=== PATIENT | male | born 1945 | race Caucasian/White ===

== ENCOUNTER → 2016-08-09 | Outpatient (CLI) | payer MEDICARE ==
--- NOTE | 2016-08-09 15:19 | CT ---
EXAMINATION TYPE: CT cervical spine wo con DATE OF EXAM: 08/09/2016 3:07 PM COMPARISON: NONE HISTORY: Headaches and neck pain. CT DLP: 358.80 mGycm. Automated Exposure Control for Dose Reduction was Utilized. TECHNIQUE: CT scan of the cervical spine is obtained without contrast, axial images are obtained, sa gittal and coronal reformatted images are also reviewed. FINDINGS: Cervical spine is visualized in its entirety from C1 through upper thoracic levels, demonst rates satisfactory alignment without evidence of acute fracture or dislocation. Prevertebral soft ti ssue appears within normal limits. The C1-C2 articulation is within normal limits on the coronal ela ges. Vertebral body heights are maintained. There is moderate disc space narrowing and spurring at C5 -C6 and C6-C7 levels. Posterior spur disc complex is seen at C6-C7 level on sagittal image 37 effacin g anterior thecal sac. Review of axial images shows the C2-C3 level to appear within normal limits. Axial images at C3-C4 level show uncovertebral facet degenerative changes bilaterally with marginal s purring causing asymmetric moderate to severe right-sided neural foraminal narrowing and mild left-si ded neural foraminal narrowing seen best on axial image 60. Spinal canal is preserved. Axial images at C4-C5 level show right-sided uncovertebral facet degenerative changes and marginal sp urring causing advanced right-sided neural foraminal narrowing near axial image 67. Left-sided neural foramen is patent. Spinal canal is preserved. Axial images at C5-C6 level show some left-sided marginal spurring with posterior spur disc complex m ildly effacing the anterior thecal sac, there is mild right and mild to moderate left-sided neural fo raminal narrowing at this level identified. Axial images at C6-C7 level show posterior spur disc complex effacing anterior thecal near axial ela ge 81 through 83 with advanced right and moderate to advanced left-sided neural foraminal narrowing s een as there is marginal spurring present. Axial images at C7-T1 level show uncovertebral facet degenerative changes bilaterally causing moderat e to advanced left-sided neural foraminal narrowing near axial image 89, right-sided neural foramen i s patent. There is heterogeneity of thyroid which is felt normal in size. There is apical pleural thickening bilaterally extending posteriorly on the right. There is mild calc ified plaques at bilateral carotid bulbs. IMPRESSION: Multilevel degenerative changes in the cervical spine as detailed above most prominent at C6-C7 level.
== END | disposition home or self-care (01) ==
LOC: RADCTMAIN 14:51
PROVIDERS: ATTEND Psychiatry & Neurology Neurology
DX: M47.812 Spondylosis without myelopathy or radiculopathy, cervical region (principal)
CPT/HCPCS: 72125

== ENCOUNTER → 2017-08-13 | Outpatient (CLI) | payer MEDICARE ==
--- NOTE | 2017-08-13 16:25 | CT ---
EXAMINATION TYPE: CT cervical spine wo con DATE OF EXAM: 08/13/2017 COMPARISON: NONE HISTORY: Neck pain and stiffness CT DLP: [address] of the cervical spine was performed with bone and soft tissue window settings submitted . Coronal and sagittal reconstruction is obtained. C2-3: Within normal limits. C3-4: Moderate degenerative disc space narrowing. Mild posterior disc bulge. No herniation or central stenosis. Degenerative change of the uncovertebral joints resulting in mild bilateral foraminal encr oachment. C4-5: Mild degenerative disc space narrowing. Mild posterior disc bulge. No herniation or central theresa nosis. Mild right foraminal encroachment. C5-6: Moderate degenerative disc space narrowing. Posterior disc bulge with partial encapsulating spu r resulting in disc endplate complex. No evidence for central stenosis. Mild bilateral foraminal encr oachment. C6-7:Moderate degenerative disc space narrowing. Posterior disc bulge with partial encapsulating spur resulting in disc endplate complex. No evidence for central stenosis. Mild bilateral foraminal encro achment. C7-T1: Within normal limits. There is normal alignment and prevertebral soft tissues. I do not see evidence for fracture or sublu xation. The lung apices are clear IMPRESSION: 1. Degenerative disc space narrowing and degenerative disc disease with disc bulging and disc endplat e complex as noted. 2. Foraminal encroachment as detailed above.
== END | disposition home or self-care (01) ==
LOC: RADCTMAIN 15:10
PROVIDERS: ATTEND Psychiatry & Neurology Neurology
DX: M48.02 Spinal stenosis, cervical region (principal); M50.30 Other cervical disc degeneration, unspecified cervical region; M50.21 Other cervical disc displacement, high cervical region; Z91.041 Radiographic dye allergy status; Z88.8 Allergy status to other drugs, medicaments and biological substances
CPT/HCPCS: 72125

== ENCOUNTER → 2017-08-15 | Outpatient (CLI) | payer MEDICARE ==
--- NOTE | 2017-08-15 11:00 | FL ---
EXAMINATION TYPE: FL barium swallow DATE OF EXAM: 08/15/2017 CLINICAL HISTORY: Reflux per order. History of Jermain fundoplication surgery 2-3 years ago with progr essive dysphasia or food feeling getting stuck. History of prior dilatation after surgery. TECHNIQUE: A single contrast esophagram is performed utilizing barium. A total of 29 seconds of flu oroscopic time was utilized during procedure. 34 spot images are saved for surgeon. COMPARISON: Upper GI study February 08, 2016 FINDINGS: The esophagus shows some abnormal secondary and tertiary contractions but fairly satisfacto ry emptying into stomach, some gastric folds are seen above diaphragm with good passage at level of d iaphragmatic hiatus into gastric fundus. No evidence of recurrent hiatal hernia or significant focal stricture noted. No contrast extravasation to suggest leak. IMPRESSION: No significant stricture or narrowing is seen to account for patient's symptoms. Some u nderlying esophageal dysmotility redemonstrated.
== END | disposition home or self-care (01) ==
LOC: RADFLMAIN 09:57
PROVIDERS: ATTEND Surgery
DX: K22.4 Dyskinesia of esophagus (principal)
CPT/HCPCS: 74220

== ENCOUNTER → 2018-02-25 | Outpatient (CLI) | payer MEDICARE ==
[2018-02-26 12:27] LABS: Albumin 3.1 g/dL (3.5-5.0); Calcium 9.1 mg/dL (8.4-10.2); Potassium 4.5 mmol/L (3.5-5.1); Total Bilirubin 0.6 mg/dL (0.2-1.3); Total Protein 5.6 g/dL (6.3-8.2)
== END | disposition home or self-care (01) ==
LOC: LABPAT 10:55
PROVIDERS: ATTEND Internal Medicine Clinical Cardiac Electrophysiology
DX: Z01.812 Encounter for preprocedural laboratory examination (principal); I48.2 Chronic atrial fibrillation
CPT/HCPCS: 80053; 84443

== ENCOUNTER → 2018-03-02 | Day surgery (SDC) | payer MEDICARE ==
[2018-02-24 08:50] VITALS: BMI 20.2
[~2018-03-02] MED LIST: IV FLUID CONTINUATION 450 ML IV ONE; LACTATED RINGERS 1,000 ML IV SCH; MIDAZOLAM 2 MG/2 ML VIAL ONE; PROPOFOL 10 MG/ML 50 ML VIAL IV ONE; SODIUM CHLORIDE 0.9% 1,000 ML IV SCH
[2018-03-02 11:40] VITALS: TEMP 96.8
--- NOTE | 2018-03-02 11:57 | PCN ---
PROCEDURE NOTE Mr. Godoy is a 72-year-old male patient who has history of polymorphic VT and I adjusted his medications, but his R-waves were very diminutive in the bipolar mode. Therefore he was brought in for DFT testing under anesthesia. The ICD was interrogated. The bipolar R-waves were 2.1 mV. The integrated bipolar signals are greater than 4 mV. Therefore, we reprogrammed this into the integrated bipolar mode for DFT testing. SVC coil was left turned on. Tip to coil R-waves at the end of the procedure were 4.9 mV. Thresholds were within normal limits. Pacing impedance 304 ohms, RV coil impedance was 33 ohms, SVC coil impedance 42 ohms, pacing threshold 1.4 V at 0.4 milliseconds. DFT TESTING: DFT level testing was performed under anesthesia. Shock and T-wave protocol was used to induce ventricular fibrillation this was adequately and appropriately detected at sensitivity and successfully internally defibrillated with a 10-joule shock. The charge time was 1.8 seconds. Shock impedance 35 ohms. No post shock noise. Type 2 conversion noted. The defibrillator was then reprogrammed in the bipolar mode with the SVC coil turned on. First cardioversion at 10 joules. First defibrillation at 20 joules, appropriate antitachycardia pacing cardioversion defibrillations were programmed. RESULT: Successful sensing of ventricular fibrillation in the bipolar mode. The device was programmed accordingly and long detection intervals were programmed. The patient tolerated the procedure well without any acute complications. PLAN: Continue current medications. No antiarrhythmic drug therapy for now. MMODL / IJN: [id number] /
[2018-03-02 13:18] VITALS: BP 102/74; PULSE 107; RESP 16
== END ==
LOC: CATHEP 09:29
PROVIDERS: ATTEND Internal Medicine Clinical Cardiac Electrophysiology
DX: I47.2 Ventricular tachycardia (principal); Z45.02 Encounter for adjustment and management of automatic implantable cardiac defibrillator; I48.91 Unspecified atrial fibrillation; I11.0 Hypertensive heart disease with heart failure; I50.9 Heart failure, unspecified; E78.5 Hyperlipidemia, unspecified; I25.2 Old myocardial infarction; D86.9 Sarcoidosis, unspecified; N28.9 Disorder of kidney and ureter, unspecified; N42.9 Disorder of prostate, unspecified; Z86.73 Personal history of transient ischemic attack (TIA), and cerebral infarction without residual deficits; M19.90 Unspecified osteoarthritis, unspecified site; K21.9 Gastro-esophageal reflux disease without esophagitis; Z79.01 Long term (current) use of anticoagulants; Z79.891 Long term (current) use of opiate analgesic; Z79.52 Long term (current) use of systemic steroids; Z79.899 Other long term (current) drug therapy; Z88.8 Allergy status to other drugs, medicaments and biological substances; Z91.048 Other nonmedicinal substance allergy status; Z91.09 Other allergy status, other than to drugs and biological substances
CPT/HCPCS: 93642; J2250; J2704

== ENCOUNTER 2018-04-03 04:43 | Inpatient (IN) | payer MEDICARE ==
[~2018-04-03 04:43] MED LIST changes: +HALOPERIDOL LACTATE 5 MG/ML 1 ML VIAL IVP ONE; -IV FLUID CONTINUATION 450 ML IV ONE; -LACTATED RINGERS 1,000 ML IV SCH; -MIDAZOLAM 2 MG/2 ML VIAL ONE; -PROPOFOL 10 MG/ML 50 ML VIAL IV ONE; -SODIUM CHLORIDE 0.9% 1,000 ML IV SCH
[2018-04-03] MEDS ORDERED: SODIUM CHLORIDE 0.9% 1,000 ML IV STA (04:46)
--- NOTE | 2018-04-03 04:51 | ED ---
Altered Mental Status HPI - General Stated Complaint: Altered Mental Status Time Seen by Provider: 04/03/18 04:46 Source: RN notes reviewed, old records reviewed - History of Present Illness Initial Comments: This is a 72-year-old male the ER for evaluation. She is presenting today for evaluation regards to altered mental state. Patient unable of history history edema EMS and patient's chart, patient has been altered all night per the , she states that he actually this last time he had a urinary tract infection MD Complaint: altered mental status, confusion, decreased responsiveness -: hour(s) Severity: severe Consistency of Symptoms: waxing and waning, getting worse Context: recent fever Associated Symptoms: denies other symptoms - Related Data Home Medications Medication Instructions Recorded Confirmed Albuterol Sulfate [Proair Hfa] 2 puff INHALATION RT-BID PRN 10/27/13 02/24/18 Carvedilol [Coreg*] 25 mg PO BID 10/27/13 02/24/18 Citalopram Hydrobromide 20 mg PO QAM 10/27/13 02/24/18 [Citalopram HBr] Dicyclomine [Bentyl] 20 mg PO AC-BID PRN 10/27/13 02/24/18 Lovastatin [Mevacor] 40 mg PO QAM 10/27/13 02/24/18 Ergocalciferol [Vitamin D2 50,000 unit PO [id number] 12/23/14 02/24/18 (DRISDOL)] Furosemide [Lasix] 40 mg PO DAILY 12/23/14 02/24/18 Fludrocortisone [Florinef] 0.1 mg PO QAM 02/27/15 02/24/18 oxyCODONE-APAP 7.5-325MG [Percocet 1 tab PO TID PRN 03/03/15 02/24/18 7.5-325 mg] Citalopram Hydrobromide 20 mg PO HS 03/27/16 02/24/18 [Citalopram HBr] Finasteride [Proscar] 5 mg PO QAM 03/27/16 02/24/18 Fludrocortisone [Florinef] 0.05 mg PO HS 03/27/16 02/24/18 Levothyroxine Sodium [Synthroid] 25 mcg PO DAILY 03/27/16 02/24/18 Magnesium Chloride [Slow-Mag] 64 mg PO BID 03/27/16 02/24/18 clonazePAM [KlonoPIN] 0.5 mg PO HS 03/27/16 02/24/18 Eylea-Injection 1 dose RIGHT EYE Q42D 02/24/18 Furosemide [Lasix] 60 mg PO PC-LUNCH 02/24/18 02/24/18 Hydrocortisone [Cortef] 10 mg PO BID 02/24/18 02/24/18 Methylcellulose (with Sugar) 1 dose PO DAILY 02/24/18 02/24/18 [Citrucel Powder] Midodrine HCl [ProAmatine] 10 mg PO BID 02/24/18 02/24/18 Potassium Chloride [K-Tab ER] 20 meq PO DAILY 02/24/18 02/24/18 Warfarin [Coumadin] 2.5 mg PO DAILY 02/24/18 02/24/18 Previous Rx's Medication Instructions Recorded Lisinopril [Zestril] 2.5 mg PO DAILY #30 tab 04/01/16 Spironolactone [Aldactone] 25 mg PO DAILY #30 tab 04/01/16 Tamsulosin [Flomax] 0.4 mg PO PC-SUPPER #30 cap.er.24h 04/01/16 Allergies Allergy/AdvReac Type Severity Reaction Status Date / Time Iodinated Contrast- Oral and Allergy Rash/Hives Verified 04/03/18 04:53 IV Dye [Iodinated Contrast Media - IV Dye] nitroglycerin Allergy passed out Verified 04/03/18 04:53 piperacillin sodium Allergy Confusion Verified 04/03/18 04:53 [From Zosyn] tazobactam sodium Allergy Confusion Verified 04/03/18 04:53 [From Zosyn] adhesive AdvReac SKIN TURNS Verified 04/03/18 04:53 RED Review of Systems ROS Statement: Those systems with pertinent positive or pertinent negative responses have been documented in the HPI. ROS Other: All systems not noted in ROS Statement are negative. Past Medical History Past Medical History: Atrial Fibrillation, Heart Failure, CVA/TIA, GERD/Reflux, Hearing Disorder / Deafness, Hyperlipidemia, Hypertension, Memory Impairment, Myocardial Infarction ([place]), Osteoarthritis (OA), Prostate Disorder, Respiratory Disorder Additional Past Medical History / Comment(s): CVA BEHIND RT EYE-POOR VISION, migraine & cluster headaches,, [place]'s x 2 ( age unknown), cardiomyopathy, hole in stomach from excedrin -it caused aspiration after which he was in an induced coma and on a ventilator for 9 days, sarcoidosis of lungs, abdominal and stomach pain, frequent diarrhea, several head injuries as a child, arthiritis bilateral knees and hips, multiple lipomas, kidney stones, enlarged prostate, edema lower legs. Having difficulty swallowing now. Last Myocardial Infarction Date:: unknown History of Any Multi-Drug Resistant Organisms: MRSA Date of last positivie culture/infection: 08/15/09 MDRO Source:: LUNGS Past Surgical History: AICD, Bowel Resection, Heart Catheterization With Stent, Hernia Repair, Orthopedic Surgery, Pacemaker, Prostate Surgery, Tonsillectomy Additional Past Surgical History / Comment(s): 12/28/14 Lap jose fundoplasty with mesh and lap lysis of adhesions. Other SX: AICD 2008 with replacement 2013 (medtronic), 1995 bowel resection d/t perforation with colostomy with eventual reversal of colostomy, 2009-surgery for "hole in stomach", 2007 blephoplasty bilaterally, 2001 deviated septum, 2003 TURP, 1975 vasectomy, 2012 R rotator cuff, surgery on "head" due to injuries, numerous lipoma removals -4 from L leg, 05/2014, 08/2013 EGD for removal of dentist spray nozzle, 1955 Aguilar surgery at [facility], 1975 vasectomy, lithrotripsy, bilateral inquinal hernia repairs with R side done x3, cardiac caths with stents Past Anesthesia/Blood Transfusion Reactions: Postoperative Nausea & Vomiting ( PONV) Additional Past Anesthesia/Blood Transfusion Reaction / Comment(s): Pt has never recieved blood Date of Last Stent Placement:: 2007 Type of Cardiac Device: AICD Device Placement Date:: 08/2013 Medtronic Smoking Status: Former smoker - Past Family History Brother(s) Family Medical History: Cancer Father Family Medical History: Renal Disease, Respiratory Disorder Additional Family Medical History / Comment(s): Father had some kind of problem with his lungs. Mother Family Medical History: Coronary Artery Disease (CAD), Dementia Sister(s) Family Medical History: No Reported History General Exam Limitations: altered mental status General appearance: alert, in no apparent distress Head exam: Present: atraumatic, normocephalic, normal inspection Eye exam: Present: normal appearance, PERRL, EOMI. Absent: scleral icterus, conjunctival injection, periorbital swelling ENT exam: Present: normal exam, mucous membranes moist Neck exam: Present: normal inspection. Absent: tenderness, meningismus, lymphadenopathy Respiratory exam: Present: normal lung sounds bilaterally. Absent: respiratory distress, wheezes, rales, rhonchi, stridor Cardiovascular Exam: Present: regular rate, normal rhythm, normal heart sounds. Absent: systolic murmur, diastolic murmur, rubs, gallop, clicks GI/Abdominal exam: Present: soft, normal bowel sounds. Absent: distended, tenderness, guarding, rebound, rigid Extremities exam: Present: normal inspection, full ROM, normal capillary refill. Absent: tenderness, pedal edema, joint swelling, calf tenderness Back exam: Present: normal inspection Neurological exam: Present: alert, oriented X3, CN II-XII intact Psychiatric exam: Present: normal affect, normal mood Skin exam: Present: warm, dry, intact, normal color. Absent: rash Course Vital Signs 04/03/18 04/03/18 04/03/18 04:47 05:17 05:30 Temperature 101.8 F H Pulse Rate 92 90 87 Respiratory 20 20 18 Rate Blood Pressure 147/94 136/84 141/87 O2 Sat by Pulse 95 95 95 Oximetry 04/03/18 04/03/18 05:45 06:00 Temperature Pulse Rate 74 77 Respiratory 16 15 Rate Blood Pressure 154/77 152/90 O2 Sat by Pulse 96 100 Oximetry - Reevaluation(s) Reevaluation #1: 04/03/18 06:28 Medical record is reviewed noncontributory Reevaluation #2: 04/03/18 06:28 Patient with no change in mental state Medical Decision Making - Medical Decision Making 72 male the ER for evaluation with altered mental status. Patient will be admitted for continued monitoring of altered mental status fever rel Petrini a place on antibiotics. - Lab Data Result diagrams: 04/03/18 04:55 04/03/18 04:55 Lab Results 04/03/18 04/03/18 04/03/18 Range/Units 04:55 04:55 04:55 WBC 8.8 (3.8-10.6) k/uL RBC 4.74 (4.30-5.90) m/uL Hgb 13.9 (13.0-17.5) gm/dL Hct 44.2 (39.0-53.0) % MCV 93.3 (80.0-100.0) fL MCH 29.4 (25.0-35.0) pg MCHC 31.5 (31.0-37.0) g/dL RDW 15.3 (11.5-15.5) % Plt Count 217 (150-450) k/uL Neutrophils % 68 % Lymphocytes % 15 % Monocytes % 9 % Eosinophils % 4 % Basophils % 1 % Neutrophils # 6.0 (1.3-7.7) k/uL Lymphocytes # 1.3 (1.0-4.8) k/uL Monocytes # 0.8 (0-1.0) k/uL Eosinophils # 0.3 (0-0.7) k/uL Basophils # 0.1 (0-0.2) k/uL PT (9.0-12.0) sec INR (<1.2) APTT (22.0-30.0) sec Sodium 138 (137-145) mmol/L Potassium 3.9 (3.5-5.1) mmol/L Chloride 100 (98-107) mmol/L Carbon Dioxide 32 H (22-30) mmol/L Anion Gap 6 mmol/L BUN 22 H (9-20) mg/dL Creatinine 1.20 (0.66-1.25) mg/dL Est GFR (CKD-EPI)AfAm 69 (>60 ml/min/1.73 sqM) Est GFR (CKD-EPI)NonAf 59 (>60 ml/min/1.73 sqM) Glucose 103 H (74-99) mg/dL Plasma Lactic Acid Jun (0.7-2.0) mmol/L Calcium 9.0 (8.4-10.2) mg/dL Phosphorus 1.4 L (2.5-4.5) mg/dL Magnesium 1.7 (1.6-2.3) mg/dL Total Bilirubin 1.2 (0.2-1.3) mg/dL AST 25 (17-59) U/L ALT 30 (21-72) U/L Alkaline Phosphatase 64 (38-126) U/L Total Creatine Kinase 30 L (55-170) U/L CK-MB (CK-2) 1.8 (0.0-2.4) ng/mL CK-MB (CK-2) Rel Index 6.0 Troponin I 0.175 H* (0.000-0.034) ng/mL Total Protein 6.3 (6.3-8.2) g/dL Albumin 3.4 L (3.5-5.0) g/dL Urine Color Urine Appearance (Clear) Urine pH (5.0-8.0) Ur Specific [place] (1.001-1.035) Urine Protein (Negative) Urine Glucose (UA) (Negative) Urine Ketones (Negative) Urine Blood (Negative) Urine Nitrite (Negative) Urine Bilirubin (Negative) Urine Urobilinogen (<2.0) mg/dL Ur Leukocyte Esterase (Negative) Influenza Type A RNA (Not Detectd) Influenza Type B (PCR) (Not Detectd) 04/03/18 04/03/18 04/03/18 Range/Units 04:55 04:55 04:55 WBC (3.8-10.6) k/uL RBC (4.30-5.90) m/uL Hgb (13.0-17.5) gm/dL Hct (39.0-53.0) % MCV (80.0-100.0) fL MCH (25.0-35.0) pg MCHC (31.0-37.0) g/dL RDW (11.5-15.5) % Plt Count (150-450) k/uL Neutrophils % % Lymphocytes % % Monocytes % % Eosinophils % % Basophils % % Neutrophils # (1.3-7.7) k/uL Lymphocytes # (1.0-4.8) k/uL Monocytes # (0-1.0) k/uL Eosinophils # (0-0.7) k/uL Basophils # (0-0.2) k/uL PT 13.8 H (9.0-12.0) sec INR 1.5 H (<1.2) APTT 22.4 (22.0-30.0) sec Sodium (137-145) mmol/L Potassium (3.5-5.1) mmol/L Chloride (98-107) mmol/L Carbon Dioxide (22-30) mmol/L Anion Gap mmol/L BUN (9-20) mg/dL Creatinine (0.66-1.25) mg/dL Est GFR (CKD-EPI)AfAm (>60 ml/min/1.73 sqM) Est GFR (CKD-EPI)NonAf (>60 ml/min/1.73 sqM) Glucose (74-99) mg/dL Plasma Lactic Acid Jun 2.4 H* (0.7-2.0) mmol/L Calcium (8.4-10.2) mg/dL Phosphorus (2.5-4.5) mg/dL Magnesium (1.6-2.3) mg/dL Total Bilirubin (0.2-1.3) mg/dL AST (17-59) U/L ALT (21-72) U/L Alkaline Phosphatase (38-126) U/L Total Creatine Kinase (55-170) U/L CK-MB (CK-2) (0.0-2.4) ng/mL CK-MB (CK-2) Rel Index Troponin I (0.000-0.034) ng/mL Total Protein (6.3-8.2) g/dL Albumin (3.5-5.0) g/dL Urine Color Urine Appearance (Clear) Urine pH (5.0-8.0) Ur Specific [place] (1.001-1.035) Urine Protein (Negative) Urine Glucose (UA) (Negative) Urine Ketones (Negative) Urine Blood (Negative) Urine Nitrite (Negative) Urine Bilirubin (Negative) Urine Urobilinogen (<2.0) mg/dL Ur Leukocyte Esterase (Negative) Influenza Type A RNA Not Detected (Not Detectd) Influenza Type B (PCR) Not Detected (Not Detectd) 04/03/18 Range/Units 05:00 WBC (3.8-10.6) k/uL RBC (4.30-5.90) m/uL Hgb (13.0-17.5) gm/dL Hct (39.0-53.0) % MCV (80.0-100.0) fL MCH (25.0-35.0) pg MCHC (31.0-37.0) g/dL RDW (11.5-15.5) % Plt Count (150-450) k/uL Neutrophils % % Lymphocytes % % Monocytes % % Eosinophils % % Basophils % % Neutrophils # (1.3-7.7) k/uL Lymphocytes # (1.0-4.8) k/uL Monocytes # (0-1.0) k/uL Eosinophils # (0-0.7) k/uL Basophils # (0-0.2) k/uL PT (9.0-12.0) sec INR (<1.2) APTT (22.0-30.0) sec Sodium (137-145) mmol/L Potassium (3.5-5.1) mmol/L Chloride (98-107) mmol/L Carbon Dioxide (22-30) mmol/L Anion Gap mmol/L BUN (9-20) mg/dL Creatinine (0.66-1.25) mg/dL Est GFR (CKD-EPI)AfAm (>60 ml/min/1.73 sqM) Est GFR (CKD-EPI)NonAf (>60 ml/min/1.73 sqM) Glucose (74-99) mg/dL Plasma Lactic Acid Jun (0.7-2.0) mmol/L Calcium (8.4-10.2) mg/dL Phosphorus (2.5-4.5) mg/dL Magnesium (1.6-2.3) mg/dL Total Bilirubin (0.2-1.3) mg/dL AST (17-59) U/L ALT (21-72) U/L Alkaline Phosphatase (38-126) U/L Total Creatine Kinase (55-170) U/L CK-MB (CK-2) (0.0-2.4) ng/mL CK-MB (CK-2) Rel Index Troponin I (0.000-0.034) ng/mL Total Protein (6.3-8.2) g/dL Albumin (3.5-5.0) g/dL Urine Color Yellow Urine Appearance Clear (Clear) Urine pH 5.5 (5.0-8.0) Ur Specific [place] 1.011 (1.001-1.035) Urine Protein Negative (Negative) Urine Glucose (UA) Negative (Negative) Urine Ketones Negative (Negative) Urine Blood Negative (Negative) Urine Nitrite Negative (Negative) Urine Bilirubin Negative (Negative) Urine Urobilinogen <2.0 (<2.0) mg/dL Ur Leukocyte Esterase Negative (Negative) Influenza Type A RNA (Not Detectd) Influenza Type B (PCR) (Not Detectd) - EKG Data -: EKG Interpreted by Me (EKG shows rhythm of 87, QRS 90, QTc 418) - Radiology Data Radiology results: report reviewed (CT brain chest x-rays negative for acute disease), image reviewed Disposition Clinical Impression: Delirium due to general medical condition, Hypomagnesemia, Altered mental status, Fever Disposition: ADMITTED IP TO THIS [facility] Condition: Fair Is patient prescribed a controlled substance at d/c from ED?: No Referrals: Merritt Patel MD [Primary Care Provider] - 1-2 days
[2018-04-03 05:27] LABS: Basophils # (A) 0.1 k/uL (0-0.2); Basophils % (A) 1 %; Eosinophils # (A) 0.3 k/uL (0-0.7); Eosinophils % (A) 4 %; HCT 44.2 % (39.0-53.0); HGB 13.9 gm/dL (13.0-17.5); Lymphocytes # (A) 1.3 k/uL (1.0-4.8); Lymphocytes % (A) 15 %; MCH 29.4 pg (25.0-35.0); MCHC 31.5 g/dL (31.0-37.0); MCV 93.3 fL (80.0-100.0); Mean Platelet Volume 7.8; Monocytes # (A) 0.8 k/uL (0-1.0); Monocytes % (A) 9 %; Neutrophils % (A) 68 %; Platelet Count 217 k/uL (150-450); RBC 4.74 m/uL (4.30-5.90); RDW 15.3 % (11.5-15.5); WBC 8.8 k/uL (3.8-10.6)
[2018-04-03 05:27] LABS: Appearance,Urine Clear (Clear); Bilirubin,Urine Negative (Negative); Blood,Urine Negative (Negative); Color,Urine Yellow; Glucose,Urine (UA) Negative (Negative); Ketones,Urine Negative (Negative); Leukocyte Esterase,Urine Negative (Negative); Nitrite,Urine Negative (Negative); PH, Urine 5.5 (5.0-8.0); Protein,Urine Negative (Negative); Specific Gravity,Urine 1.011 (1.001-1.035); Urobilinogen,Urine <2.0 mg/dL (<2.0)
[2018-04-03 05:37] LABS: Albumin 3.4 g/dL (3.5-5.0); Magnesium 1.7 mg/dL (1.6-2.3); Phosphorus 1.4 mg/dL (2.5-4.5); Potassium 3.9 mmol/L (3.5-5.1); Total Bilirubin 1.2 mg/dL (0.2-1.3); Total Protein 6.3 g/dL (6.3-8.2)
[2018-04-03 05:43] LABS: INR 1.5 (<1.2); Partial Thromboplastin Time 22.4 sec (22.0-30.0); Prothrombin Time 13.8 sec (9.0-12.0)
--- NOTE | 2018-04-03 06:05 | XR ---
EXAMINATION TYPE: XR chest 2V DATE OF EXAM: 04/03/2018 COMPARISON: 03/28/2016 HISTORY: Altered mental status TECHNIQUE: Frontal and lateral views of the chest are obtained. FINDINGS: Heart is moderately enlarged. There is no pulmonary consolidation. There is slight pulmona ry vascular congestion. There is left axillary pacemaker with the lead tip in the right ventricle. Th ere are chest leads. IMPRESSION: Cardiomegaly. There is new mild pulmonary vascular congestion compared to last exam
[2018-04-03 06:08] LABS: Creatine Kinase MB 1.8 ng/mL (0.0-2.4)
--- NOTE | 2018-04-03 06:15 | CT ---
EXAMINATION TYPE: CT brain wo con DATE OF EXAM: 04/03/2018 COMPARISON: November 18, 2015 HISTORY: ams CT DLP: 1470.3 mGycm Automated exposure control for dose reduction was used. FINDINGS: There is cerebral cortical atrophy. There is no mass effect nor midline shift. There is no sign of in tracranial hemorrhage. The calvarium is intact. IMPRESSION: CEREBRAL ATROPHY. NO ACUTE INTRACRANIAL ABNORMALITY. NO CHANGE. STABLE MILD CHRONIC LEFT-SIDED ETHMOI D SINUSITIS.
[2018-04-03 06:27] LABS: Troponin I 0.175 ng/mL (0.000-0.034)
[2018-04-03] MEDS ORDERED: FAMOTIDINE 20 MG/2 ML VIAL IV STA ×2 (06:54→07:12)
[2018-04-03] MEDS ORDERED: diphenhydrAMINE 50 MG/ML 1 ML VIAL IVP STA ×2 (06:54→07:12)
[2018-04-03] MEDS ORDERED: LORazepam 2 MG/ML INJ IV STA ×2 (06:54→08:54)
[2018-04-03] MEDS ORDERED: MORPHINE SULFATE 4 MG/ML SYRINGE IVP STA (06:54)
[2018-04-03] MEDS ORDERED: methylPREDNISolone SOD SUCCI 125 MG/2 ML VIAL IV STA ×2 (06:54→07:12)
[2018-04-03] MEDS ORDERED: metroNIDAZOLE-NS PMX 500 MG in SALINE 1 100ML.BAG IVPB STA (07:05)
[2018-04-03] MEDS ORDERED: LEVOFLOXACIN 750MG-D5W PMX 750 MG in DEXTROSE/WATER 1 150ML.BAG IVPB STA (07:06)
[2018-04-03] MEDS: SODIUM CHLORIDE 0.9% 500 ML 500 ML IV SCH ×2 (07:21→07:42)
[2018-04-03] MEDS: SODIUM CHLORIDE 0.9% 1,000 ML IV SCH ×3 (07:41→21:56)
[2018-04-03] MEDS ORDERED: ZIPRASIDONE 20 MG VIAL IM STA (08:54)
--- NOTE | 2018-04-03 10:42 | CT ---
EXAMINATION TYPE: CT abdomen pelvis w con DATE OF EXAM: 04/03/2018 COMPARISON: HISTORY: ALTERED MENTAL STATUS/AB PAIN CT DLP: 363.9 mGycm CONTRAST: CT scan of the abdomen and pelvis is performed without Oral Contrast and with IV Contrast, patient in jected with 100 mL of Isovue 300. Contrast-enhanced CT of the abdomen and pelvis was performed. Portions of the study are limited by st reak artifact from the patient's hand positioning and metallic ring artifact. Portions of the abdomen are also cut off the [id number]. FINDINGS: LUNG BASES-: Massive cardiomegaly. Bilateral pleural effusions noted. LIVER/GB: No calcified gallstones. No space occupying hepatic lesion. Biliary tree is of normal ca liber. PANCREAS: No inflammation. No distinct mass. SPLEEN: No splenic enlargement. No lesion seen. ADRENALS: No nodule. No thickening. KIDNEYS/BLADDER: No hydronephrosis. No nephrolithiasis. No distinct renal mass. Urinary bladder g rossly unremarkable. BOWEL: Mild distention small bowel which may reflect mild ileus. Mild fecal stasis. The appendix is p oorly visualized. No inflammation. GENITAL ORGANS: No gross abnormality. LYMPH NODES: No greater than 1cm abdominal or pelvic lymph nodes are appreciated. AORTA: No significant abnormality. OSSEOUS STRUCTURES: No significant abnormality is seen. OTHER: No significant additional abnormality is seen. IMPRESSION: 1. Limited study. 2. Massive cardiomegaly with bilateral pleural effusion small in size. 3. Small bowel ileus. Correlate for enteritis. 4. Mild constipation.
[2018-04-03] MEDS ORDERED: BUTALB/APAP/CAFF 50-325-40MG TAB PO PRN (11:22)
[2018-04-03] MEDS ORDERED: CARVEDILOL 12.5 MG TAB PO SCH (11:30)
[2018-04-03] MEDS ORDERED: CITALOPRAM HYDROBROMIDE 20 MG TAB PO SCH (11:30)
[2018-04-03] MEDS ORDERED: HYDROCORTISONE 20 MG TAB PO SCH (11:30)
[2018-04-03] MEDS ORDERED: DICYCLOMINE 20 MG TAB PO SCH (12:30)
--- NOTE | 2018-04-03 13:05 | P.HPIM ---
History of Present Illness H&P Date: 04/03/18 Chief Complaint: encephalopathy/ acute febrile illness. This is a 72-year-old male one of Dr. Patel with a previous medical history significant for hypertension and hypertensive cardiovascular disease, hyperlipidemia, memory impairment, osteoarthritis, history of chronic systolic heart failure, atrial fibrillation, cardiomyopathy with prior AICD implantation , history of hiatal hernia status post Jose fundoplication, patient went and had pizza with his yesterday and he went to bed he woke up at 3:00 in the morning complain of severe headache associated with severe encephalopathy he could not follow much commands, his called EMS and the patient was brought into the ER at [facility] where he had a computed tomography scan of the brain that did not show any evidence of acute of normalities, patient also was was found to have a temperature of 101.5 rectally and the patient had negative urinalysis at the same time chest x-ray did not show any evidence of acute pneumonia according to the the patient was complaining of a dry cough over the last few days he was feeling congested a bit better than that there was no other abnormalities he was sitting with his nephew who traveled from [place] to see him and his nephew was not sick at all Kulwant there is no recent travel, there is no recent sick contacts according to the , we planned to do a lumbar puncture with the patient however his INR was 1.5 this will be placed on hold until 24 hours after his INR is down to 1.1 so the patient does not have any complications with spinal bleed. Patient will be seen in consultation by neurology as well as infectious disease, history of troponin was slightly elevated but I believe is due to the sepsis , I'm highly suspicious of viral encephalitis versus meningitis, and the patient need to have a lumbar puncture for evaluation of protein and cell count and culture along with encephalitis panel including West Nile virus. Review of Systems ROS unobtainable: due to mental status (patient has severe mental status changes and a full review of system could not be obtained.) Constitutional: Reports chronic headaches, Reports chronic pain, Reports fatigue , Reports fever, Reports lethargy, Reports malaise, Reports sweats, Reports weakness, Reports weight loss, Denies anorexia Eyes: denies blurred vision, denies bulging eye, denies decreased vision Past Medical History Past Medical History: Atrial Fibrillation, Heart Failure, CVA/TIA, GERD/Reflux, Hearing Disorder / Deafness, Hyperlipidemia, Hypertension, Memory Impairment, Myocardial Infarction ([place]), Osteoarthritis (OA), Prostate Disorder, Respiratory Disorder Additional Past Medical History / Comment(s): CVA BEHIND RT EYE-POOR VISION, migraine & cluster headaches,, NJ's x 2 ( age unknown), cardiomyopathy, hole in stomach from excedrin -it caused aspiration after which he was in an induced coma and on a ventilator for 9 days, sarcoidosis of lungs, abdominal and stomach pain, frequent diarrhea, several head injuries as a child, arthiritis bilateral knees and hips, multiple lipomas, kidney stones, enlarged prostate, edema lower legs. Having difficulty swallowing now. Last Myocardial Infarction Date:: unknown History of Any Multi-Drug Resistant Organisms: MRSA Date of last positivie culture/infection: 08/15/09 MDRO Source:: LUNGS Past Surgical History: AICD, Bowel Resection, Heart Catheterization With Stent, Hernia Repair, Orthopedic Surgery, Pacemaker, Prostate Surgery, Tonsillectomy Additional Past Surgical History / Comment(s): 12/28/14 Lap jose fundoplasty with mesh and lap lysis of adhesions. Other SX: AICD 2008 with replacement 2013 (medtronic), 1995 bowel resection d/t perforation with colostomy with eventual reversal of colostomy, 2009-surgery for "hole in stomach", 2007 blephoplasty bilaterally, 2001 deviated septum, 2003 TURP, 1975 vasectomy, 2012 R rotator cuff, surgery on "head" due to injuries, numerous lipoma removals -4 from L leg, 05/2014, 08/2013 EGD for removal of dentist spray nozzle, 1955 Agu[facility] surgery at [facility], 1975 vasectomy, lithrotripsy, bilateral inquinal hernia repairs with R side done x3, cardiac caths with stents Past Anesthesia/Blood Transfusion Reactions: Postoperative Nausea & Vomiting ( PONV) Additional Past Anesthesia/Blood Transfusion Reaction / Comment(s): Pt has never recieved blood Date of Last Stent Placement:: 2007 Type of Cardiac Device: AICD Device Placement Date:: 08/2013 [employer] Smoking Status: Former smoker - Past Family History Brother(s) Family Medical History: Cancer Additional Family Medical History / Comment(s): Patient has 2 brothers that are both alive. One has history of prostate cancer. Father Family Medical History: Renal Disease, Respiratory Disorder Additional Family Medical History / Comment(s): Father at age 75 from renal failure. Mother Family Medical History: Coronary Artery Disease (CAD), Dementia Additional Family Medical History / Comment(s): Mother dies at age 94 from Alzheimer dementia. Sister(s) Family Medical History: No Reported History Additional Family Medical History / Comment(s): Patient has one sister with osteoarthritis. Medications and Allergies Home Medications Medication Instructions Recorded Confirmed Type Albuterol Sulfate [Proair Hfa] 2 puff INHALATION RT-TID PRN 10/27/13 04/03/18 History Carvedilol [Coreg*] 12.5 mg PO BID 10/27/13 04/03/18 History Dicyclomine [Bentyl] 20 mg PO AC-TID 10/27/13 04/03/18 History Lovastatin [Mevacor] 40 mg PO HS 10/27/13 04/03/18 History Ergocalciferol [Vitamin D2 50,000 unit PO Q14D 12/23/14 04/03/18 History (DRISDOL)] Fludrocortisone [Florinef] 0.1 mg PO BID 02/27/15 04/03/18 History oxyCODONE-APAP 7.5-325MG [Percocet 1 tab PO TID PRN 03/03/15 04/03/18 History 7.5-325 mg] Citalopram Hydrobromide 20 mg PO BID 03/27/16 04/03/18 History [Citalopram HBr] Finasteride [Proscar] 5 mg PO QAM 03/27/16 04/03/18 History Levothyroxine Sodium [Synthroid] 25 mcg PO DAILY 03/27/16 04/03/18 History Lisinopril [Zestril] 2.5 mg PO DAILY #30 tab 04/01/16 04/03/18 Rx Spironolactone [Aldactone] 25 mg PO DAILY #30 tab 04/01/16 04/03/18 Rx Furosemide [Lasix] 60 mg PO BID@0800,1200 02/24/18 04/03/18 History Hydrocortisone [Cortef] 20 mg PO BID 02/24/18 04/03/18 History Midodrine HCl [ProAmatine] 20 mg PO BID 02/24/18 04/03/18 History Potassium Chloride [K-Tab ER] 20 meq PO DAILY 02/24/18 04/03/18 History Warfarin [Coumadin] 2.5 mg PO HS 02/24/18 04/03/18 History Butalb/APAP/Caff 50-325-40Mg 1 tab PO Q8H PRN 04/03/18 04/03/18 History [Fioricet 50-325-40] Digoxin 250 mcg PO HS 04/03/18 04/03/18 History Slow Mag 143 mg PO BID 04/03/18 04/03/18 History Tamsulosin [Flomax] 0.4 mg PO HS 04/03/18 04/03/18 History clonazePAM 0.5 mg PO HS 04/03/18 04/03/18 History Allergies Allergy/AdvReac Type Severity Reaction Status Date / Time Iodinated Contrast- Oral and Allergy Rash/Hives Verified 04/03/18 09:14 IV Dye [Iodinated Contrast Media - IV Dye] nitroglycerin Allergy passed out Verified 04/03/18 09:14 adhesive AdvReac SKIN TURNS Verified 04/03/18 09:14 RED piperacillin sodium AdvReac Confusion Verified 04/03/18 09:14 [From Zosyn] tazobactam sodium AdvReac Confusion Verified 04/03/18 09:14 [From Zosyn] Physical Exam Vitals: Vital Signs Temp Pulse Pulse Resp BP BP Pulse Ox 04/03/18 10:55 99 F 89 20 132/71 90 L 04/03/18 07:00 92 24 148/93 95 04/03/18 06:45 84 17 154/88 100 04/03/18 06:30 80 20 135/85 99 04/03/18 06:15 84 19 152/90 97 04/03/18 06:00 77 15 152/90 100 04/03/18 05:45 74 16 154/77 96 04/03/18 05:30 87 18 141/87 95 04/03/18 05:17 101.8 F H 90 20 136/84 95 04/03/18 04:47 92 20 147/94 95 Intake and Output 04/02/18 04/03/18 04/03/18 22:59 06:59 14:59 Other: Weight 77.111 kg - Constitutional General appearance: disheveled, thin - EENT Eyes: no PERRLA, no ptosis ENT: normal oropharynx Ears: bilateral: normal - Neck Carotids: bilateral: upstroke delayed - Respiratory Respiratory: bilateral: diminished, rhonchi, negative: dullness, rales, wheezing , prolonged expiration - Cardiovascular Rhythm: regular Heart sounds: normal: S1, S2 Abnormal Heart Sounds: systolic murmur, S3 Gallop (ICD in the left upper precordium.) - Gastrointestinal General gastrointestinal: normal bowel sounds, soft, tenderness, no umbilical hernia, no ventral hernia - Integumentary Integumentary: normal, normal turgor - Psychiatric Psychiatric: no A&O x's 3, no appropriate affect, no intact judgment & insight ( patient is stuporous and moves all his extremities however he does not follow any commands.) Results CBC & Chem 7: 04/07/18 05:52 04/06/18 03:13 Labs: Abnormal Lab Results - Last 24 Hours (Table) 04/03/18 04/03/18 04/03/18 Range/Units 04:55 04:55 04:55 PT (9.0-12.0) sec INR (<1.2) Carbon Dioxide 32 H (22-30) mmol/L BUN 22 H (9-20) mg/dL Glucose 103 H (74-99) mg/dL Plasma Lactic Acid Jun 2.4 H* (0.7-2.0) mmol/L Phosphorus 1.4 L (2.5-4.5) mg/dL Total Creatine Kinase 30 L (55-170) U/L Troponin I 0.175 H* (0.000-0.034) ng/mL Albumin 3.4 L (3.5-5.0) g/dL 04/03/18 04/03/18 Range/Units 04:55 08:16 PT 13.8 H (9.0-12.0) sec INR 1.5 H (<1.2) Carbon Dioxide (22-30) mmol/L BUN (9-20) mg/dL Glucose (74-99) mg/dL Plasma Lactic Acid Jun 2.3 H* (0.7-2.0) mmol/L Phosphorus (2.5-4.5) mg/dL Total Creatine Kinase (55-170) U/L Troponin I (0.000-0.034) ng/mL Albumin (3.5-5.0) g/dL Thrombosis Risk Factor Assmnt - DVT/VTE Prophylaxis DVT/VTE Prophylaxis: Mechanical Prophylaxis ordered Assessment and Plan Assessment: Assessment and plan: 1. Severe metabolic encephalopathy with acute febrile illness with possible viral meningitis doubt bacterial meningitis at this time as the patient does not look quite ill, patient will need to have a lumbar puncture for evaluation and he would need to have his fluid sent for protein glucose 70 count and differential along with encephalitis panel and was not a virus, IV fluid resuscitation, empiric broad spectrum antibiotic, ID consultation, as well as neurology consultation. Hold Coumadin for now recheck PT and INR tomorrow morning ask for anesthesia for lumbar puncture under sedation. Patient will need to be admitted to intensive care unit. Consult Dr. Christopher. 2. Elevated troponin without evidence of acute ischemia. We will hold oral medication this point in time as the patient is not following commands commands right now. Cardiology consultation. 3. Severe nonischemic cardiomyopathy . Patient with severe encephalopathy is not safe to use any oral medication at this point in time subsequently will be discontinued. 4. Hypertension and hypertensive cardiovascular disease. Hold oral medications. 5. Hyperlipidemia. Hold Lipitor. 6. Chronic persistent atrial fibrillation. Hold Coumadin repeat INR tomorrow morning. 7. Hypophosphatemia. We will replace. 8. Gastroesophageal reflux disease and hiatal hernia status post Jose fundoplication. We will continue with Protonix 40 mg IV push every 24 hours. 9. Start the patient on stress dose of steroid in the form of hydrocortisone 100 mg IV push every 8 hours and hold Florinef for now as the patient is not awake. 10. enlarge prostate. Patient will be taken off Flomax and Proscar as the patient is not awake. 11. History of pulmonary sarcoidosis stable at this point in time. 12. DVT prophylaxis. Continue Lovenox 40 mg subcutaneously every 24 hours. 13. GI prophylaxis. Continue with PPI. 14. Patient is full code. 15. Admit to inpatient. Estimate length of stay 2 midnights.
[2018-04-03] MEDS ORDERED: VANCOMYCIN IV PER PHARMACY 1 EACH MISC MISCELLANE PRN (13:23)
[2018-04-03] MEDS ORDERED: ACYCLOVIR SODIUM 800 MG in SODIUM CHLORIDE 0.9% 250 ML IV ONE (13:25)
[2018-04-03 14:18] LABS: Glucose,Whole Blood 139 mg/dL (75-99)
[2018-04-03] MEDS ORDERED: metroNIDAZOLE-NS PMX 500 MG in SALINE 1 100ML.BAG IVPB SCH (16:00)
[2018-04-03] MEDS: ENOXAPARIN 40 MG/0.4 ML SYRINGE SQ SCH (16:08)
[2018-04-03] MEDS: PANTOPRAZOLE 40 MG/10 ML VIAL IVP SCH (16:08)
[2018-04-03] MEDS ORDERED: HALOPERIDOL LACTATE 5 MG/ML 1 ML VIAL IVP ONE (16:47)
--- NOTE | 2018-04-03 17:06 | P.CNPUL ---
History of Present Illness Consult date: 04/03/18 Chief complaint: Altered mental status History of present illness: A 72-year-old male patient comes in to the hospital because of an altered mental status. The patient has garbled speech, restless, thrashing in bed, not following any commands, cannot volunteer any history nor he can hold a conversation. Apparently, he does have some episodes of confusion according to the and some difficulties with long-term memory, and he woke up this morning complaining of some headache and subsequently asked for his migraine medication and after being given his medication he became more confused and EMS was called to the scene and the patient was brought into the emergency department. No fever. No neck stiffness. CAT scan of the brain is negative. The patient had a single episode of temperature of 101.8. UA was negative. Chest x-ray was negative for pneumonia. No nausea. No vomiting. No emesis. No flank pain. No skin rashes. No reported aspiration. He is moving all 4 extremities without any limitation. Currently he is in 4. restraints as the patient cannot and would not stay still in bed and he is confused and unable to be oriented. His white cell count is at 8.8. Hemoglobin is 13.9. He has multiple medical problems and comorbidities including history of chronic atrial fibrillation, severe cardiomyopathy and the patient has an AICD in place, coronary artery disease, hypertension, hyperlipidemia and the patient also has excessive anxiety and episodes of panic attacks as reported by the spouse. The patient has no travel history. No previous history of seizure activity. No head trauma. He has history of migraine. He has been seen by neurology, Dr. Conway and he has received occipital shots for chronic headache. No changes medication. He has a DNR/DNI CODE STATUS. The patient was seen by Dr. Loza in the ED and recommendations were made to have a lumbar puncture although this is not possible as the patient was taking Coumadin and has an INR of 1.5 and his same time is not cooperative to undergo this type of procedure. He was given vancomycin and Rocephin as an empiric antibiotic coverage. Acyclovir was also ordered.. Review of Systems ROS unobtainable: due to mental status Past Medical History Past Medical History: Atrial Fibrillation, Heart Failure, CVA/TIA, GERD/Reflux, Hearing Disorder / Deafness, Hyperlipidemia, Hypertension, Memory Impairment, Myocardial Infarction ([place]), Osteoarthritis (OA), Prostate Disorder, Respiratory Disorder Additional Past Medical History / Comment(s): Coronary artery disease, congestion heart failure, previous AICD placement, chronic atrial fibrillation, chronic antibiotic ventilation with warfarin, hypertension, hyperlipidemia, long -term memory impairment, osteoarthritis, BPH, history of migraines and cluster headaches, previous history of myocardial infarction 2, questionable history of sarcoidosis, multiple lipomas, nephrolithiasis, difficulty in swallowing, previous history of Swapnil fundoplication 2014 with a complicated postoperative course, previous history of perforated bowel requiring colectomy in 1995 with a complicated postoperative course, previous history of CVA, impaired vision, impaired hearing Last Myocardial Infarction Date:: unknown History of Any Multi-Drug Resistant Organisms: MRSA Date of last positivie culture/infection: 08/15/09 MDRO Source:: LUNGS Past Surgical History: AICD, Bowel Resection, Heart Catheterization With Stent, Hernia Repair, Orthopedic Surgery, Pacemaker, Prostate Surgery, Tonsillectomy Additional Past Surgical History / Comment(s): Laparoscopic Swapnil fundoplication in 2014, laparoscopic lysis of adhesions, AICD placed in 2008 and subsequent replacement 2013, previous history of bowel resection with diverting colostomy and subsequent reversal for about perforation 1995, history of stomach surgery for a perforated peptic ulcer, history of blepharoplasty bilaterally 2007, surgical repair of a deviated septum 2001, TURP in 2003, vasectomy 1975, right shoulder rotator cuff surgery in 2012, resection of numerous lipomas involving the left leg and 2014, EGD, hiatal hernia surgery in [facility] back in the [facility]s, bilateral inguinal hernia repair 3, cardiac catheterization and insertion of coronary stent in 2000 at 2007, lithotripsy 1987 and 2001, prostate surgery Past Anesthesia/Blood Transfusion Reactions: Postoperative Nausea & Vomiting ( PONV) Additional Past Anesthesia/Blood Transfusion Reaction / Comment(s): Pt has never recieved blood Date of Last Stent Placement:: 2007 Type of Cardiac Device: AICD Device Placement Date:: 08/2013 [employer] Smoking Status: Former smoker - Past Family History Brother(s) Family Medical History: Cancer Father Family Medical History: Renal Disease, Respiratory Disorder Additional Family Medical History / Comment(s): Father had some kind of problem with his lungs. Mother Family Medical History: Coronary Artery Disease (CAD), Dementia Sister(s) Family Medical History: No Reported History Medications and Allergies Home Medications Medication Instructions Recorded Confirmed Type Albuterol Sulfate [Proair Hfa] 2 puff INHALATION RT-TID PRN 10/27/13 04/03/18 History Carvedilol [Coreg*] 12.5 mg PO BID 10/27/13 04/03/18 History Dicyclomine [Bentyl] 20 mg PO AC-TID 10/27/13 04/03/18 History Lovastatin [Mevacor] 40 mg PO HS 10/27/13 04/03/18 History Ergocalciferol [Vitamin D2 50,000 unit PO Q14D 12/23/14 04/03/18 History (DRISDOL)] Fludrocortisone [Florinef] 0.1 mg PO BID 02/27/15 04/03/18 History oxyCODONE-APAP 7.5-325MG [Percocet 1 tab PO TID PRN 03/03/15 04/03/18 History 7.5-325 mg] Citalopram Hydrobromide 20 mg PO BID 03/27/16 04/03/18 History [Citalopram HBr] Finasteride [Proscar] 5 mg PO QAM 03/27/16 04/03/18 History Levothyroxine Sodium [Synthroid] 25 mcg PO DAILY 03/27/16 04/03/18 History Lisinopril [Zestril] 2.5 mg PO DAILY #30 tab 04/01/16 04/03/18 Rx Spironolactone [Aldactone] 25 mg PO DAILY #30 tab 04/01/16 04/03/18 Rx Furosemide [Lasix] 60 mg PO BID@0800,1200 02/24/18 04/03/18 History Hydrocortisone [Cortef] 20 mg PO BID 02/24/18 04/03/18 History Midodrine HCl [ProAmatine] 20 mg PO BID 02/24/18 04/03/18 History Potassium Chloride [K-Tab ER] 20 meq PO DAILY 02/24/18 04/03/18 History Warfarin [Coumadin] 2.5 mg PO HS 02/24/18 04/03/18 History Butalb/APAP/Caff 50-325-40Mg 1 tab PO Q8H PRN 04/03/18 04/03/18 History [Fioricet 50-325-40] Digoxin 250 mcg PO HS 04/03/18 04/03/18 History Slow Mag 143 mg PO BID 04/03/18 04/03/18 History Tamsulosin [Flomax] 0.4 mg PO HS 04/03/18 04/03/18 History clonazePAM 0.5 mg PO HS 04/03/18 04/03/18 History Allergies Allergy/AdvReac Type Severity Reaction Status Date / Time Iodinated Contrast- Oral and Allergy Rash/Hives Verified 04/03/18 09:14 IV Dye [Iodinated Contrast Media - IV Dye] nitroglycerin Allergy passed out Verified 04/03/18 09:14 adhesive AdvReac SKIN TURNS Verified 04/03/18 09:14 RED piperacillin sodium AdvReac Confusion Verified 04/03/18 09:14 [From Zosyn] tazobactam sodium AdvReac Confusion Verified 04/03/18 09:14 [From Zosyn] Physical Exam Vitals: Vital Signs Temp Pulse Pulse Resp BP BP Pulse Ox 04/03/18 13:21 85 20 139/83 04/03/18 10:55 99 F 89 20 132/71 90 L 04/03/18 07:00 92 24 148/93 95 04/03/18 06:45 84 17 154/88 100 04/03/18 06:30 80 20 135/85 99 04/03/18 06:15 84 19 152/90 97 04/03/18 06:00 77 15 152/90 100 04/03/18 05:45 74 16 154/77 96 04/03/18 05:30 87 18 141/87 95 04/03/18 05:17 101.8 F H 90 20 136/84 95 04/03/18 04:47 92 20 147/94 95 Intake and Output 04/03/18 04/03/18 04/03/18 06:59 14:59 22:59 Other: Weight 77.111 kg 77.111 kg - Constitutional General appearance: Thin and frail, restless in bed, disheveled in bed - EENT Eyes: no PERRLA, no ptosis ENT: normal oropharynx Ears: bilateral: normal - Neck Carotids: bilateral: upstroke delayed - Respiratory Respiratory: bilateral: diminished, rhonchi, negative: dullness, rales, wheezing , prolonged expiration - Cardiovascular Rhythm: regular Heart sounds: Irregular S1-S2 consistent with atrial fibrillation Abnormal Heart Sounds: systolic murmur, S3 Gallop (ICD in the left upper precordium.) - Gastrointestinal General gastrointestinal: normal bowel sounds, soft, tenderness, no umbilical hernia, no ventral hernia - Integumentary Integumentary: normal, normal turgor - Psychiatric Psychiatric: Unable to obtain as the patient is unable to give appropriate information regarding mental health Neurologically, he is moving all 4 extremities, no focal neurological deficits, pupils are reactive and reactive to light, no Babinski, no clonus, he is confused, speech is garbled, cannot hold a conversation, occasionally out there is help, seems quite apprehensive and anxious. Results - Laboratory Findings CBC and BMP: 04/03/18 04:55 04/03/18 04:55 PT/INR, D-dimer PT 13.8 sec (9.0-12.0) H 04/03/18 04:55 INR 1.5 (<1.2) H 04/03/18 04:55 Abnormal lab findings: Abnormal Labs 04/03/18 04/03/18 04/03/18 04:55 04:55 04:55 PT INR Carbon Dioxide 32 H BUN 22 H Glucose 103 H POC Glucose (mg/dL) Plasma Lactic Acid Jun 2.4 H* Phosphorus 1.4 L Total Creatine Kinase 30 L Troponin I 0.175 H* Albumin 3.4 L 04/03/18 04/03/18 04/03/18 04:55 08:16 14:06 PT 13.8 H INR 1.5 H Carbon Dioxide BUN Glucose POC Glucose (mg/dL) 139 H Plasma Lactic Acid Jun 2.3 H* Phosphorus Total Creatine Kinase Troponin I Albumin - Diagnostic Findings Chest x-ray: image reviewed Assessment and Plan Plan: Assessment 1 acute encephalopathy, exact etiology is not clear. Rule out metabolic flex drug-induced encephalopathy. Encephalitis is not completely excluded and possibilities to be given for a viral encephalitis. He did have a single bout of fever at time of admission and his been afebrile since. He is hemodynamically stable. CAT scan of the brain is negative. No septic focus in this patient. 2 single bout of fever, currently afebrile and hemodynamically stable 3 coronary artery disease with previous GA with limited troponin leak 4 CHF with ischemic cardiomyopathy and ejection fraction being 4 with systolic heart failure and the patient is an AICD in place 5 history of migraines 6 chronic atrial fibrillation maintained on long-term ventilation with warfarin the patient's PT/INR subtherapeutic 7. Cardiac catheterization and stenting for coronary artery disease 8 long-term memory impairment, possibly underlying dementia 9 questionable history of pulmonary sarcoidosis that has been stable and no further information is available in that regard 10 hypertension 11 hyperlipidemia 12 on it hypotension maintain a combination of Cortef and an midodrin 14 and Florinef 13 BPH on Proscar Plan Check blood cultures, check urine culture, cover the patient with empiric antibiotics with a combination of Rocephin and vancomycin and acyclovir. Monitor fever pattern. Haldol for agitation. We'll give him 2 mg IV push right now and monitor his clinical response and decide on the dosing and frequency accordingly. Meanwhile, avoid benzodiazepines, hold warfarin and consider lumbar puncture with the next 34 hours if his condition remains unchanged. Repeat a follow-up CAT scan of the next 24 hours. Stress dose hydrocortisone as the patient has been chronically on Cortef. The consultation. We'll continue to follow.
[2018-04-03] MEDS: HYDROCORTISONE SUCCINATE 100 MG/2 ML VIAL IV SCH (17:28)
[2018-04-03] MEDS: VANCOMYCIN 1,500 MG in SODIUM CHLORIDE 0.9% 250 ML IVPB SCH (17:29)
[2018-04-03] MEDS ORDERED: MIDODRINE 5 MG TAB PO SCH (17:30)
--- NOTE | 2018-04-03 17:40 | CONS ---
CONSULTATION DATE OF SERVICE: 04/03/2018 REASON FOR CONSULTATION: Fever. HISTORY OF PRESENT ILLNESS: The patient is a 72 -year-old male with multiple comorbidities who was brought into the ER at [facility] early this morning with the chief complaints of severe headache. Apparently the patient woke up around 3 in the morning complaining of severe headache with confusion and encephalopathy. There is no clear history of any nausea, vomiting or any abdominal pain or diarrhea being reported. EMS was called, who brought the patient to the ER around 4:43 this morning, where the patient was evaluated by the ER physician. On arrival in the ER, the patient did have a fever of 101.8 degrees Fahrenheit. The patient was slightly tachycardic with a heart rate into 90s. His blood pressure was stable. The patient did have a normal white count of 8.8. His urine was negative. Influenza serology was negative. The patient did have elevated lactic acid of 2.3; repeat is 1.9 and 1.8. The patient also had a chest x-ray completed which was negative for any acute infiltrate. CT of the brain did show cerebral atrophy. No acute intracranial abnormality was seen. He also had a CT of abdomen and pelvis done without any contrast, which is showing massive cardiomegaly, bilateral pleural effusion, small in size, small bowel ileus, correlate for enteritis, and mild constipation. However, in talking to his , the patient was not complaining of any abdominal pain. He did not have any nausea, vomiting or any diarrhea. No history of any urinary symptoms. Patient did not have any recent travel or sick contact. Patient was started on Rocephin and Infectious Disease was consulted for further recommendations regarding antibiotic therapy. Most of this information has been obtained from thorough review of the chart and talking to his , who was present at the bedside, as the patient is currently not in a position to answer any questions, though he was noted to be much calmer and not agitated. REVIEW OF SYSTEMS: Review of systems could not be reliably obtained. Positive points have been mentioned in the HPI. PAST MEDICAL HISTORY: Significant for: 1. Atrial fibrillation. 2. Heart failure. 3. Gastroesophageal reflux disease. 4. Hyperlipidemia. 5. Hypertension. 6. Memory impairment. 7. Myocardial infarction. 8. Osteoarthritis. 9. History of enlarged prostate. 10.History of kidney stone. 11.Previous history of MRSA infection, source being lungs. PAST SURGICAL HISTORY: 1. AICD placement. 2. Bowel resection. 3. PTCA with stent. 4. Hernia repair. 5. Pacemaker placement. 6. Prostate surgery. 7. Tonsillectomy. 8. Swapnil fundoplication. SOCIAL HISTORY: The patient did have a previous history of smoking. No drinking or drug use. FAMILY HISTORY: Mother with history of cancer. Mother with history of coronary disease and dementia. ALLERGIES: 1. IODINATED CONTRAST DYE, ORAL AND IV. 2. ZOSYN. 3. NITROGLYCERIN. MEDICATIONS: The patient is currently on: 1. Rocephin 2 grams daily. 2. Lovenox. 3. Solu-Cortef. 4. Protonix. PHYSICAL EXAMINATION: Blood pressure 139/83, pulse of 85, temperature 99. T-max is 101.8. He is 90% on room air. General description is an elderly male lying in bed in no distress. No tachypnea or accessory muscle of respiration use. HEENT examination shows no pallor or scleral icterus. Oral mucous membrane is dry. NECK: Trachea is central. No thyromegaly. LUNGS: Unlabored breathing with decreased intensity of breath sounds but no wheeze or crackle. HEART: S1, S2. Regular rate and rhythm. ABDOMEN: Soft. No tenderness. No guarding or rigidity. EXTREMITIES: No edema of the feet. SKIN EXAMINATION: No rash or mass palpable. Neurologically the patient is currently unresponsive, lethargic. Orientation could not be determined. No significant neck rigidity. LABS: Hemoglobin is 13.9, white count 8.8. BUN of 22, creatinine 1.20. Electrolytes have been normal. Lactic acid elevated. Liver enzymes are normal. Troponin is slightly elevated at 0.175. Ammonia was 18. Influenza serology is negative. Urine is negative. Chest x-ray was negative for any pneumonia. CT of abdomen and pelvis with a question of possible ileus but no evidence of any inflammation. DIAGNOSTIC IMPRESSION AND PLAN: 1. Patient admitted to hospital with a fever of 101.8 degrees Fahrenheit. The patient did have severe headache and encephalopathy, highly suspicious for viral encephalitis or viral meningitis less likely but not entirely excluded, as the patient currently with no other clinical focus of infection for this fever of 101.8 degrees Fahrenheit. Patient's chest x-ray reported to be negative and no clinical findings on auscultation of the lungs. The patient also has a soft belly examination and CT of abdomen and pelvis did not show any evidence of any inflammation. His urine has been negative. No evidence of any cellulitis or joint swelling has been noticed. 2. The patient will need lumbar puncture with mildly elevated INR. PLAN: 1. We will recommend obtaining a lumbar puncture to check CSF for protein, glucose, cell count differential, HSV, DNA by PCR and culture. 2. We will empirically start the patient on acyclovir 10 mg/kg q.8 in addition to the vancomycin, Pharmacy to dose, and Rocephin 2 grams q.12. 3. We will follow up on his clinical condition and culture to further adjust medication if needed. His was present at the bedside. All questions and concerns were answered. Overall prognosis remains guarded. ROXANNEL / DANUTAN: [id number] /
--- NOTE | 2018-04-03 18:36 | P.CNNES ---
History of Present Illness Consult date: 04/03/18 Requesting physician: Merritt Patel Reason for Consult: Metabolic encephalopathy History of Present Illness: Patient is a 72-year-old male who is being evaluated by the neurology service on 04/03/2018 per the request of Dr. Patel for metabolic encephalopathy. Patient is known to our service and is seen in the outpatient setting in our office. Patient woke up in the middle the night and noted that patient seemed to be confused. called EMS and patient was brought to [facility] for further evaluation. Patient has a history of cervicalgia and migraine headaches for which we see him in the office. He also has history of CAD with AICD. He has a history of atrial fibrillation, hypertension, hyperlipidemia, and osteoarthritis. Vital signs on admission showed temp of 101.8, respiratory rate of 20, pulse 92, blood pressure 147/94, and oxygen saturation of 95% on room air. Labs on admission included INR of 1.5 , BUN 22, glucose 103, plasma lactic acid 2.4, and elevated troponin. UA was negative for infection. Patient had a normal WBC count. Influenza serology was negative. CT of the brain showed cerebral atrophy but no acute intracranial abnormality. Chest x-ray showed cardiomegaly and new pulmonary vascular congestion as compared to last exam. Infectious disease was consulted due to elevated temperature on admission. He was started on Rocephin, vancomycin, and acyclovir. A lumbar puncture is recommended once his INR comes down. At the time of my evaluation, patient is extremely restless and is in restraints. Patient has a sitter at the bedside. Review of Systems REVIEW OF SYSTEMS: Otherwise unremarkable and noncontributory. Past Medical History Past Medical History: Atrial Fibrillation, Heart Failure, CVA/TIA, GERD/Reflux, Hearing Disorder / Deafness, Hyperlipidemia, Hypertension, Memory Impairment, Myocardial Infarction ([place]), Osteoarthritis (OA), Prostate Disorder, Respiratory Disorder Additional Past Medical History / Comment(s): Coronary artery disease, congestion heart failure, previous AICD placement, chronic atrial fibrillation, chronic antibiotic ventilation with warfarin, hypertension, hyperlipidemia, long -term memory impairment, osteoarthritis, BPH, history of migraines and cluster headaches, previous history of myocardial infarction 2, questionable history of sarcoidosis, multiple lipomas, nephrolithiasis, difficulty in swallowing, previous history of Swapnil fundoplication 2014 with a complicated postoperative course, previous history of perforated bowel requiring colectomy in 1995 with a complicated postoperative course, previous history of CVA, impaired vision, impaired hearing Last Myocardial Infarction Date:: unknown History of Any Multi-Drug Resistant Organisms: MRSA Date of last positivie culture/infection: 08/15/09 MDRO Source:: LUNGS Past Surgical History: AICD, Bowel Resection, Heart Catheterization With Stent, Hernia Repair, Orthopedic Surgery, Pacemaker, Prostate Surgery, Tonsillectomy Additional Past Surgical History / Comment(s): Laparoscopic Swapnil fundoplication in 2014, laparoscopic lysis of adhesions, AICD placed in 2008 and subsequent replacement 2013, previous history of bowel resection with diverting colostomy and subsequent reversal for about perforation 1995, history of stomach surgery for a perforated peptic ulcer, history of blepharoplasty bilaterally 2007, surgical repair of a deviated septum 2001, TURP in 2003, vasectomy 1975, right shoulder rotator cuff surgery in 2012, resection of numerous lipomas involving the left leg and 2014, EGD, hiatal hernia surgery in [facility] back in the 50s, bilateral inguinal hernia repair , cardiac catheterization and insertion of coronary stent in 2000 at 2007, lithotripsy 1987 and 2001, prostate surgery Past Anesthesia/Blood Transfusion Reactions: Postoperative Nausea & Vomiting ( PONV) Additional Past Anesthesia/Blood Transfusion Reaction / Comment(s): Pt has never recieved blood Date of Last Stent Placement:: 2007 Type of Cardiac Device: AICD Device Placement Date:: 08/2013 Sociercisetronic Smoking Status: Former smoker - Past Family History Brother(s) Family Medical History: Cancer Father Family Medical History: Renal Disease, Respiratory Disorder Additional Family Medical History / Comment(s): Father had some kind of problem with his lungs. Mother Family Medical History: Coronary Artery Disease (CAD), Dementia Sister(s) Family Medical History: No Reported History Medications and Allergies Home Medications Medication Instructions Recorded Confirmed Type Albuterol Sulfate [Proair Hfa] 2 puff INHALATION RT-TID PRN 10/27/13 04/03/18 History Carvedilol [Coreg*] 12.5 mg PO BID 10/27/13 04/03/18 History Dicyclomine [Bentyl] 20 mg PO AC-TID 10/27/13 04/03/18 History Lovastatin [Mevacor] 40 mg PO HS 10/27/13 04/03/18 History Ergocalciferol [Vitamin D2 50,000 unit PO Q14D 12/23/14 04/03/18 History (DRISDOL)] Fludrocortisone [Florinef] 0.1 mg PO BID 02/27/15 04/03/18 History oxyCODONE-APAP 7.5-325MG [Percocet 1 tab PO TID PRN 03/03/15 04/03/18 History 7.5-325 mg] Citalopram Hydrobromide 20 mg PO BID 03/27/16 04/03/18 History [Citalopram HBr] Finasteride [Proscar] 5 mg PO QAM 03/27/16 04/03/18 History Levothyroxine Sodium [Synthroid] 25 mcg PO DAILY 03/27/16 04/03/18 History Lisinopril [Zestril] 2.5 mg PO DAILY #30 tab 04/01/16 04/03/18 Rx Spironolactone [Aldactone] 25 mg PO DAILY #30 tab 04/01/16 04/03/18 Rx Furosemide [Lasix] 60 mg PO BID@0800,1200 02/24/18 04/03/18 History Hydrocortisone [Cortef] 20 mg PO BID 02/24/18 04/03/18 History Midodrine HCl [ProAmatine] 20 mg PO BID 02/24/18 04/03/18 History Potassium Chloride [K-Tab ER] 20 meq PO DAILY 02/24/18 04/03/18 History Warfarin [Coumadin] 2.5 mg PO HS 02/24/18 04/03/18 History Butalb/APAP/Caff 50-325-40Mg 1 tab PO Q8H PRN 04/03/18 04/03/18 History [Fioricet 50-325-40] Digoxin 250 mcg PO HS 04/03/18 04/03/18 History Slow Mag 143 mg PO BID 04/03/18 04/03/18 History Tamsulosin [Flomax] 0.4 mg PO HS 04/03/18 04/03/18 History clonazePAM 0.5 mg PO HS 04/03/18 04/03/18 History Allergies Allergy/AdvReac Type Severity Reaction Status Date / Time Iodinated Contrast- Oral and Allergy Rash/Hives Verified 11/16/18 09:14 IV Dye [Iodinated Contrast Media - IV Dye] nitroglycerin Allergy passed out Verified 04/03/18 09:14 adhesive AdvReac SKIN TURNS Verified 04/03/18 09:14 RED piperacillin sodium AdvReac Confusion Verified 04/03/18 09:14 [From Zosyn] tazobactam sodium AdvReac Confusion Verified 04/03/18 09:14 [From Zosyn] Physical Examination - Vital Signs Vital Signs: Vital Signs Temp Pulse Pulse Resp BP BP Pulse Ox 04/03/18 18:00 102 H 18 164/98 95 04/03/18 17:36 99 F 93 16 160/98 04/03/18 17:00 104 H 22 100/58 96 04/03/18 16:00 99.7 F H 90 18 134/92 95 04/03/18 15:00 88 23 135/77 96 04/03/18 14:00 82 19 126/75 95 04/03/18 13:21 85 20 139/83 04/03/18 11:18 79 04/03/18 10:55 99 F 89 20 132/71 90 L 04/03/18 08:00 124/110 04/03/18 07:00 107 H 27 H 154/88 95 04/03/18 06:45 84 17 154/88 100 04/03/18 06:30 80 20 135/85 99 04/03/18 06:15 84 19 152/90 97 04/03/18 06:00 128 H 13 144/95 100 04/03/18 05:45 74 16 154/77 96 04/03/18 05:30 87 18 141/87 95 04/03/18 05:17 101.8 F H 90 20 136/84 95 04/03/18 05:00 89 8 L 153/99 89 L 04/03/18 04:47 92 20 147/94 95 Intake and Output 04/03/18 04/03/18 04/03/18 06:59 14:59 22:59 Intake Total 325 Output Total 500 Balance -175 Intake: IV 325 Sodium Chloride 0.9% 1, 200 000 ml @ 150 mls/hr IV . Q6H40M RADHA Rx#:[id number] Vancomycin 1,500 mg In 125 Sodium Chloride 0.9% 250 ml @ 125 mls/hr IVPB Q16H RADHA Rx#:[id number] Output: Urine 500 Other: Weight 77.111 kg 77.111 kg PHYSICAL EXAM: GENERAL APPEARANCE: Patient is a well-developed, male who appears to be in no acute distress. HEENT: Normocephalic, atraumatic, no facial asymmetry is seen. Neck is supple with no masses felt. CARDIOVASCULAR: Regular rate and rhythm. ABDOMEN: Nontender, nondistended. EXTREMITIES: Show no edema or clubbing. NEUROLOGICAL EXAM: A meaningful neurological exam could not be performed due to patient's inability to cooperate. No obvious lateralizing weakness is seen. No obvious facial asymmetry is noted. Patient appears to be delirious. No tremors or seizure-like activity is noted. Results - Laboratory Findings CBC and BMP: 04/03/18 04:55 04/03/18 04:55 Abnormal Lab Findings: Abnormal Labs 04/03/18 04/03/18 04/03/18 04:55 04:55 04:55 PT INR Carbon Dioxide 32 H BUN 22 H Glucose 103 H POC Glucose (mg/dL) Plasma Lactic Acid Jun 2.4 H* Phosphorus 1.4 L Total Creatine Kinase 30 L Troponin I 0.175 H* Albumin 3.4 L 04/03/18 04/03/18 04/03/18 04:55 08:16 14:06 PT 13.8 H INR 1.5 H Carbon Dioxide BUN Glucose POC Glucose (mg/dL) 139 H Plasma Lactic Acid Jun 2.3 H* Phosphorus Total Creatine Kinase Troponin I Albumin Assessment and Plan (1) Altered mental status Current Visit: Yes Status: Acute Code(s): R41.82 - ALTERED MENTAL STATUS, UNSPECIFIED SNOMED Code(s): 137579155 (2) Delirium due to general medical condition Current Visit: Yes Status: Acute Code(s): F05 - DELIRIUM DUE TO KNOWN PHYSIOLOGICAL CONDITION SNOMED Code(s): 5926196 (3) Fever Current Visit: Yes Status: Acute Code(s): R50.9 - FEVER, UNSPECIFIED SNOMED Code(s): 559651678 (4) Acute headache Current Visit: No Status: Acute Code(s): R51 - HEADACHE SNOMED Code(s): 838231378 (5) Elevated troponin Current Visit: No Status: Acute Code(s): R79.89 - OTHER SPECIFIED ABNORMAL FINDINGS OF BLOOD CHEMISTRY SNOMED Code(s): 939200165 Plan: Recommendation: Patient has ongoing altered mental status which seems to be acute. Patient was appropriate, pleasant, and conversant in the office about a week ago. Patient will likely need a lumbar puncture once the INR comes down. Infectious disease is following. There is no clinical focus of infection found. I will order an MRI of the brain to evaluate for possible contributing etiology. I will order an EEG. Continue current medical workup per pulmonology and infectious disease. Continue neurological checks. I will continue to follow with you. Further recommendations following testing. Thank you for allowing me to participate in the care of your patient. Feel free to call with any questions or concerns. I performed an examination of the patient and discussed the management with the TAX ACCOUNTING ASSISTANT. I have reviewed the TAX ACCOUNTING ASSISTANT notes and agree with the findings and plan of care.
[2018-04-03] MEDS ORDERED: clonazePAM 0.5 MG TAB PO SCH (21:00)
[2018-04-03] MEDS ORDERED: WARFARIN 2.5 MG TAB PO SCH (21:00)
[2018-04-03] MEDS ORDERED: TAMSULOSIN 0.4 MG CAP.ER.24H PO SCH (21:00)
[2018-04-03] MEDS ORDERED: ATORVASTATIN 10 MG TAB PO SCH (21:00)
[2018-04-03] MEDS ORDERED: DIGOXIN 250 MCG TAB PO SCH (21:00)
[2018-04-03] MEDS ORDERED: FLUDROCORTISONE 0.1 MG TAB PO SCH (21:00)
[2018-04-03] MEDS ORDERED: MAGNESIUM OXIDE 400 MG TAB PO SCH (21:00)
[2018-04-03] MEDS: cefTRIAXone 2,000 MG in SODIUM CHLORIDE 0.9% 100 ML IVPB SCH (21:08)
[2018-04-04] MEDS ORDERED: HALOPERIDOL LACTATE 5 MG/ML 1 ML VIAL IVP STA (00:11)
[2018-04-04] MEDS: HYDROCORTISONE SUCCINATE 100 MG/2 ML VIAL IV SCH ×3 (00:17→15:57)
[2018-04-04] MEDS: ACYCLOVIR SODIUM 800 MG in SODIUM CHLORIDE 0.9% 250 ML IV SCH ×3 (00:52→15:56)
[2018-04-04] MEDS: SODIUM CHLORIDE 0.9% 1,000 ML IV SCH (02:26)
[2018-04-04] MEDS: VANCOMYCIN 1,500 MG in SODIUM CHLORIDE 0.9% 250 ML IVPB SCH ×2 (06:12→22:29)
[2018-04-04] MEDS ORDERED: LEVOTHYROXINE 25 MCG TAB PO SCH (06:30)
[2018-04-04 06:34] LABS: Basophils # (A) 0.1 k/uL (0-0.2); Basophils % (A) 0 %; Eosinophils % (A) 0 %; HCT 38.8 % (39.0-53.0); HGB 12.5 gm/dL (13.0-17.5); Hypochromasia Slight; Lymphocytes # (A) 0.3 k/uL (1.0-4.8); Lymphocytes % (A) 3 %; MCH 30.6 pg (25.0-35.0); MCHC 32.1 g/dL (31.0-37.0); MCV 95.2 fL (80.0-100.0); Mean Platelet Volume 7.9; Monocytes # (A) 0.8 k/uL (0-1.0); Monocytes % (A) 8 %; Neutrophils # (A) 9.8 k/uL (1.3-7.7); Neutrophils % (A) 89 %; Platelet Count 185 k/uL (150-450); RBC 4.08 m/uL (4.30-5.90); RDW 15.5 % (11.5-15.5); WBC 11.1 k/uL (3.8-10.6)
[2018-04-04 06:38] LABS: Albumin 3.2 g/dL (3.5-5.0); Calcium 8.4 mg/dL (8.4-10.2); Magnesium 1.7 mg/dL (1.6-2.3); Potassium 3.8 mmol/L (3.5-5.1); Total Bilirubin 0.8 mg/dL (0.2-1.3); Total Protein 5.9 g/dL (6.3-8.2)
[2018-04-04 06:39] LABS: INR 1.5 (<1.2)
[2018-04-04] MEDS ORDERED: FUROSEMIDE 10 MG/ML 10 ML VIAL IV STA (08:48)
[2018-04-04] MEDS ORDERED: FINASTERIDE 5 MG TAB PO SCH (09:00)
[2018-04-04] MEDS ORDERED: LISINOPRIL 2.5 MG TAB PO SCH (09:00)
[2018-04-04] MEDS ORDERED: cefTRIAXone 2,000 MG in SODIUM CHLORIDE 0.9% 100 ML IVPB SCH (09:00)
[2018-04-04] MEDS ORDERED: SPIRONOLACTONE 25 MG TAB PO SCH (09:00)
[2018-04-04] MEDS ORDERED: LEVOFLOXACIN 750MG-D5W PMX 750 MG in DEXTROSE/WATER 1 150ML.BAG IVPB SCH (09:00)
--- NOTE | 2018-04-04 09:08 | XR ---
EXAMINATION TYPE: XR chest 1V portable DATE OF EXAM: 04/04/2018 HISTORY: sob. REFERENCE: Previous study dated 04/03/2018. FINDINGS: There is a unipolar pacemaker place on the left. There is overinflation of the lungs. There is multichamber cardiac enlargement. There is vascular con gestion and pulmonary edema. I could not exclude a small left-sided effusion. IMPRESSION: 1. COPD. 2. CHANGES CONSISTENT WITH CONGESTIVE HEART FAILURE.
[2018-04-04] MEDS: PANTOPRAZOLE 40 MG/10 ML VIAL IVP SCH (09:42)
[2018-04-04] MEDS: cefTRIAXone 2,000 MG in SODIUM CHLORIDE 0.9% 100 ML IVPB SCH ×2 (09:42→21:05)
[2018-04-04] MEDS: ENOXAPARIN 40 MG/0.4 ML SYRINGE SQ SCH (11:56)
[2018-04-04] MEDS ORDERED: FUROSEMIDE 40 MG TAB PO SCH (12:00)
--- NOTE | 2018-04-04 12:28 | P.PN ---
Subjective Progress Note Date: 04/04/18 Patient is a pleasant 72-year-old male who is being followed by the neurology service for acute encephalopathy. Patient was without any symptoms when he went to bed evening. Patient woke up in the middle the night into Friday morning with sudden onset severe migraine and confusion. called EMS and patient was brought to [facility] for evaluation. Patient had a fever of 101.8 on admission. No clear-cut source of infection was found. Patient was to have a lumbar puncture but that was put on hold due to high INR. CT of the brain showed cerebral atrophy but no acute intracranial abnormality. Chest x-ray did show cardiomegaly and pulmonary vascular congestion. Infectious disease was consulted and are awaiting INR to come down so the lumbar puncture could be performed. Patient was started on Rocephin, vancomycin, and acyclovir precautionary. On admission, patient had such severe delirium that he needed to be restrained. Today, patient is much more clear and is out restraints and is conversant. At the time of my evaluation, patient is sitting up at the bedside visiting with family. Patient is not quite back to baseline at this time. Objective - Vital Signs Vital signs: Vital Signs Temp 97.4 F L 04/04/18 08:00 Pulse 93 04/04/18 08:00 Resp 18 04/04/18 08:00 BP 184/84 04/04/18 08:00 Pulse Ox 92 L 04/04/18 08:00 Intake & Output 04/03/18 04/04/18 04/04/18 18:59 06:59 18:59 Intake Total 325 900 Output Total 500 640 Balance -175 260 Weight 77.111 kg 64 kg Intake: IV 325 900 Sodium Chloride 0.9% 1, 200 900 000 ml @ 150 mls/hr IV . Q6H40M RADHA Rx#:[id number] Vancomycin 1,500 mg In 125 Sodium Chloride 0.9% 250 ml @ 125 mls/hr IVPB Q16H RADHA Rx#:[id number] Output: Urine 500 640 Other: Voiding Method Indwelling Catheter Indwelling Catheter Indwelling Catheter - Exam PHYSICAL EXAM: GENERAL APPEARANCE: Patient is a well-developed, male who appears to be in no acute distress. HEENT: Normocephalic, atraumatic, no facial asymmetry is seen. Neck is supple with no masses felt. CARDIOVASCULAR: Regular rate and rhythm. ABDOMEN: Nontender, nondistended. EXTREMITIES: Show no edema or clubbing. NEUROLOGICAL EXAM: Patient is awake, alert, and oriented to self only. Patient is not sure where he is or what year it is. Patient is easily reoriented. Strength is full in all 4 extremities. Sensory exam to light touch is normal in all 4 extremities. No facial asymmetry is seen on cranial nerve testing. No tremors or seizure-like activity noted. - Labs CBC & Chem 7: 04/04/18 05:56 04/04/18 05:56 Labs: Abnormal Lab Results - Last 24 Hours (Table) 04/03/18 04/04/18 04/04/18 Range/Units 14:06 05:56 05:56 WBC 11.1 H (3.8-10.6) k/uL RBC 4.08 L (4.30-5.90) m/uL Hgb 12.5 L (13.0-17.5) gm/dL Hct 38.8 L (39.0-53.0) % Neutrophils # 9.8 H (1.3-7.7) k/uL Lymphocytes # 0.3 L (1.0-4.8) k/uL PT (9.0-12.0) sec INR (<1.2) Chloride 108 H (98-107) mmol/L BUN 25 H (9-20) mg/dL Glucose 135 H (74-99) mg/dL POC Glucose (mg/dL) 139 H (75-99) mg/dL AST 62 H (17-59) U/L Total Protein 5.9 L (6.3-8.2) g/dL Albumin 3.2 L (3.5-5.0) g/dL 04/04/18 Range/Units 05:56 WBC (3.8-10.6) k/uL RBC (4.30-5.90) m/uL Hgb (13.0-17.5) gm/dL Hct (39.0-53.0) % Neutrophils # (1.3-7.7) k/uL Lymphocytes # (1.0-4.8) k/uL PT 14.0 H (9.0-12.0) sec INR 1.5 H (<1.2) Chloride (98-107) mmol/L BUN (9-20) mg/dL Glucose (74-99) mg/dL POC Glucose (mg/dL) (75-99) mg/dL AST (17-59) U/L Total Protein (6.3-8.2) g/dL Albumin (3.5-5.0) g/dL Microbiology - Last 24 Hours (Table) 04/03/18 05:00 Urine Culture - Preliminary Urine,Catheterized 04/03/18 04:55 Blood Culture - Preliminary Blood No Growth after 24 hours Assessment and Plan (1) Altered mental status Current Visit: Yes Status: Acute Code(s): R41.82 - ALTERED MENTAL STATUS, UNSPECIFIED SNOMED Code(s): 388805781 (2) Delirium due to general medical condition Current Visit: Yes Status: Acute Code(s): F05 - DELIRIUM DUE TO KNOWN PHYSIOLOGICAL CONDITION SNOMED Code(s): 1886419 (3) Fever Current Visit: Yes Status: Acute Code(s): R50.9 - FEVER, UNSPECIFIED SNOMED Code(s): 235459920 (4) Acute headache Current Visit: No Status: Acute Code(s): R51 - HEADACHE SNOMED Code(s): 252808490 (5) Elevated troponin Current Visit: No Status: Acute Code(s): R79.89 - OTHER SPECIFIED ABNORMAL FINDINGS OF BLOOD CHEMISTRY SNOMED Code(s): 928861749 Plan: Recommendation: Patient has ongoing altered mental status which seems to be acute. Patient was appropriate, pleasant, and conversant in the office about a week ago. Patient will likely need a lumbar puncture once the INR comes down. INR is 1.5 today. Infectious disease is following. There is no clinical focus of infection found. I will order a repeat CT of the brain to evaluate for possible contributing etiology. I will order an EEG. Patient does not present with symptoms consistent seizure. I recommend adjustment of blood pressure medication as his blood pressure is elevated. Chest x-ray today shows changes consistent with congestive heart failure. Patient is on Lasix. Continue neurological checks. I will continue to follow with you. Further recommendations following testing. I performed an examination of the patient and discussed the management with the SENIOR CARE ASSISTANT. I have reviewed the SENIOR CARE ASSISTANT notes and agree with the findings and plan of care.
--- NOTE | 2018-04-04 13:03 | CT ---
EXAMINATION TYPE: CT brain wo con DATE OF EXAM: 04/04/2018 COMPARISON: Previous study dated 04/03/2018 HISTORY: Altered mental status CT DLP: 828.5 mGycm Automated exposure control for dose reduction was used. FINDINGS: There are mild, generalized changes of sulcal prominence and ventriculomegaly compatible with mild at rophic change. There is diffuse periventricular white matter lucency, compatible with chronic white m atter ischemic change. There is no acute focal lesion, mass effect or midline shift identified. I do not see evidence of intracranial blood. There is some chronic mucoperiosteal disease involving the left ethmoid sinus. The bony calvarium is intact. IMPRESSION: 1. NO ACUTE INTRACRANIAL ABNORMALITY. 2. MILD DEGENERATIVE CHANGE. 3. MILD, CHRONIC ETHMOIDAL SINUS DISEASE.
--- NOTE | 2018-04-04 13:15 | P.PN ---
Subjective Progress Note Date: 04/04/18 Principal diagnosis: Acute encephalopathy Patient was agitated this morning easy to reorient currently sitting at the bedside without assistance family including and other family member at the bedside saying that his mentation has improved significantly where he is easy to oriented and following commands patient was kept nothing by mouth due to his confusion but currently seems to be more reliable and following commands accurately. A sitter was at bedside reassured me that the patient. Seems to be much better than yesterday Objective - Vital Signs Vital signs: Vital Signs Temp 97.4 F L 04/04/18 08:00 Pulse 93 04/04/18 08:00 Resp 18 04/04/18 08:00 BP 184/84 04/04/18 08:00 Pulse Ox 92 L 04/04/18 08:00 Intake & Output 04/03/18 04/04/18 04/04/18 18:59 06:59 18:59 Intake Total 325 900 Output Total 500 640 Balance -175 260 Weight 77.111 kg 64 kg Intake: IV 325 900 Sodium Chloride 0.9% 1, 200 900 000 ml @ 150 mls/hr IV . Q6H40M [facility] Rx#:[id number] Vancomycin 1,500 mg In 125 Sodium Chloride 0.9% 250 ml @ 125 mls/hr IVPB Q16H [facility] Rx#:[id number] Output: Urine 500 640 Other: Voiding Method Indwelling Catheter Indwelling Catheter Indwelling Catheter - Exam Gen.: in stated age, no acute distress Heart: Normal S1-S2 Lungs: Clear to auscultation bilaterally Abdomen: Soft, no tenderness, positive bowel sounds in all 4 quadrant no guarding or rebound Skin: No new rash Psych: Alert and oriented 3 Neuro: No focal deficit - Labs CBC & Chem 7: 04/04/18 05:56 04/04/18 05:56 Labs: Abnormal Lab Results - Last 24 Hours (Table) 04/03/18 04/04/18 04/04/18 Range/Units 14:06 05:56 05:56 WBC 11.1 H (3.8-10.6) k/uL RBC 4.08 L (4.30-5.90) m/uL Hgb 12.5 L (13.0-17.5) gm/dL Hct 38.8 L (39.0-53.0) % Neutrophils # 9.8 H (1.3-7.7) k/uL Lymphocytes # 0.3 L (1.0-4.8) k/uL PT (9.0-12.0) sec INR (<1.2) Chloride 108 H (98-107) mmol/L BUN 25 H (9-20) mg/dL Glucose 135 H (74-99) mg/dL POC Glucose (mg/dL) 139 H (75-99) mg/dL AST 62 H (17-59) U/L Total Protein 5.9 L (6.3-8.2) g/dL Albumin 3.2 L (3.5-5.0) g/dL 04/04/18 Range/Units 05:56 WBC (3.8-10.6) k/uL RBC (4.30-5.90) m/uL Hgb (13.0-17.5) gm/dL Hct (39.0-53.0) % Neutrophils # (1.3-7.7) k/uL Lymphocytes # (1.0-4.8) k/uL PT 14.0 H (9.0-12.0) sec INR 1.5 H (<1.2) Chloride (98-107) mmol/L BUN (9-20) mg/dL Glucose (74-99) mg/dL POC Glucose (mg/dL) (75-99) mg/dL AST (17-59) U/L Total Protein (6.3-8.2) g/dL Albumin (3.5-5.0) g/dL Microbiology - Last 24 Hours (Table) 04/03/18 05:00 Urine Culture - Preliminary Urine,Catheterized 04/03/18 04:55 Blood Culture - Preliminary Blood No Growth after 24 hours Assessment and Plan Assessment: 1. Acute encephalopathy metabolic in nature. 2. Meningitis likely viral in etiology. 3. Fever, resolved. 4. Coronary artery disease. 5. Ischemic cardiomyopathy with congestive heart failure seems to be compensated. 6. Chronic atrial fibrillation Coumadin dependent. 7. Hypertension. 8. Hyperlipidemia. 9. History of orthostatic hypotension. Patient overall is improving at least by 50% according to the family he is alert and awake following commands but not oriented to place time or family. I would like to continue with while therapy for antiviral and antibacterial lumbar puncture to be done once INR is appropriate will follow-up with infectious disease recommendation would like to do bedside swallow evaluation and introduce low salt diet, I would like to resume his home medication especially his blood pressure medication as his blood pressure is elevated this morning decrease IV fluid the patient's tolerating diet and may be Hep-Lock the patient. Plan discussed with patient and and nursing staff at the bedside
--- NOTE | 2018-04-04 15:06 | P.CRDCN ---
History of Present Illness History of present illness: This is a pleasant 72-year-old male past medical history significant for chronic persistent atrial fibrillation on long-term anticoagulation, nonischemic cardiomyopathy, chronic systolic heart failure, dyslipidemia, hypertension, valvular heart disease, status post single chamber ICD, chronic kidney disease and history of ventricular fibrillation. He follows with Dr. Cárdenas in the office. We have been asked to see him in consultation for elevated troponin. He was brought to the hospital on 1116 for symptoms of altered mental status, fever and has been diagnosed with severe metabolic encephalopathy. CT of the brain has been performed and is negative for an acute intracranial abnormality. He is seen and examined sitting up in bed with sitter at the bedside. He has apparently been quite combative since admission. His rather to kick neck and complains of shortness of breath time of my exam. He denies chest discomfort, dizziness or palpitations. Stat chest x-ray was ordered and reveals changes consistent with congestive heart failure as well as COPD. The patient is somewhat of a poor historian and much of the information is obtained from the medical record. Neurology has also seen the patient and they're recommending a lumbar puncture once the INR comes down. There has been no source of infection found thus far. EKG reveals atrial fibrillation with controlled ventricular response with ST depression and T-wave inversion noted in the lateral leads. Consistent with old EKGs. Laboratory data reviewed, WBC 11.1, hemoglobin 12.5, INR 1.5, sodium 142, potassium 3.8, creatinine 1.22, magnesium 1.7, NT proBNP 52,000 troponin 0.175. Current cardiac medications include digoxin 250 g daily, Coumadin 2.5 mg daily , lovastatin 40 mg daily, Lasix 60 mg twice a day, potassium supplementation, carvedilol 12.5 mg twice a day, Florinef 0.1 mg twice a day, lisinopril 2.5 mg daily, Aldactone 25 mg daily and Minitran 20 mg twice a day. Most recent echocardiogram obtained in 2014 reveals severely impaired left ventricular systolic function with ejection fraction 25-30%, severely dilated left atrium, mild pulmonary hypertension with an RVSP of 44.2 mmHg, mild to moderate TR and mild to severe MR. Unable to obtain an accurate review of systems secondary to altered up since. Blood pressure 141/88 heart rate 89 afebrile maintaining oxygen saturation on nasal cannula GENERAL: This is a 72-year-old male in mild respiratory distress at the time of my examination. HEENT: Head is atraumatic, normocephalic. Pupils are equal, round. Sclerae anicteric. Conjunctivae are clear. Mucous membranes of the mouth are moist. Neck is supple. There is mild jugular venous distention. No carotid bruit is heard. LUNGS: Coarse rales and rhonchi noted throughout bilateral lung peters. No wheezes noted. No chest wall tenderness is noted on palpation or with deep breathing. HEART: Irregular rate and rhythm with systolic ejection murmur at the left sternal border, no rubs or gallops. S1 and S2 heard. ABDOMEN: Soft, nontender. Bowel sounds are heard. No organomegaly noted. EXTREMITIES: No evidence of peripheral edema and no calf tenderness noted. VASCULAR: Radial and dorsalis pedis pulses palpated, no evidence of clubbing. NEUROLOGIC: Patient is awake and alert but no conversating appropriately. ASSESSMENT Acute on chronic systolic heart failure, last known ejection fraction 25% Acute metabolic encephalopathy awaiting lumbar puncture Meningitis, likely viral Chronic persistent atrial fibrillation on long-term anticoagulation with Coumadin. Currently being held lumbar puncture INR today 1.5 Nonischemic cardiomyopathy Dyslipidemia PLAN Obtain 2D echocardiogram and Doppler study to assess cardiac structure and function. One dose of IV Lasix 60 mg was given earlier this morning at the time of my exam. Initiate him on Lasix IV 60 mg twice a day. Coumadin has been held for lumbar puncture. We will continue to follow closely and make recommendations accordingly. Thank you kindly for this consultation. Nurse Practitioner note has been reviewed, I agree with a documented findings and plan of care. Patient was seen and examined. Past Medical History Past Medical History: Atrial Fibrillation, Heart Failure, CVA/TIA, GERD/Reflux, Hearing Disorder / Deafness, Hyperlipidemia, Hypertension, Memory Impairment, Myocardial Infarction ([place]), Osteoarthritis (OA), Prostate Disorder, Respiratory Disorder Additional Past Medical History / Comment(s): Coronary artery disease, congestion heart failure, previous AICD placement, chronic atrial fibrillation, chronic antibiotic ventilation with warfarin, hypertension, hyperlipidemia, long -term memory impairment, osteoarthritis, BPH, history of migraines and cluster headaches, previous history of myocardial infarction 2, questionable history of sarcoidosis, multiple lipomas, nephrolithiasis, difficulty in swallowing, previous history of Swapnil fundoplication 2014 with a complicated postoperative course, previous history of perforated bowel requiring colectomy in 1995 with a complicated postoperative course, previous history of CVA, impaired vision, impaired hearing Last Myocardial Infarction Date:: unknown History of Any Multi-Drug Resistant Organisms: MRSA Date of last positivie culture/infection: 08/15/09 MDRO Source:: LUNGS Past Surgical History: AICD, Bowel Resection, Heart Catheterization With Stent, Hernia Repair, Orthopedic Surgery, Pacemaker, Prostate Surgery, Tonsillectomy Additional Past Surgical History / Comment(s): Laparoscopic Swapnil fundoplication in 2014, laparoscopic lysis of adhesions, AICD placed in 2008 and subsequent replacement 2013, previous history of bowel resection with diverting colostomy and subsequent reversal for about perforation 1995, history of stomach surgery for a perforated peptic ulcer, history of blepharoplasty bilaterally 2007, surgical repair of a deviated septum 2001, TURP in 2003, vasectomy 1975, right shoulder rotator cuff surgery in 2012, resection of numerous lipomas involving the left leg and 2014, EGD, hiatal hernia surgery in [facility] back in the 50s, bilateral inguinal hernia repair , cardiac catheterization and insertion of coronary stent in 2000 at 2007, lithotripsy 1987 and 2001, prostate surgery Past Anesthesia/Blood Transfusion Reactions: Postoperative Nausea & Vomiting ( PONV) Additional Past Anesthesia/Blood Transfusion Reaction / Comment(s): Pt has never recieved blood Date of Last Stent Placement:: 2007 Type of Cardiac Device: AICD Device Placement Date:: 08/2013 [employer] Smoking Status: Former smoker - Past Family History Brother(s) Family Medical History: Cancer Father Family Medical History: Renal Disease, Respiratory Disorder Additional Family Medical History / Comment(s): Father had some kind of problem with his lungs. Mother Family Medical History: Coronary Artery Disease (CAD), Dementia Sister(s) Family Medical History: No Reported History Medications and Allergies Home Medications Medication Instructions Recorded Confirmed Type Albuterol Sulfate [Proair Hfa] 2 puff INHALATION RT-TID PRN 10/27/13 04/03/18 History Carvedilol [Coreg*] 12.5 mg PO BID 10/27/13 04/03/18 History Dicyclomine [Bentyl] 20 mg PO AC-TID 10/27/13 04/03/18 History Lovastatin [Mevacor] 40 mg PO HS 10/27/13 04/03/18 History Ergocalciferol [Vitamin D2 50,000 unit PO Q14D 12/23/14 04/03/18 History (DRISDOL)] Fludrocortisone [Florinef] 0.1 mg PO BID 02/27/15 04/03/18 History oxyCODONE-APAP 7.5-325MG [Percocet 1 tab PO TID PRN 03/03/15 04/03/18 History 7.5-325 mg] Citalopram Hydrobromide 20 mg PO BID 03/27/16 04/03/18 History [Citalopram HBr] Finasteride [Proscar] 5 mg PO QAM 03/27/16 04/03/18 History Levothyroxine Sodium [Synthroid] 25 mcg PO DAILY 03/27/16 04/03/18 History Lisinopril [Zestril] 2.5 mg PO DAILY #30 tab 04/01/16 04/03/18 Rx Spironolactone [Aldactone] 25 mg PO DAILY #30 tab 04/01/16 04/03/18 Rx Furosemide [Lasix] 60 mg PO BID@0800,1200 02/24/18 04/03/18 History Hydrocortisone [Cortef] 20 mg PO BID 02/24/18 04/03/18 History Midodrine HCl [ProAmatine] 20 mg PO BID 02/24/18 04/03/18 History Potassium Chloride [K-Tab ER] 20 meq PO DAILY 02/24/18 04/03/18 History Warfarin [Coumadin] 2.5 mg PO HS 02/24/18 04/03/18 History Butalb/APAP/Caff 50-325-40Mg 1 tab PO Q8H PRN 04/03/18 04/03/18 History [Fioricet 50-325-40] Digoxin 250 mcg PO HS 04/03/18 04/03/18 History Slow Mag 143 mg PO BID 04/03/18 04/03/18 History Tamsulosin [Flomax] 0.4 mg PO HS 04/03/18 04/03/18 History clonazePAM 0.5 mg PO HS 04/03/18 04/03/18 History Allergies Allergy/AdvReac Type Severity Reaction Status Date / Time Iodinated Contrast- Oral and Allergy Rash/Hives Verified 11/16/18 09:14 IV Dye [Iodinated Contrast Media - IV Dye] nitroglycerin Allergy passed out Verified 04/03/18 09:14 adhesive AdvReac SKIN TURNS Verified 04/03/18 09:14 RED piperacillin sodium AdvReac Confusion Verified 04/03/18 09:14 [From Zosyn] tazobactam sodium AdvReac Confusion Verified 04/03/18 09:14 [From Zosyn] Physical Exam Vitals: Vital Signs Temp Pulse Pulse Resp BP BP Pulse Ox 04/04/18 12:00 98.1 F 89 18 141/88 97 04/04/18 08:00 97.4 F L 93 18 184/84 92 L 04/04/18 04:00 97.4 F L 59 L 18 142/76 97 04/04/18 00:00 98.0 F 85 18 154/69 97 04/03/18 21:00 90 18 132/89 04/03/18 20:00 98.3 F 103 H 93 20 149/107 04/03/18 19:00 100 20 142/107 04/03/18 18:00 102 H 18 164/98 95 04/03/18 17:36 99 F 93 16 160/98 04/03/18 17:00 104 H 22 100/58 96 04/03/18 16:00 99.7 F H 90 93 18 134/92 95 04/03/18 15:00 88 23 135/77 96 Intake and Output 04/03/18 04/04/18 04/04/18 22:59 06:59 14:59 Intake Total 925 300 Output Total 640 500 Balance 285 -200 Intake: IV 925 300 Sodium Chloride 0.9% 1, 800 300 000 ml @ 150 mls/hr IV . Q6H40M [facility] Rx#:[id number] Vancomycin 1,500 mg In 125 Sodium Chloride 0.9% 250 ml @ 125 mls/hr IVPB Q16H [facility] Rx#:[id number] Output: Urine 640 500 Other: Voiding Method Indwelling Catheter Indwelling Catheter Indwelling Catheter Weight 64 kg Results 04/04/18 05:56 04/04/18 05:56 Cardiac Enzymes 04/04/18 Range/Units 05:56 AST 62 H (17-59) U/L Coagulation 04/04/18 Range/Units 05:56 PT 14.0 H (9.0-12.0) sec CBC 04/04/18 Range/Units 05:56 WBC 11.1 H (3.8-10.6) k/uL RBC 4.08 L (4.30-5.90) m/uL Hgb 12.5 L (13.0-17.5) gm/dL Hct 38.8 L (39.0-53.0) % Plt Count 185 (150-450) k/uL Comprehensive Metabolic Panel 04/04/18 Range/Units 05:56 Sodium 142 (137-145) mmol/L Potassium 3.8 (3.5-5.1) mmol/L Chloride 108 H (98-107) mmol/L Carbon Dioxide 28 (22-30) mmol/L BUN 25 H (9-20) mg/dL Creatinine 1.22 (0.66-1.25) mg/dL Glucose 135 H (74-99) mg/dL Calcium 8.4 (8.4-10.2) mg/dL AST 62 H (17-59) U/L ALT 37 (21-72) U/L Alkaline Phosphatase 44 (38-126) U/L Total Protein 5.9 L (6.3-8.2) g/dL Albumin 3.2 L (3.5-5.0) g/dL Current Medications Generic Name Dose Route Start Last Admin Trade Name Freq PRN Reason Stop Dose Admin Enoxaparin Sodium 40 mg 04/03/18 09:00 04/04/18 11:56 Lovenox SQ Not Given DAILY [facility] Furosemide 60 mg 04/04/18 12:00 04/04/18 14:08 Lasix PO 60 mg BID@0800,1200 [facility] Administration Hydrocortisone Sodium Succinate 100 mg 04/03/18 16:00 04/04/18 09:43 Solu-Cortef IV 100 mg Q8HR [facility] Administration Ceftriaxone Sodium 2,000 mg/ 100 mls @ 100 mls/hr 04/03/18 21:00 04/04/18 09: 42 Sodium Chloride IVPB 100 mls/hr Q12HR [facility] Administration Vancomycin HCl 1,500 mg/ 250 mls @ 125 mls/hr 04/03/18 14:00 04/04/18 06:12 Sodium Chloride IVPB 125 mls/hr Q16H [facility] Administration Acyclovir Sodium 800 mg/ 266 mls @ 266 mls/hr 04/04/18 00:00 04/04/18 11:56 Sodium Chloride IV 266 mls/hr Q8HR [facility] Administration Pantoprazole Sodium 40 mg 04/03/18 13:15 04/04/18 09:42 Protonix IVP 40 mg DAILY [facility] Administration Intake and Output 04/03/18 04/04/18 04/04/18 22:59 06:59 14:59 Intake Total 925 300 Output Total 640 500 Balance 285 -200 Intake: IV 925 300 Sodium Chloride 0.9% 1, 800 300 000 ml @ 150 mls/hr IV . Q6H40M [facility] Rx#:[id number] Vancomycin 1,500 mg In 125 Sodium Chloride 0.9% 250 ml @ 125 mls/hr IVPB Q16H [facility] Rx#:[id number] Output: Urine 640 500 Other: Voiding Method Indwelling Catheter Indwelling Catheter Indwelling Catheter Weight 64 kg 04/04/18 05:56 04/04/18 05:56
[2018-04-04] MEDS ORDERED: BUTALB/APAP/CAFF 50-325-40MG TAB PO PRN (16:46)
[2018-04-04] MEDS: LISINOPRIL 2.5 MG TAB PO SCH (17:38)
[2018-04-04] MEDS: CARVEDILOL 12.5 MG TAB PO SCH (17:39)
[2018-04-04] MEDS: DICYCLOMINE 20 MG TAB PO SCH (17:39)
[2018-04-04] MEDS ORDERED: FUROSEMIDE 10 MG/ML 4 ML VIAL IV SCH (21:00)
[2018-04-04] MEDS: FUROSEMIDE 10 MG/ML 10 ML VIAL IV SCH (21:04)
[2018-04-04] MEDS: DIGOXIN 250 MCG TAB PO SCH (21:04)
[2018-04-04] MEDS: ATORVASTATIN 10 MG TAB PO SCH (21:04)
[2018-04-04] MEDS: CITALOPRAM HYDROBROMIDE 20 MG TAB PO SCH (21:04)
[2018-04-04] MEDS: MAGNESIUM OXIDE 400 MG TAB PO SCH (21:04)
[2018-04-04] MEDS: clonazePAM 0.5 MG TAB PO SCH (21:04)
[2018-04-04] MEDS: FLUDROCORTISONE 0.1 MG TAB PO SCH (21:04)
[2018-04-04] MEDS: TAMSULOSIN 0.4 MG CAP.ER.24H PO SCH (21:05)
[2018-04-05] MEDS: ACYCLOVIR SODIUM 800 MG in SODIUM CHLORIDE 0.9% 250 ML IV SCH ×4 (00:50→23:41)
[2018-04-05] MEDS: HYDROCORTISONE SUCCINATE 100 MG/2 ML VIAL IV SCH ×4 (00:50→23:41)
[2018-04-05] MEDS: DICYCLOMINE 20 MG TAB PO SCH ×3 (06:52→16:59)
[2018-04-05] MEDS: LEVOTHYROXINE 25 MCG TAB PO SCH (06:53)
[2018-04-05] MEDS: CARVEDILOL 12.5 MG TAB PO SCH ×2 (06:53→16:59)
[2018-04-05] MEDS: FINASTERIDE 5 MG TAB PO SCH (08:46)
[2018-04-05] MEDS: LISINOPRIL 2.5 MG TAB PO SCH (08:46)
[2018-04-05] MEDS: SPIRONOLACTONE 25 MG TAB PO SCH (08:46)
[2018-04-05] MEDS: MAGNESIUM OXIDE 400 MG TAB PO SCH ×2 (08:46→20:13)
[2018-04-05] MEDS: FUROSEMIDE 10 MG/ML 10 ML VIAL IV SCH ×2 (08:46→23:42)
[2018-04-05] MEDS: ENOXAPARIN 40 MG/0.4 ML SYRINGE SQ SCH (08:47)
[2018-04-05] MEDS: CITALOPRAM HYDROBROMIDE 20 MG TAB PO SCH ×2 (08:47→20:13)
[2018-04-05] MEDS: PANTOPRAZOLE 40 MG/10 ML VIAL IVP SCH (08:48)
[2018-04-05] MEDS: FLUDROCORTISONE 0.1 MG TAB PO SCH ×2 (08:50→20:13)
[2018-04-05] MEDS: cefTRIAXone 2,000 MG in SODIUM CHLORIDE 0.9% 100 ML IVPB SCH ×2 (11:04→20:12)
[2018-04-05 12:26] LABS: Calcium 7.9 mg/dL (8.4-10.2)
[2018-04-05 12:28] LABS: Potassium 2.7 mmol/L (3.5-5.1)
[2018-04-05 12:37] LABS: INR 1.5 (<1.2); Prothrombin Time 14.2 sec (9.0-12.0)
[2018-04-05 12:38] LABS: Basophils % (A) 0 %; Eosinophils % (A) 0 %; HCT 38.5 % (39.0-53.0); HGB 12.5 gm/dL (13.0-17.5); Lymphocytes # (A) 0.3 k/uL (1.0-4.8); Lymphocytes % (A) 2 %; MCH 30.3 pg (25.0-35.0); MCHC 32.5 g/dL (31.0-37.0); MCV 93.4 fL (80.0-100.0); Monocytes # (A) 0.8 k/uL (0-1.0); Monocytes % (A) 6 %; Neutrophils % (A) 91 %; Platelet Count 202 k/uL (150-450); RBC 4.12 m/uL (4.30-5.90); RDW 15.5 % (11.5-15.5); WBC 12.2 k/uL (3.8-10.6)
[2018-04-05] MEDS ORDERED: Potassium Replacement Protocol 1 EACH MISC MISCELLANE PRN (13:14)
[2018-04-05] MEDS: VANCOMYCIN 1,500 MG in SODIUM CHLORIDE 0.9% 250 ML IVPB SCH (13:51)
[2018-04-05] MEDS: POTASSIUM CHLORIDE ER 20 MEQ TAB.ER PO SCH ×4 (13:52→23:42)
--- NOTE | 2018-04-05 14:36 | P.PN ---
Subjective Progress Note Date: 04/05/18 This is a 72-year-old gentleman with history of chronic persistent atrial fibrillation. Nonischemic heart myopathy and chronic congestive heart failure who was admitted to the hospital with the altered mental status and combative behavior. Patient was diagnosed to have severe metabolic encephalopathy. He was also in congestive heart failure. His proBNP is 52,000. Patient was treated with IV Lasix with good diuresis. He seemed to be feeling better and much more oriented. Doesn't appear to be in acute distress.. Patient is diuresing well. Patient developed hypokalemia, which needs to be corrected. Overall, patient's mental status and physical status improved Objective - Vital Signs Vital signs: Vital Signs Temp 97.5 F L 04/05/18 12:00 Pulse 105 H 04/05/18 12:00 Resp 18 04/05/18 12:00 BP 136/80 04/05/18 12:00 Pulse Ox 95 04/05/18 12:00 Intake & Output 04/04/18 04/05/18 04/05/18 18:59 06:59 18:59 Intake Total 222 580 222 Output Total 800 2350 1200 Balance -578 -1770 -978 Weight 64 kg Intake: IV 330 Sodium Chloride 0.9% 1, 80 000 ml @ 150 mls/hr IV . Q6H40M [facility] Rx#:[id number] Vancomycin 1,500 mg In 250 Sodium Chloride 0.9% 250 ml @ 125 mls/hr IVPB Q16H [facility] Rx#:[id number] Intake, IV Titration 250 Amount Acyclovir Sodium 800 mg 250 In Sodium Chloride 0.9% 250 ml @ 266 mls/hr IV Q8HR [facility] Rx#:[id number] Oral 222 222 Output: Urine 800 2350 1200 Other: Voiding Method Indwelling Catheter Indwelling Catheter # Bowel Movements 4 3 - Exam GENERAL EXAM: Patient is alert and oriented and doesn't appear to be in any acute distress HEENT: Normocephalic. Normal reaction of pupils, equal size, normal range of extraocular motion. No erythema or exudates in the throat. NECK: No masses, no nuchal rigidity. CHEST: No chest wall deformity. LUNGS: Equal air entry with no crackles or wheeze. HEART: S1 and S2 normal with no audible mumurs or gallops. Regular rhythm, femorals equal on both sides.. ABDOMEN: No hepatosplenomegaly, normal bowel sounds, no guarding or rigidity. SKIN: No rashes CENTRAL NERVOUS SYSTEM: No focal deficits. EXTREMITIES: Edema present - Labs CBC & Chem 7: 04/05/18 11:43 04/05/18 11:43 Labs: Abnormal Lab Results - Last 24 Hours (Table) 04/05/18 04/05/18 04/05/18 Range/Units 11:43 11:43 11:43 WBC 12.2 H (3.8-10.6) k/uL RBC 4.12 L (4.30-5.90) m/uL Hgb 12.5 L (13.0-17.5) gm/dL Hct 38.5 L (39.0-53.0) % Neutrophils # 11.0 H (1.3-7.7) k/uL Lymphocytes # 0.3 L (1.0-4.8) k/uL PT 14.2 H (9.0-12.0) sec INR 1.5 H (<1.2) Potassium 2.7 L* (3.5-5.1) mmol/L Carbon Dioxide 34 H (22-30) mmol/L BUN 27 H (9-20) mg/dL Glucose 142 H (74-99) mg/dL Calcium 7.9 L (8.4-10.2) mg/dL Microbiology - Last 24 Hours (Table) 04/03/18 05:00 Urine Culture - Final Urine,Catheterized 04/03/18 04:55 Blood Culture - Preliminary Blood No Growth after 48 hours 04/03/18 13:45 Blood Culture - Preliminary Blood No Growth after 24 hours Assessment and Plan (1) Cardiomyopathy Current Visit: Yes Status: Acute Code(s): I42.9 - CARDIOMYOPATHY, UNSPECIFIED SNOMED Code(s): 11226180 (2) Altered mental status Current Visit: Yes Status: Acute Code(s): R41.82 - ALTERED MENTAL STATUS, UNSPECIFIED SNOMED Code(s): 779506222 (3) Encephalopathy Current Visit: No Status: Acute Code(s): G93.40 - ENCEPHALOPATHY, UNSPECIFIED SNOMED Code(s): 37287942 (4) Hypokalemia Current Visit: No Status: Acute Code(s): E87.6 - HYPOKALEMIA SNOMED Code(s ): 87276195 (5) Acute on chronic systolic (congestive) heart failure Current Visit: Yes Status: Acute Code(s): I50.23 - ACUTE ON CHRONIC SYSTOLIC (CONGESTIVE) HEART FAILURE SNOMED Code(s): 742752030 Plan: Continue current medical therapy. Correct potassium. We'll follow
--- NOTE | 2018-04-05 15:45 | P.PN ---
Subjective Progress Note Date: 04/05/18 Principal diagnosis: Acute encephalopathy Patient seems to be improving more awake today following commands still not oriented to time or place. Patient is tolerating diet without difficulty but still have low appetite. No fever reported in the last 24 hours Objective - Vital Signs Vital signs: Vital Signs Temp 97.5 F L 04/05/18 12:00 Pulse 105 H 04/05/18 12:00 Resp 18 04/05/18 12:00 BP 136/80 04/05/18 12:00 Pulse Ox 95 04/05/18 12:00 Intake & Output 04/04/18 04/05/18 04/05/18 18:59 06:59 18:59 Intake Total 222 580 222 Output Total 800 2350 1200 Balance -578 -1770 -978 Weight 64 kg Intake: IV 330 Sodium Chloride 0.9% 1, 80 000 ml @ 150 mls/hr IV . Q6H40M [facility] Rx#:[id number] Vancomycin 1,500 mg In 250 Sodium Chloride 0.9% 250 ml @ 125 mls/hr IVPB Q16H [facility] Rx#:[id number] Intake, IV Titration 250 Amount Acyclovir Sodium 800 mg 250 In Sodium Chloride 0.9% 250 ml @ 266 mls/hr IV Q8HR [facility] Rx#:[id number] Oral 222 222 Output: Urine 800 2350 1200 Other: Voiding Method Indwelling Catheter Indwelling Catheter # Bowel Movements 4 3 - Exam Gen.: in stated age, no acute distress Heart: Normal S1-S2 Lungs: Clear to auscultation bilaterally Abdomen: Soft, no tenderness, positive bowel sounds in all 4 quadrant no guarding or rebound Skin: No new rash Psych: Alert and oriented 3 Neuro: No focal deficit - Labs CBC & Chem 7: 04/05/18 11:43 04/05/18 11:43 Labs: Abnormal Lab Results - Last 24 Hours (Table) 04/05/18 04/05/18 04/05/18 Range/Units 11:43 11:43 11:43 WBC 12.2 H (3.8-10.6) k/uL RBC 4.12 L (4.30-5.90) m/uL Hgb 12.5 L (13.0-17.5) gm/dL Hct 38.5 L (39.0-53.0) % Neutrophils # 11.0 H (1.3-7.7) k/uL Lymphocytes # 0.3 L (1.0-4.8) k/uL PT 14.2 H (9.0-12.0) sec INR 1.5 H (<1.2) Potassium 2.7 L* (3.5-5.1) mmol/L Carbon Dioxide 34 H (22-30) mmol/L BUN 27 H (9-20) mg/dL Glucose 142 H (74-99) mg/dL Calcium 7.9 L (8.4-10.2) mg/dL Microbiology - Last 24 Hours (Table) 04/03/18 05:00 Urine Culture - Final Urine,Catheterized 04/03/18 04:55 Blood Culture - Preliminary Blood No Growth after 48 hours 04/03/18 13:45 Blood Culture - Preliminary Blood No Growth after 24 hours Assessment and Plan Assessment: 1. Acute encephalopathy metabolic in nature. 2. Meningitis likely viral in etiology. 3. Fever, resolved. 4. Coronary artery disease. 5. Ischemic cardiomyopathy with congestive heart failure seems to be compensated. 6. Chronic atrial fibrillation Coumadin dependent. 7. Hypertension. 8. Hyperlipidemia. 9. History of orthostatic hypotension. I would like to continue with while therapy for antiviral and antibacterial lumbar puncture to be done once INR is appropriate will follow-up with infectious disease recommendation patient is improving and I would like to increase his activity set up in chair at physical clinic patient of therapy evaluated the patient's lumbar puncture to be considered based on neurology recommendation. I would like to stop patient's and ensure 3 times daily and encourage oral intake
--- NOTE | 2018-04-05 17:17 | P.PN ---
Subjective Progress Note Date: 04/05/18 Patient is a pleasant 72-year-old male who is being followed by the neurology service for acute encephalopathy. Patient was without any symptoms when he went to bed evening. Patient woke up in the middle the night into Friday morning with sudden onset severe migraine and confusion. called EMS and patient was brought to [facility] for evaluation. Patient had a fever of 101.8 on admission. No clear-cut source of infection was found. Patient was to have a lumbar puncture but that was put on hold due to high INR. CT of the brain showed cerebral atrophy but no acute intracranial abnormality. Chest x-ray did show cardiomegaly and pulmonary vascular congestion. Infectious disease was consulted and are awaiting INR to come down so the lumbar puncture could be performed. Patient was started on Rocephin, vancomycin, and acyclovir precautionary. On admission, patient had such severe delirium that he needed to be restrained. Today, patient is much more clear and is out restraints and is conversant. At the time of my evaluation, patient is sitting up at the bedside visiting with family. Patient is not quite back to baseline at this time. 04/05/2018 Patient is a pleasant 72-year-old male who is being followed by the neurology service for acute encephalopathy. Patient is doing much better today. He is still not oriented to month or year. He converses appropriately. He reports improvement in headache and neck pain. He seems to be responding well to antibiotics. His INR continues to be 1.5 even without Coumadin dosing. At the time of my evaluation, patient is resting comfortably in bed and appears to be in no acute distress. is at the bedside. Objective - Vital Signs Vital signs: Vital Signs Temp 97.5 F L 04/05/18 12:00 Pulse 105 H 04/05/18 12:00 Resp 18 04/05/18 12:00 BP 136/80 04/05/18 12:00 Pulse Ox 95 04/05/18 12:00 Intake & Output 04/04/18 04/05/18 04/05/18 18:59 06:59 18:59 Intake Total 222 580 222 Output Total 800 2350 1200 Balance -578 -1770 -978 Weight 64 kg Intake: IV 330 Sodium Chloride 0.9% 1, 80 000 ml @ 150 mls/hr IV . Q6H40M [facility] Rx#:[id number] Vancomycin 1,500 mg In 250 Sodium Chloride 0.9% 250 ml @ 125 mls/hr IVPB Q16H [facility] Rx#:[id number] Intake, IV Titration 250 Amount Acyclovir Sodium 800 mg 250 In Sodium Chloride 0.9% 250 ml @ 266 mls/hr IV Q8HR [facility] Rx#:[id number] Oral 222 222 Output: Urine 800 2350 1200 Other: Voiding Method Indwelling Catheter Indwelling Catheter # Bowel Movements 4 3 - Exam PHYSICAL EXAM: GENERAL APPEARANCE: Patient is a well-developed, male who appears to be in no acute distress. HEENT: Normocephalic, atraumatic, no facial asymmetry is seen. Neck is supple with no masses felt. CARDIOVASCULAR: Regular rate and rhythm. ABDOMEN: Nontender, nondistended. EXTREMITIES: Show no edema or clubbing. NEUROLOGICAL EXAM: Patient is awake, alert, and oriented to self only. Patient is not sure where he is or what year it is. Patient is easily reoriented. Strength is full in all 4 extremities. Sensory exam to light touch is normal in all 4 extremities. No facial asymmetry is seen on cranial nerve testing. No tremors or seizure-like activity noted. - Labs CBC & Chem 7: 04/05/18 11:43 04/05/18 11:43 Labs: Abnormal Lab Results - Last 24 Hours (Table) 04/05/18 04/05/1818 Range/Units 11:43 11:43 11:43 WBC 12.2 H (3.8-10.6) k/uL RBC 4.12 L (4.30-5.90) m/uL Hgb 12.5 L (13.0-17.5) gm/dL Hct 38.5 L (39.0-53.0) % Neutrophils # 11.0 H (1.3-7.7) k/uL Lymphocytes # 0.3 L (1.0-4.8) k/uL PT 14.2 H (9.0-12.0) sec INR 1.5 H (<1.2) Potassium 2.7 L* (3.5-5.1) mmol/L Carbon Dioxide 34 H (22-30) mmol/L BUN 27 H (9-20) mg/dL Glucose 142 H (74-99) mg/dL Calcium 7.9 L (8.4-10.2) mg/dL Microbiology - Last 24 Hours (Table) 04/03/18 13:45 Blood Culture - Preliminary Blood No Growth after 48 hours 04/03/18 05:00 Urine Culture - Final Urine,Catheterized 04/03/18 04:55 Blood Culture - Preliminary Blood No Growth after 48 hours Assessment and Plan (1) Altered mental status Current Visit: Yes Status: Acute Code(s): R41.82 - ALTERED MENTAL STATUS, UNSPECIFIED SNOMED Code(s): 153727922 (2) Delirium due to general medical condition Current Visit: Yes Status: Acute Code(s): F05 - DELIRIUM DUE TO KNOWN PHYSIOLOGICAL CONDITION SNOMED Code(s): 8408315 (3) Fever Current Visit: Yes Status: Acute Code(s): R50.9 - FEVER, UNSPECIFIED SNOMED Code(s): 691283000 (4) Acute headache Current Visit: No Status: Acute Code(s): R51 - HEADACHE SNOMED Code(s): 503733044 (5) Elevated troponin Current Visit: No Status: Acute Code(s): R79.89 - OTHER SPECIFIED ABNORMAL FINDINGS OF BLOOD CHEMISTRY SNOMED Code(s): 573164121 Plan: Recommendation: Patient's mental status has significantly improved. He continues to respond to antibiotics. Treatment plan was to do a lumbar puncture once his INR came down, however, patient has been on antibiotics for days and is responding well. No need for a lumbar puncture from neurological standpoint. We'll check with infectious disease on their opinion whether lumbar puncture is still needed or not. INR is 1.5 today. Infectious disease is following. Patient's repeat CT of the brain was negative for any acute process. EEG is pending. Blood pressure is with better control. Continue neurological checks. I will continue to follow with you. Further recommendations following testing. I performed an examination of the patient and discussed the management with the BLACKJACK DEALER. I have reviewed the BLACKJACK DEALER notes and agree with the findings and plan of care.
[2018-04-05] MEDS: ATORVASTATIN 10 MG TAB PO SCH (20:13)
[2018-04-05] MEDS: DIGOXIN 250 MCG TAB PO SCH (20:13)
[2018-04-05] MEDS: clonazePAM 0.5 MG TAB PO SCH (20:13)
[2018-04-05] MEDS: TAMSULOSIN 0.4 MG CAP.ER.24H PO SCH (20:13)
[2018-04-06] MEDS: POTASSIUM CHLORIDE ER 20 MEQ TAB.ER PO SCH ×2 (00:54→08:43)
[2018-04-06 03:36] VITALS: RESP 18
[2018-04-06 04:16] LABS: INR 1.5 (<1.2); Prothrombin Time 14.2 sec (9.0-12.0)
[2018-04-06 04:25] LABS: Calcium 8.2 mg/dL (8.4-10.2); Magnesium 1.6 mg/dL (1.6-2.3); Potassium 3.1 mmol/L (3.5-5.1)
[2018-04-06 04:35] LABS: Basophils % (A) 0 %; Eosinophils % (A) 0 %; HCT 39.7 % (39.0-53.0); HGB 12.2 gm/dL (13.0-17.5); Lymphocytes # (A) 0.2 k/uL (1.0-4.8); Lymphocytes % (A) 2 %; MCH 29.2 pg (25.0-35.0); MCHC 30.7 g/dL (31.0-37.0); MCV 95.2 fL (80.0-100.0); Mean Platelet Volume 8.2; Monocytes # (A) 0.8 k/uL (0-1.0); Monocytes % (A) 7 %; Neutrophils # (A) 11.1 k/uL (1.3-7.7); Neutrophils % (A) 90 %; Platelet Count 221 k/uL (150-450); RBC 4.17 m/uL (4.30-5.90); RDW 15.4 % (11.5-15.5); WBC 12.3 k/uL (3.8-10.6)
[2018-04-06] MEDS ORDERED: VANCOMYCIN TROUGH DUE 1 EACH MISC MISCELLANE ONE (05:00)
[2018-04-06] MEDS: CARVEDILOL 12.5 MG TAB PO SCH ×2 (06:40→17:15)
[2018-04-06] MEDS: LEVOTHYROXINE 25 MCG TAB PO SCH (06:40)
[2018-04-06] MEDS: DICYCLOMINE 20 MG TAB PO SCH ×3 (06:40→17:15)
[2018-04-06] MEDS ORDERED: Magnesium Replacement Protocol 1 EACH MISC MISCELLANE PRN (06:47)
[2018-04-06] MEDS: PANTOPRAZOLE 40 MG/10 ML VIAL IVP SCH (08:41)
[2018-04-06] MEDS: FUROSEMIDE 10 MG/ML 10 ML VIAL IV SCH ×2 (08:41→21:14)
[2018-04-06] MEDS: ACYCLOVIR SODIUM 800 MG in SODIUM CHLORIDE 0.9% 250 ML IV SCH ×2 (08:41→21:14)
[2018-04-06] MEDS: cefTRIAXone 2,000 MG in SODIUM CHLORIDE 0.9% 100 ML IVPB SCH ×2 (08:42→22:40)
[2018-04-06] MEDS: HYDROCORTISONE SUCCINATE 100 MG/2 ML VIAL IV SCH ×3 (08:42→23:25)
[2018-04-06] MEDS: FINASTERIDE 5 MG TAB PO SCH (08:43)
[2018-04-06] MEDS: LISINOPRIL 2.5 MG TAB PO SCH (08:43)
[2018-04-06] MEDS: CITALOPRAM HYDROBROMIDE 20 MG TAB PO SCH ×2 (08:43→22:40)
[2018-04-06] MEDS: SPIRONOLACTONE 25 MG TAB PO SCH (08:43)
[2018-04-06] MEDS: MAGNESIUM OXIDE 400 MG TAB PO SCH ×2 (08:43→22:40)
[2018-04-06] MEDS: ENOXAPARIN 40 MG/0.4 ML SYRINGE SQ SCH (08:48)
[2018-04-06] MEDS: FLUDROCORTISONE 0.1 MG TAB PO SCH ×2 (08:51→23:25)
[2018-04-06] MEDS: MAGNESIUM SULFATE-D5W PMX 1 GM in DEXTROSE/WATER 1 100ML.BAG IVPB SCH ×2 (12:13→14:48)
[2018-04-06] MEDS ORDERED: clonazePAM 0.5 MG TAB PO PRN (12:53)
--- NOTE | 2018-04-06 15:01 | P.PN ---
Subjective Progress Note Date: 04/06/18 This is a pleasant 72-year-old male past medical history significant for chronic persistent atrial fibrillation on long-term anticoagulation, nonischemic cardiomyopathy, chronic systolic heart failure, dyslipidemia, hypertension, valvular heart disease, status post single chamber ICD, chronic kidney disease and history of ventricular fibrillation. He follows with Dr. Cárdenas in the office. We have been asked to see him in consultation for elevated troponin. He was brought to the hospital on 1115 for symptoms of altered mental status, fever and has been diagnosed with severe metabolic encephalopathy. CT of the brain has been performed and is negative for an acute intracranial abnormality. Patient has been receiving IV diuretics for congestive heart failure. Last documented ejection fraction 25%. On review of the rhythm strips, it appears that the patient had runs of nonsustained ventricular tachycardia and with anti-tachycardia pacing, was paced out of it. Patient was on Lanoxin which we'll discontinue today. He on IV Lasix. We will discontinue the ALFRED inhibitor and start the patient on an intestinal from . Potassium today is 3.1, which is being replaced. Magnesium 1.6, we will also give replacement for that. We'll start the patient on oral amiodarone as well. The chest x-ray tomorrow. Objective - Vital Signs Vital signs: Vital Signs Temp 98.2 F 04/06/18 12:00 Pulse 69 04/06/18 12:00 Resp 18 04/06/18 12:00 BP 98/76 04/06/18 12:00 Pulse Ox 96 04/06/18 12:00 Intake & Output 04/05/18 04/06/18 04/06/18 18:59 06:59 18:59 Intake Total 522 600 462 Output Total 1200 1000 Balance -678 -400 462 Intake: Oral 522 600 462 Output: Urine 1200 1000 Other: Voiding Method Indwelling Catheter Indwelling Catheter # Bowel Movements 3 - Exam Blood pressure 112/68 heart rate 69 afebrile maintaining oxygen saturation on nasal cannula GENERAL: This is a 72-year-old male in mild respiratory distress at the time of my examination. HEENT: Head is atraumatic, normocephalic. Pupils are equal, round. Sclerae anicteric. Conjunctivae are clear. Mucous membranes of the mouth are moist. Neck is supple. There is mild jugular venous distention. No carotid bruit is heard. LUNGS: Coarse rales and rhonchi noted throughout bilateral lung peters. No wheezes noted. No chest wall tenderness is noted on palpation or with deep breathing. HEART: Irregular rate and rhythm with systolic ejection murmur at the left sternal border, no rubs or gallops. S1 and S2 heard. ABDOMEN: Soft, nontender. Bowel sounds are heard. No organomegaly noted. EXTREMITIES: No evidence of peripheral edema and no calf tenderness noted. VASCULAR: Radial and dorsalis pedis pulses palpated, no evidence of clubbing. NEUROLOGIC: Patient is awake and alert but no conversating appropriately. - Labs CBC & Chem 7: 04/06/18 03:13 04/06/18 03:13 Labs: Abnormal Lab Results - Last 24 Hours (Table) 04/05/18 04/05/18 04/06/18 Range/Units 05:36 20:56 03:13 WBC 12.3 H (3.8-10.6) k/uL RBC 4.17 L (4.30-5.90) m/uL Hgb 12.2 L (13.0-17.5) gm/dL MCHC 30.7 L (31.0-37.0) g/dL Neutrophils # 11.1 H (1.3-7.7) k/uL Lymphocytes # 0.2 L (1.0-4.8) k/uL PT (9.0-12.0) sec INR (<1.2) Potassium 3.3 L (3.5-5.1) mmol/L Carbon Dioxide (22-30) mmol/L BUN (9-20) mg/dL Creatinine (0.66-1.25) mg/dL Glucose (74-99) mg/dL Calcium (8.4-10.2) mg/dL HSV I IgG Interpret POSITIVE H (NEGATIVE) 04/06/18 04/06/18 Range/Units 03:13 03:13 WBC (3.8-10.6) k/uL RBC (4.30-5.90) m/uL Hgb (13.0-17.5) gm/dL MCHC (31.0-37.0) g/dL Neutrophils # (1.3-7.7) k/uL Lymphocytes # (1.0-4.8) k/uL PT 14.2 H (9.0-12.0) sec INR 1.5 H (<1.2) Potassium 3.1 L (3.5-5.1) mmol/L Carbon Dioxide 33 H (22-30) mmol/L BUN 28 H (9-20) mg/dL Creatinine 1.26 H (0.66-1.25) mg/dL Glucose 149 H (74-99) mg/dL Calcium 8.2 L (8.4-10.2) mg/dL HSV I IgG Interpret (NEGATIVE) Microbiology - Last 24 Hours (Table) 04/03/18 04:55 Blood Culture - Preliminary Blood No Growth after 72 hours 04/03/18 13:45 Blood Culture - Preliminary Blood No Growth after 48 hours 04/03/18 05:00 Urine Culture - Final Urine,Catheterized Assessment and Plan Plan: ASSESSMENT and plan #1 Acute on chronic systolic heart failure, last known ejection fraction 25% status post AICD #2 Acute metabolic encephalopathy awaiting lumbar puncture #3 Meningitis, likely viral #4 Chronic persistent atrial fibrillation on long-term anticoagulation with Coumadin. Currently being held lumbar puncture INR today 1.5 #5 Nonischemic cardiomyopathy #6 Dyslipidemia #7 nonsustained ventricular tachycardia, halted by ATP Plan We will continue current dose of IV Lasix. We will also add amiodarone to the patient's medication regime, replace potassium and magnesium. Interrogate AICD. Repeat chest x-ray in the morning and discontinue Lanoxin. We will also hold the ALFRED inhibitor and initiate Entresto from . DNP note has been reviewed, I agree with a documented findings and plan of care. Patient was seen and examined.
--- NOTE | 2018-04-06 16:14 | P.PN ---
Subjective Progress Note Date: 04/06/18 Patient is a pleasant 72-year-old male who is being followed by the neurology service for acute encephalopathy. Patient was without any symptoms when he went to bed evening. Patient woke up in the middle the night into Friday morning with sudden onset severe migraine and confusion. called EMS and patient was brought to [facility] for evaluation. Patient had a fever of 101.8 on admission. No clear-cut source of infection was found. Patient was to have a lumbar puncture but that was put on hold due to high INR. CT of the brain showed cerebral atrophy but no acute intracranial abnormality. Chest x-ray did show cardiomegaly and pulmonary vascular congestion. Infectious disease was consulted and are awaiting INR to come down so the lumbar puncture could be performed. Patient was started on Rocephin, vancomycin, and acyclovir precautionary. On admission, patient had such severe delirium that he needed to be restrained. Today, patient is much more clear and is out restraints and is conversant. At the time of my evaluation, patient is sitting up at the bedside visiting with family. Patient is not quite back to baseline at this time. 04/05/2018 Patient is a pleasant 72-year-old male who is being followed by the neurology service for acute encephalopathy. Patient is doing much better today. He is still not oriented to month or year. He converses appropriately. He reports improvement in headache and neck pain. He seems to be responding well to antibiotics. His INR continues to be 1.5 even without Coumadin dosing. At the time of my evaluation, patient is resting comfortably in bed and appears to be in no acute distress. is at the bedside. 04/06/2018 Patient is a pleasant 72-year-old male is being followed by the neurology service for acute encephalopathy. Patient is much improved today. His cognition is almost back to baseline. He is oriented 3 today. He remembers the past 2 days. He has no new neurological complaints. Antibiotics are continuing. Patient is awaiting a lumbar puncture once INR is lower. Cardiology is following for chronic systolic heart failure and cardiac arrhythmias. At the time of my evaluation, patient is resting comfortably in bed and appears to be in no acute distress. Family is at the bedside. Objective - Vital Signs Vital signs: Vital Signs Temp 98.2 F 04/06/18 12:00 Pulse 69 04/06/18 12:00 Resp 18 04/06/18 12:00 BP 98/76 04/06/18 12:00 Pulse Ox 96 04/06/18 12:00 Intake & Output 04/05/18 04/06/18 04/06/18 18:59 06:59 18:59 Intake Total 522 600 462 Output Total 1200 1000 Balance -678 -400 462 Intake: Oral 522 600 462 Output: Urine 1200 1000 Other: Voiding Method Indwelling Catheter Indwelling Catheter # Bowel Movements 3 - Exam PHYSICAL EXAM: GENERAL APPEARANCE: Patient is a well-developed, male who appears to be in no acute distress. HEENT: Normocephalic, atraumatic, no facial asymmetry is seen. Neck is supple with no masses felt. CARDIOVASCULAR: Regular rate and rhythm. ABDOMEN: Nontender, nondistended. EXTREMITIES: Show no edema or clubbing. NEUROLOGICAL EXAM: Patient is awake, alert, and oriented 3. Strength is full in all 4 extremities. Sensory exam to light touch is normal in all 4 extremities. No facial asymmetry is seen on cranial nerve testing. No tremors or seizure-like activity noted. - Labs CBC & Chem 7: 04/06/18 03:13 04/06/18 03:13 Labs: Abnormal Lab Results - Last 24 Hours (Table) 04/05/18 04/05/18 04/06/18 Range/Units 05:36 20:56 03:13 WBC 12.3 H (3.8-10.6) k/uL RBC 4.17 L (4.30-5.90) m/uL Hgb 12.2 L (13.0-17.5) gm/dL MCHC 30.7 L (31.0-37.0) g/dL Neutrophils # 11.1 H (1.3-7.7) k/uL Lymphocytes # 0.2 L (1.0-4.8) k/uL PT (9.0-12.0) sec INR (<1.2) Potassium 3.3 L (3.5-5.1) mmol/L Carbon Dioxide (22-30) mmol/L BUN (9-20) mg/dL Creatinine (0.66-1.25) mg/dL Glucose (74-99) mg/dL Calcium (8.4-10.2) mg/dL HSV I IgG Interpret POSITIVE H (NEGATIVE) 04/06/18 04/06/18 Range/Units 03:13 03:13 WBC (3.8-10.6) k/uL RBC (4.30-5.90) m/uL Hgb (13.0-17.5) gm/dL MCHC (31.0-37.0) g/dL Neutrophils # (1.3-7.7) k/uL Lymphocytes # (1.0-4.8) k/uL PT 14.2 H (9.0-12.0) sec INR 1.5 H (<1.2) Potassium 3.1 L (3.5-5.1) mmol/L Carbon Dioxide 33 H (22-30) mmol/L BUN 28 H (9-20) mg/dL Creatinine 1.26 H (0.66-1.25) mg/dL Glucose 149 H (74-99) mg/dL Calcium 8.2 L (8.4-10.2) mg/dL HSV I IgG Interpret (NEGATIVE) Microbiology - Last 24 Hours (Table) 04/03/18 13:45 Blood Culture - Preliminary Blood No Growth after 72 hours 04/03/18 04:55 Blood Culture - Preliminary Blood No Growth after 72 hours 04/03/18 05:00 Urine Culture - Final Urine,Catheterized Assessment and Plan (1) Altered mental status Current Visit: Yes Status: Acute Code(s): R41.82 - ALTERED MENTAL STATUS, UNSPECIFIED SNOMED Code(s): 009135600 (2) Delirium due to general medical condition Current Visit: Yes Status: Acute Code(s): F05 - DELIRIUM DUE TO KNOWN PHYSIOLOGICAL CONDITION SNOMED Code(s): 3700375 (3) Fever Current Visit: Yes Status: Acute Code(s): R50.9 - FEVER, UNSPECIFIED SNOMED Code(s): 936722679 (4) Acute headache Current Visit: No Status: Acute Code(s): R51 - HEADACHE SNOMED Code(s): 148822548 (5) Elevated troponin Current Visit: No Status: Acute Code(s): R79.89 - OTHER SPECIFIED ABNORMAL FINDINGS OF BLOOD CHEMISTRY SNOMED Code(s): 192067683 Plan: Recommendation: Patient's mental status has significantly improved. He continues to respond to antibiotics. Treatment plan was to do a lumbar puncture once his INR came down, however, patient has been on antibiotics for days and is responding well. No need for a lumbar puncture from neurological standpoint. We'll check with infectious disease on their opinion whether lumbar puncture is still needed or not. INR is 1.5 today. Infectious disease is following. Patient's repeat CT of the brain was negative for any acute process. EEG is pending. Blood pressure is with better control. Cardiology is following for congestive heart failure as well as cardiac arrhythmia. Adjustments in medications are being made. Continue neurological checks. I will continue to follow with you. Further recommendations following testing. I performed an examination of the patient and discussed the management with the CAST IRON DIPPER. I have reviewed the CAST IRON DIPPER notes and agree with the findings and plan of care.
--- NOTE | 2018-04-06 17:42 | EEG ---
ELECTROENCEPHALOGRAM REPORT DATE OF SERVICE: 04/06/2018 REASON FOR TESTING: Altered mental status. DESCRIPTION OF THE PROCEDURE: This EEG was performed using a 21-channel digital electroencephalograph, following international 10-20 system. DESCRIPTION OF THE RECORDING: From the beginning of the tracing, and with the patient's eyes closed, the background rhythm was mostly consisting of 8 Hz alpha frequency in the posterior occipital leads. No obvious asymmetry is seen. Occasional lead artifacts and movement artifacts are seen. Photic stimulation was performed with a minimal driving response seen. No pathological waves were elicited. Hyperventilation was not performed. The patient remains awake throughout the tracing. No epileptiform discharges were seen. His EKG lead showed an irregularly irregular rhythm with a normal rate. INTERPRETATION: This awake EEG can be considered within normal limits, except his EKG lead showed an irregularly irregular rhythm with a normal rate. No epileptiform discharges were seen. The absence of epileptiform discharges does not rule out the diagnosis of epilepsy; therefore clinical correlation is recommended. MMALE / DANUTAN: [id number] /
--- NOTE | 2018-04-06 19:48 | PN ---
PROGRESS NOTE DATE OF SERVICE: 04/06/2018 REASON FOR FOLLOWUP: Fever and mental status changes with a question of encephalitis. INTERVAL HISTORY: The patient is afebrile. He is more awake and alert, almost back to his baseline. The patient denies having any headache. No chest pain. No shortness of breath. Occasional cough. No abdominal pain and no diarrhea. PHYSICAL EXAMINATION: Blood pressure 122/90 with a pulse of 95, temperature 98.6. He is 95% on room air. General description is an elderly male up in the bed in no distress. RESPIRATORY SYSTEM: Unlabored breathing with decreased breath sounds at the base. No wheeze. HEART: S1, S2. Regular rate and rhythm. ABDOMEN: Soft. No tenderness. EXTREMITIES: No edema of the feet. LABS: Hemoglobin is 12.2, white count 12.3, BUN of 28, creatinine 1.26. DIAGNOSTIC IMPRESSION AND PLAN: Patient presented to hospital with significant headache and mental status changes, concern for encephalitis, possible herpes encephalitis. Unfortunately LP could not be completed because of his INR at 1.5, which has remained at the same level for the last 3 to 4 days. I clinically doubt bacterial meningitis. Vancomycin was discontinued yesterday. Will also discontinue the Rocephin. May give a short course of either acyclovir or Valtrex with close outpatient followup. Family was present at the bedside. Their questions were answered. MMODL / IJN: [id number] /
[2018-04-06] MEDS: clonazePAM 0.5 MG TAB PO SCH (22:40)
[2018-04-06] MEDS: ATORVASTATIN 10 MG TAB PO SCH (22:40)
[2018-04-06] MEDS: TAMSULOSIN 0.4 MG CAP.ER.24H PO SCH (22:40)
[2018-04-07 06:35] LABS: Basophils % (A) 0 %; Eosinophils % (A) 0 %; HCT 40.2 % (39.0-53.0); HGB 13.4 gm/dL (13.0-17.5); Lymphocytes # (A) 0.3 k/uL (1.0-4.8); Lymphocytes % (A) 3 %; MCH 30.8 pg (25.0-35.0); MCHC 33.2 g/dL (31.0-37.0); MCV 92.6 fL (80.0-100.0); Mean Platelet Volume 8.3; Monocytes # (A) 0.8 k/uL (0-1.0); Monocytes % (A) 8 %; Neutrophils # (A) 9.5 k/uL (1.3-7.7); Neutrophils % (A) 88 %; Platelet Count 224 k/uL (150-450); RBC 4.35 m/uL (4.30-5.90); RDW 15.5 % (11.5-15.5); WBC 10.8 k/uL (3.8-10.6)
--- NOTE | 2018-04-07 08:48 | P.PN ---
Subjective Progress Note Date: 04/06/18 This is a 72-year-old male one of Dr. Patel with a previous medical history significant for hypertension and hypertensive cardiovascular disease, hyperlipidemia, memory impairment, osteoarthritis, history of chronic systolic heart failure, atrial fibrillation, cardiomyopathy with prior AICD implantation , history of hiatal hernia status post Swapnil fundoplication, patient went and had pizza with his yesterday and he went to bed he woke up at 3:00 in the morning complain of severe headache associated with severe encephalopathy he could not follow much commands, his called EMS and the patient was brought into the ER at [facility] where he had a computed tomography scan of the brain that did not show any evidence of acute of normalities, patient also was was found to have a temperature of 101.5 rectally and the patient had negative urinalysis at the same time chest x-ray did not show any evidence of acute pneumonia according to the the patient was complaining of a dry cough over the last few days he was feeling congested a bit better than that there was no other abnormalities he was sitting with his nephew who traveled from [place] to see him and his nephew was not sick at all Kulwant there is no recent travel, there is no recent sick contacts according to the , we planned to do a lumbar puncture with the patient however his INR was 1.5 this will be placed on hold until 24 hours after his INR is down to 1.1 so the patient does not have any complications with spinal bleed. Patient will be seen in consultation by neurology as well as infectious disease, history of troponin was slightly elevated but I believe is due to the sepsis , I'm highly suspicious of viral encephalitis versus meningitis, and the patient need to have a lumbar puncture for evaluation of protein and cell count and culture along with encephalitis panel including West Nile virus. 04/06: Patient is found ambulating and standing in his room. His gait is steady. Balance appears normal. He states he only concern that he has not been able to sleep. He normally takes clonazepam at bedtime, 0.25 mg. We will change this to scheduled so that he will receive it. Plan is to discontinue Blackburn catheter. Patient has had marked improvement of his mental status over the weekend. Patient has been followed by multiple consultants including cardiology for acute on chronic systolic heart failure. He is currently on IV Lasix at 60 mg every 12 hours. Magnesium and potassium were replaced today by cardiology. They did add in amiodarone and AICD is to be interrogated. Lanoxin was discontinued and ALFRED inhibitor on hold to initiate Entresto. Dr. Conway has been following patient. Plan continues to be lumbar puncture once INR is down. Neurology states her is no need for lumbar puncture at this point and ID to make final determination. A repeat CAT scan of the brain was negative for any acute process. EEG is pending. Review Of Systems: Constitutional: No fever, no chills, no night sweats. No weight change. No weakness, fatigue or lethargy. No daytime sleepiness. EENT: No headache. No blurred vision or double vision, no loss of vision. No loss of Hearing, no ringing in the ears, no dizziness. No nasal drainage or congestion. No epistaxis. No sore throat. Lungs: No shortness of breath, cough, no sputum production. No wheezing. Cardiovascular: No chest pain, no lower extremity edema. No palpitations. No paroxysmal nocturnal dyspnea. No orthopnea. No lightheadedness or dizziness. No syncopal episodes. Abdominal: No abdominal pain. No nausea, vomiting. No diarrhea. No constipation. No bloody or tarry stools.. No loss of appetite. Genitourinary: No dysuria, increased frequency, urgency. No urinary retention. Musculoskeletal: No myalgias. No muscle weakness, no gait dysfunction, no frequent falls. No back pain. No neck pain. Integumentary: No wounds, no lesions. No rash or pruritus. No unusual bruising. No change in hair or nails. Neurologic: No aphasia. No facial droop. No change in mentation. No head injury. No headache. No paralysis. No paresthesia. Psychiatric: No depression. No anxiety. No mood swings. Complains of insomnia Endocrine: No abnormal blood sugars. No weight change. No excessive sweating or thirst. No cold intolerance. No weight change. Objective - Vital Signs Vital signs: Vital Signs Temp 98.2 F 04/06/18 12:00 Pulse 69 04/06/18 12:00 Resp 18 04/06/18 12:00 BP 98/76 04/06/18 12:00 Pulse Ox 96 04/06/18 12:00 Intake & Output 04/05/18 04/06/18 04/06/18 18:59 06:59 18:59 Intake Total 522 600 462 Output Total 1200 1000 Balance -678 -400 462 Intake: Oral 522 600 462 Output: Urine 1200 1000 Other: Voiding Method Indwelling Catheter Indwelling Catheter # Bowel Movements 3 - Exam Gen: This is a 72-year-old male. He is found walking in his room and appears to be comfortable and in no acute distress. Gait is steady. HEENT: Head is atraumatic, normocephalic. Pupils equal, round. Sclerae is anicteric. NECK: Supple. No JVD. No lymphadenopathy. No thyromegaly. LUNGS: Clear to auscultation. No wheezes or rhonchi. No intercostal retractions. HEART: Regular rate and rhythm. Systolic murmur. ICD in the left upper precordium. ABDOMEN: Soft. Bowel sounds are present. No masses. No tenderness. EXTREMITIES: No pedal edema. No calf tenderness. NEUROLOGICAL: Patient is awake, alert and oriented x3. Cranial nerves 2 through 12 are grossly intact. - Labs CBC & Chem 7: 04/07/18 05:52 04/06/18 03:13 Labs: Abnormal Lab Results - Last 24 Hours (Table) 04/05/18 04/05/18 04/06/18 Range/Units 05:36 20:56 03:13 WBC 12.3 H (3.8-10.6) k/uL RBC 4.17 L (4.30-5.90) m/uL Hgb 12.2 L (13.0-17.5) gm/dL MCHC 30.7 L (31.0-37.0) g/dL Neutrophils # 11.1 H (1.3-7.7) k/uL Lymphocytes # 0.2 L (1.0-4.8) k/uL PT (9.0-12.0) sec INR (<1.2) Potassium 3.3 L (3.5-5.1) mmol/L Carbon Dioxide (22-30) mmol/L BUN (9-20) mg/dL Creatinine (0.66-1.25) mg/dL Glucose (74-99) mg/dL Calcium (8.4-10.2) mg/dL HSV I IgG Interpret POSITIVE H (NEGATIVE) 04/06/18 04/06/18 Range/Units 03:13 03:13 WBC (3.8-10.6) k/uL RBC (4.30-5.90) m/uL Hgb (13.0-17.5) gm/dL MCHC (31.0-37.0) g/dL Neutrophils # (1.3-7.7) k/uL Lymphocytes # (1.0-4.8) k/uL PT 14.2 H (9.0-12.0) sec INR 1.5 H (<1.2) Potassium 3.1 L (3.5-5.1) mmol/L Carbon Dioxide 33 H (22-30) mmol/L BUN 28 H (9-20) mg/dL Creatinine 1.26 H (0.66-1.25) mg/dL Glucose 149 H (74-99) mg/dL Calcium 8.2 L (8.4-10.2) mg/dL HSV I IgG Interpret (NEGATIVE) Microbiology - Last 24 Hours (Table) 04/03/18 04:55 Blood Culture - Preliminary Blood No Growth after 72 hours 04/03/18 13:45 Blood Culture - Preliminary Blood No Growth after 48 hours 04/03/18 05:00 Urine Culture - Final Urine,Catheterized Assessment and Plan Plan: 1. Severe metabolic encephalopathy with acute febrile illness with possible viral meningitis doubt bacterial meningitis. Continue IV Rocephin and IV acyclovir, ID consultation and neurology consultation appreciated. Coumadin is on hold but neurology has stated that is not necessary at this point. Will await ID decision. INR today is at 1.5. Continue stress dose of steroid. Patient has been resumed on Florinef. 2. Elevated troponin without evidence of acute ischemia. Cardiology consultation. 3. Acute on chronic systolic heart failure with severe nonischemic cardiomyopathy . Continue IV Lasix 60 mg daily and Aldactone 25 mg daily, Coreg 12.5 mg twice daily. ALFRED inhibitor is on hold to start Entresto. Cardiology consult appreciated. Potassium and magnesium replaced. 4. Hypertension and hypertensive cardiovascular disease. Patient will be started on Entresto on April 09. ALFRED inhibitor discontinued. 5. Hyperlipidemia. Lipitor 10 mg at bedtime. 6. Chronic persistent atrial fibrillation. Coumadin on hold for possible lumbar puncture. Continue Coreg 12.5 mg twice daily. 7. Hypophosphatemia. Status post replacement. 8. Gastroesophageal reflux disease and hiatal hernia status post Swapnil fundoplication. We will continue with Protonix 40 mg daily. 9. Benign prostatic hypertrophy. Continue Flomax. 10. History of pulmonary sarcoidosis stable at this point in time. 12. DVT prophylaxis. Continue Lovenox 40 mg subcutaneously every 24 hours. 13. GI prophylaxis. Continue with PPI. CODE STATUS: No code. Discharge plan: To be determined Impression and plan of care have been directed as dictated by the signing physician. Luma Mancera nurse practitioner acting as scribe for signing physician.
[2018-04-07] MEDS: SPIRONOLACTONE 25 MG TAB PO SCH ×2 (09:17→20:10)
[2018-04-07] MEDS: MAGNESIUM OXIDE 400 MG TAB PO SCH ×2 (09:17→20:10)
[2018-04-07] MEDS: POTASSIUM CHLORIDE ER 20 MEQ TAB.ER PO SCH ×3 (09:17→22:41)
[2018-04-07] MEDS: LEVOTHYROXINE 25 MCG TAB PO SCH (09:17)
[2018-04-07] MEDS: CARVEDILOL 12.5 MG TAB PO SCH (09:17)
[2018-04-07] MEDS: CITALOPRAM HYDROBROMIDE 20 MG TAB PO SCH ×2 (09:17→20:09)
[2018-04-07] MEDS: DICYCLOMINE 20 MG TAB PO SCH ×3 (09:17→17:50)
[2018-04-07] MEDS: PANTOPRAZOLE 40 MG TABLET PO SCH (09:17)
[2018-04-07] MEDS: FUROSEMIDE 10 MG/ML 10 ML VIAL IV SCH ×2 (09:18→20:10)
[2018-04-07] MEDS: ENOXAPARIN 40 MG/0.4 ML SYRINGE SQ SCH (09:18)
[2018-04-07] MEDS: FINASTERIDE 5 MG TAB PO SCH (09:18)
[2018-04-07] MEDS: cefTRIAXone 2,000 MG in SODIUM CHLORIDE 0.9% 100 ML IVPB SCH (09:19)
[2018-04-07] MEDS: FLUDROCORTISONE 0.1 MG TAB PO SCH ×2 (09:26→20:09)
[2018-04-07] MEDS: HYDROCORTISONE SUCCINATE 100 MG/2 ML VIAL IV SCH (09:30)
[2018-04-07] MEDS: ACYCLOVIR SODIUM 800 MG in SODIUM CHLORIDE 0.9% 250 ML IV SCH ×2 (09:30→20:01)
[2018-04-07 10:04] LABS: INR 1.2 (<1.2); Prothrombin Time 11.6 sec (9.0-12.0)
--- NOTE | 2018-04-07 13:08 | XR ---
EXAMINATION TYPE: XR chest 2V DATE OF EXAM: 04/07/2018 COMPARISON: 04/04/2018 HISTORY: Congestive heart failure TECHNIQUE: Frontal and lateral views of the chest are obtained. FINDINGS: There is been marked interval improvement in the previously seen interstitial and alveolar pulmonary edema. Again there is pulmonary hyperinflation indicative of underlying COPD. Right latera l possible pleural thickening is seen along the right upper lung. There is marked four-chamber cardio megaly and single left-sided cardiac device is seen on the prior. Mild osseous demineralization is se en throughout. IMPRESSION: 1. Marked interval improvement in pulmonary aeration with resolution of the previously seen alveolar and interstitial edema. Four-chamber cardiomegaly remains. 2. Right upper lung pleural thickening. CT thorax could further assess this finding. 3. Underlying pulmonary emphysema.
[2018-04-07] MEDS ORDERED: DEXTROSE 5% IN WATER 100 ML with AMIODARONE 150 MG IV ONE (13:27)
[2018-04-07 14:30] LABS: Albumin 3.2 g/dL (3.5-5.0); Calcium 8.5 mg/dL (8.4-10.2); Potassium 2.9 mmol/L (3.5-5.1); Total Bilirubin 0.6 mg/dL (0.2-1.3); Total Protein 6.1 g/dL (6.3-8.2)
[2018-04-07 15:01] VITALS: BMI 19.1
--- NOTE | 2018-04-07 15:17 | P.PN ---
Subjective Progress Note Date: 04/07/18 This is a 72-year-old male one of Dr. Patel with a previous medical history significant for hypertension and hypertensive cardiovascular disease, hyperlipidemia, memory impairment, osteoarthritis, history of chronic systolic heart failure, atrial fibrillation, cardiomyopathy with prior AICD implantation , history of hiatal hernia status post Swapnil fundoplication, patient went and had pizza with his yesterday and he went to bed he woke up at 3:00 in the morning complain of severe headache associated with severe encephalopathy he could not follow much commands, his called EMS and the patient was brought into the ER at [facility] where he had a computed tomography scan of the brain that did not show any evidence of acute of normalities, patient also was was found to have a temperature of 101.5 rectally and the patient had negative urinalysis at the same time chest x-ray did not show any evidence of acute pneumonia according to the the patient was complaining of a dry cough over the last few days he was feeling congested a bit better than that there was no other abnormalities he was sitting with his nephew who traveled from [place] to see him and his nephew was not sick at all Kulwant there is no recent travel, there is no recent sick contacts according to the , we planned to do a lumbar puncture with the patient however his INR was 1.5 this will be placed on hold until 24 hours after his INR is down to 1.1 so the patient does not have any complications with spinal bleed. Patient will be seen in consultation by neurology as well as infectious disease, history of troponin was slightly elevated but I believe is due to the sepsis , I'm highly suspicious of viral encephalitis versus meningitis, and the patient need to have a lumbar puncture for evaluation of protein and cell count and culture along with encephalitis panel including West Nile virus. 04/06: Patient is found ambulating and standing in his room. His gait is steady. Balance appears normal. He states he only concern that he has not been able to sleep. He normally takes clonazepam at bedtime, 0.25 mg. We will change this to scheduled so that he will receive it. Plan is to discontinue Blackburn catheter. Patient has had marked improvement of his mental status over the weekend. Patient has been followed by multiple consultants including cardiology for acute on chronic systolic heart failure. He is currently on IV Lasix at 60 mg every 12 hours. Magnesium and potassium were replaced today by cardiology. They did add in amiodarone and AICD is to be interrogated. Lanoxin was discontinued and ALFRED inhibitor on hold to initiate Entresto. Dr. Conway has been following patient. Plan continues to be lumbar puncture once INR is down. Neurology states her is no need for lumbar puncture at this point and ID to make final determination. A repeat CAT scan of the brain was negative for any acute process. EEG is pending. 04/07: EEG was found to be in normal limits although it showed irregularly irregular rhythm with a normal rate. No epileptiform discharges were seen. Dr. Staley has discontinue vancomycin and Rocephin and plan for short course of acyclovir or Valtrex with follow-up in the outpatient setting. Dr. Staley is in agreement to cancel LP. He is planning for midline placement and IV acyclovir for 2 week course as an outpatient. We will resume the patient back on Coumadin. Anticipate discharge in the next 24 hours. The patient denies any new complaints. He states he is eating and drinking well. He denies having any chest pain. He is complaining of lack of sleep. He did receive clonazepam last evening at his home dose. Review Of Systems: Constitutional: No fever, no chills, no night sweats. No weight change. No weakness, fatigue or lethargy. No daytime sleepiness. EENT: No headache. No blurred vision or double vision, no loss of vision. No loss of Hearing, no ringing in the ears, no dizziness. No nasal drainage or congestion. No epistaxis. No sore throat. Lungs: No shortness of breath, cough, no sputum production. No wheezing. Cardiovascular: No chest pain, no lower extremity edema. No palpitations. No paroxysmal nocturnal dyspnea. No orthopnea. No lightheadedness or dizziness. No syncopal episodes. Abdominal: No abdominal pain. No nausea, vomiting. No diarrhea. No constipation. No bloody or tarry stools.. No loss of appetite. Genitourinary: No dysuria, increased frequency, urgency. No urinary retention. Musculoskeletal: No myalgias. No muscle weakness, no gait dysfunction, no frequent falls. No back pain. No neck pain. Integumentary: No wounds, no lesions. No rash or pruritus. No unusual bruising. No change in hair or nails. Neurologic: No aphasia. No facial droop. No change in mentation. No head injury. No headache. No paralysis. No paresthesia. Psychiatric: No depression. No anxiety. No mood swings. Complains of insomnia Endocrine: No abnormal blood sugars. No weight change. No excessive sweating or thirst. No cold intolerance. No weight change. Objective - Vital Signs Vital signs: Vital Signs Temp 96.2 F L 04/07/18 00:00 Pulse 63 04/07/18 04:00 Resp 18 04/07/18 04:00 BP 132/77 04/07/18 04:00 Pulse Ox 98 04/07/18 04:00 Intake & Output 04/06/18 04/07/18 04/07/18 18:59 06:59 18:59 Intake Total 924 Output Total 450 900 Balance 474 -900 Weight 64.1 kg Intake: Oral 924 Output: Urine 450 900 Uretheral (Blackburn) 450 Other: Voiding Method Indwelling Catheter Toilet Urinal - Exam Gen: This is a 72-year-old male. He is found in wheelchair and appears to be comfortable and in no acute distress. HEENT: Head is atraumatic, normocephalic. Pupils equal, round. Sclerae is anicteric. NECK: Supple. No JVD. No lymphadenopathy. No thyromegaly. LUNGS: Clear to auscultation. No wheezes or rhonchi. No intercostal retractions. HEART: Regular rate and rhythm. Systolic murmur. ICD in the left upper precordium. ABDOMEN: Soft. Bowel sounds are present. No masses. No tenderness. EXTREMITIES: No pedal edema. No calf tenderness. NEUROLOGICAL: Patient is awake, alert and oriented x3. Cranial nerves 2 through 12 are grossly intact. - Labs CBC & Chem 7: 04/07/18 05:52 04/07/18 05:52 Labs: Abnormal Lab Results - Last 24 Hours (Table) 04/05/18 04/07/18 Range/Units 05:36 05:52 WBC 10.8 H (3.8-10.6) k/uL Neutrophils # 9.5 H (1.3-7.7) k/uL Lymphocytes # 0.3 L (1.0-4.8) k/uL HSV I IgG Interpret POSITIVE H (NEGATIVE) Microbiology - Last 24 Hours (Table) 04/03/18 13:45 Blood Culture - Preliminary Blood No Growth after 72 hours 04/03/18 04:55 Blood Culture - Preliminary Blood No Growth after 72 hours Assessment and Plan Plan: 1. Severe metabolic encephalopathy with acute febrile illness with possible viral meningitis doubt bacterial meningitis. Continue IV Rocephin and IV acyclovir, ID consultation and neurology consultation appreciated. Coumadin will be resumed. No LP. Continue stress dose of steroid. Patient has been resumed on Florinef. 2. Elevated troponin without evidence of acute ischemia. Cardiology consultation. 3. Acute on chronic systolic heart failure with severe nonischemic cardiomyopathy . Continue IV Lasix 60 mg daily and Aldactone 25 mg daily, Coreg 12.5 mg twice daily. ALFRED inhibitor is on hold to start Entresto. Cardiology consult appreciated. Potassium and magnesium replaced. 4. Hypertension and hypertensive cardiovascular disease. Patient will be started on Entresto on April 09. ALFRED inhibitor discontinued. 5. Hyperlipidemia. Lipitor 10 mg at bedtime. 6. Chronic persistent atrial fibrillation. Coumadin on hold for possible lumbar puncture. Continue Coreg 12.5 mg twice daily. 7. Hypophosphatemia. Status post replacement. 8. Gastroesophageal reflux disease and hiatal hernia status post Swapnil fundoplication. We will continue with Protonix 40 mg daily. 9. Benign prostatic hypertrophy. Continue Flomax. 10. History of pulmonary sarcoidosis stable at this point in time. 12. DVT prophylaxis. Continue Lovenox 40 mg subcutaneously every 24 hours. 13. GI prophylaxis. Continue with PPI. CODE STATUS: No code. Discharge plan: Home with home care in the next 24 hours Impression and plan of care have been directed as dictated by the signing physician. Luma Mancera nurse practitioner acting as scribe for signing physician.
[2018-04-07] MEDS ORDERED: POTASSIUM CHLORIDE ER 20 MEQ TAB.ER PO STA (15:24)
[2018-04-07] MEDS: AMIODARONE 450 MG in DEXTROSE 5% IN WATER 250 ML IV SCH ×4 (16:01→22:41)
[2018-04-07] MEDS: MAGNESIUM SULFATE-D5W PMX 1 GM in DEXTROSE/WATER 1 100ML.BAG IVPB SCH ×2 (16:08→17:08)
[2018-04-07] MEDS: POTASSIUM CHLORIDE 20 MEQ in WATER FOR INJECTION 1 100ML.BAG IVPB SCH ×3 (16:08→21:58)
--- NOTE | 2018-04-07 16:11 | P.PN ---
Subjective Progress Note Date: 04/07/18 This is a pleasant 72-year-old male past medical history significant for chronic persistent atrial fibrillation on long-term anticoagulation, nonischemic cardiomyopathy, chronic systolic heart failure, dyslipidemia, hypertension, valvular heart disease, status post single chamber ICD, chronic kidney disease and history of ventricular fibrillation. He follows with Dr. Cárdenas in the office. We have been asked to see him in consultation for elevated troponin. He was brought to the hospital on 1116 for symptoms of altered mental status, fever and has been diagnosed with severe metabolic encephalopathy. CT of the brain has been performed and is negative for an acute intracranial abnormality. Patient has been receiving IV diuretics for congestive heart failure. Last documented ejection fraction 25%. On review of the rhythm strips, it appears that the patient had runs of nonsustained ventricular tachycardia and with anti-tachycardia pacing, was paced out of it. Patient was on Lanoxin which we'll discontinue today. He on IV Lasix. We will discontinue the ALFRED inhibitor and start the patient on an intestinal from . Potassium today is 3.1, which is being replaced. Magnesium 1.6, we will also give replacement for that. We'll start the patient on oral amiodarone as well. The chest x-ray tomorrow. 04/07/2018 Patient seen and examined today, sitting up in the chair at bedside. His device was interrogated and did reveal episodes of ventricular tachycardia and ventricular fibrillation which was non-halted by ATP, he did subsequently receive AICD shock. We did start him on amiodarone today IV, it was also noted that his potassium and magnesium remains low today so he's getting replacement for that as well. Chest x-ray showed marked improvement in pulmonary irritation with resolution of previously seen interstitial edema. Let pressure 122/70 with a heart rate in the 60s, 93% on room air. Blood cell count 10.8, hemoglobin 13.4, platelet count 224. Sodium 140, potassium 2.9, BUN 33, creatinine 1.2. Patient's main complaint today is that he has not been sleeping for the past few nights. Objective - Vital Signs Vital signs: Vital Signs Temp 97.1 F L 04/07/18 08:00 Pulse 60 04/07/18 08:00 Resp 18 04/07/18 04:00 BP 123/71 04/07/18 08:00 Pulse Ox 93 L 04/07/18 08:00 Intake & Output 04/06/18 04/07/18 04/07/18 18:59 06:59 18:59 Intake Total 924 502 Output Total 450 900 Balance 474 -900 502 Weight 64.1 kg 64.1 kg Intake: Intake, IV Titration 100 Amount cefTRIAXone 2,000 mg In 100 Sodium Chloride 0.9% 100 ml @ 100 mls/hr IVPB Q12HR [facility] Rx#:[id number] Oral 924 402 Output: Urine 450 900 Uretheral (Blackburn) 450 Other: Voiding Method Indwelling Catheter Toilet Urinal - Exam Blood pressure 112/68 heart rate 69 afebrile maintaining oxygen saturation on nasal cannula GENERAL: This is a 72-year-old male in mild respiratory distress at the time of my examination. HEENT: Head is atraumatic, normocephalic. Pupils are equal, round. Sclerae anicteric. Conjunctivae are clear. Mucous membranes of the mouth are moist. Neck is supple. There is mild jugular venous distention. No carotid bruit is heard. LUNGS: Coarse rales and rhonchi noted throughout bilateral lung peters. No wheezes noted. No chest wall tenderness is noted on palpation or with deep breathing. HEART: Irregular rate and rhythm with systolic ejection murmur at the left sternal border, no rubs or gallops. S1 and S2 heard. ABDOMEN: Soft, nontender. Bowel sounds are heard. No organomegaly noted. EXTREMITIES: No evidence of peripheral edema and no calf tenderness noted. VASCULAR: Radial and dorsalis pedis pulses palpated, no evidence of clubbing. NEUROLOGIC: Patient is awake and alert but no conversating appropriately. - Labs CBC & Chem 7: 04/07/18 05:52 04/07/18 05:52 Labs: Abnormal Lab Results - Last 24 Hours (Table) 04/07/18 04/07/18 04/07/18 Range/Units 05:52 05:52 09:01 WBC 10.8 H (3.8-10.6) k/uL Neutrophils # 9.5 H (1.3-7.7) k/uL Lymphocytes # 0.3 L (1.0-4.8) k/uL INR 1.2 H (<1.2) Potassium 2.9 L (3.5-5.1) mmol/L Carbon Dioxide 32 H (22-30) mmol/L BUN 33 H (9-20) mg/dL Creatinine 1.26 H (0.66-1.25) mg/dL Glucose 169 H (74-99) mg/dL Total Protein 6.1 L (6.3-8.2) g/dL Albumin 3.2 L (3.5-5.0) g/dL Microbiology - Last 24 Hours (Table) 04/03/18 13:45 Blood Culture - Preliminary Blood No Growth after 96 hours 04/03/18 04:55 Blood Culture - Preliminary Blood No Growth after 96 hours Assessment and Plan Plan: ASSESSMENT and plan #1 Acute on chronic systolic heart failure, last known ejection fraction 25% status post AICD #2 Acute metabolic encephalopathy awaiting lumbar puncture #3 Meningitis, likely viral #4 Chronic persistent atrial fibrillation on long-term anticoagulation with Coumadin. #5 Nonischemic cardiomyopathy #6 Dyslipidemia #7 nonsustained ventricular tachycardia, halted by AICD discharge Plan We will continue current dose of IV Lasix. We will also add amiodarone to the patient's medication regime, replace potassium and magnesium. Patient will also be initiated on Entresto from the . We will also prescribe something for the patient to get to sleep tonight. DNP note has been reviewed, I agree with a documented findings and plan of care. Patient was seen and examined.
[2018-04-07] MEDS ORDERED: WARFARIN 5 MG TAB PO ONE (18:00)
[2018-04-07] MEDS: clonazePAM 0.5 MG TAB PO SCH (20:09)
[2018-04-07] MEDS: ATORVASTATIN 10 MG TAB PO SCH (20:09)
[2018-04-07] MEDS: HYDROCORTISONE 10 MG TAB PO SCH (20:10)
[2018-04-07] MEDS: TAMSULOSIN 0.4 MG CAP.ER.24H PO SCH (20:10)
[2018-04-07] MEDS ORDERED: ZOLPIDEM 5 MG TAB PO SCH (21:00)
[2018-04-07] MEDS ORDERED: HYDROCORTISONE 20 MG TAB PO SCH (21:00)
[2018-04-07] MEDS ORDERED: Potassium Replacement Protocol 1 EACH MISC MISCELLANE PRN (21:51)
--- NOTE | 2018-04-07 23:18 | PN ---
PROGRESS NOTE DATE OF SERVICE: 04/07/2018. 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 INTERVAL HISTORY: The patient is afebrile. He has been breathing comfortably. Denies having any chest pain or shortness of breath. Very minimal cough. No nausea, vomiting. No abdominal pain and no diarrhea. EXAMINATION: Blood pressure 117/83 with a pulse of 76, temperature 97.8. He is 94% on room air. General description is an elderly male up in the bed in no distress. Respiratory system: Unlabored breathing, clear to auscultation anteriorly. Heart S1, S2. Regular rate and rhythm. Abdomen soft. No tenderness. Extremities: No edema of the feet. LABS: Hemoglobin 13.4, white count 10.8. BUN of 33, creatinine is 1.26. Blood culture has been negative. The patient came back positive. 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 Unfortunately, [employer] could not be completed as the patient INR was elevated. However, clinically responded to the acyclovir. Dose has been adjusted to 800 mg q.12 because of his kidney function. Per the pharmacy, we will obtain a midline and to continue the patient on IV Acyclovir for at least 2 more weeks to finish a course of therapy with careful monitoring of his kidney function in the outpatient setting. Once the antibiotics are arranged, she should be able to go home from Infectious Disease standpoint. Plan of care was discussed with the admitting team. MARGARET / MERARY: [id number] /
[2018-04-08] MEDS: LEVOTHYROXINE 25 MCG TAB PO SCH (06:20)
[2018-04-08] MEDS: PANTOPRAZOLE 40 MG TABLET PO SCH (06:20)
[2018-04-08] MEDS: CARVEDILOL 6.25 MG TAB PO SCH ×2 (06:20→15:13)
[2018-04-08] MEDS: DICYCLOMINE 20 MG TAB PO SCH ×2 (06:20→15:13)
[2018-04-08 06:56] LABS: Basophils % (A) 0 %; Eosinophils # (A) 0.1 k/uL (0-0.7); Eosinophils % (A) 1 %; HCT 38.1 % (39.0-53.0); Lymphocytes # (A) 0.8 k/uL (1.0-4.8); Lymphocytes % (A) 8 %; MCH 29.3 pg (25.0-35.0); MCHC 31.4 g/dL (31.0-37.0); MCV 93.5 fL (80.0-100.0); Mean Platelet Volume 8.1; Monocytes # (A) 0.9 k/uL (0-1.0); Monocytes % (A) 9 %; Neutrophils % (A) 81 %; Platelet Count 221 k/uL (150-450); RBC 4.08 m/uL (4.30-5.90); RDW 15.7 % (11.5-15.5); WBC 9.8 k/uL (3.8-10.6)
[2018-04-08 07:02] LABS: INR 1.2 (<1.2); Prothrombin Time 11.8 sec (9.0-12.0)
[2018-04-08 07:14] LABS: Albumin 2.6 g/dL (3.5-5.0); Potassium 3.1 mmol/L (3.5-5.1); Total Bilirubin 0.6 mg/dL (0.2-1.3); Total Protein 5.1 g/dL (6.3-8.2)
[2018-04-08] MEDS: AMIODARONE 450 MG in DEXTROSE 5% IN WATER 250 ML IV SCH ×4 (08:57→14:42)
[2018-04-08] MEDS: FLUDROCORTISONE 0.1 MG TAB PO SCH (09:04)
[2018-04-08] MEDS: SPIRONOLACTONE 25 MG TAB PO SCH (09:04)
[2018-04-08] MEDS: POTASSIUM CHLORIDE ER 20 MEQ TAB.ER PO SCH ×2 (09:04)
[2018-04-08] MEDS: MAGNESIUM OXIDE 400 MG TAB PO SCH (09:04)
[2018-04-08] MEDS: ENOXAPARIN 40 MG/0.4 ML SYRINGE SQ SCH (09:04)
[2018-04-08] MEDS: FINASTERIDE 5 MG TAB PO SCH (09:04)
[2018-04-08] MEDS: HYDROCORTISONE 10 MG TAB PO SCH (09:04)
[2018-04-08] MEDS: FUROSEMIDE 10 MG/ML 10 ML VIAL IV SCH (09:04)
[2018-04-08] MEDS: CITALOPRAM HYDROBROMIDE 20 MG TAB PO SCH (09:04)
[2018-04-08] MEDS: ACYCLOVIR SODIUM 800 MG in SODIUM CHLORIDE 0.9% 250 ML IV SCH (09:05)
[2018-04-08 09:12] VITALS: BP 109/59; PULSE 68; TEMP 97.3
[2018-04-08] MEDS ORDERED: POTASSIUM CHLORIDE ER 20 MEQ TAB.ER PO STA (10:26)
[2018-04-08] MEDS ORDERED: POTASSIUM CHLORIDE ER 20 MEQ TAB.ER PO SCH (12:00)
--- NOTE | 2018-04-08 12:34 | P.PN ---
Subjective Progress Note Date: 04/08/18 This is a pleasant 72-year-old male past medical history significant for chronic persistent atrial fibrillation on long-term anticoagulation, nonischemic cardiomyopathy, chronic systolic heart failure, dyslipidemia, hypertension, valvular heart disease, status post single chamber ICD, chronic kidney disease and history of ventricular fibrillation. He follows with Dr. Cárdenas in the office. We have been asked to see him in consultation for elevated troponin. He was brought to the hospital on 111 for symptoms of altered mental status, fever and has been diagnosed with severe metabolic encephalopathy. CT of the brain has been performed and is negative for an acute intracranial abnormality. Patient has been receiving IV diuretics for congestive heart failure. Last documented ejection fraction 25%. On review of the rhythm strips, it appears that the patient had runs of nonsustained ventricular tachycardia and with anti-tachycardia pacing, was paced out of it. Patient was on Lanoxin which we'll discontinue today. He on IV Lasix. We will discontinue the ALFRED inhibitor and start the patient on an intestinal from . Potassium today is 3.1, which is being replaced. Magnesium 1.6, we will also give replacement for that. We'll start the patient on oral amiodarone as well. The chest x-ray tomorrow. 04/07/2018 Patient seen and examined today, sitting up in the chair at bedside. His device was interrogated and did reveal episodes of ventricular tachycardia and ventricular fibrillation which was non-halted by ATP, he did subsequently receive AICD shock. We did start him on amiodarone today IV, it was also noted that his potassium and magnesium remains low today so he's getting replacement for that as well. Chest x-ray showed marked improvement in pulmonary irritation with resolution of previously seen interstitial edema. Blood pressure 122/70 with a heart rate in the 60s, 93% on room air. Blood cell count 10.8, hemoglobin 13.4, platelet count 224. Sodium 140, potassium 2.9, BUN 33, creatinine 1.2. Patient's main complaint today is that he has not been sleeping for the past few nights. 04/08/2018 Patient seen and examined this morning, sitting up in the chair at bedside. Family also present. He apparently became quite confused on night last night, removed his midline IV. He does state however that he slept much better last night, at least 5-6 hours. His blood pressure this morning 110/60 with a heart rate in the 60s 94% on room air. Hemoglobin 12.0, white blood cell count 9.8, platelet count 221. Sodium 141, potassium 3.1, BUN 32, creatinine 1.2. Repeat chest x-ray showed marked interval improvement in pulmonary irritation with resolution of previously seen LB alveolar and interstitial edema. We will discontinue the IV Lasix today we will start the patient on oral diuretics, 80 mg by mouth twice a day. Replace potassium. No arrhythmias have been noted on the monitor in the past 24 hours. Objective - Vital Signs Vital signs: Vital Signs Temp 97.3 F L 04/08/18 08:00 Pulse 68 04/08/18 08:00 Resp 18 04/08/18 08:00 BP 109/59 04/08/18 08:00 Pulse Ox 94 L 04/08/18 08:00 Intake & Output 04/07/18 04/08/18 04/08/18 18:59 06:59 18:59 Intake Total 702 215.233 Output Total 400 3 Balance 302 212.233 Weight 64.1 kg 66 kg Intake: Intake, IV Titration 100 215.233 Amount Amiodarone 450 mg In 215.233 Dextrose 5% in Water 250 ml @ 1 MG/MIN 34.53 mls/ hr IV .[id number] RADHA Rx#: [id number] cefTRIAXone 2,000 mg In 100 Sodium Chloride 0.9% 100 ml @ 100 mls/hr IVPB Q12HR RADHA Rx#:[id number] Oral 602 Output: Urine 400 3 Other: Voiding Method Toilet Toilet Urinal Urinal # Voids 3 - Exam Blood pressure 112/68 heart rate 69 afebrile maintaining oxygen saturation on nasal cannula GENERAL: This is a 72-year-old male in mild respiratory distress at the time of my examination. HEENT: Head is atraumatic, normocephalic. Pupils are equal, round. Sclerae anicteric. Conjunctivae are clear. Mucous membranes of the mouth are moist. Neck is supple. There is mild jugular venous distention. No carotid bruit is heard. LUNGS: Coarse rales and rhonchi noted throughout bilateral lung peters. No wheezes noted. No chest wall tenderness is noted on palpation or with deep breathing. HEART: Irregular rate and rhythm with systolic ejection murmur at the left sternal border, no rubs or gallops. S1 and S2 heard. ABDOMEN: Soft, nontender. Bowel sounds are heard. No organomegaly noted. EXTREMITIES: No evidence of peripheral edema and no calf tenderness noted. VASCULAR: Radial and dorsalis pedis pulses palpated, no evidence of clubbing. NEUROLOGIC: Patient is awake and alert but no conversating appropriately. - Labs CBC & Chem 7: 04/08/18 06:28 04/08/18 06:28 Labs: Abnormal Lab Results - Last 24 Hours (Table) 04/07/18 04/08/18 04/08/18 Range/Units 05:52 06:28 06:28 RBC 4.08 L (4.30-5.90) m/uL Hgb 12.0 L (13.0-17.5) gm/dL Hct 38.1 L (39.0-53.0) % RDW 15.7 H (11.5-15.5) % Neutrophils # 8.0 H (1.3-7.7) k/uL Lymphocytes # 0.8 L (1.0-4.8) k/uL INR (<1.2) Potassium 2.9 L 3.1 L (3.5-5.1) mmol/L Carbon Dioxide 32 H 37 H (22-30) mmol/L BUN 33 H 32 H (9-20) mg/dL Creatinine 1.26 H 1.27 H (0.66-1.25) mg/dL Glucose 169 H (74-99) mg/dL Calcium 8.0 L (8.4-10.2) mg/dL Alkaline Phosphatase 36 L (38-126) U/L Total Protein 6.1 L 5.1 L (6.3-8.2) g/dL Albumin 3.2 L 2.6 L (3.5-5.0) g/dL 04/08/18 Range/Units 06:28 RBC (4.30-5.90) m/uL Hgb (13.0-17.5) gm/dL Hct (39.0-53.0) % RDW (11.5-15.5) % Neutrophils # (1.3-7.7) k/uL Lymphocytes # (1.0-4.8) k/uL INR 1.2 H (<1.2) Potassium (3.5-5.1) mmol/L Carbon Dioxide (22-30) mmol/L BUN (9-20) mg/dL Creatinine (0.66-1.25) mg/dL Glucose (74-99) mg/dL Calcium (8.4-10.2) mg/dL Alkaline Phosphatase (38-126) U/L Total Protein (6.3-8.2) g/dL Albumin (3.5-5.0) g/dL Microbiology - Last 24 Hours (Table) 04/03/18 04:55 Blood Culture - Preliminary Blood No Growth after 120 hours 04/03/18 13:45 Blood Culture - Preliminary Blood No Growth after 96 hours Assessment and Plan Plan: ASSESSMENT and plan #1 Acute on chronic systolic heart failure, last known ejection fraction 25% status post AICD #2 Acute metabolic encephalopathy awaiting lumbar puncture #3 Meningitis, likely viral #4 Chronic persistent atrial fibrillation on long-term anticoagulation with Coumadin. #5 Nonischemic cardiomyopathy #6 Dyslipidemia #7 nonsustained ventricular tachycardia, halted by AICD discharge Plan We will discontinue the IV Lasix and start the patient on oral diuretics. Replace potassium. Check lytes BUN and creatinine in the morning. DNP note has been reviewed, I agree with a documented findings and plan of care. Patient was seen and examined.
--- NOTE | 2018-04-08 14:42 | P.DS ---
Providers Date of admission: 04/03/18 06:25 Expected date of discharge: 04/08/18 Attending physician: Merritt Patel Consults: 04/03/18 06:47 Consult Physician Routine Consulting Provider: Lis Cárdenas Consult Reason/Comments: elevTrop Do you want consulting provider notified?: Yes Consult Physician Urgent Consulting Provider: Mireille Staley Consult Reason/Comments: fever Do you want consulting provider notified?: Yes 04/03/18 11:41 Consult Physician Routine Consulting Provider: Daysi Christopher Consult Reason/Comments: icu management Do you want consulting provider notified?: Yes Consult Physician Routine Consulting Provider: Jayant Conway Consult Reason/Comments: metabolic encephalopathy Do you want consulting provider notified?: Yes 04/03/18 13:21 Consult to Anesthesia Stat Consulting Provider: Anesthesia,Services Consult Reason/Comments: Stat diagnostic LP Primary care physician: [facility] Course: This is a 72-year-old male one of Dr. Patel with a previous medical history significant for hypertension and hypertensive cardiovascular disease, hyperlipidemia, memory impairment, osteoarthritis, history of chronic systolic heart failure, atrial fibrillation, cardiomyopathy with prior AICD implantation , history of hiatal hernia status post Swapnil fundoplication, patient went and had pizza with his yesterday and he went to bed he woke up at 3:00 in the morning complain of severe headache associated with severe encephalopathy he could not follow much commands, his called EMS and the patient was brought into the ER at [facility] where he had a computed tomography scan of the brain that did not show any evidence of acute of normalities, patient also was was found to have a temperature of 101.5 rectally and the patient had negative urinalysis at the same time chest x-ray did not show any evidence of acute pneumonia according to the the patient was complaining of a dry cough over the last few days he was feeling congested a bit better than that there was no other abnormalities he was sitting with his nephew who traveled from [place] to see him and his nephew was not sick at all Kulwant there is no recent travel, there is no recent sick contacts according to the , we planned to do a lumbar puncture with the patient however his INR was 1.5 this will be placed on hold until 24 hours after his INR is down to 1.1 so the patient does not have any complications with spinal bleed. Patient will be seen in consultation by neurology as well as infectious disease, history of troponin was slightly elevated but I believe is due to the sepsis , I'm highly suspicious of viral encephalitis versus meningitis, and the patient need to have a lumbar puncture for evaluation of protein and cell count and culture along with encephalitis panel including West Nile virus. 04/06: Patient is found ambulating and standing in his room. His gait is steady. Balance appears normal. He states he only concern that he has not been able to sleep. He normally takes clonazepam at bedtime, 0.25 mg. We will change this to scheduled so that he will receive it. Plan is to discontinue Blackburn catheter. Patient has had marked improvement of his mental status over the weekend. Patient has been followed by multiple consultants including cardiology for acute on chronic systolic heart failure. He is currently on IV Lasix at 60 mg every 12 hours. Magnesium and potassium were replaced today by cardiology. They did add in amiodarone and AICD is to be interrogated. Lanoxin was discontinued and ALFRED inhibitor on hold to initiate Entresto. Dr. Conway has been following patient. Plan continues to be lumbar puncture once INR is down. Neurology states her is no need for lumbar puncture at this point and ID to make final determination. A repeat CAT scan of the brain was negative for any acute process. EEG is pending. 04/07: EEG was found to be in normal limits although it showed irregularly irregular rhythm with a normal rate. No epileptiform discharges were seen. Dr. Staley has discontinue vancomycin and Rocephin and plan for short course of acyclovir or Valtrex with follow-up in the outpatient setting. Dr. Staley is in agreement to cancel LP. He is planning for midline placement and IV acyclovir for 2 week course as an outpatient. We will resume the patient back on Coumadin. Anticipate discharge in the next 24 hours. The patient denies any new complaints. He states he is eating and drinking well. He denies having any chest pain. He is complaining of lack of sleep. He did receive clonazepam last evening at his home dose. 04/08: Last evening, patient had a run of V. tach 5 beats with multiple other episodes as found when his AICD was interrogated. There is also episodes of ventricular fibrillation which was not halted by ATP and received AICD shock. He was started on amiodarone drip yesterday by cardiology which will be completed today and patient will be transitioned to amiodarone oral. Cardiology has cleared him for discharge today. Chest x-ray from yesterday revealed marked interval improvement in pulmonary aeration with resolution of previously seen alveolar and interstitial edema. 4 chamber cardiomegaly remains. Right upper lung pleural thickening. Midline was placed yesterday but patient pulled out last night while putting on jacket. He is scheduled today to have this replaced. Dr. Flower has provided a prescription for acyclovir for 2 weeks. Patient was resumed on Coumadin 5 mg last night. INR 1.2, potassium 3.1 , BUN 1232 and creatinine 1.27. Potassium will be replaced. Coumadin 5 mg ordered for tonight. Patient is scheduled to start Entresto tomorrow. He states that he had 3 bowel movements open soft or formed. No diarrhea. The patient is anxious to be discharged home. Discharge diagnoses: 1. 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 2. Elevated troponin without evidence of acute ischemia. 3. Acute on chronic systolic heart failure with severe nonischemic cardiomyopathy. 4. Hypertension and hypertensive cardiovascular disease. 5. Hyperlipidemia. 6. Chronic persistent atrial fibrillation. 7. Hypophosphatemia. 8. Gastroesophageal reflux disease and hiatal hernia status post Swapnil fundoplication. 9. Benign prostatic hypertrophy. 10. History of pulmonary sarcoidosis stable at this point in time. 11. Episodes of V. tach and one episode of V. fib status post AICD firing. Discharge plan: Home with home care Impression and plan of care have been directed as dictated by the signing physician. Luma Mancera nurse practitioner acting as scribe for signing physician. Patient Condition at Discharge: Good Plan - Discharge Summary Discharge Rx Participant: No New Discharge Prescriptions: New Amiodarone [Cordarone] 200 mg PO TID #90 tab Carvedilol [Coreg] 6.25 mg PO BID-W/MEALS #60 tab Furosemide [Lasix] 80 mg PO BID@0900,1600 #60 tab Magnesium Oxide [Mag-Ox] 400 mg PO BID tab Potassium Chloride [Klor-Con 20] 40 meq PO BID #120 tab Sacubitril/Valsartan [Entresto 24 mg-26 mg Tablet] 1 each PO BID tablet Spironolactone [Aldactone] 25 mg PO BID #60 tab Continue Lovastatin [Mevacor] 40 mg PO HS Dicyclomine [Bentyl] 20 mg PO AC-TID Albuterol Sulfate [Proair Hfa] 2 puff INHALATION RT-TID PRN PRN Reason: Dyspnea Ergocalciferol [Vitamin D2 (DRISDOL)] 50,000 unit PO Q14D Fludrocortisone [Florinef] 0.1 mg PO BID oxyCODONE-APAP 7.5-325MG [Percocet 7.5-325 mg] 1 tab PO TID PRN PRN Reason: Pain Levothyroxine Sodium [Synthroid] 25 mcg PO DAILY Finasteride [Proscar] 5 mg PO QAM Citalopram Hydrobromide [Citalopram HBr] 20 mg PO BID Midodrine HCl [ProAmatine] 20 mg PO BID Warfarin [Coumadin] 2.5 mg PO HS Butalb/APAP/Caff 50-325-40Mg [Fioricet 50-325-40] 1 tab PO Q8H PRN PRN Reason: Headache Tamsulosin [Flomax] 0.4 mg PO HS Changed clonazePAM 0.25 mg PO HS #0 Hydrocortisone [Cortef] 10 mg PO BID #0 Discontinued Carvedilol [Coreg*] 12.5 mg PO BID Lisinopril [Zestril] 2.5 mg PO DAILY #30 tab Spironolactone [Aldactone] 25 mg PO DAILY #30 tab Furosemide [Lasix] 60 mg PO BID@0800,1200 Potassium Chloride [K-Tab ER] 20 meq PO DAILY Digoxin 250 mcg PO HS Slow Mag 143 mg PO BID Discharge Medication List Albuterol Sulfate [Proair Hfa] 2 puff INHALATION RT-TID PRN 10/27/13 [History] Dicyclomine [Bentyl] 20 mg PO AC-TID 10/27/13 [History] Lovastatin [Mevacor] 40 mg PO HS 10/27/13 [History] Ergocalciferol [Vitamin D2 (DRISDOL)] 50,000 unit PO Q14D 12/23/14 [History] Fludrocortisone [Florinef] 0.1 mg PO BID 02/27/15 [History] oxyCODONE-APAP 7.5-325MG [Percocet 7.5-325 mg] 1 tab PO TID PRN 03/03/15 [ History] Citalopram Hydrobromide [Citalopram HBr] 20 mg PO BID 03/27/16 [History] Finasteride [Proscar] 5 mg PO QAM 03/27/16 [History] Levothyroxine Sodium [Synthroid] 25 mcg PO DAILY 03/27/16 [History] Midodrine HCl [ProAmatine] 20 mg PO BID 02/24/18 [History] Warfarin [Coumadin] 2.5 mg PO HS 02/24/18 [History] Butalb/APAP/Caff 50-325-40Mg [Fioricet 50-325-40] 1 tab PO Q8H PRN 04/03/18 [ History] Tamsulosin [Flomax] 0.4 mg PO HS 04/03/18 [History] Amiodarone [Cordarone] 200 mg PO TID #90 tab 04/08/18 [Rx] Carvedilol [Coreg] 6.25 mg PO BID-W/MEALS #60 tab 04/08/18 [Rx] Furosemide [Lasix] 80 mg PO BID@0900,1600 #60 tab 04/08/18 [Rx] Hydrocortisone [Cortef] 10 mg PO BID #0 04/08/18 [Rx] Magnesium Oxide [Mag-Ox] 400 mg PO BID tab 04/08/18 [Rx] Potassium Chloride [Klor-Con 20] 40 meq PO BID #120 tab 04/08/18 [Rx] Sacubitril/Valsartan [Entresto 24 mg-26 mg Tablet] 1 each PO BID tablet [Rx] Spironolactone [Aldactone] 25 mg PO BID #60 tab 04/08/18 [Rx] clonazePAM 0.25 mg PO HS #0 04/08/18 [Rx] Follow up Appointment(s)/Referral(s): Lis Cárdenas MD [STAFF PHYSICIAN] - 04/23/18 4:30 pm () Merritt Patel MD [Primary Care Provider] - 04/16/18 11:00 am ( with Amanda FRIAS) Mireille Staley MD [STAFF PHYSICIAN] - 04/21/18 1:45 pm (Friday) Ambulatory/Diagnostic Orders: Comprehensive Metabolic Panel [LAB.AMB] Location: None Selected Prothrombin Time INR [LAB.AMB] Location: None Selected Patient Instructions/Handouts: Heart Failure (DC), Heart Healthy Diet (DC), Acute Delirium (DC), Encephalopathy (DC) Activity/Diet/Wound Care/Special Instructions: Start Entresto on 04/09 Pts monthly copay for Entresto is $43 IV Acyclovir-[facility] [phone] Discharge Disposition: HOME WITH HOME HEALTH SERVICES
--- NOTE | 2018-04-08 15:05 | PN ---
PROGRESS NOTE This patient was admitted with congestive cardiac failure. Patient had intermittent episodes of sustained ventricular tachycardia, 1 episode of ventricular flutter and patient received a shock. Patient has been loaded with IV amiodarone. There is no more reoccurrence of the ventricular tachycardia. Clinically, patient is doing much better. Denies any orthopnea or PND. He is ambulating in the room. Blood pressure is 110/59 mmHg, oxygen saturation is 94%. First and second heart sounds are normal. Lungs are clear to auscultation and percussion. Patient is going to get 2 doses of 40 mEq oral potassium today and he will get 40 mEq potassium chloride every day from tomorrow. Patient will have repeat electrolytes done in 3 weeks and once a week. Continue the rest of the medications. MMODL / IJN: [id number] /
[2018-04-08] MEDS ORDERED: FUROSEMIDE 80 MG TAB PO SCH (16:00)
[2018-04-08] MEDS ORDERED: WARFARIN 5 MG TAB PO ONE (18:00)
--- NOTE | 2018-04-08 18:56 | PN ---
PROGRESS NOTE DATE OF SERVICE: 04/08/2018 REASON FOR FOLLOWUP: Encephalitis, likely herpes. INTERVAL HISTORY: The patient was seen on rounds this morning. The patient has been afebrile. Unfortunately the patient did pull out his midline last night. Another one was placed this morning. The patient denies having any headache. No chest pain, shortness of breath or cough. No abdominal pain and no diarrhea. PHYSICAL EXAMINATION: Blood pressure 109/59 with a pulse of 68, temperature 97.3. He is 94% on room air. General description is an elderly male up in the bed in no distress. RESPIRATORY SYSTEM: Unlabored breathing. Clear to auscultation anteriorly. HEART: S1, S2. Regular rate and rhythm. ABDOMEN: Soft. No tenderness. LABS: Hemoglobin is 12, white count 9.8. BUN of 32, creatinine 1.27. DIAGNOSTIC IMPRESSION AND PLAN: Patient admitted to hospital with encephalitis. Source is likely herpes. Unfortunately, LP could not be completed, as the patient's INR was elevated. However, he clinically responded to the IV acyclovir. That should be continued for another 10 days to finish at least a 2- to 3-week course of therapy with close outpatient followup. His kidney function will be monitored closely in the outpatient setting. All questions and concerns have been answered. MMODL / IJN: [id number] /
[2018-04-09] MEDS ORDERED: SACUBITRIL/VALSARTAN 24 MG-26 MG TABLET PO SCH (08:00)
== END 2018-04-08 15:26 | disposition home health service (06) | DRG 97 ==
LOC: EC 04:43 → 3SCARD 06:25 → 2SICU 12:43 → 3SCARD 21:50
PROVIDERS: ADMIT Internal Medicine Geriatric Medicine; ATTEND Internal Medicine Geriatric Medicine
PROC: B54NZZA Ultrasonography of Left Upper Extremity Veins, Guidance (ICD-10-PCS; principal; 2018-04-07 13:30)
PROC: 05HC33Z Insertion of Infusion Device into Left Basilic Vein, Percutaneous Approach (ICD-10-PCS; principal; 2018-04-07 13:30)
PROC: 05HB33Z Insertion of Infusion Device into Right Basilic Vein, Percutaneous Approach (ICD-10-PCS; 2018-04-08 13:20)
PROC: B54MZZA Ultrasonography of Right Upper Extremity Veins, Guidance (ICD-10-PCS; 2018-04-08 13:20)
DX: B00.4 Herpesviral encephalitis (principal); G93.41 Metabolic encephalopathy; I49.01 Ventricular fibrillation; I49.02 Ventricular flutter; I50.23 Acute on chronic systolic (congestive) heart failure; F05 Delirium due to known physiological condition; I13.0 Hypertensive heart and chronic kidney disease with heart failure and stage 1 through stage 4 chronic kidney disease, or unspecified chronic kidney disease; I47.2 Ventricular tachycardia; I48.1 Persistent atrial fibrillation; D86.0 Sarcoidosis of lung; E78.5 Hyperlipidemia, unspecified; E83.39 Other disorders of phosphorus metabolism; E83.42 Hypomagnesemia; E87.6 Hypokalemia; F41.0 Panic disorder [episodic paroxysmal anxiety]; G43.909 Migraine, unspecified, not intractable, without status migrainosus; H91.90 Unspecified hearing loss, unspecified ear; I25.10 Atherosclerotic heart disease of native coronary artery without angina pectoris; I25.2 Old myocardial infarction; I25.5 Ischemic cardiomyopathy; I27.20 Pulmonary hypertension, unspecified; I48.2 Chronic atrial fibrillation; J44.9 Chronic obstructive pulmonary disease, unspecified; K21.9 Gastro-esophageal reflux disease without esophagitis; K44.9 Diaphragmatic hernia without obstruction or gangrene; N18.9 Chronic kidney disease, unspecified; N40.0 Benign prostatic hyperplasia without lower urinary tract symptoms; Z66 Do not resuscitate; Z78.1 Physical restraint status; Z79.01 Long term (current) use of anticoagulants; Z79.2 Long term (current) use of antibiotics; Z79.899 Other long term (current) drug therapy; Z80.9 Family history of malignant neoplasm, unspecified; Z82.0 Family history of epilepsy and other diseases of the nervous system; Z82.49 Family history of ischemic heart disease and other diseases of the circulatory system; Z86.14 Personal history of Methicillin resistant Staphylococcus aureus infection; Z86.61 Personal history of infections of the central nervous system; Z86.73 Personal history of transient ischemic attack (TIA), and cerebral infarction without residual deficits; Z86.79 Personal history of other diseases of the circulatory system; Z87.11 Personal history of peptic ulcer disease; Z87.442 Personal history of urinary calculi; Z87.891 Personal history of nicotine dependence; Z90.49 Acquired absence of other specified parts of digestive tract; Z95.5 Presence of coronary angioplasty implant and graft; Z95.810 Presence of automatic (implantable) cardiac defibrillator; I69.398 Other sequelae of cerebral infarction; H53.8 Other visual disturbances; Z88.8 Allergy status to other drugs, medicaments and biological substances; Z88.1 Allergy status to other antibiotic agents; Z91.041 Radiographic dye allergy status
CPT/HCPCS: 36415; 36569; 70450; 71045; 71046; 74177; 76937; 80048; 80053; 81003; 82140; 82550; 82553; 83605; 83735; 83880; 84100; 84132; 84484; 85025; 85610; 85730; 86694; 86695; 86696; 87040; 87086; 87502; 93005; 95816; 96361; 96365; 96366; 96368; 96372; 96375; 96376; 99285

== ENCOUNTER 2018-04-18 07:50 | Emergency (ER) | payer MEDICARE ==
[2018-04-18 07:56] VITALS: RESP 18
--- NOTE | 2018-04-18 08:44 | ED ---
Recheck HPI - General Chief Complaint: Recheck/Abnormal Lab/Rx Stated Complaint: MIDLINE CAME OUT Time Seen by Provider: 04/18/18 08:06 Source: patient, RN notes reviewed Mode of arrival: ambulatory Limitations: no limitations - History of Present Illness Initial Comments: 72-year-old male presents to the emergency Department chief complaint of midline falling out. Patient states he had a midline placed in his right arm for outpatient IV acyclovir. Patient had hospital stay for encephalitis. Patient states he still has almost 1 week left of medication. Patient states that he gets it twice a day. Patient states that he call his PCP who advised him to come to the emergency department to have another midline place. Patient states that there was a large amount of bleeding initially but the bleeding has stopped. Patient has no other complaints. - Related Data Home Medications Medication Instructions Recorded Confirmed Albuterol Sulfate [Proair Hfa] 2 puff INHALATION RT-TID PRN 10/27/13 04/03/18 Dicyclomine [Bentyl] 20 mg PO AC-TID 10/27/13 04/03/18 Lovastatin [Mevacor] 40 mg PO HS 10/27/13 04/03/18 Ergocalciferol [Vitamin D2 50,000 unit PO Q14D 12/23/14 04/03/18 (DRISDOL)] Fludrocortisone [Florinef] 0.1 mg PO BID 02/27/15 04/03/18 oxyCODONE-APAP 7.5-325MG [Percocet 1 tab PO TID PRN 03/03/15 04/03/18 7.5-325 mg] Citalopram Hydrobromide 20 mg PO BID 03/27/16 04/03/18 [Citalopram HBr] Finasteride [Proscar] 5 mg PO QAM 03/27/16 04/03/18 Levothyroxine Sodium [Synthroid] 25 mcg PO DAILY 03/27/16 04/03/18 Midodrine HCl [ProAmatine] 20 mg PO BID 02/24/18 04/03/18 Warfarin [Coumadin] 2.5 mg PO HS 02/24/18 04/03/18 Butalb/APAP/Caff 50-325-40Mg 1 tab PO Q8H PRN 04/03/18 04/03/18 [Fioricet 50-325-40] Tamsulosin [Flomax] 0.4 mg PO HS 04/03/18 04/03/18 Previous Rx's Medication Instructions Recorded Amiodarone [Cordarone] 200 mg PO TID #90 tab 04/08/18 Carvedilol [Coreg] 6.25 mg PO BID-W/MEALS #60 tab 04/08/18 Furosemide [Lasix] 80 mg PO BID@0900,1600 #60 tab 04/08/18 Hydrocortisone [Cortef] 10 mg PO BID #0 04/08/18 Magnesium Oxide [Mag-Ox] 400 mg PO BID tab 04/08/18 Potassium Chloride [Klor-Con 20] 40 meq PO BID #120 tab 04/08/18 Sacubitril/Valsartan [Entresto 24 1 each PO BID tablet 04/08/18 mg-26 mg Tablet] Spironolactone [Aldactone] 25 mg PO BID #60 tab 04/08/18 clonazePAM 0.25 mg PO HS #0 04/08/18 Allergies Allergy/AdvReac Type Severity Reaction Status Date / Time Iodinated Contrast- Oral and Allergy Rash/Hives Verified 04/03/18 09:14 IV Dye [Iodinated Contrast Media - IV Dye] nitroglycerin Allergy passed out Verified 04/03/18 09:14 adhesive AdvReac SKIN TURNS Verified 04/03/18 09:14 RED piperacillin sodium AdvReac Confusion Verified 04/03/18 09:14 [From Zosyn] tazobactam sodium AdvReac Confusion Verified 04/03/18 09:14 [From Zosyn] Review of Systems ROS Statement: Those systems with pertinent positive or pertinent negative responses have been documented in the HPI. ROS Other: All systems not noted in ROS Statement are negative. Past Medical History Past Medical History: Atrial Fibrillation, Heart Failure, CVA/TIA, GERD/Reflux, Hearing Disorder / Deafness, Hyperlipidemia, Hypertension, Memory Impairment, Myocardial Infarction (NM), Osteoarthritis (OA), Prostate Disorder, Respiratory Disorder Additional Past Medical History / Comment(s): CVA BEHIND RT EYE-POOR VISION, migraine & cluster headaches,, NM's x 2 ( age unknown), cardiomyopathy, hole in stomach from excedrin -it caused aspiration after which he was in an induced coma and on a ventilator for 9 days, sarcoidosis of lungs, abdominal and stomach pain, frequent diarrhea, several head injuries as a child, arthiritis bilateral knees and hips, multiple lipomas, kidney stones, enlarged prostate, edema lower legs. Having difficulty swallowing now. Last Myocardial Infarction Date:: unknown History of Any Multi-Drug Resistant Organisms: MRSA Date of last positivie culture/infection: 08/15/09 MDRO Source:: LUNGS Past Surgical History: AICD, Bowel Resection, Heart Catheterization With Stent, Hernia Repair, Orthopedic Surgery, Pacemaker, Prostate Surgery, Tonsillectomy Additional Past Surgical History / Comment(s): 12/28/14 Lap jose fundoplasty with mesh and lap lysis of adhesions. Other SX: AICD 2008 with replacement 2013 (medtronic), 1995 bowel resection d/t perforation with colostomy with eventual reversal of colostomy, 2009-surgery for "hole in stomach", 2007 blephoplasty bilaterally, 2001 deviated septum, 2003 TURP, 1975 vasectomy, 2012 R rotator cuff, surgery on "head" due to injuries, numerous lipoma removals -4 from L leg, 05/2014, 08/2013 EGD for removal of dentist spray nozzle, 1955 Agu[facility] surgery at [facility] , 1975 vasectomy, lithrotripsy, bilateral inquinal hernia repairs with R side done x3, cardiac caths with stents Past Anesthesia/Blood Transfusion Reactions: Postoperative Nausea & Vomiting ( PONV) Additional Past Anesthesia/Blood Transfusion Reaction / Comment(s): Pt has never recieved blood Date of Last Stent Placement:: 2007 [facility] of Cardiac Device: [facility] Device Placement Date:: 08/2013 Medtronic Past Psychological History: Anxiety, Depression Smoking Status: Former smoker Past Alcohol Use History: None Reported Past Drug Use History: None Reported - Past Family History Brother(s) Family Medical History: Cancer Additional Family Medical History / Comment(s): Patient has 2 brothers that are both alive. One has history of prostate cancer. Father Family Medical History: Renal Disease, Respiratory Disorder Additional Family Medical History / Comment(s): Father at age 75 from renal failure. Mother Family Medical History: Coronary Artery Disease (CAD), Dementia Additional Family Medical History / Comment(s): Mother dies at age 94 from Alzheimer dementia. Sister(s) Family Medical History: No Reported History Additional Family Medical History / Comment(s): Patient has one sister with osteoarthritis. General Exam Limitations: no limitations General appearance: alert, in no apparent distress Head exam: Present: atraumatic, normocephalic, normal inspection Neck exam: Present: normal inspection, full ROM. Absent: tenderness, meningismus, lymphadenopathy Respiratory exam: Present: normal lung sounds bilaterally. Absent: respiratory distress, wheezes, rales, rhonchi, stridor Cardiovascular Exam: Present: regular rate, normal rhythm, normal heart sounds. Absent: systolic murmur, diastolic murmur, rubs, gallop, clicks Extremities exam: Present: other (Right bicipital region there is an old wound with no active bleeding) Skin exam: Present: warm, dry, intact, normal color. Absent: rash Course Vital Signs 04/18/18 07:53 Temperature 97.6 F Pulse Rate 86 Respiratory 18 Rate Blood Pressure 106/67 O2 Sat by Pulse 96 Oximetry Medical Decision Making - Medical Decision Making 72-year-old male presented secondary to his midline falling out. Unable to place midline in the emergency department after 4 and half hours. Patient was given peripheral IV and will follow-up on Friday for midline. Patient understands care of IV Disposition Clinical Impression: Encounter for intravenous line placement Disposition: HOME SELF-CARE Condition: Stable Instructions: Peripherally Inserted Central Catheters and Midline Catheters in... (DC) Additional Instructions: Follow-up on Friday for midline.Please return to the Emergency Department if symptoms worsen or any other concerns. Is patient prescribed a controlled substance at d/c from ED?: No Referrals: Merritt Patel MD [Primary Care Provider] - 1-2 days Time of Disposition: 11:43
[2018-04-18 12:02] VITALS: BP 103/70; PULSE 76; TEMP 98.7
== END 2018-04-18 12:00 | disposition home or self-care (01) ==
LOC: EC 07:50
DX: Z45.2 Encounter for adjustment and management of vascular access device (principal); G04.90 Encephalitis and encephalomyelitis, unspecified; E78.5 Hyperlipidemia, unspecified; I48.91 Unspecified atrial fibrillation; I11.0 Hypertensive heart disease with heart failure; I50.9 Heart failure, unspecified; H91.90 Unspecified hearing loss, unspecified ear; N40.0 Benign prostatic hyperplasia without lower urinary tract symptoms; F32.9 Major depressive disorder, single episode, unspecified; D86.89 Sarcoidosis of other sites; I25.2 Old myocardial infarction; Z87.891 Personal history of nicotine dependence; Z88.0 Allergy status to penicillin; Z88.8 Allergy status to other drugs, medicaments and biological substances; Z91.041 Radiographic dye allergy status; Z91.048 Other nonmedicinal substance allergy status; Z79.01 Long term (current) use of anticoagulants; Z79.52 Long term (current) use of systemic steroids; Z79.899 Other long term (current) drug therapy; Z86.14 Personal history of Methicillin resistant Staphylococcus aureus infection; Z95.0 Presence of cardiac pacemaker; Z95.818 Presence of other cardiac implants and grafts
CPT/HCPCS: 99282

== ENCOUNTER 2018-04-24 12:08 | Emergency (ER) | payer MEDICARE ==
[2018-04-24 12:13] VITALS: TEMP 97.4
[2018-04-24] MEDS ORDERED: SODIUM CHLORIDE 0.9% 500 ML 500 ML IV STA (12:18)
[2018-04-24] MEDS ORDERED: SODIUM CHLORIDE 0.9% 1,000 ML IV STA (12:18)
--- NOTE | 2018-04-24 12:20 | ED ---
Weakness HPI - General Chief complaint: Weakness Stated complaint: hypotension Time Seen by Provider: 04/24/18 12:18 Source: patient, family, RN notes reviewed, old records reviewed Mode of arrival: ambulatory - History of Present Illness Initial comments: This is a 72-year-old male to the ER for evaluation coming to the for evaluation of weakness and low blood pressure. Patient states he does feel lightheaded and dizzy. Denies recent fever no chest pain or shortness of breath abdominal pain no recent nausea vomiting or diarrhea MD Complaint: generalized weakness -: week(s) Location: generalized Severity: mild Severity scale (1-10): 2 Quality: constant Consistency: constant Improves with: none Worsens with: none Context: trauma/injury Associated Symptoms: denies other symptoms - Related Data Home Medications Medication Instructions Recorded Confirmed Albuterol Sulfate [Proair Hfa] 2 puff INHALATION RT-TID PRN 10/27/13 04/24/18 Dicyclomine [Bentyl] 20 mg PO AC-TID 10/27/13 04/24/18 Lovastatin [Mevacor] 40 mg PO HS 10/27/13 04/24/18 Ergocalciferol [Vitamin D2 50,000 unit PO Q14D 12/23/14 04/24/18 (DRISDOL)] Fludrocortisone [Florinef] 0.1 mg PO BID 02/27/15 04/24/18 Citalopram Hydrobromide 20 mg PO BID 03/27/16 04/24/18 [Citalopram HBr] Finasteride [Proscar] 5 mg PO QAM 03/27/16 04/24/18 Levothyroxine Sodium [Synthroid] 25 mcg PO DAILY 03/27/16 04/24/18 Midodrine HCl [ProAmatine] 10 mg PO BID 02/24/18 04/24/18 Warfarin [Coumadin] 2.5 mg PO HS 02/24/18 04/24/18 Tamsulosin [Flomax] 0.4 mg PO HS 04/03/18 04/24/18 Amiodarone [Cordarone] 200 mg PO BID@0800,1600 04/24/18 04/24/18 Metolazone [Zaroxolyn] 2.5 mg PO DAILY 04/24/18 04/24/18 Sacubitril/Valsartan [Entresto 24 1 tab PO BID 04/24/18 04/24/18 mg-26 mg Tablet] Spironolactone [Aldactone] 25 mg PO DAILY 04/24/18 04/24/18 Previous Rx's Medication Instructions Recorded Carvedilol [Coreg] 6.25 mg PO BID-W/MEALS #60 tab 04/08/18 Furosemide [Lasix] 80 mg PO BID@0900,1600 #60 tab 04/08/18 Hydrocortisone [Cortef] 10 mg PO BID #0 04/08/18 Potassium Chloride [Klor-Con 20] 40 meq PO BID #120 tab 04/08/18 clonazePAM 0.25 mg PO HS #0 04/08/18 Allergies Allergy/AdvReac Type Severity Reaction Status Date / Time Iodinated Contrast- Oral and Allergy Rash/Hives Verified 04/24/18 12:55 IV Dye [Iodinated Contrast Media - IV Dye] nitroglycerin Allergy passed out Verified 04/24/18 12:55 adhesive AdvReac SKIN TURNS Verified 04/24/18 12:55 RED piperacillin sodium AdvReac Confusion Verified 04/24/18 12:55 [From Zosyn] tazobactam sodium AdvReac Confusion Verified 04/24/18 12:55 [From Zosyn] Review of Systems ROS Statement: Those systems with pertinent positive or pertinent negative responses have been documented in the HPI. ROS Other: All systems not noted in ROS Statement are negative. Past Medical History Past Medical History: Atrial Fibrillation, Heart Failure, CVA/TIA, GERD/Reflux, Hearing Disorder / Deafness, Hyperlipidemia, Hypertension, Memory Impairment, Myocardial Infarction ([place]), Osteoarthritis (OA), Prostate Disorder, Respiratory Disorder Additional Past Medical History / Comment(s): CVA BEHIND RT EYE-POOR VISION, migraine & cluster headaches,, IN's x 2 ( age unknown), cardiomyopathy, hole in stomach from excedrin -it caused aspiration after which he was in an induced coma and on a ventilator for 9 days, sarcoidosis of lungs, abdominal and stomach pain, frequent diarrhea, several head injuries as a child, arthiritis bilateral knees and hips, multiple lipomas, kidney stones, enlarged prostate, edema lower legs. Having difficulty swallowing now. Last Myocardial Infarction Date:: unknown History of Any Multi-Drug Resistant Organisms: MRSA Date of last positivie culture/infection: 08/15/09 MDRO Source:: LUNGS Past Surgical History: AICD, Bowel Resection, Heart Catheterization With Stent, Hernia Repair, Orthopedic Surgery, Pacemaker, Prostate Surgery, Tonsillectomy Additional Past Surgical History / Comment(s): 12/28/14 Lap jose fundoplasty with mesh and lap lysis of adhesions. Other SX: AICD 2009 with replacement 2013 (medtronic), 1995 bowel resection d/t perforation with colostomy with eventual reversal of colostomy, 2009-surgery for "hole in stomach", 2007 blephoplasty bilaterally, 2001 deviated septum, 2003 TURP, 1975 vasectomy, 2012 R rotator cuff, surgery on "head" due to injuries, numerous lipoma removals -4 from L leg, 05/2014, 08/2013 EGD for removal of dentist spray nozzle, 1955 [facility] , 1975 vasectomy, lithrotripsy, bilateral inquinal hernia repairs with R side done x3, cardiac caths with stents Past Anesthesia/Blood Transfusion Reactions: Postoperative Nausea & Vomiting ( PONV) Additional Past Anesthesia/Blood Transfusion Reaction / Comment(s): Pt has never recieved blood Date of Last Stent Placement:: 2007 Type of Cardiac Device: AICD Device Placement Date:: 08/2013 Medtronic Past Psychological History: Anxiety, Depression Smoking Status: Former smoker Past Alcohol Use History: None Reported Past Drug Use History: None Reported - Past Family History Brother(s) Family Medical History: Cancer Additional Family Medical History / Comment(s): Patient has 2 brothers that are both alive. One has history of prostate cancer. Father Family Medical History: Renal Disease, Respiratory Disorder Additional Family Medical History / Comment(s): Father at age 75 from renal failure. Mother Family Medical History: Coronary Artery Disease (CAD), Dementia Additional Family Medical History / Comment(s): Mother dies at age 94 from Alzheimer dementia. Sister(s) Family Medical History: No Reported History Additional Family Medical History / Comment(s): Patient has one sister with osteoarthritis. General Exam General appearance: alert, in no apparent distress Head exam: Present: atraumatic, normocephalic, normal inspection Eye exam: Present: normal appearance, PERRL, EOMI. Absent: scleral icterus, conjunctival injection, periorbital swelling ENT exam: Present: normal exam, mucous membranes moist Neck exam: Present: normal inspection. Absent: tenderness, meningismus, lymphadenopathy Respiratory exam: Present: normal lung sounds bilaterally. Absent: respiratory distress, wheezes, rales, rhonchi, stridor Cardiovascular Exam: Present: regular rate, normal rhythm, normal heart sounds. Absent: systolic murmur, diastolic murmur, rubs, gallop, clicks GI/Abdominal exam: Present: soft, normal bowel sounds. Absent: distended, tenderness, guarding, rebound, rigid Extremities exam: Present: normal inspection, full ROM, normal capillary refill. Absent: tenderness, pedal edema, joint swelling, calf tenderness Back exam: Present: normal inspection Neurological exam: Present: alert, oriented X3, CN II-XII intact Psychiatric exam: Present: normal affect, normal mood Skin exam: Present: warm, dry, intact, normal color. Absent: rash Course Vital Signs 04/24/18 04/24/18 12:10 13:22 Temperature 97.4 F L Pulse Rate 89 70 Respiratory 20 16 Rate Blood Pressure 100/67 108/59 O2 Sat by Pulse 98 98 Oximetry Medical Decision Making - Medical Decision Making 72 male to the ED co dehydration, weakness, low BP, symptoms improved w hydration here in the ED - Lab Data Result diagrams: 04/24/18 12:29 04/24/18 12:29 Lab Results 04/24/18 04/24/18 04/24/18 Range/Units 12:29 12:29 12:29 WBC 7.8 (3.8-10.6) k/uL RBC 4.70 (4.30-5.90) m/uL Hgb 14.2 (13.0-17.5) gm/dL Hct 45.8 (39.0-53.0) % MCV 97.5 (80.0-100.0) fL MCH 30.2 (25.0-35.0) pg MCHC 31.0 (31.0-37.0) g/dL RDW 19.0 H (11.5-15.5) % Plt Count 231 (150-450) k/uL Neutrophils % 72 % Lymphocytes % 10 % Monocytes % 11 % Eosinophils % 2 % Basophils % 1 % Neutrophils # 5.6 (1.3-7.7) k/uL Lymphocytes # 0.8 L (1.0-4.8) k/uL Monocytes # 0.9 (0-1.0) k/uL Eosinophils # 0.2 (0-0.7) k/uL Basophils # 0.1 (0-0.2) k/uL Anisocytosis Slight Macrocytosis Slight Sodium 137 (137-145) mmol/L Potassium 5.3 H (3.5-5.1) mmol/L Chloride 96 L (98-107) mmol/L Carbon Dioxide 34 H (22-30) mmol/L Anion Gap 7 mmol/L BUN 52 H (9-20) mg/dL Creatinine 2.06 H (0.66-1.25) mg/dL Est GFR (CKD-EPI)AfAm 36 (>60 ml/min/1.73 sqM) Est GFR (CKD-EPI)NonAf 31 (>60 ml/min/1.73 sqM) Glucose 80 (74-99) mg/dL Plasma Lactic Acid Jun (0.7-2.0) mmol/L Calcium 9.1 (8.4-10.2) mg/dL Phosphorus 3.8 (2.5-4.5) mg/dL Magnesium 2.0 (1.6-2.3) mg/dL Total Bilirubin 0.7 (0.2-1.3) mg/dL AST 38 (17-59) U/L ALT 40 (21-72) U/L Alkaline Phosphatase 47 (38-126) U/L Total Creatine Kinase 21 L (55-170) U/L CK-MB (CK-2) 0.7 (0.0-2.4) ng/mL CK-MB (CK-2) Rel Index 3.3 Troponin I 0.018 (0.000-0.034) ng/mL Total Protein 7.0 (6.3-8.2) g/dL Albumin 3.7 (3.5-5.0) g/dL 04/24/18 Range/Units 12:29 WBC (3.8-10.6) k/uL RBC (4.30-5.90) m/uL Hgb (13.0-17.5) gm/dL Hct (39.0-53.0) % MCV (80.0-100.0) fL MCH (25.0-35.0) pg MCHC (31.0-37.0) g/dL RDW (11.5-15.5) % Plt Count (150-450) k/uL Neutrophils % % Lymphocytes % % Monocytes % % Eosinophils % % Basophils % % Neutrophils # (1.3-7.7) k/uL Lymphocytes # (1.0-4.8) k/uL Monocytes # (0-1.0) k/uL Eosinophils # (0-0.7) k/uL Basophils # (0-0.2) k/uL Anisocytosis Macrocytosis Sodium (137-145) mmol/L Potassium (3.5-5.1) mmol/L Chloride (98-107) mmol/L Carbon Dioxide (22-30) mmol/L Anion Gap mmol/L BUN (9-20) mg/dL Creatinine (0.66-1.25) mg/dL Est GFR (CKD-EPI)AfAm (>60 ml/min/1.73 sqM) Est GFR (CKD-EPI)NonAf (>60 ml/min/1.73 sqM) Glucose (74-99) mg/dL Plasma Lactic Acid Jun 1.2 (0.7-2.0) mmol/L Calcium (8.4-10.2) mg/dL Phosphorus (2.5-4.5) mg/dL Magnesium (1.6-2.3) mg/dL Total Bilirubin (0.2-1.3) mg/dL AST (17-59) U/L ALT (21-72) U/L Alkaline Phosphatase (38-126) U/L Total Creatine Kinase (55-170) U/L CK-MB (CK-2) (0.0-2.4) ng/mL CK-MB (CK-2) Rel Index Troponin I (0.000-0.034) ng/mL Total Protein (6.3-8.2) g/dL Albumin (3.5-5.0) g/dL - Radiology Data Radiology results: report reviewed (CXR is negavite for acute DISEASE), image reviewed Disposition Clinical Impression: Dehydration Disposition: HOME SELF-CARE Condition: Good Instructions: Dehydration (ED) Is patient prescribed a controlled substance at d/c from ED?: No Referrals: Merritt Patel MD [Primary Care Provider] - 1-2 days
[2018-04-24 12:47] LABS: Anisocytosis Slight; Basophils # (A) 0.1 k/uL (0-0.2); Basophils % (A) 1 %; Eosinophils # (A) 0.2 k/uL (0-0.7); Eosinophils % (A) 2 %; HCT 45.8 % (39.0-53.0); HGB 14.2 gm/dL (13.0-17.5); Lymphocytes # (A) 0.8 k/uL (1.0-4.8); Lymphocytes % (A) 10 %; MCH 30.2 pg (25.0-35.0); MCV 97.5 fL (80.0-100.0); Macrocytosis Slight; Mean Platelet Volume 7.6; Monocytes # (A) 0.9 k/uL (0-1.0); Monocytes % (A) 11 %; Neutrophils # (A) 5.6 k/uL (1.3-7.7); Neutrophils % (A) 72 %; Platelet Count 231 k/uL (150-450); WBC 7.8 k/uL (3.8-10.6)
[2018-04-24 12:57] LABS: Albumin 3.7 g/dL (3.5-5.0); Calcium 9.1 mg/dL (8.4-10.2); Total Bilirubin 0.7 mg/dL (0.2-1.3)
[2018-04-24 13:06] LABS: Phosphorus 3.8 mg/dL (2.5-4.5); Potassium 5.3 mmol/L (3.5-5.1)
--- NOTE | 2018-04-24 13:13 | XR ---
EXAMINATION TYPE: XR chest 2V DATE OF EXAM: 04/24/2018 COMPARISON: 04/07/2018 HISTORY: Hypotension and weakness TECHNIQUE: Frontal and lateral views of the chest are obtained. FINDINGS: There is no residual alveolar and interstitial edema. There is marked cardiomegaly and saurabh ear atelectasis near the right cardiophrenic angle. Left-sided cardiac device is unchanged in positio n. Right apical peripheral opacity likely represents pleural thickening or a pleural plaque. No sizab le pneumothorax or pleural effusion. Biapical pleural plaquing is also noted. Pulmonary hyperinflatio n and flattening of the diaphragm suggests underlying COPD. There is generalized osseous demineraliza tion and minimal degenerative changes of the thoracic spine. IMPRESSION: Redemonstration of right upper lung pleural thickening or pleural plaquing that again co uld be further assessed with CT thorax. No acute cardiopulmonary process. Radiographic sequela of STRING TOP SEALER D and marked cardiomegaly are stable.
[2018-04-24 13:24] LABS: Creatine Kinase MB 0.7 ng/mL (0.0-2.4); Troponin I 0.018 ng/mL (0.000-0.034)
[2018-04-24 14:41] VITALS: BP 116/73; PULSE 67; RESP 14
== END 2018-04-24 14:30 | disposition home or self-care (01) ==
LOC: EC 12:08
DX: E86.0 Dehydration (principal); I95.9 Hypotension, unspecified; I48.91 Unspecified atrial fibrillation; I11.0 Hypertensive heart disease with heart failure; I50.9 Heart failure, unspecified; E78.5 Hyperlipidemia, unspecified; I25.2 Old myocardial infarction; F41.9 Anxiety disorder, unspecified; F32.9 Major depressive disorder, single episode, unspecified; Z86.73 Personal history of transient ischemic attack (TIA), and cerebral infarction without residual deficits; Z87.438 Personal history of other diseases of male genital organs; Z86.14 Personal history of Methicillin resistant Staphylococcus aureus infection; Z95.810 Presence of automatic (implantable) cardiac defibrillator; Z95.5 Presence of coronary angioplasty implant and graft; Z87.891 Personal history of nicotine dependence; Z82.49 Family history of ischemic heart disease and other diseases of the circulatory system; Z79.52 Long term (current) use of systemic steroids; Z79.01 Long term (current) use of anticoagulants; Z79.899 Other long term (current) drug therapy; Z91.041 Radiographic dye allergy status; Z88.8 Allergy status to other drugs, medicaments and biological substances; Z91.048 Other nonmedicinal substance allergy status; Z88.1 Allergy status to other antibiotic agents
CPT/HCPCS: 36415; 71046; 80053; 82550; 82553; 83605; 83735; 84100; 84484; 85025; 93005; 96360; 99285

== ENCOUNTER 2018-05-06 15:05 | Inpatient (IN) | payer MEDICARE ==
[2018-05-06] MEDS ORDERED: SODIUM CHLORIDE 0.9% 1,000 ML IV STA (16:00)
--- NOTE | 2018-05-06 16:07 | ED ---
General Adult HPI - General Chief complaint: Dizziness Stated complaint: Low blood pressure Time Seen by Provider: 05/06/18 15:05 Source: patient, RN notes reviewed Mode of arrival: ambulatory Limitations: no limitations - History of Present Illness Initial comments: This a 72-year-old male presents emergency Department with a high blood pressure history as well as a low blood pressure history. Patient has been having issues with having near syncopal episodes and it's been ongoing for at least a month. Patient states 3 times this month he almost passed out but when he slipped himself down the floor the symptoms seemed to resolve in the goes away. Patient denies any chest pain or palpitations. Patient denies any increased shortness of breath per patient denies any recent fever chills or cough per patient denies any actual syncopal episode. Patient states he talked to the primary medical care doctor's office and they wanted him to come to the hospital and be admitted. Patient currently denies any headache patient denies any numbness weakness. Patient states lying in bed he has no symptoms whatsoever. - Related Data Home Medications Medication Instructions Recorded Confirmed Albuterol Sulfate [Proair Hfa] 2 puff INHALATION RT-TID PRN 10/27/13 05/06/18 Dicyclomine [Bentyl] 20 mg PO AC-TID 10/27/13 05/06/18 Lovastatin [Mevacor] 40 mg PO HS 10/27/13 05/06/18 Fludrocortisone [Florinef] 0.1 mg PO BID 02/27/15 05/06/18 Citalopram Hydrobromide 20 mg PO BID 03/27/16 05/06/18 [Citalopram HBr] Finasteride [Proscar] 5 mg PO HS 03/27/16 05/06/18 Levothyroxine Sodium [Synthroid] 25 mcg PO DAILY 03/27/16 05/06/18 Midodrine HCl [ProAmatine] 10 mg PO BID 02/24/18 05/06/18 Warfarin [Coumadin] 2.5 mg PO HS 02/24/18 05/06/18 Tamsulosin [Flomax] 0.4 mg PO HS 04/03/18 05/06/18 Amiodarone [Cordarone] 200 mg PO BID 04/24/18 05/06/18 Metolazone [Zaroxolyn] 2.5 mg PO DAILY 04/24/18 05/06/18 Sacubitril/Valsartan [Entresto 24 1 tab PO HS 04/24/18 05/06/18 mg-26 mg Tablet] Spironolactone [Aldactone] 12.5 mg PO DAILY 04/24/18 05/06/18 Carvedilol [Coreg] 3.125 mg PO BID 05/06/18 05/06/18 Furosemide [Lasix] 40 mg PO DAILY@1600 05/06/18 05/06/18 Furosemide [Lasix] 80 mg PO QAM 05/06/18 05/06/18 clonazePAM 0.25 mg PO HS 05/06/18 05/06/18 Previous Rx's Medication Instructions Recorded Hydrocortisone [Cortef] 10 mg PO BID #0 04/08/18 Potassium Chloride [Klor-Con 20] 40 meq PO BID #120 tab 04/08/18 Allergies Allergy/AdvReac Type Severity Reaction Status Date / Time Iodinated Contrast- Oral and Allergy Rash/Hives Verified 05/06/18 15:09 IV Dye [Iodinated Contrast Media - IV Dye] nitroglycerin Allergy passed out Verified 05/06/18 15:09 adhesive AdvReac SKIN TURNS Verified 05/06/18 15:09 RED piperacillin sodium AdvReac Confusion Verified 05/06/18 15:09 [From Zosyn] tazobactam sodium AdvReac Confusion Verified 05/06/18 15:09 [From Zosyn] Review of Systems ROS Statement: Those systems with pertinent positive or pertinent negative responses have been documented in the HPI. ROS Other: All systems not noted in ROS Statement are negative. Past Medical History Past Medical History: Atrial Fibrillation, Heart Failure, CVA/TIA, GERD/Reflux, Hearing Disorder / Deafness, Hyperlipidemia, Hypertension, Memory Impairment, Myocardial Infarction (MO), Osteoarthritis (OA), Prostate Disorder, Respiratory Disorder Additional Past Medical History / Comment(s): CVA BEHIND RT EYE-POOR VISION, migraine & cluster headaches,, MO's x 2 ( age unknown), cardiomyopathy, hole in stomach from excedrin -it caused aspiration after which he was in an induced coma and on a ventilator for 9 days, sarcoidosis of lungs, abdominal and stomach pain, frequent diarrhea, several head injuries as a child, arthiritis bilateral knees and hips, multiple lipomas, kidney stones, enlarged prostate, edema lower legs. Having difficulty swallowing now. Last Myocardial Infarction Date:: unknown History of Any Multi-Drug Resistant Organisms: MRSA Date of last positivie culture/infection: 08/15/09 MDRO Source:: LUNGS Past Surgical History: AICD, Bowel Resection, Heart Catheterization With Stent, Hernia Repair, Orthopedic Surgery, Pacemaker, Prostate Surgery, Tonsillectomy Additional Past Surgical History / Comment(s): 12/28/14 Lap jose fundoplasty with mesh and lap lysis of adhesions. Other SX: AICD 2008 with replacement 2013 (medtronic), 1995 bowel resection d/t perforation with colostomy with eventual reversal of colostomy, 2009-surgery for "hole in stomach", 2007 blephoplasty bilaterally, 2001 deviated septum, 2003 TURP, 1975 vasectomy, 2012 R rotator cuff, surgery on "head" due to injuries, numerous lipoma removals -4 from L leg, 05/2014, 08/2013 EGD for removal of dentist spray nozzle, 1955 Aguilar surgery at [facility], 1975 vasectomy, lithrotripsy, bilateral inquinal hernia repairs with R side done x3, cardiac caths with stents Past Anesthesia/Blood Transfusion Reactions: Postoperative Nausea & Vomiting ( PONV) Additional Past Anesthesia/Blood Transfusion Reaction / Comment(s): Pt has never recieved blood Date of Last Stent Placement:: 2007 Type of Cardiac Device: AICD Device Placement Date:: 08/2013 Medtronic Past Psychological History: Anxiety, Depression Smoking Status: Former smoker Past Alcohol Use History: None Reported Past Drug Use History: None Reported - Past Family History Brother(s) Family Medical History: Cancer Additional Family Medical History / Comment(s): Patient has 2 brothers that are both alive. One has history of prostate cancer. Father Family Medical History: Renal Disease, Respiratory Disorder Additional Family Medical History / Comment(s): Father at age 75 from renal failure. Mother Family Medical History: Coronary Artery Disease (CAD), Dementia Additional Family Medical History / Comment(s): Mother dies at age 94 from Alzheimer dementia. Sister(s) Family Medical History: No Reported History Additional Family Medical History / Comment(s): Patient has one sister with osteoarthritis. General Exam - General Exam Comments Initial Comments: GENERAL: Patient is well-developed and well-nourished. Patient is nontoxic and well- hydrated and is in mild distress. ENT: Neck is soft and supple. No significant lymphadenopathy is noted. Oropharynx is clear. Moist mucous membranes. Neck has full range of motion without eliciting any pain. EYES: The sclera were anicteric and conjunctiva were pink and moist. Extraocular movements were intact and pupils were equal round and reactive to light. Eyelids were unremarkable. PULMONARY: Unlabored respirations. Good breath sounds bilaterally. No audible rales rhonchi or wheezing was noted. CARDIOVASCULAR: There is a regular rate and rhythm without any murmurs gallops or rubs. ABDOMEN: Soft and nontender with normal bowel sounds. No palpable organomegaly was noted. There is no palpable pulsatile mass. SKIN: Skin is clear with no lesions or rashes and otherwise unremarkable. NEUROLOGIC: Patient is alert and oriented x3. Cranial nerves II through XII are grossly intact. Motor and sensory are also intact. Normal speech, volume and content. Symmetrical smile. MUSCULOSKELETAL: Normal extremities with adequate strength and full range of motion. No lower extremity swelling or edema. No calf tenderness. LYMPHATICS: No significant lymphadenopathy is noted PSYCHIATRIC: Normal psychiatric evaluation. Limitations: no limitations Course Vital Signs 05/06/18 05/06/18 15:08 16:12 Temperature 97.5 F L Pulse Rate 80 Respiratory 16 Rate Blood Pressure 101/68 Blood Pressure 82/56 [Right Arm Sitting] Blood Pressure 106/85 [Right Arm Standing] Blood Pressure 86/56 [Right Arm Supine] O2 Sat by Pulse 96 Oximetry Medical Decision Making - Medical Decision Making EKG shows atrial fibrillation 76 bpm QRS is 98 QT interval 410 QTC is 461. Patient's EKG shows some inverted T waves in precordial leads which are similar to the one she had on a previous EKG. Chest x-ray shows a possible right lower lobe infiltrate that was there previously. I spoke with Dr. Farooq she agreed to admit the patient admitted the patient and consult cardiology. I wrote admitting orders. - Lab Data Result diagrams: 05/06/18 16:23 05/06/18 16:23 Lab Results 05/06/18 05/06/18 05/06/18 Range/Units 16:23 16:23 16:23 WBC 9.3 (3.8-10.6) k/uL RBC 4.00 L (4.30-5.90) m/uL Hgb 11.9 L (13.0-17.5) gm/dL Hct 37.9 L (39.0-53.0) % MCV 94.9 (80.0-100.0) fL MCH 29.8 (25.0-35.0) pg MCHC 31.4 (31.0-37.0) g/dL RDW 19.2 H (11.5-15.5) % Plt Count 252 (150-450) k/uL Neutrophils % 73 % Lymphocytes % 9 % Monocytes % 10 % Eosinophils % 3 % Basophils % 1 % Neutrophils # 6.8 (1.3-7.7) k/uL Lymphocytes # 0.8 L (1.0-4.8) k/uL Monocytes # 1.0 (0-1.0) k/uL Eosinophils # 0.3 (0-0.7) k/uL Basophils # 0.1 (0-0.2) k/uL Anisocytosis Slight Macrocytosis Slight PT (9.0-12.0) sec INR (<1.2) APTT (22.0-30.0) sec Sodium 136 L (137-145) mmol/L Potassium 5.1 (3.5-5.1) mmol/L Chloride 95 L (98-107) mmol/L Carbon Dioxide 34 H (22-30) mmol/L Anion Gap 7 mmol/L BUN 60 H (9-20) mg/dL Creatinine 2.59 H (0.66-1.25) mg/dL Est GFR (CKD-EPI)AfAm 27 (>60 ml/min/1.73 sqM) Est GFR (CKD-EPI)NonAf 23 (>60 ml/min/1.73 sqM) Glucose 111 H (74-99) mg/dL Calcium 8.9 (8.4-10.2) mg/dL Magnesium 1.9 (1.6-2.3) mg/dL Total Bilirubin 0.8 (0.2-1.3) mg/dL AST 23 (17-59) U/L ALT 27 (21-72) U/L Alkaline Phosphatase 47 (38-126) U/L Total Creatine Kinase 21 L (55-170) U/L CK-MB (CK-2) 0.6 (0.0-2.4) ng/mL CK-MB (CK-2) Rel Index 2.9 Troponin I <0.012 (0.000-0.034) ng/mL NT-Pro-B Natriuret Pep pg/mL Total Protein 6.4 (6.3-8.2) g/dL Albumin 3.4 L (3.5-5.0) g/dL 05/06/18 05/06/18 Range/Units 16:23 16:23 WBC (3.8-10.6) k/uL RBC (4.30-5.90) m/uL Hgb (13.0-17.5) gm/dL Hct (39.0-53.0) % MCV (80.0-100.0) fL MCH (25.0-35.0) pg MCHC (31.0-37.0) g/dL RDW (11.5-15.5) % Plt Count (150-450) k/uL Neutrophils % % Lymphocytes % % Monocytes % % Eosinophils % % Basophils % % Neutrophils # (1.3-7.7) k/uL Lymphocytes # (1.0-4.8) k/uL Monocytes # (0-1.0) k/uL Eosinophils # (0-0.7) k/uL Basophils # (0-0.2) k/uL Anisocytosis Macrocytosis PT 12.1 H (9.0-12.0) sec INR 1.2 H (<1.2) APTT 22.7 (22.0-30.0) sec Sodium (137-145) mmol/L Potassium (3.5-5.1) mmol/L Chloride (98-107) mmol/L Carbon Dioxide (22-30) mmol/L Anion Gap mmol/L BUN (9-20) mg/dL Creatinine (0.66-1.25) mg/dL Est GFR (CKD-EPI)AfAm (>60 ml/min/1.73 sqM) Est GFR (CKD-EPI)NonAf (>60 ml/min/1.73 sqM) Glucose (74-99) mg/dL Calcium (8.4-10.2) mg/dL Magnesium (1.6-2.3) mg/dL Total Bilirubin (0.2-1.3) mg/dL AST (17-59) U/L ALT (21-72) U/L Alkaline Phosphatase (38-126) U/L Total Creatine Kinase (55-170) U/L CK-MB (CK-2) (0.0-2.4) ng/mL CK-MB (CK-2) Rel Index Troponin I (0.000-0.034) ng/mL NT-Pro-B Natriuret Pep 3000 pg/mL Total Protein (6.3-8.2) g/dL Albumin (3.5-5.0) g/dL Disposition Clinical Impression: Near syncope, Renal insufficiency Disposition: ADMITTED IP TO THIS HOSP Referrals: Merritt Patel MD [Primary Care Provider] - 1-2 days Time of Disposition: 17:37
--- NOTE | 2018-05-06 16:39 | XR ---
EXAMINATION TYPE: XR chest 2V DATE OF EXAM: 05/06/2018 COMPARISON: 04/24/2018 HISTORY: Chest pain TECHNIQUE: Frontal and lateral views of the chest are obtained. FINDINGS: Heart is enlarged. There is no heart failure. There is left axillary pacemaker with the le ad tip in the right ventricle. There are chest leads. There is probably some infiltrate in the right lower lobe posteriorly. Bony thorax is intact. IMPRESSION: Increasing right lower lobe infiltrate compared to last exam. No heart failure.
[2018-05-06 16:48] LABS: Anisocytosis Slight; Basophils # (A) 0.1 k/uL (0-0.2); Basophils % (A) 1 %; Eosinophils # (A) 0.3 k/uL (0-0.7); Eosinophils % (A) 3 %; HCT 37.9 % (39.0-53.0); HGB 11.9 gm/dL (13.0-17.5); Lymphocytes # (A) 0.8 k/uL (1.0-4.8); Lymphocytes % (A) 9 %; MCH 29.8 pg (25.0-35.0); MCHC 31.4 g/dL (31.0-37.0); MCV 94.9 fL (80.0-100.0); Macrocytosis Slight; Mean Platelet Volume 7.4; Monocytes % (A) 10 %; Neutrophils # (A) 6.8 k/uL (1.3-7.7); Neutrophils % (A) 73 %; Platelet Count 252 k/uL (150-450); RDW 19.2 % (11.5-15.5); WBC 9.3 k/uL (3.8-10.6)
[2018-05-06 16:54] LABS: INR 1.2 (<1.2); Partial Thromboplastin Time 22.7 sec (22.0-30.0); Prothrombin Time 12.1 sec (9.0-12.0)
[2018-05-06 16:56] LABS: Albumin 3.4 g/dL (3.5-5.0); Calcium 8.9 mg/dL (8.4-10.2); Magnesium 1.9 mg/dL (1.6-2.3); Potassium 5.1 mmol/L (3.5-5.1); Total Bilirubin 0.8 mg/dL (0.2-1.3); Total Protein 6.4 g/dL (6.3-8.2)
[2018-05-06 16:58] LABS: Creatine Kinase 21 U/L (55-170)
[2018-05-06 17:11] LABS: Creatine Kinase MB 0.6 ng/mL (0.0-2.4); Troponin I <0.012 ng/mL (0.000-0.034)
[2018-05-06] MEDS ORDERED: SODIUM CHLORIDE 0.9% 1,000 ML IV ONE (17:38)
[2018-05-07 07:03] LABS: Anisocytosis Slight; Basophils # (A) 0.2 k/uL (0-0.2); Basophils % (A) 2 %; Eosinophils # (A) 0.4 k/uL (0-0.7); Eosinophils % (A) 5 %; HCT 36.7 % (39.0-53.0); HGB 11.5 gm/dL (13.0-17.5); Lymphocytes # (A) 1.3 k/uL (1.0-4.8); Lymphocytes % (A) 15 %; MCH 30.4 pg (25.0-35.0); MCHC 31.4 g/dL (31.0-37.0); MCV 96.7 fL (80.0-100.0); Macrocytosis Slight; Mean Platelet Volume 7.5; Monocytes # (A) 0.9 k/uL (0-1.0); Monocytes % (A) 11 %; Neutrophils # (A) 5.8 k/uL (1.3-7.7); Neutrophils % (A) 66 %; Platelet Count 200 k/uL (150-450); RBC 3.79 m/uL (4.30-5.90); RDW 19.2 % (11.5-15.5); WBC 8.9 k/uL (3.8-10.6)
[2018-05-07 07:23] LABS: Calcium 8.5 mg/dL (8.4-10.2)
[2018-05-07] MEDS ORDERED: HEPARIN SODIUM,PORCINE 5,000 UNIT/ML 1 ML VIAL IV ONE (08:30)
--- NOTE | 2018-05-07 08:31 | P.CRDCN ---
History of Present Illness Consult date: 05/07/18 Requesting physician: Morena Farooq Consult reason: sycope Chief complaint: Dizziness and near syncope History of present illness: This is a pleasant 72-year-old gentleman with past medical history significant for chronic persistent atrial fibrillation on long-term anticoagulation, nonischemic cardio myopathy, chronic systolic congestive heart failure, hyperlipidemia, hypertension, valvular heart disease, status post single chamber ICD, chronic kidney disease, history of ventricular fibrillation. He follows regularly with Dr. Cárdenas in the office. Patient was brought to the hospital on this occasion with symptoms of persistent dizziness and near syncope. Patient has had symptoms similar to this in the past and medication adjustments were made, in spite of that he states that whenever he stands up he gets extremely dizzy and nearly passes out. Blood pressure 101/60 with a heart rate in the 80s, 96% on room air. Orthostatics were obtained, blood pressure lying 106/80, sitting 86/50, standing 82/50. Let pressure this morning 92/50. White blood cell count 8.9, hemoglobin 11.5, platelet count 200. Sodium 139, potassium 4.0, BUN 51 and creatinine 2.4. Patient does have a history of known mild renal insufficiency, on the seventh of this month his creatinine was 2.0, on the third of this month it was 1.8. Troponin 0.012, BNP 3000. Chest x-ray shows increasing right lower lobe infiltrate as compared with prior exam. No congestive heart failure. Patient's home medications included Zaroxolyn 2.5 mg daily, Flomax, Entresto, midodrine, Cortef, pro-scar, Cordarone 200 mg by mouth twice a day, Aldactone 12-1/2 mg daily, Synthroid, Florinef, Coreg 3.125 twice a day, potassium 40 mEq twice a day, Mevacor, Lasix 80 mg in the morning and 40 mg in the evening Bentyl, Coumadin 2 mg daily. At the time of my examination this morning, patient is sitting up in his bedside, denies any dizziness at present. Past Medical History Past Medical History: Atrial Fibrillation, Heart Failure, CVA/TIA, GERD/Reflux, Hearing Disorder / Deafness, Hyperlipidemia, Hypertension, Memory Impairment, Myocardial Infarction (SD), Osteoarthritis (OA), Prostate Disorder, Respiratory Disorder, Thyroid Disorder Additional Past Medical History / Comment(s): stroke behind rt eye-poor vision, macular degeneration harris eyes, migraine & cluster headaches,, SD's x 2 ( age unknown), cardiomyopathy, hole in stomach from excedrin -it caused aspiration after which he was in an induced coma and on a ventilator for 9 days, sarcoidosis of lungs, abdominal and stomach pain, frequent diarrhea, several head injuries as a child, arthiritis bilateral knees and hips, multiple lipomas , kidney stones, enlarged prostate. Last Myocardial Infarction Date:: unknown History of Any Multi-Drug Resistant Organisms: MRSA Date of last positivie culture/infection: 08/15/09 MDRO Source:: LUNGS Past Surgical History: AICD, Bowel Resection, Heart Catheterization With Stent, Hernia Repair, Orthopedic Surgery, Pacemaker, Prostate Surgery, Tonsillectomy Additional Past Surgical History / Comment(s): 12/28/14 Lap jose fundoplasty with mesh and lap lysis of adhesions. Other SX: AICD 2008 with replacement 2013 (medtronic), 1995 bowel resection d/t perforation with colostomy with eventual reversal of colostomy, 2009-surgery for "hole in stomach", 2007 blephoplasty bilaterally, 2001 deviated septum, 2003 TURP, 1975 vasectomy, 2012 R rotator cuff, surgery on "head" due to injuries, numerous lipoma removals -4 from L leg, 05/2014, 08/2013 EGD for removal of dentist spray nozzle, [facility] vasectomy, lithrotripsy, bilateral inquinal hernia repairs with R side done x3, cardiac caths with stents Past Anesthesia/Blood Transfusion Reactions: Postoperative Nausea & Vomiting ( PONV) Additional Past Anesthesia/Blood Transfusion Reaction / Comment(s): Pt has never recieved blood Date of Last Stent Placement:: 2007 Type of Cardiac Device: AICD Device Placement Date:: 08/2013 Medtronic Smoking Status: Former smoker - Past Family History Brother(s) Family Medical History: Cancer Additional Family Medical History / Comment(s): Patient has 2 brothers that are both alive. One has history of prostate cancer. Father Family Medical History: Renal Disease, Respiratory Disorder Additional Family Medical History / Comment(s): Father at age 75 from renal failure. Mother Family Medical History: Coronary Artery Disease (CAD), Dementia Additional Family Medical History / Comment(s): Mother dies at age 94 from Alzheimer dementia. Sister(s) Family Medical History: Osteoarthritis (OA) Additional Family Medical History / Comment(s): Patient has one sister with osteoarthritis. Medications and Allergies Home Medications Medication Instructions Recorded Confirmed Type Albuterol Sulfate [Proair Hfa] 2 puff INHALATION RT-TID PRN 10/27/13 05/06/18 History Dicyclomine [Bentyl] 20 mg PO AC-TID 10/27/13 05/06/18 History Lovastatin [Mevacor] 40 mg PO HS 10/27/13 05/06/18 History Fludrocortisone [Florinef] 0.1 mg PO BID 02/27/15 05/06/18 History Citalopram Hydrobromide 20 mg PO BID 03/27/16 05/06/18 History [Citalopram HBr] Finasteride [Proscar] 5 mg PO HS 03/27/16 05/06/18 History Levothyroxine Sodium [Synthroid] 25 mcg PO DAILY 03/27/16 05/06/18 History Midodrine HCl [ProAmatine] 10 mg PO BID 02/24/18 05/06/18 History Warfarin [Coumadin] 2.5 mg PO HS 02/24/18 05/06/18 History Tamsulosin [Flomax] 0.4 mg PO HS 04/03/18 05/06/18 History Hydrocortisone [Cortef] 10 mg PO BID #0 04/08/18 05/06/18 Rx Potassium Chloride [Klor-Con 20] 40 meq PO BID #120 tab 04/08/18 05/06/18 Rx Amiodarone [Cordarone] 200 mg PO BID 04/24/18 05/06/18 History Metolazone [Zaroxolyn] 2.5 mg PO DAILY 04/24/18 05/06/18 History Sacubitril/Valsartan [Entresto 24 1 tab PO HS 04/24/18 05/06/18 History mg-26 mg Tablet] Spironolactone [Aldactone] 12.5 mg PO DAILY 04/24/18 05/06/18 History Carvedilol [Coreg] 3.125 mg PO BID 05/06/18 05/06/18 History Furosemide [Lasix] 40 mg PO DAILY@1600 05/06/18 05/06/18 History Furosemide [Lasix] 80 mg PO QAM 05/06/18 05/06/18 History clonazePAM 0.25 mg PO HS 05/06/18 05/06/18 History Allergies Allergy/AdvReac Type Severity Reaction Status Date / Time Iodinated Contrast- Oral and Allergy Rash/Hives Verified 05/06/18 15:09 IV Dye [Iodinated Contrast Media - IV Dye] nitroglycerin Allergy passed out Verified 05/06/18 15:09 adhesive AdvReac SKIN TURNS Verified 05/06/18 15:09 RED piperacillin sodium AdvReac Confusion Verified 05/06/18 15:09 [From Zosyn] tazobactam sodium AdvReac Confusion Verified 05/06/18 15:09 [From Zosyn] Physical Exam Vitals: Vital Signs Temp Pulse Pulse Resp BP BP BP 05/07/18 05:01 83 15 05/07/18 01:33 16 05/07/18 01:15 98.3 F 73 16 110/71 05/07/18 00:43 80 16 102/68 05/06/18 21:31 97.9 F 77 16 94/67 05/06/18 19:00 75 18 97/69 05/06/18 18:00 67 18 95/65 05/06/18 17:50 72 18 95/65 05/06/18 17:00 68 18 106/85 05/06/18 16:12 82/56 106/85 05/06/18 16:00 71 18 86/56 05/06/18 15:08 97.5 F L 80 16 101/68 BP Pulse Ox 05/07/18 05:01 92/53 92 L 05/07/18 01:33 05/07/18 01:15 94 L 05/07/18 00:43 98 05/06/18 21:31 97 05/06/18 19:00 94 L 05/06/18 18:00 92 L 05/06/18 17:50 94 L 05/06/18 17:00 94 L 05/06/18 16:12 86/56 05/06/18 16:00 96 05/06/18 15:08 96 Intake and Output 05/06/18 05/07/18 05/07/18 22:59 06:59 14:59 Intake Total 800 240 Balance 800 240 Intake: Intake, IV Titration 800 Amount Sodium Chloride 0.9% 1, 800 000 ml @ 100 mls/hr IV . Q10H ONE Rx#:[id number] Oral 240 Other: Voiding Method Toilet Urinal # Voids 1 Weight 65.317 kg 61.7 kg PHYSICAL EXAMINATION: GENERAL: 72-year-old gentleman in no acute distress at the time of my examination. HEENT: Head is atraumatic, normocephalic. Pupils equal, round. Sclera anicteric. Conjunctiva are clear. Mucous membranes of the mouth are moist. Neck is supple. There is no elevated jugular venous pressure.] bruit is heard. HEART EXAMINATION: Heart S1 and S2 irregularly irregular a systolic ejection murmur is heard. CHEST EXAMINATION: Lungs are clear to auscultation and precussion. No chest wall tenderness is noted on palpation or with deep breathing. ABDOMEN: Soft, nontender. Bowel sounds are heard. No organomegaly noted. EXTREMITIES: 2+ peripheral pulses with no evidence of peripheral edema and no calf tenderness noted. NEUROLOGIC patient is awake, alert and oriented 3 . Results 05/07/18 06:02 05/07/18 06:02 Cardiac Enzymes 05/06/18 05/06/18 Range/Units 16:23 16:23 AST 23 (17-59) U/L CK-MB (CK-2) 0.6 (0.0-2.4) ng/mL Troponin I <0.012 (0.000-0.034) ng/mL Coagulation 05/06/18 Range/Units 16:23 PT 12.1 H (9.0-12.0) sec APTT 22.7 (22.0-30.0) sec CBC 05/06/18 05/07/18 Range/Units 16:23 06:02 WBC 9.3 8.9 (3.8-10.6) k/uL RBC 4.00 L 3.79 L (4.30-5.90) m/uL Hgb 11.9 L 11.5 L (13.0-17.5) gm/dL Hct 37.9 L 36.7 L (39.0-53.0) % Plt Count 252 200 (150-450) k/uL Comprehensive Metabolic Panel 05/06/18 05/07/18 Range/Units 16:23 06:02 Sodium 136 L 139 (137-145) mmol/L Potassium 5.1 4.0 (3.5-5.1) mmol/L Chloride 95 L 98 (98-107) mmol/L Carbon Dioxide 34 H 37 H (22-30) mmol/L BUN 60 H 51 H (9-20) mg/dL Creatinine 2.59 H 2.46 H (0.66-1.25) mg/dL Glucose 111 H 79 (74-99) mg/dL Calcium 8.9 8.5 (8.4-10.2) mg/dL AST 23 (17-59) U/L ALT 27 (21-72) U/L Alkaline Phosphatase 47 (38-126) U/L Total Protein 6.4 (6.3-8.2) g/dL Albumin 3.4 L (3.5-5.0) g/dL Intake and Output 05/06/18 05/07/18 05/07/18 22:59 06:59 14:59 Intake Total 800 240 Balance 800 240 Intake: Intake, IV Titration 800 Amount Sodium Chloride 0.9% 1, 800 000 ml @ 100 mls/hr IV . Q10H ONE Rx#:[id number] Oral 240 Other: Voiding Method Toilet Urinal # Voids 1 Weight 65.317 kg 61.7 kg 05/07/18 06:02 05/07/18 06:02 EKG Interpretations (text) EKG shows atrial fibrillation with nonspecific ST-T wave changes, controlled ventricular response. Assessment and Plan Plan: Assessment and plan #1 symptoms of dizziness and near syncope, evidence of orthostatic hypotension. #2 known history of chronic persistent atrial fibrillation, on Coumadin for anticoagulation, INR subtherapeutic at 1.2. #3 nonischemic cardiomyopathy status post single-chamber AICD #4 chronic systolic congestive heart failure #5 hyperlipidemia #6 history of hypertension #7 chronic kidney disease #8 history of ventricular fibrillation Plan We will continue to monitor the patient's orthostatic heart rate and blood pressure every shift. We will hold the patient's Zaroxolyn and Lasix for today , resume his interest oh with parameters for blood pressure, resume amiodarone, Coreg with parameters for blood pressure, and initiate IV heparin until the patient's INR is therapeutic. Resume Florinef and midodrine. We will also recommend the patient wear bilateral LAW hose. Further recommendations to follow. DNP note has been reviewed, I agree with a documented findings and plan of care. Patient was seen and examined.
[2018-05-07] MEDS ORDERED: ALBUTEROL NEBULIZED 2.5 MG/3 ML INHALATION PRN (08:35)
[2018-05-07] MEDS: HEPARIN SOD,PORK IN 0.45% NACL 25,000 UNIT in 0.45% NACL 1 250ML.BAG IV SCH (09:26)
[2018-05-07] MEDS: POTASSIUM CHLORIDE ER 20 MEQ TAB.ER PO SCH ×2 (09:27→20:07)
[2018-05-07] MEDS: SPIRONOLACTONE 25 MG TAB PO SCH (09:27)
[2018-05-07] MEDS: FUROSEMIDE 80 MG TAB PO SCH (09:27)
[2018-05-07] MEDS: AMIODARONE 200 MG TAB PO SCH ×2 (09:28→20:07)
[2018-05-07] MEDS: CITALOPRAM HYDROBROMIDE 20 MG TAB PO SCH ×2 (09:28→20:07)
[2018-05-07] MEDS: HYDROCORTISONE 10 MG TAB PO SCH ×2 (09:36→20:16)
[2018-05-07] MEDS: METOLAZONE 2.5 MG TAB PO SCH (09:36)
[2018-05-07] MEDS: FLUDROCORTISONE 0.1 MG TAB PO SCH ×2 (09:36→20:16)
[2018-05-07] MEDS: CARVEDILOL 3.125 MG TAB PO SCH ×2 (09:38→16:57)
[2018-05-07 09:42] LABS: Anisocytosis Slight; Basophils # (A) 0.1 k/uL (0-0.2); Basophils % (A) 1 %; Eosinophils # (A) 0.4 k/uL (0-0.7); Eosinophils % (A) 5 %; HCT 37.2 % (39.0-53.0); HGB 11.8 gm/dL (13.0-17.5); Lymphocytes # (A) 1.3 k/uL (1.0-4.8); Lymphocytes % (A) 17 %; MCH 30.6 pg (25.0-35.0); MCHC 31.7 g/dL (31.0-37.0); MCV 96.5 fL (80.0-100.0); Macrocytosis Slight; Mean Platelet Volume 7.6; Monocytes % (A) 13 %; Neutrophils # (A) 4.9 k/uL (1.3-7.7); Neutrophils % (A) 62 %; Platelet Count 211 k/uL (150-450); RBC 3.85 m/uL (4.30-5.90); RDW 19.3 % (11.5-15.5)
[2018-05-07 09:49] LABS: INR 1.2 (<1.2); Partial Thromboplastin Time 22.3 sec (22.0-30.0); Prothrombin Time 12.6 sec (9.0-12.0)
[2018-05-07] MEDS: MIDODRINE 5 MG TAB PO SCH ×2 (12:30→16:57)
[2018-05-07] MEDS: DICYCLOMINE 20 MG TAB PO SCH ×2 (12:30→16:57)
[2018-05-07] MEDS: LEVOTHYROXINE 25 MCG TAB PO SCH (12:31)
--- NOTE | 2018-05-07 12:55 | ECHOF ---
Referral Reason:dizziness MEASUREMENTS -------- HEIGHT: 180.3 cm WEIGHT: 61.7 kg BP: 96/53 RVIDd: 3.5 cm (< 3.3) IVSd: 1.2 cm (0.6 - 1.1) LVIDd: 6.1 cm (3.9 - 5.3) LVPWd: 1.0 cm (0.6 - 1.1) IVSs: 1.3 cm LVIDs: 5.5 cm LVPWs: 1.2 cm LAESV Index (A-L): 102.67 ml/m Ao Diam: 3.2 cm (2.0 - 3.7) AV Cusp: 1.7 cm (1.5 - 2.6) LA Diam: 5.1 cm (2.7 - 3.8) EPSS: 1.6 cm MV E Siva: 0.92 m/s MV DecT: 219 ms MV A Siva: 0.33 m/s MV E/A Ratio: 2.78 RAP: 5.00 mmHg RVSP: 29.99 mmHg MV EF SLOPE: 106.09 mm/s (70 - 150) MV EXCURSION: 1.90 cm (> 18.000) FINDINGS -------- Undetermined rhythm. This was a technically good study. The left ventricle is mildly dilated. There is borderline concentric left ventricular hypertrophy. There is severe global hypokinesis of LV . Overall left ventricular systolic function is severely impaired with, an EF between 20 - 25 %. The right ventricle is mildly enlarged. LA is severely dilated >40 ml/m2 The right atrium is markedly enlarged. Electronic pacemaker lead seen in the right ventricular cavi ty. Aortic valve is trileaflet and is mildly thickened. There is no evidence of aortic regurgitation. There is no evidence of aortic stenosis. The mitral valve leaflets are mildly thickened. Mild mitral annular calcification present. Severe mitral regurgitation is present. Non-mobile posterior mitral valve leaflet. Moderate tricuspid regurgitation present. There is no evidence of pulmonary hypertension. The rig ht ventricular systolic pressure, as measured by Doppler, is 29.99mmHg. Trace/mild (physiologic) pulmonic regurgitation. The aortic root size is normal. Normal inferior vena cava with normal inspiratory collapse consistent with estimated right atrial pre ssure of 5 mmHg. CONCLUSIONS -------- 1. Undetermined rhythm. 2. This was a technically good study. 3. The left ventricle is mildly dilated. 4. There is borderline concentric left ventricular hypertrophy. 5. There is severe global hypokinesis of LV . 6. Overall left ventricular systolic function is severely impaired with, an EF between 20 - 25 %. 7. The right ventricle is mildly enlarged. 8. LA is severely dilated >40 ml/m2 9. The right atrium is markedly enlarged. 10. Electronic pacemaker lead seen in the right ventricular cavity. 11. Aortic valve is trileaflet and is mildly thickened. 12. The mitral valve leaflets are mildly thickened. 13. Mild mitral annular calcification present. 14. Severe mitral regurgitation is present. 15. Non-mobile posterior mitral valve leaflet. 16. Moderate tricuspid regurgitation present. 17. There is no evidence of pulmonary hypertension. 18. The right ventricular systolic pressure, as measured by Doppler, is 29.99mmHg. 19. Trace/mild (physiologic) pulmonic regurgitation. 20. The aortic root size is normal. CREATIVE DIRECTOR: Alex Bonds RDCS
[2018-05-07] MEDS ORDERED: FUROSEMIDE 40 MG TAB PO SCH (16:00)
[2018-05-07] MEDS: HEPARIN SODIUM,PORCINE 5,000 UNIT/ML 1 ML VIAL IV PRN (17:16)
--- NOTE | 2018-05-07 17:30 | P.HPIM ---
History of Present Illness H&P Date: 05/07/18 Chief Complaint: near syncope This is a 72-year-old male one of Dr. Patel with a previous medical history significant for hypertension and hypertensive cardiovascular disease, hyperlipidemia, memory impairment, osteoarthritis, history of chronic systolic heart failure, atrial fibrillation, cardiomyopathy with prior AICD implantation , history of hiatal hernia status post Jose fundoplication, admitted to the emergency Secondary to orthostatic hypotension. And acute dehydration with ATN and hypovolemia acute kidney injury. He has symptoms of orthostasis for the past few days, he was seen in the office secondary to orthostatic hypotension, patient was subsequently sent into the emergency room secondary to hypotension and hypovolemia. He has had lightheadedness, especially when he stands up, patient has acclimatize with the blood pressure changes by sitting down after he gets out of bed to allow the blood pressure to equilibrate, he had fallen down 2 days ago without any trauma. Patient might have thought that he had did not pass out. No seizure episodes, no isolated motor weaknesses,patient was subsequently seen in emergency room and had a blood pressure of 79/51. Laboratories in the emergency room [place] 2.59hemoglobin of11.9, pro-BNP 3000troponin of 0.012 glucose of 111. 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, elevated troponin without evidence of acute ischemia, severe nonischemic cardiomyopathy, and was discharged to home with the medications including spironolactone 25 twice a day and Crestor one tablet twice a day , furosemide 80 twice a day, Coreg 6.25 mg twice a day, amiodarone 200 mg 3 times a day, and potassium 40 mg twice a day.he is also to maintain Cortef, Florinef, Midodrine Review of Systems Constitutional: Reports as per HPI, Denies anorexia, Denies chills, Denies chronic headaches, Denies chronic pain, Denies daytime sleepiness, Denies fatigue, Denies fever, Denies lethargy, Denies malaise, Denies night sweats, Denies poor appetite, Denies sweats, Denies weakness, Denies weight gain, Denies weight loss Ears, nose, mouth and throat: Reports as per HPI, Denies ant. neck pain, Denies bleeding gums, Denies dental pain, Denies dysphagia, Denies epistaxis, Denies headache, Denies hoarseness, Denies mouth pain, Denies nasal congestion, Denies nasal discharge, Denies neck fullness/pressure, Denies neck lump, Denies nose pain, Denies odynophagia, Denies post-nasal drip, Denies sinus pain, Denies sinus pressure, Denies swelling in mouth, Denies swelling in throat, Denies sore throat, Denies vertigo, Denies voice changes Cardiovascular: Reports as per HPI, Denies chest pain, Denies claudication, Denies decreased exercise tolerance, Denies dyspnea on exertion, Denies edema, Denies high blood pressure, Denies irregular heart beat, Denies leg edema, Denies lightheadedness, Denies orthopnea, Denies palpitations, Denies paroxysmal nocturnal dyspnea, Denies phlebitis, Denies rapid heart beat, Denies shortness of breath, Denies syncope Respiratory: Reports as per HPI, Denies congestion, Denies cough, Denies cough with sputum, Denies dyspnea, Denies excessive sputum, Denies hemoptysis, Denies home oxygen, Denies pain, Denies pain on inspiration, Denies pleurisy, Denies respiratory infections, Denies sleep apnea, Denies snoring, Denies wheezing Gastrointestinal: Reports as per HPI, Denies abdominal pain, Denies belching, Denies bloating, Denies BRBPR, Denies change in bowel habits, Denies coffee ground emesis, Denies constipation, Denies diarrhea, Denies dyspepsia, Denies early satiety, Denies excessive gas, Denies heartburn, Denies hematemesis, Denies hematochezia, Denies indigestion, Denies jaundice, Denies lactose intolerance, Denies loss of appetite, Denies melena, Denies nausea, Denies vomiting Genitourinary: Reports as per HPI, Reports erectile dysfunction, Denies decreased libido, Denies discharge, Denies dysuria, Denies flank pain, Denies genital pain, Denies genital sores, Denies hematuria, Denies impotence, Denies incontinence, Denies kidney stones, Denies nocturia, Denies polyuria, Denies testicular lump, Denies testicular pain, Denies urinary frequency, Denies urinary hesitancy, Denies urinary retention Musculoskeletal: Reports as per HPI, Reports frequent falls, Denies arm numbness /tingling, Denies atrophy, Denies fractures, Denies gait dysfunction, Denies hot joints, Denies leg numbness/tingling, Denies limitation of motion, Denies loss of height, Denies low back pain, Denies morning stiffness, Denies muscle cramps, Denies muscle weakness, Denies myalgias, Denies neck pain, Denies neck stiffness, Denies prior amputations, Denies redness of joints, Denies shooting arm pain, Denies shooting leg pain Integumentary: Reports as per HPI Neurological: Reports as per HPI Psychiatric: Reports as per HPI, Denies anhedonia, Denies anxiety, Denies anxiety attacks, Denies change in appetite, Denies change in libido, Denies change in sleep habits, Denies confusion, Denies depression, Denies difficulty concentrating, Denies disorientation, Denies hallucinations, Denies hopelessness , Denies hypersomnia, Denies insomnia, Denies irritability, Denies memory loss, Denies mood swings, Denies paranoia, Denies sadness/tearfulness, Denies sleep disturbances, Denies suicidal ideation Endocrine: Reports as per HPI Hematologic/Lymphatic: Reports as per HPI Allergic/Immunologic: Reports as per HPI Past Medical History Past Medical History: Atrial Fibrillation, Heart Failure, CVA/TIA, GERD/Reflux, Hearing Disorder / Deafness, Hyperlipidemia, Hypertension, Memory Impairment, Myocardial Infarction (NM), Osteoarthritis (OA), Prostate Disorder, Respiratory Disorder, Thyroid Disorder Additional Past Medical History / Comment(s): stroke behind rt eye-poor vision, macular degeneration harris eyes, migraine & cluster headaches,, NM's x 2 ( age unknown), cardiomyopathy, hole in stomach from excedrin -it caused aspiration after which he was in an induced coma and on a ventilator for 9 days, sarcoidosis of lungs, abdominal and stomach pain, frequent diarrhea, several head injuries as a child, arthiritis bilateral knees and hips, multiple lipomas , kidney stones, enlarged prostate. Last Myocardial Infarction Date:: unknown History of Any Multi-Drug Resistant Organisms: MRSA Date of last positivie culture/infection: 08/15/09 MDRO Source:: LUNGS Past Surgical History: AICD, Bowel Resection, Heart Catheterization With Stent, Hernia Repair, Orthopedic Surgery, Pacemaker, Prostate Surgery, Tonsillectomy Additional Past Surgical History / Comment(s): 12/28/14 Lap jose fundoplasty with mesh and lap lysis of adhesions. Other SX: AICD 2008 with replacement 2013 (medtronic), 1995 bowel resection d/t perforation with colostomy with eventual reversal of colostomy, 2009-surgery for "hole in stomach", 2007 blephoplasty bilaterally, 2001 deviated septum, 2003 TURP, 1975 vasectomy, 2012 R rotator cuff, surgery on "head" due to injuries, numerous lipoma removals -4 from L leg, 05/2014, 08/2013 EGD for removal of dentist spray nozzle, 1955 [facility] surgery at [facility], 1975 vasectomy, lithrotripsy, bilateral inquinal hernia repairs with R side done x3, cardiac caths with stents Past Anesthesia/Blood Transfusion Reactions: Postoperative Nausea & Vomiting ( PONV) Additional Past Anesthesia/Blood Transfusion Reaction / Comment(s): Pt has never recieved blood Date of Last Stent Placement:: 2007 [facility] Device Placement Date:: 08/2013 Medtronic Smoking Status: Former smoker - Past Family History Brother(s) Family Medical History: Cancer Additional Family Medical History / Comment(s): Patient has 2 brothers that are both alive. One has history of prostate cancer. Father Family Medical History: Renal Disease, Respiratory Disorder Additional Family Medical History / Comment(s): Father at age 75 from renal failure. Mother Family Medical History: Coronary Artery Disease (CAD), Dementia Additional Family Medical History / Comment(s): Mother dies at age 94 from Alzheimer dementia. Sister(s) Family Medical History: Osteoarthritis (OA) Additional Family Medical History / Comment(s): Patient has one sister with osteoarthritis. Medications and Allergies Home Medications Medication Instructions Recorded Confirmed Type Albuterol Sulfate [Proair Hfa] 2 puff INHALATION RT-TID PRN 10/27/13 05/06/18 History Dicyclomine [Bentyl] 20 mg PO AC-TID 10/27/13 05/06/18 History Lovastatin [Mevacor] 40 mg PO HS 10/27/13 05/06/18 History Fludrocortisone [Florinef] 0.1 mg PO BID 02/27/15 05/06/18 History Citalopram Hydrobromide 20 mg PO BID 03/27/16 05/06/18 History [Citalopram HBr] Finasteride [Proscar] 5 mg PO HS 03/27/16 05/06/18 History Levothyroxine Sodium [Synthroid] 25 mcg PO DAILY 03/27/16 05/06/18 History Midodrine HCl [ProAmatine] 10 mg PO BID 02/24/18 05/06/18 History Warfarin [Coumadin] 2.5 mg PO HS 02/24/18 05/06/18 History Tamsulosin [Flomax] 0.4 mg PO HS 04/03/18 05/06/18 History Hydrocortisone [Cortef] 10 mg PO BID #0 04/08/18 05/06/18 Rx Potassium Chloride [Klor-Con 20] 40 meq PO BID #120 tab 04/08/18 05/06/18 Rx Amiodarone [Cordarone] 200 mg PO BID 04/24/18 05/06/18 History Metolazone [Zaroxolyn] 2.5 mg PO DAILY 04/24/18 05/06/18 History Sacubitril/Valsartan [Entresto 24 1 tab PO HS 04/24/18 05/06/18 History mg-26 mg Tablet] Spironolactone [Aldactone] 12.5 mg PO DAILY 04/24/18 05/06/18 History Carvedilol [Coreg] 3.125 mg PO BID 05/06/18 05/06/18 History Furosemide [Lasix] 40 mg PO DAILY@1600 05/06/18 05/06/18 History Furosemide [Lasix] 80 mg PO QAM 05/06/18 05/06/18 History clonazePAM 0.25 mg PO HS 05/06/18 05/06/18 History Allergies Allergy/AdvReac Type Severity Reaction Status Date / Time Iodinated Contrast- Oral and Allergy Rash/Hives Verified 05/06/18 15:09 IV Dye [Iodinated Contrast Media - IV Dye] nitroglycerin Allergy passed out Verified 05/06/18 15:09 adhesive AdvReac SKIN TURNS Verified 05/06/18 15:09 RED piperacillin sodium AdvReac Confusion Verified 05/06/18 15:09 [From Zosyn] tazobactam sodium AdvReac Confusion Verified 05/06/18 15:09 [From Zosyn] Physical Exam Vitals: Vital Signs Temp Pulse Pulse Resp BP BP BP 05/07/18 11:45 98.1 F 88 16 97/57 05/07/18 09:30 107/57 05/07/18 08:30 97.7 F 81 16 79/51 05/07/18 05:01 83 15 05/07/18 01:33 16 05/07/18 01:15 98.3 F 73 16 110/71 05/07/18 00:43 80 16 102/68 05/06/18 21:31 97.9 F 77 16 94/67 05/06/18 19:00 75 18 97/69 05/06/18 18:00 67 18 95/65 05/06/18 17:50 72 18 95/65 05/06/18 17:00 68 18 106/85 BP Pulse Ox 05/07/18 11:45 92 L 05/07/18 09:30 05/07/18 08:30 94 L 05/07/18 05:01 92/53 92 L 05/07/18 01:33 05/07/18 01:15 94 L 05/07/18 00:43 98 05/06/18 21:31 97 05/06/18 19:00 94 L 05/06/18 18:00 92 L 05/06/18 17:50 94 L 05/06/18 17:00 94 L Intake and Output 05/07/18 05/07/18 05/07/18 06:59 14:59 22:59 Intake Total 800 906 Output Total 1200 Balance 800 -294 Intake: Intake, IV Titration 800 Amount Sodium Chloride 0.9% 1, 800 000 ml @ 100 mls/hr IV . Q10H ONE Rx#:[id number] Oral 906 Output: Urine 1200 Other: Voiding Method Toilet Toilet Urinal Urinal # Voids 1 Weight 61.7 kg - Constitutional General appearance: cooperative, no acute distress - EENT Eyes: anicteric sclerae, PERRLA, dentition normal ENT: NA/AT, normal oropharynx - Neck Neck: normal ROM - Respiratory Respiratory: bilateral: CTA, negative: diminished, dullness - Cardiovascular Rhythm: regular Heart sounds: normal: S1, S2 Abnormal Heart Sounds: systolic murmur - Gastrointestinal General gastrointestinal: normal bowel sounds, soft - Neurologic Neurologic: CNII-XII intact - Musculoskeletal Musculoskeletal: gait normal, strength equal bilaterally - Psychiatric Psychiatric: A&O x's 3, appropriate affect, intact judgment & insight Results CBC & Chem 7: 05/07/18 09:10 05/07/18 06:02 Labs: Abnormal Lab Results - Last 24 Hours (Table) 05/06/18 05/06/18 05/06/18 Range/Units 16:23 16:23 16:23 RBC 4.00 L (4.30-5.90) m/uL Hgb 11.9 L (13.0-17.5) gm/dL Hct 37.9 L (39.0-53.0) % RDW 19.2 H (11.5-15.5) % Lymphocytes # 0.8 L (1.0-4.8) k/uL PT (9.0-12.0) sec INR (<1.2) Sodium 136 L (137-145) mmol/L Chloride 95 L (98-107) mmol/L Carbon Dioxide 34 H (22-30) mmol/L BUN 60 H (9-20) mg/dL Creatinine 2.59 H (0.66-1.25) mg/dL Glucose 111 H (74-99) mg/dL Total Creatine Kinase 21 L (55-170) U/L Albumin 3.4 L (3.5-5.0) g/dL 05/06/18 05/07/18 05/07/18 Range/Units 16:23 06:02 06:02 RBC 3.79 L (4.30-5.90) m/uL Hgb 11.5 L (13.0-17.5) gm/dL Hct 36.7 L (39.0-53.0) % RDW 19.2 H (11.5-15.5) % Lymphocytes # (1.0-4.8) k/uL PT 12.1 H (9.0-12.0) sec INR 1.2 H (<1.2) Sodium (137-145) mmol/L Chloride (98-107) mmol/L Carbon Dioxide 37 H (22-30) mmol/L BUN 51 H (9-20) mg/dL Creatinine 2.46 H (0.66-1.25) mg/dL Glucose (74-99) mg/dL Total Creatine Kinase (55-170) U/L Albumin (3.5-5.0) g/dL 05/07/18 05/07/18 Range/Units 09:10 09:10 RBC 3.85 L (4.30-5.90) m/uL Hgb 11.8 L (13.0-17.5) gm/dL Hct 37.2 L (39.0-53.0) % RDW 19.3 H (11.5-15.5) % Lymphocytes # (1.0-4.8) k/uL PT 12.6 H (9.0-12.0) sec INR 1.2 H (<1.2) Sodium (137-145) mmol/L Chloride (98-107) mmol/L Carbon Dioxide (22-30) mmol/L BUN (9-20) mg/dL Creatinine (0.66-1.25) mg/dL Glucose (74-99) mg/dL Total Creatine Kinase (55-170) U/L Albumin (3.5-5.0) g/dL Thrombosis Risk Factor Assmnt - DVT/VTE Prophylaxis DVT/VTE Prophylaxis: Low risk, early ambulation encouraged - Choose All That Apply Any of the Below Risk Factors Present?: No Each Risk Factor Represents 2 Points: Age 61-74 years Thrombosis Risk Factor Assessment Total Risk Factor Score: 2 Thrombosis Risk Factor Assessment Level: Low Risk Assessment and Plan Plan: 1. Hypovolemia with orthostatic hypotension acute dehydration acute kidney failure with ATN, secondary to diuretic use. Edema has resolved, diuretics has been discontinuedAldactone metolazone and Lasix, IV fluids to be given, currently running between 50 mL an hour, and we'll going to decrease it to 20 mL an hour secondary to severe systolic nonischemic cardiomyopathy.cardiology is on consult ,orthostaticsvital signs to be done might need to adjust midodrine 2.HSV encephalitis, treatment is completed last admission March 2018current encephalopathy 3. Autonomic dysfunction, on Primatene 10 mg twi urine neck 0.1 mg twice a day , Cortef 10 mg twice a day 4. Severe nonischemic cardiomyopathy . diuretics on hold secondary to dehyd cord 2.5 mg twice a day, and an test though 1 at bedtime Coumadin 2.5 mg daily amiodarone 200 mg twice a day. Titration to be made by cardiologyfor amiodarone as well as diuretic 5. Hypertension and hypertensive cardiovascular disease. Hold oral medications. 6. Hyperlipidemia. continue Lipitor. 7. Chronic persistent atrial fibrillation. continueCoumadin repeat INR tomorrow morning. 8. Gastroesophageal reflux disease and hiatal hernia status post Jose fundoplication. We will continue with Protonix 40 mg IV push every 24 hours. 9. Start the patient on stress dose of steroid in the form of hydrocortisone 100 mg IV push every 8 hours and hold Florinef for now as the patient is not awake. 10. enlarge prostate. Patient will be taken off Flomax and Proscar as the patient is not awake. 11. History of pulmonary sarcoidosis stable at this point in time. 12. Edema lower extremities resolved 12. DVT prophylaxis. Continue Lovenox 40 mg subcutaneously every 24 hours. 13. GI prophylaxis. Continue with PPI. 14. Patient is full code.
[2018-05-07] MEDS: TAMSULOSIN 0.4 MG CAP.ER.24H PO SCH (20:07)
[2018-05-07] MEDS: FINASTERIDE 5 MG TAB PO SCH (20:07)
[2018-05-07] MEDS: ATORVASTATIN 10 MG TAB PO SCH (20:07)
[2018-05-07] MEDS: SACUBITRIL/VALSARTAN 24 MG-26 MG TABLET PO SCH (20:16)
[2018-05-07] MEDS ORDERED: WARFARIN 2.5 MG TAB PO SCH (21:00)
[2018-05-07] MEDS: clonazePAM 0.5 MG TAB PO SCH (22:22)
[2018-05-08] MEDS: MIDODRINE 5 MG TAB PO SCH ×2 (06:32→17:15)
[2018-05-08] MEDS: LEVOTHYROXINE 25 MCG TAB PO SCH (06:32)
[2018-05-08] MEDS: DICYCLOMINE 20 MG TAB PO SCH ×3 (06:33→17:14)
[2018-05-08] MEDS: CARVEDILOL 3.125 MG TAB PO SCH ×2 (06:33→17:14)
[2018-05-08] MEDS: CITALOPRAM HYDROBROMIDE 20 MG TAB PO SCH ×2 (08:54→20:40)
[2018-05-08] MEDS: FLUDROCORTISONE 0.1 MG TAB PO SCH ×2 (08:54→20:40)
[2018-05-08] MEDS: AMIODARONE 200 MG TAB PO SCH ×2 (08:54→20:40)
[2018-05-08] MEDS: SPIRONOLACTONE 25 MG TAB PO SCH (08:54)
[2018-05-08] MEDS: HYDROCORTISONE 10 MG TAB PO SCH ×2 (08:54→20:41)
[2018-05-08] MEDS: POTASSIUM CHLORIDE ER 20 MEQ TAB.ER PO SCH ×2 (08:54→20:45)
[2018-05-08 09:16] LABS: Anisocytosis Slight; Basophils # (A) 0.1 k/uL (0-0.2); Basophils % (A) 1 %; Eosinophils # (A) 0.3 k/uL (0-0.7); Eosinophils % (A) 3 %; HCT 36.9 % (39.0-53.0); HGB 12.2 gm/dL (13.0-17.5); Lymphocytes # (A) 1.2 k/uL (1.0-4.8); Lymphocytes % (A) 16 %; MCH 31.2 pg (25.0-35.0); MCHC 32.9 g/dL (31.0-37.0); MCV 94.9 fL (80.0-100.0); Macrocytosis Slight; Mean Platelet Volume 7.9; Monocytes # (A) 0.9 k/uL (0-1.0); Monocytes % (A) 12 %; Neutrophils # (A) 4.9 k/uL (1.3-7.7); Neutrophils % (A) 65 %; Platelet Count 197 k/uL (150-450); RBC 3.89 m/uL (4.30-5.90); RDW 18.2 % (11.5-15.5); WBC 7.6 k/uL (3.8-10.6)
[2018-05-08 09:34] LABS: Calcium 8.7 mg/dL (8.4-10.2)
[2018-05-08 12:24] LABS: INR 1.2 (<1.2); Prothrombin Time 12.8 sec (9.0-12.0)
[2018-05-08] MEDS: FUROSEMIDE 80 MG TAB PO SCH (12:58)
[2018-05-08] MEDS: METOLAZONE 2.5 MG TAB PO SCH (12:59)
--- NOTE | 2018-05-08 14:55 | P.PN ---
Subjective Progress Note Date: 05/08/18 This is a 72-year-old male one of Dr. Patel with a previous medical history significant for hypertension and hypertensive cardiovascular disease, hyperlipidemia, memory impairment, osteoarthritis, history of chronic systolic heart failure, atrial fibrillation, cardiomyopathy with prior AICD implantation , history of hiatal hernia status post Swapnil fundoplication, admitted to the emergency Secondary to orthostatic hypotension. And acute dehydration with ATN and hypovolemia acute kidney injury. He has symptoms of orthostasis for the past few days, he was seen in the office secondary to orthostatic hypotension, patient was subsequently sent into the emergency room secondary to hypotension and hypovolemia. He has had lightheadedness, especially when he stands up, patient has acclimatize with the blood pressure changes by sitting down after he gets out of bed to allow the blood pressure to equilibrate, he had fallen down 2 days ago without any trauma. Patient might have thought that he had did not pass out. No seizure episodes, no isolated motor weaknesses,patient was subsequently seen in emergency room and had a blood pressure of 79/51. Laboratories in the emergency room [place] 2.59hemoglobin of11.9, pro-BNP 3000troponin of 0.012 glucose of 111. 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 ivf at 20cc/hr. Patient can ambulate in the hallway with assistance, and supervision. Lasix currently is on hold, patient is on IV heparin,on Coumadin 2.5, INr 1.2 blood pressure systolic 89, we'll going to increase midodrin 10 mg 3 times a day add aDDITIONAL COUMADIN 0.5 mg tonite total dose 0f 3 mg. patient wants to go home tomorrow however this would be an unwise premature discharge antipate discharge or friday. Review of Systems Constitutional: Reports as per HPI, Denies anorexia, Denies chills, Denies chronic headaches, Denies chronic pain, Denies daytime sleepiness, Denies fatigue, Denies fever, Denies lethargy, Denies malaise, Denies night sweats, Denies poor appetite, Denies sweats, Denies weakness, Denies weight gain, Denies weight loss Ears, nose, mouth and throat: Reports as per HPI, Denies ant. neck pain, Denies bleeding gums, Denies dental pain, Denies dysphagia, Denies epistaxis, Denies headache, Denies hoarseness, Denies mouth pain, Denies nasal congestion, Denies nasal discharge, Denies neck fullness/pressure, Denies neck lump, Denies nose pain, Denies odynophagia, Denies post-nasal drip, Denies sinus pain, Denies sinus pressure, Denies swelling in mouth, Denies swelling in throat, Denies sore throat, Denies vertigo, Denies voice changes Cardiovascular: Reports as per HPI, Denies chest pain, Denies claudication, Denies decreased exercise tolerance, Denies dyspnea on exertion, Denies edema, Denies high blood pressure, Denies irregular heart beat, Denies leg edema, Denies lightheadedness, Denies orthopnea, Denies palpitations, Denies paroxysmal nocturnal dyspnea, Denies phlebitis, Denies rapid heart beat, Denies shortness of breath, Denies syncope Respiratory: Reports as per HPI, Denies congestion, Denies cough, Denies cough with sputum, Denies dyspnea, Denies excessive sputum, Denies hemoptysis, Denies home oxygen, Denies pain, Denies pain on inspiration, Denies pleurisy, Denies respiratory infections, Denies sleep apnea, Denies snoring, Denies wheezing Gastrointestinal: Reports as per HPI, Denies abdominal pain, Denies belching, Denies bloating, Denies BRBPR, Denies change in bowel habits, Denies coffee ground emesis, Denies constipation, Denies diarrhea, Denies dyspepsia, Denies early satiety, Denies excessive gas, Denies heartburn, Denies hematemesis, Denies hematochezia, Denies indigestion, Denies jaundice, Denies lactose intolerance, Denies loss of appetite, Denies melena, Denies nausea, Denies vomiting Genitourinary: Reports as per HPI, Reports erectile dysfunction, Denies decreased libido, Denies discharge, Denies dysuria, Denies flank pain, Denies genital pain, Denies genital sores, Denies hematuria, Denies impotence, Denies incontinence, Denies kidney stones, Denies nocturia, Denies polyuria, Denies testicular lump, Denies testicular pain, Denies urinary frequency, Denies urinary hesitancy, Denies urinary retention Musculoskeletal: Reports as per HPI, Reports frequent falls, Denies arm numbness /tingling, Denies atrophy, Denies fractures, Denies gait dysfunction, Denies hot joints, Denies leg numbness/tingling, Denies limitation of motion, Denies loss of height, Denies low back pain, Denies morning stiffness, Denies muscle cramps, Denies muscle weakness, Denies myalgias, Denies neck pain, Denies neck stiffness, Denies prior amputations, Denies redness of joints, Denies shooting arm pain, Denies shooting leg pain Integumentary: Reports as per HPI Neurological: Reports as per HPI Psychiatric: Reports as per HPI, Denies anhedonia, Denies anxiety, Denies anxiety attacks, Denies change in appetite, Denies change in libido, Denies change in sleep habits, Denies confusion, Denies depression, Denies difficulty concentrating, Denies disorientation, Denies hallucinations, Denies hopelessness , Denies hypersomnia, Denies insomnia, Denies irritability, Denies memory loss, Denies mood swings, Denies paranoia, Denies sadness/tearfulness, Denies sleep disturbances, Denies suicidal ideation Endocrine: Reports as per HPI Hematologic/Lymphatic: Reports as per HPI Allergic/Immunologic: Reports as per HPI Objective - Vital Signs Vital signs: Vital Signs Temp 97.8 F 05/08/18 08:00 Pulse 74 05/08/18 11:59 Resp 16 05/08/18 11:59 BP 95/51 05/08/18 11:59 Pulse Ox 94 L 05/08/18 11:59 Intake & Output 05/07/18 05/08/18 05/08/18 18:59 06:59 18:59 Intake Total 964.213 79.858 538.591 Output Total 1200 1800 1200 Balance -235.787 -1720.142 -661.409 Weight 61.7 kg Intake: Intake, IV Titration 58.213 79.858 76.591 Amount Heparin Sod,Pork in 0.45% 58.213 79.858 76.591 NaCl 25,000 unit In 0.45 % NaCl 1 250ml.bag @ 12 UNITS/KG/HR 7.4 mls/hr IV .Q24H [facility] Rx#:[id number] Oral 906 462 Output: Urine 1200 1800 1200 Other: Voiding Method Toilet Toilet Toilet Urinal Urinal Urinal # Voids 2 - Constitutional General appearance: Present: cooperative, no acute distress, thin - EENT Eyes: Present: anicteric sclerae, EOMI, PERRLA, dentition normal, normal appearance ENT: Present: NA/AT, normal oropharynx - Neck Neck: Present: normal ROM - Respiratory Respiratory: bilateral: CTA, diminished, negative: rales, rhonchi - Cardiovascular Rhythm: irregularly irregular Abnormal Heart Sounds: Present: systolic murmur - Gastrointestinal General gastrointestinal: Present: normal bowel sounds, soft - Integumentary Integumentary: Present: normal, normal turgor - Neurologic Neurologic: Present: CNII-XII intact - Musculoskeletal Musculoskeletal: Present: gait normal, strength equal bilaterally - Psychiatric Psychiatric: Present: A&O x's 3, appropriate affect - Labs CBC & Chem 7: 05/08/18 08:07 05/08/18 08:07 Labs: Abnormal Lab Results - Last 24 Hours (Table) 05/07/18 05/08/18 05/08/18 Range/Units 16:28 00:01 08:07 RBC 3.89 L (4.30-5.90) m/uL Hgb 12.2 L (13.0-17.5) gm/dL Hct 36.9 L (39.0-53.0) % RDW 18.2 H (11.5-15.5) % PT (9.0-12.0) sec INR (<1.2) APTT 35.4 H 66.5 H (22.0-30.0) sec Chloride (98-107) mmol/L Carbon Dioxide (22-30) mmol/L BUN (9-20) mg/dL Creatinine (0.66-1.25) mg/dL 05/08/18 05/08/18 05/08/18 Range/Units 08:07 08:07 08:07 RBC (4.30-5.90) m/uL Hgb (13.0-17.5) gm/dL Hct (39.0-53.0) % RDW (11.5-15.5) % PT 12.8 H (9.0-12.0) sec INR 1.2 H (<1.2) APTT 45.2 H (22.0-30.0) sec Chloride 95 L (98-107) mmol/L Carbon Dioxide 38 H (22-30) mmol/L BUN 50 H (9-20) mg/dL Creatinine 2.33 H (0.66-1.25) mg/dL Assessment and Plan Plan: 1. Hypovolemia with orthostatic hypotension acute dehydration acute kidney failure with ATN, secondary to diuretic use. Edema has resolved, diuretics has been discontinuedAldactone metolazone and Lasix, IV fluids to be given, currently running between 20 mL an hour, gentle hydration secondary to severe systolic nonischemic cardiomyopathy.ef 25%. cardiology is on consult , orthostaticsvital signs to be done. adjust midodrine to 10 mg 3 times a day Lasix currently on hold May 08 2.HSV encephalitis, treatment is completed last admission March 2018current encephalopathy 3. Autonomic dysfunction, on Promatene 10 mg 3 times a day florinef 0.1 mg twice a day, Cortef 10 mg twice a day 4. Severe nonischemic cardiomyopathy EF 20-25% . diuretics on hold secondary to dehyd cord 2.5 mg twice a day, and an test though 1 at bedtime Coumadin 2.5 mg daily amiodarone 200 mg twice a day. Titration to be made by cardiologyfor amiodarone as well as diuretic 5. Hypertension and hypertensive cardiovascular disease. Hold oral medications. 6. Hyperlipidemia. continue Lipitor. 7. Chronic persistent atrial fibrillation. continueCoumadin repeat INR tomorrow morning. 8. Gastroesophageal reflux disease and hiatal hernia status post Swapnil fundoplication. We will continue with Protonix 40 mg IV push every 24 hours. 9. Start the patient on stress dose of steroid in the form of hydrocortisone 100 mg IV push every 8 hours and hold Florinef for now as the patient is not awake. 10. enlarge prostate. Patient will be taken off Flomax and Proscar as the patient is not awake. 11. History of pulmonary sarcoidosis stable at this point in time. 12. Edema lower extremities resolved 12. DVT prophylaxis. Continue Lovenox 40 mg subcutaneously every 24 hours. 13. GI prophylaxis. Continue with PPI. 14. Patient is full code.
[2018-05-08 15:18] VITALS: BMI 18.9
[2018-05-08] MEDS: HEPARIN SOD,PORK IN 0.45% NACL 25,000 UNIT in 0.45% NACL 1 250ML.BAG IV SCH (17:19)
--- NOTE | 2018-05-08 17:23 | CONS ---
CONSULTATION Mr. Godoy is a gentleman with history of nonischemic cardiomyopathy. He came into the hospital with hypovolemia. I stopped his Lasix and metolazone yesterday. He had significant orthostatic changes. He still has them but there is improvement. We will hold both of these agents. Continue his other medications. He also has autonomic dysfunction. He is on a combination of Florinef and midodrine. We will continue both of these. He has no chest pain or shortness of breath. He appears to be quite dry. Vitals are stable. Orthostatic changes persist but improved. There is no JVD. S1-S2 heard normally. Short systolic murmur noted. Lungs reveal improved air entry. Abdomen is soft. Lower extremities reveal no edema. Central system is normal. RECOMMENDATIONS: For now we will hold the metolazone and Lasix but tomorrow we will re-evaluate this and probably introduce an oral agent at a low dose and see how he does provided he does not have any orthostatic changes. Discussed this with the patient and . MARGARET / DANUTAN: [id number] /
[2018-05-08] MEDS ORDERED: WARFARIN 3 MG TAB PO ONE (19:00)
[2018-05-08] MEDS: FINASTERIDE 5 MG TAB PO SCH (20:40)
[2018-05-08] MEDS: ATORVASTATIN 10 MG TAB PO SCH (20:40)
[2018-05-08] MEDS: clonazePAM 0.5 MG TAB PO SCH (20:40)
[2018-05-08] MEDS: SACUBITRIL/VALSARTAN 24 MG-26 MG TABLET PO SCH (20:41)
[2018-05-08] MEDS: TAMSULOSIN 0.4 MG CAP.ER.24H PO SCH (20:44)
[2018-05-08 21:17] VITALS: RESP 18
[2018-05-08] MEDS: HEPARIN SODIUM,PORCINE 5,000 UNIT/ML 1 ML VIAL IV PRN (23:58)
[2018-05-09] MEDS: DICYCLOMINE 20 MG TAB PO SCH ×3 (06:04→17:02)
[2018-05-09] MEDS: MIDODRINE 5 MG TAB PO SCH ×3 (06:04→17:03)
[2018-05-09] MEDS: CARVEDILOL 3.125 MG TAB PO SCH ×2 (06:04→17:02)
[2018-05-09] MEDS: LEVOTHYROXINE 25 MCG TAB PO SCH (06:04)
[2018-05-09 06:53] LABS: Anisocytosis Slight; Basophils # (A) 0.1 k/uL (0-0.2); Basophils % (A) 2 %; Eosinophils # (A) 0.3 k/uL (0-0.7); Eosinophils % (A) 4 %; HCT 36.6 % (39.0-53.0); HGB 11.4 gm/dL (13.0-17.5); Lymphocytes % (A) 14 %; MCH 30.3 pg (25.0-35.0); MCHC 31.2 g/dL (31.0-37.0); Macrocytosis Slight; Mean Platelet Volume 7.6; Monocytes # (A) 0.7 k/uL (0-1.0); Monocytes % (A) 9 %; Neutrophils # (A) 5.1 k/uL (1.3-7.7); Neutrophils % (A) 68 %; Platelet Count 210 k/uL (150-450); RBC 3.78 m/uL (4.30-5.90); RDW 19.1 % (11.5-15.5); WBC 7.5 k/uL (3.8-10.6)
[2018-05-09 06:56] LABS: INR 1.2 (<1.2); Partial Thromboplastin Time 62.6 sec (22.0-30.0); Prothrombin Time 12.7 sec (9.0-12.0)
[2018-05-09 07:05] LABS: Calcium 8.9 mg/dL (8.4-10.2); Potassium 4.5 mmol/L (3.5-5.1)
[2018-05-09] MEDS: FLUDROCORTISONE 0.1 MG TAB PO SCH ×2 (07:58→20:56)
[2018-05-09] MEDS: SPIRONOLACTONE 25 MG TAB PO SCH (07:58)
[2018-05-09] MEDS: CITALOPRAM HYDROBROMIDE 20 MG TAB PO SCH ×2 (07:58→20:55)
[2018-05-09] MEDS: POTASSIUM CHLORIDE ER 20 MEQ TAB.ER PO SCH ×2 (07:58→20:55)
[2018-05-09] MEDS: HYDROCORTISONE 10 MG TAB PO SCH ×2 (07:58→20:56)
[2018-05-09] MEDS: AMIODARONE 200 MG TAB PO SCH ×2 (07:58→20:55)
[2018-05-09] MEDS: METOLAZONE 2.5 MG TAB PO SCH (07:59)
--- NOTE | 2018-05-09 12:25 | P.PN ---
Subjective This is a 72-year-old male one of Dr. Patel with a previous medical history significant for hypertension and hypertensive cardiovascular disease, hyperlipidemia, memory impairment, osteoarthritis, history of chronic systolic heart failure, atrial fibrillation, cardiomyopathy with prior AICD implantation , history of hiatal hernia status post Swapnil fundoplication, admitted to the emergency Secondary to orthostatic hypotension. And acute dehydration with ATN and hypovolemia acute kidney injury. He has symptoms of orthostasis for the past few days, he was seen in the office secondary to orthostatic hypotension, patient was subsequently sent into the emergency room secondary to hypotension and hypovolemia. He has had lightheadedness, especially when he stands up, patient has acclimatize with the blood pressure changes by sitting down after he gets out of bed to allow the blood pressure to equilibrate, he had fallen down 2 days ago without any trauma. Patient might have thought that he had did not pass out. No seizure episodes, no isolated motor weaknesses,patient was subsequently seen in emergency room and had a blood pressure of 79/51. Laboratories in the emergency room [place] 2.59hemoglobin of11.9, pro-BNP 3000troponin of 0.012 glucose of 111. 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 ivf at 20cc/hr. Patient can ambulate in the hallway with assistance, and supervision. Lasix currently is on hold, patient is on IV heparin,on Coumadin 2.5, INr 1.2 blood pressure systolic 89, we'll going to increase midodrin 10 mg 3 times a day add aDDITIONAL COUMADIN 0.5 mg tonite total dose 0f 3 mg. patient wants to go home tomorrow however this would be an unwise premature discharge antipate discharge friday or friday. 05/09: Patient evaluated today, sitting up in bed, with at bedside. Patient and are very anxious for discharge. Patient's orthostatics are still positive and INR is still 1.2. He continues with ambulation in the hallways with assistance. He denies any dyspnea with exertion or chest pain. Cardiology is on consult. He continues with midodrine 10 mg 3 times a day. Objective - Vital Signs Vital signs: Vital Signs Temp 98.2 F 05/09/18 08:03 Pulse 76 05/09/18 08:03 Resp 18 05/09/18 08:03 BP 104/60 05/09/18 08:03 Pulse Ox 94 L 05/09/18 08:03 Intake & Output 05/08/18 05/09/18 05/09/18 18:59 06:59 18:59 Intake Total 573.929 64.596 240 Output Total 1200 650 Balance -626.071 -585.404 240 Weight 61.7 kg 62.1 kg Intake: Intake, IV Titration 111.929 64.596 Amount Heparin Sod,Pork in 0.45% 111.929 64.596 NaCl 25,000 unit In 0.45 % NaCl 1 250ml.bag @ 12 UNITS/KG/HR 7.4 mls/hr IV .Q24H [facility] Rx#:[id number] Oral 462 240 Output: Urine 1200 650 Other: Voiding Method Toilet Toilet Toilet Urinal Urinal Urinal # Voids 1 - Exam - Constitutional General appearance: Present: cooperative, no acute distress, thin - EENT Eyes: Present: anicteric sclerae, EOMI, PERRLA, dentition normal, normal appearance ENT: Present: NA/AT, normal oropharynx - Neck Neck: Present: normal ROM - Respiratory Respiratory: bilateral: CTA, diminished, negative: rales, rhonchi - Cardiovascular Rhythm: irregularly irregular Abnormal Heart Sounds: Present: systolic murmur - Gastrointestinal General gastrointestinal: Present: normal bowel sounds, soft - Integumentary Integumentary: Present: normal, normal turgor - Neurologic Neurologic: Present: CNII-XII intact - Musculoskeletal Musculoskeletal: Present: gait normal, strength equal bilaterally - Psychiatric Psychiatric: Present: A&O x's 3, appropriate affect - Labs CBC & Chem 7: 05/09/18 05:56 05/09/18 05:56 Labs: Abnormal Lab Results - Last 24 Hours (Table) 05/08/18 05/08/18 05/08/18 Range/Units 08:07 17:46 23:14 RBC (4.30-5.90) m/uL Hgb (13.0-17.5) gm/dL Hct (39.0-53.0) % RDW (11.5-15.5) % PT 12.8 H (9.0-12.0) sec INR 1.2 H (<1.2) APTT 39.8 H 40.8 H (22.0-30.0) sec Carbon Dioxide (22-30) mmol/L BUN (9-20) mg/dL Creatinine (0.66-1.25) mg/dL Glucose (74-99) mg/dL 05/09/18 05/09/18 05/09/18 Range/Units 05:56 05:56 05:56 RBC 3.78 L (4.30-5.90) m/uL Hgb 11.4 L (13.0-17.5) gm/dL Hct 36.6 L (39.0-53.0) % RDW 19.1 H (11.5-15.5) % PT 12.7 H (9.0-12.0) sec INR 1.2 H (<1.2) APTT 62.6 H (22.0-30.0) sec Carbon Dioxide 34 H (22-30) mmol/L BUN 47 H (9-20) mg/dL Creatinine 2.33 H (0.66-1.25) mg/dL Glucose 105 H (74-99) mg/dL Assessment and Plan Plan: 1. Hypovolemia with orthostatic hypotension acute dehydration acute kidney failure with ATN, secondary to diuretic use. Edema has resolved, diuretics has been discontinued. Aldactone metolazone and Lasix, IV fluids to be given, currently running between 20 mL an hour, gentle hydration secondary to severe systolic nonischemic cardiomyopathy.ef 25%. cardiology is on consult , orthostaticsvital signs to be done. adjust midodrine to 10 mg 3 times a day 2. 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 Autonomic dysfunction, on Promatene 10 mg 3 times a day florinef 0.1 mg twice a day, Cortef 10 mg twice a day 4. Severe nonischemic cardiomyopathy EF 20-25% . diuretics on hold secondary to dehyd cord 2.5 mg twice a day, and an test though 1 at bedtime Coumadin 2.5 mg daily amiodarone 200 mg twice a day. Titration to be made by cardiologyfor amiodarone as well as diuretic 5. Hypertension and hypertensive cardiovascular disease. Hold oral medications. 6. Hyperlipidemia. continue Lipitor. 7. Chronic persistent atrial fibrillation. continueCoumadin repeat INR tomorrow morning. 8. Gastroesophageal reflux disease and hiatal hernia status post Swapnil fundoplication. We will continue with Protonix 40 mg IV push every 24 hours. 9. Start the patient on stress dose of steroid in the form of hydrocortisone 100 mg IV push every 8 hours and hold Florinef for now as the patient is not awake. 10. enlarge prostate. Patient will be taken off Flomax and Proscar as the patient is not awake. 11. History of pulmonary sarcoidosis stable at this point in time. 12. Edema lower extremities resolved 12. DVT prophylaxis. Continue Lovenox 40 mg subcutaneously every 24 hours. 13. GI prophylaxis. Continue with PPI. 14. Patient is full code. The above impression and plan of care have been discussed and directed by signing physician. Amanda Lopez nurse practitioner acting as scribe for signing physician.
--- NOTE | 2018-05-09 14:13 | P.PN ---
Subjective Progress Note Date: 05/09/18 This is a pleasant 72-year-old gentleman with past medical history significant for chronic persistent atrial fibrillation on long-term anticoagulation, nonischemic cardio myopathy, chronic systolic congestive heart failure, hyperlipidemia, hypertension, valvular heart disease, status post single chamber ICD, chronic kidney disease, history of ventricular fibrillation. He follows regularly with Dr. Cárdenas in the office. Patient was brought to the hospital on this occasion with symptoms of persistent dizziness and near syncope. Patient has had symptoms similar to this in the past and medication adjustments were made, in spite of that he states that whenever he stands up he gets extremely dizzy and nearly passes out. Blood pressure 101/60 with a heart rate in the 80s, 96% on room air. Orthostatics were obtained, blood pressure lying 106/80, sitting 86/50, standing 82/50. Let pressure this morning 92/50. White blood cell count 8.9, hemoglobin 11.5, platelet count 200. Sodium 139, potassium 4.0, BUN 51 and creatinine 2.4. Patient does have a history of known mild renal insufficiency, on the seventh of this month his creatinine was 2.0, on the third of this month it was 1.8. Troponin 0.012, BNP 3000. Chest x-ray shows increasing right lower lobe infiltrate as compared with prior exam. No congestive heart failure. Patient's home medications included Zaroxolyn 2.5 mg daily, Flomax, Entresto, midodrine, Cortef, pro-scar, Cordarone 200 mg by mouth twice a day, Aldactone 12-1/2 mg daily, Synthroid, Florinef, Coreg 3.125 twice a day, potassium 40 mEq twice a day, Mevacor, Lasix 80 mg in the morning and 40 mg in the evening Bentyl, Coumadin 2 mg daily. At the time of my examination this morning, patient is sitting up in his bedside, denies any dizziness at present. 05/09 2018 A shunt seen and examined this morning, he's been up ambulating in the hallway today. Patient continues to have orthostatics which are positive however significantly improved, INR remains at 1.2 today. Overall feeling much better today. We will continue to monitor for at least another 24 hours. Objective - Vital Signs Vital signs: Vital Signs Temp 98.4 F 05/09/18 12:00 Pulse 81 05/09/18 12:00 Resp 18 05/09/18 12:00 BP 112/55 05/09/18 12:00 Pulse Ox 94 L 05/09/18 12:00 Intake & Output 05/08/18 05/09/18 05/09/18 18:59 06:59 18:59 Intake Total 573.929 64.596 240 Output Total 1200 650 Balance -626.071 -585.404 240 Weight 61.7 kg 62.1 kg Intake: Intake, IV Titration 111.929 64.596 Amount Heparin Sod,Pork in 0.45% 111.929 64.596 NaCl 25,000 unit In 0.45 % NaCl 1 250ml.bag @ 12 UNITS/KG/HR 7.4 mls/hr IV .Q24H [facility] Rx#:[id number] Oral 462 240 Output: Urine 1200 650 Other: Voiding Method Toilet Toilet Toilet Urinal Urinal Urinal # Voids 1 - Exam PHYSICAL EXAMINATION: GENERAL: 72-year-old gentleman in no acute distress at the time of my examination. HEENT: Head is atraumatic, normocephalic. Pupils equal, round. Sclera anicteric. Conjunctiva are clear. Mucous membranes of the mouth are moist. Neck is supple. There is no elevated jugular venous pressure.] bruit is heard. HEART EXAMINATION: Heart S1 and S2 irregularly irregular a systolic ejection murmur is heard. CHEST EXAMINATION: Lungs are clear to auscultation and precussion. No chest wall tenderness is noted on palpation or with deep breathing. ABDOMEN: Soft, nontender. Bowel sounds are heard. No organomegaly noted. EXTREMITIES: 2+ peripheral pulses with no evidence of peripheral edema and no calf tenderness noted. NEUROLOGIC patient is awake, alert and oriented 3 - Labs CBC & Chem 7: 05/09/18 05:56 05/09/18 05:56 Labs: Abnormal Lab Results - Last 24 Hours (Table) 05/08/18 05/08/18 05/09/18 Range/Units 17:46 23:14 05:56 RBC 3.78 L (4.30-5.90) m/uL Hgb 11.4 L (13.0-17.5) gm/dL Hct 36.6 L (39.0-53.0) % RDW 19.1 H (11.5-15.5) % PT (9.0-12.0) sec INR (<1.2) APTT 39.8 H 40.8 H (22.0-30.0) sec Carbon Dioxide (22-30) mmol/L BUN (9-20) mg/dL Creatinine (0.66-1.25) mg/dL Glucose (74-99) mg/dL 05/09/18 05/09/18 Range/Units 05:56 05:56 RBC (4.30-5.90) m/uL Hgb (13.0-17.5) gm/dL Hct (39.0-53.0) % RDW (11.5-15.5) % PT 12.7 H (9.0-12.0) sec INR 1.2 H (<1.2) APTT 62.6 H (22.0-30.0) sec Carbon Dioxide 34 H (22-30) mmol/L BUN 47 H (9-20) mg/dL Creatinine 2.33 H (0.66-1.25) mg/dL Glucose 105 H (74-99) mg/dL Assessment and Plan Plan: Assessment and plan #1 symptoms of dizziness and near syncope, evidence of orthostatic hypotension. #2 known history of chronic persistent atrial fibrillation, on Coumadin for anticoagulation, INR subtherapeutic at 1.2. #3 nonischemic cardiomyopathy status post single-chamber AICD #4 chronic systolic congestive heart failure #5 hyperlipidemia #6 history of hypertension #7 chronic kidney disease #8 history of ventricular fibrillation Plan We will give the patient 5 mg of Coumadin today, check PT/INR in the morning. Continue to monitor orthostatics. Plan for possible discharge home in 24-48 hours. DNP note has been reviewed, I agree with a documented findings and plan of care. Patient was seen and examined.
[2018-05-09] MEDS ORDERED: WARFARIN 5 MG TAB PO ONE (18:00)
[2018-05-09] MEDS ORDERED: WARFARIN 3 MG TAB PO SCH (18:00)
[2018-05-09] MEDS: FINASTERIDE 5 MG TAB PO SCH (20:55)
[2018-05-09] MEDS: clonazePAM 0.5 MG TAB PO SCH (20:55)
[2018-05-09] MEDS: ATORVASTATIN 10 MG TAB PO SCH (20:55)
[2018-05-09] MEDS: TAMSULOSIN 0.4 MG CAP.ER.24H PO SCH (20:55)
[2018-05-09] MEDS: SACUBITRIL/VALSARTAN 24 MG-26 MG TABLET PO SCH (20:56)
[2018-05-10 06:11] VITALS: PULSE 76
[2018-05-10 06:18] LABS: Anisocytosis Slight; Basophils # (A) 0.1 k/uL (0-0.2); Basophils % (A) 1 %; Eosinophils # (A) 0.3 k/uL (0-0.7); Eosinophils % (A) 4 %; HCT 33.4 % (39.0-53.0); HGB 10.3 gm/dL (13.0-17.5); Lymphocytes # (A) 0.9 k/uL (1.0-4.8); Lymphocytes % (A) 13 %; MCH 29.8 pg (25.0-35.0); MCHC 30.9 g/dL (31.0-37.0); MCV 96.4 fL (80.0-100.0); Macrocytosis Slight; Mean Platelet Volume 7.7; Monocytes # (A) 0.7 k/uL (0-1.0); Monocytes % (A) 10 %; Neutrophils % (A) 68 %; Platelet Count 205 k/uL (150-450); RBC 3.47 m/uL (4.30-5.90); RDW 19.2 % (11.5-15.5); WBC 7.4 k/uL (3.8-10.6)
[2018-05-10 06:25] LABS: Calcium 8.7 mg/dL (8.4-10.2); Potassium 4.8 mmol/L (3.5-5.1)
[2018-05-10] MEDS: CARVEDILOL 3.125 MG TAB PO SCH (07:09)
[2018-05-10] MEDS: MIDODRINE 5 MG TAB PO SCH ×2 (07:09→12:10)
[2018-05-10] MEDS: LEVOTHYROXINE 25 MCG TAB PO SCH (07:09)
[2018-05-10] MEDS: DICYCLOMINE 20 MG TAB PO SCH ×2 (07:09→12:10)
[2018-05-10 08:04] VITALS: TEMP 98.1
[2018-05-10] MEDS: HYDROCORTISONE 10 MG TAB PO SCH (08:43)
[2018-05-10] MEDS: FLUDROCORTISONE 0.1 MG TAB PO SCH (08:43)
[2018-05-10] MEDS: METOLAZONE 2.5 MG TAB PO SCH (08:43)
[2018-05-10] MEDS: SPIRONOLACTONE 25 MG TAB PO SCH (08:44)
[2018-05-10] MEDS: POTASSIUM CHLORIDE ER 20 MEQ TAB.ER PO SCH (08:44)
[2018-05-10] MEDS: AMIODARONE 200 MG TAB PO SCH (08:44)
[2018-05-10] MEDS: CITALOPRAM HYDROBROMIDE 20 MG TAB PO SCH (08:44)
[2018-05-10 09:08] LABS: INR 1.5 (<1.2); Prothrombin Time 15.1 sec (9.0-12.0)
[2018-05-10] MEDS: HEPARIN SOD,PORK IN 0.45% NACL 25,000 UNIT in 0.45% NACL 1 250ML.BAG IV SCH (09:16)
[2018-05-10 11:34] VITALS: BP 105/59
--- NOTE | 2018-05-10 13:38 | P.DS ---
Providers Date of admission: 05/06/18 17:39 Attending physician: Morena Farooq Consults: 05/06/18 17:38 Consult Physician Urgent Consulting Provider: [facility] Consult Reason/Comments: Near syncope Do you want consulting provider notified?: Yes Primary care physician: Merritt Patel [facility] Hospital Course: This is a 72-year-old male one of Dr. Patel with a previous medical history significant for hypertension and hypertensive cardiovascular disease, hyperlipidemia, memory impairment, osteoarthritis, history of chronic systolic heart failure, atrial fibrillation, cardiomyopathy with prior AICD implantation , history of hiatal hernia status post Swapnil fundoplication, admitted to the emergency Secondary to orthostatic hypotension. And acute dehydration with ATN and hypovolemia acute kidney injury. He has symptoms of orthostasis for the past few days, he was seen in the office secondary to orthostatic hypotension, patient was subsequently sent into the emergency room secondary to hypotension and hypovolemia. He has had lightheadedness, especially when he stands up, patient has acclimatize with the blood pressure changes by sitting down after he gets out of bed to allow the blood pressure to equilibrate, he had fallen down 2 days ago without any trauma. Patient might have thought that he had did not pass out. No seizure episodes, no isolated motor weaknesses,patient was subsequently seen in emergency room and had a blood pressure of 79/51. Laboratories in the emergency room [place] 2.59hemoglobin of11.9, pro-BNP 3000troponin of 0.012 glucose of 111. 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 ivf at 20cc/hr. Patient can ambulate in the hallway with assistance, and supervision. Lasix currently is on hold, patient is on IV heparin,on Coumadin 2.5, INr 1.2 blood pressure systolic 89, we'll going to increase midodrin 10 mg 3 times a day add aDDITIONAL COUMADIN 0.5 mg tonite total dose 0f 3 mg. patient wants to go home tomorrow however this would be an unwise premature discharge antipate discharge friday or friday. 05/09: Patient evaluated today, sitting up in bed, with at bedside. Patient and are very anxious for discharge. Patient's orthostatics are still positive and INR is still 1.2. He continues with ambulation in the hallways with assistance. He denies any dyspnea with exertion or chest pain. Cardiology is on consult. He continues with midodrine 10 mg 3 times a day. 05/10: Patient evaluated today noted to be sitting up, with at bedside. Patient is very anxious for discharge. Patient still slightly orthostatic although improved significantly. He denies any dizziness or near syncope, no chest pain or shortness of breath. INR 1.5, he'll be discharged home, will follow up in the office tomorrow morning for INR check. Discharge diagnoses 1. Hypovolemia with orthostatic hypotension acute dehydration acute kidney failure with ATN, secondary to diuretic use. 2. HSV encephalitis 3. Autonomic dysfunction 4. Severe nonischemic cardiomyopathy EF 20-25% . 5. Hypertension and hypertensive cardiovascular disease. 6. Hyperlipidemia. 7. Chronic persistent atrial fibrillation. 8. Gastroesophageal reflux disease and hiatal hernia status post Swapnil fundoplication. 9. enlarge prostate. 10. History of pulmonary sarcoidosis 11. Edema lower extremities resolved The above impression and plan of care have been discussed and directed by signing physician. Amanda Lopez nurse practitioner acting as scribe for signing physician. Patient Condition at Discharge: Stable Plan - Discharge Summary Discharge Rx Participant: No New Discharge Prescriptions: Continue Lovastatin [Mevacor] 40 mg PO HS Dicyclomine [Bentyl] 20 mg PO AC-TID Albuterol Sulfate [Proair Hfa] 2 puff INHALATION RT-TID PRN PRN Reason: Dyspnea Fludrocortisone [Florinef] 0.1 mg PO BID Levothyroxine Sodium [Synthroid] 25 mcg PO DAILY Finasteride [Proscar] 5 mg PO HS Citalopram Hydrobromide [Citalopram HBr] 20 mg PO BID Tamsulosin [Flomax] 0.4 mg PO HS Potassium Chloride [Klor-Con 20] 40 meq PO BID #120 tab Hydrocortisone [Cortef] 10 mg PO BID #0 Amiodarone [Cordarone] 200 mg PO BID Metolazone [Zaroxolyn] 2.5 mg PO DAILY Sacubitril/Valsartan [Entresto 24 mg-26 mg Tablet] 1 tab PO HS Spironolactone [Aldactone] 12.5 mg PO DAILY Carvedilol [Coreg] 3.125 mg PO BID clonazePAM 0.25 mg PO HS Changed Midodrine HCl [ProAmatine] 10 mg PO TID #0 Warfarin [Coumadin] 5 mg PO HS #0 Discontinued Furosemide [Lasix] 80 mg PO QAM Furosemide [Lasix] 40 mg PO DAILY@1600 Discharge Medication List Albuterol Sulfate [Proair Hfa] 2 puff INHALATION RT-TID PRN 10/27/13 [History] Dicyclomine [Bentyl] 20 mg PO AC-TID 10/27/13 [History] Lovastatin [Mevacor] 40 mg PO HS 10/27/13 [History] Fludrocortisone [Florinef] 0.1 mg PO BID 02/27/15 [History] Citalopram Hydrobromide [Citalopram HBr] 20 mg PO BID 03/27/16 [History] Finasteride [Proscar] 5 mg PO HS 03/27/16 [History] Levothyroxine Sodium [Synthroid] 25 mcg PO DAILY 03/27/16 [History] Tamsulosin [Flomax] 0.4 mg PO HS 04/03/18 [History] Hydrocortisone [Cortef] 10 mg PO BID #0 04/08/18 [Rx] Potassium Chloride [Klor-Con 20] 40 meq PO BID #120 tab 04/08/18 [Rx] Amiodarone [Cordarone] 200 mg PO BID 04/24/18 [History] Metolazone [Zaroxolyn] 2.5 mg PO DAILY 04/24/18 [History] Sacubitril/Valsartan [Entresto 24 mg-26 mg Tablet] 1 tab PO HS 04/24/18 [History ] Spironolactone [Aldactone] 12.5 mg PO DAILY 04/24/18 [History] Carvedilol [Coreg] 3.125 mg PO BID 05/06/18 [History] clonazePAM 0.25 mg PO HS 05/06/18 [History] Midodrine HCl [ProAmatine] 10 mg PO TID #0 05/10/18 [Rx] Warfarin [Coumadin] 5 mg PO HS #0 05/10/18 [Rx] Follow up Appointment(s)/Referral(s): Lis Cárdenas MD [STAFF PHYSICIAN] - 1 Week Merritt Patel MD [Primary Care Provider] - 1-2 days (Please call and make follow up appointment Friday) Patient Instructions/Handouts: Syncope (DC), Hypotension (DC) Discharge Disposition: HOME SELF-CARE
--- NOTE | 2018-05-10 14:30 | P.PN ---
Subjective Progress Note Date: 05/10/18 This is a pleasant 72-year-old gentleman with past medical history significant for chronic persistent atrial fibrillation on long-term anticoagulation, nonischemic cardio myopathy, chronic systolic congestive heart failure, hyperlipidemia, hypertension, valvular heart disease, status post single chamber ICD, chronic kidney disease, history of ventricular fibrillation. He follows regularly with Dr. Cárdenas in the office. Patient was brought to the hospital on this occasion with symptoms of persistent dizziness and near syncope. Patient has had symptoms similar to this in the past and medication adjustments were made, in spite of that he states that whenever he stands up he gets extremely dizzy and nearly passes out. Blood pressure 101/60 with a heart rate in the 80s, 96% on room air. Orthostatics were obtained, blood pressure lying 106/80, sitting 86/50, standing 82/50. Let pressure this morning 92/50. White blood cell count 8.9, hemoglobin 11.5, platelet count 200. Sodium 139, potassium 4.0, BUN 51 and creatinine 2.4. Patient does have a history of known mild renal insufficiency, on the seventh of this month his creatinine was 2.0, on the third of this month it was 1.8. Troponin 0.012, BNP 3000. Chest x-ray shows increasing right lower lobe infiltrate as compared with prior exam. No congestive heart failure. Patient's home medications included Zaroxolyn 2.5 mg daily, Flomax, Entresto, midodrine, Cortef, pro-scar, Cordarone 200 mg by mouth twice a day, Aldactone 12-1/2 mg daily, Synthroid, Florinef, Coreg 3.125 twice a day, potassium 40 mEq twice a day, Mevacor, Lasix 80 mg in the morning and 40 mg in the evening Bentyl, Coumadin 2 mg daily. At the time of my examination this morning, patient is sitting up in his bedside, denies any dizziness at present. 05/09 2018 Patient seen and examined this morning, he's been up ambulating in the hallway today. Patient continues to have orthostatics which are positive however significantly improved, INR remains at 1.2 today. Overall feeling much better today. We will continue to monitor for at least another 24 hours. 05/10: patient denies having any dizziness or lightheadedness, no loss consciousness. He has been ambulatory without difficulty. No chest pain or shortness of breath. repeat orthostatics today have been negative. He has been afebrile, pulse ox 95% on room air. hemoglobin 10.3, INR 1.5, BUN 40 creatinine 2.01. Patient is cleared for discharge from cardiology. Objective - Vital Signs Vital signs: Vital Signs Temp 98.1 F 05/10/18 08:00 Pulse 76 05/10/18 08:00 Resp 18 05/10/18 08:00 BP 105/59 05/10/18 11:34 Pulse Ox 95 05/10/18 08:00 Intake & Output 05/09/18 05/10/18 05/10/18 18:59 06:59 18:59 Intake Total 480 240 240 Output Total 650 300 Balance 480 -410 -60 Weight 62 kg Intake: Oral 480 240 240 Output: Urine 650 300 Other: Voiding Method Toilet Toilet Urinal Urinal # Voids 1 - Exam GENERAL: 72-year-old gentleman in no acute distress at the time of my examination. HEENT: Head is atraumatic, normocephalic. Pupils equal, round. Sclera anicteric. Conjunctiva are clear. Mucous membranes of the mouth are moist. Neck is supple. There is no elevated jugular venous pressure.] bruit is heard. HEART EXAMINATION: Heart S1 and S2 irregularly irregular a systolic ejection murmur is heard. CHEST EXAMINATION: Lungs are clear to auscultation and precussion. No chest wall tenderness is noted on palpation or with deep breathing. ABDOMEN: Soft, nontender. Bowel sounds are heard. No organomegaly noted. EXTREMITIES: 2+ peripheral pulses with no evidence of peripheral edema and no calf tenderness noted. NEUROLOGIC patient is awake, alert and oriented 3 - Labs CBC & Chem 7: 05/10/18 05:35 05/10/18 05:35 Labs: Abnormal Lab Results - Last 24 Hours (Table) 05/10/18 05/10/18 05/10/18 Range/Units 05:35 05:35 05:35 RBC 3.47 L (4.30-5.90) m/uL Hgb 10.3 L (13.0-17.5) gm/dL Hct 33.4 L (39.0-53.0) % MCHC 30.9 L (31.0-37.0) g/dL RDW 19.2 H (11.5-15.5) % Lymphocytes # 0.9 L (1.0-4.8) k/uL PT (9.0-12.0) sec INR (<1.2) APTT 49.3 H (22.0-30.0) sec Carbon Dioxide 32 H (22-30) mmol/L BUN 40 H (9-20) mg/dL Creatinine 2.01 H (0.66-1.25) mg/dL 05/10/18 Range/Units 05:35 RBC (4.30-5.90) m/uL Hgb (13.0-17.5) gm/dL Hct (39.0-53.0) % MCHC (31.0-37.0) g/dL RDW (11.5-15.5) % Lymphocytes # (1.0-4.8) k/uL PT 15.1 H (9.0-12.0) sec INR 1.5 H (<1.2) APTT (22.0-30.0) sec Carbon Dioxide (22-30) mmol/L BUN (9-20) mg/dL Creatinine (0.66-1.25) mg/dL Assessment and Plan Plan: #1 symptoms of dizziness and near syncope, evidence of orthostatic hypotension. #2 known history of chronic persistent atrial fibrillation, on Coumadin for anticoagulation. #3 nonischemic cardiomyopathy status post single-chamber AICD #4 chronic systolic heart failure #5 hyperlipidemia #6 history of hypertension #7 chronic kidney diseasestage III #8 history of ventricular fibrillation Plan patient will continue same medications for home as here. Patient is cleared for discharge from cardiology. Follow-up with Dr. Cárdenas in one week Nurse Practitioner note has been reviewed, I agree with a documented findings and plan of care. Patient was seen and examined.
== END 2018-05-10 13:10 | disposition home or self-care (01) | DRG 683 ==
LOC: EC 15:05 → 3SCARD 17:39
PROVIDERS: ADMIT Family Medicine; ATTEND Family Medicine
DX: N17.0 Acute kidney failure with tubular necrosis (principal); I13.0 Hypertensive heart and chronic kidney disease with heart failure and stage 1 through stage 4 chronic kidney disease, or unspecified chronic kidney disease; I42.9 Cardiomyopathy, unspecified; I48.1 Persistent atrial fibrillation; I50.22 Chronic systolic (congestive) heart failure; D86.9 Sarcoidosis, unspecified; E78.5 Hyperlipidemia, unspecified; E86.0 Dehydration; E86.1 Hypovolemia; G90.9 Disorder of the autonomic nervous system, unspecified; H91.90 Unspecified hearing loss, unspecified ear; I25.2 Old myocardial infarction; I48.2 Chronic atrial fibrillation; I95.1 Orthostatic hypotension; K21.9 Gastro-esophageal reflux disease without esophagitis; K44.9 Diaphragmatic hernia without obstruction or gangrene; N18.9 Chronic kidney disease, unspecified; T50.2X5A Adverse effect of carbonic-anhydrase inhibitors, benzothiadiazides and other diuretics, initial encounter; Z79.01 Long term (current) use of anticoagulants; Z79.890 Hormone replacement therapy; Z82.0 Family history of epilepsy and other diseases of the nervous system; Z82.49 Family history of ischemic heart disease and other diseases of the circulatory system; Z86.73 Personal history of transient ischemic attack (TIA), and cerebral infarction without residual deficits; Z86.79 Personal history of other diseases of the circulatory system; Z87.891 Personal history of nicotine dependence; Z95.810 Presence of automatic (implantable) cardiac defibrillator; Z88.8 Allergy status to other drugs, medicaments and biological substances; Z91.041 Radiographic dye allergy status
CPT/HCPCS: 36415; 71046; 80048; 80053; 82550; 82553; 83735; 83880; 84484; 85025; 85610; 85730; 93005; 93306; 96360; 96361; 99285

== ENCOUNTER 2018-07-06 13:57 | Emergency (ER) | payer MEDICARE ==
[2018-07-06 14:09] VITALS: BP 113/60; PULSE 84; RESP 18; TEMP 97.9
--- NOTE | 2018-07-06 14:23 | ED ---
Fall HPI - General Chief Complaint: Fall Stated Complaint: FALL, RIB PAIN Time Seen by Provider: 07/06/18 14:04 Source: patient Mode of arrival: EMS - History of Present Illness Initial Comments: 73-year-old male past medical history of atrial fibrillation on warfarin presenting today for chief complaint of fall. He states he was at the [facility] in [place] with his , he states he was not being attention for any swelling in his right foot hit a elevation of the walking surface. He states is causing the trip falling into a wall and then onto his right side. Patient denies falling forward onto the chest anteriorly, states he fell on left arm but dug his right elbow into the side of his ribs. Patient denies any abdominal pain/trauma denies hitting his head, LOC, neck injury/pain or back pain. He denies any pain of the extremities or pain of the right elbow. He states his pain is in the right lower ribs that increases with inspiration. Remaining ROS (-), fever, chills, shortness of breath, chest pain, nausea or vomiting, numbness or tingling, dysuria or hematuria, constipation or diarrhea, headaches or visual changes, or any other complaints. Upon arrival pt is ambulating without difficulty, appearing well- no signs of acute distress or respiratory difficulties. VS within normal limits. - Related Data Home Medications Medication Instructions Recorded Confirmed Albuterol Sulfate [Proair Hfa] 2 puff INHALATION RT-TID PRN 10/27/13 05/06/18 Dicyclomine [Bentyl] 20 mg PO AC-TID 10/27/13 05/06/18 Lovastatin [Mevacor] 40 mg PO HS 10/27/13 05/06/18 Fludrocortisone [Florinef] 0.1 mg PO BID 02/27/15 05/06/18 Citalopram Hydrobromide 20 mg PO BID 03/27/16 05/06/18 [Citalopram HBr] Finasteride [Proscar] 5 mg PO HS 03/27/16 05/06/18 Levothyroxine Sodium [Synthroid] 25 mcg PO DAILY 03/27/16 05/06/18 Tamsulosin [Flomax] 0.4 mg PO HS 04/03/18 05/06/18 Amiodarone [Cordarone] 200 mg PO BID 04/24/18 05/06/18 Metolazone [Zaroxolyn] 2.5 mg PO DAILY 04/24/18 05/06/18 Sacubitril/Valsartan [Entresto 24 1 tab PO HS 04/24/18 05/06/18 mg-26 mg Tablet] Spironolactone [Aldactone] 12.5 mg PO DAILY 04/24/18 05/06/18 Carvedilol [Coreg] 3.125 mg PO BID 05/06/18 05/06/18 clonazePAM 0.25 mg PO HS 05/06/18 05/06/18 Previous Rx's Medication Instructions Recorded Hydrocortisone [Cortef] 10 mg PO BID #0 04/08/18 Potassium Chloride [Klor-Con 20] 40 meq PO BID #120 tab 04/08/18 Midodrine HCl [ProAmatine] 10 mg PO TID #0 05/10/18 Warfarin [Coumadin] 5 mg PO HS #0 05/10/18 Allergies Allergy/AdvReac Type Severity Reaction Status Date / Time Iodinated Contrast- Oral and Allergy Rash/Hives Verified 05/06/18 15:09 IV Dye [Iodinated Contrast Media - IV Dye] nitroglycerin Allergy passed out Verified 05/06/18 15:09 adhesive AdvReac SKIN TURNS Verified 05/06/18 15:09 RED piperacillin sodium AdvReac Confusion Verified 05/06/18 15:09 [From Zosyn] tazobactam sodium AdvReac Confusion Verified 05/06/18 15:09 [From Zosyn] Review of Systems ROS Statement: Those systems with pertinent positive or pertinent negative responses have been documented in the HPI. ROS Other: All systems not noted in ROS Statement are negative. Past Medical History Past Medical History: Atrial Fibrillation, Heart Failure, CVA/TIA, GERD/Reflux, Hearing Disorder / Deafness, Hyperlipidemia, Hypertension, Memory Impairment, Myocardial Infarction ([place]), Osteoarthritis (OA), Prostate Disorder, Respiratory Disorder, Thyroid Disorder Additional Past Medical History / Comment(s): stroke behind rt eye-poor vision, macular degeneration harris eyes, migraine & cluster headaches,, WI's x 2 ( age unknown), cardiomyopathy, hole in stomach from excedrin -it caused aspiration after which he was in an induced coma and on a ventilator for 9 days, sarcoidosis of lungs, abdominal and stomach pain, frequent diarrhea, several head injuries as a child, arthiritis bilateral knees and hips, multiple lipomas , kidney stones, enlarged prostate. Last Myocardial Infarction Date:: unknown History of Any Multi-Drug Resistant Organisms: MRSA Date of last positivie culture/infection: 08/15/09 MDRO Source:: LUNGS Past Surgical History: AICD, Bowel Resection, Heart Catheterization With Stent, Hernia Repair, Orthopedic Surgery, Pacemaker, Prostate Surgery, Tonsillectomy Additional Past Surgical History / Comment(s): 12/28/14 Lap jose fundoplasty with mesh and lap lysis of adhesions. Other SX: AICD 2008 with replacement 2013 (medtronic), 1995 bowel resection d/t perforation with colostomy with eventual reversal of colostomy, 2009-surgery for "hole in stomach", 2007 blephoplasty bilaterally, 2001 deviated septum, 2003 TURP, 1975 vasectomy, 2012 R rotator cuff, surgery on "head" due to injuries, numerous lipoma removals -4 from L leg, 05/2014, 08/2013 EGD for removal of dentist spray nozzle, 1955 [facility] 1975 vasectomy, lithrotripsy, bilateral inquinal hernia repairs with R side done x3, cardiac caths with stents Past Anesthesia/Blood Transfusion Reactions: Postoperative Nausea & Vomiting ( PONV) Additional Past Anesthesia/Blood Transfusion Reaction / Comment(s): Pt has never recieved blood Date of Last Stent Placement:: 2007 Type of Cardiac Device: AICD Device Placement Date:: 08/2013 Medtronic Past Psychological History: Anxiety, Depression Smoking Status: Former smoker - Past Family History Brother(s) Family Medical History: Cancer Additional Family Medical History / Comment(s): Patient has 2 brothers that are both alive. One has history of prostate cancer. Father Family Medical History: Renal Disease, Respiratory Disorder Additional Family Medical History / Comment(s): Father at age 75 from renal failure. Mother Family Medical History: Coronary Artery Disease (CAD), Dementia Additional Family Medical History / Comment(s): Mother dies at age 94 from Alzheimer dementia. Sister(s) Family Medical History: Osteoarthritis (OA) Additional Family Medical History / Comment(s): Patient has one sister with osteoarthritis. General Exam - General Exam Comments Initial Comments: General: The patient is awake and alert, in no distress, and does not appear acutely ill. Eye: +3 mm pupils are equal, round and reactive to light, extra-ocular movements are intact. No nystagmus. There is normal conjunctiva bilaterally. No signs of icterus. Ears, nose, mouth and throat: There are moist mucous membranes and no oral lesions. Neck: The neck is supple, there is no tenderness or JVD. No tenderness to palpation midline or paravertebral the entire length of the spinal column. Cardiovascular: There is a regular rate and rhythm. No murmur, rub or gallop is appreciated. Respiratory: Lungs are clear to auscultation, respirations are non-labored, breath sounds are equal. No wheezes, stridor, rales, or rhonchi. Lung sounds present in all peters. Gastrointestinal: Soft, non-distended, non-tender abdomen without masses or organomegaly noted. There is no rebound or guarding present. No CVA tenderness. Bowel sounds are unremarkable. Musculoskeletal: No ecchymosis bruising of the right side. There is tenderness to palpation over the lower aspect of the right ribs. No tenderness to palpation of the anterior chest wall. Normal ROM, no tenderness of the upper and lower extremities including the right elbow. Strength 5/5 of the lower and upper extremities including right elbow. Sensation intact of the upper and lower extremities equal comparison bilaterally. Radial and DP pulses equal bilaterally 2+. Neurological: A&O x 3. CN II-XII intact, There are no obvious motor or sensory deficits. Coordination appears grossly intact. Speech is normal. Skin: Skin is warm and dry and no rashes or lesions are noted. Psychiatric: Cooperative, appropriate mood & affect, normal judgment. Limitations: no limitations Course Vital Signs 07/06/18 14:07 Temperature 97.9 F Pulse Rate 84 Respiratory 18 Rate Blood Pressure 113/60 Medical Decision Making - Medical Decision Making Well-appearing 73-year-old male presenting for fall with rib pain patient denies any other areas of injury, neck or head trauma or loss of consciousness. Pt appears well, there is fracture of ribs 8,9, 10. No significant displacement. No pneumothorax. Patient given spirometer. At this time I do feel patient is stable for discharge with outpatient follow-up in the next 1-2 days. Patient is to present immediately to the emergency department for any shortness of breath or chest pain. Patient denies any abdominal pain or other complaints. Patient appears well. Vital signs within normal limits. Patient refuses any pain medication. Patient aware of all return parameters, verbalized understanding. Patient discharged to appear well denying questions at this time. I did discuss the case with her provider Dr. Loja who reviewed imaging studies- agrees with impression and plan. Disposition Clinical Impression: Ribs, multiple fractures Disposition: HOME SELF-CARE Condition: Good Instructions (If sedation given, give patient instructions): Rib Fracture (ED) Additional Instructions: Please use medication as discussed. Please use incentive spirometer as discussed. Please follow-up with family doctor in the next 2 days.. Please return to emergency room if the symptoms increase or worsen or for any other concerns, as discussed. Is patient prescribed a controlled substance at d/c from ED?: No Referrals: Merritt Patel MD [Primary Care Provider] - 1-2 days Time of Disposition: 15:41
--- NOTE | 2018-07-06 14:32 | XR ---
EXAMINATION TYPE: XR chest 2V DATE OF EXAM: 07/06/2018 COMPARISON: 05/06/2018 HISTORY: 73-year-old male with pain TECHNIQUE: PA and lateral views FINDINGS: Left anterior chest wall ICD generator with right ventricular lead. Heart mildly enlarged. Mild hyper inflation. Patchy right basilar opacity obscuring the right heart margin. Some chronic pleural-parenc hymal scarring peripheral right upper lobe. Mild interstitial prominence. Trace pleural effusions. IMPRESSION: 1. Cardiomegaly with interstitial prominence. Correlate for possible mild CHF. 2. Trace pleural effusions with adjacent atelectasis and/or consolidation greatest at the right base.
--- NOTE | 2018-07-06 15:07 | XR ---
EXAMINATION TYPE: Right rib series DATE OF EXAM: 07/06/2018 COMPARISON: NONE HISTORY: 73-year-old male with pain TECHNIQUE: 4 views FINDINGS: Some probable pleural based calcifications peripherally right upper lobe or pleural-parenchymal scarr ing. Very subtle cortical irregularity along the lateral right ninth and 10th ribs within the lower h emithorax. Additional cortical irregularity anterolateral right eighth rib. IMPRESSION: Findings suggest subtle nondisplaced lateral, anterolateral right eighth, ninth, and 10th rib fractur es.
== END 2018-07-06 16:00 | disposition home or self-care (01) ==
LOC: EC 13:57
DX: S22.41XA Multiple fractures of ribs, right side, initial encounter for closed fracture (principal); I48.91 Unspecified atrial fibrillation; I11.0 Hypertensive heart disease with heart failure; I43 Cardiomyopathy in diseases classified elsewhere; I50.9 Heart failure, unspecified; E78.5 Hyperlipidemia, unspecified; I25.2 Old myocardial infarction; N40.0 Benign prostatic hyperplasia without lower urinary tract symptoms; E07.9 Disorder of thyroid, unspecified; F41.9 Anxiety disorder, unspecified; F32.9 Major depressive disorder, single episode, unspecified; Z86.73 Personal history of transient ischemic attack (TIA), and cerebral infarction without residual deficits; Z86.14 Personal history of Methicillin resistant Staphylococcus aureus infection; Z95.810 Presence of automatic (implantable) cardiac defibrillator; Z95.5 Presence of coronary angioplasty implant and graft; Z87.891 Personal history of nicotine dependence; Z79.52 Long term (current) use of systemic steroids; Z79.890 Hormone replacement therapy; Z79.899 Other long term (current) drug therapy; Z91.041 Radiographic dye allergy status; Z88.8 Allergy status to other drugs, medicaments and biological substances; Z91.048 Other nonmedicinal substance allergy status; Z88.1 Allergy status to other antibiotic agents; W01.0XXA Fall on same level from slipping, tripping and stumbling without subsequent striking against object, initial encounter; Y93.01 Activity, walking, marching and hiking; Y92.89 Other specified places as the place of occurrence of the external cause
CPT/HCPCS: 71046; 99283

== ENCOUNTER 2018-07-15 09:21 | Inpatient (IN) | payer MEDICARE ==
[2018-07-15] MEDS ORDERED: HYDROmorphone 1 MG/ML 1 ML SYRINGE IVP STA (09:40)
[2018-07-15] MEDS ORDERED: KETOROLAC 60 MG/2 ML VIAL IVP STA (09:40)
[2018-07-15] MEDS ORDERED: ONDANSETRON 4 MG/2 ML VIAL IVP STA (09:41)
--- NOTE | 2018-07-15 09:42 | ED ---
General Adult HPI - General Chief complaint: Chest Pain Stated complaint: JUAN M, Chest Pain Time Seen by Provider: 07/15/18 09:21 Source: patient, RN notes reviewed Mode of arrival: wheelchair Limitations: no limitations - History of Present Illness Initial comments: This a 73-year-old male who presents emergency Department stating that 2 weeks ago he fell and broke some ribs on the right side. Patient states he has had a little bit: The coughing but he feels as though the symptoms are getting better. Patient states the pain in the right-sided ribs is getting worse and he can't take a deep breath anytime he moved it hurts too much. Patient denies any anterior chest pain or pressure. Patient denies any fever chills. Patient denies any new injury. Patient denies any abdominal pain patient denies nausea vomiting. Patient denies any lightheadedness dizziness or near syncopal episode. - Related Data Home Medications Medication Instructions Recorded Confirmed Albuterol Sulfate [Proair Hfa] 2 puff INHALATION RT-TID PRN 10/27/13 07/15/18 Dicyclomine [Bentyl] 20 mg PO AC-TID 10/27/13 07/15/18 Lovastatin [Mevacor] 40 mg PO HS 10/27/13 07/15/18 Fludrocortisone [Florinef] 0.1 mg PO BID 02/27/15 07/15/18 Citalopram Hydrobromide 20 mg PO BID 03/27/16 07/15/18 [Citalopram HBr] Levothyroxine Sodium [Synthroid] 25 mcg PO DAILY 03/27/16 07/15/18 Metolazone [Zaroxolyn] 2.5 mg PO DAILY PRN 04/24/18 07/15/18 Sacubitril/Valsartan [Entresto 24 1 tab PO HS 04/24/18 07/15/18 mg-26 mg Tablet] Spironolactone [Aldactone] 12.5 mg PO DAILY 04/24/18 07/15/18 Carvedilol [Coreg] 3.125 mg PO BID 05/06/18 07/15/18 clonazePAM 0.25 mg PO HS 05/06/18 07/15/18 Albuterol Sulfate [Proair Hfa] 2 puff INHALATION RT-TID PRN 07/15/18 07/15/18 Allopurinol [Zyloprim] 100 mg PO DAILY 07/15/18 07/15/18 Amiodarone [Cordarone] 200 mg PO DAILY 07/15/18 07/15/18 Eylea 2mg/O.05ml 1 injection RIGHT EYE Q42D 07/15/18 07/15/18 Finasteride [Proscar] 5 mg PO Q48H 07/15/18 07/15/18 Furosemide [Lasix] 20 mg PO DAILY 07/15/18 07/15/18 Potassium Chloride ER [K-Dur 20] 20 meq PO DAILY 07/15/18 07/15/18 Tamsulosin HCl [Flomax] 0.4 mg PO Q48H 07/15/18 07/15/18 Warfarin [Coumadin] 1.5 mg PO WEFR 07/15/18 07/15/18 Warfarin [Coumadin] 3 mg PO SUMOTUTHSA 07/15/18 07/15/18 oxyCODONE-APAP 7.5-325MG [Percocet 0.5 - 1 tab PO TID 07/15/18 07/15/18 7.5-325 mg] Previous Rx's Medication Instructions Recorded Hydrocortisone [Cortef] 10 mg PO BID #0 04/08/18 Midodrine HCl [ProAmatine] 10 mg PO TID #0 05/10/18 Allergies Allergy/AdvReac Type Severity Reaction Status Date / Time Iodinated Contrast- Oral and Allergy Rash/Hives Verified 07/15/18 10:14 IV Dye [Iodinated Contrast Media - IV Dye] nitroglycerin Allergy passed out Verified 07/15/18 10:14 adhesive AdvReac SKIN TURNS Verified 07/15/18 10:14 RED piperacillin sodium AdvReac Confusion Verified 07/15/18 10:14 [From Zosyn] tazobactam sodium AdvReac Confusion Verified 07/15/18 10:14 [From Zosyn] Review of Systems ROS Statement: Those systems with pertinent positive or pertinent negative responses have been documented in the HPI. ROS Other: All systems not noted in ROS Statement are negative. Past Medical History Past Medical History: Atrial Fibrillation, Heart Failure, CVA/TIA, GERD/Reflux, Hearing Disorder / Deafness, Hyperlipidemia, Hypertension, Memory Impairment, Myocardial Infarction (OK), Osteoarthritis (OA), Prostate Disorder, Respiratory Disorder, Thyroid Disorder Additional Past Medical History / Comment(s): stroke behind rt eye-poor vision, macular degeneration harris eyes, migraine & cluster headaches,, OK's x 2 ( age unknown), cardiomyopathy, hole in stomach from excedrin -it caused aspiration after which he was in an induced coma and on a ventilator for 9 days, sarcoidosis of lungs, abdominal and stomach pain, frequent diarrhea, several head injuries as a child, arthiritis bilateral knees and hips, multiple lipomas , kidney stones, enlarged prostate. Last Myocardial Infarction Date:: unknown History of Any Multi-Drug Resistant Organisms: MRSA Date of last positivie culture/infection: 08/15/09 MDRO Source:: LUNGS Past Surgical History: AICD, Bowel Resection, Heart Catheterization With Stent, Hernia Repair, Orthopedic Surgery, Pacemaker, Prostate Surgery, Tonsillectomy Additional Past Surgical History / Comment(s): 12/28/14 Lap jose fundoplasty with mesh and lap lysis of adhesions. Other SX: AICD 2008 with replacement 2013 (medtronic), 1995 bowel resection d/t perforation with colostomy with eventual reversal of colostomy, 2009-surgery for "hole in stomach", 2007 blephoplasty bilaterally, 2001 deviated septum, 2003 TURP, 1975 vasectomy, 2012 R rotator cuff, surgery on "head" due to injuries, numerous lipoma removals -4 from L leg, 05/2014, 08/2013 EGD for removal of dentist spray nozzle, [address] [facility] , 1975 vasectomy, lithrotripsy, bilateral inquinal hernia repairs with R side done x3, cardiac caths with stents Past Anesthesia/Blood Transfusion Reactions: Postoperative Nausea & Vomiting ( PONV) Additional Past Anesthesia/Blood Transfusion Reaction / Comment(s): Pt has never recieved blood Date of Last Stent Placement:: 2007 Type of Cardiac Device: AICD Device Placement Date:: 08/2013 Medtronic Past Psychological History: Anxiety, Depression Smoking Status: Former smoker - Past Family History Brother(s) Family Medical History: Cancer Additional Family Medical History / Comment(s): Patient has 2 brothers that are both alive. One has history of prostate cancer. Father Family Medical History: Renal Disease, Respiratory Disorder Additional Family Medical History / Comment(s): Father at age 75 from renal failure. Mother Family Medical History: Coronary Artery Disease (CAD), Dementia Additional Family Medical History / Comment(s): Mother dies at age 94 from Alzheimer dementia. Sister(s) Family Medical History: Osteoarthritis (OA) Additional Family Medical History / Comment(s): Patient has one sister with osteoarthritis. General Exam - General Exam Comments Initial Comments: GENERAL: Patient is well-developed and well-nourished. Patient is nontoxic and well- hydrated and is in mild distress. ENT: Neck is soft and supple. No significant lymphadenopathy is noted. Oropharynx is clear. Moist mucous membranes. Neck has full range of motion without eliciting any pain. EYES: The sclera were anicteric and conjunctiva were pink and moist. Extraocular movements were intact and pupils were equal round and reactive to light. Eyelids were unremarkable. PULMONARY: Unlabored respirations. Good breath sounds bilaterally. No audible rales rhonchi or wheezing was noted. CARDIOVASCULAR: There is a regular rate and rhythm without any murmurs gallops or rubs. Patient 's got rib tenderness on the lateral right rib cage. ABDOMEN: Soft and nontender with normal bowel sounds. No palpable organomegaly was noted. There is no palpable pulsatile mass. SKIN: Skin is clear with no lesions or rashes and otherwise unremarkable. NEUROLOGIC: Patient is alert and oriented x3. Cranial nerves II through XII are grossly intact. Motor and sensory are also intact. Normal speech, volume and content. Symmetrical smile. MUSCULOSKELETAL: Normal extremities with adequate strength and full range of motion. No lower extremity swelling or edema. No calf tenderness. LYMPHATICS: No significant lymphadenopathy is noted PSYCHIATRIC: Normal psychiatric evaluation. Limitations: no limitations Course Vital Signs 07/15/18 07/15/18 07/15/18 09:28 09:57 11:48 Temperature 98.3 F 98.0 F Pulse Rate 62 87 Respiratory 20 20 16 Rate Blood Pressure 111/75 116/80 O2 Sat by Pulse 89 L 99 Oximetry Medical Decision Making - Medical Decision Making EKG shows undetermined rhythm at 100 bpm QRS is 60 QT interval is 420 QTC is 451. Patient's EKG shows right bundle cecily block. Chest x-ray shows bilateral infiltrates and pleural effusions consistent with acute pulmonary edema Patient's been given Lasix and nitroglycerin. I spoke with Dr. Patel he agreed to admit the patient admitted the patient wrote admitting orders to continue Lasix and nitroglycerin on the floor. Patient was also given pain medicines in the emergency department he was feeling considerably better. - Lab Data Result diagrams: 07/15/18 09:51 07/15/18 09:51 Lab Results 07/15/18 07/15/18 07/15/18 Range/Units 09:50 09:51 09:51 WBC 9.0 (3.8-10.6) k/uL RBC 3.79 L (4.30-5.90) m/uL Hgb 12.3 L (13.0-17.5) gm/dL Hct 37.7 L (39.0-53.0) % MCV 99.6 (80.0-100.0) fL MCH 32.4 (25.0-35.0) pg MCHC 32.5 (31.0-37.0) g/dL RDW 14.4 (11.5-15.5) % Plt Count 262 (150-450) k/uL Neutrophils % 77 % Lymphocytes % 10 % Monocytes % 10 % Eosinophils % 1 % Basophils % 1 % Neutrophils # 6.9 (1.3-7.7) k/uL Lymphocytes # 0.9 L (1.0-4.8) k/uL Monocytes # 0.9 (0-1.0) k/uL Eosinophils # 0.1 (0-0.7) k/uL Basophils # 0.1 (0-0.2) k/uL Hypochromasia Slight PT (9.0-12.0) sec INR (<1.2) APTT (22.0-30.0) sec Sodium 140 (137-145) mmol/L Potassium 3.1 L (3.5-5.1) mmol/L Chloride 97 L (98-107) mmol/L Carbon Dioxide 37 H (22-30) mmol/L Anion Gap 6 mmol/L BUN 31 H (9-20) mg/dL Creatinine 1.89 H (0.66-1.25) mg/dL Est GFR (CKD-EPI)AfAm 39 (>60 ml/min/1.73 sqM) Est GFR (CKD-EPI)NonAf 34 (>60 ml/min/1.73 sqM) Glucose 98 (74-99) mg/dL Calcium 8.6 (8.4-10.2) mg/dL Magnesium 1.6 (1.6-2.3) mg/dL Total Bilirubin 1.4 H (0.2-1.3) mg/dL AST 33 (17-59) U/L ALT 45 (21-72) U/L Alkaline Phosphatase 58 (38-126) U/L Troponin I (0.000-0.034) ng/mL NT-Pro-B Natriuret Pep 07177 pg/mL Total Protein 6.4 (6.3-8.2) g/dL Albumin 3.4 L (3.5-5.0) g/dL 07/15/18 07/15/18 Range/Units 09:51 09:51 WBC (3.8-10.6) k/uL RBC (4.30-5.90) m/uL Hgb (13.0-17.5) gm/dL Hct (39.0-53.0) % MCV (80.0-100.0) fL MCH (25.0-35.0) pg MCHC (31.0-37.0) g/dL RDW (11.5-15.5) % Plt Count (150-450) k/uL Neutrophils % % Lymphocytes % % Monocytes % % Eosinophils % % Basophils % % Neutrophils # (1.3-7.7) k/uL Lymphocytes # (1.0-4.8) k/uL Monocytes # (0-1.0) k/uL Eosinophils # (0-0.7) k/uL Basophils # (0-0.2) k/uL Hypochromasia PT 74.4 H (9.0-12.0) sec INR 7.6 H* (<1.2) APTT 37.7 H (22.0-30.0) sec Sodium (137-145) mmol/L Potassium (3.5-5.1) mmol/L Chloride (98-107) mmol/L Carbon Dioxide (22-30) mmol/L Anion Gap mmol/L BUN (9-20) mg/dL Creatinine (0.66-1.25) mg/dL Est GFR (CKD-EPI)AfAm (>60 ml/min/1.73 sqM) Est GFR (CKD-EPI)NonAf (>60 ml/min/1.73 sqM) Glucose (74-99) mg/dL Calcium (8.4-10.2) mg/dL Magnesium (1.6-2.3) mg/dL Total Bilirubin (0.2-1.3) mg/dL AST (17-59) U/L ALT (21-72) U/L Alkaline Phosphatase (38-126) U/L Troponin I 0.017 (0.000-0.034) ng/mL NT-Pro-B Natriuret Pep pg/mL Total Protein (6.3-8.2) g/dL Albumin (3.5-5.0) g/dL Critical Care Time Critical Care Time: Yes Total Critical Care Time: 35 Disposition Clinical Impression: Rib fractures, Coagulopathy, Acute pulmonary edema Disposition: ADMITTED IP TO THIS HOSP Referrals: Merritt Patel MD [Primary Care Provider] - 1-2 days Time of Disposition: 12:02
[2018-07-15 10:19] LABS: Basophils # (A) 0.1 k/uL (0-0.2); Basophils % (A) 1 %; Eosinophils # (A) 0.1 k/uL (0-0.7); Eosinophils % (A) 1 %; HCT 37.7 % (39.0-53.0); HGB 12.3 gm/dL (13.0-17.5); Hypochromasia Slight; Lymphocytes # (A) 0.9 k/uL (1.0-4.8); Lymphocytes % (A) 10 %; MCH 32.4 pg (25.0-35.0); MCHC 32.5 g/dL (31.0-37.0); MCV 99.6 fL (80.0-100.0); Monocytes # (A) 0.9 k/uL (0-1.0); Monocytes % (A) 10 %; Neutrophils # (A) 6.9 k/uL (1.3-7.7); Neutrophils % (A) 77 %; Platelet Count 262 k/uL (150-450); RBC 3.79 m/uL (4.30-5.90); RDW 14.4 % (11.5-15.5)
--- NOTE | 2018-07-15 10:21 | XR ---
EXAMINATION TYPE: XR chest 2V DATE OF EXAM: 07/15/2018 COMPARISON: 07/06/2018 TECHNIQUE: PA and lateral views submitted. HISTORY: Shortness of breath FINDINGS: There are bilateral consolidation and pleural effusion with diffuse interstitial pattern. Cardiomegal y cardiac device seen with biapical pleural thickening. Multiple right-sided rib fractures are seen. Recent. No sizable pneumothorax. Hypertrophic change of the spine. IMPRESSION: 1. Bilateral infiltrate and pleural effusion correlate for central venous congestion. Otherwise consi jesús interstitial pneumonitis or chronic interstitial lung disease. Findings are stable. 2. Multiple right-sided recent rib fractures with no definite pneumothorax.
[2018-07-15 10:31] LABS: Albumin 3.4 g/dL (3.5-5.0); Calcium 8.6 mg/dL (8.4-10.2); Magnesium 1.6 mg/dL (1.6-2.3); Partial Thromboplastin Time 37.7 sec (22.0-30.0); Potassium 3.1 mmol/L (3.5-5.1); Total Bilirubin 1.4 mg/dL (0.2-1.3); Total Protein 6.4 g/dL (6.3-8.2)
[2018-07-15 10:39] LABS: Prothrombin Time 74.4 sec (9.0-12.0)
[2018-07-15 10:49] LABS: INR 7.6 (<1.2)
[2018-07-15] MEDS ORDERED: FUROSEMIDE 10 MG/ML 4 ML VIAL IV STA (11:46)
[2018-07-15] MEDS ORDERED: NITROGLYCERIN OINT 1 INCH/GM PACKET TOPICAL STA (11:47)
[2018-07-15] MEDS ORDERED: HYDROmorphone 0.5 MG/0.5 ML SYRINGE IVP PRN (12:20)
[2018-07-15] MEDS ORDERED: FUROSEMIDE 10 MG/ML 4 ML VIAL IV SCH (12:30)
[2018-07-15] MEDS: NITROGLYCERIN OINT 1 INCH/GM PACKET TOPICAL SCH ×2 (19:46→23:21)
[2018-07-15] MEDS: FUROSEMIDE 10 MG/ML 4 ML VIAL IV SCH ×2 (19:47→23:23)
[2018-07-15] MEDS ORDERED: METOLAZONE 2.5 MG TAB PO PRN (20:56)
[2018-07-15] MEDS ORDERED: ALBUTEROL NEBULIZED 2.5 MG/3 ML INHALATION PRN (20:56)
[2018-07-15] MEDS ORDERED: WARFARIN 1.5 MG TAB PO SCH (21:00)
[2018-07-15] MEDS: ATORVASTATIN 10 MG TAB PO SCH (22:47)
[2018-07-15] MEDS: SACUBITRIL/VALSARTAN 24 MG-26 MG TABLET PO SCH (22:47)
[2018-07-15] MEDS: CITALOPRAM HYDROBROMIDE 20 MG TAB PO SCH (22:47)
[2018-07-15] MEDS: HYDROCORTISONE 10 MG TAB PO SCH (22:47)
[2018-07-15] MEDS: FLUDROCORTISONE 0.1 MG TAB PO SCH (22:47)
[2018-07-15] MEDS: KETOROLAC 30 MG/ML 1 ML VIAL IVP SCH (22:48)
[2018-07-15] MEDS: clonazePAM 0.5 MG TAB PO SCH (22:49)
[2018-07-15] MEDS: MELATONIN 5 MG TABLET PO SCH (23:21)
[2018-07-15] MEDS: oxyCODONE-APAP 7.5-325MG 1 EACH TAB PO SCH (23:22)
[2018-07-16] MEDS: KETOROLAC 30 MG/ML 1 ML VIAL IVP SCH ×5 (00:22→23:42)
[2018-07-16] MEDS: MIDODRINE 5 MG TAB PO SCH ×3 (05:59→16:52)
[2018-07-16] MEDS: LEVOTHYROXINE 25 MCG TAB PO SCH (05:59)
[2018-07-16] MEDS: DICYCLOMINE 20 MG TAB PO SCH ×3 (05:59→16:52)
[2018-07-16] MEDS: CARVEDILOL 3.125 MG TAB PO SCH ×2 (07:16→16:53)
[2018-07-16 07:47] LABS: Basophils # (A) 0.1 k/uL (0-0.2); Basophils % (A) 1 %; Eosinophils # (A) 0.1 k/uL (0-0.7); Eosinophils % (A) 1 %; HGB 10.9 gm/dL (13.0-17.5); Hypochromasia Slight; Lymphocytes # (A) 0.5 k/uL (1.0-4.8); Lymphocytes % (A) 7 %; MCH 31.4 pg (25.0-35.0); MCHC 31.2 g/dL (31.0-37.0); MCV 100.9 fL (80.0-100.0); Macrocytosis Slight; Mean Platelet Volume 8.4; Monocytes # (A) 0.5 k/uL (0-1.0); Monocytes % (A) 7 %; Neutrophils # (A) 5.8 k/uL (1.3-7.7); Neutrophils % (A) 83 %; Platelet Count 239 k/uL (150-450); RBC 3.46 m/uL (4.30-5.90); RDW 14.2 % (11.5-15.5)
[2018-07-16 07:52] LABS: INR 4.3 (<1.2); Prothrombin Time 41.7 sec (9.0-12.0)
[2018-07-16] MEDS: FUROSEMIDE 10 MG/ML 4 ML VIAL IV SCH ×3 (08:02→23:40)
[2018-07-16] MEDS: ALLOPURINOL 100 MG TAB PO SCH (08:02)
[2018-07-16] MEDS: POTASSIUM CHLORIDE ER 20 MEQ TAB.ER PO SCH (08:02)
[2018-07-16] MEDS: HYDROCORTISONE 10 MG TAB PO SCH ×2 (08:02→20:52)
[2018-07-16] MEDS: CITALOPRAM HYDROBROMIDE 20 MG TAB PO SCH ×2 (08:03→20:52)
[2018-07-16] MEDS: FINASTERIDE 5 MG TAB PO SCH (08:03)
[2018-07-16] MEDS: oxyCODONE-APAP 7.5-325MG 1 EACH TAB PO SCH ×3 (08:03→21:00)
[2018-07-16] MEDS: AMIODARONE 200 MG TAB PO SCH (08:03)
[2018-07-16] MEDS: TAMSULOSIN 0.4 MG CAP.ER.24H PO SCH (08:07)
[2018-07-16] MEDS: SPIRONOLACTONE 25 MG TAB PO SCH (08:08)
[2018-07-16] MEDS: NITROGLYCERIN OINT 1 INCH/GM PACKET TOPICAL SCH ×4 (08:09→23:42)
[2018-07-16 08:13] LABS: Potassium 3.5 mmol/L (3.5-5.1)
[2018-07-16] MEDS ORDERED: FUROSEMIDE 20 MG TAB PO SCH (09:00)
[2018-07-16] MEDS: FLUDROCORTISONE 0.1 MG TAB PO SCH ×2 (09:17→20:52)
--- NOTE | 2018-07-16 10:49 | P.CRDCN ---
History of Present Illness Consult date: 07/16/18 Requesting physician: Merritt Patel Consult reason: congestive heart failure Chief complaint: Shortness of breath History of present illness: This is a 73-year-old gentleman with past medical history significant for chronic persistent atrial fibrillation on long-term anticoagulation, nonischemic cardiomyopathy, chronic systolic congestive heart failure, hyperlipidemia, hypertension, valvular heart disease, status post single chamber ICD, chronic kidney disease, history of ventricular fibrillation. He follows regularly with Dr. Cárdenas in the office. He presents to the hospital on this admission with symptoms of shortness of breath which the patient states has been going on for only one day duration. Patient does state that on the he did experience a fall, he came to the emergency room to be evaluated at that time, and was found to have subtle nondisplaced lateral anterior lateral right eighth and ninth and 10th rib fractures. Chest x-ray performed this admission showed bilateral infiltrate and pleural effusion, correlate for central venous congestion. Otherwise consider interstitial pneumonitis or chronic interstitial lung disease. Multiple right sided recent rib fractures are noted, no evidence of any pneumothorax. EKG shows atrial fibrillation with a controlled ventricular response. White blood cell count is normal, hemoglobin 12.3 on admission, 10.9 this morning. Platelet count 239. Pro time on admission 74.4 with an INR 7.6, 41.7 and 4.3 this morning. Sodium 139, potassium 3.5, BUN 34 and creatinine 2.3. Magnesium level I.6. Troponin 0.017. BNP level 16,000. Patient had an echocardiogram with Doppler study performed in April which revealed an ejection fraction of 20-25%, severe mitral regurgitation, moderate tricuspid regurg. Blood pressure 98/60 with a heart rate in the 90s.93% on 4l. Past Medical History Past Medical History: Atrial Fibrillation, Heart Failure, CVA/TIA, Eye Disorder , GERD/Reflux, Hearing Disorder / Deafness, Hyperlipidemia, Hypertension, Memory Impairment, Myocardial Infarction ([place]), Osteoarthritis (OA), Prostate Disorder, Respiratory Disorder, Thyroid Disorder Additional Past Medical History / Comment(s): Stroke behind rt eye-poor vision, macular degeneration harris eyes, EKWOK bilaterally, migraine & cluster headaches,, [place]'s x 2 ( age unknown), cardiomyopathy, hole in stomach from excedrin -it caused aspiration after which he was in an induced coma and on a ventilator for 9 days, sarcoidosis of lungs, abdominal and stomach pain, frequent diarrhea, several head injuries as a child, arthiritis bilateral knees and hips, multiple lipomas, kidney stones, enlarged prostate. Last Myocardial Infarction Date:: unknown History of Any Multi-Drug Resistant Organisms: MRSA Date of last positivie culture/infection: 08/15/09 MDRO Source:: LUNGS Past Surgical History: AICD, Bowel Resection, Heart Catheterization With Stent, Hernia Repair, Orthopedic Surgery, Pacemaker, Prostate Surgery, Tonsillectomy Additional Past Surgical History / Comment(s): 12/28/14 Lap jose fundoplasty with mesh and lap lysis of adhesions. Other SX: AICD 2008 with replacement 2013 (medtronic), 1995 bowel resection d/t perforation with colostomy with eventual reversal of colostomy, 2009-surgery for "hole in stomach", 2007 blephoplasty bilaterally, 2001 deviated septum, 2003 TURP, 1975 vasectomy, 2012 R rotator cuff, numerous lipoma removals-4 from L leg, 05/2014, 08/2013 EGD for removal of dentist spray nozzle, 1955 Aguilar surgery at [facility] d/t head injuries , 1975 vasectomy, lithrotripsy, bilateral inquinal hernia repairs with R side done x3, cardiac caths with stents Past Anesthesia/Blood Transfusion Reactions: Postoperative Nausea & Vomiting ( PONV) Additional Past Anesthesia/Blood Transfusion Reaction / Comment(s): Pt has never recieved blood Date of Last Stent Placement:: 2007 Type of Cardiac Device: AICD Device Placement Date:: 08/2013 Medtronic Smoking Status: Former smoker - Past Family History Brother(s) Family Medical History: Cancer Additional Family Medical History / Comment(s): Patient has 2 brothers that are both alive. One has history of prostate cancer. Father Family Medical History: Renal Disease, Respiratory Disorder Additional Family Medical History / Comment(s): Father at age 75 from renal failure. Mother Family Medical History: Coronary Artery Disease (CAD), Dementia Additional Family Medical History / Comment(s): Mother dies at age 94 from Alzheimer dementia. Sister(s) Family Medical History: Osteoarthritis (OA) Additional Family Medical History / Comment(s): Patient has one sister with osteoarthritis. Medications and Allergies Home Medications Medication Instructions Recorded Confirmed Type Albuterol Sulfate [Proair Hfa] 2 puff INHALATION RT-TID PRN 10/27/13 07/15/18 History Dicyclomine [Bentyl] 20 mg PO AC-TID 10/27/13 07/15/18 History Lovastatin [Mevacor] 40 mg PO HS 10/27/13 07/15/18 History Fludrocortisone [Florinef] 0.1 mg PO BID 02/27/15 07/15/18 History Citalopram Hydrobromide 20 mg PO BID 03/27/16 07/15/18 History [Citalopram HBr] Levothyroxine Sodium [Synthroid] 25 mcg PO DAILY 03/27/16 07/15/18 History Hydrocortisone [Cortef] 10 mg PO BID #0 04/08/18 07/15/18 Rx Metolazone [Zaroxolyn] 2.5 mg PO DAILY PRN 04/24/18 07/15/18 History Sacubitril/Valsartan [Entresto 24 1 tab PO HS 04/24/18 07/15/18 History mg-26 mg Tablet] Spironolactone [Aldactone] 12.5 mg PO DAILY 04/24/18 07/15/18 History Carvedilol [Coreg] 3.125 mg PO BID 05/06/18 07/15/18 History clonazePAM 0.25 mg PO HS 05/06/18 07/15/18 History Midodrine HCl [ProAmatine] 10 mg PO TID #0 05/10/18 07/15/18 Rx Albuterol Sulfate [Proair Hfa] 2 puff INHALATION RT-TID PRN 07/15/18 07/15/18 History Allopurinol [Zyloprim] 100 mg PO DAILY 07/15/18 07/15/18 History Amiodarone [Cordarone] 200 mg PO DAILY 07/15/18 07/15/18 History Eylea 2mg/O.05ml 1 injection RIGHT EYE Q42D 07/15/18 07/15/18 History Finasteride [Proscar] 5 mg PO Q48H 07/15/18 07/15/18 History Furosemide [Lasix] 20 mg PO DAILY 07/15/18 07/15/18 History Potassium Chloride ER [K-Dur 20] 20 meq PO DAILY 07/15/18 07/15/18 History Tamsulosin HCl [Flomax] 0.4 mg PO Q48H 07/15/18 07/15/18 History Warfarin [Coumadin] 1.5 mg PO WEFR 07/15/18 07/15/18 History Warfarin [Coumadin] 3 mg PO SUMOTUTHSA 07/15/18 07/15/18 History oxyCODONE-APAP 7.5-325MG [Percocet 0.5 - 1 tab PO TID 07/15/18 07/15/18 History 7.5-325 mg] Allergies Allergy/AdvReac Type Severity Reaction Status Date / Time Iodinated Contrast- Oral and Allergy Rash/Hives Verified 07/15/18 10:14 IV Dye [Iodinated Contrast Media - IV Dye] nitroglycerin Allergy passed out Verified 07/15/18 10:14 adhesive AdvReac SKIN TURNS Verified 07/15/18 10:14 RED piperacillin sodium AdvReac Confusion Verified 07/15/18 10:14 [From Zosyn] tazobactam sodium AdvReac Confusion Verified 07/15/18 10:14 [From Zosyn] Physical Exam Vitals: Vital Signs Temp Pulse Pulse Resp BP BP Pulse Ox 07/16/18 04:00 98 F 93 17 98/62 93 L 07/16/18 00:00 98.2 F 92 17 114/78 96 07/15/18 22:00 85 20 112/86 95 07/15/18 20:23 56 L 20 100/74 97 07/15/18 15:07 98.0 F 78 16 95/66 95 07/15/18 11:48 98.0 F 87 16 116/80 99 Intake and Output 07/15/18 07/16/18 07/16/18 22:59 06:59 14:59 Intake Total 50 300 Output Total 400 Balance 50 -100 Intake: Amount of Fluid Infused ( 50 ml) Oral 300 Output: Urine 400 Other: Voiding Method Urinal Weight 67.7 kg PHYSICAL EXAMINATION: GENERAL: 73-year-old gentleman in no acute distress at the time of my examination HEENT: Head is atraumatic, normocephalic. Pupils equal, round. Sclera anicteric. Conjunctiva are clear. Mucous membranes of the mouth are moist. Neck is supple. There is no elevated jugular venous pressure. No carotid bruit is heard. HEART EXAMINATION: S1 and S2 irregularly irregular a systolic ejection murmur is heard CHEST EXAMINATION: Lungs are clear with mild diminished air entry to the bases bilaterally ABDOMEN: Soft, nontender. Bowel sounds are heard. No organomegaly noted. EXTREMITIES: 2+ peripheral pulses with no evidence of peripheral edema and no calf tenderness noted. NEUROLOGIC patient is awake, alert and oriented 3 . . Results 07/16/18 06:06 07/16/18 06:06 Cardiac Enzymes 07/15/18 07/15/18 Range/Units 09:51 09:51 AST 33 (17-59) U/L Troponin I 0.017 (0.000-0.034) ng/mL Coagulation 07/15/18 07/16/18 Range/Units 09:51 06:06 PT 74.4 H 41.7 H (9.0-12.0) sec APTT 37.7 H (22.0-30.0) sec CBC 07/16/18 Range/Units 06:06 WBC 7.0 (3.8-10.6) k/uL RBC 3.46 L (4.30-5.90) m/uL Hgb 10.9 L (13.0-17.5) gm/dL Hct 35.0 L (39.0-53.0) % Plt Count 239 (150-450) k/uL Comprehensive Metabolic Panel 07/15/18 07/16/18 Range/Units 09:51 06:06 Sodium 140 139 (137-145) mmol/L Potassium 3.1 L 3.5 (3.5-5.1) mmol/L Chloride 97 L 94 L (98-107) mmol/L Carbon Dioxide 37 H 38 H (22-30) mmol/L BUN 31 H 34 H (9-20) mg/dL Creatinine 1.89 H 2.30 H (0.66-1.25) mg/dL Glucose 98 87 (74-99) mg/dL Calcium 8.6 8.0 L (8.4-10.2) mg/dL AST 33 (17-59) U/L ALT 45 (21-72) U/L Alkaline Phosphatase 58 (38-126) U/L Total Protein 6.4 (6.3-8.2) g/dL Albumin 3.4 L (3.5-5.0) g/dL Current Medications Generic Name Dose Route Start Last Admin Trade Name Freq PRN Reason Stop Dose Admin Albuterol Sulfate 2.5 mg 07/15/18 20:56 Ventolin Nebulized INHALATION RT-TID PRN Dyspnea Allopurinol 100 mg 07/16/18 09:00 07/16/18 08:02 Zyloprim PO 100 mg DAILY RADHA Administration Amiodarone HCl 200 mg 07/16/18 09:00 07/16/18 08:03 Cordarone PO 200 mg DAILY RADHA Administration Atorvastatin Calcium 10 mg 07/15/18 21:00 07/15/18 22:47 Lipitor PO 10 mg HS RADHA Administration Carvedilol 3.125 mg 07/16/18 07:30 07/16/18 07:16 Coreg PO 3.125 mg BID-W/MEALS RADHA Administration Citalopram Hydrobromide 20 mg 07/15/18 21:00 07/16/18 08:03 Celexa PO 20 mg BID RADHA Administration Clonazepam 0.25 mg 07/15/18 21:00 07/15/18 22:49 Klonopin PO 0.25 mg HS RADHA Administration Dicyclomine HCl 20 mg 07/16/18 07:30 07/16/18 05:59 Bentyl PO 20 mg AC-TID RADHA Administration Finasteride 5 mg 07/16/18 09:00 07/16/18 08:03 Proscar PO 5 mg Q48H RADHA Administration Fludrocortisone Acetate 0.1 mg 07/15/18 21:00 07/16/18 09:17 Florinef PO 0.1 mg BID RADHA Administration Furosemide 40 mg 07/15/18 16:00 07/16/18 08:02 Lasix IV 40 mg Q8H RADHA Administration Hydrocortisone 10 mg 07/15/18 21:00 07/16/18 08:02 Cortef PO 10 mg BID RADHA Administration Hydromorphone HCl 0.5 mg 07/15/18 12:20 Dilaudid IVP Q4HR PRN Pain Ketorolac Tromethamine 15 mg 07/15/18 18:00 07/16/18 06:59 Toradol IVP 07/19/18 12:19 Not Given Q6HR [facility] Levothyroxine Sodium 25 mcg 07/16/18 06:30 07/16/18 05:59 Synthroid PO 25 mcg DAILY@0630 RADHA Administration Melatonin 5 mg 07/15/18 23:00 07/15/18 23:21 Melatonin PO 5 mg HS RADHA Administration Metolazone 2.5 mg 07/15/18 20:56 Zaroxolyn PO DAILY PRN HIGH BLOOD PRESSURE Midodrine 10 mg 07/16/18 07:30 07/16/18 05:59 Proamatine PO 10 mg AC-TID RADHA Administration Nitroglycerin 1 inch 07/15/18 18:00 07/16/18 08:09 Nitro-Bid Oint TOPICAL Not Given QID [facility] Oxycodone/Acetaminophen 0.5 each 07/15/18 22:00 07/16/18 08:03 Percocet 7.5-325 PO 0.5 each TID RADHA Administration Potassium Chloride 20 meq 07/16/18 09:00 07/16/18 08:02 K-Dur 20 PO 20 meq DAILY RADHA Administration Sacubitril/Valsartan 1 each 07/15/18 21:00 07/15/18 22:47 Entresto 24 Mg-26 Mg Tablet PO 1 each HS RADHA Administration Spironolactone 12.5 mg 07/16/18 09:00 07/16/18 08:08 Aldactone PO 12.5 mg DAILY RADHA Administration Tamsulosin HCl 0.4 mg 07/16/18 09:00 07/16/18 08:07 Flomax PO 0.4 mg Q48H RADHA Administration Warfarin Sodium 1.5 mg 07/15/18 21:00 Coumadin PO WEFR [facility] Warfarin Sodium 3 mg 07/16/18 20:56 Coumadin PO SUMOTUTHSA [facility] Intake and Output 07/15/18 07/16/18 07/16/18 22:59 06:59 14:59 Intake Total 50 300 Output Total 400 Balance 50 -100 Intake: Amount of Fluid Infused ( 50 ml) Oral 300 Output: Urine 400 Other: Voiding Method Urinal Weight 67.7 kg 07/16/18 06:06 07/16/18 06:06 EKG Interpretations (text) EKG shows atrial fibrillation with moderately rapid ventricular response Assessment and Plan Plan: Assessment and plan #1 systolic congestive heart failure acute on chronic #2 known history of chronic persistent atrial fibrillation on Coumadin for anticoagulation, INR on admission was 7.6 #3 nonischemic cardiomyopathy with prior AICD, single chamber #4 hyperlipidemia #5 hypertension #6 chronic kidney disease #7 history of ventricular fibrillation #8 recent fall with evidence of rib fractures #9 recent hospitalization in April of this year with orthostatic hypotension, associated dizziness and near syncope. Plan We will continue with current dose of IV Lasix. We will also check orthostatic heart rate and blood pressure every shift. We will not repeat an echo patient is in April of this year. Further recommendations to follow. DNP note has been reviewed, I agree with a documented findings and plan of care. Patient was seen and examined.
[2018-07-16 14:07] VITALS: BMI 20.8
--- NOTE | 2018-07-16 15:00 | P.HPIM ---
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 fib who fell recently and fractured few ribs in the right side developed to have worsening pain and discomfort in the right side especially deep inspiration. Patient presented to [facility] today because of worsening symptom was seen and evaluated his troponin was borderline, patient BNP was very high and patient was diagnosed clinically with congestive heart failure with worsening exacerbation most likely systolic. Patient will be admitted to the hospital continue to treat repeat fracture with no pneumothorax and continue to treat heart failure. Patient was started on the Entresto we'll titrate the dose higher. Review of Systems CONSTITUTIONAL: Well-developed no acute respiratory distress. EYES: No icterus sclerae, no conjunctivitis. EARS, NOSE, MOUTH, THROAT, and FACE: No sore throat, lymphadenopathy, carotid bruits or deformity. RESPIRATORY: No SOB cough or wheezes. CARDIOVASCULAR: No CP, Palpitation, PND, Orthopnea, or angina. GASTROINTESTINAL: No Abd pain, Nausea or vomiting, no Diarrhea or constipation, No GI Bleed, no distention or masses. GENITOURINARY: Negative for Hematuria or UTI, no kidney stones. INTEGUMENT/BREAST: Negative for any muscular injury with mild osteoarthritis.. HEMATOLOGIC/LYMPHATIC: Negative for bleed or purpura. MUSCULOSKELTAL: Negative for Myalgia or arthralgia. NEURLOGICAL: No LOC, Sz or syncope, blurred vision dizziness or abnormality.. BEHAVIORAL/PSYCH: Negative. ENDOCRINE: Negative. Past Medical History Past Medical History: Atrial Fibrillation, Heart Failure, CVA/TIA, GERD/Reflux, Hearing Disorder / Deafness, Hyperlipidemia, Hypertension, Memory Impairment, Myocardial Infarction ([place]), Osteoarthritis ([place]), Prostate Disorder, Respiratory Disorder, Thyroid Disorder Additional Past Medical History / Comment(s): stroke behind rt eye-poor vision, macular degeneration harris eyes, migraine & cluster headaches,, [place]'s x 2 ( age unknown), cardiomyopathy, hole in stomach from excedrin -it caused aspiration after which he was in an induced coma and on a ventilator for 9 days, sarcoidosis of lungs, abdominal and stomach pain, frequent diarrhea, several head injuries as a child, arthiritis bilateral knees and hips, multiple lipomas , kidney stones, enlarged prostate. Last Myocardial Infarction Date:: unknown History of Any Multi-Drug Resistant Organisms: MRSA Date of last positivie culture/infection: 08/15/09 MDRO Source:: LUNGS Past Surgical History: AICD, Bowel Resection, Heart Catheterization With Stent, Hernia Repair, Orthopedic Surgery, Pacemaker, Prostate Surgery, Tonsillectomy Additional Past Surgical History / Comment(s): 12/28/14 Lap jose fundoplasty with mesh and lap lysis of adhesions. Other SX: AICD 2008 with replacement 2013 (medtronic), 1995 bowel resection d/t perforation with colostomy with eventual reversal of colostomy, 2009-surgery for "hole in stomach", 2007 blephoplasty bilaterally, 2001 deviated septum, 2003 TURP, 1975 vasectomy, 2012 R rotator cuff, surgery on "head" due to injuries, numerous lipoma removals -4 from L leg, 05/2014, 08/2013 EGD for removal of dentist spray nozzle, 1955 Aguilar surgery at [facility], 1975 vasectomy, lithrotripsy, bilateral inquinal hernia repairs with R side done x3, cardiac caths with stents Past Anesthesia/Blood Transfusion Reactions: Postoperative Nausea & Vomiting ( PONV) Additional Past Anesthesia/Blood Transfusion Reaction / Comment(s): Pt has never recieved blood Date of Last Stent Placement:: 2007 Type of Cardiac Device: AICD Device Placement Date:: 08/2013 [employer]tronic Past Psychological History: Anxiety, Depression Smoking Status: Former smoker - Past Family History Brother(s) Family Medical History: Cancer Additional Family Medical History / Comment(s): Patient has 2 brothers that are both alive. One has history of prostate cancer. Father Family Medical History: Renal Disease, Respiratory Disorder Additional Family Medical History / Comment(s): Father at age 75 from renal failure. Mother Family Medical History: Coronary Artery Disease (CAD), Dementia Additional Family Medical History / Comment(s): Mother dies at age 94 from Alzheimer dementia. Sister(s) Family Medical History: Osteoarthritis (OA) Additional Family Medical History / Comment(s): Patient has one sister with osteoarthritis. Medications and Allergies Home Medications Medication Instructions Recorded Confirmed Type Albuterol Sulfate [Proair Hfa] 2 puff INHALATION RT-TID PRN 10/27/13 07/15/18 History Dicyclomine [Bentyl] 20 mg PO AC-TID 10/27/13 07/15/18 History Lovastatin [Mevacor] 40 mg PO HS 10/27/13 07/15/18 History Fludrocortisone [Florinef] 0.1 mg PO BID 02/27/15 07/15/18 History Citalopram Hydrobromide 20 mg PO BID 03/27/16 07/15/18 History [Citalopram HBr] Levothyroxine Sodium [Synthroid] 25 mcg PO DAILY 03/27/16 07/15/18 History Hydrocortisone [Cortef] 10 mg PO BID #0 04/08/18 07/15/18 Rx Metolazone [Zaroxolyn] 2.5 mg PO DAILY PRN 04/24/18 07/15/18 History Sacubitril/Valsartan [Entresto 24 1 tab PO HS 04/24/18 07/15/18 History mg-26 mg Tablet] Spironolactone [Aldactone] 12.5 mg PO DAILY 04/24/18 07/15/18 History Carvedilol [Coreg] 3.125 mg PO BID 05/06/18 07/15/18 History clonazePAM 0.25 mg PO HS 05/06/18 07/15/18 History Midodrine HCl [ProAmatine] 10 mg PO TID #0 05/10/18 07/15/18 Rx Albuterol Sulfate [Proair Hfa] 2 puff INHALATION RT-TID PRN 07/15/18 07/15/18 History Allopurinol [Zyloprim] 100 mg PO DAILY 07/15/18 07/15/18 History Amiodarone [Cordarone] 200 mg PO DAILY 07/15/18 07/15/18 History Eylea 2mg/O.05ml 1 injection RIGHT EYE Q42D 07/15/18 07/15/18 History Finasteride [Proscar] 5 mg PO Q48H 07/15/18 07/15/18 History Furosemide [Lasix] 20 mg PO DAILY 07/15/18 07/15/18 History Potassium Chloride ER [K-Dur 20] 20 meq PO DAILY 07/15/18 07/15/18 History Tamsulosin HCl [Flomax] 0.4 mg PO Q48H 07/15/18 07/15/18 History Warfarin [Coumadin] 1.5 mg PO WEFR 07/15/18 07/15/18 History Warfarin [Coumadin] 3 mg PO SUMOTUTHSA 07/15/18 07/15/18 History oxyCODONE-APAP 7.5-325MG [Percocet 0.5 - 1 tab PO TID 07/15/18 07/15/18 History 7.5-325 mg] Allergies Allergy/AdvReac Type Severity Reaction Status Date / Time Iodinated Contrast- Oral and Allergy Rash/Hives Verified 07/15/18 10:14 IV Dye [Iodinated Contrast Media - IV Dye] nitroglycerin Allergy passed out Verified 07/15/18 10:14 adhesive AdvReac SKIN TURNS Verified 07/15/18 10:14 RED piperacillin sodium AdvReac Confusion Verified 07/15/18 10:14 [From Zosyn] tazobactam sodium AdvReac Confusion Verified 07/15/18 10:14 [From Zosyn] Physical Exam Vitals: Vital Signs Temp Pulse Resp BP Pulse Ox 07/15/18 11:48 98.0 F 87 16 116/80 99 07/15/18 09:57 20 07/15/18 09:28 98.3 F 62 20 111/75 89 L Intake and Output 07/14/18 07/15/18 07/15/18 22:59 06:59 14:59 Other: Weight 67.132 kg General Appearance: Alert, cooperative, no distress, appears stated age. Neck HEENT: Supple, no lymphadenopathy, no thyroid enlargement, no carotid bruits. Lungs: Clear to auscultation without crackles or wheezes no rhonchi, no deformity. Chest Wall: Chest wall normal expansion with deep inspiration no tenderness and no deformity was found on exam, no costochondral pain or discomfort. Heart: Regular rate and rhythm, S1, S2 normal, no murmur, rub or gallop. Back: Symmetric, no curvature, ROM normal, no CVA tenderness. Abdomen: Soft, non-tender, bowel sounds active all four quadrants, no masses, no organomegaly. Extremities: Extremities normal, atraumatic, no cyanosis or edema. Pulses: 2+ and symmetric. Skin: Skin color, texture, tugor normal, no rashes or lesions. Neurologic: Alert oriented x3 cranial nerves II through XII intact, no motor deficit, no abnormal balance or gait. Results CBC & Chem 7: 07/15/18 09:51 07/15/18 09:51 Labs: Abnormal Lab Results - Last 24 Hours (Table) 07/15/18 07/15/18 07/15/18 Range/Units 09:51 09:51 09:51 RBC 3.79 L (4.30-5.90) m/uL Hgb 12.3 L (13.0-17.5) gm/dL Hct 37.7 L (39.0-53.0) % Lymphocytes # 0.9 L (1.0-4.8) k/uL PT 74.4 H (9.0-12.0) sec INR 7.6 H* (<1.2) APTT 37.7 H (22.0-30.0) sec Potassium 3.1 L (3.5-5.1) mmol/L Chloride 97 L (98-107) mmol/L Carbon Dioxide 37 H (22-30) mmol/L BUN 31 H (9-20) mg/dL Creatinine 1.89 H (0.66-1.25) mg/dL Total Bilirubin 1.4 H (0.2-1.3) mg/dL Albumin 3.4 L (3.5-5.0) g/dL Assessment and Plan Plan: 1 acute worsening congestive heart failure mostly systolic with acute component in a chronic condition. Patient will be hospitalized continue IV diuretics continued use Zaroxolyn 18 continue patient on Coreg Aldactone and Entresto. Watch daily weight intake and output. 2 severe right-sided chest pain with rib fracture: Continue conservative management with lidocaine topical along with pain management. 3 worsening dyspnea and shortness of breath: Combination of COPD, CHF and drip fracture O2 will be done continue updraft treatment and incentive spirometry. 4 A. fib with RVR: Pulse rates under control currently remain on amiodarone Coreg and still on anticoagulation with warfarin PT/INR been watch on weekly basis. 5 COPD: Continue O2 continue DuoNeb and Pulmicort. 6 chronic depression and worsening psychosis: Has been doing well on the clonazepam. 7 adrenal insufficiency: Patient has been on Florinef and if needed Cortef can be added as well. 8 BPH: Has been on Proscar and Flomax. 9 hypothyroidism: Continue patient on levothyroxine 25 g daily. 10 hyperlipidemia: Remain on Mevacor 40 mg daily. 11 chronic pain syndrome: Has been on hydrocodone 7.5 mg half tablet daily times a day as needed. 12 irritable bowel syndrome: Has been on Naye on as needed basis. 13 gout: Has been on allopurinol. 14 GI prophylaxis: Continue patient on Pepcid 20 mg daily. 15 DVT prophylaxis: Remain on anticoagulation. CODE STATUS: Full code. Admit patient to inpatient status for more than 2 nights.
--- NOTE | 2018-07-16 15:37 | P.PN ---
Subjective Progress Note Date: 07/16/18 73-year-old male with chronic history of cardiomyopathy, COPD, chronic history of depression and chronic history of A. fib who fell recently and fractured few ribs in the right side developed to have worsening pain and discomfort in the right side especially deep inspiration. Patient presented to [facility] today because of worsening symptom was seen and evaluated his troponin was borderline, patient BNP was very high and patient was diagnosed clinically with congestive heart failure with worsening exacerbation most likely systolic. Patient will be admitted to the hospital continue to treat repeat fracture with no pneumothorax and continue to treat heart failure. Patient was started on the Entresto we'll titrate the dose higher. 07/16: patient is sitting up in bed and family member at bedside. He denies any complaints today. INR is down to 4.3. BUN 34 and creatinine 2.30. Patient has met with cardiology and plan is to start eliquis once his INR is down. Patient was concerned because he has tried eliquis in the past but it was too much money. hydro generation manager has checked cause and they will provide one month free and from thereon $40 per month. Pulse ox is 97% on 5 L, he has been afebrile, blood pressure 91/52, orthostatic vital signs at been negative. Review of Systems CONSTITUTIONAL: No fever, no chills. EYES: No icterus sclerae, no conjunctivitis. EARS, NOSE, MOUTH, THROAT, and FACE: No sore throat, lymphadenopathy, carotid bruits or deformity. RESPIRATORY: No SOB cough or wheezes. CARDIOVASCULAR: No CP, Palpitation, PND, Orthopnea, or angina. GASTROINTESTINAL: No Abd pain, Nausea or vomiting, no Diarrhea or constipation, No GI Bleed, no distention or masses. GENITOURINARY: Negative for Hematuria or UTI, no kidney stones. INTEGUMENT/BREAST: Negative for any muscular injury with mild osteoarthritis.. HEMATOLOGIC/LYMPHATIC: Negative for bleed or purpura. MUSCULOSKELTAL: Negative for Myalgia or arthralgia. NEURLOGICAL: No LOC, Sz or syncope, blurred vision dizziness or abnormality.. BEHAVIORAL/PSYCH: Negative. ENDOCRINE: Negative. Objective - Vital Signs Vital signs: Vital Signs Temp 98.2 F 07/16/18 12:03 Pulse 99 07/16/18 12:03 Resp 18 07/16/18 12:03 BP 124/84 02/28/19 12:03 Pulse Ox 97 07/16/18 12:03 Intake & Output 07/15/18 07/16/18 07/16/18 18:59 06:59 18:59 Intake Total 350 300 Output Total 400 Balance -50 300 Weight 67.132 kg 67.7 kg Intake: Amount of Fluid Infused ( 50 ml) Oral 300 300 Output: Urine 400 Other: Voiding Method Urinal Urinal - Exam General Appearance: Alert, cooperative, no distress, appears stated age. Patient resting in bed and appears to be comfortable. Family member at bedside Neck HEENT: Supple, no lymphadenopathy, no thyroid enlargement, no carotid bruits. Lungs: Clear to auscultation without crackles or wheezes no rhonchi, no deformity. Chest Wall: Chest wall normal expansion with deep inspiration no tenderness and no deformity was found on exam, no costochondral pain or discomfort. Heart: Regular rate and rhythm, S1, S2 normal, no murmur, rub or gallop. Back: Symmetric, no curvature, ROM normal, no CVA tenderness. Abdomen: Soft, non-tender, bowel sounds active all four quadrants, no masses, no organomegaly. Extremities: Extremities normal, atraumatic, no cyanosis or edema. Pulses: 2+ and symmetric. Skin: Skin color, texture, tugor normal, no rashes or lesions. Neurologic: Alert oriented x3 cranial nerves II through XII intact, no motor deficit, no abnormal balance or gait. - Labs CBC & Chem 7: 07/16/18 06:06 07/16/18 06:06 Labs: Abnormal Lab Results - Last 24 Hours (Table) 07/16/18 07/16/18 07/16/18 Range/Units 06:06 06:06 06:06 RBC 3.46 L (4.30-5.90) m/uL Hgb 10.9 L (13.0-17.5) gm/dL Hct 35.0 L (39.0-53.0) % MCV 100.9 H (80.0-100.0) fL Lymphocytes # 0.5 L (1.0-4.8) k/uL PT 41.7 H (9.0-12.0) sec INR 4.3 H (<1.2) Chloride 94 L (98-107) mmol/L Carbon Dioxide 38 H (22-30) mmol/L BUN 34 H (9-20) mg/dL Creatinine 2.30 H (0.66-1.25) mg/dL Calcium 8.0 L (8.4-10.2) mg/dL Assessment and Plan Plan: 1 acute on chronic systolic heart failure and nonischemic cardiomyopathy. Continue Lasix 40 mg IV every 8 hours, Coreg, Aldactone and Entresto. Watch daily weight intake and output. 2 severe right-sided chest pain with rib fracture: Continue conservative management with lidocaine topical along with pain management. 3 worsening dyspnea and shortness of breath: Combination of COPD, CHF, continue updraft treatment and incentive spirometry. 4 chronic atrial fibrillation: Pulse rates under control currently remain on amiodarone Coreg. Patient will start eliquis once INR is down. 5 COPD: Continue O2 continue DuoNeb and Pulmicort. 6 recurrent depression and worsening psychosis: Has been doing well on the clonazepam. 7 adrenal insufficiency: Patient has been on Florinef and if needed Cortef can be added as well. 8 BPH: Has been on Proscar and Flomax. 9 hypothyroidism: Continue patient on levothyroxine 25 g daily. 10 hyperlipidemia: Remain on Mevacor 40 mg daily. 11 chronic pain syndrome: Has been on hydrocodone 7.5 mg half tablet daily times a day as needed. 12 irritable bowel syndrome: Has been on Naye on as needed basis. 13 gout: Has been on allopurinol. 14 GI prophylaxis: Continue patient on Pepcid 20 mg daily. 15 DVT prophylaxis: Remain on anticoagulation. 16 hyper coagulopathy secondary to Coumadin use CODE STATUS: Full code. Discharge plan: Home with [facility] on Friday Impression and plan of care have been directed as dictated by the signing physician. Luma Mancera nurse practitioner acting as scribe for signing physician.
[2018-07-16] MEDS: SACUBITRIL/VALSARTAN 24 MG-26 MG TABLET PO SCH (20:52)
[2018-07-16] MEDS: MELATONIN 5 MG TABLET PO SCH (20:52)
[2018-07-16] MEDS: ATORVASTATIN 10 MG TAB PO SCH (20:52)
[2018-07-16] MEDS: clonazePAM 0.5 MG TAB PO SCH (20:53)
[2018-07-16] MEDS ORDERED: WARFARIN 3 MG TAB PO SCH (20:56)
[2018-07-17] MEDS: MIDODRINE 5 MG TAB PO SCH ×3 (06:56→17:21)
[2018-07-17] MEDS: LEVOTHYROXINE 25 MCG TAB PO SCH (06:56)
[2018-07-17] MEDS: CARVEDILOL 3.125 MG TAB PO SCH ×2 (06:56→17:21)
[2018-07-17] MEDS: DICYCLOMINE 20 MG TAB PO SCH ×3 (06:56→17:21)
[2018-07-17] MEDS: KETOROLAC 30 MG/ML 1 ML VIAL IVP SCH ×2 (06:57→11:58)
[2018-07-17 07:35] LABS: Basophils % (A) 1 %; Eosinophils # (A) 0.1 k/uL (0-0.7); Eosinophils % (A) 2 %; HCT 34.4 % (39.0-53.0); HGB 11.4 gm/dL (13.0-17.5); Lymphocytes # (A) 0.5 k/uL (1.0-4.8); Lymphocytes % (A) 8 %; MCH 33.2 pg (25.0-35.0); MCHC 33.1 g/dL (31.0-37.0); MCV 100.3 fL (80.0-100.0); Macrocytosis Slight; Mean Platelet Volume 7.5; Monocytes # (A) 0.6 k/uL (0-1.0); Monocytes % (A) 9 %; Neutrophils # (A) 4.7 k/uL (1.3-7.7); Neutrophils % (A) 78 %; Platelet Count 248 k/uL (150-450); RBC 3.43 m/uL (4.30-5.90); RDW 14.6 % (11.5-15.5)
[2018-07-17 07:42] LABS: INR 3.6 (<1.2); Prothrombin Time 34.2 sec (9.0-12.0)
[2018-07-17 07:48] LABS: Calcium 7.8 mg/dL (8.4-10.2); Potassium 2.8 mmol/L (3.5-5.1)
[2018-07-17] MEDS: FUROSEMIDE 10 MG/ML 4 ML VIAL IV SCH (08:03)
[2018-07-17] MEDS: HYDROCORTISONE 10 MG TAB PO SCH ×2 (08:04→20:51)
[2018-07-17] MEDS: FLUDROCORTISONE 0.1 MG TAB PO SCH ×2 (08:04→20:51)
[2018-07-17] MEDS: CITALOPRAM HYDROBROMIDE 20 MG TAB PO SCH ×2 (08:04→20:52)
[2018-07-17] MEDS: POTASSIUM CHLORIDE ER 20 MEQ TAB.ER PO SCH ×3 (08:04→14:03)
[2018-07-17] MEDS: ALLOPURINOL 100 MG TAB PO SCH (08:04)
[2018-07-17] MEDS: NITROGLYCERIN OINT 1 INCH/GM PACKET TOPICAL SCH ×4 (08:05→20:38)
[2018-07-17] MEDS: oxyCODONE-APAP 7.5-325MG 1 EACH TAB PO SCH ×3 (08:05→22:47)
[2018-07-17] MEDS: AMIODARONE 200 MG TAB PO SCH (08:05)
[2018-07-17] MEDS: SPIRONOLACTONE 25 MG TAB PO SCH (08:05)
--- NOTE | 2018-07-17 14:09 | P.NPCON ---
History of Present Illness - Reason for Consult acute renal failure, chronic renal failure - History of Present Illness Reason for consultation: Acute kidney injury on chronic kidney disease History of present illness: Patient is a 73-year-old male seen in renal consultation for acute kidney injury on chronic kidney disease. Patient has chronic kidney disease stage III with baseline creatinine the range of 1.2-1.3 in March 2018. However in April 2018 his creatinine was in the range of 2-2.5. This admission his creatinine was 1.89 and is up to 2.47 today. Prior urinalysis has been benign. Etiology is nephrosclerosis and cardiorenal syndrome. Patient presented to the hospital after sustaining a fall and he was having pain in his ribs with dyspnea. He was noted to be in fluid overload and has been receiving IV diuresis since admission. This morning his Lasix was changed to 40 mg orally twice daily. He admits to good urine output. No hematuria or dysuria. No history of diabetes. He is also receiving Toradol every 6 hours for pain. He has systolic CHF with ejection fraction of 20-25% with moderate tricuspid regurgitation and severe mitral regurgitation. Potassium was low and is being replaced. His dyspnea has improved since admission. Edema is also improved. Vital signs are stable. General: The patient appeared well nourished and normally developed. HEENT: Head exam is unremarkable. Neck is without jugular venous distension. LUNGS: Breath sounds decreased. HEART: Rate and Rhythm are regular. First and second heart sounds normal. No murmurs, rubs or gallops. ABDOMEN: Abdominal exam reveals normal bowel sounds. Non-tender and non- distended. No evidence of peritonitis. EXTREMITITES: No clubbing, cyanosis, or edema. Past Medical History Past Medical History: Atrial Fibrillation, Heart Failure, CVA/TIA, GERD/Reflux, Hearing Disorder / Deafness, Hyperlipidemia, Hypertension, Memory Impairment, Myocardial Infarction (MN), Osteoarthritis (OA), Prostate Disorder, Respiratory Disorder, Thyroid Disorder Additional Past Medical History / Comment(s): stroke behind rt eye-poor vision, macular degeneration harris eyes, migraine & cluster headaches,, MN's x 2 ( age unknown), cardiomyopathy, hole in stomach from excedrin -it caused aspiration after which he was in an induced coma and on a ventilator for 9 days, sarcoidosis of lungs, abdominal and stomach pain, frequent diarrhea, several head injuries as a child, arthiritis bilateral knees and hips, multiple lipomas , kidney stones, enlarged prostate. Last Myocardial Infarction Date:: unknown History of Any Multi-Drug Resistant Organisms: MRSA Date of last positivie culture/infection: 08/15/09 MDRO Source:: LUNGS Past Surgical History: AICD, Bowel Resection, Heart Catheterization With Stent, Hernia Repair, Orthopedic Surgery, Pacemaker, Prostate Surgery, Tonsillectomy Additional Past Surgical History / Comment(s): 12/28/14 Lap jose fundoplasty with mesh and lap lysis of adhesions. Other SX: AICD 2008 with replacement 2013 (medtronic), 1995 bowel resection d/t perforation with colostomy with eventual reversal of colostomy, 2009-surgery for "hole in stomach", 2007 blephoplasty bilaterally, 2001 deviated septum, 2003 TURP, 1975 vasectomy, 2012 R rotator cuff, surgery on "head" due to injuries, numerous lipoma removals -4 from L leg, 05/2014, 08/2013 EGD for removal of dentist spray nozzle, 1955 [facility] surgery at [facility], 1975 vasectomy, lithrotripsy, bilateral inquinal hernia repairs with R side done x3, cardiac caths with stents Past Anesthesia/Blood Transfusion Reactions: Postoperative Nausea & Vomiting ( PONV) Additional Past Anesthesia/Blood Transfusion Reaction / Comment(s): Pt has never recieved blood Date of Last Stent Placement:: 2007 Type of Cardiac Device: AICD Device Placement Date:: 08/2013 Medtronic Past Psychological History: Anxiety, Depression Smoking Status: Former smoker - Past Family History Brother(s) Family Medical History: Cancer Additional Family Medical History / Comment(s): Patient has 2 brothers that are both alive. One has history of prostate cancer. Father Family Medical History: Renal Disease, Respiratory Disorder Additional Family Medical History / Comment(s): Father at age 75 from renal failure. Mother Family Medical History: Coronary Artery Disease (CAD), Dementia Additional Family Medical History / Comment(s): Mother dies at age 94 from Alzheimer dementia. Sister(s) Family Medical History: Osteoarthritis (OA) Additional Family Medical History / Comment(s): Patient has one sister with osteoarthritis. Medications and Allergies Home Medications Medication Instructions Recorded Confirmed Type Albuterol Sulfate [Proair Hfa] 2 puff INHALATION RT-TID PRN 10/27/13 07/15/18 History Dicyclomine [Bentyl] 20 mg PO AC-TID 10/27/13 07/15/18 History Lovastatin [Mevacor] 40 mg PO HS 10/27/13 07/15/18 History Fludrocortisone [Florinef] 0.1 mg PO BID 02/27/15 07/15/18 History Citalopram Hydrobromide 20 mg PO BID 03/27/16 07/15/18 History [Citalopram HBr] Levothyroxine Sodium [Synthroid] 25 mcg PO DAILY 03/27/16 07/15/18 History Hydrocortisone [Cortef] 10 mg PO BID #0 04/08/18 07/15/18 Rx Metolazone [Zaroxolyn] 2.5 mg PO DAILY PRN 04/24/18 07/15/18 History Sacubitril/Valsartan [Entresto 24 1 tab PO HS 04/24/18 07/15/18 History mg-26 mg Tablet] Spironolactone [Aldactone] 12.5 mg PO DAILY 04/24/18 07/15/18 History Carvedilol [Coreg] 3.125 mg PO BID 05/06/18 07/15/18 History clonazePAM 0.25 mg PO HS 05/06/18 07/15/18 History Midodrine HCl [ProAmatine] 10 mg PO TID #0 05/10/18 07/15/18 Rx Albuterol Sulfate [Proair Hfa] 2 puff INHALATION RT-TID PRN 07/15/18 07/15/18 History Allopurinol [Zyloprim] 100 mg PO DAILY 07/15/18 07/15/18 History Amiodarone [Cordarone] 200 mg PO DAILY 07/15/18 07/15/18 History Eylea 2mg/O.05ml 1 injection RIGHT EYE Q42D 07/15/18 07/15/18 History Finasteride [Proscar] 5 mg PO Q48H 07/15/18 07/15/18 History Furosemide [Lasix] 20 mg PO DAILY 07/15/18 07/15/18 History Potassium Chloride ER [K-Dur 20] 20 meq PO DAILY 07/15/18 07/15/18 History Tamsulosin HCl [Flomax] 0.4 mg PO Q48H 07/15/18 07/15/18 History Warfarin [Coumadin] 1.5 mg PO WEFR 07/15/18 07/15/18 History Warfarin [Coumadin] 3 mg PO SUMOTUTHSA 07/15/18 07/15/18 History oxyCODONE-APAP 7.5-325MG [Percocet 0.5 - 1 tab PO TID 07/15/18 07/15/18 History 7.5-325 mg] Allergies Allergy/AdvReac Type Severity Reaction Status Date / Time Iodinated Contrast- Oral and Allergy Rash/Hives Verified 07/15/18 10:14 IV Dye [Iodinated Contrast Media - IV Dye] nitroglycerin Allergy passed out Verified 07/15/18 10:14 adhesive AdvReac SKIN TURNS Verified 07/15/18 10:14 RED piperacillin sodium AdvReac Confusion Verified 07/15/18 10:14 [From Zosyn] tazobactam sodium AdvReac Confusion Verified 07/15/18 10:14 [From Zosyn] Physical Exam Vitals: Vital Signs Temp Pulse Resp BP BP BP Pulse Ox 07/17/18 08:12 97.7 F 86 18 92/43 90 L 07/17/18 04:00 97.9 F 83 17 94/64 94 L 07/17/18 00:00 97.8 F 74 17 100/62 92 L 07/16/18 20:00 97.3 F L 85 17 93/67 94/65 99 07/16/18 16:00 97.8 F 77 16 92/59 93 L Intake and Output 07/16/18 07/17/18 07/17/18 22:59 06:59 14:59 Intake Total 400 400 240 Output Total 1000 350 Balance 400 -600 -110 Intake: Oral 400 400 240 Output: Urine 1000 350 Other: Voiding Method Urinal Urinal Urinal # Voids 1 Weight 61 kg Results - Lab Results Most recent lab results Calcium 7.8 mg/dL (8.4-10.2) L 07/17/18 06:13 Magnesium 1.6 mg/dL (1.6-2.3) 07/15/18 09:51 07/17/18 06:13 07/17/18 06:13 Assessment and Plan Plan: Assessment: 1. Acute kidney injury mostly prerenal secondary to diuresis. Creatinine up to 2.47 today. Prior UA revealed no proteinuria. 2. Chronic kidney disease stage III secondary to nephrosclerosis and cardiorenal syndrome. Creatinine was 1.2-1.3 in March 2018 and 2-2.5 in April 2018. 3. Hypokalemia secondary to diuresis. 4. Volume overload. Improving. 5. Systolic CHF with ejection fraction of 20-25% with severe mitral regurgitation and moderate tricuspid regurgitation. Plan: Maintain Lasix 40 mg orally twice daily. Discontinue nonsteroidals. Check urinalysis. Repeat electrolytes in the morning. Check magnesium level as well. Potassium is being replaced. Thank you for the consultation. I will continue to follow the patient with you during his hospital stay.
--- NOTE | 2018-07-17 14:33 | P.PN ---
Subjective Progress Note Date: 07/17/18 This is a 73-year-old gentleman with past medical history significant for chronic persistent atrial fibrillation on long-term anticoagulation, nonischemic cardiomyopathy, chronic systolic congestive heart failure, hyperlipidemia, hypertension, valvular heart disease, status post single chamber ICD, chronic kidney disease, history of ventricular fibrillation. He follows regularly with Dr. Cárdenas in the office. He presents to the hospital on this admission with symptoms of shortness of breath which the patient states has been going on for only one day duration. Patient does state that on the he did experience a fall, he came to the emergency room to be evaluated at that time, and was found to have subtle nondisplaced lateral anterior lateral right eighth and ninth and 10th rib fractures. Chest x-ray performed this admission showed bilateral infiltrate and pleural effusion, correlate for central venous congestion. Otherwise consider interstitial pneumonitis or chronic interstitial lung disease. Multiple right sided recent rib fractures are noted, no evidence of any pneumothorax. EKG shows atrial fibrillation with a controlled ventricular response. White blood cell count is normal, hemoglobin 12.3 on admission, 10.9 this morning. Platelet count 239. Pro time on admission 74.4 with an INR 7.6, 41.7 and 4.3 this morning. Sodium 139, potassium 3.5, BUN 34 and creatinine 2.3. Magnesium level I.6. Troponin 0.017. BNP level 16,000. Patient had an echocardiogram with Doppler study performed in April which revealed an ejection fraction of 20-25%, severe mitral regurgitation, moderate tricuspid regurg. Blood pressure 98/60 with a heart rate in the 90s.93% on 4l. 07/17/2018 Patient was seen and examined this morning, feeling significantly better overall. Blood pressure 94/60 with a heart rate in the 80s, 94% on 4 L of oxygen. White blood cell count 6.0, hemoglobin 11.4, platelet count 248. INR 3.6. Sodium 139, potassium 2.8, BUN 41 and creatinine 2.4. Nephrology was consulted to see the patient, they have continued his Lasix at 40 mg by mouth twice a day. Objective - Vital Signs Vital signs: Vital Signs Temp 97.7 F 07/17/18 08:12 Pulse 86 07/17/18 08:12 Resp 18 07/17/18 08:12 BP 92/43 07/17/18 08:12 Pulse Ox 90 L 07/17/18 08:12 Intake & Output 07/16/18 07/17/18 07/17/18 18:59 06:59 18:59 Intake Total 300 800 240 Output Total 1000 350 Balance 300 -200 -110 Weight 67.7 kg 61 kg Intake: Oral 300 800 240 Output: Urine 1000 350 Other: Voiding Method Urinal Urinal Urinal # Voids 1 - Exam PHYSICAL EXAMINATION: GENERAL: 73-year-old gentleman in no acute distress at the time of my examination HEENT: Head is atraumatic, normocephalic. Pupils equal, round. Sclera anicteric. Conjunctiva are clear. Mucous membranes of the mouth are moist. Neck is supple. There is no elevated jugular venous pressure. No carotid bruit is heard. HEART EXAMINATION: S1 and S2 irregularly irregular a systolic ejection murmur is heard CHEST EXAMINATION: Lungs are clear with mild diminished air entry to the bases bilaterally ABDOMEN: Soft, nontender. Bowel sounds are heard. No organomegaly noted. EXTREMITIES: 2+ peripheral pulses with no evidence of peripheral edema and no calf tenderness noted. NEUROLOGIC patient is awake, alert and oriented 3 . - Labs CBC & Chem 7: 07/17/18 06:13 07/17/18 06:13 Labs: Abnormal Lab Results - Last 24 Hours (Table) 07/17/18 07/17/18 07/17/18 Range/Units 06:13 06:13 06:13 RBC 3.43 L (4.30-5.90) m/uL Hgb 11.4 L (13.0-17.5) gm/dL Hct 34.4 L (39.0-53.0) % MCV 100.3 H (80.0-100.0) fL Lymphocytes # 0.5 L (1.0-4.8) k/uL PT 34.2 H (9.0-12.0) sec INR 3.6 H (<1.2) Potassium 2.8 L (3.5-5.1) mmol/L Chloride 95 L (98-107) mmol/L Carbon Dioxide 38 H (22-30) mmol/L BUN 41 H (9-20) mg/dL Creatinine 2.47 H (0.66-1.25) mg/dL Glucose 111 H (74-99) mg/dL Calcium 7.8 L (8.4-10.2) mg/dL Assessment and Plan Plan: Assessment and plan #1 systolic congestive heart failure acute on chronic #2 known history of chronic persistent atrial fibrillation on Coumadin for anticoagulation, INR on admission was 7.6, 3.6 this morning. #3 nonischemic cardiomyopathy with prior AICD, single chamber #4 hyperlipidemia #5 hypertension #6 chronic kidney disease #7 history of ventricular fibrillation #8 recent fall with evidence of rib fractures #9 recent hospitalization in April of this year with orthostatic hypotension, associated dizziness and near syncope. Plan Patient's weight is down significantly today, urine output through the night was excellent. Changed over to oral diuretics today. Potassium is being replaced, it was 2.8 today. No significant orthostatic documented. Patient will be observed for another 24 hours. DNP note has been reviewed, I agree with a documented findings and plan of care. Patient was seen and examined.
--- NOTE | 2018-07-17 14:34 | P.PN ---
Subjective Progress Note Date: 07/17/18 73-year-old male with chronic history of cardiomyopathy, COPD, chronic history of depression and chronic history of A. fib who fell recently and fractured few ribs in the right side developed to have worsening pain and discomfort in the right side especially deep inspiration. Patient presented to [facility] today because of worsening symptom was seen and evaluated his troponin was borderline, patient BNP was very high and patient was diagnosed clinically with congestive heart failure with worsening exacerbation most likely systolic. Patient will be admitted to the hospital continue to treat repeat fracture with no pneumothorax and continue to treat heart failure. Patient was started on the Entresto we'll titrate the dose higher. 07/16: patient is sitting up in bed and family member at bedside. He denies any complaints today. INR is down to 4.3. BUN 34 and creatinine 2.30. Patient has met with cardiology and plan is to start eliquis once his INR is down. Patient was concerned because he has tried eliquis in the past but it was too much money. food service manager has checked cause and they will provide one month free and from thereon $40 per month. Pulse ox is 97% on 5 L, he has been afebrile, blood pressure 91/52, orthostatic vital signs at been negative. 07/17: Pulse ox is 90-94% on 4 L nasal cannula. He has been afebrile, heart rate in the 80s, blood pressure 92/43. INR is 3.6. Potassium 2.8 and will be replaced, chloride 95, CO2 38, BUN 41, creatinine 2.47. Consult with Dr. Shante ann and he has recommended continuing Lasix, discontinue nonsteroidals , check urinalysis, repeat electrolytes and check magnesium and potassium replaced. We will also discontinue Aldactone and Lasix changed to 40 mg oral twice daily. Anticipate probable discharge over the weekend. Review of Systems CONSTITUTIONAL: No fever, no chills. No lightheadedness or dizziness. EYES: No icterus sclerae, no conjunctivitis. EARS, NOSE, MOUTH, THROAT, and FACE: No sore throat, lymphadenopathy, carotid bruits or deformity. RESPIRATORY: No SOB cough or wheezes. CARDIOVASCULAR: No CP, Palpitation, PND, Orthopnea, or angina. GASTROINTESTINAL: No Abd pain, Nausea or vomiting, no Diarrhea or constipation, No GI Bleed, no distention or masses. GENITOURINARY: Negative for Hematuria or UTI, no kidney stones. INTEGUMENT/BREAST: Negative for any muscular injury with mild osteoarthritis.. HEMATOLOGIC/LYMPHATIC: Negative for bleed or purpura. MUSCULOSKELTAL: Negative for Myalgia or arthralgia. NEURLOGICAL: No LOC, Sz or syncope, blurred vision dizziness or abnormality.. BEHAVIORAL/PSYCH: Negative. ENDOCRINE: Negative. Objective - Vital Signs Vital signs: Vital Signs Temp 97.7 F 07/17/18 08:12 Pulse 86 07/17/18 08:12 Resp 18 07/17/18 08:12 BP 92/43 07/17/18 08:12 Pulse Ox 90 L 07/17/18 08:12 Intake & Output 07/16/18 07/17/18 07/17/18 18:59 06:59 18:59 Intake Total 300 800 240 Output Total 1000 350 Balance 300 -200 -110 Weight 67.7 kg 61 kg Intake: Oral 300 800 240 Output: Urine 1000 350 Other: Voiding Method Urinal Urinal Urinal # Voids 1 - Exam General Appearance: Alert, cooperative, no distress, appears stated age. Patient resting in bed and appears to be comfortable. Neck HEENT: Supple, no lymphadenopathy, no thyroid enlargement, no carotid bruits. Lungs: Clear to auscultation without crackles or wheezes no rhonchi, no deformity. Chest Wall: Chest wall normal expansion with deep inspiration no tenderness and no deformity was found on exam, no costochondral pain or discomfort. Heart: Regular rate and rhythm, S1, S2 normal, no murmur, rub or gallop. Back: Symmetric, no curvature, ROM normal, no CVA tenderness. Abdomen: Soft, non-tender, bowel sounds active all four quadrants, no masses, no organomegaly. Extremities: Extremities normal, atraumatic, no cyanosis or edema. Pulses: 2+ and symmetric. Skin: Skin color, texture, tugor normal, no rashes or lesions. Neurologic: Alert oriented x3 cranial nerves II through XII intact, no motor deficit, no abnormal balance or gait. - Labs CBC & Chem 7: 07/17/18 06:13 07/17/18 06:13 Labs: Abnormal Lab Results - Last 24 Hours (Table) 07/17/18 07/17/18 07/17/18 Range/Units 06:13 06:13 06:13 RBC 3.43 L (4.30-5.90) m/uL Hgb 11.4 L (13.0-17.5) gm/dL Hct 34.4 L (39.0-53.0) % MCV 100.3 H (80.0-100.0) fL Lymphocytes # 0.5 L (1.0-4.8) k/uL PT 34.2 H (9.0-12.0) sec INR 3.6 H (<1.2) Potassium 2.8 L (3.5-5.1) mmol/L Chloride 95 L (98-107) mmol/L Carbon Dioxide 38 H (22-30) mmol/L BUN 41 H (9-20) mg/dL Creatinine 2.47 H (0.66-1.25) mg/dL Glucose 111 H (74-99) mg/dL Calcium 7.8 L (8.4-10.2) mg/dL Assessment and Plan Plan: 1 acute on chronic systolic heart failure and nonischemic cardiomyopathy. Continue Lasix changed to oral at 40 mg twice daily, Aldactone discontinued. Continue Coreg and Entresto. Watch daily weight intake and output. 2 severe right-sided chest pain with rib fracture: Continue conservative management with lidocaine topical along with pain management. 3 worsening dyspnea and shortness of breath: Combination of COPD, CHF, continue updraft treatment and incentive spirometry. 4 chronic atrial fibrillation: Pulse rates under control currently remain on amiodarone Coreg. Patient will start eliquis once INR is down. 5 COPD: Continue O2 continue DuoNeb and Pulmicort. 6 recurrent depression and worsening psychosis: Has been doing well on the clonazepam. 7 adrenal insufficiency: Patient has been on Florinef and if needed Cortef can be added as well. 8 BPH: Has been on Proscar and Flomax. 9 hypothyroidism: Continue patient on levothyroxine 25 g daily. 10 hyperlipidemia: Remain on Mevacor 40 mg daily. 11 chronic pain syndrome: Has been on hydrocodone 7.5 mg half tablet daily times a day as needed. 12 irritable bowel syndrome: Has been on Naye on as needed basis. 13 gout: Has been on allopurinol. 14 GI prophylaxis: Continue patient on Pepcid 20 mg daily. 15 DVT prophylaxis: Remain on anticoagulation. 16 hyper coagulopathy secondary to Coumadin use CODE STATUS: Full code. Discharge plan: Home with [facility] on Friday or Friday Impression and plan of care have been directed as dictated by the signing physician. Luma Mancera nurse practitioner acting as scribe for signing physician.
[2018-07-17] MEDS: FUROSEMIDE 40 MG TAB PO SCH (17:21)
[2018-07-17] MEDS ORDERED: POTASSIUM CHLORIDE ER 20 MEQ TAB.ER PO STA (17:53)
[2018-07-17] MEDS: MELATONIN 5 MG TABLET PO SCH (20:51)
[2018-07-17] MEDS: clonazePAM 0.5 MG TAB PO SCH (20:52)
[2018-07-17] MEDS: ATORVASTATIN 10 MG TAB PO SCH (20:52)
[2018-07-17] MEDS: SACUBITRIL/VALSARTAN 24 MG-26 MG TABLET PO SCH (21:26)
[2018-07-17 22:56] LABS: Appearance,Urine Clear (Clear); Bilirubin,Urine Negative (Negative); Blood,Urine Negative (Negative); Color,Urine Yellow; Glucose,Urine (UA) Negative (Negative); Ketones,Urine Negative (Negative); Leukocyte Esterase,Urine Negative (Negative); Nitrite,Urine Negative (Negative); Protein,Urine Negative (Negative)
[2018-07-18] MEDS: LEVOTHYROXINE 25 MCG TAB PO SCH (06:11)
[2018-07-18] MEDS: MIDODRINE 5 MG TAB PO SCH ×3 (06:11→17:17)
[2018-07-18] MEDS: CARVEDILOL 3.125 MG TAB PO SCH ×2 (06:11→17:17)
[2018-07-18] MEDS: DICYCLOMINE 20 MG TAB PO SCH ×3 (06:11→17:17)
[2018-07-18 06:50] LABS: Calcium 8.4 mg/dL (8.4-10.2); Magnesium 1.6 mg/dL (1.6-2.3); Potassium 4.3 mmol/L (3.5-5.1)
[2018-07-18 08:11] LABS: INR 3.2 (<1.2); Prothrombin Time 30.5 sec (9.0-12.0)
[2018-07-18] MEDS: oxyCODONE-APAP 7.5-325MG 1 EACH TAB PO SCH ×3 (08:45→23:02)
[2018-07-18] MEDS: HYDROCORTISONE 10 MG TAB PO SCH ×2 (09:17→20:24)
[2018-07-18] MEDS: FINASTERIDE 5 MG TAB PO SCH (09:17)
[2018-07-18] MEDS: ALLOPURINOL 100 MG TAB PO SCH (09:17)
[2018-07-18] MEDS: CITALOPRAM HYDROBROMIDE 20 MG TAB PO SCH ×2 (09:17→20:24)
[2018-07-18] MEDS: AMIODARONE 200 MG TAB PO SCH (09:17)
[2018-07-18] MEDS: TAMSULOSIN 0.4 MG CAP.ER.24H PO SCH (09:17)
[2018-07-18] MEDS: FUROSEMIDE 40 MG TAB PO SCH ×2 (09:17→17:17)
[2018-07-18] MEDS: POTASSIUM CHLORIDE ER 20 MEQ TAB.ER PO SCH (09:17)
[2018-07-18] MEDS: FLUDROCORTISONE 0.1 MG TAB PO SCH (09:17)
[2018-07-18] MEDS: NITROGLYCERIN OINT 1 INCH/GM PACKET TOPICAL SCH ×4 (09:38→20:26)
--- NOTE | 2018-07-18 11:02 | P.PN ---
Subjective Progress Note Date: 07/18/18 73-year-old male with chronic history of cardiomyopathy, COPD, chronic history of depression and chronic history of A. fib who fell recently and fractured few ribs in the right side developed to have worsening pain and discomfort in the right side especially deep inspiration. Patient presented to [facility] today because of worsening symptom was seen and evaluated his troponin was borderline, patient BNP was very high and patient was diagnosed clinically with congestive heart failure with worsening exacerbation most likely systolic. Patient will be admitted to the hospital continue to treat repeat fracture with no pneumothorax and continue to treat heart failure. Patient was started on the Entresto we'll titrate the dose higher. 07/16: patient is sitting up in bed and family member at bedside. He denies any complaints today. INR is down to 4.3. BUN 34 and creatinine 2.30. Patient has met with cardiology and plan is to start eliquis once his INR is down. Patient was concerned because he has tried eliquis in the past but it was too much money. histology manager has checked cause and they will provide one month free and from thereon $40 per month. Pulse ox is 97% on 5 L, he has been afebrile, blood pressure 91/52, orthostatic vital signs at been negative. 07/17: Pulse ox is 90-94% on 4 L nasal cannula. He has been afebrile, heart rate in the 80s, blood pressure 92/43. INR is 3.6. Potassium 2.8 and will be replaced, chloride 95, CO2 38, BUN 41, creatinine 2.47. Consult with Dr. Shante ann and he has recommended continuing Lasix, discontinue nonsteroidals , check urinalysis, repeat electrolytes and check magnesium and potassium replaced. We will also discontinue Aldactone and Lasix changed to 40 mg oral twice daily. Anticipate probable discharge over the weekend. 07/18: Heart rate is running in the 80s and 90s, blood pressure 107/72. Afebrile , pulse ox 95% on 2 L. INR is 3.2, BUN 45 and creatinine 2.44. Sodium 1:30, potassium 4.3, chloride 97, CO2 37. Lungs are currently clear to auscultation. No pedal edema. Patient states he is eating and drinking adequately. He has had 2 bowel movements. We will plan to monitor overnight, recheck INR and kidney function in the morning and possible discharge on Friday. Review of Systems CONSTITUTIONAL: No fever, no chills. No lightheadedness or dizziness. EYES: No icterus sclerae, no conjunctivitis. EARS, NOSE, MOUTH, THROAT, and FACE: No sore throat, lymphadenopathy, carotid bruits or deformity. RESPIRATORY: No SOB cough or wheezes. CARDIOVASCULAR: Reports CP, Palpitation, PND, Orthopnea, or angina. GASTROINTESTINAL: No Abd pain, Nausea or vomiting, no Diarrhea or constipation, No GI Bleed, no distention or masses. GENITOURINARY: Negative for Hematuria or UTI, no kidney stones. INTEGUMENT/BREAST: Negative for any muscular injury with mild osteoarthritis.. HEMATOLOGIC/LYMPHATIC: Negative for bleed or purpura. MUSCULOSKELTAL: Negative for Myalgia or arthralgia. NEURLOGICAL: No LOC, Sz or syncope, blurred vision dizziness or abnormality.. BEHAVIORAL/PSYCH: Negative. ENDOCRINE: Negative. Objective - Vital Signs Vital signs: Vital Signs Temp 98.0 F 07/18/18 04:00 Pulse 90 07/18/18 06:31 Resp 16 07/18/18 04:00 BP 114/83 07/18/18 06:31 Pulse Ox 95 07/18/18 04:00 Intake & Output 07/17/18 07/18/18 07/18/18 18:59 06:59 18:59 Intake Total 720 Output Total 350 250 Balance 370 -250 Weight 68.6 kg Intake: Oral 720 Output: Urine 350 250 Other: Voiding Method Urinal Toilet Urinal - Exam General Appearance: Alert, cooperative, no distress, appears stated age. Patient resting in bed and appears to be comfortable. Neck HEENT: Supple, no lymphadenopathy, no thyroid enlargement, no carotid bruits. Lungs: Clear to auscultation without crackles or wheezes no rhonchi, no deformity. Chest Wall: Chest wall normal expansion with deep inspiration no tenderness and no deformity was found on exam, no costochondral pain or discomfort. Heart: Regular rate and rhythm, S1, S2 normal, no murmur, rub or gallop. Back: Symmetric, no curvature, ROM normal, no CVA tenderness. Abdomen: Soft, non-tender, bowel sounds active all four quadrants, no masses, no organomegaly. Extremities: Extremities normal, atraumatic, no cyanosis or edema. Pulses: 2+ and symmetric. Skin: color, texture, tugor normal, no rashes or lesions. Neurologic: Alert oriented x3 cranial nerves II through XII intact, no motor deficit, no abnormal balance or gait. - Labs CBC & Chem 7: 07/17/18 06:13 07/18/18 05:47 Labs: Abnormal Lab Results - Last 24 Hours (Table) 07/17/18 07/18/18 Range/Units 17:04 05:47 Potassium 3.2 L (3.5-5.1) mmol/L Chloride 97 L (98-107) mmol/L Carbon Dioxide 37 H (22-30) mmol/L BUN 45 H (9-20) mg/dL Creatinine 2.44 H (0.66-1.25) mg/dL Glucose 118 H (74-99) mg/dL Assessment and Plan Plan: 1 acute on chronic systolic heart failure and nonischemic cardiomyopathy. Continue Lasix changed to oral at 40 mg twice daily, Aldactone discontinued. Continue Coreg and Entresto. Watch daily weight intake and output. 2 severe right-sided chest pain with rib fracture: Continue conservative management with lidocaine topical along with pain management. Continue incentive spirometry. 3 worsening dyspnea and shortness of breath: Combination of COPD, CHF, continue updraft treatment and incentive spirometry. 4 chronic atrial fibrillation: Pulse rates under control currently remain on amiodarone Coreg. Patient will start eliquis once INR is down. 5 COPD: Continue O2 continue DuoNeb and Pulmicort. 6 recurrent depression and worsening psychosis: Has been doing well on the clonazepam. 7 adrenal insufficiency: Patient has been on Florinef and if needed Cortef can be added as well. 8 BPH: Has been on Proscar and Flomax. 9 hypothyroidism: Continue patient on levothyroxine 25 g daily. 10 hyperlipidemia: Remain on Mevacor 40 mg daily. 11 chronic pain syndrome: Has been on hydrocodone 7.5 mg half tablet daily times a day as needed. 12 irritable bowel syndrome: Has been on Naye on as needed basis. 13 gout: Has been on allopurinol. 14 GI prophylaxis: Continue patient on Pepcid 20 mg daily. 15 DVT prophylaxis: Remain on anticoagulation. 16 hyper coagulopathy secondary to Coumadin use CODE STATUS: Full code. Discharge plan: Home with [facility] on Friday Impression and plan of care have been directed as dictated by the signing physician. Luma Mancera nurse practitioner acting as scribe for signing physician.
--- NOTE | 2018-07-18 11:33 | P.PN ---
Subjective Progress Note Date: 07/18/18 This is a 73-year-old gentleman with past medical history significant for chronic persistent atrial fibrillation on long-term anticoagulation, nonischemic cardiomyopathy, chronic systolic congestive heart failure, hyperlipidemia, hypertension, valvular heart disease, status post single chamber ICD, chronic kidney disease, history of ventricular fibrillation. He follows regularly with Dr. Cárdenas in the office. He presents to the hospital on this admission with symptoms of shortness of breath which the patient states has been going on for only one day duration. Patient does state that on the he did experience a fall, he came to the emergency room to be evaluated at that time, and was found to have subtle nondisplaced lateral anterior lateral right eighth and ninth and 10th rib fractures. Chest x-ray performed this admission showed bilateral infiltrate and pleural effusion, correlate for central venous congestion. Otherwise consider interstitial pneumonitis or chronic interstitial lung disease. Multiple right sided recent rib fractures are noted, no evidence of any pneumothorax. EKG shows atrial fibrillation with a controlled ventricular response. White blood cell count is normal, hemoglobin 12.3 on admission, 10.9 this morning. Platelet count 239. Pro time on admission 74.4 with an INR 7.6, 41.7 and 4.3 this morning. Sodium 139, potassium 3.5, BUN 34 and creatinine 2.3. Magnesium level I.6. Troponin 0.017. BNP level 16,000. Patient had an echocardiogram with Doppler study performed in April which revealed an ejection fraction of 20-25%, severe mitral regurgitation, moderate tricuspid regurg. Blood pressure 98/60 with a heart rate in the 90s.93% on 4l. 07/17/2018 Patient was seen and examined this morning, feeling significantly better overall. Blood pressure 94/60 with a heart rate in the 80s, 94% on 4 L of oxygen. White blood cell count 6.0, hemoglobin 11.4, platelet count 248. INR 3.6. Sodium 139, potassium 2.8, BUN 41 and creatinine 2.4. Nephrology was consulted to see the patient, they have continued his Lasix at 40 mg by mouth twice a day. 07/18/2018 Patient was seen and examined this morning feels well, denies any chest pain, breathing is overall stable. Hemodynamically stable. Protime 30.5, INR 3.2. Sodium 138, potassium 4.3, BUN 45, creatinine 2.4. Magnesium 1.6. Objective - Vital Signs Vital signs: Vital Signs Temp 98.0 F 07/18/18 04:00 Pulse 90 07/18/18 06:31 Resp 16 07/18/18 04:00 BP 114/83 07/18/18 06:31 Pulse Ox 95 07/18/18 08:09 Intake & Output 07/17/18 07/18/18 07/18/18 18:59 06:59 18:59 Intake Total 720 230 Output Total 350 250 Balance 370 -250 230 Weight 68.6 kg Intake: Oral 720 230 Output: Urine 350 250 Other: Voiding Method Urinal Toilet Urinal # Voids 1 - Exam PHYSICAL EXAMINATION: GENERAL: 73-year-old gentleman in no acute distress at the time of my examination HEENT: Head is atraumatic, normocephalic. Pupils equal, round. Sclera anicteric. Conjunctiva are clear. Mucous membranes of the mouth are moist. Neck is supple. There is no elevated jugular venous pressure. No carotid bruit is heard. HEART EXAMINATION: S1 and S2 irregularly irregular a systolic ejection murmur is heard CHEST EXAMINATION: Lungs are clear with mild diminished air entry to the bases bilaterally ABDOMEN: Soft, nontender. Bowel sounds are heard. No organomegaly noted. EXTREMITIES: 2+ peripheral pulses with no evidence of peripheral edema and no calf tenderness noted. NEUROLOGIC patient is awake, alert and oriented 3 . - Labs CBC & Chem 7: 07/17/18 06:13 07/18/18 05:47 Labs: Abnormal Lab Results - Last 24 Hours (Table) 07/17/18 07/18/18 07/18/18 Range/Units 17:04 05:47 05:47 PT 30.5 H (9.0-12.0) sec INR 3.2 H (<1.2) Potassium 3.2 L (3.5-5.1) mmol/L Chloride 97 L (98-107) mmol/L Carbon Dioxide 37 H (22-30) mmol/L BUN 45 H (9-20) mg/dL Creatinine 2.44 H (0.66-1.25) mg/dL Glucose 118 H (74-99) mg/dL Assessment and Plan Plan: Assessment and plan #1 systolic congestive heart failure acute on chronic #2 known history of chronic persistent atrial fibrillation on Coumadin for anticoagulation, INR on admission was 7.6, 3.6 this morning. #3 nonischemic cardiomyopathy with prior AICD, single chamber #4 hyperlipidemia #5 hypertension #6 chronic kidney disease #7 history of ventricular fibrillation #8 recent fall with evidence of rib fractures #9 recent hospitalization in April of this year with orthostatic hypotension, associated dizziness and near syncope. Plan Cardiology's perspective, patient may be able to be discharged once cleared by primary. We will make him a follow-up appointment in the office post discharge. DNP note has been reviewed, I agree with a documented findings and plan of care. Patient was seen and examined.
[2018-07-18] MEDS: MAGNESIUM SULFATE-D5W PMX 1 GM in DEXTROSE/WATER 1 100ML.BAG IVPB SCH ×2 (11:43→12:27)
--- NOTE | 2018-07-18 12:25 | P.PN ---
Subjective Progress Note Date: 07/18/18 Seen and examined and examined for the follow-up of acute kidney injury. No nausea vomiting diarrhea. Feels better. Edema is better Objective - Vital Signs Vital signs: Vital Signs Temp 98.0 F 07/18/18 04:00 Pulse 90 07/18/18 06:31 Resp 16 07/18/18 04:00 BP 114/83 07/18/18 06:31 Pulse Ox 95 07/18/18 08:09 Intake & Output 07/17/18 07/18/18 07/18/18 18:59 06:59 18:59 Intake Total 720 230 Output Total 350 250 Balance 370 -250 230 Weight 68.6 kg Intake: Oral 720 230 Output: Urine 350 250 Other: Voiding Method Urinal Toilet Urinal # Voids 1 - Exam No acute distress S1-S2 heard Basal crepitations Trace edema - Labs CBC & Chem 7: 07/17/18 06:13 07/18/18 05:47 Labs: Abnormal Lab Results - Last 24 Hours (Table) 07/17/18 07/18/18 07/18/18 Range/Units 17:04 05:47 05:47 PT 30.5 H (9.0-12.0) sec INR 3.2 H (<1.2) Potassium 3.2 L (3.5-5.1) mmol/L Chloride 97 L (98-107) mmol/L Carbon Dioxide 37 H (22-30) mmol/L BUN 45 H (9-20) mg/dL Creatinine 2.44 H (0.66-1.25) mg/dL Glucose 118 H (74-99) mg/dL Assessment and Plan Assessment: #1 acute kidney injury secondary to type I cardiorenal syndrome/ATN. #2 chronic kidney disease secondary to nephrosclerosis and type to cardiorenal syndrome. Baseline creatinine recently 2.0-2.5 MG per DL. #3 hypokalemia secondary to diuretics and also from fludrocortisone #4 pulmonary edema improving #5 CHF with systolic dysfunction EF of 20-25%. Plan: #1 continue with current diuretic regimen. Creatinine stable. #2 stop fludrocortisone as it is causing worsening hypokalemia and fluid retention. #3 continue with midodrine for hemodynamic support #4 replace potassium #5 repeat labs in the morning if renal function stable condition discharge from nephrology point of view to be followed up in the office.
[2018-07-18] MEDS: ATORVASTATIN 10 MG TAB PO SCH (20:24)
[2018-07-18] MEDS: clonazePAM 0.5 MG TAB PO SCH (20:24)
[2018-07-18] MEDS: MELATONIN 5 MG TABLET PO SCH (20:24)
[2018-07-18] MEDS: SACUBITRIL/VALSARTAN 24 MG-26 MG TABLET PO SCH (20:24)
[2018-07-19] MEDS: LEVOTHYROXINE 25 MCG TAB PO SCH (06:12)
[2018-07-19] MEDS: CARVEDILOL 3.125 MG TAB PO SCH (06:12)
[2018-07-19] MEDS: DICYCLOMINE 20 MG TAB PO SCH (06:12)
[2018-07-19] MEDS: MIDODRINE 5 MG TAB PO SCH (06:13)
[2018-07-19 06:30] LABS: Calcium 8.1 mg/dL (8.4-10.2); Potassium 4.2 mmol/L (3.5-5.1)
[2018-07-19 06:32] LABS: INR 2.2 (<1.2); Prothrombin Time 21.5 sec (9.0-12.0)
[2018-07-19] MEDS: CITALOPRAM HYDROBROMIDE 20 MG TAB PO SCH (08:34)
[2018-07-19] MEDS: oxyCODONE-APAP 7.5-325MG 1 EACH TAB PO SCH (08:34)
[2018-07-19] MEDS: FUROSEMIDE 40 MG TAB PO SCH (08:35)
[2018-07-19] MEDS: AMIODARONE 200 MG TAB PO SCH (08:35)
[2018-07-19] MEDS: ALLOPURINOL 100 MG TAB PO SCH (08:35)
[2018-07-19] MEDS: POTASSIUM CHLORIDE ER 20 MEQ TAB.ER PO SCH (08:35)
[2018-07-19] MEDS: NITROGLYCERIN OINT 1 INCH/GM PACKET TOPICAL SCH (08:36)
[2018-07-19] MEDS: HYDROCORTISONE 10 MG TAB PO SCH (08:36)
[2018-07-19 09:15] VITALS: BP 99/71; PULSE 83; RESP 20; TEMP 98.2
--- NOTE | 2018-07-19 11:26 | P.DS ---
Providers Date of admission: 07/15/18 12:17 Expected date of discharge: 07/19/18 Attending physician: Merritt Patel Consults: 07/15/18 12:17 Consult Physician Routine Consulting Provider: [facility] Consult Reason/Comments: Acute pulmonary edema Do you want consulting provider notified?: Yes 07/17/18 10:37 Consult Physician Routine Consulting Provider: Prashant Frey Consult Reason/Comments: KEYANA Do you want consulting provider notified?: Yes Primary care physician: [facility] Course: 73-year-old male with chronic history of cardiomyopathy, COPD, chronic history of depression and chronic history of A. fib who fell recently and fractured few ribs in the right side developed to have worsening pain and discomfort in the right side especially deep inspiration. Patient presented to [facility] today because of worsening symptom was seen and evaluated his troponin was borderline, patient BNP was very high and patient was diagnosed clinically with congestive heart failure with worsening exacerbation most likely systolic. Patient will be admitted to the hospital continue to treat repeat fracture with no pneumothorax and continue to treat heart failure. Patient was started on the Entresto we'll titrate the dose higher. 07/16: patient is sitting up in bed and family member at bedside. He denies any complaints today. INR is down to 4.3. BUN 34 and creatinine 2.30. Patient has met with cardiology and plan is to start eliquis once his INR is down. Patient was concerned because he has tried eliquis in the past but it was too much money. manager corporate strategy has checked cause and they will provide one month free and from thereon $40 per month. Pulse ox is 97% on 5 L, he has been afebrile, blood pressure 91/52, orthostatic vital signs at been negative. 07/17: Pulse ox is 90-94% on 4 L nasal cannula. He has been afebrile, heart rate in the 80s, blood pressure 92/43. INR is 3.6. Potassium 2.8 and will be replaced, chloride 95, CO2 38, BUN 41, creatinine 2.47. Consult with Dr. Shante ann and he has recommended continuing Lasix, discontinue nonsteroidals , check urinalysis, repeat electrolytes and check magnesium and potassium replaced. We will also discontinue Aldactone and Lasix changed to 40 mg oral twice daily. Anticipate probable discharge over the weekend. 07/18: Heart rate is running in the 80s and 90s, blood pressure 107/72. Afebrile , pulse ox 95% on 2 L. INR is 3.2, BUN 45 and creatinine 2.44. Sodium 1:30, potassium 4.3, chloride 97, CO2 37. Lungs are currently clear to auscultation. No pedal edema. Patient states he is eating and drinking adequately. He has had 2 bowel movements. We will plan to monitor overnight, recheck INR and kidney function in the morning and possible discharge on Friday. 07/19: INR is 2.2, BUN 42 and creatinine 2.30, CO2 is 36. Magnesium 1.8. The patient states that he has been ambulating and doing well. No shortness of breath. He has some continued chest pain due to rib fractures. He is using incentive spirometry. Patient will be discharged home today in stable condition. Patient's picked up his prescription for eliquis yesterday and a few other medical patient changes have been made. Patient does have Lasix at home and does not need a new prescription for dose change. Discharge diagnoses: 1 acute on chronic systolic heart failure and nonischemic cardiomyopathy. 2 severe right-sided chest pain with rib fracture 3 worsening dyspnea and shortness of breath: Combination of COPD, CHF 4 chronic atrial fibrillation 5 COPD 6 recurrent depression and worsening psychosis 7 adrenal insufficiency 8 BPH 9 hypothyroidism 10 hyperlipidemia 11 chronic pain syndrome 12 irritable bowel syndrome 13 gout, chronic 14 hyper coagulopathy secondary to Coumadin use Discharge plan: Home with [facility] Impression and plan of care have been directed as dictated by the signing physician. Luma Mancera nurse practitioner acting as scribe for signing physician. Patient Condition at Discharge: Good Plan - Discharge Summary Discharge Rx Participant: No New Discharge Prescriptions: New Furosemide [Lasix] 40 mg PO BID@0900,1600 #60 tab Apixaban [Eliquis] 2.5 mg PO BID #60 tab Continue Lovastatin [Mevacor] 40 mg PO HS Dicyclomine [Bentyl] 20 mg PO AC-TID Albuterol Sulfate [Proair Hfa] 2 puff INHALATION RT-TID PRN PRN Reason: Dyspnea Levothyroxine Sodium [Synthroid] 25 mcg PO DAILY Citalopram Hydrobromide [Citalopram HBr] 20 mg PO BID Hydrocortisone [Cortef] 10 mg PO BID #0 Sacubitril/Valsartan [Entresto 24 mg-26 mg Tablet] 1 tab PO HS Carvedilol [Coreg] 3.125 mg PO BID clonazePAM 0.25 mg PO HS Midodrine HCl [ProAmatine] 10 mg PO TID #0 Potassium Chloride ER [K-Dur 20] 20 meq PO DAILY Albuterol Sulfate [Proair Hfa] 2 puff INHALATION RT-TID PRN PRN Reason: Shortness Of Breath oxyCODONE-APAP 7.5-325MG [Percocet 7.5-325 mg] 0.5 - 1 tab PO TID Allopurinol [Zyloprim] 100 mg PO DAILY Finasteride [Proscar] 5 mg PO Q48H Tamsulosin HCl [Flomax] 0.4 mg PO Q48H Amiodarone [Cordarone] 200 mg PO DAILY Eylea 2mg/O.05ml 1 injection RIGHT EYE Q42D Discontinued Fludrocortisone [Florinef] 0.1 mg PO BID Metolazone [Zaroxolyn] 2.5 mg PO DAILY PRN PRN Reason: HIGH BLOOD PRESSURE Spironolactone [Aldactone] 12.5 mg PO DAILY Warfarin [Coumadin] 1.5 mg PO WEFR Furosemide [Lasix] 20 mg PO DAILY Warfarin [Coumadin] 3 mg PO SUMOTUTHSA Discharge Medication List Albuterol Sulfate [Proair Hfa] 2 puff INHALATION RT-TID PRN 10/27/13 [History] Dicyclomine [Bentyl] 20 mg PO AC-TID 10/27/13 [History] Lovastatin [Mevacor] 40 mg PO HS 10/27/13 [History] Citalopram Hydrobromide [Citalopram HBr] 20 mg PO BID 03/27/16 [History] Levothyroxine Sodium [Synthroid] 25 mcg PO DAILY 03/27/16 [History] Hydrocortisone [Cortef] 10 mg PO BID #0 04/08/18 [Rx] Sacubitril/Valsartan [Entresto 24 mg-26 mg Tablet] 1 tab PO HS 04/24/18 [History ] Carvedilol [Coreg] 3.125 mg PO BID 05/06/18 [History] clonazePAM 0.25 mg PO HS 05/06/18 [History] Midodrine HCl [ProAmatine] 10 mg PO TID #0 05/10/18 [Rx] Albuterol Sulfate [Proair Hfa] 2 puff INHALATION RT-TID PRN 07/15/18 [History] Allopurinol [Zyloprim] 100 mg PO DAILY 07/15/18 [History] Amiodarone [Cordarone] 200 mg PO DAILY 07/15/18 [History] Eylea 2mg/O.05ml 1 injection RIGHT EYE Q42D 07/15/18 [History] Finasteride [Proscar] 5 mg PO Q48H 07/15/18 [History] Potassium Chloride ER [K-Dur 20] 20 meq PO DAILY 07/15/18 [History] Tamsulosin HCl [Flomax] 0.4 mg PO Q48H 07/15/18 [History] oxyCODONE-APAP 7.5-325MG [Percocet 7.5-325 mg] 0.5 - 1 tab PO TID 07/15/18 [ History] Apixaban [Eliquis] 2.5 mg PO BID #60 tab 07/19/18 [Rx] Furosemide [Lasix] 40 mg PO BID@0900,1600 #60 tab 07/19/18 [Rx] Follow up Appointment(s)/Referral(s): Lis Cárdenas MD [STAFF PHYSICIAN] - 07/27/18 8:45 am Merritt Patel MD [Primary Care Provider] - 07/23/18 10:00 am Patient Instructions/Handouts: Pulmonary Edema (DC), Rib Fracture (DC) Activity/Diet/Wound Care/Special Instructions: pts Eliquis script is filled in [facility] pharmacy for free, pts copay will be $43/mo for following refills Discharge Disposition: HOME SELF-CARE
== END 2018-07-19 11:31 | disposition home or self-care (01) | DRG 291 ==
LOC: EC 09:21 → 3SCARD 12:17
PROVIDERS: ADMIT Internal Medicine Geriatric Medicine; ATTEND Internal Medicine Geriatric Medicine
DX: I13.0 Hypertensive heart and chronic kidney disease with heart failure and stage 1 through stage 4 chronic kidney disease, or unspecified chronic kidney disease (principal); I50.23 Acute on chronic systolic (congestive) heart failure; N17.0 Acute kidney failure with tubular necrosis; S22.49XA Multiple fractures of ribs, unspecified side, initial encounter for closed fracture; E27.40 Unspecified adrenocortical insufficiency; I48.1 Persistent atrial fibrillation; F33.3 Major depressive disorder, recurrent, severe with psychotic symptoms; I08.1 Rheumatic disorders of both mitral and tricuspid valves; J44.9 Chronic obstructive pulmonary disease, unspecified; N18.3 Chronic kidney disease, stage 3 (moderate); I42.9 Cardiomyopathy, unspecified; I69.398 Other sequelae of cerebral infarction; E87.6 Hypokalemia; E78.5 Hyperlipidemia, unspecified; E03.9 Hypothyroidism, unspecified; N40.0 Benign prostatic hyperplasia without lower urinary tract symptoms; G89.4 Chronic pain syndrome; H53.8 Other visual disturbances; R40.2362 Coma scale, best motor response, obeys commands, at arrival to emergency department; R40.2252 Coma scale, best verbal response, oriented, at arrival to emergency department; R40.2142 Coma scale, eyes open, spontaneous, at arrival to emergency department; H35.30 Unspecified macular degeneration; G43.909 Migraine, unspecified, not intractable, without status migrainosus; D86.0 Sarcoidosis of lung; F41.9 Anxiety disorder, unspecified; K21.9 Gastro-esophageal reflux disease without esophagitis; M1A.9XX0 Chronic gout, unspecified, without tophus (tophi); K58.9 Irritable bowel syndrome, unspecified; M17.0 Bilateral primary osteoarthritis of knee; R79.1 Abnormal coagulation profile; T45.515A Adverse effect of anticoagulants, initial encounter; T50.2X5A Adverse effect of carbonic-anhydrase inhibitors, benzothiadiazides and other diuretics, initial encounter; M16.0 Bilateral primary osteoarthritis of hip; H91.90 Unspecified hearing loss, unspecified ear; I25.2 Old myocardial infarction; Z79.890 Hormone replacement therapy; Z79.01 Long term (current) use of anticoagulants; Z79.891 Long term (current) use of opiate analgesic; Z79.52 Long term (current) use of systemic steroids; Z79.899 Other long term (current) drug therapy; Z91.81 History of falling; Z87.891 Personal history of nicotine dependence; Z95.810 Presence of automatic (implantable) cardiac defibrillator; Z90.49 Acquired absence of other specified parts of digestive tract; Z98.52 Vasectomy status; Z86.14 Personal history of Methicillin resistant Staphylococcus aureus infection; Z95.5 Presence of coronary angioplasty implant and graft; Z87.442 Personal history of urinary calculi; Z87.820 Personal history of traumatic brain injury; Z88.1 Allergy status to other antibiotic agents; Z91.041 Radiographic dye allergy status; Z88.8 Allergy status to other drugs, medicaments and biological substances; Z91.048 Other nonmedicinal substance allergy status; W19.XXXA Unspecified fall, initial encounter; Z80.42 Family history of malignant neoplasm of prostate; Z82.61 Family history of arthritis; Z82.49 Family history of ischemic heart disease and other diseases of the circulatory system; Z84.1 Family history of disorders of kidney and ureter; Z82.0 Family history of epilepsy and other diseases of the nervous system
CPT/HCPCS: 36415; 71046; 80048; 80053; 81003; 83735; 83880; 84132; 84484; 85025; 85610; 85730; 93005; 94760; 96374; 96375; 96376; 99291

== ENCOUNTER 2018-07-21 20:51 | Inpatient (IN) | payer MEDICARE ==
[2018-07-21] MEDS ORDERED: METHOCARBAMOL 500 MG TAB PO STA (21:33)
[2018-07-21] MEDS ORDERED: LIDOCAINE 5% PATCH TOPICAL STA (21:33)
--- NOTE | 2018-07-21 21:40 | ED ---
SOB HPI - General Chief Complaint: Shortness of Breath Stated Complaint: JUAN M,heart problems Time Seen by Provider: 07/21/18 21:04 Source: patient Mode of arrival: wheelchair Limitations: no limitations - History of Present Illness Initial Comments: Is a 73-year-old male with history of systolic heart failure, CK and he, recent rib fractures who presents emergency department for decreased urine output, difficulty with breathing and persistent right-sided chest discomfort from the rib injuries. He states he is mostly concerned about his inability to urinate. He is also complaining of penile swelling that is relieved with 40 mg of Lasix. He states he hasn't urinated very little since being discharged from the hospital. He states that he did urinate slightly about 30 minutes ago however it was not much. He states that prior to that the last time he urinated was 3 hours before that however again it was a very little amount. He states he does not feel like he has a full bladder. He states he does have bilateral flank discomfort is worse with movement. He is concerned that his kidneys baby worsening. He denies any dark or bloody stools. No nausea or vomiting. No chest pain except for where the rib injuries are. He does admit to some shortness of breath however no increased edema in his lower extremities. No other acute complaints. - Related Data Home Medications Medication Instructions Recorded Confirmed Dicyclomine [Bentyl] 20 mg PO AC-TID PRN 10/27/13 07/21/18 Lovastatin [Mevacor] 40 mg PO HS 10/27/13 07/21/18 Citalopram Hydrobromide 20 mg PO BID 03/27/16 07/21/18 [Citalopram HBr] Levothyroxine Sodium [Synthroid] 25 mcg PO DAILY 03/27/16 07/21/18 Sacubitril/Valsartan [Entresto 24 1 tab PO HS 04/24/18 07/21/18 mg-26 mg Tablet] Carvedilol [Coreg] 3.125 mg PO BID 05/06/18 07/21/18 clonazePAM 0.25 mg PO HS 05/06/18 07/21/18 Albuterol Sulfate [Proair Hfa] 2 puff INHALATION RT-TID PRN 07/15/18 07/21/18 Allopurinol [Zyloprim] 100 mg PO DAILY 07/15/18 07/21/18 Amiodarone [Cordarone] 200 mg PO DAILY 07/15/18 07/21/18 Eylea 2mg/O.05ml 1 injection RIGHT EYE Q42D 07/15/18 07/21/18 Finasteride [Proscar] 5 mg PO Q48H 07/15/18 07/21/18 Potassium Chloride ER [K-Dur 20] 20 meq PO DAILY 07/15/18 07/21/18 Tamsulosin HCl [Flomax] 0.4 mg PO Q48H 07/15/18 07/21/18 Furosemide [Lasix] 40 mg PO DAILY 07/21/18 07/21/18 Previous Rx's Medication Instructions Recorded Hydrocortisone [Cortef] 10 mg PO BID #0 04/08/18 Midodrine HCl [ProAmatine] 10 mg PO TID #0 05/10/18 Apixaban [Eliquis] 2.5 mg PO BID #60 tab 07/19/18 Allergies Allergy/AdvReac Type Severity Reaction Status Date / Time Iodinated Contrast- Oral and Allergy Rash/Hives Verified 07/21/18 21:36 IV Dye [Iodinated Contrast Media - IV Dye] nitroglycerin Allergy passed out Verified 07/21/18 21:36 adhesive AdvReac SKIN TURNS Verified 07/21/18 21:36 RED piperacillin sodium AdvReac Confusion Verified 07/21/18 21:36 [From Zosyn] tazobactam sodium AdvReac Confusion Verified 07/21/18 21:36 [From Zosyn] Review of Systems ROS Statement: Those systems with pertinent positive or pertinent negative responses have been documented in the HPI. ROS Other: All systems not noted in ROS Statement are negative. Past Medical History Past Medical History: Atrial Fibrillation, Heart Failure, CVA/TIA, GERD/Reflux, Hearing Disorder / Deafness, Hyperlipidemia, Hypertension, Memory Impairment, Myocardial Infarction (IA), Osteoarthritis (OA), Prostate Disorder, Respiratory Disorder, Thyroid Disorder Additional Past Medical History / Comment(s): stroke behind rt eye-poor vision, macular degeneration harris eyes, migraine & cluster headaches,, IA's x 2 ( age unknown), cardiomyopathy, hole in stomach from excedrin -it caused aspiration after which he was in an induced coma and on a ventilator for 9 days, sarcoidosis of lungs, abdominal and stomach pain, frequent diarrhea, several head injuries as a child, arthiritis bilateral knees and hips, multiple lipomas , kidney stones, enlarged prostate. Last Myocardial Infarction Date:: unknown History of Any Multi-Drug Resistant Organisms: MRSA Date of last positivie culture/infection: 08/15/09 MDRO Source:: LUNGS Past Surgical History: AICD, Bowel Resection, Heart Catheterization With Stent, Hernia Repair, Orthopedic Surgery, Pacemaker, Prostate Surgery, Tonsillectomy Additional Past Surgical History / Comment(s): 12/28/14 Lap jose fundoplasty with mesh and lap lysis of adhesions. Other SX: AICD 2008 with replacement 2013 (medtronic), 1995 bowel resection d/t perforation with colostomy with eventual reversal of colostomy, 2009-surgery for "hole in stomach", 2007 blephoplasty bilaterally, 2001 deviated septum, 2003 TURP, 1975 vasectomy, 2012 R rotator cuff, surgery on "head" due to injuries, numerous lipoma removals -4 from L leg, 05/2014, 08/2013 EGD for removal of dentist spray nozzle, 1955 [facility] surgery at [facility] , 1975 vasectomy, lithrotripsy, bilateral inquinal hernia repairs with R side done x3, cardiac caths with stents Past Anesthesia/Blood Transfusion Reactions: Postoperative Nausea & Vomiting ( PONV) Additional Past Anesthesia/Blood Transfusion Reaction / Comment(s): Pt has never recieved blood Date of Last Stent Placement:: 2007 Type of Cardiac Device: AICD Device Placement Date:: 08/2013 Medtronic Past Psychological History: Anxiety, Depression Smoking Status: Former smoker - Past Family History Brother(s) Family Medical History: Cancer Additional Family Medical History / Comment(s): Patient has 2 brothers that are both alive. One has history of prostate cancer. Father Family Medical History: Renal Disease, Respiratory Disorder Additional Family Medical History / Comment(s): Father at age 75 from renal failure. Mother Family Medical History: Coronary Artery Disease (CAD), Dementia Additional Family Medical History / Comment(s): Mother dies at age 94 from Alzheimer dementia. Sister(s) Family Medical History: Osteoarthritis (OA) Additional Family Medical History / Comment(s): Patient has one sister with osteoarthritis. General Exam - General Exam Comments Initial Comments: Constitutional: Awake alert Appears comfortable Head: Normocephalic atraumatic Eyes: no conjunctival injection No scleral icterus EOMI Neck: No JVD Supple Heart: Regular rate rhythm normal S1-S2 no murmurs Lungs: Clear to auscultation bilaterally No wheezing No rales, decreased breath sounds at the bases, tenderness to palpation along the right lateral chest wall Abdomen: Soft nondistended nontender, no CVA tenderness Extremities: Pitting edema up to the knees bilaterally which is baseline per the patient DP pulses intact Radial pulses intact Neuro: A&Ox3 No focal neurologic deficits Psych: Appropriate mood and affect Limitations: no limitations Course Vital Signs 07/21/18 07/21/18 20:56 21:54 Temperature 97.8 F Pulse Rate 71 Respiratory 18 18 Rate Blood Pressure 113/78 O2 Sat by Pulse 93 L Oximetry - Reevaluation(s) Reevaluation #1: 07/21/18 21:40 EKG is showing intrafibrillation with a rate of 105. There is a right bundle- branch block. No abnormal ST segment changes or T wave QTC is 576. Other intervals appear normal for a right bundle-branch block. No ectopy. Medical Decision Making - Medical Decision Making This is a 73-year-old male who presents emergency department for shortness of breath, pedal edema, and decreased urine output. Patient was found to have an elevated BNP. He was intermittently hypoxic at bedside on his 2 L nasal cannula. Pulse ox would range from 86-92% depending on what the patient was doing. X-ray was reviewed and does appear to have some worsening airspace disease in the bilateral bases which is suspicious for pulmonary edema. Especially given his elevated BNP. I did give her Bactrim dose of Lasix 40 mg IV. I do not feel the patient is able to go home given his fluid overload status. I elected admit him for CHF exacerbation and fluid overload. Dr. Mercado accepts the admission. - Lab Data Result diagrams: 07/21/18 21:40 07/21/18 21:40 Lab Results 07/21/18 07/21/18 07/21/18 Range/Units 21:40 21:40 21:40 WBC 8.3 (3.8-10.6) k/uL RBC 4.11 L (4.30-5.90) m/uL Hgb 13.1 (13.0-17.5) gm/dL Hct 41.7 (39.0-53.0) % MCV 101.5 H (80.0-100.0) fL MCH 32.0 (25.0-35.0) pg MCHC 31.5 (31.0-37.0) g/dL RDW 14.2 (11.5-15.5) % Plt Count 281 (150-450) k/uL Neutrophils % 72 % Lymphocytes % 13 % Monocytes % 11 % Eosinophils % 1 % Basophils % 1 % Neutrophils # 5.9 (1.3-7.7) k/uL Lymphocytes # 1.1 (1.0-4.8) k/uL Monocytes # 0.9 (0-1.0) k/uL Eosinophils # 0.1 (0-0.7) k/uL Basophils # 0.1 (0-0.2) k/uL Hypochromasia Slight Macrocytosis Slight PT (9.0-12.0) sec INR (<1.2) APTT (22.0-30.0) sec Sodium 139 (137-145) mmol/L Potassium 5.9 H (3.5-5.1) mmol/L Chloride 98 (98-107) mmol/L Carbon Dioxide 32 H (22-30) mmol/L Anion Gap 9 mmol/L BUN 40 H (9-20) mg/dL Creatinine 2.30 H (0.66-1.25) mg/dL Est GFR (CKD-EPI)AfAm 31 (>60 ml/min/1.73 sqM) Est GFR (CKD-EPI)NonAf 27 (>60 ml/min/1.73 sqM) Glucose 111 H (74-99) mg/dL Calcium 9.1 (8.4-10.2) mg/dL Magnesium 1.8 (1.6-2.3) mg/dL Total Bilirubin 2.1 H (0.2-1.3) mg/dL AST 47 (17-59) U/L ALT 59 (21-72) U/L Alkaline Phosphatase 70 (38-126) U/L CK-MB (CK-2) (0.0-2.4) ng/mL Troponin I (0.000-0.034) ng/mL NT-Pro-B Natriuret Pep pg/mL Total Protein 7.3 (6.3-8.2) g/dL Albumin 3.8 (3.5-5.0) g/dL Blood Type A Positive Blood Type Confirm Blood Type Recheck CABO Indicated Antibody Screen NEGATIVE Spec Expiration Date 07/24/2018233907/21/18 07/21/18 07/21/18 Range/Units 21:40 21:40 21:40 WBC (3.8-10.6) k/uL RBC (4.30-5.90) m/uL Hgb (13.0-17.5) gm/dL Hct (39.0-53.0) % MCV (80.0-100.0) fL MCH (25.0-35.0) pg MCHC (31.0-37.0) g/dL RDW (11.5-15.5) % Plt Count (150-450) k/uL Neutrophils % % Lymphocytes % % Monocytes % % Eosinophils % % Basophils % % Neutrophils # (1.3-7.7) k/uL Lymphocytes # (1.0-4.8) k/uL Monocytes # (0-1.0) k/uL Eosinophils # (0-0.7) k/uL Basophils # (0-0.2) k/uL Hypochromasia Macrocytosis PT 18.0 H (9.0-12.0) sec INR 1.8 H (<1.2) APTT 22.5 (22.0-30.0) sec Sodium (137-145) mmol/L Potassium (3.5-5.1) mmol/L Chloride (98-107) mmol/L Carbon Dioxide (22-30) mmol/L Anion Gap mmol/L BUN (9-20) mg/dL Creatinine (0.66-1.25) mg/dL Est GFR (CKD-EPI)AfAm (>60 ml/min/1.73 sqM) Est GFR (CKD-EPI)NonAf (>60 ml/min/1.73 sqM) Glucose (74-99) mg/dL Calcium (8.4-10.2) mg/dL Magnesium (1.6-2.3) mg/dL Total Bilirubin (0.2-1.3) mg/dL AST (17-59) U/L ALT (21-72) U/L Alkaline Phosphatase (38-126) U/L CK-MB (CK-2) 0.8 (0.0-2.4) ng/mL Troponin I <0.012 (0.000-0.034) ng/mL NT-Pro-B Natriuret Pep 50862 pg/mL Total Protein (6.3-8.2) g/dL Albumin (3.5-5.0) g/dL Blood Type Blood Type Confirm Blood Type Recheck Antibody Screen Spec Expiration Date 07/21/18 Range/Units 22:10 WBC (3.8-10.6) k/uL RBC (4.30-5.90) m/uL Hgb (13.0-17.5) gm/dL Hct (39.0-53.0) % MCV (80.0-100.0) fL MCH (25.0-35.0) pg MCHC (31.0-37.0) g/dL RDW (11.5-15.5) % Plt Count (150-450) k/uL Neutrophils % % Lymphocytes % % Monocytes % % Eosinophils % % Basophils % % Neutrophils # (1.3-7.7) k/uL Lymphocytes # (1.0-4.8) k/uL Monocytes # (0-1.0) k/uL Eosinophils # (0-0.7) k/uL Basophils # (0-0.2) k/uL Hypochromasia Macrocytosis PT (9.0-12.0) sec INR (<1.2) APTT (22.0-30.0) sec Sodium (137-145) mmol/L Potassium (3.5-5.1) mmol/L Chloride (98-107) mmol/L Carbon Dioxide (22-30) mmol/L Anion Gap mmol/L BUN (9-20) mg/dL Creatinine (0.66-1.25) mg/dL Est GFR (CKD-EPI)AfAm (>60 ml/min/1.73 sqM) Est GFR (CKD-EPI)NonAf (>60 ml/min/1.73 sqM) Glucose (74-99) mg/dL Calcium (8.4-10.2) mg/dL Magnesium (1.6-2.3) mg/dL Total Bilirubin (0.2-1.3) mg/dL AST (17-59) U/L ALT (21-72) U/L Alkaline Phosphatase (38-126) U/L CK-MB (CK-2) (0.0-2.4) ng/mL Troponin I (0.000-0.034) ng/mL NT-Pro-B Natriuret Pep pg/mL Total Protein (6.3-8.2) g/dL Albumin (3.5-5.0) g/dL Blood Type Blood Type Confirm A Positive Blood Type Recheck Antibody Screen Spec Expiration Date Disposition Clinical Impression: Acute on chronic systolic (congestive) heart failure, Fluid overload Disposition: ADMITTED IP TO THIS [facility] Condition: Stable Referrals: Merritt Patel MD [Primary Care Provider] - 1-2 days
[2018-07-21 22:11] LABS: Basophils # (A) 0.1 k/uL (0-0.2); Basophils % (A) 1 %; Eosinophils # (A) 0.1 k/uL (0-0.7); Eosinophils % (A) 1 %; HCT 41.7 % (39.0-53.0); HGB 13.1 gm/dL (13.0-17.5); Hypochromasia Slight; Lymphocytes # (A) 1.1 k/uL (1.0-4.8); Lymphocytes % (A) 13 %; MCHC 31.5 g/dL (31.0-37.0); MCV 101.5 fL (80.0-100.0); Macrocytosis Slight; Mean Platelet Volume 7.9; Monocytes # (A) 0.9 k/uL (0-1.0); Monocytes % (A) 11 %; Neutrophils # (A) 5.9 k/uL (1.3-7.7); Neutrophils % (A) 72 %; Platelet Count 281 k/uL (150-450); RBC 4.11 m/uL (4.30-5.90); RDW 14.2 % (11.5-15.5); WBC 8.3 k/uL (3.8-10.6)
[2018-07-21 22:26] LABS: Albumin 3.8 g/dL (3.5-5.0); Calcium 9.1 mg/dL (8.4-10.2); INR 1.8 (<1.2); Magnesium 1.8 mg/dL (1.6-2.3); Partial Thromboplastin Time 22.5 sec (22.0-30.0); Total Bilirubin 2.1 mg/dL (0.2-1.3); Total Protein 7.3 g/dL (6.3-8.2)
[2018-07-21 22:38] LABS: Potassium 5.9 mmol/L (3.5-5.1)
[2018-07-21 22:43] LABS: Creatine Kinase MB 0.8 ng/mL (0.0-2.4); Troponin I <0.012 ng/mL (0.000-0.034)
--- NOTE | 2018-07-21 23:33 | XR ---
EXAM: XR Chest, 2 Views CLINICAL HISTORY: ITS.REASON XR Reason: SOB TECHNIQUE: Frontal and lateral views of the chest. COMPARISON: 07/15/18 chest radiography FINDINGS: See Impression. IMPRESSION: No pleural effusions. Adjacent airspace disease at the lower lungs. Persisting enlarged cardiac silhouette. No pneumothorax. No other interval changes.
--- NOTE | 2018-07-22 | US ---
EXAM: US Retroperitoneal Complete, Renal CLINICAL HISTORY: ITS.REASON US Reason: Decreased Urination, Flank Pain TECHNIQUE: Real-time ultrasound of the retroperitoneum (complete) with image documentation. COMPARISON: No relevant prior studies available. FINDINGS: Right kidney: Echogenic parenchyma. No stones. No solid mass. No hydronephrosis. Left kidney: Echogenic parenchyma. No stones. No solid mass. No hydronephrosis. Bladder: Unremarkable as visualized. Pleural space: Suggestive of bilateral pleural effusions. IMPRESSION: No urolithiasis or hydronephrosis. No other findings to explain the clinical presentation. Echogenic renal parenchyma bilaterally, which suggests medical renal disease; correlate clinically.
[2018-07-22] MEDS ORDERED: FUROSEMIDE 10 MG/ML 4 ML VIAL IV STA (00:18)
[2018-07-22] MEDS ORDERED: NALOXONE 0.4 MG/ML 1 ML VIAL IV PRN (00:19)
[2018-07-22] MEDS ORDERED: ALBUTEROL NEBULIZED 2.5 MG/3 ML INHALATION PRN (04:32)
[2018-07-22] MEDS ORDERED: AFLIBERCEPT RIGHT EYE SCH (04:45)
[2018-07-22] MEDS ORDERED: [UNRECOGNIZED DRUG - OTHER] RIGHT EYE SCH (04:45)
[2018-07-22] MEDS: DICYCLOMINE 20 MG TAB PO PRN ×3 (04:58→21:29)
[2018-07-22] MEDS: oxyCODONE-APAP 7.5-325MG 1 EACH TAB PO PRN ×2 (04:58→21:13)
[2018-07-22] MEDS: LEVOTHYROXINE 25 MCG TAB PO SCH (06:54)
[2018-07-22 08:36] LABS: Appearance,Urine Clear (Clear); Bilirubin,Urine Negative (Negative); Blood,Urine Negative (Negative); Color,Urine Yellow; Glucose,Urine (UA) Negative (Negative); Ketones,Urine Negative (Negative); Leukocyte Esterase,Urine Negative (Negative); Nitrite,Urine Negative (Negative); PH, Urine 6.5 (5.0-8.0); Protein,Urine Negative (Negative); Specific Gravity,Urine 1.009 (1.001-1.035); Urobilinogen,Urine <2.0 mg/dL (<2.0)
[2018-07-22] MEDS: AMIODARONE 200 MG TAB PO SCH (08:44)
[2018-07-22] MEDS: ALLOPURINOL 100 MG TAB PO SCH (08:44)
[2018-07-22] MEDS: MIDODRINE 5 MG TAB PO SCH ×3 (08:44→21:12)
[2018-07-22] MEDS: CITALOPRAM HYDROBROMIDE 20 MG TAB PO SCH ×2 (08:44→21:12)
[2018-07-22] MEDS: CARVEDILOL 3.125 MG TAB PO SCH ×2 (08:44→16:29)
[2018-07-22] MEDS: HYDROCORTISONE 10 MG TAB PO SCH ×2 (08:44→21:12)
[2018-07-22] MEDS: APIXABAN 2.5 MG TABLET PO SCH ×2 (08:44→21:12)
[2018-07-22] MEDS ORDERED: FUROSEMIDE 10 MG/ML 4 ML VIAL IV SCH (09:00)
[2018-07-22] MEDS ORDERED: POTASSIUM CHLORIDE ER 20 MEQ TAB.ER PO SCH (09:00)
[2018-07-22] MEDS ORDERED: FINASTERIDE 5 MG TAB PO SCH (09:00)
[2018-07-22] MEDS ORDERED: TAMSULOSIN 0.4 MG CAP.ER.24H PO SCH (09:00)
--- NOTE | 2018-07-22 12:57 | P.HPIM ---
History of Present Illness H&P Date: 07/22/18 Chief Complaint: Difficulty breathing This is a 73-year-old male one of Dr. Patel with a previous medical history significant for hypertension and hypertensive cardiovascular disease, hyperlipidemia, memory impairment, osteoarthritis, history of chronic systolic h eart failure, atrial fibrillation, cardiomyopathy with prior AICD implantation, history of hiatal hernia status post Jose fundoplication, recurrent depression. Patient was recently hospitalized and discharged on July 19 after he was treated for acute systolic heart failure, right chest pain from rib fractures. Patient presented with hypercoagulopathy and was transitioned from Coumadin to eliquis. Patient states that yesterday he started having severe shortness of breath and became very scared and panicky and as he could not catch his breath. He denies any increased salt intake. He has had no increased edema. He did relate to the ER staff that he was having difficulty with urination. Patient was afebrile, heart rate in the 70s. His EKG was atrial fibrillation at a rate of 105 with right bundle branch block. No acute changes. Pulse ox is 93% on room air. Potassium 5.9, BUN 14 creatinine 2.3. At the time of discharge creatinine was 2.3. Sugar 111, hemoglobin 13.1. ProBNP 27,100, troponin negative. Patient was given a dose of Lasix 40 mg IV and admitted to hospital to the [facility] floor. Patient also brought up that he has been quite depressed. He is on citalopram 20 mg twice daily which was apparently recently decreased in half. He does not want to make any changes to this. Patient is also on clonazepam at bedtime only. Review of Systems All systems: negative Constitutional: Denies chills, Denies fatigue, Denies fever, Denies poor appetite, Denies weakness Eyes: denies blurred vision, denies pain Ears, nose, mouth and throat: Denies dysphagia, Denies headache, Denies sore throat, Denies vertigo Cardiovascular: Reports decreased exercise tolerance, Reports dyspnea on exertion, Reports shortness of breath, Denies chest pain, Denies edema, Denies leg edema, Denies lightheadedness, Denies orthopnea, Denies palpitations, Denies syncope Respiratory: Reports dyspnea, Denies cough, Denies cough with sputum, Denies excessive sputum, Denies hemoptysis, Denies home oxygen, Denies wheezing Gastrointestinal: Denies abdominal pain, Denies diarrhea, Denies nausea, Denies vomiting Genitourinary: Reports urinary hesitancy Musculoskeletal: Denies frequent falls, Denies gait dysfunction, Denies muscle weakness, Denies myalgias Integumentary: Denies pruritus, Denies rash, Denies wounds Neurological: Denies aphasia, Denies change in mentation, Denies confusion, Denies numbness, Denies seizures, Denies weakness Psychiatric: Reports anxiety, Denies depression Endocrine: Denies fatigue, Denies weight change Past Medical History Past Medical History: Atrial Fibrillation, Heart Failure, CVA/TIA, GERD/Reflux, Hearing Disorder / Deafness, Hyperlipidemia, Hypertension, Memory Impairment, Myocardial Infarction ([place]), Osteoarthritis (OA), Prostate Disorder, Respiratory Disorder, Thyroid Disorder Additional Past Medical History / Comment(s): stroke behind rt eye-poor vision, macular degeneration harris eyes, migraine & cluster headaches,, WI's x 2 ( age unknown), cardiomyopathy, hole in stomach from excedrin -it caused aspiration after which he was in an induced coma and on a ventilator for 9 days, sarcoidosis of lungs, abdominal and stomach pain, frequent diarrhea, several head injuries as a child, arthiritis bilateral knees and hips, multiple lipomas, kidney stones, enlarged prostate. Last Myocardial Infarction Date:: unknown History of Any Multi-Drug Resistant Organisms: MRSA Date of last positivie culture/infection: 08/15/09 MDRO Source:: LUNGS Past Surgical History: AICD, Bowel Resection, Heart Catheterization With Stent, Hernia Repair, Orthopedic Surgery, Pacemaker, Prostate Surgery, Tonsillectomy Additional Past Surgical History / Comment(s): 12/28/14 Lap jose fundoplasty with mesh and lap lysis of adhesions. Other SX: AICD 2008 with replacement 08/2013 (medtronic), 1995 bowel resection d/t perforation with colostomy with eventual reversal of colostomy, 2009-surgery for "hole in stomach", 2007 blephoplasty bilaterally, 2001 deviated septum, 2003 TURP, 1975 vasectomy, 02/2013 R rotator cuff, surgery on "head" due to injuries, numerous lipoma removals-4 from L leg, 05/2014, 08/2013 EGD for removal of dentist spray nozzle, 1955 Aguilar surgery at [facility], 1975 vasectomy, lithrotripsy, bilateral inquinal hernia repairs with R side done x3, cardiac caths with stents Past Anesthesia/Blood Transfusion Reactions: Postoperative Nausea & Vomiting (PONV) Additional Past Anesthesia/Blood Transfusion Reaction / Comment(s): Pt has never recieved blood Date of Last Stent Placement:: 2007 Type of Cardiac Device: AICD Device Placement Date:: 08/2013 Medtronic Past Psychological History: Anxiety, Depression Additional Psychological History / Comment(s): Pt resides with his spouse of 48yrs. He is independent. He uses no assistive devices or home care. He knows how to drive but lately has'nt d/t medical problems- drives . He has depression due mostly to his multiple medical problems.- no thoughts of wanting to harm self Smoking Status: Former smoker Past Alcohol Use History: Heavy Additional Past Alcohol Use History / Comment(s): Pt started smoking about 1951 and quit in 1981. a pack would last 1.5 days. quit drinking 1969 Past Drug Use History: None Reported - Past Family History Brother(s) Family Medical History: Cancer Additional Family Medical History / Comment(s): Patient has 2 brothers that are both alive. One has history of prostate cancer. Father Family Medical History: Renal Disease, Respiratory Disorder Additional Family Medical History / Comment(s): Father at age 75 from renal failure. Mother Family Medical History: Coronary Artery Disease (CAD), Dementia Additional Family Medical History / Comment(s): Mother at age 94 from Alzheimer dementia. Sister(s) Family Medical History: Osteoarthritis (OA) Additional Family Medical History / Comment(s): Patient has one sister with osteoarthritis. Medications and Allergies Home Medications Medication Instructions Recorded Confirmed Type Dicyclomine [Bentyl] 20 mg PO AC-TID PRN 10/27/13 07/21/18 History Lovastatin [Mevacor] 40 mg PO HS 10/27/13 07/21/18 History Citalopram Hydrobromide 20 mg PO BID 03/27/16 07/21/18 History [Citalopram HBr] Levothyroxine Sodium [Synthroid] 25 mcg PO DAILY 03/27/16 07/21/18 History Hydrocortisone [Cortef] 10 mg PO BID #0 04/08/18 07/21/18 Rx Sacubitril/Valsartan [Entresto 24 1 tab PO HS 04/24/18 07/21/18 History mg-26 mg Tablet] Carvedilol [Coreg] 3.125 mg PO BID 05/06/18 07/21/18 History clonazePAM 0.25 mg PO HS 05/06/18 07/21/18 History Midodrine HCl [ProAmatine] 10 mg PO TID #0 05/10/18 07/21/18 Rx Albuterol Sulfate [Proair Hfa] 2 puff INHALATION RT-TID PRN 07/15/18 07/21/18 History Allopurinol [Zyloprim] 100 mg PO DAILY 07/15/18 07/21/18 History Amiodarone [Cordarone] 200 mg PO DAILY 07/15/18 07/21/18 History Eylea 2mg/O.05ml 1 injection RIGHT EYE Q42D 07/15/18 07/21/18 History Finasteride [Proscar] 5 mg PO Q48H 07/15/18 07/21/18 History Tamsulosin HCl [Flomax] 0.4 mg PO Q48H 07/15/18 07/21/18 History Apixaban [Eliquis] 2.5 mg PO BID #60 tab 07/19/18 07/21/18 Rx oxyCODONE-APAP 7.5-325MG [Percocet 1 tab PO Q6HR PRN 07/22/18 07/22/18 History 7.5-325 mg] Furosemide [Lasix] 80 mg PO BID@0900,1600 #60 tab 07/23/18 Rx Allergies Allergy/AdvReac Type Severity Reaction Status Date / Time Iodinated Contrast- Oral and Allergy Rash/Hives Verified 07/21/18 21:36 IV Dye [Iodinated Contrast Media - IV Dye] nitroglycerin Allergy passed out Verified 07/21/18 21:36 adhesive AdvReac SKIN TURNS Verified 07/21/18 21:36 RED piperacillin sodium AdvReac Confusion Verified 07/21/18 21:36 [From Zosyn] tazobactam sodium AdvReac Confusion Verified 07/21/18 21:36 [From Zosyn] Physical Exam Vitals: Vital Signs Temp Pulse Pulse Resp BP BP Pulse Ox 07/22/18 07:09 98.6 F 105 H 20 120/86 91 L 03/06/19 02:14 79 20 95 07/22/18 01:22 97.8 F 110 H 18 116/79 92 L 07/22/18 00:23 98.0 F 96 18 113/88 96 07/21/18 21:54 18 07/21/18 20:56 97.8 F 71 18 113/78 93 L Intake and Output 07/21/18 07/22/18 07/22/18 22:59 06:59 14:59 Output Total 400 175 Balance -400 -175 Output: Urine 400 175 Post Void Residual 0 Other: Voiding Method Urinal # Bowel Movements 0 Weight 68.039 kg 71.5 kg General appearance: No acute distress, thin, appears anxious - EENT Eyes: no PERRLA, no ptosis ENT: normal oropharynx Ears: bilateral: normal - Neck Carotids: bilateral: upstroke delayed - Respiratory Respiratory: bilateral: diminished, negative: dullness, rales, wheezing, pro longed expiration - Cardiovascular Rhythm: regular Heart sounds: normal: S1, S2 Abnormal Heart Sounds: systolic murmur, S3 Gallop (ICD in the left upper precordium.) - Gastrointestinal General gastrointestinal: normal bowel sounds, soft, tenderness, no umbilical hernia, no ventral hernia - Integumentary Integumentary: normal, normal turgor - Psychiatric Psychiatric: A&O x's 3, appropriate affect, intact judgment & insight Results CBC & Chem 7: 07/21/18 21:40 07/23/18 07:35 Labs: Abnormal Lab Results - Last 24 Hours (Table) 07/21/18 07/21/18 07/21/18 Range/Units 21:40 21:40 21:40 RBC 4.11 L (4.30-5.90) m/uL MCV 101.5 H (80.0-100.0) fL PT 18.0 H (9.0-12.0) sec INR 1.8 H (<1.2) Potassium 5.9 H (3.5-5.1) mmol/L Carbon Dioxide 32 H (22-30) mmol/L BUN 40 H (9-20) mg/dL Creatinine 2.30 H (0.66-1.25) mg/dL Glucose 111 H (74-99) mg/dL Total Bilirubin 2.1 H (0.2-1.3) mg/dL Thrombosis Risk Factor Assmnt - Choose All That Apply Any of the Below Risk Factors Present?: Yes Each Factor Represents 1 point: Abnormal pulmonary function (COPD), Heart failure (<1month), Swollen legs (current) Other Risk Factors: Yes Each Risk Factor Represents 3 Points: Age 75 years or older Other congenital or acquired thrombophilia - If yes, enter type in comment: No Thrombosis Risk Factor Assessment Total Risk Factor Score: 6 Thrombosis Risk Factor Assessment Level: High Risk Assessment and Plan Plan: 1. Acute on chronic systolic heart failure and nonischemic cardiomyopathy and probable A. fib with RVR. IV Lasix will be changed to oral Lasix 80 mg twice daily. Continue Entresto one at bedtime, Coreg. Cardiology consult requested. I&O and daily weights 2. Severe nonischemic cardiomyopathy . Patient with severe encephalopathy is not safe to use any oral medication at this point in time subsequently will be discontinued. 3. Chronic atrial fibrillation with possible RVR. Patient recently started on eliquis which will be continued, continue amiodarone 200 mg daily, Coreg 3.125 mg twice daily. 4. Acute kidney injury with chronic kidney disease stage III secondary to nep hrosclerosis and cardiorenal syndrome. 5. Hypertension and hypertensive cardiovascular disease. Continue Coreg, amiodarone and Entresto. 6. Hyperlipidemia. Continue Lipitor. 7. Recurrent depression and generalized anxiety disorder. Continue citalopram 20 g twice daily and clonazepam 0.25 mg at bedtime. 8. Adrenal insufficiency. Continue Cortef 10 mg twice daily. 9. Gastroesophageal reflux disease and hiatal hernia status post Jose fundoplication. 10. Benign prostatic hypertrophy. Monitor for urinary retention continue Flomax or 0.4 mg every 48 hours. 11. History of pulmonary sarcoidosis stable at this point in time. 12. DVT prophylaxis. Continue eliquis. 13. GI prophylaxis. Continue with PPI. CODE STATUS: DO NOT RESUSCITATE per patient wishes Discharge plan: Home Impression and plan of care have been directed as dictated by the signing physician. Luma Mancera nurse practitioner acting as scribe for signing physician.
[2018-07-22 13:11] VITALS: BMI 21.9
--- NOTE | 2018-07-22 14:19 | P.CRDCN ---
History of Present Illness History of present illness: This is a pleasant 73-year-old male past medical history significant for chronic persistent atrial fibrillation on long-term anticoagulation, nonischemic cardiomyopathy, chronic systolic congestive heart failure status post single-chamber ICD, hypertension, dyslipidemia, valvular heart disease, paroxysmal ventricular fibrillation on chronic kidney disease. He follows in the office with Dr. Cárdenas. He underwent cardiac catheterization 2007 revealing normal coronary arteries and EF 25%. We presented to the hospital with symptoms of shortness of breath. He was discharge home on Friday feeling good per the patient. He was admitted that time for an acute exacerbation of systolic heart failure and supratherapeutic INR. He was discharge home on eliquis rather then coumadin and lasix dose of 40 mg BID which was increased from 20 mg daily he was on prior. He states he felt good initially for about 24 hours. Starting Friday night he started feeling again short of breath. He states he would walk around the house doing his typical routine and he would feel shortness of breath with exertion. He also continues to feel pain in the left thoracic region with deep inspiration or movement of his torso. He denies PND, orhopnea or cough. He denies dizziness, nausea, vomiting or diaphoresis. He also complains of urinary retention since being discharged. US of the abdomen and bladder reveals no urolithiasis or hydronephrosis with echogenic renal parenchyma suggestive of EKG reveals right bundle branch block pattern with underlying atrial fibrillation. Chest x-ray is negative for an acute cardiopulmonary process with no evidence of heart failure, no pleural effusions and no pneumonia. Laboratory data reviewed, WBC 8.3, hemoglobin 13.1, platelets 281, INR 1.8, sodium 139, potassium 5.9, creatinine 2.3, magnesium 1.8, cardiac enzymes negative 2, NTproBNP 27,100. Current cardiac medications include Eliquis 2.5 mg twice a day, lovastatin 40 mg daily, Lasix 40 mg daily, potassium supplementation, amiodarone 200 mg daily , carvedilol 3.125 mg twice a day, midodrine 10 mg TID, entresto 24/26 mg at HS. Most recent echocardiogram obtained 04/2018 reveals severely impaired LV systolic function 20-25%, severely dilated LA, severe MR with non-mobile posterior leaflet and moderate TR. At the time of my exam: CONSTITUTIONAL: Denies fever. Denies chills. EYES: Denies blurred vision. Denies vision changes. Denies eye pain. EARS, NOSE, MOUTH & THROAT: Denies headache. Denies sore throat. Denies ear pain. CARDIOVASCULAR: Complains of pleuritic rib pain on the right. Denies shortness of breath. Denies orthopnea. Denies PND. Denies palpitations. RESPIRATORY: Denies cough. GASTROINTESTINAL: Denies abdominal pain. Denies diarrhea. Denies constipation. Denies nausea. Denies vomiting. MUSCULOSKELETAL: Denies myalgias. INTEGUMENTARY: Denies pruitis. Denies rash. NEUROLOGIC: Denies numbness. Denies tingling. Denies weakness. PSYCHIATRIC: Denies anxiety. Denies depression. ENDOCRINE: Denies fatigue. Denies weight change. Denies polydipsia. Denies polyurina. GENITOURINARY: Denies burning, hematuria or urgency with micturation. HEMATOLOGIC: Denies history of anemia. Denies bleeding. Blood pressure 120/86 heart rate 105 afebrile and maintaining oxygen saturation on nasal cannula GENERAL: This is a 73-year-old male in no apparent distress at the time of my examination. HEENT: Head is atraumatic, normocephalic. Pupils are equal, round. Sclerae anicteric. Conjunctivae are clear. Mucous membranes of the mouth are moist. Neck is supple. There is no jugular venous distention. No carotid bruit is heard. LUNGS: Bibasilar rales, no wheezes or rhonchi. Mild rib thoracic discomfort on palpitation, worse anteriorly. HEART: Irregular rate and rhythm with systolic ejection murmur at the left sternal border and apex, no rubs or gallops. S1 and S2 heard. ABDOMEN: Soft, nontender. Bowel sounds are heard. No organomegaly noted. EXTREMITIES: No evidence of peripheral edema and no calf tenderness noted. VASCULAR: Radial and dorsalis pedis pulses palpated, no evidence of clubbing. NEUROLOGIC: Patient is awake, alert and oriented x3. ASSESSMENT Acute on chronic systolic heart failure, mild exacerbation. NTproBNP is chronically elevated. Chronic persistent atrial fibrillation on longterm anti-coagulation Non-ischemic cardiomyopathy with AICD in place, single chamber Hypertension Dyslipidemia Chronic kidney disease, GFR 27 History of ventricular fibrillation on amiodarone Recent fall with rib fractures PLAN Continue current medical regimen. Follow kidney function and electrolytes tomorrow morning. Document intake and output along with daily weights. He appears to have improved significantly from IV lasix and expect he can be transitioned to PO tomorrow. Further recommendations to follow, thank you kindly for this consultation. Nurse Practitioner note has been reviewed, I agree with a documented findings and plan of care. Patient was seen and examined. Past Medical History Past Medical History: Atrial Fibrillation, Heart Failure, CVA/TIA, GERD/Reflux, Hearing Disorder / Deafness, Hyperlipidemia, Hypertension, Memory Impairment, Myocardial Infarction ([place]), Osteoarthritis (OA), Prostate Disorder, Respiratory Disorder, Thyroid Disorder Additional Past Medical History / Comment(s): stroke behind rt eye-poor vision, macular degeneration harris eyes, migraine & cluster headaches,, KS's x 2 ( age unknown), cardiomyopathy, hole in stomach from excedrin -it caused aspiration after which he was in an induced coma and on a ventilator for 9 days, sarcoidosis of lungs, abdominal and stomach pain, frequent diarrhea, several head injuries as a child, arthiritis bilateral knees and hips, multiple lipomas , kidney stones, enlarged prostate. Last Myocardial Infarction Date:: unknown History of Any Multi-Drug Resistant Organisms: MRSA Date of last positivie culture/infection: 08/15/09 MDRO Source:: LUNGS Past Surgical History: AICD, Bowel Resection, Heart Catheterization With Stent, Hernia Repair, Orthopedic Surgery, Pacemaker, Prostate Surgery, Tonsillectomy Additional Past Surgical History / Comment(s): 12/28/14 Lap jose fundoplasty with mesh and lap lysis of adhesions. Other SX: AICD 2008 with replacement 2013 (medtronic), 1995 bowel resection d/t perforation with colostomy with eventual reversal of colostomy, 2009-surgery for "hole in stomach", 2007 blephoplasty bilaterally, 2001 deviated septum, 2003 TURP, 1975 vasectomy, 2012 R rotator cuff, surgery on "head" due to injuries, numerous lipoma removals -4 from L leg, 05/2014, 08/2013 EGD for removal of dentist spray nozzle, 1955 Aguilar surgery at [facility], 1975 vasectomy, lithrotripsy, bilateral inquinal hernia repairs with R side done x3, cardiac caths with stents Past Anesthesia/Blood Transfusion Reactions: Postoperative Nausea & Vomiting ( PONV) Additional Past Anesthesia/Blood Transfusion Reaction / Comment(s): Pt has never recieved blood Date of Last Stent Placement:: 2007 Type of Cardiac Device: AICD Device Placement Date:: 08/2013 Medtronic Past Psychological History: Anxiety, Depression Additional Psychological History / Comment(s): Pt resides with his spouse of 48yrs. He is independent. He uses no assistive devices or home care. He knows how to drive but lately has'nt d/t medical problems- drives . He has depression due mostly to his multiple medical problems.- no thoughts of wanting to harm self Smoking Status: Former smoker Past Alcohol Use History: Heavy Additional Past Alcohol Use History / Comment(s): Pt started smoking about 1951 and quit in 1981. a pack would last 1.5 days. quit drinking 1969 Past Drug Use History: None Reported - Past Family History Brother(s) Family Medical History: Cancer Additional Family Medical History / Comment(s): Patient has 2 brothers that are both alive. One has history of prostate cancer. Father Family Medical History: Renal Disease, Respiratory Disorder Additional Family Medical History / Comment(s): Father at age 75 from renal failure. Mother Family Medical History: Coronary Artery Disease (CAD), Dementia Additional Family Medical History / Comment(s): Mother dies at age 94 from Alzheimer dementia. Sister(s) Family Medical History: Osteoarthritis (OA) Additional Family Medical History / Comment(s): Patient has one sister with osteoarthritis. Medications and Allergies Home Medications Medication Instructions Recorded Confirmed Type Dicyclomine [Bentyl] 20 mg PO AC-TID PRN 10/27/13 07/21/18 History Lovastatin [Mevacor] 40 mg PO HS 10/27/13 07/21/18 History Citalopram Hydrobromide 20 mg PO BID 03/27/16 07/21/18 History [Citalopram HBr] Levothyroxine Sodium [Synthroid] 25 mcg PO DAILY 03/27/16 07/21/18 History Hydrocortisone [Cortef] 10 mg PO BID #0 04/08/18 07/21/18 Rx Sacubitril/Valsartan [Entresto 24 1 tab PO HS 04/24/18 07/21/18 History mg-26 mg Tablet] Carvedilol [Coreg] 3.125 mg PO BID 05/06/18 07/21/18 History clonazePAM 0.25 mg PO HS 05/06/18 07/21/18 History Midodrine HCl [ProAmatine] 10 mg PO TID #0 05/10/18 07/21/18 Rx Albuterol Sulfate [Proair Hfa] 2 puff INHALATION RT-TID PRN 07/15/18 07/21/18 History Allopurinol [Zyloprim] 100 mg PO DAILY 07/15/18 07/21/18 History Amiodarone [Cordarone] 200 mg PO DAILY 07/15/18 07/21/18 History Eylea 2mg/O.05ml 1 injection RIGHT EYE Q42D 07/15/18 07/21/18 History Finasteride [Proscar] 5 mg PO Q48H 07/15/18 07/21/18 History Tamsulosin HCl [Flomax] 0.4 mg PO Q48H 07/15/18 07/21/18 History Apixaban [Eliquis] 2.5 mg PO BID #60 tab 07/19/18 07/21/18 Rx Furosemide [Lasix] 40 mg PO DAILY 07/21/18 07/21/18 History oxyCODONE-APAP 7.5-325MG [Percocet 1 tab PO Q6HR PRN 07/22/18 07/22/18 History 7.5-325 mg] Allergies Allergy/AdvReac Type Severity Reaction Status Date / Time Iodinated Contrast- Oral and Allergy Rash/Hives Verified 07/21/18 21:36 IV Dye [Iodinated Contrast Media - IV Dye] nitroglycerin Allergy passed out Verified 07/21/18 21:36 adhesive AdvReac SKIN TURNS Verified 07/21/18 21:36 RED piperacillin sodium AdvReac Confusion Verified 07/21/18 21:36 [From Zosyn] tazobactam sodium AdvReac Confusion Verified 07/21/18 21:36 [From Zosyn] Physical Exam Vitals: Vital Signs Temp Pulse Pulse Resp BP BP Pulse Ox 07/22/18 07:09 98.6 F 105 H 20 120/86 91 L 07/22/18 02:14 79 20 95 07/22/18 01:22 97.8 F 110 H 18 116/79 92 L 07/22/18 00:23 98.0 F 96 18 113/88 96 07/21/18 21:54 18 07/21/18 20:56 97.8 F 71 18 113/78 93 L Intake and Output 07/21/18 07/22/18 07/22/18 22:59 06:59 14:59 Output Total 400 175 Balance -400 -175 Output: Urine 400 175 Post Void Residual 0 Other: Voiding Method Urinal # Bowel Movements 0 Weight 68.039 kg 71.5 kg Results 07/21/18 21:40 07/21/18 21:40 Cardiac Enzymes 07/21/18 07/21/18 07/22/18 Range/Units 21:40 21:40 08:10 AST 47 (17-59) U/L CK-MB (CK-2) 0.8 (0.0-2.4) ng/mL Troponin I <0.012 0.016 (0.000-0.034) ng/mL Coagulation 07/21/18 Range/Units 21:40 PT 18.0 H (9.0-12.0) sec APTT 22.5 (22.0-30.0) sec CBC 07/21/18 Range/Units 21:40 WBC 8.3 (3.8-10.6) k/uL RBC 4.11 L (4.30-5.90) m/uL Hgb 13.1 (13.0-17.5) gm/dL Hct 41.7 (39.0-53.0) % Plt Count 281 (150-450) k/uL Comprehensive Metabolic Panel 07/21/18 Range/Units 21:40 Sodium 139 (137-145) mmol/L Potassium 5.9 H (3.5-5.1) mmol/L Chloride 98 (98-107) mmol/L Carbon Dioxide 32 H (22-30) mmol/L BUN 40 H (9-20) mg/dL Creatinine 2.30 H (0.66-1.25) mg/dL Glucose 111 H (74-99) mg/dL Calcium 9.1 (8.4-10.2) mg/dL AST 47 (17-59) U/L ALT 59 (21-72) U/L Alkaline Phosphatase 70 (38-126) U/L Total Protein 7.3 (6.3-8.2) g/dL Albumin 3.8 (3.5-5.0) g/dL Current Medications Generic Name Dose Route Start Last Admin Trade Name Freq PRN Reason Stop Dose Admin Albuterol Sulfate 2.5 mg 07/22/18 04:32 Ventolin Nebulized INHALATION RT-TID PRN Shortness Of Breath Allopurinol 100 mg 07/22/18 09:00 07/22/18 08:44 Zyloprim PO 100 mg DAILY RADHA Administration Amiodarone HCl 200 mg 07/22/18 09:00 07/22/18 08:44 Cordarone PO 200 mg DAILY RADHA Administration Apixaban 2.5 mg 07/22/18 09:00 07/22/18 08:44 Eliquis PO 2.5 mg BID RADHA Administration Atorvastatin Calcium 10 mg 07/22/18 21:00 Lipitor PO HS RADHA Carvedilol 3.125 mg 07/22/18 07:30 07/22/18 08:44 Coreg PO 3.125 mg BID-W/MEALS RADHA Administration Citalopram Hydrobromide 20 mg 07/22/18 09:00 07/22/18 08:44 Celexa PO 20 mg BID RADHA Administration Clonazepam 0.25 mg 07/22/18 21:00 Klonopin PO HS RADHA Dicyclomine HCl 20 mg 07/22/18 07:30 07/22/18 04:58 Bentyl PO 20 mg AC-TID PRN Administration STOMACH Finasteride 5 mg 07/22/18 09:00 07/22/18 08:44 Proscar PO 5 mg Q48H RADHA Administration Furosemide 40 mg 07/22/18 09:00 07/22/18 08:43 Lasix IV 40 mg Q12HR RADHA Administration Hydrocortisone 10 mg 07/22/18 09:00 07/22/18 08:44 Cortef PO 10 mg BID RADHA Administration Levothyroxine Sodium 25 mcg 07/22/18 06:30 07/22/18 06:54 Synthroid PO 25 mcg DAILY@0630 RADHA Administration Midodrine 10 mg 07/22/18 09:00 07/22/18 08:44 Proamatine PO 10 mg TID RADHA Administration Naloxone HCl 0.2 mg 07/22/18 00:19 Narcan IV Q2M PRN Opioid Reversal Oxycodone/Acetaminophen 1 each 07/22/18 04:32 07/22/18 04:58 Percocet 7.5-325 PO 1 each Q6HR PRN Administration pain Potassium Chloride 20 meq 07/22/18 09:00 07/22/18 08:45 K-Dur 20 PO Not Given DAILY RADHA Sacubitril/Valsartan 1 each 07/22/18 21:00 Entresto 24 Mg-26 Mg Tablet PO HS RADHA Tamsulosin HCl 0.4 mg 07/22/18 09:00 07/22/18 08:43 Flomax PO 0.4 mg Q48H RADHA Administration Intake and Output 07/21/18 07/22/18 07/22/18 22:59 06:59 14:59 Output Total 400 175 Balance -400 -175 Output: Urine 400 175 Post Void Residual 0 Other: Voiding Method Urinal # Bowel Movements 0 Weight 68.039 kg 71.5 kg 07/21/18 21:40 07/21/18 21:40
[2018-07-22] MEDS: FUROSEMIDE 80 MG TAB PO SCH (16:29)
[2018-07-22] MEDS ORDERED: SACUBITRIL/VALSARTAN 24 MG-26 MG TABLET PO SCH (21:00)
[2018-07-22] MEDS ORDERED: clonazePAM 0.5 MG TAB PO SCH (21:00)
[2018-07-22] MEDS ORDERED: ATORVASTATIN 10 MG TAB PO SCH (21:00)
[2018-07-22 22:51] VITALS: RESP 22
[2018-07-23 06:36] VITALS: BP 109/78; PULSE 68; TEMP 97.4
[2018-07-23] MEDS: LEVOTHYROXINE 25 MCG TAB PO SCH (06:37)
[2018-07-23] MEDS: CITALOPRAM HYDROBROMIDE 20 MG TAB PO SCH (07:58)
[2018-07-23] MEDS: APIXABAN 2.5 MG TABLET PO SCH (07:58)
[2018-07-23] MEDS: ALLOPURINOL 100 MG TAB PO SCH (07:58)
[2018-07-23] MEDS: FUROSEMIDE 80 MG TAB PO SCH (07:58)
[2018-07-23] MEDS: MIDODRINE 5 MG TAB PO SCH (07:58)
[2018-07-23] MEDS: CARVEDILOL 3.125 MG TAB PO SCH (07:58)
[2018-07-23] MEDS: AMIODARONE 200 MG TAB PO SCH (07:58)
[2018-07-23] MEDS: HYDROCORTISONE 10 MG TAB PO SCH (07:59)
[2018-07-23] MEDS: oxyCODONE-APAP 7.5-325MG 1 EACH TAB PO PRN (08:04)
[2018-07-23] MEDS: DICYCLOMINE 20 MG TAB PO PRN (08:04)
[2018-07-23 08:08] LABS: Calcium 8.7 mg/dL (8.4-10.2); Potassium 4.6 mmol/L (3.5-5.1)
--- NOTE | 2018-07-23 12:45 | P.DS ---
Providers Date of admission: 07/22/18 00:20 Expected date of discharge: 07/23/18 Attending physician: Brennon Mercado Consults: 07/22/18 00:19 Consult Physician Routine Consulting Provider: [facility] Consult Reason/Comments: CHF Do you want consulting provider notified?: Yes, Notify in am Primary care physician: Merritt Patel [facility] Course: This is a 73-year-old male one of Dr. Patel with a previous medical history significant for hypertension and hypertensive cardiovascular disease, hyperlipidemia, memory impairment, osteoarthritis, history of chronic systolic heart failure, atrial fibrillation, cardiomyopathy with prior AICD implantation, history of hiatal hernia status post Swapnil fundoplication, recurrent depression. Patient was recently hospitalized and discharged on July 19 after he was treated for acute systolic heart failure, right chest pain from rib fractures. Patient presented with hypercoagulopathy and was transitioned from Coumadin to eliquis. Patient states that yesterday he started having severe shortness of breath and became very scared and panicky and as he could not catch his breath. He denies any increased salt intake. He has had no increased edema. He did relate to the ER staff that he was having difficulty with urination. Patient was afebrile, heart rate in the 70s. His EKG was atrial fibrillation at a rate of 105 with right bundle branch block. No acute changes. Pulse ox is 93% on room air. Potassium 5.9, BUN 14 creatinine 2.3. At the time of discharge creatinine was 2.3. Sugar 111, hemoglobin 13.1. ProBNP 27,100, troponin negative. Patient was given a dose of Lasix 40 mg IV and admitted to hospital to the [facility] floor. Patient also brought up that he has been quite depressed. He is on citalopram 20 mg twice daily which was apparently recently decreased in half. He does not want to make any changes to this. Patient is also on clonazepam at bedtime only. 07/23: Patient's breathing status is stable today. He is anxious to be discharged home. He has been seen by cardiology and on no new medications at been added. He has been afebrile, pulse ox 92% on 3 L nasal cannula, heart rate running between 60 and 98, blood pressure 109/78. Repeat potassium 4.6, CO2 35, BUN 44 and creatinine 2.68. Patient will be discharged on Lasix at 80 mg in the morning and 40 mg in the afternoon. Patient will be discharged home today in stable condition. Discharge diagnoses: 1. Acute on chronic systolic heart failure and nonischemic cardiomyopathy and probable A. fib with RVR. 2. Severe nonischemic cardiomyopathy. 3. Chronic atrial fibrillation with possible RVR. 4. Acute kidney injury with chronic kidney disease stage III secondary to nephrosclerosis and cardiorenal syndrome. 5. Hypertension and hypertensive cardiovascular disease. 6. Hyperlipidemia. 7. Recurrent depression and generalized anxiety disorder. 8. Adrenal insufficiency. 9. Gastroesophageal reflux disease and hiatal hernia status post Swapnil fundoplication. 10. Benign prostatic hypertrophy. 11. History of pulmonary sarcoidosis stable at this point in time. Discharge plan: Home Impression and plan of care have been directed as dictated by the signing physician. Luma Mancera nurse practitioner acting as scribe for signing physician. Patient Condition at Discharge: Good Plan - Discharge Summary Discharge Rx Participant: No New Discharge Prescriptions: New Furosemide [Lasix] 80 mg PO BID@0900,1600 #60 tab Continue Lovastatin [Mevacor] 40 mg PO HS Dicyclomine [Bentyl] 20 mg PO AC-TID PRN PRN Reason: STOMACH Levothyroxine Sodium [Synthroid] 25 mcg PO DAILY Citalopram Hydrobromide [Citalopram HBr] 20 mg PO BID Hydrocortisone [Cortef] 10 mg PO BID #0 Sacubitril/Valsartan [Entresto 24 mg-26 mg Tablet] 1 tab PO HS Carvedilol [Coreg] 3.125 mg PO BID clonazePAM 0.25 mg PO HS Midodrine HCl [ProAmatine] 10 mg PO TID #0 Albuterol Sulfate [Proair Hfa] 2 puff INHALATION RT-TID PRN PRN Reason: Shortness Of Breath Allopurinol [Zyloprim] 100 mg PO DAILY Finasteride [Proscar] 5 mg PO Q48H Tamsulosin HCl [Flomax] 0.4 mg PO Q48H Amiodarone [Cordarone] 200 mg PO DAILY Eylea 2mg/O.05ml 1 injection RIGHT EYE Q42D Apixaban [Eliquis] 2.5 mg PO BID #60 tab oxyCODONE-APAP 7.5-325MG [Percocet 7.5-325 mg] 1 tab PO Q6HR PRN PRN Reason: pain Discontinued Potassium Chloride ER [K-Dur 20] 20 meq PO DAILY Furosemide [Lasix] 40 mg PO DAILY Discharge Medication List Dicyclomine [Bentyl] 20 mg PO AC-TID PRN 10/27/13 [History] Lovastatin [Mevacor] 40 mg PO HS 10/27/13 [History] Citalopram Hydrobromide [Citalopram HBr] 20 mg PO BID 03/27/16 [History] Levothyroxine Sodium [Synthroid] 25 mcg PO DAILY 03/27/16 [History] Hydrocortisone [Cortef] 10 mg PO BID #0 04/08/18 [Rx] Sacubitril/Valsartan [Entresto 24 mg-26 mg Tablet] 1 tab PO HS 04/24/18 [History] Carvedilol [Coreg] 3.125 mg PO BID 05/06/18 [History] clonazePAM 0.25 mg PO HS 05/06/18 [History] Midodrine HCl [ProAmatine] 10 mg PO TID #0 05/10/18 [Rx] Albuterol Sulfate [Proair Hfa] 2 puff INHALATION RT-TID PRN 07/15/18 [History] Allopurinol [Zyloprim] 100 mg PO DAILY 07/15/18 [History] Amiodarone [Cordarone] 200 mg PO DAILY 07/15/18 [History] Eylea 2mg/O.05ml 1 injection RIGHT EYE Q42D 07/15/18 [History] Finasteride [Proscar] 5 mg PO Q48H 07/15/18 [History] Tamsulosin HCl [Flomax] 0.4 mg PO Q48H 07/15/18 [History] Apixaban [Eliquis] 2.5 mg PO BID #60 tab 07/19/18 [Rx] oxyCODONE-APAP 7.5-325MG [Percocet 7.5-325 mg] 1 tab PO Q6HR PRN 07/22/18 [History] Furosemide [Lasix] 80 mg PO BID@0900,1600 #60 tab 07/23/18 [Rx] Follow up Appointment(s)/Referral(s): Merritt Patel MD [Primary Care Provider] - 07/27/18 1:30 pm (with [employer]ICATIONS MANAGER) Patient Instructions/Handouts: Heart Failure (DC) Discharge Disposition: HOME SELF-CARE
== END 2018-07-23 11:31 | disposition home or self-care (01) | DRG 291 ==
LOC: EC 20:51 → 4MS4W 07-22 00:20 → OBSVTOIN 07-23 10:24
PROVIDERS: ADMIT Internal Medicine; ATTEND Internal Medicine
DX: I13.0 Hypertensive heart and chronic kidney disease with heart failure and stage 1 through stage 4 chronic kidney disease, or unspecified chronic kidney disease (principal); I50.23 Acute on chronic systolic (congestive) heart failure; E27.40 Unspecified adrenocortical insufficiency; F33.9 Major depressive disorder, recurrent, unspecified; I48.1 Persistent atrial fibrillation; N17.9 Acute kidney failure, unspecified; N18.3 Chronic kidney disease, stage 3 (moderate); I42.9 Cardiomyopathy, unspecified; I45.10 Unspecified right bundle-branch block; I69.998 Other sequelae following unspecified cerebrovascular disease; E78.5 Hyperlipidemia, unspecified; F41.1 Generalized anxiety disorder; H91.90 Unspecified hearing loss, unspecified ear; I25.2 Old myocardial infarction; K21.9 Gastro-esophageal reflux disease without esophagitis; K44.9 Diaphragmatic hernia without obstruction or gangrene; N40.1 Benign prostatic hyperplasia with lower urinary tract symptoms; R09.02 Hypoxemia; R33.8 Other retention of urine; R79.1 Abnormal coagulation profile; D86.0 Sarcoidosis of lung; E07.9 Disorder of thyroid, unspecified; H35.30 Unspecified macular degeneration; G43.909 Migraine, unspecified, not intractable, without status migrainosus; M16.0 Bilateral primary osteoarthritis of hip; M17.0 Bilateral primary osteoarthritis of knee; H53.8 Other visual disturbances; Z66 Do not resuscitate; Z79.01 Long term (current) use of anticoagulants; Z79.890 Hormone replacement therapy; Z79.899 Other long term (current) drug therapy; Z95.810 Presence of automatic (implantable) cardiac defibrillator; Z87.891 Personal history of nicotine dependence; Z86.79 Personal history of other diseases of the circulatory system; Z88.8 Allergy status to other drugs, medicaments and biological substances; Z88.1 Allergy status to other antibiotic agents; Z91.041 Radiographic dye allergy status; Z87.442 Personal history of urinary calculi; Z86.14 Personal history of Methicillin resistant Staphylococcus aureus infection; Z82.0 Family history of epilepsy and other diseases of the nervous system; Z82.49 Family history of ischemic heart disease and other diseases of the circulatory system; Z82.61 Family history of arthritis
CPT/HCPCS: 36415; 71046; 76770; 80048; 80053; 81003; 82553; 83735; 83880; 84484; 85025; 85610; 85730; 86850; 86900; 86901; 93005; 94760; 96374; 99285

== ENCOUNTER 2018-08-10 13:12 | Inpatient (IN) | payer MEDICARE ==
[2018-08-10] MEDS ORDERED: IPRATROPIUM-ALBUTEROL 3 ML NEB INHALATION STA (13:58)
--- NOTE | 2018-08-10 13:59 | ED ---
SOB HPI <Param Williamson - Last Filed: 08/10/18 17:07> - General Source: patient, RN notes reviewed Mode of arrival: wheelchair Limitations: no limitations <Kavon Comer - Last Filed: 08/10/18 17:09> - General Chief Complaint: Shortness of Breath Stated Complaint: SOB Time Seen by Provider: 08/10/18 13:33 - History of Present Illness Initial Comments: 73-year-old male presents emergency Department with chief complaint of shortness of breath. Patient states that he had a recent hospitalization for CHF. Patient states he feels similar in nature. He denies any increased swelling of his legs was states she has swelling of his abdomen. He's also had some loose stools but denies and arm at she's. Denies any dysuria hematuria. Patient states her last few days she's noticed increasing shortness of breath and nonproductive cough. No fever but states she's had chills. Patient states he is on oxygen at home. Patient has not gonorrhea and treatment recently states that he is supposed to but has not completed 1. Patient does take Eliquis for chronic A. fib. (Kavon Comer) - Related Data Home Medications Medication Instructions Recorded Confirmed Dicyclomine [Bentyl] 20 mg PO AC-TID PRN 10/27/13 08/10/18 Lovastatin [Mevacor] 40 mg PO HS 10/27/13 08/10/18 Citalopram Hydrobromide 20 mg PO BID 03/27/16 08/10/18 [Citalopram HBr] Levothyroxine Sodium [Synthroid] 25 mcg PO DAILY 03/27/16 08/10/18 Sacubitril/Valsartan [Entresto 24 1 tab PO BID 04/24/18 08/10/18 mg-26 mg Tablet] Carvedilol [Coreg] 3.125 mg PO BID 05/06/18 08/10/18 clonazePAM 0.25 mg PO HS 05/06/18 08/10/18 Albuterol Sulfate [Proair Hfa] 2 puff INHALATION RT-TID PRN 07/15/18 08/10/18 Allopurinol [Zyloprim] 100 mg PO DAILY 07/15/18 08/10/18 Amiodarone [Cordarone] 200 mg PO DAILY 07/15/18 08/10/18 Eylea 2mg/O.05ml 1 injection RIGHT EYE Q42D 07/15/18 08/10/18 Finasteride [Proscar] 5 mg PO Q48H 07/15/18 08/10/18 Tamsulosin HCl [Flomax] 0.4 mg PO Q48H 07/15/18 08/10/18 Fludrocortisone [Florinef] 0.1 mg PO BID 08/10/18 08/10/18 Potassium Chloride ER [K-Dur 20] 20 meq PO TID 08/10/18 08/10/18 Previous Rx's Medication Instructions Recorded Hydrocortisone [Cortef] 10 mg PO BID #0 04/08/18 Midodrine HCl [ProAmatine] 10 mg PO TID #0 05/10/18 Apixaban [Eliquis] 2.5 mg PO BID #60 tab 07/19/18 Furosemide [Lasix] 80 mg PO BID@0900,1600 #60 tab 07/23/18 Allergies Allergy/AdvReac Type Severity Reaction Status Date / Time Iodinated Contrast- Oral and Allergy Rash/Hives Verified 08/10/18 14:14 IV Dye [Iodinated Contrast Media - IV Dye] nitroglycerin Allergy passed out Verified 08/10/18 14:14 adhesive AdvReac SKIN TURNS Verified 08/10/18 14:14 RED piperacillin sodium AdvReac Confusion Verified 08/10/18 14:14 [From Zosyn] tazobactam sodium AdvReac Confusion Verified 08/10/18 14:14 [From Zosyn] Review of Systems ROS Other: All systems not noted in ROS Statement are negative. <Param Williamson - Last Filed: 08/10/18 17:07> ROS Other: All systems not noted in ROS Statement are negative. <Kavon Comer - Last Filed: 08/10/18 17:09> ROS Statement: Those systems with pertinent positive or pertinent negative responses have been documented in the HPI. Past Medical History Past Medical History: Atrial Fibrillation, Heart Failure, CVA/TIA, GERD/Reflux, Hearing Disorder / Deafness, Hyperlipidemia, Hypertension, Memory Impairment, Myocardial Infarction ([place]), Osteoarthritis (OA), Prostate Disorder, Respiratory Disorder, Thyroid Disorder Additional Past Medical History / Comment(s): stroke behind rt eye-poor vision, macular degeneration harris eyes, migraine & cluster headaches,, [place]'s x 2 ( age unknown), cardiomyopathy, hole in stomach from excedrin -it caused aspiration after which he was in an induced coma and on a ventilator for 9 days, sarcoidosis of lungs, abdominal and stomach pain, frequent diarrhea, several head injuries as a child, arthiritis bilateral knees and hips, multiple lipomas, kidney stones, enlarged prostate. Last Myocardial Infarction Date:: unknown History of Any Multi-Drug Resistant Organisms: MRSA Date of last positivie culture/infection: 08/15/09 MDRO Source:: LUNGS Past Surgical History: AICD, Bowel Resection, Heart Catheterization With Stent, Hernia Repair, Orthopedic Surgery, Pacemaker, Prostate Surgery, Tonsillectomy Additional Past Surgical History / Comment(s): 12/28/14 Lap jose fundoplasty with mesh and lap lysis of adhesions. Other SX: AICD 2008 with replacement 08/2013 (medtronic), 1995 bowel resection d/t perforation with colostomy with eventual reversal of colostomy, 2009-surgery for "hole in stomach", 2007 bleph oplasty bilaterally, 2001 deviated septum, 2003 TURP, 1975 vasectomy, 02/2013 R rotator cuff, surgery on "head" due to injuries, numerous lipoma removals-4 from L leg, 05/2014, 08/2013 EGD for removal of dentist spray nozzle, 1955 Aguilar surgery at [facility], 1975 vasectomy, lithrotripsy, bilateral inquinal hernia repairs with R side done x3, cardiac caths with stents Past Anesthesia/Blood Transfusion Reactions: Postoperative Nausea & Vomiting (PONV) Additional Past Anesthesia/Blood Transfusion Reaction / Comment(s): Pt has never recieved blood Date of Last Stent Placement:: 2007 Type of Cardiac Device: AICD Device Placement Date:: 08/2013 Medtronic Past Psychological History: Anxiety, Depression Smoking Status: Former smoker Past Alcohol Use History: Heavy Past Drug Use History: None Reported - Past Family History Brother(s) Family Medical History: Cancer Additional Family Medical History / Comment(s): Patient has 2 brothers that are both alive. One has history of prostate cancer. Father Family Medical History: Renal Disease, Respiratory Disorder Additional Family Medical History / Comment(s): Father at age 75 from renal failure. Mother Family Medical History: Coronary Artery Disease (CAD), Dementia Additional Family Medical History / Comment(s): Mother at age 94 from Alzheimer dementia. Sister(s) Family Medical History: Osteoarthritis (OA) Additional Family Medical History / Comment(s): Patient has one sister with osteoarthritis. <Kavon Comer - Last Filed: 08/10/18 17:09> General Exam Limitations: no limitations General appearance: alert, in no apparent distress Head exam: Present: atraumatic, normocephalic, normal inspection Eye exam: Present: normal appearance, PERRL, EOMI. Absent: scleral icterus, conjunctival injection, periorbital swelling ENT exam: Present: normal exam, mucous membranes moist Neck exam: Present: normal inspection. Absent: tenderness, meningismus, lympha denopathy Respiratory exam: Present: wheezes. Absent: normal lung sounds bilaterally, respiratory distress, rales, rhonchi, stridor Cardiovascular Exam: Present: regular rate, normal rhythm, normal heart sounds. Absent: systolic murmur, diastolic murmur, rubs, gallop, clicks GI/Abdominal exam: Present: soft, normal bowel sounds. Absent: distended, tenderness, guarding, rebound, rigid Neurological exam: Present: alert Skin exam: Present: warm, dry, intact, normal color. Absent: rash <EseKavon petit - Last Filed: 08/10/18 17:09> Course <Param Williamson - Last Filed: 08/10/18 17:07> Vital Signs 08/10/18 08/10/18 08/10/18 13:14 14:26 14:36 Temperature 97.9 F Pulse Rate 93 92 87 Respiratory 18 16 18 Rate Blood Pressure 113/71 O2 Sat by Pulse 94 L Oximetry - Reevaluation(s) Reevaluation #1: 08/10/18 17:07 Patient reevaluated by myself, Dr. Williamson. Patient does still feels short of breath and does not feel comfortable with discharge home. Patient states he is getting a proximal he 7 pounds in the past 5 days. Patient has had mild improvement following nebulizer. Chest x-ray consistent with CHF. Patient and family updated on results and plan. Case was discussed with Dr. Patel who is familiar with this patient. He does request Lasix drip at 10 per hour and cardiology consult. He will admit. (Param Williamson) Medical Decision Making - Lab Data Result diagrams: 08/10/18 13:52 08/10/18 13:52 <Param Williamson - Last Filed: 08/10/18 17:07> - Lab Data Result diagrams: 08/10/18 13:52 08/10/18 13:52 <Kavon Comer - Last Filed: 08/10/18 17:09> - Lab Data Lab Results 08/10/18 08/10/18 08/10/18 Range/Units 13:52 13:52 13:52 WBC 6.3 (3.8-10.6) k/uL RBC 3.75 L (4.30-5.90) m/uL Hgb 11.4 L (13.0-17.5) gm/dL Hct 36.6 L (39.0-53.0) % MCV 97.4 (80.0-100.0) fL MCH 30.4 (25.0-35.0) pg MCHC 31.2 (31.0-37.0) g/dL RDW 14.7 (11.5-15.5) % Plt Count 169 (150-450) k/uL Neutrophils % 78 % Lymphocytes % 8 % Monocytes % 11 % Eosinophils % 1 % Basophils % 1 % Neutrophils # 4.9 (1.3-7.7) k/uL Lymphocytes # 0.5 L (1.0-4.8) k/uL Monocytes # 0.7 (0-1.0) k/uL Eosinophils # 0.0 (0-0.7) k/uL Basophils # 0.1 (0-0.2) k/uL Hypochromasia Slight PT (9.0-12.0) sec INR (<1.2) APTT (22.0-30.0) sec Sodium 137 (137-145) mmol/L Potassium 4.5 (3.5-5.1) mmol/L Chloride 94 L (98-107) mmol/L Carbon Dioxide 34 H (22-30) mmol/L Anion Gap 9 mmol/L BUN 38 H (9-20) mg/dL Creatinine 2.12 H (0.66-1.25) mg/dL Est GFR (CKD-EPI)AfAm 34 (>60 ml/min/1.73 sqM) Est GFR (CKD-EPI)NonAf 30 (>60 ml/min/1.73 sqM) Glucose 102 H (74-99) mg/dL Calcium 8.9 (8.4-10.2) mg/dL Magnesium 1.7 (1.6-2.3) mg/dL Total Bilirubin 2.6 H (0.2-1.3) mg/dL AST 61 H (17-59) U/L ALT 66 (21-72) U/L Alkaline Phosphatase 58 (38-126) U/L Troponin I (0.000-0.034) ng/mL NT-Pro-B Natriuret Pep 26148 pg/mL Total Protein 6.3 (6.3-8.2) g/dL Albumin 3.2 L (3.5-5.0) g/dL 08/10/18 08/10/18 Range/Units 13:52 13:52 WBC (3.8-10.6) k/uL RBC (4.30-5.90) m/uL Hgb (13.0-17.5) gm/dL Hct (39.0-53.0) % MCV (80.0-100.0) fL MCH (25.0-35.0) pg MCHC (31.0-37.0) g/dL RDW (11.5-15.5) % Plt Count (150-450) k/uL Neutrophils % % Lymphocytes % % Monocytes % % Eosinophils % % Basophils % % Neutrophils # (1.3-7.7) k/uL Lymphocytes # (1.0-4.8) k/uL Monocytes # (0-1.0) k/uL Eosinophils # (0-0.7) k/uL Basophils # (0-0.2) k/uL Hypochromasia PT 15.4 H (9.0-12.0) sec INR 1.5 H (<1.2) APTT 31.9 H (22.0-30.0) sec Sodium (137-145) mmol/L Potassium (3.5-5.1) mmol/L Chloride (98-107) mmol/L Carbon Dioxide (22-30) mmol/L Anion Gap mmol/L BUN (9-20) mg/dL Creatinine (0.66-1.25) mg/dL Est GFR (CKD-EPI)AfAm (>60 ml/min/1.73 sqM) Est GFR (CKD-EPI)NonAf (>60 ml/min/1.73 sqM) Glucose (74-99) mg/dL Calcium (8.4-10.2) mg/dL Magnesium (1.6-2.3) mg/dL Total Bilirubin (0.2-1.3) mg/dL AST (17-59) U/L ALT (21-72) U/L Alkaline Phosphatase (38-126) U/L Troponin I 0.016 (0.000-0.034) ng/mL NT-Pro-B Natriuret Pep pg/mL Total Protein (6.3-8.2) g/dL Albumin (3.5-5.0) g/dL Disposition <Param Williamson - Last Filed: 08/10/18 17:07> <Kavon Comer - Last Filed: 08/10/18 17:09> Clinical Impression: Acute on chronic systolic (congestive) heart failure, Renal insufficiency Disposition: ADMITTED IP TO THIS HOSP Condition: Fair Referrals: Merritt Patel MD [Primary Care Provider] - 1-2 days
--- NOTE | 2018-08-10 14:34 | XR ---
EXAMINATION TYPE: XR chest 2V DATE OF EXAM: 08/10/2018 COMPARISON: 07/21/2018 TECHNIQUE: PA and lateral views submitted. HISTORY: Difficulty breathing FINDINGS: Cardiac device stable. Biapical pleural thickening with diffuse interstitial pattern, bilateral lower lobe infiltrate and small effusion which is stable. Heart is mildly enlarged and there suggestion of hyperinflation and possible COPD. Degenerative change of the spine. IMPRESSION: 1. Diffuse bilateral infiltrate and pleural effusion correlate for bilateral pneumonia versus CHF.
[2018-08-10 15:17] LABS: Basophils # (A) 0.1 k/uL (0-0.2); Basophils % (A) 1 %; Eosinophils % (A) 1 %; HCT 36.6 % (39.0-53.0); HGB 11.4 gm/dL (13.0-17.5); Hypochromasia Slight; INR 1.5 (<1.2); Lymphocytes # (A) 0.5 k/uL (1.0-4.8); Lymphocytes % (A) 8 %; MCH 30.4 pg (25.0-35.0); MCHC 31.2 g/dL (31.0-37.0); MCV 97.4 fL (80.0-100.0); Mean Platelet Volume 9.6; Monocytes # (A) 0.7 k/uL (0-1.0); Monocytes % (A) 11 %; Neutrophils # (A) 4.9 k/uL (1.3-7.7); Neutrophils % (A) 78 %; Partial Thromboplastin Time 31.9 sec (22.0-30.0); Platelet Count 169 k/uL (150-450); Prothrombin Time 15.4 sec (9.0-12.0); RBC 3.75 m/uL (4.30-5.90); RDW 14.7 % (11.5-15.5); WBC 6.3 k/uL (3.8-10.6)
[2018-08-10 15:24] LABS: Albumin 3.2 g/dL (3.5-5.0); Calcium 8.9 mg/dL (8.4-10.2); Magnesium 1.7 mg/dL (1.6-2.3); Total Bilirubin 2.6 mg/dL (0.2-1.3); Total Protein 6.3 g/dL (6.3-8.2)
[2018-08-10 15:39] LABS: Potassium 4.5 mmol/L (3.5-5.1)
[2018-08-10] MEDS ORDERED: DICYCLOMINE 20 MG TAB PO PRN (18:29)
--- NOTE | 2018-08-10 18:40 | P.HPIM ---
History of Present Illness H&P Date: 08/10/18 Chief Complaint: Dyspnea and shortness of breath, CHF exacerbation, fluid ov erload, COPD, A. 73-year-old male one of my office patient with multiple medical problem was known to have history of ischemic cardiopathy, CAD, CHF, COPD and A. fib with RVR who has been seeing cardiology regular basis and was in the hospital recently for fluid overload and systolic with diastolic congestive heart failure was started on Entresto was in for follow up in the office was aide francisco. Patient presented to the emergency department at [facility] today 5 pounds weight gain in the last 24 hours not a clear etiology has been taking his medication regularly. Patient was diagnosed with adrenal insufficiency and had improved been on Cortef and fludrocortisone as well. Patient was treated with IV diuretics his BMPs quite bit high chest x-ray significant for fluid overload and early pulmonary edema. Patient be hospitalized was start him on IV Lasix at drip and try to adjust his medication add spironolactone and maybe Zaroxolyn 18 to control his symptoms better without affecting his blood pressure. Review of Systems CONSTITUTIONAL: Well-developed no acute respiratory distress. EYES: No icterus sclerae, no conjunctivitis. EARS, NOSE, MOUTH, THROAT, and FACE: No sore throat, lymphadenopathy, carotid bruits or deformity. RESPIRATORY: Positive shortness of breath cough wheezes CARDIOVASCULAR: Positive PND orthopnea palpitation and angina. GASTROINTESTINAL: No Abd pain, Nausea or vomiting, no Diarrhea or constipation, No GI Bleed, no distention or masses. GENITOURINARY: Negative for Hematuria or UTI, no kidney stones. INTEGUMENT/BREAST: Negative for any muscular injury with mild osteoarthritis.. HEMATOLOGIC/LYMPHATIC: Negative for bleed or purpura. MUSCULOSKELTAL: Negative for Myalgia or arthralgia. NEURLOGICAL: Mild dizziness with presyncope. BEHAVIORAL/PSYCH: Negative. ENDOCRINE: Negative. Past Medical History Past Medical History: Atrial Fibrillation, Heart Failure, CVA/TIA, GERD/Reflux, Hearing Disorder / Deafness, Hyperlipidemia, Hypertension, Memory Impairment, Myocardial Infarction ([place]), Osteoarthritis (OA), Prostate Disorder, Respiratory Disorder, Thyroid Disorder Additional Past Medical History / Comment(s): stroke behind rt eye-poor vision, macular degeneration harris eyes, migraine & cluster headaches,, [place]'s x 2 ( age unknown), cardiomyopathy, hole in stomach from excedrin -it caused aspiration after which he was in an induced coma and on a ventilator for 9 days, sarcoidosis of lungs, abdominal and stomach pain, frequent diarrhea, several head injuries as a child, arthiritis bilateral knees and hips, multiple lipomas, kidney stones, enlarged prostate. Last Myocardial Infarction Date:: unknown History of Any Multi-Drug Resistant Organisms: MRSA Date of last positivie culture/infection: 08/15/09 MDRO Source:: LUNGS Past Surgical History: AICD, Bowel Resection, Heart Catheterization With Stent, Hernia Repair, Orthopedic Surgery, Pacemaker, Prostate Surgery, Tonsillectomy Additional Past Surgical History / Comment(s): 12/28/14 Lap jose fundoplasty with mesh and lap lysis of adhesions. Other SX: AICD 2008 with replacement 08/2013 (medtronic), 1995 bowel resection d/t perforation with colostomy with eventual reversal of colostomy, 2009-surgery for "hole in stomach", 2007 bl ephoplasty bilaterally, 2001 deviated septum, 2003 TURP, 1975 vasectomy, 02/2013 R rotator cuff, surgery on "head" due to injuries, numerous lipoma removals-4 from L leg, 05/2014, 08/2013 EGD for removal of dentist spray nozzle, [facility] vasectomy, lithrotripsy, bilateral inquinal hernia repairs with R side done x3, cardiac caths with stents Past Anesthesia/Blood Transfusion Reactions: Postoperative Nausea & Vomiting (PONV) Additional Past Anesthesia/Blood Transfusion Reaction / Comment(s): Pt has never recieved blood Date of Last Stent Placement:: 2007 Type of Cardiac Device: AICD Device Placement Date:: 08/2013 Medtronic Past Psychological History: Anxiety, Depression Smoking Status: Former smoker Past Alcohol Use History: Heavy Past Drug Use History: None Reported - Past Family History Brother(s) Family Medical History: Cancer Additional Family Medical History / Comment(s): Patient has 2 brothers that are both alive. One has history of prostate cancer. Father Family Medical History: Renal Disease, Respiratory Disorder Additional Family Medical History / Comment(s): Father at age 75 from renal failure. Mother Family Medical History: Coronary Artery Disease (CAD), Dementia Additional Family Medical History / Comment(s): Mother at age 94 from Alzheimer dementia. Sister(s) Family Medical History: Osteoarthritis (OA) Additional Family Medical History / Comment(s): Patient has one sister with osteoarthritis. Medications and Allergies Home Medications Medication Instructions Recorded Confirmed Type Dicyclomine [Bentyl] 20 mg PO AC-TID PRN 10/27/13 08/10/18 History Lovastatin [Mevacor] 40 mg PO HS 10/27/13 08/10/18 History Citalopram Hydrobromide 20 mg PO BID 03/27/16 08/10/18 History [Citalopram HBr] Levothyroxine Sodium [Synthroid] 25 mcg PO DAILY 03/27/16 08/10/18 History Hydrocortisone [Cortef] 10 mg PO BID #0 04/08/18 08/10/18 Rx Sacubitril/Valsartan [Entresto 24 1 tab PO BID 04/24/18 08/10/18 History mg-26 mg Tablet] Carvedilol [Coreg] 3.125 mg PO BID 05/06/18 08/10/18 History clonazePAM 0.25 mg PO HS 05/06/18 08/10/18 History Midodrine HCl [ProAmatine] 10 mg PO TID #0 05/10/18 08/10/18 Rx Albuterol Sulfate [Proair Hfa] 2 puff INHALATION RT-TID PRN 07/15/18 08/10/18 History Allopurinol [Zyloprim] 100 mg PO DAILY 07/15/18 08/10/18 History Amiodarone [Cordarone] 200 mg PO DAILY 07/15/18 08/10/18 History Eylea 2mg/O.05ml 1 injection RIGHT EYE Q42D 07/15/18 08/10/18 History Finasteride [Proscar] 5 mg PO Q48H 07/15/18 08/10/18 History Tamsulosin HCl [Flomax] 0.4 mg PO Q48H 07/15/18 08/10/18 History Apixaban [Eliquis] 2.5 mg PO BID #60 tab 07/19/18 08/10/18 Rx Furosemide [Lasix] 80 mg PO BID@0900,1600 #60 tab 07/23/18 08/10/18 Rx Fludrocortisone [Florinef] 0.1 mg PO BID 08/10/18 08/10/18 History Potassium Chloride ER [K-Dur 20] 20 meq PO TID 08/10/18 08/10/18 History Allergies Allergy/AdvReac Type Severity Reaction Status Date / Time Iodinated Contrast- Oral and Allergy Rash/Hives Verified 08/10/18 14:14 IV Dye [Iodinated Contrast Media - IV Dye] nitroglycerin Allergy passed out Verified 08/10/18 14:14 adhesive AdvReac SKIN TURNS Verified 08/10/18 14:14 RED piperacillin sodium AdvReac Confusion Verified 08/10/18 14:14 [From Zosyn] tazobactam sodium AdvReac Confusion Verified 08/10/18 14:14 [From Zosyn] Physical Exam Vitals: Vital Signs Temp Pulse Resp BP Pulse Ox 08/10/18 17:59 85 L 08/10/18 17:00 89 14 114/87 96 08/10/18 16:00 90 17 118/100 93 L 08/10/18 15:00 84 18 114/85 94 L 08/10/18 14:36 87 18 08/10/18 14:26 92 16 08/10/18 14:00 83 22 110/81 95 08/10/18 13:14 97.9 F 93 18 113/71 94 L Intake and Output 08/10/18 08/10/18 08/10/18 06:59 14:59 22:59 Other: Weight 70.307 kg General Appearance: Alert, cooperative, no distress, appears stated age. Neck HEENT: Supple, no lymphadenopathy, no thyroid enlargement, no carotid bruits. Lungs: Clear to auscultation without crackles or wheezes no rhonchi, no deformity. Chest Wall: Decrease expansion with deep inspiration no tenderness and no deformity was found on exam, no costochondral pain or discomfort. Positive for rhonchi. Heart: irregular rate and rhythm, S1, S2 normal, positive S3 positive JVD with systolic murmur. Back: Symmetric, no curvature, ROM normal, no CVA tenderness. Abdomen: Soft, non-tender, bowel sounds active all four quadrants, no masses, no organomegaly. Extremities: Trace edema with slight discoloration from the knee down bilaterally. Pulses: 2+ and symmetric. Skin: Skin color, texture, tugor normal, no rashes or lesions. Neurologic: Alert oriented x3 cranial nerves II through XII intact, no motor deficit, no abnormal balance or gait. Results CBC & Chem 7: 08/10/18 13:52 08/10/18 13:52 Labs: Abnormal Lab Results - Last 24 Hours (Table) 08/10/18 08/10/18 08/10/18 Range/Units 13:52 13:52 13:52 RBC 3.75 L (4.30-5.90) m/uL Hgb 11.4 L (13.0-17.5) gm/dL Hct 36.6 L (39.0-53.0) % Lymphocytes # 0.5 L (1.0-4.8) k/uL PT 15.4 H (9.0-12.0) sec INR 1.5 H (<1.2) APTT 31.9 H (22.0-30.0) sec Chloride 94 L (98-107) mmol/L Carbon Dioxide 34 H (22-30) mmol/L BUN 38 H (9-20) mg/dL Creatinine 2.12 H (0.66-1.25) mg/dL Glucose 102 H (74-99) mg/dL Total Bilirubin 2.6 H (0.2-1.3) mg/dL AST 61 H (17-59) U/L Albumin 3.2 L (3.5-5.0) g/dL Thrombosis Risk Factor Assmnt - DVT/VTE Prophylaxis DVT/VTE Prophylaxis: Pharmacologic Prophylaxis ordered, Mechanical Prophylaxis ordered Assessment and Plan Plan: 1 severe dyspnea and shortness of breath: Combination of CHF, early pulmonary edema, COPD and fluid overload. 2 CHF exacerbation: Mostly systolic dysfunction acute on a chronic and exacerbated by possibility of angina or ischemic change. Despite no change in medication and patient has been doing well with the new meds he was started on is still have another exacerbation will add Aldactone and if needed will add Zaroxolyn as a next step. Patient will be hospitalized will consult cardiology continue Lasix 10 mg IV drip in the next 24-48 hours. 3 atherosclerotic heart disease: With worsening symptoms on and off patient seen cardiology testing and heart cath is up-to-date at this point whether there is more event or change in troponin no need for any intervention. 4 acute kidney injury with chronic kidney disease with slightly elevated creatinine and decline in GFR continue to watch his symptoms especially with the 2 much diuretics at this point. 5 COPD with mild exacerbation continue patient on DuoNeb and Pulmicort continue O2 try to keep his pulse ox above 90 percentile. 6 A. fib with RVR: Patient remain on amiodarone and Eliquis along with beta bloc ker. 7 BPH: Remain on tamsulosin and Proscar. 8 adrenal insufficiency: Remain on Cortef and Florinef. 9 chronic anemia: No need for blood transfusion. 10 hyperlipidemia: Remain on lovastatin 40 mg daily. 11 hypothyroidism: Continue patient on levothyroxine when he 5 g daily. 12 chronic depression and mild anxiety attacks with mild diffusion sometimes remain on site Teleprompter 20 mg twice a day along with clonazepam 0.5 mg half tablet before bedtime. CODE STATUS: Full code. Admit patient to inpatient status for more than 2 nights.
[2018-08-10] MEDS: FUROSEMIDE 100 MG in SODIUM CHLORIDE 0.9% 90 ML IV SCH (18:53)
[2018-08-10] MEDS: MIDODRINE 5 MG TAB PO SCH (21:53)
[2018-08-10] MEDS: POTASSIUM CHLORIDE ER 20 MEQ TAB.ER PO SCH (21:53)
[2018-08-10] MEDS: FINASTERIDE 5 MG TAB PO SCH (21:53)
[2018-08-10] MEDS: ATORVASTATIN 10 MG TAB PO SCH (21:53)
[2018-08-10] MEDS: clonazePAM 0.5 MG TAB PO SCH (21:53)
[2018-08-10] MEDS: APIXABAN 2.5 MG TABLET PO SCH (21:54)
[2018-08-10] MEDS: CITALOPRAM HYDROBROMIDE 20 MG TAB PO SCH (21:54)
[2018-08-10] MEDS: HYDROCORTISONE 10 MG TAB PO SCH (23:28)
[2018-08-10] MEDS: oxyCODONE-APAP 7.5-325MG 1 EACH TAB PO PRN (23:28)
[2018-08-10] MEDS: CARVEDILOL 3.125 MG TAB PO SCH (23:41)
[2018-08-10] MEDS: SACUBITRIL/VALSARTAN 24 MG-26 MG TABLET PO SCH (23:41)
[2018-08-11] MEDS: FUROSEMIDE 100 MG in SODIUM CHLORIDE 0.9% 90 ML IV SCH ×2 (04:19→17:37)
[2018-08-11] MEDS: LEVOTHYROXINE 25 MCG TAB PO SCH (06:30)
[2018-08-11] MEDS ORDERED: FUROSEMIDE 80 MG TAB PO SCH (09:00)
[2018-08-11] MEDS ORDERED: AMIODARONE 200 MG TAB PO SCH (09:00)
[2018-08-11] MEDS: ALBUTEROL NEBULIZED 2.5 MG/3 ML INHALATION PRN ×2 (09:22→13:25)
[2018-08-11] MEDS: ONDANSETRON 4 MG/2 ML VIAL IVP PRN ×2 (10:37→22:30)
[2018-08-11] MEDS: CITALOPRAM HYDROBROMIDE 20 MG TAB PO SCH ×2 (12:53→21:09)
[2018-08-11] MEDS: ALLOPURINOL 100 MG TAB PO SCH (12:53)
[2018-08-11] MEDS: CARVEDILOL 3.125 MG TAB PO SCH ×2 (12:53→17:42)
[2018-08-11] MEDS: APIXABAN 2.5 MG TABLET PO SCH ×2 (12:53→21:09)
[2018-08-11] MEDS: HYDROCORTISONE 10 MG TAB PO SCH ×2 (12:54→23:44)
[2018-08-11] MEDS: MIDODRINE 5 MG TAB PO SCH ×3 (12:54→21:10)
[2018-08-11] MEDS: SPIRONOLACTONE 25 MG TAB PO SCH (12:55)
[2018-08-11] MEDS: TAMSULOSIN 0.4 MG CAP.ER.24H PO SCH (12:55)
[2018-08-11] MEDS: POTASSIUM CHLORIDE ER 20 MEQ TAB.ER PO SCH ×3 (12:55→23:44)
[2018-08-11] MEDS: DULoxetine HCL 30 MG CAPSULE.DR PO SCH (13:00)
[2018-08-11] MEDS: SACUBITRIL/VALSARTAN 24 MG-26 MG TABLET PO SCH (13:01)
--- NOTE | 2018-08-11 14:10 | P.PN ---
Subjective Progress Note Date: 08/11/18 73-year-old male one of my office patient with multiple medical problem was known to have history of ischemic cardiopathy, CAD, CHF, COPD and A. jesús with RVR who has been seeing cardiology regular basis and was in the hospital recently for fluid overload and systolic with diastolic congestive he art failure was started on Entresto was in for follow up in the office was feeling well. Patient presented to the emergency department at [facility] today 5 pounds weight gain in the last 24 hours not a clear etiology has been taking his medication regularly. Patient was diagnosed with adrenal insufficiency and had improved been on Cortef and fludrocortisone as well. Patient was treated with IV diuretics his BMPs quite bit high chest x-ray significant for fluid overload and early pulmonary edema. Patient be hospitalized was start him on IV Lasix at drip and try to adjust his medication add spironolactone and maybe Zaroxolyn 18 to control his symptoms better without affecting his blood pressure. 08/11: Patient is continued on a Lasix drip as well as Aldactone 25 mg daily was added for this morning and Entresto dose was increased to 49/51 mg. He has had weight loss of 1-1/2 kg. Patient is complaining of nausea for which Zofran was added. Cardiology is on consult. Discussed discharge planning with option of palliative care which patient and at bedside are open to pursuing. Case management to follow-up. Patient has been afebrile, heart rate in the 90s, blood pressure 124/68 but ran low during the night. Pulse ox 90% on 3 L nasal cannula. Patient has ongoing concerns for depression and Cymbalta added to Celexa. Review of Systems CONSTITUTIONAL: Denies fever, denies chills EYES: No icterus sclerae, no conjunctivitis. EARS, NOSE, MOUTH, THROAT, and FACE: No sore throat, lymphadenopathy, carotid bruits or deformity. RESPIRATORY: Positive shortness of breath cough wheezes CARDIOVASCULAR: Positive PND orthopnea palpitation and angina. GASTROINTESTINAL: No Abd pain, reports nausea and vomiting, no Diarrhea or constipation, No GI Bleed, no distention or masses. GENITOURINARY: Negative for Hematuria or UTI, no kidney stones. INTEGUMENT/BREAST: Negative for any muscular injury with mild osteoarthritis.. HEMATOLOGIC/LYMPHATIC: Negative for bleed or purpura. MUSCULOSKELTAL: Negative for Myalgia or arthralgia. NEURLOGICAL: Mild dizziness with presyncope. BEHAVIORAL/PSYCH: Negative. Reports depression. ENDOCRINE: Negative. Objective - Vital Signs Vital signs: Vital Signs Temp 98.1 F 08/11/18 08:00 Pulse 94 08/11/18 09:33 Resp 16 08/11/18 08:00 BP 124/68 08/11/18 08:00 Pulse Ox 98 08/11/18 08:00 Intake & Output 08/10/18 08/11/18 08/11/18 18:59 06:59 18:59 Intake Total 194.333 240 Output Total 100 200 Balance 94.333 40 Weight 70.307 kg 68.7 kg 68.7 kg Intake: Intake, IV Titration 144.333 Amount Furosemide 100 mg In 144.333 Sodium Chloride 0.9% 90 ml @ 10 MG/HR 10 mls/hr IV .Q10H [facility] Rx#: [id number] Oral 50 240 Output: Urine 100 200 Other: Voiding Method Urinal - Exam General Appearance: Alert, cooperative, no distress, appears stated age. Patient's is at bedside. Neck HEENT: Supple, no lymphadenopathy, no thyroid enlargement, no carotid bruits. Lungs: Clear to auscultation without crackles or wheezes no rhonchi, no deformity. Chest Wall: Decrease expansion with deep inspiration no tenderness and no deformity was found on exam, no costochondral pain or discomfort. Positive for rhonchi. Heart: irregular rate and rhythm, S1, S2 normal, positive S3 positive JVD with systolic murmur. Back: Symmetric, no curvature, ROM normal, no CVA tenderness. Abdomen: Soft, non-tender, bowel sounds active all four quadrants, no masses, no organomegaly. Extremities: Trace edema with slight discoloration from the knee down bilaterally. Pulses: 2+ and symmetric. Skin: Skin color, texture, tugor normal, no rashes or lesions. Neurologic: Alert oriented x3 cranial nerves II through XII intact, no motor deficit, no abnormal balance or gait. - Labs CBC & Chem 7: 08/10/18 13:52 08/10/18 13:52 Labs: Abnormal Lab Results - Last 24 Hours (Table) 08/10/18 08/10/18 08/10/18 Range/Units 13:52 13:52 13:52 RBC 3.75 L (4.30-5.90) m/uL Hgb 11.4 L (13.0-17.5) gm/dL Hct 36.6 L (39.0-53.0) % Lymphocytes # 0.5 L (1.0-4.8) k/uL PT 15.4 H (9.0-12.0) sec INR 1.5 H (<1.2) APTT 31.9 H (22.0-30.0) sec Chloride 94 L (98-107) mmol/L Carbon Dioxide 34 H (22-30) mmol/L BUN 38 H (9-20) mg/dL Creatinine 2.12 H (0.66-1.25) mg/dL Glucose 102 H (74-99) mg/dL Total Bilirubin 2.6 H (0.2-1.3) mg/dL AST 61 H (17-59) U/L Albumin 3.2 L (3.5-5.0) g/dL Assessment and Plan Plan: 1 acute respiratory distress secondary to acute on chronic systolic heart fa ilure, early pulmonary edema, COPD and fluid overload. Continue Lasix drip, Entresto, Aldactone, Coreg 3.125 mg twice daily. Cardiology consult. Continue nebulizer treatments 3 times daily as needed. Entresto doses been increased. 2 acute on chronic systolic heart failure. Continue as in #1. 3 atherosclerotic heart disease: With worsening symptoms on and off patient seen cardiology testing and heart cath is up-to-date at this point whether there is more event or change in troponin no need for any intervention. 4 acute kidney injury with chronic kidney disease III with slightly elevated creatinine and decline in GFR continue to watch his symptoms especially with the 2 much diuretics at this point. 5 COPD with mild exacerbation continue patient on DuoNeb and Pulmicort continue O2 try to keep his pulse ox above 90 percentile. 6 chronic atrial fibrillation: Patient remain on amiodarone and Eliquis along with beta emile. 7 BPH: Remain on tamsulosin and Proscar. 8 adrenal insufficiency: Remain on Cortef and Florinef. 9 chronic anemia: No need for blood transfusion. 10 hyperlipidemia: Remain on lovastatin 40 mg daily. 11 hypothyroidism: Continue patient on levothyroxine when he 5 g daily. 12. Recurrent depression and mild anxiety attacks. Continue Celexa 20 mg twice daily, Klonopin 0.25 mg at bedtime and Cymbalta 30 mg daily added. 13. DVT prophylaxis. Continue eliquis. 14. GI prophylaxis. Pepcid. CODE STATUS: Full code. Discharge diagnoses: Home with palliative care Impression and plan of care have been directed as dictated by the signing physician. Luma Mancera nurse practitioner acting as scribe for signing physician.
--- NOTE | 2018-08-11 17:17 | CONS ---
CONSULTATION Kulwant Godoy is a 73-year-old patient who has been admitted to the hospital with a diagnosis of exacerbation of systolic heart failure. He has chronic atrial fibrillation. He came into the hospital mainly with complaints of feeling weak, short of breath, tired. He has had frequent hospitalizations. He has noticed swelling of his feet, worsening breathing, and after arrival he was thought to be in congestive heart failure, initiated on Lasix drip. He has no chest pain. Shortness of breath has improved modestly. He actually feels a bit better than he did yesterday when he came in. He does have history of what seems to be a nonischemic cardiomyopathy. Apparently, this gentleman sees Dr. Cárdenas. He has a nonischemic cardiomyopathy, chronic atrial fibrillation. ICD has been on amiodarone. He has history of a cardiac cath in the past, which did not reveal any significant obstructive CAD. Cardiac cath was performed more than 10 years ago, but he did not have any obstructive CAD. He has had some LV dysfunction with some ventricular ectopy as well and now has an AICD with no recent discharges at least for the last 2-3 years. His main issue was edema, shortness of breath, weakness, and he is being diuresed. PAST MEDICAL HISTORY: 1. Nonischemic cardiomyopathy. 2. Chronic atrial fibrillation. 3. History of ICD. 4. Hypertension. 5. Hyperlipidemia. 6. History of some CVA, details are unclear. MEDICATIONS: At home include Mevacor, Synthroid, Entresto, Coreg 3.125 mg b.i.d., Midodrine, amiodarone 200 mg daily, Flomax, Eliquis 2.5 mg b.i.d., Lasix 80 mg b.i.d. ALLERGIES: HE IS ALLERGIC TO IODINE DYE, NITROGLYCERIN SUBLINGUAL AND ZOSYN. PHYSICAL EXAMINATION: Blood pressure is 124/70, pulse rate is about 90, irregular, irregular. HEENT unremarkable. Fundus was not examined by me. NECK: Supple. There is JVD of 1 cm. No carotid bruit. Heart exam reveals S1, S2 with a holosystolic murmur at the apex and left lower sternal border. Lungs reveal diminished air entry with fine rales over both bases. ABDOMEN: Soft. Lower extremities reveal diminished pulses. No edema. Central nervous system is normal. IMPRESSION: 1. Exacerbation of systolic heart failure. 2. Chronic atrial fibrillation. 3. Status post ICD. RECOMMENDATION: I am recommending that we continue the Lasix drip, supplement magnesium and potassium. Check BMP, magnesium in the morning. Given the fact he is complaining of being nauseated, I will discontinue amiodarone for the time being. We will reassess the need as an outpatient. Discussed my thoughts in detail with the patient. Thank you very much for the consult. MARGARET / DANUTAN: [id number] /
[2018-08-11] MEDS ORDERED: MAGNESIUM HYDROXIDE 2,400 MG/10 ML CUP PO PRN (19:38)
[2018-08-11] MEDS ORDERED: LACTULOSE 20 GM/30 ML CUP PO ONE (19:39)
[2018-08-11] MEDS: ATORVASTATIN 10 MG TAB PO SCH (21:07)
[2018-08-11] MEDS: clonazePAM 0.5 MG TAB PO SCH (21:08)
[2018-08-11] MEDS: SACUBITRIL/VALSARTAN 49 MG-51 MG TABLET PO SCH (21:10)
[2018-08-11] MEDS: BUDESONIDE 0.5 MG/2 ML NEBU INHALATION SCH (21:41)
[2018-08-12] MEDS: FUROSEMIDE 100 MG in SODIUM CHLORIDE 0.9% 90 ML IV SCH ×2 (00:42→14:56)
[2018-08-12] MEDS ORDERED: Magnesium Replacement Protocol 1 EACH MISC MISCELLANE PRN (01:20)
[2018-08-12] MEDS ORDERED: MAGNESIUM SULFATE-D5W PMX 1 GM in DEXTROSE/WATER 1 100ML.BAG IVPB SCH (01:30)
[2018-08-12] MEDS: BUDESONIDE 0.5 MG/2 ML NEBU INHALATION SCH ×2 (05:31→20:48)
[2018-08-12] MEDS: ALBUTEROL NEBULIZED 2.5 MG/3 ML INHALATION PRN ×2 (05:31→20:48)
[2018-08-12] MEDS: CARVEDILOL 3.125 MG TAB PO SCH ×2 (06:50→17:04)
[2018-08-12] MEDS: LEVOTHYROXINE 25 MCG TAB PO SCH (06:50)
[2018-08-12] MEDS: ONDANSETRON 4 MG/2 ML VIAL IVP PRN (06:50)
[2018-08-12 06:56] LABS: Albumin 3.2 g/dL (3.5-5.0); Calcium 8.8 mg/dL (8.4-10.2); Magnesium 1.9 mg/dL (1.6-2.3); Potassium 4.7 mmol/L (3.5-5.1); Total Bilirubin 2.1 mg/dL (0.2-1.3); Total Protein 6.1 g/dL (6.3-8.2)
[2018-08-12 07:01] LABS: Basophils # (A) 0.1 k/uL (0-0.2); Basophils % (A) 1 %; Eosinophils # (A) 0.1 k/uL (0-0.7); Eosinophils % (A) 1 %; HCT 36.4 % (39.0-53.0); HGB 11.2 gm/dL (13.0-17.5); Hypochromasia Slight; Lymphocytes % (A) 16 %; MCH 29.9 pg (25.0-35.0); MCHC 30.6 g/dL (31.0-37.0); MCV 97.5 fL (80.0-100.0); Mean Platelet Volume 9.6; Monocytes # (A) 0.8 k/uL (0-1.0); Monocytes % (A) 14 %; Neutrophils % (A) 66 %; Platelet Count 147 k/uL (150-450); RBC 3.73 m/uL (4.30-5.90); RDW 14.3 % (11.5-15.5); WBC 6.1 k/uL (3.8-10.6)
[2018-08-12] MEDS: SPIRONOLACTONE 25 MG TAB PO SCH (08:05)
[2018-08-12] MEDS: HYDROCORTISONE 10 MG TAB PO SCH ×2 (08:05→20:45)
[2018-08-12] MEDS: SACUBITRIL/VALSARTAN 49 MG-51 MG TABLET PO SCH ×2 (08:05→20:45)
[2018-08-12] MEDS: FAMOTIDINE 20 MG TAB PO SCH (08:05)
[2018-08-12] MEDS: ALLOPURINOL 100 MG TAB PO SCH (08:05)
[2018-08-12] MEDS: MIDODRINE 5 MG TAB PO SCH ×3 (08:05→20:46)
[2018-08-12] MEDS: APIXABAN 2.5 MG TABLET PO SCH ×2 (08:05→20:45)
[2018-08-12] MEDS: POTASSIUM CHLORIDE ER 20 MEQ TAB.ER PO SCH ×3 (08:05→20:46)
[2018-08-12] MEDS: CITALOPRAM HYDROBROMIDE 20 MG TAB PO SCH ×2 (08:05→20:46)
[2018-08-12] MEDS: DULoxetine HCL 30 MG CAPSULE.DR PO SCH (08:05)
[2018-08-12] MEDS: oxyCODONE-APAP 7.5-325MG 1 EACH TAB PO PRN (08:17)
--- NOTE | 2018-08-12 11:42 | P.PN ---
Subjective Progress Note Date: 08/12/18 This is a pleasant 73-year-old gentleman admitted to the hospital with exacerbation of systolic congestive heart failure.he was initiated on IV Lasix drip yesterday, overall feels significantly better today. His blood pressure is 115/80 with a heart rate in the 70s, 96% on 3 L of oxygen.White blood cell count 6.1, hemoglobin 11.2, platelet count 147. Sodium 137, potassium 4.7, BUN 46 and creatinine 2.6.BNP level 19,300.IV Lasix drip was discontinued today and patient was changed over to 80 mg IV twice a day. Plan is for progression to oral diuretics in the morning and possible discharge home tomorrow if stable. Objective - Vital Signs Vital signs: Vital Signs Temp 97.6 F 08/12/18 08:08 Pulse 91 08/12/18 08:08 Resp 18 08/12/18 08:08 BP 115/81 08/12/18 08:08 Pulse Ox 96 08/12/18 08:08 Intake & Output 08/11/18 08/12/18 08/12/18 18:59 06:59 18:59 Intake Total 820 80.833 250 Output Total 500 228 Balance 320 -147.167 250 Weight 68.7 kg 69.6 kg Intake: IV 10 10 Invasive Line 1 10 10 Intake, IV Titration 100 70.833 Amount Furosemide 100 mg In 100 70.833 Sodium Chloride 0.9% 90 ml @ 10 MG/HR 10 mls/hr IV .Q10H [facility] Rx#: [id number] Oral 720 240 Output: Urine 500 228 Other: Voiding Method Urinal Urinal Urinal # Voids 0 - Exam General Appearance: Alert, cooperative, no distress, appears stated age. Patient's is at bedside. Neck HEENT: Supple, no lymphadenopathy, no thyroid enlargement, no carotid bruits. Lungs: Clear to auscultation without crackles or wheezes no rhonchi, no deformity. Chest Wall: Decrease expansion with deep inspiration no tenderness and no deformity was found on exam, no costochondral pain or discomfort. Positive for rhonchi. Heart: irregular rate and rhythm, S1, S2 normal, positive S3 positive JVD with systolic murmur. Back: Symmetric, no curvature, ROM normal, no CVA tenderness. Abdomen: Soft, non-tender, bowel sounds active all four quadrants, no masses, no organomegaly. Extremities: Trace edema with slight discoloration from the knee down bilaterally. Pulses: 2+ and symmetric. Skin: Skin color, texture, tugor normal, no rashes or lesions. Neurologic: Alert oriented x3 cranial nerves II through XII intact, no motor deficit, no abnormal balance or gait. - Labs CBC & Chem 7: 08/12/18 06:18 08/12/18 06:18 Labs: Abnormal Lab Results - Last 24 Hours (Table) 08/12/18 08/12/18 Range/Units 06:18 06:18 RBC 3.73 L (4.30-5.90) m/uL Hgb 11.2 L (13.0-17.5) gm/dL Hct 36.4 L (39.0-53.0) % MCHC 30.6 L (31.0-37.0) g/dL Plt Count 147 L (150-450) k/uL Chloride 97 L (98-107) mmol/L Carbon Dioxide 33 H (22-30) mmol/L BUN 46 H (9-20) mg/dL Creatinine 2.64 H (0.66-1.25) mg/dL Glucose 101 H (74-99) mg/dL Total Bilirubin 2.1 H (0.2-1.3) mg/dL AST 114 H (17-59) U/L ALT 154 H (21-72) U/L Total Protein 6.1 L (6.3-8.2) g/dL Albumin 3.2 L (3.5-5.0) g/dL Assessment and Plan Plan: assessment and plan 1 acute respiratory distress secondary to acute on chronic systolic heart failure, early pulmonary edema, COPD and fluid overload. 2 acute on chronic systolic heart failure. 3 atherosclerotic heart disease 4 acute kidney injury with chronic kidney disease III 5 COPD with mild exacerbation 6 chronic atrial fibrillation 7 BPH: 8 adrenal insufficiency 9 chronic anemia 10 hyperlipidemia 11 hypothyroidism 12. Recurrent depression and mild anxiety attacks plan Lasix drip discontinued today and patient has been initiated on 80 mg of IV Lasix twice a day. We will continue this until tomorrow, the plan is from tomorrow to change patient over to oral diuretics and plan for possible discharge home if stable. DNP note has been reviewed, I agree with a documented findings and plan of care. Patient was seen and examined.
[2018-08-12] MEDS: FUROSEMIDE 10 MG/ML 10 ML VIAL IV SCH ×2 (12:01→20:46)
--- NOTE | 2018-08-12 14:24 | P.PN ---
Subjective Progress Note Date: 08/12/18 73-year-old male one of my office patient with multiple medical problem was known to have history of ischemic cardiopathy, CAD, CHF, COPD and A. jesús with RVR who has been seeing cardiology regular basis and was in the hospital recently for fluid overload and systolic with diastolic congestive he art failure was started on Entresto was in for follow up in the office was feeling well. Patient presented to the emergency department at [facility] today 5 pounds weight gain in the last 24 hours not a clear etiology has been taking his medication regularly. Patient was diagnosed with adrenal insufficiency and had improved been on Cortef and fludrocortisone as well. Patient was treated with IV diuretics his BMPs quite bit high chest x-ray significant for fluid overload and early pulmonary edema. Patient be hospitalized was start him on IV Lasix at drip and try to adjust his medication add spironolactone and maybe Zaroxolyn 18 to control his symptoms better without affecting his blood pressure. 08/11: Patient is continued on a Lasix drip as well as Aldactone 25 mg daily was added for this morning and Entresto dose was increased to 49/51 mg. He has had weight loss of 1-1/2 kg. Patient is complaining of nausea for which Zofran was added. Cardiology is on consult. Discussed discharge planning with option of palliative care which patient and at bedside are open to pursuing. Case management to follow-up. Patient has been afebrile, heart rate in the 90s, blood pressure 124/68 but ran low during the night. Pulse ox 90% on 3 L nasal cannula. Patient has ongoing concerns for depression and Cymbalta added to Celexa. 08/12: Patient has been afebrile, heart rate in the 70s to 90s, blood pressure 109/75, pulse ox 95% on 3 L nasal cannula. White count 6.1, hemoglobin 11.2. Sodium 137, potassium 4.7, chloride 97, CO2 33, BUN 46 and creatinine 2.64. Magnesium 1.9, total bilirubin 2.1, AST is increased to 114, ALT increased to 154 and alkaline phosphatase increased to 95. Repeat pro and be as 19,300. We will order liver ultrasound. IV Lasix will be discontinued and patient started on IV push Lasix 80 mg twice daily and plan to resume home dose at 80 mg orally twice daily tomorrow morning. Patient is having difficulty sleeping and according to his , he often takes a full dose of clonazepam at home for sleep. We will increase dose to 0.5 mg at bedtime as needed. Review of Systems CONSTITUTIONAL: Denies fever, denies chills. EYES: No icterus sclerae, no conjunctivitis. EARS, NOSE, MOUTH, THROAT, and FACE: No sore throat, lymphadenopathy, carotid bruits or deformity. RESPIRATORY: Positive shortness of breath cough wheezes CARDIOVASCULAR: Positive PND orthopnea palpitation and angina. GASTROINTESTINAL: No Abd pain, reports nausea and vomiting, no Diarrhea or constipation, No GI Bleed, no distention or masses. GENITOURINARY: Negative for Hematuria or UTI, no kidney stones. INTEGUMENT/BREAST: Negative for any muscular injury with mild osteoarthritis.. HEMATOLOGIC/LYMPHATIC: Negative for bleed or purpura. MUSCULOSKELTAL: Negative for Myalgia or arthralgia. NEURLOGICAL: Mild dizziness with presyncope. BEHAVIORAL/PSYCH: Negative. Reports depression. Reports insomnia. ENDOCRINE: Negative. Objective - Vital Signs Vital signs: Vital Signs Temp 97.7 F 08/12/18 12:11 Pulse 91 08/12/18 12:11 Resp 18 08/12/18 12:11 BP 109/75 08/12/18 12:11 Pulse Ox 95 08/12/18 12:11 Intake & Output 08/11/18 08/12/18 08/12/18 18:59 06:59 18:59 Intake Total 820 80.833 740 Output Total 500 228 800 Balance 320 -147.167 -60 Weight 68.7 kg 69.6 kg Intake: IV 10 20 Invasive Line 1 10 20 Intake, IV Titration 100 70.833 Amount Furosemide 100 mg In 100 70.833 Sodium Chloride 0.9% 90 ml @ 10 MG/HR 10 mls/hr IV .Q10H [facility] Rx#: [id number] Oral 720 720 Output: Urine 500 228 800 Other: Voiding Method Urinal Urinal Urinal # Voids 0 - Exam General Appearance: Alert, cooperative, no distress, appears stated age. Neck HEENT: Supple, no lymphadenopathy, no thyroid enlargement, no carotid bruits. Lungs: Clear to auscultation without crackles or wheezes no rhonchi, no deform ity. Chest Wall: Decrease expansion with deep inspiration no tenderness and no deformity was found on exam, no costochondral pain or discomfort. Positive for rhonchi. Heart: irregular rate and rhythm, S1, S2 normal, positive S3 positive JVD with systolic murmur. Back: Symmetric, no curvature, ROM normal, no CVA tenderness. Abdomen: Soft, non-tender, bowel sounds active all four quadrants, no masses, no organomegaly. Extremities: Trace edema with slight discoloration from the knee down bilateral ly. Pulses: 2+ and symmetric. Skin: Skin color, texture, tugor normal, no rashes or lesions. Neurologic: Alert oriented x3 cranial nerves II through XII intact, no motor deficit, no abnormal balance or gait. - Labs CBC & Chem 7: 08/12/18 06:18 08/12/18 06:18 Labs: Abnormal Lab Results - Last 24 Hours (Table) 08/12/18 08/12/18 Range/Units 06:18 06:18 RBC 3.73 L (4.30-5.90) m/uL Hgb 11.2 L (13.0-17.5) gm/dL Hct 36.4 L (39.0-53.0) % MCHC 30.6 L (31.0-37.0) g/dL Plt Count 147 L (150-450) k/uL Chloride 97 L (98-107) mmol/L Carbon Dioxide 33 H (22-30) mmol/L BUN 46 H (9-20) mg/dL Creatinine 2.64 H (0.66-1.25) mg/dL Glucose 101 H (74-99) mg/dL Total Bilirubin 2.1 H (0.2-1.3) mg/dL AST 114 H (17-59) U/L ALT 154 H (21-72) U/L Total Protein 6.1 L (6.3-8.2) g/dL Albumin 3.2 L (3.5-5.0) g/dL Assessment and Plan Plan: 1 acute respiratory distress secondary to acute on chronic systolic heart failure, early pulmonary edema, COPD and fluid overload. Continue Lasix drip will be changed to IV push Lasix 80 mg twice daily for today and resume home dose of 80 oral twice daily tomorrow morning, Entresto, Aldactone, Coreg 3.125 mg twice daily. Cardiology consult. Continue nebulizer treatments 3 times daily as needed. Entresto doses been increased. 2 acute on chronic systolic heart failure. Continue as in #1. 3 atherosclerotic heart disease: With worsening symptoms on and off patient seen cardiology testing and heart cath is up-to-date at this point whether there is more event or change in troponin no need for any intervention. 4 acute kidney injury with chronic kidney disease III with slightly elevated creatinine and decline in GFR continue to watch his symptoms especially with the 2 much diuretics at this point. 5 COPD with mild exacerbation continue patient on DuoNeb and Pulmicort continue O2 try to keep his pulse ox above 90 percentile. 6 chronic atrial fibrillation: Patient remain on amiodarone and Eliquis along with beta emile. 7 BPH: Remain on tamsulosin and Proscar. 8 adrenal insufficiency: Remain on Cortef and Florinef. 9 chronic anemia: No need for blood transfusion. 10 hyperlipidemia: Remain on lovastatin 40 mg daily. 11 hypothyroidism: Continue patient on levothyroxine when he 5 g daily. 12. Recurrent depression and mild anxiety attacks. Continue Celexa 20 mg twice daily, Klonopin 0.25 mg at bedtime and Cymbalta 30 mg daily added. 13. DVT prophylaxis. Continue eliquis. 14. GI prophylaxis. Pepcid. CODE STATUS: Full code. Discharge diagnoses: Home with the [facility] with palliative care tomorrow Impression and plan of care have been directed as dictated by the signing physician. Luma Mancera nurse practitioner acting as scribe for signing physician.
--- NOTE | 2018-08-12 16:06 | US ---
EXAMINATION TYPE: US abdomen limited DATE OF EXAM: 08/12/2018 COMPARISON: Renal US 07/21/2018 CLINICAL HISTORY: 73-year-old male elevated liver enzymes. TECHNIQUE: Multiple sonographic images of the right upper quadrant are obtained. FINDINGS: EXAM MEASUREMENTS: Liver Length: 15.2 cm Gallbladder Wall: 3.8 mm CBD: 0.4 cm Right Kidney: 10.7 x 5.3 x 5.7 cm Pancreas: Tail and proximal body obscured by overlying bowel gas Liver: homogeneous Gallbladder: No abnormal gallbladder distention or surrounding fluid. No shadowing calculi. There is borderline to mild gallbladder wall thickening demonstrated. Evidence for sonographic Lr's sign: no CBD: wnl Right Kidney: No hydronephrosis. Cortical thinning with increased cortical echogenicity. Mild perihepatic ascites is noted as well as a right pleural effusion IMPRESSION: 1. Mild perihepatic ascites and right pleural effusion. Findings suggest fluid overload state. Clinic ally correlate. 2. Nonspecific mild gallbladder wall thickening can also be seen in the setting of fluid overload sta te. No cholelithiasis or ancillary findings of acute cholecystitis. 3. Chronic medical renal disease.
[2018-08-12] MEDS: FINASTERIDE 5 MG TAB PO SCH (17:04)
[2018-08-12] MEDS: clonazePAM 0.5 MG TAB PO SCH (20:45)
[2018-08-12] MEDS: ATORVASTATIN 10 MG TAB PO SCH (20:45)
[2018-08-13] MEDS: CARVEDILOL 3.125 MG TAB PO SCH ×2 (06:34→16:48)
[2018-08-13] MEDS: LEVOTHYROXINE 25 MCG TAB PO SCH (06:34)
[2018-08-13 07:43] LABS: Albumin 3.1 g/dL (3.5-5.0); Calcium 8.9 mg/dL (8.4-10.2); Potassium 5.5 mmol/L (3.5-5.1); Total Bilirubin 1.9 mg/dL (0.2-1.3)
[2018-08-13 07:48] LABS: Basophils # (A) 0.1 k/uL (0-0.2); Basophils % (A) 1 %; Eosinophils # (A) 0.1 k/uL (0-0.7); Eosinophils % (A) 1 %; HCT 37.2 % (39.0-53.0); HGB 11.3 gm/dL (13.0-17.5); Hypochromasia Slight; Lymphocytes # (A) 0.6 k/uL (1.0-4.8); Lymphocytes % (A) 11 %; MCH 30.2 pg (25.0-35.0); MCHC 30.5 g/dL (31.0-37.0); MCV 99.1 fL (80.0-100.0); Macrocytosis Slight; Mean Platelet Volume 9.5; Monocytes # (A) 0.6 k/uL (0-1.0); Monocytes % (A) 12 %; Neutrophils # (A) 3.6 k/uL (1.3-7.7); Neutrophils % (A) 72 %; Platelet Count 190 k/uL (150-450); RBC 3.75 m/uL (4.30-5.90); RDW 14.6 % (11.5-15.5); WBC 5.1 k/uL (3.8-10.6)
[2018-08-13] MEDS: CITALOPRAM HYDROBROMIDE 20 MG TAB PO SCH ×2 (08:31→20:28)
[2018-08-13] MEDS: FAMOTIDINE 20 MG TAB PO SCH (08:31)
[2018-08-13] MEDS: APIXABAN 2.5 MG TABLET PO SCH ×2 (08:31→20:28)
[2018-08-13] MEDS: DULoxetine HCL 30 MG CAPSULE.DR PO SCH (08:31)
[2018-08-13] MEDS: HYDROCORTISONE 10 MG TAB PO SCH ×2 (08:31→20:28)
[2018-08-13] MEDS: SACUBITRIL/VALSARTAN 49 MG-51 MG TABLET PO SCH ×2 (08:31→20:28)
[2018-08-13] MEDS: SPIRONOLACTONE 25 MG TAB PO SCH (08:31)
[2018-08-13] MEDS: TAMSULOSIN 0.4 MG CAP.ER.24H PO SCH (08:31)
[2018-08-13] MEDS: ALLOPURINOL 100 MG TAB PO SCH (08:31)
[2018-08-13] MEDS: MIDODRINE 5 MG TAB PO SCH ×3 (08:31→20:28)
[2018-08-13] MEDS: POTASSIUM CHLORIDE ER 20 MEQ TAB.ER PO SCH (08:32)
[2018-08-13] MEDS: ALBUTEROL NEBULIZED 2.5 MG/3 ML INHALATION PRN ×2 (08:40→21:29)
[2018-08-13] MEDS: BUDESONIDE 0.5 MG/2 ML NEBU INHALATION SCH ×2 (08:40→21:30)
[2018-08-13] MEDS ORDERED: FUROSEMIDE 80 MG TAB PO SCH (09:00)
[2018-08-13] MEDS ORDERED: SODIUM CHLORIDE 0.9% 1,000 ML IV SCH (10:15)
[2018-08-13] MEDS: oxyCODONE-APAP 7.5-325MG 1 EACH TAB PO PRN (11:23)
--- NOTE | 2018-08-13 11:31 | P.PN ---
Subjective Progress Note Date: 08/13/18 73-year-old male one of my office patient with multiple medical problem was known to have history of ischemic cardiopathy, CAD, CHF, COPD and A. jesús with RVR who has been seeing cardiology regular basis and was in the hospital recently for fluid overload and systolic with diastolic congestive he art failure was started on Entresto was in for follow up in the office was feeling well. Patient presented to the emergency department at [facility] today 5 pounds weight gain in the last 24 hours not a clear etiology has been taking his medication regularly. Patient was diagnosed with adrenal insufficiency and had improved been on Cortef and fludrocortisone as well. Patient was treated with IV diuretics his BMPs quite bit high chest x-ray significant for fluid overload and early pulmonary edema. Patient be hospitalized was start him on IV Lasix at drip and try to adjust his medication add spironolactone and maybe Zaroxolyn 18 to control his symptoms better without affecting his blood pressure. 08/11: Patient is continued on a Lasix drip as well as Aldactone 25 mg daily was added for this morning and Entresto dose was increased to 49/51 mg. He has had weight loss of 1-1/2 kg. Patient is complaining of nausea for which Zofran was added. Cardiology is on consult. Discussed discharge planning with option of palliative care which patient and at bedside are open to pursuing. Case management to follow-up. Patient has been afebrile, heart rate in the 90s, blood pressure 124/68 but ran low during the night. Pulse ox 90% on 3 L nasal cannula. Patient has ongoing concerns for depression and Cymbalta added to Celexa. 08/12: Patient has been afebrile, heart rate in the 70s to 90s, blood pressure 109/75, pulse ox 95% on 3 L nasal cannula. White count 6.1, hemoglobin 11.2. Sodium 137, potassium 4.7, chloride 97, CO2 33, BUN 46 and creatinine 2.64. Magnesium 1.9, total bilirubin 2.1, AST is increased to 114, ALT increased to 154 and alkaline phosphatase increased to 95. Repeat pro and be as 19,300. We will order liver ultrasound. IV Lasix will be discontinued and patient started on IV push Lasix 80 mg twice daily and plan to resume home dose at 80 mg orally twice daily tomorrow morning. Patient is having difficulty sleeping and according to his , he often takes a full dose of clonazepam at home for sleep. We will increase dose to 0.5 mg at bedtime as needed. 08/13: Patient has been afebrile, heart rate in the 90s to low 100, blood pressure 106/74, pulse ox 100% on room air. Hemoglobin 11.3, sodium 136, potassium 5.5, chloride 98, CO2 31, BUN 46 and creatinine 2.92. Patient states he is not feeling very well today mostly because his stomach is upset. He has lost 3 kg since admission. We will plan to hold oral Lasix today,stop potassium and Aldactone and start the patient on IV fluids at 75 mL per hour. We will plan to monitor the patient overnight and recheck electrolytes and renal function in the morning. Potassium recheck ordered for this afternoon. Review of Systems CONSTITUTIONAL: Denies fever, denies chills. Reports headache. EYES: No icterus sclerae, no conjunctivitis. EARS, NOSE, MOUTH, THROAT, and FACE: No sore throat, lymphadenopathy, carotid bruits or deformity. RESPIRATORY: Positive shortness of breath cough wheezes CARDIOVASCULAR: Positive PND orthopnea palpitation and angina. GASTROINTESTINAL: No Abd pain, reports nausea and vomiting, no Diarrhea or constipation, No GI Bleed, no distention or masses. GENITOURINARY: Negative for Hematuria or UTI, no kidney stones. INTEGUMENT/BREAST: Negative for any muscular injury with mild osteoarthritis.. HEMATOLOGIC/LYMPHATIC: Negative for bleed or purpura. MUSCULOSKELTAL: Negative for Myalgia or arthralgia. NEURLOGICAL: Mild dizziness with presyncope. BEHAVIORAL/PSYCH: Negative. Reports depression. Reports insomnia. ENDOCRINE: Negative. Objective - Vital Signs Vital signs: Vital Signs Temp 98.1 F 08/13/18 08:38 Pulse 102 H 08/13/18 08:55 Resp 18 08/13/18 08:38 BP 106/74 08/13/18 08:38 Pulse Ox 100 08/13/18 08:43 Intake & Output 08/12/18 08/13/18 08/13/18 18:59 06:59 18:59 Intake Total 750 120 222 Output Total 1400 600 Balance -650 -480 222 Weight 68.3 kg Intake: IV 30 Invasive Line 1 30 Oral 720 120 222 Output: Urine 1400 600 Other: Voiding Method Urinal Urinal Urinal - Exam General Appearance: Alert, cooperative, no distress, appears stated age. Patient appears to be still somewhat uncomfortable Neck HEENT: Supple, no lymphadenopathy, no thyroid enlargement, no carotid bruits. Lungs: Clear to auscultation without crackles or wheezes no rhonchi, no deformity. Chest Wall: Decrease expansion with deep inspiration no tenderness and no deformity was found on exam, no costochondral pain or discomfort. Positive for rhonchi. Heart: irregular rate and rhythm, S1, S2 normal, positive S3 positive JVD with systolic murmur. Back: Symmetric, no curvature, ROM normal, no CVA tenderness. Abdomen: Soft, non-tender, bowel sounds active all four quadrants, no masses, no organomegaly. Extremities: no edema with slight discoloration from the knee down bilaterally. Pulses: 2+ and symmetric. Skin: Skin color, texture, tugor normal, no rashes or lesions. Neurologic: Alert oriented x3 cranial nerves II through XII intact, no motor deficit, no abnormal balance or gait. - Labs CBC & Chem 7: 08/13/18 07:06 08/13/18 07:06 Labs: Abnormal Lab Results - Last 24 Hours (Table) 08/13/18 08/13/18 Range/Units 07:06 07:06 RBC 3.75 L (4.30-5.90) m/uL Hgb 11.3 L (13.0-17.5) gm/dL Hct 37.2 L (39.0-53.0) % MCHC 30.5 L (31.0-37.0) g/dL Lymphocytes # 0.6 L (1.0-4.8) k/uL Sodium 136 L (137-145) mmol/L Potassium 5.5 H (3.5-5.1) mmol/L Carbon Dioxide 31 H (22-30) mmol/L BUN 46 H (9-20) mg/dL Creatinine 2.92 H (0.66-1.25) mg/dL Glucose 110 H (74-99) mg/dL Total Bilirubin 1.9 H (0.2-1.3) mg/dL AST 119 H (17-59) U/L ALT 182 H (21-72) U/L Total Protein 6.0 L (6.3-8.2) g/dL Albumin 3.1 L (3.5-5.0) g/dL Assessment and Plan Plan: 1 acute respiratory distress secondary to acute on chronic systolic heart failure, early pulmonary edema, COPD and fluid overload. Hold Lasix, potassium, Aldactone. Continue, Entresto, Coreg 3.125 mg twice daily. Cardiology consult. Continue nebulizer treatments 3 times daily as needed. Entresto doses been increased. 2 acute on chronic systolic heart failure. Continue as in #1. 3 atherosclerotic heart disease: With worsening symptoms on and off patient seen cardiology testing and heart cath is up-to-date at this point whether there is more event or change in troponin no need for any intervention. 4 acute kidney injury with chronic kidney disease III with slightly elevated creatinine and decline in GFR continue to watch his symptoms especially with the 2 much diuretics at this point. 5 COPD with mild exacerbation continue patient on DuoNeb and Pulmicort continue O2 try to keep his pulse ox above 90 percentile. 6 chronic atrial fibrillation: Patient remain on amiodarone and Eliquis along with beta emile. 7 BPH: Remain on tamsulosin and Proscar. 8 adrenal insufficiency: Remain on Cortef and Florinef. 9 chronic anemia: No need for blood transfusion. 10 hyperlipidemia: Remain on lovastatin 40 mg daily. 11 hypothyroidism: Continue patient on levothyroxine when he 5 g daily. 12. Recurrent depression and mild anxiety attacks. Continue Celexa 20 mg twice daily, Klonopin 0.25 mg at bedtime and Cymbalta 30 mg daily added. 13. DVT prophylaxis. Continue eliquis. 14. GI prophylaxis. Pepcid. CODE STATUS: Full code. Discharge diagnoses: Home with [facility] with palliative care tomorrow Impression and plan of care have been directed as dictated by the signing physician. Luma Mancera nurse practitioner acting as scribe for signing physician.
--- NOTE | 2018-08-13 12:27 | P.PN ---
Subjective Progress Note Date: 08/13/18 This is a pleasant 73-year-old gentleman admitted to the hospital with exacerbation of systolic congestive heart failure.he was initiated on IV Lasix drip yesterday, overall feels significantly better today. His blood pressure is 115/80 with a heart rate in the 70s, 96% on 3 L of oxygen.White blood cell count 6.1, hemoglobin 11.2, platelet count 147. Sodium 137, potassium 4.7, BUN 46 and creatinine 2.6.BNP level 19,300.IV Lasix drip was discontinued today and patient was changed over to 80 mg IV twice a day. Plan is for progression to oral diuretics in the morning and possible discharge home tomorrow if stable. 08/13/2018 Patient seen and examined this morning, blood pressure 106/70 with a heart rate in the 90s today. Afebrile, 100% on room air. Hemoglobin 11.3, sodium 136, potassium 5.5, BUN 46 and creatinine 2.9. Overall the patient states she's not feeling well, has some mild stomach upset today. His weight is down 3 kg from admission. Oral diuretics will be held today and potassium will be discontinued along with the Aldactone, patient will receive IV fluids until tomorrow morning and plan for possible discharge tomorrow if stable. His electrolytes will be repeated in the morning and potassium rechecked this afternoon. Objective - Vital Signs Vital signs: Vital Signs Temp 98.1 F 08/13/18 08:38 Pulse 102 H 08/13/18 08:55 Resp 18 08/13/18 08:38 BP 106/74 08/13/18 08:38 Pulse Ox 100 08/13/18 08:43 Intake & Output 08/12/18 08/13/18 08/13/18 18:59 06:59 18:59 Intake Total 750 120 222 Output Total 1400 600 Balance -650 -480 222 Weight 68.3 kg Intake: IV 30 Invasive Line 1 30 Oral 720 120 222 Output: Urine 1400 600 Other: Voiding Method Urinal Urinal Urinal - Exam General Appearance: Alert, cooperative, no distress, appears stated age. Patient's is at bedside. Neck HEENT: Supple, no lymphadenopathy, no thyroid enlargement, no carotid bruits. Lungs: Clear to auscultation without crackles or wheezes no rhonchi, no deformity. Chest Wall: Decrease expansion with deep inspiration no tenderness and no deformity was found on exam, no costochondral pain or discomfort. Positive for rhonchi. Heart: irregular rate and rhythm, S1, S2 normal, positive S3 positive JVD with systolic murmur. Back: Symmetric, no curvature, ROM normal, no CVA tenderness. Abdomen: Soft, non-tender, bowel sounds active all four quadrants, no masses, no organomegaly. Extremities: Trace edema with slight discoloration from the knee down bilaterally. Pulses: 2+ and symmetric. Skin: Skin color, texture, tugor normal, no rashes or lesions. Neurologic: Alert oriented x3 cranial nerves II through XII intact, no motor deficit, no abnormal balance or gait. - Labs CBC & Chem 7: 08/13/18 07:06 08/13/18 07:06 Labs: Abnormal Lab Results - Last 24 Hours (Table) 08/13/18 08/13/18 Range/Units 07:06 07:06 RBC 3.75 L (4.30-5.90) m/uL Hgb 11.3 L (13.0-17.5) gm/dL Hct 37.2 L (39.0-53.0) % MCHC 30.5 L (31.0-37.0) g/dL Lymphocytes # 0.6 L (1.0-4.8) k/uL Sodium 136 L (137-145) mmol/L Potassium 5.5 H (3.5-5.1) mmol/L Carbon Dioxide 31 H (22-30) mmol/L BUN 46 H (9-20) mg/dL Creatinine 2.92 H (0.66-1.25) mg/dL Glucose 110 H (74-99) mg/dL Total Bilirubin 1.9 H (0.2-1.3) mg/dL AST 119 H (17-59) U/L ALT 182 H (21-72) U/L Total Protein 6.0 L (6.3-8.2) g/dL Albumin 3.1 L (3.5-5.0) g/dL Assessment and Plan Plan: assessment and plan 1 acute respiratory distress secondary to acute on chronic systolic heart failure, early pulmonary edema, COPD and fluid overload. 2 acute on chronic systolic heart failure. 3 atherosclerotic heart disease 4 acute kidney injury with chronic kidney disease III 5 COPD with mild exacerbation 6 chronic atrial fibrillation 7 BPH: 8 adrenal insufficiency 9 chronic anemia 10 hyperlipidemia 11 hypothyroidism 12. Recurrent depression and mild anxiety attacks plan Aldactone and potassium have been held today. Oral Lasix has also been placed on hold today. Patient is currently receiving IV fluids at 75 an hour, we will check potassium again later this evening as well as electrolytes and renal function again in the morning. DNP note has been reviewed, I agree with a documented findings and plan of care. Patient was seen and examined.
[2018-08-13] MEDS: ATORVASTATIN 10 MG TAB PO SCH (20:28)
[2018-08-13] MEDS: clonazePAM 0.5 MG TAB PO SCH (20:28)
[2018-08-14] MEDS: LEVOTHYROXINE 25 MCG TAB PO SCH (06:46)
[2018-08-14] MEDS: CARVEDILOL 3.125 MG TAB PO SCH ×2 (06:47→17:50)
[2018-08-14 07:21] LABS: Calcium 8.7 mg/dL (8.4-10.2); Potassium 4.9 mmol/L (3.5-5.1)
[2018-08-14] MEDS: DULoxetine HCL 30 MG CAPSULE.DR PO SCH (08:37)
[2018-08-14] MEDS: CITALOPRAM HYDROBROMIDE 20 MG TAB PO SCH ×2 (08:37→20:25)
[2018-08-14] MEDS: HYDROCORTISONE 10 MG TAB PO SCH ×2 (08:37→20:26)
[2018-08-14] MEDS: FAMOTIDINE 20 MG TAB PO SCH (08:37)
[2018-08-14] MEDS: ALLOPURINOL 100 MG TAB PO SCH (08:37)
[2018-08-14] MEDS: APIXABAN 2.5 MG TABLET PO SCH ×2 (08:37→20:24)
[2018-08-14] MEDS: SACUBITRIL/VALSARTAN 49 MG-51 MG TABLET PO SCH (08:38)
[2018-08-14] MEDS: MIDODRINE 5 MG TAB PO SCH ×3 (08:38→22:26)
[2018-08-14] MEDS: ALBUTEROL NEBULIZED 2.5 MG/3 ML INHALATION PRN (09:06)
[2018-08-14] MEDS: BUDESONIDE 0.5 MG/2 ML NEBU INHALATION SCH ×2 (09:06→20:45)
[2018-08-14] MEDS: oxyCODONE-APAP 7.5-325MG 1 EACH TAB PO PRN (10:28)
[2018-08-14] MEDS: ONDANSETRON 4 MG/2 ML VIAL IVP PRN (11:21)
[2018-08-14] MEDS: SUCRALFATE 1 GM TAB PO SCH ×3 (12:28→20:26)
[2018-08-14] MEDS: SCOPOLAMINE 1.5MG/72HR PATCH TRANSDERM SCH (12:28)
--- NOTE | 2018-08-14 12:28 | P.NPCON ---
History of Present Illness - Reason for Consult acute renal failure - History of Present Illness Reason for consultation: Acute kidney injury History of present illness: Patient is a 73-year-old male seen in renal consultation for acute kidney injury. Patient's creatinine in March 2018 was near 1.3. Recently spent in the range of 1.8-2.4. Today his creatinine is up to 3.11. Patient presented to the hospital with dyspnea. He was noted to have congestive and chest x-ray. He was also noted to have ascites. Patient has systolic CHF with ejection fraction of 20-25% with severe mitral regurgitation and moderate tricuspid regurgitation. He was receiving IV diuretics but due to worsening renal function they were discontinued today. Oral intake is fair. Good urine output. No vomiting or diarrhea. No history of diabetes. Denies use of nonsteroidals. Edema has improved since admission. Hemodynamically stable. Vital signs are stable. General: The patient appeared well nourished and normally developed. HEENT: Head exam is unremarkable. Neck is without jugular venous distension. LUNGS: Lungs are clear to auscultation and percussion. Breath sounds decreased. HEART: Rate and Rhythm are regular. First and second heart sounds normal. No murmurs, rubs or gallops. ABDOMEN: Abdominal exam reveals normal bowel sounds. Non-tender and non- distended. No evidence of peritonitis. EXTREMITITES: Trace edema. Past Medical History Past Medical History: Atrial Fibrillation, Heart Failure, CVA/TIA, GERD/Reflux, Hearing Disorder / Deafness, Hyperlipidemia, Hypertension, Memory Impairment, Myocardial Infarction ([place]), Osteoarthritis (OA), Prostate Disorder, Respiratory Disorder, Thyroid Disorder Additional Past Medical History / Comment(s): stroke behind rt eye-poor vision, macular degeneration harris eyes, migraine & cluster headaches,, NY's x 2 ( age unknown), cardiomyopathy, hole in stomach from excedrin -it caused aspiration after which he was in an induced coma and on a ventilator for 9 days, sarcoidosis of lungs, abdominal and stomach pain, frequent diarrhea, several head injuries as a child, arthiritis bilateral knees and hips, multiple lipomas, kidney stones, enlarged prostate. Last Myocardial Infarction Date:: unknown History of Any Multi-Drug Resistant Organisms: MRSA Date of last positivie culture/infection: 08/15/09 MDRO Source:: LUNGS Past Surgical History: AICD, Bowel Resection, Heart Catheterization With Stent, Hernia Repair, Orthopedic Surgery, Pacemaker, Prostate Surgery, Tonsillectomy Additional Past Surgical History / Comment(s): 12/28/14 Lap jose fundoplasty with mesh and lap lysis of adhesions. Other SX: AICD 2009 with replacement 08/2013 (medtronic), 1995 bowel resection d/t perforation with colostomy with eventual reversal of colostomy, 2009-surgery for "hole in stomach", 2007 blephoplasty bilaterally, 2001 deviated septum, 2003 TURP, 1975 vasectomy, 02/2013 R rotator cuff, surgery on "head" due to injuries, numerous lipoma removals-4 from L leg, 05/2014, 08/2013 EGD for removal of dentist spray nozzle, 1955 [facility] surgery at [facility] , 1975 vasectomy, lithrotripsy, bilateral inquinal hernia repairs with R side done x3, cardiac caths with stents Past Anesthesia/Blood Transfusion Reactions: Postoperative Nausea & Vomiting (PONV) Additional Past Anesthesia/Blood Transfusion Reaction / Comment(s): Pt has never recieved blood Date of Last Stent Placement:: 2007 Type of Cardiac Device: AICD Device Placement Date:: 08/2013 Medtronic Past Psychological History: Anxiety, Depression Additional Psychological History / Comment(s): Pt resides with his spouse of 48yrs. He is independent. He uses no assistive devices or home care. He knows how to drive but lately has'nt d/t medical problems- drives . He has depression due mostly to his multiple medical problems.- no thoughts of wanting to harm self Smoking Status: Former smoker Past Alcohol Use History: Heavy Additional Past Alcohol Use History / Comment(s): Pt started smoking about 1951 and quit in 1981. a pack would last 1.5 days. quit drinking 1969 Past Drug Use History: None Reported - Past Family History Brother(s) Family Medical History: Cancer Additional Family Medical History / Comment(s): Patient has 2 brothers that are both alive. One has history of prostate cancer. Father Family Medical History: Renal Disease, Respiratory Disorder Additional Family Medical History / Comment(s): Father at age 75 from renal failure. Mother Family Medical History: Coronary Artery Disease (CAD), Dementia Additional Family Medical History / Comment(s): Mother at age 94 from A lzheimer dementia. Sister(s) Family Medical History: Osteoarthritis (OA) Additional Family Medical History / Comment(s): Patient has one sister with osteoarthritis. Medications and Allergies Home Medications Medication Instructions Recorded Confirmed Type Dicyclomine [Bentyl] 20 mg PO AC-TID PRN 10/27/13 08/10/18 History Lovastatin [Mevacor] 40 mg PO HS 10/27/13 08/10/18 History Citalopram Hydrobromide 20 mg PO BID 03/27/16 08/10/18 History [Citalopram HBr] Levothyroxine Sodium [Synthroid] 25 mcg PO DAILY 03/27/16 08/10/18 History Hydrocortisone [Cortef] 10 mg PO BID #0 04/08/18 08/10/18 Rx Sacubitril/Valsartan [Entresto 24 1 tab PO BID 04/24/18 08/10/18 History mg-26 mg Tablet] Carvedilol [Coreg] 3.125 mg PO BID 05/06/18 08/10/18 History clonazePAM 0.25 mg PO HS 05/06/18 08/10/18 History Midodrine HCl [ProAmatine] 10 mg PO TID #0 05/10/18 08/10/18 Rx Albuterol Sulfate [Proair Hfa] 2 puff INHALATION RT-TID PRN 07/15/18 08/10/18 History Allopurinol [Zyloprim] 100 mg PO DAILY 07/15/18 08/10/18 History Amiodarone [Cordarone] 200 mg PO DAILY 07/15/18 08/10/18 History Eylea 2mg/O.05ml 1 injection RIGHT EYE Q42D 07/15/18 08/10/18 History Finasteride [Proscar] 5 mg PO Q48H 07/15/18 08/10/18 History Tamsulosin HCl [Flomax] 0.4 mg PO Q48H 07/15/18 08/10/18 History Apixaban [Eliquis] 2.5 mg PO BID #60 tab 07/19/18 08/10/18 Rx Furosemide [Lasix] 80 mg PO BID@0900,1600 #60 tab 07/23/18 08/10/18 Rx Fludrocortisone [Florinef] 0.1 mg PO BID 08/10/18 08/10/18 History Potassium Chloride ER [K-Dur 20] 20 meq PO TID 08/10/18 08/10/18 History Allergies Allergy/AdvReac Type Severity Reaction Status Date / Time Iodinated Contrast- Oral and Allergy Rash/Hives Verified 08/10/18 14:14 IV Dye [Iodinated Contrast Media - IV Dye] nitroglycerin Allergy passed out Verified 08/10/18 14:14 adhesive AdvReac SKIN TURNS Verified 08/10/18 14:14 RED piperacillin sodium AdvReac Confusion Verified 08/10/18 14:14 [From Zosyn] tazobactam sodium AdvReac Confusion Verified 08/10/18 14:14 [From Zosyn] Physical Exam Vitals: Vital Signs Temp Pulse Pulse Resp BP BP Pulse Ox 08/14/18 09:17 96 08/14/18 09:06 92 08/14/18 08:00 97.5 F L 87 18 103/73 97 08/14/18 03:39 86 17 99/73 93 L 08/14/18 00:00 85 16 91/60 93 L 08/13/18 21:42 100 08/13/18 21:30 96 08/13/18 20:00 86 16 99/73 94 L 08/13/18 16:00 97.8 F 88 18 113/79 96 Intake and Output 08/13/18 08/14/18 08/14/18 22:59 06:59 14:59 Intake Total 360 Output Total 650 250 400 Balance -650 -250 -40 Intake: Oral 360 Output: Urine 650 250 400 Other: Voiding Method Urinal Urinal # Voids 2 Weight 70.1 kg Results - Lab Results Most recent lab results Calcium 8.7 mg/dL (8.4-10.2) 08/14/18 06:49 Magnesium 1.9 mg/dL (1.6-2.3) 08/12/18 06:18 08/13/18 07:06 08/14/18 06:49 Assessment and Plan Plan: Assessment: 1. Acute kidney injury mostly prerenal secondary to cardiorenal syndrome. Creatinine 3.11 today. 2. Chronic kidney disease stage III. Creatinine March 2018 was 1.3. Recently his been higher in the range of 1.8-2.4. 3. Dyspnea secondary to volume overload. 4. Systolic CHF with ejection fraction of 20-25% with severe mitral regurgitation and moderate tricuspid regurgitation. Plan: Agree with holding diuretics today. No need for IV fluids. Low-salt diet. 1500 mL fluid restriction. Repeat electrolyyes the morning. Thank you for the consultation. I will continue to follow the patient with you during his hospital stay.
--- NOTE | 2018-08-14 13:53 | P.PN ---
Subjective Progress Note Date: 08/14/18 This is a pleasant 73-year-old gentleman admitted to the hospital with exacerbation of systolic congestive heart failure.he was initiated on IV Lasix drip yesterday, overall feels significantly better today. His blood pressure is 115/80 with a heart rate in the 70s, 96% on 3 L of oxygen.White blood cell count 6.1, hemoglobin 11.2, platelet count 147. Sodium 137, potassium 4.7, BUN 46 and creatinine 2.6.BNP level 19,300.IV Lasix drip was discontinued today and patient was changed over to 80 mg IV twice a day. Plan is for progression to oral diuretics in the morning and possible discharge home tomorrow if stable. 08/13/2018 Patient seen and examined this morning, blood pressure 106/70 with a heart rate in the 90s today. Afebrile, 100% on room air. Hemoglobin 11.3, sodium 136, potassium 5.5, BUN 46 and creatinine 2.9. Overall the patient states she's not feeling well, has some mild stomach upset today. His weight is down 3 kg from admission. Oral diuretics will be held today and potassium will be discontinued along with the Aldactone, patient will receive IV fluids until tomorrow morning and plan for possible discharge tomorrow if stable. His electrolytes will be repeated in the morning and potassium rechecked this afternoon. 08/14/2018 Patient was seen and examined this morning, overall feeling well, denies any shortness of breath, no dizziness or lightheadedness. His renal function however continues to worsen and for this reason and nephrology consultation is been requested.sodium today 135, potassium 4.9, BUN 51 and creatinine 3.1.blood pressure 103/73, heart rate in the 90s, 97% on 3 L of oxygen. Objective - Vital Signs Vital signs: Vital Signs Temp 97.5 F L 08/14/18 08:00 Pulse 96 08/14/18 09:17 Resp 18 08/14/18 08:00 BP 103/73 08/14/18 08:00 Pulse Ox 97 08/14/18 08:00 Intake & Output 08/13/18 08/14/18 08/14/18 18:59 06:59 18:59 Intake Total 222 360 Output Total 1200 900 400 Balance -978 -900 -40 Weight 70.1 kg Intake: Oral 222 360 Output: Urine 1200 900 400 Other: Voiding Method Urinal Urinal Urinal # Voids 2 - Exam General Appearance: Alert, cooperative, no distress, appears stated age. Patient's is at bedside. Neck HEENT: Supple, no lymphadenopathy, no thyroid enlargement, no carotid bruits. Lungs: Clear to auscultation without crackles or wheezes no rhonchi, no deformity. Chest Wall: Decrease expansion with deep inspiration no tenderness and no deformity was found on exam, no costochondral pain or discomfort. Heart: irregular rate and rhythm, S1, S2 normal, positive S3 positive JVD with systolic murmur. Back: Symmetric, no curvature, ROM normal, no CVA tenderness. Abdomen: Soft, non-tender, bowel sounds active all four quadrants, no masses, no organomegaly. Extremities: Trace edema with slight discoloration from the knee down bilaterally. Pulses: 2+ and symmetric. Skin: Skin color, texture, tugor normal, no rashes or lesions. Neurologic: Alert oriented x3 cranial nerves II through XII intact, no motor deficit, no abnormal balance or gait. - Labs CBC & Chem 7: 08/13/18 07:06 08/14/18 06:49 Labs: Abnormal Lab Results - Last 24 Hours (Table) 08/14/18 Range/Units 06:49 Sodium 135 L (137-145) mmol/L Chloride 96 L (98-107) mmol/L Carbon Dioxide 32 H (22-30) mmol/L BUN 51 H (9-20) mg/dL Creatinine 3.11 H (0.66-1.25) mg/dL Assessment and Plan Plan: assessment and plan 1 acute respiratory distress secondary to acute on chronic systolic heart failure, early pulmonary edema, COPD and fluid overload. 2 acute on chronic systolic heart failure. 3 atherosclerotic heart disease 4 acute kidney injury with chronic kidney disease III 5 COPD with mild exacerbation 6 chronic atrial fibrillation 7 BPH: 8 adrenal insufficiency 9 chronic anemia 10 hyperlipidemia 11 hypothyroidism 12. Recurrent depression and mild anxiety attacks Plan Renal function today is up to 3.1. From cardiology's perspective, we would recommend to continue with current medications. Nephrology consultation has been requested. DNP note has been reviewed, I agree with a documented findings and plan of care. Patient was seen and examined.
[2018-08-14] MEDS: ALPRAZolam 0.25 MG TAB PO PRN (14:24)
--- NOTE | 2018-08-14 14:47 | P.PN ---
Subjective Progress Note Date: 08/14/18 73-year-old male one of my office patient with multiple medical problem was known to have history of ischemic cardiopathy, CAD, CHF, COPD and A. jesús with RVR who has been seeing cardiology regular basis and was in the hospital recently for fluid overload and systolic with diastolic congestive he art failure was started on Entresto was in for follow up in the office was feeling well. Patient presented to the emergency department at [facility] today 5 pounds weight gain in the last 24 hours not a clear etiology has been taking his medication regularly. Patient was diagnosed with adrenal insufficiency and had improved been on Cortef and fludrocortisone as well. Patient was treated with IV diuretics his BMPs quite bit high chest x-ray significant for fluid overload and early pulmonary edema. Patient be hospitalized was start him on IV Lasix at drip and try to adjust his medication add spironolactone and maybe Zaroxolyn 18 to control his symptoms better without affecting his blood pressure. 08/11: Patient is continued on a Lasix drip as well as Aldactone 25 mg daily was added for this morning and Entresto dose was increased to 49/51 mg. He has had weight loss of 1-1/2 kg. Patient is complaining of nausea for which Zofran was added. Cardiology is on consult. Discussed discharge planning with option of palliative care which patient and at bedside are open to pursuing. Case management to follow-up. Patient has been afebrile, heart rate in the 90s, blood pressure 124/68 but ran low during the night. Pulse ox 90% on 3 L nasal cannula. Patient has ongoing concerns for depression and Cymbalta added to Celexa. 08/12: Patient has been afebrile, heart rate in the 70s to 90s, blood pressure 109/75, pulse ox 95% on 3 L nasal cannula. White count 6.1, hemoglobin 11.2. Sodium 137, potassium 4.7, chloride 97, CO2 33, BUN 46 and creatinine 2.64. Magnesium 1.9, total bilirubin 2.1, AST is increased to 114, ALT increased to 154 and alkaline phosphatase increased to 95. Repeat pro and be as 19,300. We will order liver ultrasound. IV Lasix will be discontinued and patient started on IV push Lasix 80 mg twice daily and plan to resume home dose at 80 mg orally twice daily tomorrow morning. Patient is having difficulty sleeping and according to his , he often takes a full dose of clonazepam at home for sleep. We will increase dose to 0.5 mg at bedtime as needed. 08/13: Patient has been afebrile, heart rate in the 90s to low 100, blood pressure 106/74, pulse ox 100% on room air. Hemoglobin 11.3, sodium 136, potassium 5.5, chloride 98, CO2 31, BUN 46 and creatinine 2.92. Patient states he is not feeling very well today mostly because his stomach is upset. He has lost 3 kg since admission. We will plan to hold oral Lasix today,stop potassium and Aldactone and start the patient on IV fluids at 75 mL per hour. We will plan to monitor the patient overnight and recheck electrolytes and renal function in the morning. Potassium recheck ordered for this afternoon. 08/14: Repeat potassium yesterday afternoon was 5 and this morning 4.9, BUN 51 and creatinine 3.11. Discharge plan for today will be held and consult with nephrology added. Patient continues to complain of nausea and states that his nerves are really bad today. We have added and Carafate and scopolamine patch as well as low dose Xanax. Entresto dose decreased to 24/26 mg. Plan to monitor renal function and possible discharge the next 48 hours. Review of Systems CONSTITUTIONAL: Denies fever, denies chills. Reports headache. EYES: No icterus sclerae, no conjunctivitis. EARS, NOSE, MOUTH, THROAT, and FACE: No sore throat, lymphadenopathy, carotid bruits or deformity. RESPIRATORY: Positive shortness of breath cough wheezes CARDIOVASCULAR: Positive PND orthopnea palpitation and angina. GASTROINTESTINAL: No Abd pain, reports nausea and vomiting, no Diarrhea or constipation, No GI Bleed, no distention or masses. GENITOURINARY: Negative for Hematuria or UTI, no kidney stones. INTEGUMENT/BREAST: Negative for any muscular injury with mild osteoarthritis.. HEMATOLOGIC/LYMPHATIC: Negative for bleed or purpura. MUSCULOSKELTAL: Negative for Myalgia or arthralgia. NEURLOGICAL: Mild dizziness with presyncope. BEHAVIORAL/PSYCH: Negative. Reports depression. Reports insomnia. Reports anxiety. ENDOCRINE: Negative. Objective - Vital Signs Vital signs: Vital Signs Temp 97.5 F L 08/14/18 08:00 Pulse 96 08/14/18 09:17 Resp 18 08/14/18 08:00 BP 103/73 08/14/18 08:00 Pulse Ox 97 08/14/18 08:00 Intake & Output 08/13/18 08/14/18 08/14/18 18:59 06:59 18:59 Intake Total 222 360 Output Total 1200 900 Balance -978 -900 360 Weight 70.1 kg Intake: Oral 222 360 Output: Urine 1200 900 Other: Voiding Method Urinal Urinal Urinal - Exam General Appearance: Alert, cooperative, no distress, appears stated age. Patient appears to be somewhat uncomfortable. Patient's is at bedside. Neck HEENT: Supple, no lymphadenopathy, no thyroid enlargement, no carotid bruits. Lungs: Clear to auscultation without crackles or wheezes no rhonchi, no defo rmity. Chest Wall: Decrease expansion with deep inspiration no tenderness and no deformity was found on exam, no costochondral pain or discomfort. Positive for rhonchi. Heart: irregular rate and rhythm, S1, S2 normal, positive S3 positive JVD with systolic murmur. Back: Symmetric, no curvature, ROM normal, no CVA tenderness. Abdomen: Soft, non-tender, bowel sounds active all four quadrants, no masses, no organomegaly. Extremities: no edema with slight discoloration from the knee down bilaterally. Pulses: 2+ and symmetric. No pedal edema. Skin: Skin color, texture, tugor normal, no rashes or lesions. Neurologic: Alert oriented x3 cranial nerves II through XII intact, no motor deficit, no abnormal balance or gait. - Labs CBC & Chem 7: 08/13/18 07:06 08/14/18 06:49 Labs: Abnormal Lab Results - Last 24 Hours (Table) 08/14/18 Range/Units 06:49 Sodium 135 L (137-145) mmol/L Chloride 96 L (98-107) mmol/L Carbon Dioxide 32 H (22-30) mmol/L BUN 51 H (9-20) mg/dL Creatinine 3.11 H (0.66-1.25) mg/dL Assessment and Plan Plan: 1 acute respiratory distress secondary to acute on chronic systolic heart failure, early pulmonary edema, COPD and fluid overload. Hold Lasix, potassium, Aldactone. Continue, Entresto, Coreg 3.125 mg twice daily. Cardiology consult. Continue nebulizer treatments 3 times daily as needed. Entresto doses been increased. 2 acute on chronic systolic heart failure. Continue as in #1. 3 atherosclerotic heart disease: With worsening symptoms on and off patient seen cardiology testing and heart cath is up-to-date at this point whether there is more event or change in troponin no need for any intervention. 4 acute kidney injury with chronic kidney disease III. Consult with nephrology added. We have discontinued Lasix, spironolactone, potassium, decreased Entresto. Patient received 1 L of IV fluid yesterday. 5 COPD with mild exacerbation continue patient on DuoNeb and Pulmicort continue O2 try to keep his pulse ox above 90 percentile. 6 chronic atrial fibrillation: Patient remain on amiodarone and Eliquis along with beta emile. 7 BPH: Remain on tamsulosin and Proscar. 8 adrenal insufficiency: Remain on Cortef and Florinef. 9 chronic anemia: No need for blood transfusion. 10 hyperlipidemia: Remain on lovastatin 40 mg daily. 11 hypothyroidism: Continue patient on levothyroxine when he 5 g daily. 12. Recurrent depression and mild anxiety attacks. Continue Celexa 20 mg twice daily, Klonopin 0.25 mg at bedtime and Cymbalta 30 mg daily added. Xanax 0.25 mg twice daily as needed added 13. DVT prophylaxis. Continue eliquis. 14. GI prophylaxis. Pepcid. 15. Nausea. Continue Zofran 4 mg IV every 6 hours as needed. Scopolamine patch added, Carafate 1 g before meals and at bedtime added. CODE STATUS: Full code. Discharge plan: Home with [facility] with palliative care in 48 hours. Impression and plan of care have been directed as dictated by the signing physician. Luma Mancera nurse practitioner acting as scribe for signing physician.
[2018-08-14] MEDS: FINASTERIDE 5 MG TAB PO SCH (17:50)
[2018-08-14] MEDS: ATORVASTATIN 10 MG TAB PO SCH (20:24)
[2018-08-14] MEDS: clonazePAM 0.5 MG TAB PO SCH (20:25)
[2018-08-14] MEDS: SACUBITRIL/VALSARTAN 24 MG-26 MG TABLET PO SCH (20:26)
[2018-08-15] MEDS: CARVEDILOL 3.125 MG TAB PO SCH ×2 (06:17→18:13)
[2018-08-15] MEDS: SUCRALFATE 1 GM TAB PO SCH ×4 (06:17→20:00)
[2018-08-15] MEDS: LEVOTHYROXINE 25 MCG TAB PO SCH (06:17)
[2018-08-15] MEDS: FAMOTIDINE 20 MG TAB PO SCH (08:30)
[2018-08-15] MEDS: CITALOPRAM HYDROBROMIDE 20 MG TAB PO SCH ×2 (08:30→20:00)
[2018-08-15] MEDS: ALLOPURINOL 100 MG TAB PO SCH (08:30)
[2018-08-15] MEDS: HYDROCORTISONE 10 MG TAB PO SCH ×2 (08:30→20:00)
[2018-08-15] MEDS: DULoxetine HCL 30 MG CAPSULE.DR PO SCH (08:30)
[2018-08-15] MEDS: SACUBITRIL/VALSARTAN 24 MG-26 MG TABLET PO SCH (08:30)
[2018-08-15] MEDS: MIDODRINE 5 MG TAB PO SCH ×3 (08:30→23:36)
[2018-08-15] MEDS: TAMSULOSIN 0.4 MG CAP.ER.24H PO SCH (08:30)
[2018-08-15] MEDS: APIXABAN 2.5 MG TABLET PO SCH ×2 (08:30→20:00)
[2018-08-15] MEDS: BUDESONIDE 0.5 MG/2 ML NEBU INHALATION SCH ×2 (11:03→20:59)
--- NOTE | 2018-08-15 11:09 | P.PN ---
Subjective Progress Note Date: 08/15/18 This is a pleasant 73-year-old gentleman admitted to the hospital with exacerbation of systolic congestive heart failure.he was initiated on IV Lasix drip yesterday, overall feels significantly better today. His blood pressure is 115/80 with a heart rate in the 70s, 96% on 3 L of oxygen.White blood cell count 6.1, hemoglobin 11.2, platelet count 147. Sodium 137, potassium 4.7, BUN 46 and creatinine 2.6.BNP level 19,300.IV Lasix drip was discontinued today and patient was changed over to 80 mg IV twice a day. Plan is for progression to oral diuretics in the morning and possible discharge home tomorrow if stable. 08/13/2018 Patient seen and examined this morning, blood pressure 106/70 with a heart rate in the 90s today. Afebrile, 100% on room air. Hemoglobin 11.3, sodium 136, potassium 5.5, BUN 46 and creatinine 2.9. Overall the patient states she's not feeling well, has some mild stomach upset today. His weight is down 3 kg from admission. Oral diuretics will be held today and potassium will be discontinued along with the Aldactone, patient will receive IV fluids until tomorrow morning and plan for possible discharge tomorrow if stable. His electrolytes will be repeated in the morning and potassium rechecked this afternoon. 08/14/2018 Patient was seen and examined this morning, overall feeling well, denies any shortness of breath, no dizziness or lightheadedness. His renal function however continues to worsen and for this reason and nephrology consultation is been requested.sodium today 135, potassium 4.9, BUN 51 and creatinine 3.1.blood pressure 103/73, heart rate in the 90s, 97% on 3 L of oxygen. 08/15/2017 Patient was seen and examined this morning, complaints that he feeling extremely anxious, mild nausea. No laboratory data today. Breathing is overall stable. Blood pressure 104/70 with a heart rate in the 90s, 96% on room air. Objective - Vital Signs Vital signs: Vital Signs Temp 97.3 F L 08/15/18 08:00 Pulse 91 08/15/18 08:00 Resp 18 08/15/18 08:00 BP 104/75 08/15/18 08:00 Pulse Ox 96 08/15/18 08:00 Intake & Output 08/14/18 08/15/18 08/15/18 18:59 06:59 18:59 Intake Total 600 Output Total 400 400 Balance 200 -400 Weight 70.5 kg Intake: Oral 600 Output: Urine 400 400 Other: Voiding Method Urinal Urinal # Voids 2 - Exam General Appearance: Alert, cooperative, no distress, appears stated age. Patient's is at bedside. Neck HEENT: Supple, no lymphadenopathy, no thyroid enlargement, no carotid bruits. Lungs: Clear to auscultation without crackles or wheezes no rhonchi, no deformity. Chest Wall: Decrease expansion with deep inspiration no tenderness and no deformity was found on exam, no costochondral pain or discomfort. Heart: irregular rate and rhythm, S1, S2 normal, positive S3 positive JVD with systolic murmur. Back: Symmetric, no curvature, ROM normal, no CVA tenderness. Abdomen: Soft, non-tender, bowel sounds active all four quadrants, no masses, no organomegaly. Extremities: Trace edema with slight discoloration from the knee down bilaterally. Pulses: 2+ and symmetric. Skin: Skin color, texture, tugor normal, no rashes or lesions. Neurologic: Alert oriented x3 cranial nerves II through XII intact, no motor deficit, no abnormal balance or gait. - Labs CBC & Chem 7: 08/13/18 07:06 08/14/18 06:49 Assessment and Plan Plan: assessment and plan 1 acute respiratory distress secondary to acute on chronic systolic heart failure, early pulmonary edema, COPD and fluid overload. 2 acute on chronic systolic heart failure. 3 atherosclerotic heart disease 4 acute kidney injury with chronic kidney disease III 5 COPD with mild exacerbation 6 chronic atrial fibrillation 7 BPH: 8 adrenal insufficiency 9 chronic anemia 10 hyperlipidemia 11 hypothyroidism 12. Recurrent depression and mild anxiety attacks Plan We'll repeat lytes BUN and creatinine today. From cardiology's perspective we'll recommend to keep the patient on his current medications. Discharged once cleared by Dr. Mercado. DNP note has been reviewed, I agree with a documented findings and plan of care. Patient was seen and examined.
[2018-08-15] MEDS: ALPRAZolam 0.25 MG TAB PO PRN (11:14)
[2018-08-15 12:59] LABS: Calcium 8.9 mg/dL (8.4-10.2); Potassium 5.3 mmol/L (3.5-5.1)
--- NOTE | 2018-08-15 13:39 | P.PN ---
Subjective Progress Note Date: 08/15/18 73-year-old male one of my office patient with multiple medical problem was known to have history of ischemic cardiopathy, CAD, CHF, COPD and A. jesús with RVR who has been seeing cardiology regular basis and was in the hospital recently for fluid overload and systolic with diastolic congestive he art failure was started on Entresto was in for follow up in the office was feeling well. Patient presented to the emergency department at [facility] today 5 pounds weight gain in the last 24 hours not a clear etiology has been taking his medication regularly. Patient was diagnosed with adrenal insufficiency and had improved been on Cortef and fludrocortisone as well. Patient was treated with IV diuretics his BMPs quite bit high chest x-ray significant for fluid overload and early pulmonary edema. Patient be hospitalized was start him on IV Lasix at drip and try to adjust his medication add spironolactone and maybe Zaroxolyn 18 to control his symptoms better without affecting his blood pressure. 08/11: Patient is continued on a Lasix drip as well as Aldactone 25 mg daily was added for this morning and Entresto dose was increased to 49/51 mg. He has had weight loss of 1-1/2 kg. Patient is complaining of nausea for which Zofran was added. Cardiology is on consult. Discussed discharge planning with option of palliative care which patient and at bedside are open to pursuing. Case management to follow-up. Patient has been afebrile, heart rate in the 90s, blood pressure 124/68 but ran low during the night. Pulse ox 90% on 3 L nasal cannula. Patient has ongoing concerns for depression and Cymbalta added to Celexa. 08/12: Patient has been afebrile, heart rate in the 70s to 90s, blood pressure 109/75, pulse ox 95% on 3 L nasal cannula. White count 6.1, hemoglobin 11.2. Sodium 137, potassium 4.7, chloride 97, CO2 33, BUN 46 and creatinine 2.64. Magnesium 1.9, total bilirubin 2.1, AST is increased to 114, ALT increased to 154 and alkaline phosphatase increased to 95. Repeat pro and be as 19,300. We will order liver ultrasound. IV Lasix will be discontinued and patient started on IV push Lasix 80 mg twice daily and plan to resume home dose at 80 mg orally twice daily tomorrow morning. Patient is having difficulty sleeping and according to his , he often takes a full dose of clonazepam at home for sleep. We will increase dose to 0.5 mg at bedtime as needed. 08/13: Patient has been afebrile, heart rate in the 90s to low 100, blood pressure 106/74, pulse ox 100% on room air. Hemoglobin 11.3, sodium 136, potassium 5.5, chloride 98, CO2 31, BUN 46 and creatinine 2.92. Patient states he is not feeling very well today mostly because his stomach is upset. He has lost 3 kg since admission. We will plan to hold oral Lasix today,stop potassium and Aldactone and start the patient on IV fluids at 75 mL per hour. We will plan to monitor the patient overnight and recheck electrolytes and renal function in the morning. Potassium recheck ordered for this afternoon. 08/14: Repeat potassium yesterday afternoon was 5 and this morning 4.9, BUN 51 and creatinine 3.11. Discharge plan for today will be held and consult with nephrology added. Patient continues to complain of nausea and states that his nerves are really bad today. We have added and Carafate and scopolamine patch as well as low dose Xanax. Entresto dose decreased to 24/26 mg. Plan to monitor renal function and possible discharge the next 48 hours. 08/15: Repeat lab work reveals sodium 134, potassium 5.3, chloride 95, CO2 34, BUN 57 creatinine 3.34. Patient was seen by Dr. Frey yesterday with recommendations to continue to hold current medications. No plan for IV fluids. Patient is quite confused this morning. His states he has only slept about 10 4 hours since his admission on Friday. Also she noticed that he has not urinated since she arrived. Nursing to check bladder scan and monitor I&O's. Patient has been afebrile, heart rate in the 60s to 90s, blood pressure 107/54, pulse ox 94% on room air. Patient was scheduled for discharge today w [facility] will be held. Review of Systems CONSTITUTIONAL: Denies fever, denies chills. Reports headache. EYES: No icterus sclerae, no conjunctivitis. EARS, NOSE, MOUTH, THROAT, and FACE: No sore throat, lymphadenopathy, carotid bruits or deformity. RESPIRATORY: Positive shortness of breath cough wheezes CARDIOVASCULAR: Positive PND orthopnea palpitation and angina. GASTROINTESTINAL: No Abd pain, reports nausea and vomiting, no Diarrhea or constipation, No GI Bleed, no distention or masses. GENITOURINARY: Negative for Hematuria or UTI, no kidney stones. INTEGUMENT/BREAST: Negative for any muscular injury with mild osteoarthritis.. HEMATOLOGIC/LYMPHATIC: Negative for bleed or purpura. MUSCULOSKELTAL: Negative for Myalgia or arthralgia. NEURLOGICAL: Mild dizziness with presyncope. Reports confusion BEHAVIORAL/PSYCH: Negative. Reports depression. Reports insomnia. Reports anxiety. ENDOCRINE: Negative. Objective - Vital Signs Vital signs: Vital Signs Temp 97.3 F L 08/15/18 08:00 Pulse 92 08/15/18 11:40 Resp 18 08/15/18 11:40 BP 107/54 08/15/18 11:40 Pulse Ox 94 L 08/15/18 11:40 Intake & Output 08/14/18 08/15/18 08/15/18 18:59 06:59 18:59 Intake Total 600 Output Total 400 400 Balance 200 -400 Weight 70.5 kg Intake: Oral 600 Output: Urine 400 400 Other: Voiding Method Urinal Urinal # Voids 2 - Exam General Appearance: Alert, cooperative, no distress, appears stated age. Patient's is at bedside. Neck HEENT: Supple, no lymphadenopathy, no thyroid enlargement, no carotid bruits. Lungs: Clear to auscultation without crackles or wheezes no rhonchi, no deformity. Chest Wall: Decrease expansion with deep inspiration no tenderness and no deformity was found on exam, no costochondral pain or discomfort. Heart: irregular rate and rhythm, S1, S2 normal, positive S3 positive JVD with systolic murmur. Back: Symmetric, no curvature, ROM normal, no CVA tenderness. Abdomen: Soft, non-tender, bowel sounds active all four quadrants, no masses, no organomegaly. Extremities: no edema with slight discoloration from the knee down bilaterally. Pulses: 2+ and symmetric. No pedal edema. Skin: Skin color, texture, tugor normal, no rashes or lesions. Neurologic: Alert oriented x1-2 cranial nerves II through XII intact, no motor deficit, no abnormal balance or gait. - Labs CBC & Chem 7: 08/13/18 07:06 08/15/18 12:10 Assessment and Plan Plan: 1 acute respiratory distress secondary to acute on chronic systolic heart failure, early pulmonary edema, COPD and fluid overload. Hold Lasix, potassium, Aldactone. Continue, Entresto, Coreg 3.125 mg twice daily. Cardiology consult. Continue nebulizer treatments 3 times daily as needed. Entresto dose incre ased. 2 acute on chronic systolic heart failure. Continue as in #1. 3 atherosclerotic heart disease: With worsening symptoms on and off patient seen cardiology testing and heart cath is up-to-date at this point whether there is more event or change in troponin no need for any intervention. 4 acute kidney injury with chronic kidney disease III. Consult with nephrology added. We have discontinued Lasix, spironolactone, potassium, decreased Entresto. Monitor output 5 COPD with mild exacerbation continue patient on DuoNeb and Pulmicort continue O2 try to keep his pulse ox above 90 percentile. 6 chronic atrial fibrillation: Patient remain on amiodarone and Eliquis along with beta emile. 7 BPH: Remain on tamsulosin and Proscar. 8 adrenal insufficiency: Remain on Cortef and Florinef. 9 chronic anemia: No need for blood transfusion. 10 hyperlipidemia: Remain on lovastatin 40 mg daily. 11 hypothyroidism: Continue patient on levothyroxine when he 5 g daily. 12. Recurrent depression and mild anxiety attacks. Continue Celexa 20 mg twice daily, Klonopin 0.25 mg at bedtime and Cymbalta 30 mg daily added. Xanax 0.25 mg twice daily as needed added 13. DVT prophylaxis. Continue eliquis. 14. GI prophylaxis. Pepcid. 15. Nausea. Continue Zofran 4 mg IV every 6 hours as needed. Scopolamine patch added, Carafate 1 g before meals and at bedtime added. 16. Acute delirium secondary to insomnia and sleep deprivation. Xanax will be discontinued. No other medication changes to be made today. CODE STATUS: Full code. Discharge plan: Home with [facility] with palliative care in 48 hours. Impression and plan of care have been directed as dictated by the signing physician. Luma Mancera nurse practitioner acting as scribe for signing physician.
--- NOTE | 2018-08-15 15:15 | P.PN ---
Subjective Progress Note Date: 08/15/18 Seen and examined for the follow-up of acute kidney injury. Feels weak today. No nausea vomiting or diarrhea. Objective - Vital Signs Vital signs: Vital Signs Temp 97.3 F L 08/15/18 08:00 Pulse 92 08/15/18 11:40 Resp 18 08/15/18 11:40 BP 107/54 08/15/18 11:40 Pulse Ox 94 L 08/15/18 11:40 Intake & Output 08/14/18 08/15/18 08/15/18 18:59 06:59 18:59 Intake Total 600 Output Total 400 400 Balance 200 -400 Weight 70.5 kg Intake: Oral 600 Output: Urine 400 400 Other: Voiding Method Urinal Urinal # Voids 2 1 - Exam No acute distress S1-S2 heard Lungs clear No edema - Labs CBC & Chem 7: 08/13/18 07:06 08/15/18 12:10 Labs: Abnormal Lab Results - Last 24 Hours (Table) 08/15/18 Range/Units 12:10 Sodium 134 L (137-145) mmol/L Potassium 5.3 H (3.5-5.1) mmol/L Chloride 95 L (98-107) mmol/L Carbon Dioxide 34 H (22-30) mmol/L BUN 57 H (9-20) mg/dL Creatinine 3.34 H (0.66-1.25) mg/dL Glucose 111 H (74-99) mg/dL Assessment and Plan Assessment: #1 acute kidney injury secondary to over diuresis. #2 CK D3 secondary to nephrosclerosis baseline creatinine 1.8-2.4 MG per DL. #3 CHF with systolic dysfunction year for 20-25%. Currently euvolemic towards dry site. #4 metabolic alkalosis. #5 mild hyperkalemia. Plan: #1 currently diuretics on hold. Also stops Sicubatil #2 gentle IV hydration as creatinine creeping. #3 bladder scan to rule out urinary retention # 4 AM labs.
[2018-08-15] MEDS: SODIUM CHLORIDE 0.9% 1,000 ML IV SCH (16:45)
[2018-08-15] MEDS: clonazePAM 0.5 MG TAB PO SCH (20:00)
[2018-08-15] MEDS: ATORVASTATIN 10 MG TAB PO SCH (20:00)
[2018-08-16] MEDS: SUCRALFATE 1 GM TAB PO SCH ×4 (06:18→22:05)
[2018-08-16] MEDS: LEVOTHYROXINE 25 MCG TAB PO SCH (06:18)
[2018-08-16] MEDS: CARVEDILOL 3.125 MG TAB PO SCH ×2 (06:18→17:02)
[2018-08-16] MEDS: SODIUM CHLORIDE 0.9% 1,000 ML IV SCH (06:18)
[2018-08-16 08:37] LABS: Potassium 5.3 mmol/L (3.5-5.1)
[2018-08-16] MEDS: ALBUTEROL NEBULIZED 2.5 MG/3 ML INHALATION PRN (09:01)
[2018-08-16] MEDS: BUDESONIDE 0.5 MG/2 ML NEBU INHALATION SCH ×2 (09:03→21:02)
[2018-08-16] MEDS: FAMOTIDINE 20 MG TAB PO SCH (09:15)
[2018-08-16] MEDS: HYDROCORTISONE 10 MG TAB PO SCH ×2 (09:15→22:04)
[2018-08-16] MEDS: APIXABAN 2.5 MG TABLET PO SCH ×2 (09:15→22:05)
[2018-08-16] MEDS: MIDODRINE 5 MG TAB PO SCH ×3 (09:15→22:07)
[2018-08-16] MEDS: DULoxetine HCL 30 MG CAPSULE.DR PO SCH (09:16)
[2018-08-16] MEDS: ALLOPURINOL 100 MG TAB PO SCH (09:16)
[2018-08-16] MEDS: CITALOPRAM HYDROBROMIDE 20 MG TAB PO SCH ×2 (09:16→22:05)
--- NOTE | 2018-08-16 10:36 | P.PN ---
Subjective Mr. Godoy is a pleasant 73-year-old male past medical history significant for chronic systolic heart failure. He is seen and examined sitting up in bed in no acute distress. He is a 50 sitter at the bedside secondary to confusion. Blood pressure 98/74 heart rate 94 afebrile maintaining oxygen saturation on nasal cannula. Laboratory data reviewed, sodium 134, potassium 5.3, creatinine 3.47, GFR 16. Currently maintained on Eliquis 2.5 mg twice a day, atorvastatin 10 mg daily, carvedilol 3.125 mg twice a day, midodrine 10 mg 3 times a day. GENERAL: Well-appearing, well-nourished and in no acute distress. NECK: Supple without JVD or thyromegaly. LUNGS: Breath sounds clear to auscultation bilaterally. Respiration equal and u nlabored. No wheezes, rales or rhonchi. Diminished bilaterally. HEART: Irregular rate and rhythm with systolic ejection murmur at the left sternal border, no rubs or gallops. S1 and S2 heard. EXTREMITIES: Normal range of motion, no edema. No clubbing or cyanosis. Peripheral pulses intact. ASSESSMENT Acute on chronic systolic heart failure, ejection fraction 20-25%. History of coronary artery disease Acute on chronic kidney disease Acute exacerbation of COPD Chronic persistent atrial fibrillation Dyslipidemia PLAN Recommend resuming Lasix 40 mg by mouth twice a day when appropriate per nep hrology. Discontinue Florinef. Overall clinically he is stable from a cardiac perspective. May be discharged from a cardiac perspective. Nurse Practitioner note has been reviewed, I agree with a documented findings and plan of care. Patient was seen and examined. Objective - Vital Signs Vital signs: Vital Signs Temp 96.7 F L 08/16/18 09:11 Pulse 94 08/16/18 09:11 Resp 18 08/16/18 09:19 BP 97/52 08/16/18 09:11 Pulse Ox 96 08/16/18 09:11 Intake & Output 08/15/18 08/16/18 08/16/18 18:59 06:59 18:59 Intake Total 430 Output Total 650 Balance 430 -650 Weight 71.7 kg Intake: Oral 430 Output: Urine 650 Other: Voiding Method Toilet Urinal # Voids 1 2 - Labs CBC & Chem 7: 08/13/18 07:06 03/31/19 07:27 Labs: Abnormal Lab Results - Last 24 Hours (Table) 08/15/18 08/16/18 Range/Units 12:10 07:27 Sodium 134 L 134 L (137-145) mmol/L Potassium 5.3 H 5.3 H (3.5-5.1) mmol/L Chloride 95 L 97 L (98-107) mmol/L Carbon Dioxide 34 H (22-30) mmol/L BUN 57 H 55 H (9-20) mg/dL Creatinine 3.34 H 3.47 H (0.66-1.25) mg/dL Glucose 111 H (74-99) mg/dL
[2018-08-16 11:39] LABS: Appearance,Urine Cloudy (Clear); Bilirubin,Urine Negative (Negative); Blood,Urine Negative (Negative); Color,Urine Yellow; Glucose,Urine (UA) Negative (Negative); Hyaline Casts,Urine 7 /lpf (0-2); Ketones,Urine Negative (Negative); Leukocyte Esterase,Urine Negative (Negative); Mucus,Urine Rare /hpf; Nitrite,Urine Negative (Negative); Protein,Urine 1+ (Negative); RBC,Urine <1 /hpf (0-5); Specific Gravity,Urine 1.014 (1.001-1.035); WBC,Urine 1 /hpf (0-5)
--- NOTE | 2018-08-16 12:38 | P.PN ---
Subjective Progress Note Date: 08/16/18 Seen and examined for the follow-up of acute kidney injury. Feels weak today. No nausea vomiting or diarrhea. at bedside worried about confusion. Objective - Vital Signs Vital signs: Vital Signs Temp 96.7 F L 08/16/18 09:11 Pulse 93 08/16/18 12:00 Resp 18 08/16/18 12:00 BP 121/66 08/16/18 12:00 Pulse Ox 95 08/16/18 12:00 Intake & Output 08/15/18 08/16/18 08/16/18 18:59 06:59 18:59 Intake Total 430 300 Output Total 650 100 Balance 430 -650 200 Weight 71.7 kg Intake: Intake, IV Titration 300 Amount Sodium Chloride 0.9% 1, 300 000 ml @ 75 mls/hr IV . [id number] [facility] Rx#:[id number] Oral 430 Output: Urine 650 100 Other: Voiding Method Toilet Urinal # Voids 1 2 2 - Exam No acute distress S1-S2 heard Lungs clear Lower extremity edema - Labs CBC & Chem 7: 08/13/18 07:06 08/16/18 07:27 Labs: Abnormal Lab Results - Last 24 Hours (Table) 08/15/18 08/16/18 08/16/18 Range/Units 12:10 07:27 10:40 Sodium 134 L 134 L (137-145) mmol/L Potassium 5.3 H 5.3 H (3.5-5.1) mmol/L Chloride 95 L 97 L (98-107) mmol/L Carbon Dioxide 34 H (22-30) mmol/L BUN 57 H 55 H (9-20) mg/dL Creatinine 3.34 H 3.47 H (0.66-1.25) mg/dL Glucose 111 H (74-99) mg/dL Urine Protein 1+ H (Negative) Hyaline Casts 7 H (0-2) /lpf Urine Mucus Rare H (None) /hpf Assessment and Plan Assessment: #1 acute kidney injury secondary to cardiorenal syndrome, creeping creatinine secondary to over diuresis. #2 CK D3 secondary to nephrosclerosis baseline creatinine 1.8-2.4 MG per DL. #3 CHF with systolic dysfunction year for 20-25%. #4 metabolic alkalosis. #5 mild hyperkalemia. #6 lower extremity edema secondary to IV fluids. Plan: #1 currently diuretics and Entresto on hold. #2 stop IV fluids with lower extremity edema. Lasix can be started tomorrow. #3 bladder scan postvoid's 150 ML's. # 4 discussed with the at bedside regarding needs of dialysis if renal function continued to worsen. not in favor of dialysis if need arises.
--- NOTE | 2018-08-16 13:16 | CT ---
EXAMINATION TYPE: CT brain wo con DATE OF EXAM: 08/16/2018 COMPARISON: 04/04/2018 INDICATION: Confusion, Altered mental status DLP: 1090 mGycm, Automated exposure control for dose reduction was used. CONTRAST: None CT of the brain is performed utilizing 3 mm thick sections through the posterior fossa and 3 mm thick sections through the remaining calvarium. Study is performed within 24 hours of arrival to the hosp [facility]. No abnormal hyperdensity is present to suggest an acute intracranial hemorrhage. No mass lesion is evident. No acute infarcts are evident. Subtle periventricular white matter hypodensity appears to be present, likely on the basis of chronic white matter ischemic changes. Findings appear stable from comparison . Ventricles and sulci are appropriate for the patient age. Paranasal sinuses and mastoid air cells within the [id number] are clear. IMPRESSIONS: 1. Subtle periventricular white matter ischemic type changes stable from prior study.
--- NOTE | 2018-08-16 13:33 | P.PN ---
Subjective Progress Note Date: 08/16/18 73-year-old male one of my office patient with multiple medical problem was known to have history of ischemic cardiopathy, CAD, CHF, COPD and A. jesús with RVR who has been seeing cardiology regular basis and was in the hospital recently for fluid overload and systolic with diastolic congestive he art failure was started on Entresto was in for follow up in the office was feeling well. Patient presented to the emergency department at [facility] today 5 pounds weight gain in the last 24 hours not a clear etiology has been taking his medication regularly. Patient was diagnosed with adrenal insufficiency and had improved been on Cortef and fludrocortisone as well. Patient was treated with IV diuretics his BMPs quite bit high chest x-ray significant for fluid overload and early pulmonary edema. Patient be hospitalized was start him on IV Lasix at drip and try to adjust his medication add spironolactone and maybe Zaroxolyn 18 to control his symptoms better without affecting his blood pressure. 08/11: Patient is continued on a Lasix drip as well as Aldactone 25 mg daily was added for this morning and Entresto dose was increased to 49/51 mg. He has had weight loss of 1-1/2 kg. Patient is complaining of nausea for which Zofran was added. Cardiology is on consult. Discussed discharge planning with option of palliative care which patient and at bedside are open to pursuing. Case management to follow-up. Patient has been afebrile, heart rate in the 90s, blood pressure 124/68 but ran low during the night. Pulse ox 90% on 3 L nasal cannula. Patient has ongoing concerns for depression and Cymbalta added to Celexa. 08/12: Patient has been afebrile, heart rate in the 70s to 90s, blood pressure 109/75, pulse ox 95% on 3 L nasal cannula. White count 6.1, hemoglobin 11.2. Sodium 137, potassium 4.7, chloride 97, CO2 33, BUN 46 and creatinine 2.64. Magnesium 1.9, total bilirubin 2.1, AST is increased to 114, ALT increased to 154 and alkaline phosphatase increased to 95. Repeat pro and be as 19,300. We will order liver ultrasound. IV Lasix will be discontinued and patient started on IV push Lasix 80 mg twice daily and plan to resume home dose at 80 mg orally twice daily tomorrow morning. Patient is having difficulty sleeping and according to his , he often takes a full dose of clonazepam at home for sleep. We will increase dose to 0.5 mg at bedtime as needed. 08/13: Patient has been afebrile, heart rate in the 90s to low 100, blood pressure 106/74, pulse ox 100% on room air. Hemoglobin 11.3, sodium 136, potassium 5.5, chloride 98, CO2 31, BUN 46 and creatinine 2.92. Patient states he is not feeling very well today mostly because his stomach is upset. He has lost 3 kg since admission. We will plan to hold oral Lasix today,stop potassium and Aldactone and start the patient on IV fluids at 75 mL per hour. We will plan to monitor the patient overnight and recheck electrolytes and renal function in the morning. Potassium recheck ordered for this afternoon. 08/14: Repeat potassium yesterday afternoon was 5 and this morning 4.9, BUN 51 and creatinine 3.11. Discharge plan for today will be held and consult with nephrology added. Patient continues to complain of nausea and states that his nerves are really bad today. We have added and Carafate and scopolamine patch as well as low dose Xanax. Entresto dose decreased to 24/26 mg. Plan to monitor renal function and possible discharge the next 48 hours. 08/15: Repeat lab work reveals sodium 134, potassium 5.3, chloride 95, CO2 34, BUN 57 creatinine 3.34. Patient was seen by Dr. Frey yesterday with recommendations to continue to hold current medications. No plan for IV fluids. Patient is quite confused this morning. His states he has only slept about 10 4 hours since his admission on Friday. Also she noticed that he has not urinated since she arrived. Nursing to check bladder scan and monitor I&O's. Patient has been afebrile, heart rate in the 60s to 90s, blood pressure 107/54, pulse ox 94% on room air. Patient was scheduled for discharge today w [facility] will be held. 08/16: Patient has been afebrile, heart rate in the 80s and 90s, blood pressure 1 21/66 and pulse ox 95% on room air. Patient's renal function continues to worsen with BUN of 55 and creatinine 3.47, sodium 134, potassium 5.3, chloride 97, CO2 28. Urinalysis was done which was negative for infection. Patient required a product safety professional due to worsening confusion. His is sitting at the bedside now. Patient did not sleep all through the night. We will discontinue Cymbalta. We will also order a CAT scan of the brain area and we discontinued Xanax yesterday. Patient complains of feeling very nervous. Patient is not had any nausea, vomiting, diarrhea. He has been seen by cardiology and Florinef discontinued and patient to resume Lasix once cleared by nephrology and cleared for discharge. We will add in a consult for psychiatry for anxiety and insomnia. Nephrology is recommending stopping IV fluids and start Lasix tomorrow, bladder scan postvoid. Apparently dialysis was discussed and patient has stated in the past that he does not want hemodialysis. Review of Systems unable to obtain due to confusion Objective - Vital Signs Vital signs: Vital Signs Temp 96.7 F L 08/16/18 09:11 Pulse 94 08/16/18 09:11 Resp 18 08/16/18 09:19 BP 97/52 08/16/18 09:11 Pulse Ox 96 08/16/18 09:11 Intake & Output 08/15/18 08/16/18 08/16/18 18:59 06:59 18:59 Intake Total 430 300 Output Total 650 100 Balance 430 -650 200 Weight 71.7 kg Intake: Intake, IV Titration 300 Amount Sodium Chloride 0.9% 1, 300 000 ml @ 75 mls/hr IV . [id number] [facility] Rx#:[id number] Oral 430 Output: Urine 650 100 Other: Voiding Method Toilet Urinal # Voids 1 2 2 - Exam General Appearance: Alert, cooperative, no distress, appears stated age. Patient's is at bedside. Neck HEENT: Supple, no lymphadenopathy, no thyroid enlargement, no carotid bruits. Lungs: Clear to auscultation without crackles or wheezes no rhonchi, no defo rmity. Chest Wall: Decrease expansion with deep inspiration no tenderness and no deformity was found on exam, no costochondral pain or discomfort. Heart: irregular rate and rhythm, S1, S2 normal, positive S3 positive JVD with systolic murmur. Back: Symmetric, no curvature, ROM normal, no CVA tenderness. Abdomen: Soft, non-tender, bowel sounds active all four quadrants, no masses, no organomegaly. Extremities: Trace bilateral edema with slight discoloration from the knee down bilaterally. Pulses: 2+ and symmetric. No pedal edema. Skin: Skin color, texture, tugor normal, no rashes or lesions. Neurologic: Alert oriented x1, cranial nerves II through XII intact, no motor deficit, no abnormal balance or gait. - Labs CBC & Chem 7: 08/13/18 07:06 08/16/18 07:27 Labs: Abnormal Lab Results - Last 24 Hours (Table) 08/15/18 08/16/18 08/16/18 Range/Units 12:10 07:27 10:40 Sodium 134 L 134 L (137-145) mmol/L Potassium 5.3 H 5.3 H (3.5-5.1) mmol/L Chloride 95 L 97 L (98-107) mmol/L Carbon Dioxide 34 H (22-30) mmol/L BUN 57 H 55 H (9-20) mg/dL Creatinine 3.34 H 3.47 H (0.66-1.25) mg/dL Glucose 111 H (74-99) mg/dL Urine Protein 1+ H (Negative) Hyaline Casts 7 H (0-2) /lpf Urine Mucus Rare H (None) /hpf Assessment and Plan Plan: 1 acute respiratory distress secondary to acute on chronic systolic heart failure, early pulmonary edema, COPD and fluid overload. Hold Lasix, potassium, Aldactone. Continue, Entresto, Coreg 3.125 mg twice daily. Cardiology consult. Continue nebulizer treatments 3 times daily as needed. Entresto dose increased. 2 acute on chronic systolic heart failure. Continue as in #1. 3 atherosclerotic heart disease: With worsening symptoms on and off patient seen cardiology testing and heart cath is up-to-date at this point whether there is more event or change in troponin no need for any intervention. 4 acute kidney injury with chronic kidney disease III. Consult with nephrology added. We have discontinued Lasix, spironolactone, potassium, decreased Entresto. Monitor output 5 COPD with mild exacerbation continue patient on DuoNeb and Pulmicort continue O2 try to keep his pulse ox above 90 percentile. 6 chronic atrial fibrillation: Patient remain on amiodarone and Eliquis along with beta emile. 7 BPH: Remain on tamsulosin and Proscar. 8 adrenal insufficiency: Remain on Cortef and Florinef. 9 chronic anemia: No need for blood transfusion. 10 hyperlipidemia: Remain on lovastatin 40 mg daily. 11 hypothyroidism: Continue patient on levothyroxine when he 5 g daily. 12. Recurrent depression and mild anxiety attacks. Continue Celexa 20 mg twice daily, Klonopin 0.25 mg at bedtime and Cymbalta 30 mg daily added. Xanax 0.25 mg twice daily as needed added 13. DVT prophylaxis. Continue eliquis. 14. GI prophylaxis. Pepcid. 15. Nausea. Continue Zofran 4 mg IV every 6 hours as needed. Scopolamine patch added, Carafate 1 g before meals and at bedtime added. 16. Acute delirium secondary to insomnia and sleep deprivation. Xanax will be discontinued. Cymbalta discontinued. Consult with psychiatry. CODE STATUS: No code. Discharge plan: Home with [facility] with palliative care in 48 hours. Impression and plan of care have been directed as dictated by the signing physician. Luma Mancera nurse practitioner acting as scribe for signing physician.
[2018-08-16] MEDS: oxyCODONE-APAP 7.5-325MG 1 EACH TAB PO PRN (15:01)
[2018-08-16] MEDS: FINASTERIDE 5 MG TAB PO SCH (22:05)
[2018-08-16] MEDS: ATORVASTATIN 10 MG TAB PO SCH (22:05)
[2018-08-16] MEDS: clonazePAM 0.5 MG TAB PO SCH (22:05)
[2018-08-17] MEDS: CARVEDILOL 3.125 MG TAB PO SCH ×2 (07:05→17:38)
[2018-08-17] MEDS: SUCRALFATE 1 GM TAB PO SCH ×4 (07:05→21:28)
[2018-08-17] MEDS: LEVOTHYROXINE 25 MCG TAB PO SCH (07:05)
[2018-08-17 07:16] LABS: Potassium 5.1 mmol/L (3.5-5.1)
[2018-08-17] MEDS: HYDROCORTISONE 10 MG TAB PO SCH ×2 (08:04→21:29)
[2018-08-17] MEDS: ALLOPURINOL 100 MG TAB PO SCH (08:04)
[2018-08-17] MEDS: CITALOPRAM HYDROBROMIDE 20 MG TAB PO SCH (08:04)
[2018-08-17] MEDS: MIDODRINE 5 MG TAB PO SCH ×3 (08:04→21:28)
[2018-08-17] MEDS: TAMSULOSIN 0.4 MG CAP.ER.24H PO SCH (08:04)
[2018-08-17] MEDS: APIXABAN 2.5 MG TABLET PO SCH ×2 (08:04→21:28)
[2018-08-17] MEDS: FAMOTIDINE 20 MG TAB PO SCH (08:04)
[2018-08-17] MEDS: BUDESONIDE 0.5 MG/2 ML NEBU INHALATION SCH ×2 (08:05→19:53)
[2018-08-17] MEDS: ALBUTEROL NEBULIZED 2.5 MG/3 ML INHALATION PRN (08:05)
[2018-08-17] MEDS: SCOPOLAMINE 1.5MG/72HR PATCH TRANSDERM SCH (08:07)
--- NOTE | 2018-08-17 11:48 | P.PN ---
Subjective Progress Note Date: 08/17/18 73-year-old male one of my office patient with multiple medical problem was known to have history of ischemic cardiopathy, CAD, CHF, COPD and A. jesús with RVR who has been seeing cardiology regular basis and was in the hospital recently for fluid overload and systolic with diastolic congestive he art failure was started on Entresto was in for follow up in the office was feeling well. Patient presented to the emergency department at [facility] today 5 pounds weight gain in the last 24 hours not a clear etiology has been taking his medication regularly. Patient was diagnosed with adrenal insufficiency and had improved been on Cortef and fludrocortisone as well. Patient was treated with IV diuretics his BMPs quite bit high chest x-ray significant for fluid overload and early pulmonary edema. Patient be hospitalized was start him on IV Lasix at drip and try to adjust his medication add spironolactone and maybe Zaroxolyn 18 to control his symptoms better without affecting his blood pressure. 08/11: Patient is continued on a Lasix drip as well as Aldactone 25 mg daily was added for this morning and Entresto dose was increased to 49/51 mg. He has had weight loss of 1-1/2 kg. Patient is complaining of nausea for which Zofran was added. Cardiology is on consult. Discussed discharge planning with option of palliative care which patient and at bedside are open to pursuing. Case management to follow-up. Patient has been afebrile, heart rate in the 90s, blood pressure 124/68 but ran low during the night. Pulse ox 90% on 3 L nasal cannula. Patient has ongoing concerns for depression and Cymbalta added to Celexa. 08/12: Patient has been afebrile, heart rate in the 70s to 90s, blood pressure 109/75, pulse ox 95% on 3 L nasal cannula. White count 6.1, hemoglobin 11.2. Sodium 137, potassium 4.7, chloride 97, CO2 33, BUN 46 and creatinine 2.64. Magnesium 1.9, total bilirubin 2.1, AST is increased to 114, ALT increased to 154 and alkaline phosphatase increased to 95. Repeat pro and be as 19,300. We will order liver ultrasound. IV Lasix will be discontinued and patient started on IV push Lasix 80 mg twice daily and plan to resume home dose at 80 mg orally twice daily tomorrow morning. Patient is having difficulty sleeping and according to his , he often takes a full dose of clonazepam at home for sleep. We will increase dose to 0.5 mg at bedtime as needed. 08/13: Patient has been afebrile, heart rate in the 90s to low 100, blood pressure 106/74, pulse ox 100% on room air. Hemoglobin 11.3, sodium 136, potassium 5.5, chloride 98, CO2 31, BUN 46 and creatinine 2.92. Patient states he is not feeling very well today mostly because his stomach is upset. He has lost 3 kg since admission. We will plan to hold oral Lasix today,stop potassium and Aldactone and start the patient on IV fluids at 75 mL per hour. We will plan to monitor the patient overnight and recheck electrolytes and renal function in the morning. Potassium recheck ordered for this afternoon. 08/14: Repeat potassium yesterday afternoon was 5 and this morning 4.9, BUN 51 and creatinine 3.11. Discharge plan for today will be held and consult with nephrology added. Patient continues to complain of nausea and states that his nerves are really bad today. We have added and Carafate and scopolamine patch as well as low dose Xanax. Entresto dose decreased to 24/26 mg. Plan to monitor renal function and possible discharge the next 48 hours. 08/15: Repeat lab work reveals sodium 134, potassium 5.3, chloride 95, CO2 34, BUN 57 creatinine 3.34. Patient was seen by Dr. Frey yesterday with recommendations to continue to hold current medications. No plan for IV fluids. Patient is quite confused this morning. His states he has only slept about 10 4 hours since his admission on Friday. Also she noticed that he has not urinated since she arrived. Nursing to check bladder scan and monitor I&O's. Patient has been afebrile, heart rate in the 60s to 90s, blood pressure 107/54, pulse ox 94% on room air. Patient was scheduled for discharge today w [facility] will be held. 08/16: Patient has been afebrile, heart rate in the 80s and 90s, blood pressure 1 21/66 and pulse ox 95% on room air. Patient's renal function continues to worsen with BUN of 55 and creatinine 3.47, sodium 134, potassium 5.3, chloride 97, CO2 28. Urinalysis was done which was negative for infection. Patient required a safety clothing and equipment developer due to worsening confusion. His is sitting at the bedside now. Patient did not sleep all through the night. We will discontinue Cymbalta. We will also order a CAT scan of the brain area and we discontinued Xanax yesterday. Patient complains of feeling very nervous. Patient is not had any nausea, vomiting, diarrhea. He has been seen by cardiology and Florinef discontinued and patient to resume Lasix once cleared by nephrology and cleared for discharge. We will add in a consult for psychiatry for anxiety and insomnia. Nephrology is recommending stopping IV fluids and start Lasix tomorrow, bladder scan postvoid. Apparently dialysis was discussed and patient has stated in the past that he does not want hemodialysis. 08/17: Patient continues to some confusion but is improved from yesterday. A safety clothing and equipment developer remains at bedside. Patient's is at bedside as well. Patient is having difficulty sleeping because he cannot lay down but unclear if this is related to his anxiety or shortness of breath. Patient is falling asl eep during conversation. His mental status does seem improved since Cymbalta was discontinued. We are awaiting psychiatry input. His lungs are currently clear to auscultation. He does have lower extremity edema. Sodium 135, potassium 5.1, chloride 97, CO2 32, BUN 59 creatinine 3.29. We will resume his home dose of Lasix at 80 mg twice daily. Patient had a bowel movement yesterday. He denies any abdominal pain. Review Of Systems: Constitutional: No fever, no chills, no night sweats. Reports fatigue. Reports daytime sleepiness. EENT: reports headache. No nasal drainage or congestion. No epistaxis. No sore throat. Lungs: No shortness of breath, cough, no sputum production. No wheezing. Cardiovascular: No chest pain, reports lower extremity edema. No palpitations. No paroxysmal nocturnal dyspnea. No orthopnea. No lightheadedness or dizziness. No syncopal episodes. Abdominal: No abdominal pain. No nausea, vomiting. No diarrhea. No constipation. No bloody or tarry stools.. No loss of appetite. Genitourinary: No dysuria, increased frequency, urgency. No urinary retention. Musculoskeletal: No myalgias. No muscle weakness, no gait dysfunction, no frequent falls. No back pain. No neck pain. Integumentary: No wounds, no lesions. No rash or pruritus. Neurologic: No aphasia. No facial droop. Reports change in mentation. No head injury. No headache. No paralysis. No paresthesia. Psychiatric: No depression. Reports anxiety. Reports insomnia. Objective - Vital Signs Vital signs: Vital Signs Temp 97.7 F 08/17/18 08:00 Pulse 80 08/17/18 08:17 Resp 18 08/17/18 04:00 BP 99/68 08/17/18 08:00 Pulse Ox 98 08/17/18 08:00 Intake & Output 08/16/18 08/17/18 08/17/18 18:59 06:59 18:59 Intake Total 400 Output Total 100 650 Balance 300 -650 Weight 72.2 kg Intake: Intake, IV Titration 300 Amount Sodium Chloride 0.9% 1, 300 000 ml @ 75 mls/hr IV . [id number] [facility] Rx#:[id number] Oral 100 Output: Urine 100 650 Other: Voiding Method Toilet Urinal # Voids 2 1 1 - Exam General Appearance: Alert, cooperative, no distress, appears stated age. Patient's is at bedside. Neck HEENT: Supple, no lymphadenopathy, no thyroid enlargement, no carotid bruits. Lungs: Clear to auscultation without crackles or wheezes no rhonchi, no deformity. Chest Wall: Decrease expansion with deep inspiration no tenderness and no deformity was found on exam, no costochondral pain or discomfort. Heart: irregular rate and rhythm, S1, S2 normal, positive S3 positive JVD with systolic murmur. Back: Symmetric, no curvature, ROM normal, no CVA tenderness. Abdomen: Soft, non-tender, bowel sounds active all four quadrants, no masses, no organomegaly. Extremities: Trace bilateral edema with slight discoloration from the knee down bilaterally. Pulses: 2+ and symmetric. No pedal edema. Skin: Skin color, texture, tugor normal, no rashes or lesions. Neurologic: Alert oriented x1, cranial nerves II through XII intact, no motor deficit, no abnormal balance or gait. - Labs CBC & Chem 7: 08/13/18 07:06 08/17/18 06:28 Labs: Abnormal Lab Results - Last 24 Hours (Table) 08/16/18 08/17/18 Range/Units 10:40 06:28 Sodium 135 L (137-145) mmol/L Chloride 97 L (98-107) mmol/L Carbon Dioxide 32 H (22-30) mmol/L BUN 59 H (9-20) mg/dL Creatinine 3.29 H (0.66-1.25) mg/dL Urine Protein 1+ H (Negative) Hyaline Casts 7 H (0-2) /lpf Urine Mucus Rare H (None) /hpf Assessment and Plan Plan: 1 acute respiratory distress secondary to acute on chronic systolic heart failure, early pulmonary edema, COPD and fluid overload. Hold Lasix, potassium, Aldactone. Continue, Entresto, Coreg 3.125 mg twice daily. Cardiology consult. Continue nebulizer treatments 3 times daily as needed. Entresto dose increased. 2 acute on chronic systolic heart failure. Continue as in #1. 3 atherosclerotic heart disease: With worsening symptoms on and off patient seen cardiology testing and heart cath is up-to-date at this point whether there is more event or change in troponin no need for any intervention. 4 acute kidney injury with chronic kidney disease III. Consult with nephrology added. We have discontinued Lasix, spironolactone, potassium, decreased Entresto. Monitor output 5 COPD with mild exacerbation continue patient on DuoNeb and Pulmicort continue O2 try to keep his pulse ox above 90 percentile. 6 chronic atrial fibrillation: Patient remain on amiodarone and Eliquis along with beta emile. 7 BPH: Remain on tamsulosin and Proscar. 8 adrenal insufficiency: Remain on Cortef and Florinef. 9 chronic anemia: No need for blood transfusion. 10 hyperlipidemia: Remain on lovastatin 40 mg daily. 11 hypothyroidism: Continue patient on levothyroxine when he 5 g daily. 12. Recurrent depression and mild anxiety attacks. Continue Celexa 20 mg twice daily, Klonopin 0.25 mg at bedtime and Cymbalta 30 mg daily added. Xanax 0.25 mg twice daily as needed added 13. DVT prophylaxis. Continue eliquis. 14. GI prophylaxis. Pepcid. 15. Nausea. Continue Zofran 4 mg IV every 6 hours as needed. Scopolamine patch added, Carafate 1 g before meals and at bedtime added. 16. Acute delirium secondary to insomnia and sleep deprivation. Xanax will be discontinued. Cymbalta discontinued. Consult with psychiatry. CODE STATUS: No code. Discharge plan: Home with [facility] with palliative care in 48 hours. Impression and plan of care have been directed as dictated by the signing physician. Luma Mancera nurse practitioner acting as scribe for signing physician.
[2018-08-17] MEDS: FUROSEMIDE 80 MG TAB PO SCH (12:10)
[2018-08-17] MEDS: ONDANSETRON 4 MG/2 ML VIAL IVP PRN (13:55)
[2018-08-17 15:05] VITALS: BMI 22.1
--- NOTE | 2018-08-17 15:13 | P.CN ---
Psychiatric Consult - . Consult date: 08/17/18 Consult:: 08/17/18 09:50 Anxiety possible depression Assessment and Plan Assessment: 73-year-old male one of my office patient with multiple medical problem was known to have history of ischemic cardiopathy, CAD, CHF, COPD and A. fib with RVR who has been seeing cardiology regular basis and was in the hospital recently for fluid overload and systolic with diastolic congestive heart failure was started on Entresto was in for follow up in the office was feeling well. Patient presented to the emergency department at [facility] today 5 pounds weight gain in the last 24 hours not a clear etiology has been taking his medication regularly. Patient was diagnosed with adrenal insufficiency and had improved been on Cortef and fludrocortisone as well. Patient was treated with IV diuretics his BMPs quite bit high chest x-ray significant for fluid overload and early pulmonary edema. Patient be hospitalized was start him on IV Lasix at drip and try to adjust his medication add spironolactone and maybe Zaroxolyn 18 to control his symptoms better without affecting his blood pressure. Recurrent depression and mild anxiety attacks. Continue Celexa 20 mg twice daily, Klonopin 0.25 mg at bedtime and Cymbalta 30 mg daily added. Xanax 0.25 mg twice daily as needed added? clinic to see that the Cymbalta and Xanax were discontinued today. Further recommendations are made below. Home Medications Medication Instructions Recorded Confirmed Type Dicyclomine [Bentyl] 20 mg PO AC-TID PRN 10/27/13 08/10/18 History Lovastatin [Mevacor] 40 mg PO HS 10/27/13 08/10/18 History Citalopram Hydrobromide 20 mg PO BID 03/27/16 08/10/18 History [Citalopram HBr] Levothyroxine Sodium [Synthroid] 25 mcg PO DAILY 03/27/16 08/10/18 History Hydrocortisone [Cortef] 10 mg PO BID #0 04/08/18 08/10/18 Rx Sacubitril/Valsartan [Entresto 24 1 tab PO BID 04/24/18 08/10/18 History mg-26 mg Tablet] Carvedilol [Coreg] 3.125 mg PO BID 05/06/18 08/10/18 History clonazePAM 0.25 mg PO HS 05/06/18 08/10/18 History Midodrine HCl [ProAmatine] 10 mg PO TID #0 05/10/18 08/10/18 Rx Albuterol Sulfate [Proair Hfa] 2 puff INHALATION RT-TID PRN 07/15/18 08/10/18 History Allopurinol [Zyloprim] 100 mg PO DAILY 07/15/18 08/10/18 History Amiodarone [Cordarone] 200 mg PO DAILY 07/15/18 08/10/18 History Eylea 2mg/O.05ml 1 injection RIGHT EYE Q42D 07/15/18 08/10/18 History Finasteride [Proscar] 5 mg PO Q48H 07/15/18 08/10/18 History Tamsulosin HCl [Flomax] 0.4 mg PO Q48H 07/15/18 08/10/18 History Apixaban [Eliquis] 2.5 mg PO BID #60 tab 07/19/18 08/10/18 Rx Furosemide [Lasix] 80 mg PO BID@0900,1600 #60 tab 07/23/18 08/10/18 Rx Fludrocortisone [Florinef] 0.1 mg PO BID 08/10/18 08/10/18 History Potassium Chloride ER [K-Dur 20] 20 meq PO TID 08/10/18 08/10/18 History Past Medical History Past Medical History: Atrial Fibrillation, Heart Failure, CVA/TIA, GERD/Reflux, Hearing Disorder / Deafness, Hyperlipidemia, Hypertension, Memory Impairment, Myocardial Infarction (HI), Osteoarthritis (OA), Prostate Disorder, Respiratory Disorder, Thyroid Disorder Additional Past Medical History / Comment(s): stroke behind rt eye-poor vision, macular degeneration harris eyes, migraine & cluster headaches,, HI's x 2 ( age unknown), cardiomyopathy, hole in stomach from excedrin -it caused aspiration after which he was in an induced coma and on a ventilator for 9 days, sarcoidosis of lungs, abdominal and stomach pain, frequent diarrhea, several head injuries as a child, arthiritis bilateral knees and hips, multiple lipomas, kidney stones, enlarged prostate. Last Myocardial Infarction Date:: unknown History of Any Multi-Drug Resistant Organisms: MRSA Date of last positivie culture/infection: 08/15/09 MDRO Source:: LUNGS Past Surgical History: AICD, Bowel Resection, Heart Catheterization With Stent, Hernia Repair, Orthopedic Surgery, Pacemaker, Prostate Surgery, Tonsillectomy Additional Past Surgical History / Comment(s): 12/28/14 Lap jose fundoplasty with mesh and lap lysis of adhesions. Other SX: AICD 2009 with replacement 08/2013 (medtronic), 1995 bowel resection d/t perforation with colostomy with e ventual reversal of colostomy, 2009-surgery for "hole in stomach", 2007 blephoplasty bilaterally, 2001 deviated septum, 2003 TURP, 1975 vasectomy, 02/2013 R rotator cuff, surgery on "head" due to injuries, numerous lipoma removals-4 from L leg, 05/2014, 08/2013 EGD for removal of dentist spray nozzle, 1955 [facility] surgery at [facility], 1975 vasectomy, lithrotripsy, bilateral inquinal hernia repairs with R side done x3, cardiac caths with stents Past Anesthesia/Blood Transfusion Reactions: Postoperative Nausea & Vomiting (PONV) Additional Past Anesthesia/Blood Transfusion Reaction / Comment(s): Pt has never recieved blood Date of Last Stent Placement:: 2007 Type of Cardiac Device: AICD Device Placement Date:: 08/2013 Medtronic Past Psychological History: Anxiety, Depression Smoking Status: Former smoker Past Alcohol Use History: Heavy Past Drug Use History: None Reported - Past Family History Brother(s) Family Medical History: Cancer Additional Family Medical History / Comment(s): Patient has 2 brothers that are both alive. One has history of prostate cancer. Father Family Medical History: Renal Disease, Respiratory Disorder Additional Family Medical History / Comment(s): Father at age 75 from renal failure. Mother Family Medical History: Coronary Artery Disease (CAD), Dementia Additional Family Medical History / Comment(s): Mother at age 94 from Alzheimer dementia. Sister(s) Family Medical History: Osteoarthritis (OA) Additional Family Medical History / Comment(s): Patient has one sister with osteoarthritis. Mental Status Examination - This is a 73-year-old male who is seen in bed restless and confused. He appears disheveled and older than his stated age. His speech and language mumbling president halting monotone. Attitude and behavior is guarded withdrawn indifferent. Mood is depressed and anxious flat fearful hopelessness. Affect is blunted constricted. He is not oriented to time place or situation. He does not know what when his was born or whether he even has a . Thought content delusional. Risk factors will not answer questions about suicidal homicidal since I think this was severely demented. Perceptions he might be responding to internal stimuli because certainly is distracted thought process tangential. Concentration impaired per observation and interview with the patient. Recent memory impaired 0 out of 3 in 3 minutes. 0 out of 3 in 1 minute and 0 out of 0 immediately. Remote memory is severely markedly decreased intelligence is below average judgment is poor as insight is poor. Psychiatric impression: Neurocognitive disorder severe with underlying major depressive disorder. Psychiatric recommendations: Discontinue the Celexa since it can be activating and disruptive sleep and does not work well and elderly. We'll start him on Zoloft 25 mg by mouth daily at bedtime which can be sedating Rainer self. We'll also start Risperdal 0.5 mg by mouth daily at bedtime due to the fact I think he has hallucinations which one cannot elucidate that he tends to be difficult at nighttime which also could be sundowners. Also put him on Namenda (NMDA receptor) which will decrease his agitation. Some of this may be due to the use of hydrocortisone. Thank you for the consult Hernandez Caballero D.O. PhD (1) Major neurocognitive disorder due to another medical condition Current Visit: Yes Status: Acute Code(s): F02.80 - DEMENTIA IN OTH DISEASES CLASSD ELSWHR W/O BEHAVRL DISTURB SNOMED Code(s): 480731568 Time with Patient: Less than 30
--- NOTE | 2018-08-17 17:57 | PN ---
PROGRESS NOTE Patient is seen for followup for acute kidney injury. The patient is currently with a sitter. He has been confused. The patient's diuretics have been on hold as serum creatinine was slowly creeping up. This morning it is down to 3.29 from 3.47. No significant complaints per patient. He has been eating okay as per sitter. PHYSICAL EXAMINATION: This morning blood pressure was 99/68, heart rate 84 per minute. Patient is afebrile. Examination of the heart S1, S2. Examination of lungs bilateral breath sounds are heard. Abdomen is soft, nontender. Examination lower extremity shows no evidence of edema. POLLS OR SURVEYS INTERVIEWER exam is grossly intact. Patient moving all 4 extremities. However, he has been confused. LAB: Show sodium 135, potassium 5.1, BUN 59, serum creatinine 3.29, and UA shows 1+ protein. ASSESSMENT: 1. Acute cardiorenal. The diuretics were held for a short period of time, and patient received IV fluids. Yesterday, diuretics were restarted and IV fluids were discontinued. There are no nephrotoxic agents on board at this time. The patient has had good urine output. 2. Anxiety. The patient will be seen by psych. 3. Chronic kidney disease secondary to nephrosclerosis, stage III, baseline creatinine 1.8 to 2.4. 4. Congestive heart failure, acute on top of chronic systolic. 5. Cardiomyopathy, EF 20-25 percent. 6. Mild metabolic alkalosis. PLAN: May continue current dose of Lasix. May need adjustment depending on volume status and renal function. Continue with the midodrine. Repeat labs in a.m. The patient is also on Cortef for adrenal insufficiency. Continue to hold off on the Entresto for now. MMODL / IJN: [id number] /
[2018-08-17] MEDS: SERTRALINE 25 MG TAB PO SCH (21:28)
[2018-08-17] MEDS: MEMANTINE 5 MG TAB PO SCH (21:28)
[2018-08-17] MEDS: ATORVASTATIN 10 MG TAB PO SCH (21:28)
[2018-08-17] MEDS: clonazePAM 0.5 MG TAB PO SCH (21:28)
[2018-08-17] MEDS: risperiDONE 0.5 MG TAB PO SCH (21:29)
[2018-08-18] MEDS: LEVOTHYROXINE 25 MCG TAB PO SCH (07:04)
[2018-08-18] MEDS: SUCRALFATE 1 GM TAB PO SCH ×5 (07:05→21:03)
[2018-08-18] MEDS: CARVEDILOL 3.125 MG TAB PO SCH ×2 (07:05→16:42)
[2018-08-18 07:13] LABS: Potassium 5.3 mmol/L (3.5-5.1)
[2018-08-18] MEDS: BUDESONIDE 0.5 MG/2 ML NEBU INHALATION SCH ×2 (08:19→20:34)
[2018-08-18] MEDS: FAMOTIDINE 20 MG TAB PO SCH (10:58)
[2018-08-18] MEDS: MEMANTINE 5 MG TAB PO SCH ×2 (10:58→20:39)
[2018-08-18] MEDS: FUROSEMIDE 80 MG TAB PO SCH ×2 (10:58→16:42)
[2018-08-18] MEDS: APIXABAN 2.5 MG TABLET PO SCH ×2 (10:58→20:39)
[2018-08-18] MEDS: MIDODRINE 5 MG TAB PO SCH ×3 (10:58→20:39)
[2018-08-18] MEDS: ALLOPURINOL 100 MG TAB PO SCH (10:58)
[2018-08-18] MEDS: HYDROCORTISONE 10 MG TAB PO SCH ×2 (10:58→20:40)
--- NOTE | 2018-08-18 14:15 | P.PN ---
Subjective Progress Note Date: 08/18/18 73-year-old male one of my office patient with multiple medical problem was known to have history of ischemic cardiopathy, CAD, CHF, COPD and A. jesús with RVR who has been seeing cardiology regular basis and was in the hospital recently for fluid overload and systolic with diastolic congestive he art failure was started on Entresto was in for follow up in the office was feeling well. Patient presented to the emergency department at [facility] today 5 pounds weight gain in the last 24 hours not a clear etiology has been taking his medication regularly. Patient was diagnosed with adrenal insufficiency and had improved been on Cortef and fludrocortisone as well. Patient was treated with IV diuretics his BMPs quite bit high chest x-ray significant for fluid overload and early pulmonary edema. Patient be hospitalized was start him on IV Lasix at drip and try to adjust his medication add spironolactone and maybe Zaroxolyn 18 to control his symptoms better without affecting his blood pressure. 08/11: Patient is continued on a Lasix drip as well as Aldactone 25 mg daily was added for this morning and Entresto dose was increased to 49/51 mg. He has had weight loss of 1-1/2 kg. Patient is complaining of nausea for which Zofran was added. Cardiology is on consult. Discussed discharge planning with option of palliative care which patient and at bedside are open to pursuing. Case management to follow-up. Patient has been afebrile, heart rate in the 90s, blood pressure 124/68 but ran low during the night. Pulse ox 90% on 3 L nasal cannula. Patient has ongoing concerns for depression and Cymbalta added to Celexa. 08/12: Patient has been afebrile, heart rate in the 70s to 90s, blood pressure 109/75, pulse ox 95% on 3 L nasal cannula. White count 6.1, hemoglobin 11.2. Sodium 137, potassium 4.7, chloride 97, CO2 33, BUN 46 and creatinine 2.64. Magnesium 1.9, total bilirubin 2.1, AST is increased to 114, ALT increased to 154 and alkaline phosphatase increased to 95. Repeat pro and be as 19,300. We will order liver ultrasound. IV Lasix will be discontinued and patient started on IV push Lasix 80 mg twice daily and plan to resume home dose at 80 mg orally twice daily tomorrow morning. Patient is having difficulty sleeping and according to his , he often takes a full dose of clonazepam at home for sleep. We will increase dose to 0.5 mg at bedtime as needed. 08/13: Patient has been afebrile, heart rate in the 90s to low 100, blood pressure 106/74, pulse ox 100% on room air. Hemoglobin 11.3, sodium 136, potassium 5.5, chloride 98, CO2 31, BUN 46 and creatinine 2.92. Patient states he is not feeling very well today mostly because his stomach is upset. He has lost 3 kg since admission. We will plan to hold oral Lasix today,stop potassium and Aldactone and start the patient on IV fluids at 75 mL per hour. We will plan to monitor the patient overnight and recheck electrolytes and renal function in the morning. Potassium recheck ordered for this afternoon. 08/14: Repeat potassium yesterday afternoon was 5 and this morning 4.9, BUN 51 and creatinine 3.11. Discharge plan for today will be held and consult with nephrology added. Patient continues to complain of nausea and states that his nerves are really bad today. We have added and Carafate and scopolamine patch as well as low dose Xanax. Entresto dose decreased to 24/26 mg. Plan to monitor renal function and possible discharge the next 48 hours. 08/15: Repeat lab work reveals sodium 134, potassium 5.3, chloride 95, CO2 34, BUN 57 creatinine 3.34. Patient was seen by Dr. Frey yesterday with recommendations to continue to hold current medications. No plan for IV fluids. Patient is quite confused this morning. His states he has only slept about 10 4 hours since his admission on Friday. Also she noticed that he has not urinated since she arrived. Nursing to check bladder scan and monitor I&O's. Patient has been afebrile, heart rate in the 60s to 90s, blood pressure 107/54, pulse ox 94% on room air. Patient was scheduled for discharge today w [facility] will be held. 08/16: Patient has been afebrile, heart rate in the 80s and 90s, blood pressure 1 21/66 and pulse ox 95% on room air. Patient's renal function continues to worsen with BUN of 55 and creatinine 3.47, sodium 134, potassium 5.3, chloride 97, CO2 28. Urinalysis was done which was negative for infection. Patient required a safety engineer due to worsening confusion. His is sitting at the bedside now. Patient did not sleep all through the night. We will discontinue Cymbalta. We will also order a CAT scan of the brain area and we discontinued Xanax yesterday. Patient complains of feeling very nervous. Patient is not had any nausea, vomiting, diarrhea. He has been seen by cardiology and Florinef discontinued and patient to resume Lasix once cleared by nephrology and cleared for discharge. We will add in a consult for psychiatry for anxiety and insomnia. Nephrology is recommending stopping IV fluids and start Lasix tomorrow, bladder scan postvoid. Apparently dialysis was discussed and patient has stated in the past that he does not want hemodialysis. 08/17: CT of the brain showed no acute findings. Patient continues to some confusion but is improved from yesterday. A safety engineer remains at bedside. Patient's is at bedside as well. Patient is having difficulty sleeping because he cannot lay down but unclear if this is related to his anxiety or s hortness of breath. Patient is falling asleep during conversation. His mental status does seem improved since Cymbalta was discontinued. We are awaiting psychiatry input. His lungs are currently clear to auscultation. He does have lower extremity edema. Sodium 135, potassium 5.1, chloride 97, CO2 32, BUN 59 creatinine 3.29. We will resume his home dose of Lasix at 80 mg twice daily. Patient had a bowel movement yesterday. He denies any abdominal pain. 08/18: Repeat lab work shows sodium 135, potassium 5.3, chloride 98, CO2 30, BUN 61 creatinine 3.36. Patient has been seen by psychiatrist Dr. Caballero on the following medication changes have been made: Discontinue Celexa, start Zoloft 5 mg at bedtime, Risperdal 0.5 mg at bedtime, Namenda 5 mg twice daily. Nephrology recommends continuing current dose of Lasix, admitted during and Cortef. Continue to hold Entresto. Patient has been afebrile, heart rate in the 90s to 100, blood pressure 121/78, pulse ox 97% on 3 L nasal cannula. Patient is even more confused today than yesterday. He now cannot walk without assistance. It took 2 people this morning to get into the bathroom and once in the bathroom he didn't know why he was there. He is not eating. He is having difficulty following simple commands. Ammonia level will be ordered. Patient's is at bedside. Review Of Systems: Unable to obtain due to confusion Objective - Vital Signs Vital signs: Vital Signs Temp 97.1 F L 08/17/18 20:44 Pulse 99 08/18/18 04:24 Resp 16 08/18/18 04:24 BP 121/78 08/18/18 04:24 Pulse Ox 97 08/18/18 04:24 Intake & Output 08/17/18 08/18/18 08/18/18 18:59 06:59 18:59 Intake Total 0 350 240 Output Total 400 Balance 0 -50 240 Weight 72.2 kg Intake: Oral 0 350 240 Output: Urine 400 Straight 400 Other: Voiding Method Toilet Toilet Urinal Urinal # Voids 0 0 1 - Exam General Appearance: Mild distress distress, appears stated age. Patient's is at bedside. Neck HEENT: Supple, no lymphadenopathy, no thyroid enlargement, no carotid bruits. Lungs: Clear to auscultation without crackles or wheezes no rhonchi, no deformity. Chest Wall: Decrease expansion with deep inspiration no tenderness and no deformity was found on exam, no costochondral pain or discomfort. Heart: irregular rate and rhythm, S1, S2 normal, positive S3 positive JVD with systolic murmur. Back: Symmetric, no curvature, ROM normal, no CVA tenderness. Abdomen: Soft, non-tender, bowel sounds active all four quadrants, no masses, no organomegaly. Extremities: Trace bilateral edema with slight discoloration from the knee down bilaterally. Pulses: 2+ and symmetric. Skin: Skin color, texture, tugor normal, no rashes or lesions. Neurologic: Alert oriented x1, patient is confused and having difficulty following directions. - Labs CBC & Chem 7: 08/13/18 07:06 08/18/18 06:25 Labs: Abnormal Lab Results - Last 24 Hours (Table) 08/18/18 Range/Units 06:25 Sodium 135 L (137-145) mmol/L Potassium 5.3 H (3.5-5.1) mmol/L BUN 61 H (9-20) mg/dL Creatinine 3.36 H (0.66-1.25) mg/dL Assessment and Plan Plan: 1 acute respiratory distress secondary to acute on chronic systolic heart failure, early pulmonary edema, COPD and fluid overload. Hold Aldactone, Entresto. Continue Coreg 3.125 mg twice daily. Cardiology consult. Continue nebulizer treatments 3 times daily as needed. Entresto on hold. Patient is been resumed on home dose of Lasix 2 acute on chronic systolic heart failure. Continue as in #1. 3 atherosclerotic heart disease. Cardiology consult appreciated. No further intervention. 4 acute kidney injury with chronic kidney disease III. Consult with nephrology added. We have discontinued Lasix, spironolactone, potassium, Entresto. Lasix was resumed yesterday. 5 COPD with mild exacerbation continue patient on DuoNeb and Pulmicort continue O2 try to keep his pulse ox above 90 percentile. 6 chronic atrial fibrillation: Patient remain on amiodarone and Eliquis along with beta emile. 7 BPH: Remain on tamsulosin and Proscar. 8 adrenal insufficiency: Continue Cortef. Florinef discontinued. 9 chronic anemia: No need for blood transfusion. 10 hyperlipidemia: Remain on lovastatin 40 mg daily. 11 hypothyroidism: Continue patient on levothyroxine 25 g daily. 12. Recurrent depression and mild anxiety attacks. Psychiatric consult appreciated. Celexa discontinued, Zoloft 25 mg, Risperdal 0.5 mg at bedtime and Namenda started. 13. DVT prophylaxis. Continue eliquis. 14. GI prophylaxis. Pepcid. 15. Nausea. Continue Zofran 4 mg IV every 6 hours as needed. Scopolamine patch added, Carafate 1 g before meals and at bedtime added. 16. Acute delirium secondary to insomnia and sleep deprivation. Xanax will be discontinued. Cymbalta discontinued. Consult with psychiatry appreciated. Celexa discontinued, Zoloft, Risperdal and Namenda started. CODE STATUS: No code. Discharge plan: Home with [facility] with palliative care in 48 hours. Impression and plan of care have been directed as dictated by the signing physician. Luma Mancera nurse practitioner acting as scribe for signing physician.
[2018-08-18] MEDS: clonazePAM 0.5 MG TAB PO SCH (20:38)
[2018-08-18] MEDS: ATORVASTATIN 10 MG TAB PO SCH (20:39)
[2018-08-18] MEDS: FINASTERIDE 5 MG TAB PO SCH (20:39)
[2018-08-18] MEDS: risperiDONE 0.5 MG TAB PO SCH (20:39)
[2018-08-18] MEDS: SERTRALINE 25 MG TAB PO SCH (20:39)
--- NOTE | 2018-08-18 21:19 | PN ---
PROGRESS NOTE Patient is seen for followup for chronic kidney disease and acute kidney injury. Renal function is fairly stable over the last 3 days with creatinine staying about 3.2-3.4 mg/dL. The patient has been voiding. He has had a few straight cathed for 400 mL. The patient remains confused. He has hallucinations. PHYSICAL EXAMINATION: This morning blood pressure was 102/74, heart rate of 95 per minute. Patient is afebrile. Examination of the heart S1, S2. Examination of the lungs bilateral breath sounds are heard. Decreased breath sounds at bases. Abdomen is soft, nontender. Examination lower extremities shows edema 2+ bilaterally. ASSISTANT PASTRY CHEF exam shows patient is moving all 4 extremities, but is confused. LABS SHOW: Sodium 135, potassium 5.3, BUN 61, serum creatinine 3.36. ASSESSMENT: 1. Acute kidney injury, cardiorenal, currently maintained on IV Lasix which I will continue given his volume overload. Need to continue to monitor for urine retention. 2. Chronic kidney disease stage IIIB to IV, with baseline creatinine 1.8-2.4 mg/dL. Etiology is nephrosclerosis. 3. Severe cardiomyopathy, EF 20-25 percent. 4. Congestive heart failure, acute on top of chronic, mainly systolic. 5. Hypotension maintained on midodrine. The patient is also on Cortef for adrenal insufficiency. 6. Mild hyperkalemia associated with renal failure and perhaps some degree of urine retention. We will continue to monitor for now. I would avoid Kayexalate and continue with loop diuretics. 7. Confusion, status post evaluation by Psychiatry. Patient remains confused at this time. PLAN: DC milk of magnesia and check magnesium level. Continue with Lasix. Repeat labs in a.m. Discussed with . At this time, they are not too keen on any renal replacement therapy. At this time there is no indication for dialysis. MMODL / IJN: [id number] /
[2018-08-19] MEDS: BUDESONIDE 0.5 MG/2 ML NEBU INHALATION SCH ×2 (08:37→19:09)
[2018-08-19] MEDS: TAMSULOSIN 0.4 MG CAP.ER.24H PO SCH (10:14)
[2018-08-19] MEDS: FAMOTIDINE 20 MG TAB PO SCH (10:14)
[2018-08-19] MEDS: LEVOTHYROXINE 25 MCG TAB PO SCH (10:15)
[2018-08-19] MEDS: ALLOPURINOL 100 MG TAB PO SCH (10:15)
[2018-08-19] MEDS: APIXABAN 2.5 MG TABLET PO SCH ×2 (10:15→21:54)
[2018-08-19] MEDS: CARVEDILOL 3.125 MG TAB PO SCH ×2 (10:15→17:25)
[2018-08-19] MEDS: HYDROCORTISONE 10 MG TAB PO SCH ×2 (10:16→21:53)
[2018-08-19 10:24] LABS: Calcium 8.4 mg/dL (8.4-10.2); Potassium 3.9 mmol/L (3.5-5.1)
[2018-08-19] MEDS: SUCRALFATE 1 GM TAB PO SCH ×4 (11:10→21:53)
[2018-08-19] MEDS: MIDODRINE 5 MG TAB PO SCH ×3 (11:18→21:53)
[2018-08-19] MEDS: FUROSEMIDE 80 MG TAB PO SCH ×2 (11:18→17:25)
[2018-08-19] MEDS: MEMANTINE 5 MG TAB PO SCH ×2 (11:18→21:54)
--- NOTE | 2018-08-19 15:27 | P.PN ---
Subjective Progress Note Date: 08/19/18 73-year-old male one of my office patient with multiple medical problem was known to have history of ischemic cardiopathy, CAD, CHF, COPD and A. jesús with RVR who has been seeing cardiology regular basis and was in the hospital recently for fluid overload and systolic with diastolic congestive he art failure was started on Entresto was in for follow up in the office was feeling well. Patient presented to the emergency department at [facility] today 5 pounds weight gain in the last 24 hours not a clear etiology has been taking his medication regularly. Patient was diagnosed with adrenal insufficiency and had improved been on Cortef and fludrocortisone as well. Patient was treated with IV diuretics his BMPs quite bit high chest x-ray significant for fluid overload and early pulmonary edema. Patient be hospitalized was start him on IV Lasix at drip and try to adjust his medication add spironolactone and maybe Zaroxolyn 18 to control his symptoms better without affecting his blood pressure. 08/11: Patient is continued on a Lasix drip as well as Aldactone 25 mg daily was added for this morning and Entresto dose was increased to 49/51 mg. He has had weight loss of 1-1/2 kg. Patient is complaining of nausea for which Zofran was added. Cardiology is on consult. Discussed discharge planning with option of palliative care which patient and at bedside are open to pursuing. Case management to follow-up. Patient has been afebrile, heart rate in the 90s, blood pressure 124/68 but ran low during the night. Pulse ox 90% on 3 L nasal cannula. Patient has ongoing concerns for depression and Cymbalta added to Celexa. 08/12: Patient has been afebrile, heart rate in the 70s to 90s, blood pressure 109/75, pulse ox 95% on 3 L nasal cannula. White count 6.1, hemoglobin 11.2. Sodium 137, potassium 4.7, chloride 97, CO2 33, BUN 46 and creatinine 2.64. Magnesium 1.9, total bilirubin 2.1, AST is increased to 114, ALT increased to 154 and alkaline phosphatase increased to 95. Repeat pro and be as 19,300. We will order liver ultrasound. IV Lasix will be discontinued and patient started on IV push Lasix 80 mg twice daily and plan to resume home dose at 80 mg orally twice daily tomorrow morning. Patient is having difficulty sleeping and according to his , he often takes a full dose of clonazepam at home for sleep. We will increase dose to 0.5 mg at bedtime as needed. 08/13: Patient has been afebrile, heart rate in the 90s to low 100, blood pressure 106/74, pulse ox 100% on room air. Hemoglobin 11.3, sodium 136, potassium 5.5, chloride 98, CO2 31, BUN 46 and creatinine 2.92. Patient states he is not feeling very well today mostly because his stomach is upset. He has lost 3 kg since admission. We will plan to hold oral Lasix today,stop potassium and Aldactone and start the patient on IV fluids at 75 mL per hour. We will plan to monitor the patient overnight and recheck electrolytes and renal function in the morning. Potassium recheck ordered for this afternoon. 08/14: Repeat potassium yesterday afternoon was 5 and this morning 4.9, BUN 51 and creatinine 3.11. Discharge plan for today will be held and consult with nephrology added. Patient continues to complain of nausea and states that his nerves are really bad today. We have added and Carafate and scopolamine patch as well as low dose Xanax. Entresto dose decreased to 24/26 mg. Plan to monitor renal function and possible discharge the next 48 hours. 08/15: Repeat lab work reveals sodium 134, potassium 5.3, chloride 95, CO2 34, BUN 57 creatinine 3.34. Patient was seen by Dr. Frey yesterday with recommendations to continue to hold current medications. No plan for IV fluids. Patient is quite confused this morning. His states he has only slept about 10 4 hours since his admission on Friday. Also she noticed that he has not urinated since she arrived. Nursing to check bladder scan and monitor I&O's. Patient has been afebrile, heart rate in the 60s to 90s, blood pressure 107/54, pulse ox 94% on room air. Patient was scheduled for discharge today w [facility] will be held. 08/16: Patient has been afebrile, heart rate in the 80s and 90s, blood pressure 1 21/66 and pulse ox 95% on room air. Patient's renal function continues to worsen with BUN of 55 and creatinine 3.47, sodium 134, potassium 5.3, chloride 97, CO2 28. Urinalysis was done which was negative for infection. Patient required a safety attendant due to worsening confusion. His is sitting at the bedside now. Patient did not sleep all through the night. We will discontinue Cymbalta. We will also order a CAT scan of the brain area and we discontinued Xanax yesterday. Patient complains of feeling very nervous. Patient is not had any nausea, vomiting, diarrhea. He has been seen by cardiology and Florinef discontinued and patient to resume Lasix once cleared by nephrology and cleared for discharge. We will add in a consult for psychiatry for anxiety and insomnia. Nephrology is recommending stopping IV fluids and start Lasix tomorrow, bladder scan postvoid. Apparently dialysis was discussed and patient has stated in the past that he does not want hemodialysis. 08/17: CT of the brain showed no acute findings. Patient continues to some confusion but is improved from yesterday. A safety attendant remains at bedside. Patient's is at bedside as well. Patient is having difficulty sleeping because he cannot lay down but unclear if this is related to his anxiety or s hortness of breath. Patient is falling asleep during conversation. His mental status does seem improved since Cymbalta was discontinued. We are awaiting psychiatry input. His lungs are currently clear to auscultation. He does have lower extremity edema. Sodium 135, potassium 5.1, chloride 97, CO2 32, BUN 59 creatinine 3.29. We will resume his home dose of Lasix at 80 mg twice daily. Patient had a bowel movement yesterday. He denies any abdominal pain. 08/18: Repeat lab work shows sodium 135, potassium 5.3, chloride 98, CO2 30, BUN 61 creatinine 3.36. Patient has been seen by psychiatrist Dr. Caballero on the following medication changes have been made: Discontinue Celexa, start Zoloft 5 mg at bedtime, Risperdal 0.5 mg at bedtime, Namenda 5 mg twice daily. Nephrology recommends continuing current dose of Lasix, admitted during and Cortef. Continue to hold Entresto. Patient has been afebrile, heart rate in the 90s to 100, blood pressure 121/78, pulse ox 97% on 3 L nasal cannula. Patient is even more confused today than yesterday. He now cannot walk without assistance. It took 2 people this morning to get into the bathroom and once in the bathroom he didn't know why he was there. He is not eating. He is having difficulty following simple commands. Ammonia level will be ordered. Patient's is at bedside. 08/19: Repeat lab work reveals BUN of 57 creatinine 3.06, CO2 34. Ammonia level came back at less than 9. He has been afebrile, heart rate in the 90s, blood pressure 94/59, pulse ox 91% on room air. Physical therapy recommended home with homecare and 24-hour supervision. Patient's mental status is much improved and almost back to his baseline. He didn't ambulate well in the hallway with physical therapy. We will plan to continue current medications and monitor overnight and hopefully if renal function is improved, discharged home tomorrow. Review Of Systems: Constitutional: No fever, no chills, no night sweats. Reports daytime sleepiness. EENT: No headache. No blurred vision or double vision, no loss of vision. Reports loss of Hearing, no ringing in the ears, no dizziness. No nasal drainage or congestion. No epistaxis. Lungs: No shortness of breath, cough, no sputum production. No wheezing. Cardiovascular: No chest pain, no lower extremity edema. No palpitations. No paroxysmal nocturnal dyspnea. No orthopnea. No lightheadedness or dizziness. No syncopal episodes. Abdominal: No abdominal pain. No nausea, vomiting. No diarrhea. No constipation. No bloody or tarry stools.. No loss of appetite. Genitourinary: No dysuria, increased frequency, urgency. No urinary retention. Musculoskeletal: No myalgias. No muscle weakness, no gait dysfunction, no frequent falls. No back pain. No neck pain. Integumentary: No wounds, no lesions. No rash or pruritus. No unusual bruising. No change in hair or nails. Neurologic: No aphasia. No facial droop. No change in mentation. No head injury. No headache. No paralysis. No paresthesia. Psychiatric: No depression. Reports anxiety. Objective - Vital Signs Vital signs: Vital Signs Temp 97.7 F 08/19/18 05:13 Pulse 93 08/19/18 05:13 Resp 16 04/03/19 05:13 BP 94/59 08/19/18 05:13 Pulse Ox 91 L 08/19/18 05:13 Intake & Output 08/18/18 08/19/18 08/19/18 18:59 06:59 18:59 Intake Total 470 710 Balance 470 710 Intake: Oral 470 710 Other: Voiding Method Toilet Toilet Urinal Urinal # Voids 1 3 - Exam General Appearance: This is a 73-year-old male. He is sleeping in bed and wakens easily with verbal stimuli Patient's is at bedside. Neck HEENT: Supple, no lymphadenopathy, no thyroid enlargement, no carotid bruits. Lungs: Clear to auscultation without crackles or wheezes no rhonchi, no deformity. Chest Wall: Decrease expansion with deep inspiration no tenderness and no de formity was found on exam, no costochondral pain or discomfort. Heart: irregular rate and rhythm, S1, S2 normal, positive S3 positive JVD with systolic murmur. Back: Symmetric, no curvature, ROM normal, no CVA tenderness. Abdomen: Soft, non-tender, bowel sounds active all four quadrants, no masses, no organomegaly. Extremities: Trace bilateral edema with slight discoloration from the knee down bilaterally. Pulses: 2+ and symmetric. Skin: Skin color, texture, tugor normal, no rashes or lesions. Neurologic: Alert oriented x3, patient's mentation is back to baseline. - Labs CBC & Chem 7: 08/13/18 07:06 08/19/18 09:13 Labs: Abnormal Lab Results - Last 24 Hours (Table) 08/19/18 Range/Units 09:13 Carbon Dioxide 34 H (22-30) mmol/L BUN 57 H (9-20) mg/dL Creatinine 3.06 H (0.66-1.25) mg/dL Assessment and Plan Plan: 1 acute respiratory distress secondary to acute on chronic systolic heart failure, early pulmonary edema, COPD and fluid overload. Hold Aldactone, Entresto. Continue Coreg 3.125 mg twice daily. Cardiology consult. Continue n ebulizer treatments 3 times daily as needed. Entresto on hold. Patient is been resumed on home dose of Lasix 2 acute on chronic systolic heart failure. Continue as in #1. 3 atherosclerotic heart disease. Cardiology consult appreciated. No further intervention. 4 acute kidney injury with chronic kidney disease III. Consult with nephrology added. We have discontinued Lasix, spironolactone, potassium, Entresto. Lasix was resumed yesterday. 5 COPD with mild exacerbation continue patient on DuoNeb and Pulmicort continue O2 try to keep his pulse ox above 90 percentile. 6 chronic atrial fibrillation: Patient remain on amiodarone and Eliquis along with beta emile. 7 BPH: Remain on tamsulosin and Proscar. 8 adrenal insufficiency: Continue Cortef. Florinef discontinued. 9 chronic anemia: No need for blood transfusion. 10 hyperlipidemia: Remain on lovastatin 40 mg daily. 11 hypothyroidism: Continue patient on levothyroxine 25 g daily. 12. Recurrent depression and mild anxiety attacks. Psychiatric consult appreciated. Celexa discontinued, Zoloft 25 mg, Risperdal 0.5 mg at bedtime and Namenda started. 13. DVT prophylaxis. Continue eliquis. 14. GI prophylaxis. Pepcid. 15. Nausea. Continue Zofran 4 mg IV every 6 hours as needed. Scopolamine patch added, Carafate 1 g before meals and at bedtime added. 16. Acute delirium secondary to insomnia and sleep deprivation. Xanax will be discontinued. Cymbalta discontinued. Consult with psychiatry appreciated. Celexa discontinued, Zoloft, Risperdal and Namenda started. CODE STATUS: No code. Discharge plan: Home with [facility] with palliative care in 24 hours. Impression and plan of care have been directed as dictated by the signing physician. Luma Mancera nurse practitioner acting as scribe for signing physician.
--- NOTE | 2018-08-19 15:56 | PN ---
PROGRESS NOTE Patient is seen for followup for acute kidney injury. This morning he is sleeping. Patient's is present at bedside. She states he has not slept for more than a week and is finally sleeping comfortably. There has not been any complaints of shortness of breath or chest pains. The patient has been voiding. PHYSICAL EXAMINATION: Blood pressure was 94/59, heart rate 88 per minute. Patient is afebrile. Examination shows edema bilateral lower extremities, which is unchanged. The lungs and heart are not examined. The SLOT ATTENDANT examination is grossly intact. Patient has been moving all 4 extremities. Currently, he is sleeping. LABS: Sodium 140, potassium 3.9, BUN 57, serum creatinine 3.06. ASSESSMENT: 1. Acute kidney injury nonoliguric currently improved, mainly cardiorenal. Continue with IV Lasix. 2. Volume overload, slowly improving. Patient is currently fairly comfortable and lying almost flat without any shortness of breath. 3. Chronic kidney disease stage IIIB to IV, with baseline creatinine 1.8-2.4 secondary to nephrosclerosis. 4. Severe cardiomyopathy, EF 20-25 percent. 5. Congestive heart failure, systolic, acute on top of chronic. 6. Mild hyperkalemia, currently improved. 7. Mental status changes associated with hospitalization and sleep deprivation. Currently, patient is sleeping. Hopefully, his mentation will improve. PLAN: Continue with the Lasix. The patient's is encouraged to increase his oral intake as well when he wakes up. Repeat labs in a.m. MMALE / MERARY: [id number] /
[2018-08-19] MEDS: ATORVASTATIN 10 MG TAB PO SCH (21:53)
[2018-08-19] MEDS: clonazePAM 0.5 MG TAB PO SCH (21:53)
[2018-08-19] MEDS: risperiDONE 0.5 MG TAB PO SCH (21:53)
[2018-08-19] MEDS: SERTRALINE 25 MG TAB PO SCH (21:53)
[2018-08-20 05:30] VITALS: RESP 18
[2018-08-20] MEDS: LEVOTHYROXINE 25 MCG TAB PO SCH (06:02)
[2018-08-20] MEDS: ALBUTEROL NEBULIZED 2.5 MG/3 ML INHALATION PRN (07:26)
[2018-08-20] MEDS: BUDESONIDE 0.5 MG/2 ML NEBU INHALATION SCH (07:26)
[2018-08-20] MEDS: CARVEDILOL 3.125 MG TAB PO SCH (07:44)
[2018-08-20 08:57] LABS: Calcium 8.5 mg/dL (8.4-10.2); Potassium 3.6 mmol/L (3.5-5.1)
[2018-08-20] MEDS: APIXABAN 2.5 MG TABLET PO SCH (09:28)
[2018-08-20] MEDS: FUROSEMIDE 80 MG TAB PO SCH (09:28)
[2018-08-20] MEDS: MEMANTINE 5 MG TAB PO SCH (09:28)
[2018-08-20] MEDS: ALLOPURINOL 100 MG TAB PO SCH (09:28)
[2018-08-20] MEDS: FAMOTIDINE 20 MG TAB PO SCH (09:28)
[2018-08-20] MEDS: HYDROCORTISONE 10 MG TAB PO SCH (09:28)
[2018-08-20] MEDS: MIDODRINE 5 MG TAB PO SCH (10:38)
[2018-08-20] MEDS: SUCRALFATE 1 GM TAB PO SCH ×3 (10:39→13:35)
[2018-08-20] MEDS: SCOPOLAMINE 1.5MG/72HR PATCH TRANSDERM SCH (10:48)
[2018-08-20 11:40] VITALS: BP 106/72; PULSE 87; TEMP 97.4
--- NOTE | 2018-08-20 12:25 | CDI ---
Documentation Clarification Form Date: 08/20/2018 12:14:09 PM From: Jackie Millan CCS, CCDS Admit Date: 08/11/2018 1:58:00 PM Patient Name: Kulwant Godoy Visit Number: [id number] Discharge Date: ATTENTION: The Clinical Documentation Specialists (CDI) and [facility] Coding Staff appreciate your assistance in clarifying documentation. Please respond to the clarification below the line at the bottom and electronically sign. The CDI & [facility] Coding staff will review the response and follow-up if needed. Please note: Queries are made part of the Legal Health Record. If you have any questions, please contact the author of this message via ITS. Dr. Brennon Mercado: A diagnosis of anemia lacks specificity to accurately reflect your patients severity of condition and clarification is needed. Admitted with cardiorenal syndrome with KEYANA & volume overload, CKD III, Severe cardiomyopathy w/EF 20-25%, CHF acute exacerbation systolic. History: Atrial Fibrillation, Heart Failure, CVA/TIA, GERD/Reflux, [place], Hyperlipidemia, Hypertension, Memory Impairment, Myocardial Infarction ([place]), OA, Hypothyroid, Stroke behind rt eye-poor vision, macular degeneration harris eyes, migraine cluster headaches, Cardiomyopathy. Sarcoidosis of lungs. Kidney stones, BPH.MRSA. Clinical indicators: Per attending PNs: "chronic anemia: No need for blood transfusion." Hemoglobin: 11.4 - 11.2 - 11.3 Hematocrit: 36.6 - 36.4 - 37.2 Treatment: IV Lasix, Albuterol INH, IV Zofran, IV MagSulfate, IV fluid rate 75, O2 2-3L nc In order to capture the severity of condition, please clarify the type of anemia and etiology if known: Acute blood loss anemia Acute on chronic blood loss anemia Chronic blood loss anemia Iron deficiency anemia Hemolytic anemia Drug induced anemia Nutritional anemia Anemia of chronic kidney disease Unable to determine Other, please specify (Last Revision: February 2017) MTDD
--- NOTE | 2018-08-20 12:44 | P.DS ---
Providers Date of admission: 08/11/18 13:58 Expected date of discharge: 08/20/18 Attending physician: Merritt Patel Consults: 08/10/18 17:08 Consult Physician Routine Consulting Provider: Tunde Urbina Consult Reason/Comments: chf Do you want consulting provider notified?: Yes 08/14/18 11:32 Consult Physician Routine Consulting Provider: Prashant Frey Consult Reason/Comments: KEYANA Do you want consulting provider notified?: Yes 08/16/18 12:05 Consult Physician Routine Consulting Provider: Hernandez Caballero Consult Reason/Comments: anxiety, insomnia Do you want consulting provider notified?: Yes Primary care physician: Merritt Patel [facility] Course: 73-year-old male one of my office patient with multiple medical problem was known to have history of ischemic cardiopathy, CAD, CHF, COPD and A. fib with RVR who has been seeing cardiology regular basis and was in the hospital recently for fluid overload and systolic with diastolic congestive heart failure was started on Entresto was in for follow up in the office was feeling well. Patient presented to the emergency department at [facility] today 5 pounds weight gain in the last 24 hours not a clear etiology has been taking his medication regularly. Patient was diagnosed with adrenal insufficiency and had improved been on Cortef and fludrocortisone as well. Patient was treated with IV diuretics his BMPs quite bit high chest x-ray significant for fluid overload and early pulmonary edema. Patient be hospitalized was start him on IV Lasix at drip and try to adjust his medication add spironolactone and maybe Zaroxolyn 18 to control his symptoms better without affecting his blood pressure. 08/11: Patient is continued on a Lasix drip as well as Aldactone 25 mg daily was added for this morning and Entresto dose was increased to 49/51 mg. He has had weight loss of 1-1/2 kg. Patient is complaining of nausea for which Zofran was added. Cardiology is on consult. Discussed discharge planning with option of palliative care which patient and at bedside are open to pursuing. Case management to follow-up. Patient has been afebrile, heart rate in the 90s, blood pressure 124/68 but ran low during the night. Pulse ox 90% on 3 L nasal cannula. Patient has ongoing concerns for depression and Cymbalta added to Celexa. 08/12: Patient has been afebrile, heart rate in the 70s to 90s, blood pressure 109/75, pulse ox 95% on 3 L nasal cannula. White count 6.1, hemoglobin 11.2. Sodium 137, potassium 4.7, chloride 97, CO2 33, BUN 46 and creatinine 2.64. Magnesium 1.9, total bilirubin 2.1, AST is increased to 114, ALT increased to 154 and alkaline phosphatase increased to 95. Repeat pro and be as 19,300. We will order liver ultrasound. IV Lasix will be discontinued and patient started on IV push Lasix 80 mg twice daily and plan to resume home dose at 80 mg orally twice daily tomorrow morning. Patient is having difficulty sleeping and according to his , he often takes a full dose of clonazepam at home for sleep. We will increase dose to 0.5 mg at bedtime as needed. 08/13: Patient has been afebrile, heart rate in the 90s to low 100, blood pressure 106/74, pulse ox 100% on room air. Hemoglobin 11.3, sodium 136, potassium 5.5, chloride 98, CO2 31, BUN 46 and creatinine 2.92. Patient states he is not feeling very well today mostly because his stomach is upset. He has lost 3 kg since admission. We will plan to hold oral Lasix today,stop potassium and Aldactone and start the patient on IV fluids at 75 mL per hour. We will plan to monitor the patient overnight and recheck electrolytes and renal function in the morning. Potassium recheck ordered for this afternoon. 08/14: Repeat potassium yesterday afternoon was 5 and this morning 4.9, BUN 51 and creatinine 3.11. Discharge plan for today will be held and consult with nephrology added. Patient continues to complain of nausea and states that his nerves are really bad today. We have added and Carafate and scopolamine patch as well as low dose Xanax. Entresto dose decreased to 24/26 mg. Plan to monitor renal function and possible discharge the next 48 hours. 08/15: Repeat lab work reveals sodium 134, potassium 5.3, chloride 95, CO2 34, BUN 57 creatinine 3.34. Patient was seen by Dr. Frey yesterday with recommendations to continue to hold current medications. No plan for IV fluids. Patient is quite confused this morning. His states he has only slept about 10 4 hours since his admission on Friday. Also she noticed that he has not urinated since she arrived. Nursing to check bladder scan and monitor I&O's. Patient has been afebrile, heart rate in the 60s to 90s, blood pressure 107/54, pulse ox 94% on room air. Patient was scheduled for discharge today which will be held. 08/16: Patient has been afebrile, heart rate in the 80s and 90s, blood pressure 121/66 and pulse ox 95% on room air. Patient's renal function continues to worsen with BUN of 55 and creatinine 3.47, sodium 134, potassium 5.3, chloride 97, CO2 28. Urinalysis was done which was negative for infection. Patient required a product safety compliance leader due to worsening confusion. His is sitting at the bedside now. Patient did not sleep all through the night. We will discontinue Cymbalta. We will also order a CAT scan of the brain area and we discontinued Xanax yesterday. Patient complains of feeling very nervous. Patient is not had any nausea, vomiting, diarrhea. He has been seen by cardiology and Florinef discontinued and patient to resume Lasix once cleared by nephrology and cleared for discharge. We will add in a consult for psychiatry for anxiety and insomnia. Nephrology is recommending stopping IV fluids and start Lasix tomorrow, bladder scan postvoid. Apparently dialysis was discussed and patient has stated in the past that he does not want hemodialysis. 08/17: CT of the brain showed no acute findings. Patient continues to some confusion but is improved from yesterday. A product safety compliance leader remains at bedside. Patient's is at bedside as well. Patient is having difficulty sleeping because he cannot lay down but unclear if this is related to his anxiety or shortness of breath. Patient is falling asleep during conversation. His mental status does seem improved since Cymbalta was discontinued. We are awaiting psychiatry input. His lungs are currently clear to auscultation. He does have lower extremity edema. Sodium 135, potassium 5.1, chloride 97, CO2 32, BUN 59 creatinine 3.29. We will resume his home dose of Lasix at 80 mg twice daily. Patient had a bowel movement yesterday. He denies any abdominal pain. 08/18: Repeat lab work shows sodium 135, potassium 5.3, chloride 98, CO2 30, BUN 61 creatinine 3.36. Patient has been seen by psychiatrist Dr. Caballero on the following medication changes have been made: Discontinue Celexa, start Zoloft 5 mg at bedtime, Risperdal 0.5 mg at bedtime, Namenda 5 mg twice daily. Nephrology recommends continuing current dose of Lasix, admitted during and Cortef. Continue to hold Entresto. Patient has been afebrile, heart rate in the 90s to 100, blood pressure 121/78, pulse ox 97% on 3 L nasal cannula. Patient is even more confused today than yesterday. He now cannot walk without assistance. It took 2 people this morning to get into the bathroom and once in the bathroom he didn't know why he was there. He is not eating. He is having difficulty following simple commands. Ammonia level will be ordered. Patient's is at bedside. 08/19: Repeat lab work reveals BUN of 57 creatinine 3.06, CO2 34. Ammonia level came back at less than 9. He has been afebrile, heart rate in the 90s, blood pressure 94/59, pulse ox 91% on room air. Physical therapy recommended home with homecare and 24-hour supervision. Patient's mental status is much improved and almost back to his baseline. He didn't ambulate well in the hallway with physical therapy. We will plan to continue current medications and monitor overnight and hopefully if renal function is improved, discharged home tomorrow. 08/20: Patient's mentation continues to be improved. Pulse ox is 95-100% on room air at rest. He has been afebrile, heart rate in the 80s and 90s, blood pressure 106/72. Repeat lab work shows a sodium of 138, potassium 3.6, chloride 98, CO2 34, BUN 51 and creatinine 2.63. Patient denies any chest pain or shortness of breath. Patient's is at the bedside in place he can be managed at home. The patient will be discharged home today in stable condition. Discharge diagnoses: 1 acute respiratory distress secondary to acute on chronic systolic heart failure, early pulmonary edema, COPD and fluid overload. 2 acute on chronic systolic heart failure. 3 atherosclerotic heart disease. 4 acute kidney injury with chronic kidney disease III. 5 COPD with mild exacerbation 6 chronic atrial fibrillation 7 BPH 8 adrenal insufficiency 9 chronic anemia 10 hyperlipidemia 11 hypothyroidism 12. Recurrent depression and mild anxiety attacks 13. Nausea. 14. Acute delirium secondary to insomnia and sleep deprivation. Discharge plan: Home with [facility] care with palliative care. Impression and plan of care have been directed as dictated by the signing physician. Luma Mancera nurse practitioner acting as scribe for signing physician. Patient Condition at Discharge: Good Plan - Discharge Summary New Discharge Prescriptions: New RX: Memantine [Namenda] 5 mg PO BID #60 tab RX: Famotidine [Pepcid] 20 mg PO DAILY #30 tab RX: risperiDONE [RisperDAL] 0.5 mg PO HS #30 tab RX: Sertraline [Zoloft] 25 mg PO 2100 #30 tab Continue RX: Lovastatin [Mevacor] 40 mg PO HS RX: Dicyclomine [Bentyl] 20 mg PO AC-TID PRN PRN Reason: STOMACH RX: Levothyroxine Sodium [Synthroid] 25 mcg PO DAILY RX: Hydrocortisone [Cortef] 10 mg PO BID #0 RX: Carvedilol [Coreg] 3.125 mg PO BID RX: clonazePAM 0.25 mg PO HS RX: Midodrine HCl [ProAmatine] 10 mg PO TID #0 RX: Albuterol Sulfate [Proair Hfa] 2 puff INHALATION RT-TID PRN PRN Reason: Shortness Of Breath RX: Allopurinol [Zyloprim] 100 mg PO DAILY RX: Finasteride [Proscar] 5 mg PO Q48H RX: Tamsulosin HCl [Flomax] 0.4 mg PO Q48H RX: Amiodarone [Cordarone] 200 mg PO DAILY Eylea 2mg/O.05ml 1 injection RIGHT EYE Q42D RX: Apixaban [Eliquis] 2.5 mg PO BID #60 tab RX: Furosemide [Lasix] 80 mg PO BID@0900,1600 #60 tab Discontinued RX: Citalopram Hydrobromide [Citalopram HBr] 20 mg PO BID RX: Sacubitril/Valsartan [Entresto 24 mg-26 mg Tablet] 1 tab PO BID Fludrocortisone [Florinef] 0.1 mg PO BID Potassium Chloride ER [K-Dur 20] 20 meq PO TID Discharge Medication List RX: Dicyclomine [Bentyl] 20 mg PO AC-TID PRN 10/27/13 [History] RX: Lovastatin [Mevacor] 40 mg PO HS 10/27/13 [History] RX: Levothyroxine Sodium [Synthroid] 25 mcg PO DAILY 03/27/16 [History] RX: Hydrocortisone [Cortef] 10 mg PO BID #0 04/08/18 [Rx] RX: Carvedilol [Coreg] 3.125 mg PO BID 05/06/18 [History] RX: clonazePAM 0.25 mg PO HS 05/06/18 [History] RX: Midodrine HCl [ProAmatine] 10 mg PO TID #0 05/10/18 [Rx] Eylea 2mg/O.05ml 1 injection RIGHT EYE Q42D 07/15/18 [History] RX: Albuterol Sulfate [Proair Hfa] 2 puff INHALATION RT-TID PRN 07/15/18 [History] RX: Allopurinol [Zyloprim] 100 mg PO DAILY 07/15/18 [History] RX: Amiodarone [Cordarone] 200 mg PO DAILY 07/15/18 [History] RX: Finasteride [Proscar] 5 mg PO Q48H 07/15/18 [History] RX: Tamsulosin HCl [Flomax] 0.4 mg PO Q48H 07/15/18 [History] RX: Apixaban [Eliquis] 2.5 mg PO BID #60 tab 07/19/18 [Rx] RX: Furosemide [Lasix] 80 mg PO BID@0900,1600 #60 tab 07/23/18 [Rx] RX: Famotidine [Pepcid] 20 mg PO DAILY #30 tab 08/20/18 [Rx] RX: Memantine [Namenda] 5 mg PO BID #60 tab 08/20/18 [Rx] RX: Sertraline [Zoloft] 25 mg PO 2100 #30 tab 08/20/18 [Rx] RX: risperiDONE [RisperDAL] 0.5 mg PO HS #30 tab 08/20/18 [Rx] Follow up Appointment(s)/Referral(s): Mary Logan MD [STAFF PHYSICIAN] - 1 Week Lis Cárdenas MD [STAFF PHYSICIAN] - 08/20/18 1:30 pm Merritt Patel MD [Primary Care Provider] - 08/19/18 1:00 pm (With Amanda Ott NP.) [facility], [NON-STAFF] - Patient Instructions/Handouts: Heart Failure (DC), Heart Healthy Diet (DC), Pleural Effusion (DC) Discharge Disposition: HOME WITH HOME HEALTH SERVICES
--- NOTE | 2018-08-20 19:44 | PN ---
PROGRESS NOTE Patient is seen for followup for acute kidney injury and volume overload. This morning he is lying in bed. He is comfortable. Mentation has improved. He has improved significantly after being able to sleep. On examination this morning blood pressure was 109/75, heart rate 97 per minute. Patient is afebrile. EXAMINATION OF THE HEART: S1 and S2. EXAMINATION OF LUNGS: Bilateral breath sounds are heard. ABDOMEN: Soft, non-tender. Examination of lower extremities shows edema 1+ bilaterally. SOCIAL WORK JOB TITLES exam is grossly intact. Labs show sodium 138, potassium 3.6, BUN 51, serum creatinine 2.63. ASSESSMENT: 1. Acute kidney injury, mainly cardiorenal, currently significantly improved. 2. Congestive heart failure, acute on top of chronic, mainly systolic, currently improved. 3. Cardiomyopathy, ejection fraction 20% to 25%. 4. Chronic kidney disease, stage IIIB to IV, with baseline creatinine 1.8 to 2.4 secondary to nephrosclerosis. 5. Mental status changes associated with hospitalization and sleep deprivation, currently improved significantly since yesterday. PLAN: Continue with oral Lasix. Monitor labs as outpatient. Patient should follow up as outpatient for CKD. MMODL / IJN: [id number] /
--- NOTE | 2018-08-21 08:20 | CDI ---
Documentation Clarification Form Date: 08/20/2018 12:14:00 PM From: Jackie MongeMillnaPASTORA mccullough, CCDS Admit Date: 08/11/2018 1:58:00 PM Patient Name: Kulwant Godoy Visit Number: [id number] Discharge Date: 08/20/2018 2:30:00 PM ATTENTION: The Clinical Documentation Specialists (CDI) and [facility] Coding Staff appreciate your assistance in clarifying documentation. Please respond to the clarification below the line at the bottom and electronically sign. The CDI & [facility] Coding staff will review the response and follow-up if needed. Please note: Queries are made part of the Legal Health Record. If you have any questions, please contact the author of this message via ITS. Dr. Brennon Mercado: A diagnosis of anemia lacks specificity to accurately reflect your patients severity of condition and clarification is needed. Admitted with cardiorenal syndrome with KEYANA & volume overload, CKD III, Severe cardiomyopathy w/EF 20-25%, CHF acute exacerbation systolic. History: Atrial Fibrillation, Heart Failure, CVA/TIA, GERD/Reflux, [place], Hyperlipidemia, Hypertension, Memory Impairment, Myocardial Infarction ([place]), OA, Hypothyroid, Stroke behind rt eye-poor vision, macular degeneration harris eyes, migraine cluster headaches, Cardiomyopathy. Sarcoidosis of lungs. Kidney stones, BPH.MRSA. Clinical indicators: Per the attending progress notes: "chronic anemia: No need for blood transfusion." Hemoglobin: 11.4 - 11.2 - 11.3 Hematocrit: 36.6 - 36.4 - 37.2 Treatment: IV Lasix, Albuterol INH, IV Zofran, IV MagSulfate, IV fluid rate 75, O2 2-3L nc In order to capture the severity of condition, please clarify the type of anemia and etiology if known: Acute blood loss anemia Acute on chronic blood loss anemia Chronic blood loss anemia Iron deficiency anemia Hemolytic anemia Drug induced anemia Nutritional anemia Anemia of chronic kidney disease Unable to determine Other, please specify (Last Revision: February 2017) MTDD
[2018-09-10] MEDS ORDERED: AFLIBERCEPT RIGHT EYE SCH (09:00)
[2018-09-10] MEDS ORDERED: [UNRECOGNIZED DRUG - OTHER] RIGHT EYE SCH (09:00)
== END 2018-08-20 14:30 | disposition home health service (06) | DRG 291 ==
LOC: EC 13:12 → 3SCARD 17:08 → OBSVTOIN 08-11 13:58 → 3NMEDONC 08-18 22:32
PROVIDERS: ADMIT Internal Medicine Geriatric Medicine; ATTEND Internal Medicine Geriatric Medicine
DX: I13.0 Hypertensive heart and chronic kidney disease with heart failure and stage 1 through stage 4 chronic kidney disease, or unspecified chronic kidney disease (principal); I50.23 Acute on chronic systolic (congestive) heart failure; E27.40 Unspecified adrenocortical insufficiency; N17.9 Acute kidney failure, unspecified; R18.8 Other ascites; F33.9 Major depressive disorder, recurrent, unspecified; J44.1 Chronic obstructive pulmonary disease with (acute) exacerbation; E87.3 Alkalosis; Z66 Do not resuscitate; Z51.5 Encounter for palliative care; E87.5 Hyperkalemia; I95.9 Hypotension, unspecified; I08.1 Rheumatic disorders of both mitral and tricuspid valves; I25.5 Ischemic cardiomyopathy; I48.2 Chronic atrial fibrillation; R06.03 Acute respiratory distress; N18.3 Chronic kidney disease, stage 3 (moderate); I69.398 Other sequelae of cerebral infarction; D64.9 Anemia, unspecified; D86.0 Sarcoidosis of lung; T50.2X5A Adverse effect of carbonic-anhydrase inhibitors, benzothiadiazides and other diuretics, initial encounter; E03.9 Hypothyroidism, unspecified; E78.5 Hyperlipidemia, unspecified; F41.1 Generalized anxiety disorder; I25.10 Atherosclerotic heart disease of native coronary artery without angina pectoris; H91.90 Unspecified hearing loss, unspecified ear; G47.00 Insomnia, unspecified; H35.30 Unspecified macular degeneration; K21.9 Gastro-esophageal reflux disease without esophagitis; N40.0 Benign prostatic hyperplasia without lower urinary tract symptoms; H54.7 Unspecified visual loss; R40.2143 Coma scale, eyes open, spontaneous, at hospital admission; R40.2363 Coma scale, best motor response, obeys commands, at hospital admission; R40.2253 Coma scale, best verbal response, oriented, at hospital admission; G43.909 Migraine, unspecified, not intractable, without status migrainosus; M19.90 Unspecified osteoarthritis, unspecified site; I25.2 Old myocardial infarction; Z99.81 Dependence on supplemental oxygen; Z79.01 Long term (current) use of anticoagulants; Z79.890 Hormone replacement therapy; Z79.899 Other long term (current) drug therapy; Z87.891 Personal history of nicotine dependence; Z86.14 Personal history of Methicillin resistant Staphylococcus aureus infection; Z95.5 Presence of coronary angioplasty implant and graft; Z87.442 Personal history of urinary calculi; Z95.810 Presence of automatic (implantable) cardiac defibrillator; Z72.820 Sleep deprivation; Z98.52 Vasectomy status; Z90.49 Acquired absence of other specified parts of digestive tract; Z88.1 Allergy status to other antibiotic agents; Z91.041 Radiographic dye allergy status; Z91.048 Other nonmedicinal substance allergy status; Z80.42 Family history of malignant neoplasm of prostate; Z84.1 Family history of disorders of kidney and ureter; Z82.49 Family history of ischemic heart disease and other diseases of the circulatory system; Z82.0 Family history of epilepsy and other diseases of the nervous system; Z82.61 Family history of arthritis
CPT/HCPCS: 36415; 70450; 71046; 76705; 80048; 80053; 81001; 82140; 83735; 83880; 84132; 84484; 85025; 85610; 85730; 93005; 94640; 94760; 96365; 96366; 99285

== ENCOUNTER 2019-03-10 08:36 | Day surgery (SDC) | payer MEDICARE ==
[2019-03-08 16:10] VITALS: BMI 19.9
[~2019-03-10 08:36] MED LIST changes: -HALOPERIDOL LACTATE 5 MG/ML 1 ML VIAL IVP ONE; +LACTATED RINGERS 1,000 ML IV SCH; +LIDOCAINE 1% 20 ML VIAL (10MG/ML) FOR IV START INTRADERMA PRN
[2019-03-10 09:10] VITALS: TEMP 97.2
[2019-03-10] MEDS ORDERED: DEXAMETHASONE SOD PHOSPHATE 10 MG/ML 1 ML VIAL IV ONE (09:22)
[2019-03-10] MEDS ORDERED: ONDANSETRON 4 MG/2 ML VIAL IVP ONE (09:22)
[2019-03-10] MEDS ORDERED: ETOMIDATE 2 MG/ML 10 ML VIAL ONE (09:39)
[2019-03-10] MEDS ORDERED: LIDOCAINE 1% INJ 10MG/ML (20 ML MDV) ONE (09:39)
--- NOTE | 2019-03-10 09:50 | P.PCN ---
Date of Procedure: 03/10/19 Procedure(s) Performed: BRIEF HISTORY: Patient is a 73-year-old, pleasant, white male, scheduled for an upper endoscopy as a part of evaluation of epigastric pain for the last few years duration. Symptoms began after Swapnil fundoplication in 2009. He lost 30 pounds since then. He completes of early satiety and epigastric abdominal pain with occasional nausea but no emesis. He also has occasional postprandial diarrhea. He has been on pantoprazole and dicyclomine with no help. PROCEDURE PERFORMED: Esophagogastroduodenoscopy with biopsy. PREOPERATIVE DIAGNOSIS: Epigastric pain, postprandial abdominal bloating and diarrhea of several years duration. IV sedation per anesthesia. PROCEDURE: After informed consent was obtained, the patient was brought into the endoscopy unit. IV sedation was administered by Anesthesia under continuous monitoring. Initially the Olympus GIF-140 video endoscope was inserted into the mouth. Esophagus intubated without any difficulty. It was gradually advanced into the stomach and duodenum and carefully examined. The bulb and the second part of the duodenum appeared normal. Biopsies were done from the duodenum to rule out celiac disease. The scope at this time was withdrawn to the stomach, adequately insufflated with air, and upon careful examination, mucosa of the antrum had a 1 cm polyp that was biopsied. Rest of the body, cardia and the fundus appeared normal. The scope was then withdrawn into the esophagus. Moderate sized hiatal hernia noted. There was evidence of Swapnil fundoplication noted. The GE junction was located at 36 cm from the incisors. The esophagus appeared normal. There were no erosions or ulcerations seen and the patient tolerated the procedure well. IMPRESSION: 1. 1 cm antral polyp status post-biopsy. 2. Moderate size hiatal hernia. RECOMMENDATIONS: The findings of this examination were discussed with the patie nt as well as his family. He was advised to follow with the biopsy results and he'll be seen in office in one to 2 weeks. He will continue with current medications for now.
[2019-03-10 10:11] VITALS: BP 117/77; PULSE 73; RESP 18
== END 2019-03-10 11:02 | disposition home or self-care (01) ==
LOC: ORWHC2ENDO 08:36
PROVIDERS: ATTEND Internal Medicine Gastroenterology
DX: K29.50 Unspecified chronic gastritis without bleeding (principal); K44.9 Diaphragmatic hernia without obstruction or gangrene; K22.8 Other specified diseases of esophagus; I13.0 Hypertensive heart and chronic kidney disease with heart failure and stage 1 through stage 4 chronic kidney disease, or unspecified chronic kidney disease; I50.9 Heart failure, unspecified; N18.4 Chronic kidney disease, stage 4 (severe); N20.0 Calculus of kidney; E78.5 Hyperlipidemia, unspecified; I48.91 Unspecified atrial fibrillation; I42.9 Cardiomyopathy, unspecified; D86.9 Sarcoidosis, unspecified; I69.398 Other sequelae of cerebral infarction; H53.9 Unspecified visual disturbance; H91.90 Unspecified hearing loss, unspecified ear; M19.90 Unspecified osteoarthritis, unspecified site; R41.3 Other amnesia; G43.909 Migraine, unspecified, not intractable, without status migrainosus; K21.9 Gastro-esophageal reflux disease without esophagitis; R13.10 Dysphagia, unspecified; I08.1 Rheumatic disorders of both mitral and tricuspid valves; I45.2 Bifascicular block; I25.2 Old myocardial infarction; Z87.891 Personal history of nicotine dependence; Z87.820 Personal history of traumatic brain injury; Z87.11 Personal history of peptic ulcer disease; Z79.890 Hormone replacement therapy; Z79.899 Other long term (current) drug therapy; Z79.01 Long term (current) use of anticoagulants; Z91.041 Radiographic dye allergy status; Z88.8 Allergy status to other drugs, medicaments and biological substances; Z91.048 Other nonmedicinal substance allergy status; Z88.0 Allergy status to penicillin; Z95.810 Presence of automatic (implantable) cardiac defibrillator; Z98.890 Other specified postprocedural states; Z97.2 Presence of dental prosthetic device (complete) (partial); Z95.818 Presence of other cardiac implants and grafts
CPT/HCPCS: 88305; 88342; 43239; J1100; J2405; J2001

== ENCOUNTER 2020-01-02 19:14 | Inpatient (IN) | payer MEDICARE ==
[2020-01-02] MEDS ORDERED: LORazepam 2 MG/ML INJ IV STA (19:40)
[2020-01-02] MEDS ORDERED: IPRATROPIUM-ALBUTEROL 3 ML NEB INHALATION STA (19:40)
--- NOTE | 2020-01-02 19:46 | ED ---
SOB HPI - General Chief Complaint: Shortness of Breath Stated Complaint: SOB Time Seen by Provider: 01/02/20 19:37 Source: patient, RN notes reviewed, old records reviewed Mode of arrival: ambulatory Limitations: no limitations - History of Present Illness Initial Comments: This is a 74-year-old male with history of CHF remote history of smoking coming or shortness of breath. No fevers. Patient states it is worsening throughout the day tonight and severely anxious secondary to shortness of breath. Mild nausea no vomiting recent travel history or sick contacts. No recent inpatient hospitalization MD Complaint: shortness of breath, pain with inspiration, anxiety -: days(s) Severity: severe Consistency: constant Improves With: oxygen, rest Worsens With: lying flat, exertion, movement Known History Of: congestive heart failure Context: recent URI, anxiety, recent illness Associated Symptoms: chest pain, pain with inspiration, cough - Related Data Home Medications Medication Instructions Recorded Confirmed Dicyclomine [Bentyl] 20 mg PO AC-TID PRN 10/27/13 01/02/20 Lovastatin [Mevacor] 40 mg PO HS 10/27/13 01/02/20 Amiodarone [Cordarone] 200 mg PO QAM 07/15/18 01/02/20 Finasteride [Proscar] 5 mg PO DAILY 07/15/18 01/02/20 Tamsulosin HCl [Flomax] 0.4 mg PO HS 07/15/18 01/02/20 Albuterol Sulfate [Proair Hfa] 2 puff INHALATION RT-TID PRN 12/07/18 01/02/20 Potassium Chloride ER [K-Dur 20] 20 meq PO DAILY 12/07/18 01/02/20 oxyCODONE-APAP 7.5-325MG [Percocet 0.5 - 1 tab PO Q8H PRN 12/07/18 01/02/20 7.5-325 mg] Furosemide [Lasix] 40 mg PO BID-W/MEALS 03/08/19 01/02/20 Furosemide [Lasix] 80 mg PO QAM 03/08/19 01/02/20 Levothyroxine Sodium [Synthroid] 50 mcg PO DAILY 03/08/19 01/02/20 calcitrioL [Calcitriol] 0.25 mcg PO DAILY 03/08/19 01/02/20 Carvedilol [Coreg] 3.125 mg PO BID 01/02/20 01/02/20 Ergocalciferol (Vitamin D2) 50,000 unit PO Q30D 01/02/20 01/02/20 [Drisdol] Zolpidem [Ambien] 7.5 mg PO HS PRN 01/02/20 01/02/20 allopurinoL [Zyloprim] 100 mg PO BID 01/02/20 01/02/20 Previous Rx's Medication Instructions Recorded Hydrocortisone [Cortef] 10 mg PO BID #0 04/08/18 Midodrine HCl [ProAmatine] 10 mg PO TID #0 05/10/18 Apixaban [Eliquis] 2.5 mg PO BID #60 tab 07/19/18 Allergies Allergy/AdvReac Type Severity Reaction Status Date / Time Iodinated Contrast Media Allergy Rash/Hives Verified 01/02/20 21:46 [Iodinated Contrast Media - IV Dye] nitroglycerin Allergy passed out Verified 01/02/20 21:46 adhesive AdvReac SKIN TURNS Verified 01/02/20 21:46 RED piperacillin sodium AdvReac Confusion Verified 01/02/20 21:46 [From Zosyn] tazobactam sodium AdvReac Confusion Verified 01/02/20 21:46 [From Zosyn] Review of Systems ROS Statement: Those systems with pertinent positive or pertinent negative responses have been documented in the HPI. ROS Other: All systems not noted in ROS Statement are negative. Past Medical History Past Medical History: Atrial Fibrillation, Heart Failure, CVA/TIA, Eye Disorder, GERD/Reflux, Hearing Disorder / Deafness, Hyperlipidemia, Hypertension, Memory Impairment, Myocardial Infarction (NM), Osteoarthritis (OA), Prostate Disorder, Renal Disease, Respiratory Disorder, Thyroid Disorder Additional Past Medical History / Comment(s): dysphagia, prev dilation, stage 4 kidney failure, stroke behind rt eye-poor vision, macular degeneration harris eyes, migraine & cluster headaches, NM's x 2 (age unknown), cardiomyopathy, hole in stomach from excedrin -it caused aspiration after which he was in an induced coma and on a ventilator for 9 days, 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 Last Myocardial Infarction Date:: unknown History of Any Multi-Drug Resistant Organisms: MRSA Date of last positivie culture/infection: 08/15/09 MDRO Source:: LUNGS Past Surgical History: AICD, Bowel Resection, Heart Catheterization With Stent, Hernia Repair, Orthopedic Surgery, Pacemaker, Prostate Surgery, Tonsillectomy Additional Past Surgical History / Comment(s): EGD with dilation, 12/28/14 Lap jose fundoplasty with mesh and lap lysis of adhesions. AICD 2008 with replacement 08/2013 (medtronic), 1995 bowel resection d/t perforation with colostomy with eventual reversal of colostomy, 2009-surgery for "hole in stomach", 2007 blephoplasty bilaterally, 2001 deviated septum, 2003 TURP, 1975 vasectomy, 02/2013 R rotator cuff, numerous lipoma removals-4 from L leg, 05/2014, 08/2013 EGD for removal of dentist spray nozzle, 1955 Head surgery at [facility], 1975 vasectomy, lithrotripsy, bilateral inquinal hernia repairs with R side done x3, Past Anesthesia/Blood Transfusion Reactions: Postoperative Nausea & Vomiting (PONV) Additional Past Anesthesia/Blood Transfusion Reaction / Comment(s): Pt has never recieved blood Date of Last Stent Placement:: 2007 Type of Cardiac Device: AICD Device Placement Date:: 08/2013 Medtronic Past Psychological History: Anxiety, Depression Past Alcohol Use History: None Reported Past Drug Use History: None Reported - Past Family History Brother(s) Family Medical History: Cancer Additional Family Medical History / Comment(s): Patient has 2 brothers that are both alive. One has history of prostate cancer. Father Family Medical History: Renal Disease, Respiratory Disorder Additional Family Medical History / Comment(s): Father at age 75 from renal failure. Mother Family Medical History: Coronary Artery Disease (CAD), Dementia Additional Family Medical History / Comment(s): Mother at age 94 from Alzheimer dementia. Sister(s) Family Medical History: Osteoarthritis (OA) Additional Family Medical History / Comment(s): Patient has one sister with osteoarthritis. General Exam Limitations: no limitations General appearance: alert, anxious, in distress Head exam: Present: atraumatic, normocephalic, normal inspection Eye exam: Present: normal appearance, PERRL, EOMI. Absent: scleral icterus, conjunctival injection, periorbital swelling ENT exam: Present: normal exam, mucous membranes moist Neck exam: Present: normal inspection. Absent: tenderness, meningismus, lymphadenopathy Respiratory exam: Present: respiratory distress, wheezes, rhonchi, decreased breath sounds, prolonged expiratory. Absent: rales, stridor Cardiovascular Exam: Present: regular rate, normal rhythm, normal heart sounds. Absent: systolic murmur, diastolic murmur, rubs, gallop, clicks GI/Abdominal exam: Present: soft, normal bowel sounds. Absent: distended, tenderness, guarding, rebound, rigid Extremities exam: Present: normal inspection, full ROM, normal capillary refill. Absent: tenderness, pedal edema, joint swelling, calf tenderness Back exam: Present: normal inspection Neurological exam: Present: alert, oriented X3, CN II-XII intact Psychiatric exam: Present: normal affect, normal mood Skin exam: Present: warm, dry, intact, normal color. Absent: rash Course Vital Signs 01/02/20 01/02/20 01/02/20 19:15 19:38 19:49 Temperature 97.9 F Pulse Rate 85 72 Pulse Rate [ Left] Respiratory 30 H 28 H Rate Blood Pressure 119/81 Blood Pressure [Left Arm] O2 Sat by Pulse 98 Oximetry 01/02/20 01/02/20 01/02/20 20:04 20:54 21:09 Temperature 97.9 F Pulse Rate 70 72 Pulse Rate [ 61 Left] Respiratory 20 19 Rate Blood Pressure 111/83 Blood Pressure 123/76 [Left Arm] O2 Sat by Pulse 96 97 Oximetry - Reevaluation(s) Reevaluation #1: 01/02/20 19:46 Medical records reviewed Reevaluation #2: Patient has no significant improvement in breathing here in the ER No chest pain Patient informed results and findings, questions answered Medical Decision Making - Medical Decision Making 74 male DF for evaluation shortness of breath and CHF. Patient be admitted for diuresis, monitoring or shortness of breath mild anxiety - Lab Data Result diagrams: 01/03/20 05:28 01/04/20 05:35 Lab Results 01/02/20 01/02/20 01/02/20 Range/Units 19:46 19:46 19:46 WBC 7.8 (3.8-10.6) k/uL RBC 4.12 L (4.30-5.90) m/uL Hgb 13.6 (13.0-17.5) gm/dL Hct 42.3 (39.0-53.0) % MCV 102.7 H (80.0-100.0) fL MCH 33.0 (25.0-35.0) pg MCHC 32.2 (31.0-37.0) g/dL RDW 14.6 (11.5-15.5) % Plt Count 203 (150-450) k/uL Neutrophils % 70 % Lymphocytes % 13 % Monocytes % 11 % Eosinophils % 3 % Basophils % 1 % Neutrophils # 5.4 (1.3-7.7) k/uL Lymphocytes # 1.0 (1.0-4.8) k/uL Monocytes # 0.8 (0-1.0) k/uL Eosinophils # 0.2 (0-0.7) k/uL Basophils # 0.1 (0-0.2) k/uL Macrocytosis Slight PT 10.4 (9.0-12.0) sec INR 1.0 (<1.2) APTT 21.5 L (22.0-30.0) sec Sodium 137 (137-145) mmol/L Potassium 5.4 H (3.5-5.1) mmol/L Chloride 100 (98-107) mmol/L Carbon Dioxide 30 (22-30) mmol/L Anion Gap 7 mmol/L BUN 56 H (9-20) mg/dL Creatinine 2.55 H (0.66-1.25) mg/dL Est GFR (CKD-EPI)AfAm 27 (>60 ml/min/1.73 sqM) Est GFR (CKD-EPI)NonAf 24 (>60 ml/min/1.73 sqM) Glucose 102 H (74-99) mg/dL Plasma Lactic Acid Jun (0.7-2.0) mmol/L Calcium 8.7 (8.4-10.2) mg/dL Magnesium 2.3 (1.6-2.3) mg/dL Total Bilirubin 1.0 (0.2-1.3) mg/dL AST 39 (17-59) U/L ALT 14 (4-49) U/L Alkaline Phosphatase 60 (38-126) U/L Creatine Kinase 50 L (55-170) U/L CK-MB (CK-2) (0.0-2.4) ng/mL Troponin I (0.000-0.034) ng/mL NT-Pro-B Natriuret Pep pg/mL Total Protein 7.1 (6.3-8.2) g/dL Albumin 4.1 (3.5-5.0) g/dL TSH (0.465-4.680) mIU/L Free T4 (0.78-2.19) ng/dL 01/02/20 01/02/20 01/02/20 Range/Units 19:46 19:46 19:46 WBC (3.8-10.6) k/uL RBC (4.30-5.90) m/uL Hgb (13.0-17.5) gm/dL Hct (39.0-53.0) % MCV (80.0-100.0) fL MCH (25.0-35.0) pg MCHC (31.0-37.0) g/dL RDW (11.5-15.5) % Plt Count (150-450) k/uL Neutrophils % % Lymphocytes % % Monocytes % % Eosinophils % % Basophils % % Neutrophils # (1.3-7.7) k/uL Lymphocytes # (1.0-4.8) k/uL Monocytes # (0-1.0) k/uL Eosinophils # (0-0.7) k/uL Basophils # (0-0.2) k/uL Macrocytosis PT (9.0-12.0) sec INR (<1.2) APTT (22.0-30.0) sec Sodium (137-145) mmol/L Potassium (3.5-5.1) mmol/L Chloride (98-107) mmol/L Carbon Dioxide (22-30) mmol/L Anion Gap mmol/L BUN (9-20) mg/dL Creatinine (0.66-1.25) mg/dL Est GFR (CKD-EPI)AfAm (>60 ml/min/1.73 sqM) Est GFR (CKD-EPI)NonAf (>60 ml/min/1.73 sqM) Glucose (74-99) mg/dL Plasma Lactic Acid Jun 1.6 (0.7-2.0) mmol/L Calcium (8.4-10.2) mg/dL Magnesium (1.6-2.3) mg/dL Total Bilirubin (0.2-1.3) mg/dL AST (17-59) U/L ALT (4-49) U/L Alkaline Phosphatase (38-126) U/L Creatine Kinase (55-170) U/L CK-MB (CK-2) (0.0-2.4) ng/mL Troponin I 0.013 (0.000-0.034) ng/mL NT-Pro-B Natriuret Pep 4810 pg/mL Total Protein (6.3-8.2) g/dL Albumin (3.5-5.0) g/dL TSH (0.465-4.680) mIU/L Free T4 (0.78-2.19) ng/dL 01/02/20 01/02/20 01/03/20 Range/Units 19:46 22:46 01:28 WBC (3.8-10.6) k/uL RBC (4.30-5.90) m/uL Hgb (13.0-17.5) gm/dL Hct (39.0-53.0) % MCV (80.0-100.0) fL MCH (25.0-35.0) pg MCHC (31.0-37.0) g/dL RDW (11.5-15.5) % Plt Count (150-450) k/uL Neutrophils % % Lymphocytes % % Monocytes % % Eosinophils % % Basophils % % Neutrophils # (1.3-7.7) k/uL Lymphocytes # (1.0-4.8) k/uL Monocytes # (0-1.0) k/uL Eosinophils # (0-0.7) k/uL Basophils # (0-0.2) k/uL Macrocytosis PT (9.0-12.0) sec INR (<1.2) APTT (22.0-30.0) sec Sodium (137-145) mmol/L Potassium (3.5-5.1) mmol/L Chloride (98-107) mmol/L Carbon Dioxide (22-30) mmol/L Anion Gap mmol/L BUN (9-20) mg/dL Creatinine (0.66-1.25) mg/dL Est GFR (CKD-EPI)AfAm (>60 ml/min/1.73 sqM) Est GFR (CKD-EPI)NonAf (>60 ml/min/1.73 sqM) Glucose (74-99) mg/dL Plasma Lactic Acid Jun (0.7-2.0) mmol/L Calcium (8.4-10.2) mg/dL Magnesium (1.6-2.3) mg/dL Total Bilirubin (0.2-1.3) mg/dL AST (17-59) U/L ALT (4-49) U/L Alkaline Phosphatase (38-126) U/L Creatine Kinase (55-170) U/L CK-MB (CK-2) 0.8 (0.0-2.4) ng/mL Troponin I 0.015 <0.012 (0.000-0.034) ng/mL NT-Pro-B Natriuret Pep pg/mL Total Protein (6.3-8.2) g/dL Albumin (3.5-5.0) g/dL TSH (0.465-4.680) mIU/L Free T4 (0.78-2.19) ng/dL 01/03/20 01/03/20 01/03/20 Range/Units 05:28 05:28 05:28 WBC 6.8 (3.8-10.6) k/uL RBC 4.12 L (4.30-5.90) m/uL Hgb 13.4 (13.0-17.5) gm/dL Hct 42.5 (39.0-53.0) % MCV 103.2 H (80.0-100.0) fL MCH 32.5 (25.0-35.0) pg MCHC 31.5 (31.0-37.0) g/dL RDW 14.6 (11.5-15.5) % Plt Count 194 (150-450) k/uL Neutrophils % 70 % Lymphocytes % 15 % Monocytes % 9 % Eosinophils % 3 % Basophils % 1 % Neutrophils # 4.8 (1.3-7.7) k/uL Lymphocytes # 1.0 (1.0-4.8) k/uL Monocytes # 0.6 (0-1.0) k/uL Eosinophils # 0.2 (0-0.7) k/uL Basophils # 0.1 (0-0.2) k/uL Macrocytosis Slight PT (9.0-12.0) sec INR (<1.2) APTT (22.0-30.0) sec Sodium 139 (137-145) mmol/L Potassium 4.3 (3.5-5.1) mmol/L Chloride 100 (98-107) mmol/L Carbon Dioxide 34 H (22-30) mmol/L Anion Gap 5 mmol/L BUN 55 H (9-20) mg/dL Creatinine 2.55 H (0.66-1.25) mg/dL Est GFR (CKD-EPI)AfAm 27 (>60 ml/min/1.73 sqM) Est GFR (CKD-EPI)NonAf 24 (>60 ml/min/1.73 sqM) Glucose 103 H (74-99) mg/dL Plasma Lactic Acid Jun (0.7-2.0) mmol/L Calcium 8.9 (8.4-10.2) mg/dL Magnesium (1.6-2.3) mg/dL Total Bilirubin 0.7 (0.2-1.3) mg/dL AST 22 (17-59) U/L ALT 13 (4-49) U/L Alkaline Phosphatase 64 (38-126) U/L Creatine Kinase (55-170) U/L CK-MB (CK-2) (0.0-2.4) ng/mL Troponin I (0.000-0.034) ng/mL NT-Pro-B Natriuret Pep pg/mL Total Protein 6.6 (6.3-8.2) g/dL Albumin 3.8 (3.5-5.0) g/dL TSH 10.900 H (0.465-4.680) mIU/L Free T4 1.76 (0.78-2.19) ng/dL - EKG Data -: EKG Interpreted by Me (EKG is a flutter 78 QRS O2 QTc 456) - Radiology Data Radiology results: report reviewed (Chest x-ray does show mild worsening pulmonary edema), image reviewed Disposition Clinical Impression: Renal insufficiency, Acute on chronic systolic (congestive) heart failure, Atrial fibrillation, Acute pulmonary edema Disposition: ADMITTED IP TO THIS [facility] Condition: Good Is patient prescribed a controlled substance at d/c from ED?: No
--- NOTE | 2020-01-02 19:55 | XR ---
EXAMINATION TYPE: XR chest 1V portable DATE OF EXAM: 01/02/2020 COMPARISON: 08/10/2018 HISTORY: Short of breath TECHNIQUE: FINDINGS: Heart is enlarged. There is coarsening of interstitial markings. There is mild pulmonary co ngestion. There is left axillary pacemaker. IMPRESSION: Cardiomegaly and probable mild heart failure. There is significant clearing of the lower lobe pulmonary infiltrates compared to old exam.
[2020-01-02 20:13] LABS: Basophils # (A) 0.1 k/uL (0-0.2); Basophils % (A) 1 %; Eosinophils # (A) 0.2 k/uL (0-0.7); Eosinophils % (A) 3 %; HCT 42.3 % (39.0-53.0); HGB 13.6 gm/dL (13.0-17.5); Lymphocytes % (A) 13 %; MCHC 32.2 g/dL (31.0-37.0); MCV 102.7 fL (80.0-100.0); Macrocytosis Slight; Mean Platelet Volume 9.1; Monocytes # (A) 0.8 k/uL (0-1.0); Monocytes % (A) 11 %; Neutrophils # (A) 5.4 k/uL (1.3-7.7); Neutrophils % (A) 70 %; Platelet Count 203 k/uL (150-450); RBC 4.12 m/uL (4.30-5.90); RDW 14.6 % (11.5-15.5); WBC 7.8 k/uL (3.8-10.6)
[2020-01-02 20:25] LABS: Albumin 4.1 g/dL (3.5-5.0); Calcium 8.7 mg/dL (8.4-10.2); Magnesium 2.3 mg/dL (1.6-2.3); Total Protein 7.1 g/dL (6.3-8.2)
[2020-01-02 20:31] LABS: Partial Thromboplastin Time 21.5 sec (22.0-30.0); Prothrombin Time 10.4 sec (9.0-12.0)
[2020-01-02 20:32] LABS: Potassium 5.4 mmol/L (3.5-5.1)
[2020-01-02] MEDS ORDERED: DICYCLOMINE 20 MG TAB PO PRN (22:32)
[2020-01-02] MEDS ORDERED: ZOLPIDEM 5 MG TAB PO PRN (22:32)
[2020-01-02] MEDS ORDERED: ALBUTEROL NEBULIZED 2.5 MG/3 ML INHALATION PRN (22:32)
[2020-01-02] MEDS: FUROSEMIDE 10 MG/ML 4 ML VIAL IV SCH (22:35)
[2020-01-03] MEDS: FUROSEMIDE 10 MG/ML 4 ML VIAL IV SCH ×3 (05:11→21:03)
[2020-01-03 05:38] LABS: Basophils # (A) 0.1 k/uL (0-0.2); Basophils % (A) 1 %; Eosinophils # (A) 0.2 k/uL (0-0.7); Eosinophils % (A) 3 %; HCT 42.5 % (39.0-53.0); HGB 13.4 gm/dL (13.0-17.5); Lymphocytes % (A) 15 %; MCH 32.5 pg (25.0-35.0); MCHC 31.5 g/dL (31.0-37.0); MCV 103.2 fL (80.0-100.0); Macrocytosis Slight; Mean Platelet Volume 11.6; Monocytes # (A) 0.6 k/uL (0-1.0); Monocytes % (A) 9 %; Neutrophils # (A) 4.8 k/uL (1.3-7.7); Neutrophils % (A) 70 %; Platelet Count 194 k/uL (150-450); RBC 4.12 m/uL (4.30-5.90); RDW 14.6 % (11.5-15.5); WBC 6.8 k/uL (3.8-10.6)
[2020-01-03 05:57] LABS: Albumin 3.8 g/dL (3.5-5.0); Calcium 8.9 mg/dL (8.4-10.2); Potassium 4.3 mmol/L (3.5-5.1); Total Bilirubin 0.7 mg/dL (0.2-1.3); Total Protein 6.6 g/dL (6.3-8.2)
[2020-01-03] MEDS: LEVOTHYROXINE 50 MCG TAB PO SCH (06:00)
[2020-01-03] MEDS ORDERED: FUROSEMIDE 40 MG TAB PO SCH ×2 (07:30→09:00)
[2020-01-03] MEDS: IPRATROPIUM-ALBUTEROL 3 ML NEB INHALATION PRN ×3 (08:34→16:10)
[2020-01-03] MEDS: HYDROCORTISONE 10 MG TAB PO SCH ×2 (10:32→21:05)
[2020-01-03] MEDS: PANTOPRAZOLE 40 MG TABLET PO SCH (10:33)
[2020-01-03] MEDS: APIXABAN 2.5 MG TABLET PO SCH ×2 (10:34→21:05)
[2020-01-03] MEDS: FINASTERIDE 5 MG TAB PO SCH (10:34)
[2020-01-03] MEDS: MIDODRINE 5 MG TAB PO SCH ×3 (10:34→18:07)
[2020-01-03] MEDS: POTASSIUM CHLORIDE ER 20 MEQ TAB.ER PO SCH (10:35)
[2020-01-03] MEDS: carvediloL 3.125 MG TAB PO SCH ×2 (10:35→18:07)
[2020-01-03] MEDS: allopurinoL 100 MG TAB PO SCH ×2 (10:35→21:47)
[2020-01-03] MEDS: AMIODARONE 200 MG TAB PO SCH (10:35)
[2020-01-03] MEDS: oxyCODONE-APAP 7.5-325MG 1 EACH TAB PO PRN ×2 (10:36→18:10)
--- NOTE | 2020-01-03 10:44 | ECHOF ---
Referral Reason:chf MEASUREMENTS -------- HEIGHT: 182.9 cm WEIGHT: 70.3 kg BP: 104/72 RVIDd: 3.7 cm (< 3.3) IVSd: 1.5 cm (0.6 - 1.1) LVIDd: 5.6 cm (3.9 - 5.3) LVPWd: 1.4 cm (0.6 - 1.1) IVSs: 1.4 cm LVIDs: 5.6 cm LVPWs: 1.4 cm LA Diam: 6.7 cm (2.7 - 3.8) LAESV Index (A-L): 100.55 ml/m Ao Diam: 3.4 cm (2.0 - 3.7) AV Cusp: 1.7 cm (1.5 - 2.6) MV EXCURSION: 22.703 mm (> 18.000) MV EF SLOPE: 130 mm/s (70 - 150) EPSS: 1.7 cm RAP: 5.00 mmHg RVSP: 30.43 mmHg FINDINGS -------- AICD This was a technically excellent study. The left ventricular size is normal. There is moderate concentric left ventricular hypertrophy. O verall left ventricular systolic function is severely impaired with, an EF between 25 - 30 %. The right ventricle is mild to moderately enlarged. LA is severely dilated >40 ml/m2 The right atrium is normal in size. Interatrial and interventricular septum intact. The aortic valve is trileaflet and appears structurally normal. The mitral valve leaflets are mildly thickened. Mild mitral annular calcification present. Modera [id number] mitral regurgitation is present. Mild tricuspid regurgitation present. Trace/mild (physiologic) pulmonic regurgitation. The aortic root size is normal. Normal inferior vena cava with normal inspiratory collapse consistent with estimated right atrial pre ssure of 5 mmHg. There is a small, generalized pericardial effusion present. CONCLUSIONS -------- 1. AICD 2. The left ventricular size is normal. 3. There is moderate concentric left ventricular hypertrophy. 4. Overall left ventricular systolic function is severely impaired with, an EF between 25 - 30 %. 5. The right ventricle is mild to moderately enlarged. 6. LA is severely dilated >40 ml/m2 7. The aortic valve is trileaflet and appears structurally normal. 8. The mitral valve leaflets are mildly thickened. 9. Mild mitral annular calcification present. 10. [id number] mitral regurgitation is present. 11. Trace/mild (physiologic) pulmonic regurgitation. 12. There is a small, generalized pericardial effusion present. BEEF BONER: DEZ Cabello
--- NOTE | 2020-01-03 11:10 | P.HPIM ---
History of Present Illness H&P Date: 01/03/20 Chief Complaint: shortness of breath HISTORY OF PRESENT ILLNESS This is a 74-year-old male one of Dr. Patel with a previous medical history significant for hypertension and hypertensive cardiovascular disease, hyperlipidemia, memory impairment, osteoarthritis, history of chronic systolic heart failure, persistent atrial fibrillation, cardiomyopathy with prior AICD implantation, history of hiatal hernia status post Jose fundoplication, benign prostatic hypertrophy, adrenal insufficiency, chronic kidney disease stage 4, anemia of chronic kidney disease, hypothyroidism, COPD, recurrent depression. His last hospitalization was in August 2018 at which time he was treated for acute on chronic systolic heart failure and COPD, acute kidney injury. Patient states that for the past 2-3 days in a row he feels like he is filling up with fluid. He has increasing shortness of breath with PND and orthopnea. He denies having any chest pain. He states he is only able to sleep about 10 minutes at a time. Patient came into [facility] for evaluation. He was found to be afebrile, heart rate 85, respiratory rate 30, blood pressure 119/81, pulse ox 98% on room air. CBC was unremarkable. Sodium 137, potassium 5.4, chloride 100, CO2 30, BUN 56 and creatinine 2.55. Blood sugar 102. Lactic acid 1.6. Magnesium 2.3. Liver function tests normal. EKG is atrial flutter. Chest x-ray reveals cardiomegaly and probable mild heart failure. Significant clearing of the lower lobe pulmonary infiltrates compared to old exam. [facility], continue IV Lasix, consult cardiology and nephrology. REVIEW OF SYSTEMS Constitutional: No fever, no chills, no night sweats. reports weakness, reports fatigue. reports daytime sleepiness. EENT: No headache. No blurred vision or double vision, no loss of vision. No loss of Hearing, no ringing in the ears, no dizziness. No nasal drainage or congestion. No epistaxis. No sore throat. Lung Reports shortness of breath, knowncough, no sputum production. No wheezing. Cardiovascular: No chest pain, reports lower extremity edema. No palpitations. reports paroxysmal nocturnal dyspnea. reports orthopnea. No lightheadedness or dizziness. No syncopal episodes. Abdominal: No abdominal pain. No nausea, vomiting. No diarrhea. No constipation. No bloody or tarry stools. No loss of appetite. Genitourinary: No dysuria, increased frequency, urgency. No urinary retention. Musculoskeletal: No myalgias. No muscle weakness, no gait dysfunction, no frequent falls. No back pain. No neck pain. Integumentary: No wounds, no lesions. No rash or pruritus. No unusual bruising. No change in hair or nails. Neurologic: No aphasia. No facial droop. No change in mentation. No head injury. No headache. No paralysis. No paresthesia. Psychiatric: No depression. No anxiety. No mood swings. reports insomnia. Endocrine: No abnormal blood sugars. No weight change. No excessive sweating or thirst. No cold intolerance. SOCIAL HISTORY patient was a smoker of half pack per day for 12 years and quit in 1978. He denies any marijuana, street drug or alcohol use. He lives at home with his . FAMILY HISTORY Mother at age 94 from Alzheimer's dementia with history of coronary artery disease. Father at age 75 from renal failure. Patient has one sister with osteoarthritis. Patient has 2 brothers and one has history of prostate cancer. PHYSICAL EXAMINATION Gen: This is a 74 year old male. Patient is resting on the edge of the bed and appears to be comfortable and in no acute distress. HEENT: Head is atraumatic, normocephalic. Pupils equal, round. Sclerae is ani cteric. NECK: Supple. No JVD. No lymphadenopathy. No thyromegaly. LUNGS: Diminished bilaterally. No wheezes or rhonchi. No intercostal retractions. HEART: Irregular rate and rhythm. Systolic murmur. ABDOMEN: Soft. Bowel sounds are present. No masses. No tenderness. EXTREMITIES: mild bilaterall edema. No calf tenderness. NEUROLOGICAL: Patient is awake, alert and oriented x3. Cranial nerves 2 through 12 are grossly intact. ASSESSMENT AND PLAN 1. Acute on chronic systolic heart failure. Continue Lasix 40 mg IV twice daily, cardiology consult, daily weights, I&O. Monitor renal function and electrolytes. 2. Chronic kidney disease stage IV. Continue Lasix, nephrology consult. 3. Hypertension, hypertensive cardiovascular disease. Continue Coreg, Lasix. 4. Hyperlipidemia. Continue Lipitor 10 mg at bedtime. 5. Persistent atrial fibrillation. Continue Coreg 3.125 mg twice daily, amiodarone 200 mg daily, eliquis 2.5 mg twice daily. 6. Cardiomyopathy with AICD implantation. 7. Adrenal insufficiency. Continue Cortef 10 mg twice daily. 8. Anemia of chronic kidney disease, stable. 9. COPD, stable. Continue DuoNeb treatments 4 times daily as needed. 10. Benign prostatic hypertrophy. Continue Flomax 0.4 mg daily. 11. Hypothyroidism. Continue levothyroxine 50 g daily. Check TSH free T4. 12. Gastroesophageal reflux disease and GI prophylaxis. Continue Protonix. 13. Insomnia. Continue Ambien 7.5 mg at bedtime as needed. 14. DVT prophylaxis. Eliquis. Patient will be admitted to the hospital for a minimum of 2 night stay. Discharge plan: Most likely Home with [facility] Impression and plan of care have been directed as dictated by the signing physician. Luma Mancera nurse practitioner acting as scribe for signing physician. Past Medical History Past Medical History: Atrial Fibrillation, Heart Failure, CVA/TIA, Eye Disorder, GERD/Reflux, Hearing Disorder / Deafness, Hyperlipidemia, Hypertension, Memory Impairment, Myocardial Infarction (MT), Osteoarthritis (OA), Prostate Disorder, Renal Disease, Respiratory Disorder, Thyroid Disorder Additional Past Medical History / Comment(s): dysphagia, prev dilation, stage 4 kidney failure, stroke behind rt eye-poor vision, macular degeneration harris eyes, migraine & cluster headaches, MT's x 2 (age unknown), cardiomyopathy, hole in stomach from excedrin -it caused aspiration after which he was in an induced coma and on a ventilator for 9 days, 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 Last Myocardial Infarction Date:: unknown History of Any Multi-Drug Resistant Organisms: MRSA Date of last positivie culture/infection: 08/15/09 MDRO Source:: LUNGS Past Surgical History: AICD, Bowel Resection, Heart Catheterization With Stent, Hernia Repair, Orthopedic Surgery, Pacemaker, Prostate Surgery, Tonsillectomy Additional Past Surgical History / Comment(s): EGD with dilation, 12/28/14 Lap jose fundoplasty with mesh and lap lysis of adhesions. AICD 2008 with replacement 08/2013 (medtronic), 1995 bowel resection d/t perforation with colostomy with eventual reversal of colostomy, 2009-surgery for "hole in stomach", 2007 blephoplasty bilaterally, 2001 deviated septum, 2003 TURP, 1975 vasectomy, 02/2013 R rotator cuff, numerous lipoma removals-4 from L leg, 05/2014, 08/2013 EGD for removal of dentist spray nozzle, 1955 Head surgery at [facility], 1975 vasectomy, lithrotripsy, bilateral inquinal hernia repairs with R side done x3, Past Anesthesia/Blood Transfusion Reactions: Postoperative Nausea & Vomiting (PONV) Additional Past Anesthesia/Blood Transfusion Reaction / Comment(s): Pt has never recieved blood Date of Last Stent Placement:: 2007 Type of Cardiac Device: AICD Device Placement Date:: 08/2013 Medtronic Past Psychological History: Anxiety, Depression Additional Psychological History / Comment(s): . Smoking Status: Former smoker Past Alcohol Use History: None Reported Additional Past Alcohol Use History / Comment(s): Pt started smoking about 1951 and quit in 1981. a pack would last 1.5 days. quit drinking 1969 Past Drug Use History: None Reported - Past Family History Brother(s) Family Medical History: Cancer Additional Family Medical History / Comment(s): Patient has 2 brothers that are both alive. One has history of prostate cancer. Father Family Medical History: Renal Disease, Respiratory Disorder Additional Family Medical History / Comment(s): Father at age 75 from renal failure. Mother Family Medical History: Coronary Artery Disease (CAD), Dementia Additional Family Medical History / Comment(s): Mother at age 94 from Alzheimer dementia. Sister(s) Family Medical History: Osteoarthritis (OA) Additional Family Medical History / Comment(s): Patient has one sister with osteoarthritis. Medications and Allergies Home Medications Medication Instructions Recorded Confirmed Type Dicyclomine [Bentyl] 20 mg PO AC-TID PRN 10/27/13 01/02/20 History Lovastatin [Mevacor] 40 mg PO HS 10/27/13 01/02/20 History Hydrocortisone [Cortef] 10 mg PO BID #0 04/08/18 01/02/20 Rx Midodrine HCl [ProAmatine] 10 mg PO TID #0 05/10/18 01/02/20 Rx Amiodarone [Cordarone] 200 mg PO QAM 07/15/18 01/02/20 History Finasteride [Proscar] 5 mg PO DAILY 07/15/18 01/02/20 History Tamsulosin HCl [Flomax] 0.4 mg PO HS 07/15/18 01/02/20 History Apixaban [Eliquis] 2.5 mg PO BID #60 tab 07/19/18 01/02/20 Rx Albuterol Sulfate [Proair Hfa] 2 puff INHALATION RT-TID PRN 12/07/18 01/02/20 History Potassium Chloride ER [K-Dur ] 20 meq PO DAILY 12/07/18 01/02/20 History oxyCODONE-APAP 7.5-325MG [Percocet 0.5 - 1 tab PO Q8H PRN 12/07/18 01/02/20 History 7.5-325 mg] Furosemide [Lasix] 40 mg PO BID-W/MEALS 03/08/19 01/02/20 History Furosemide [Lasix] 80 mg PO QAM 03/08/19 01/02/20 History Levothyroxine Sodium [Synthroid] 50 mcg PO DAILY 03/08/19 01/02/20 History calcitrioL [Calcitriol] 0.25 mcg PO DAILY 03/08/19 01/02/20 History Carvedilol [Coreg] 3.125 mg PO BID 01/02/20 01/02/20 History Ergocalciferol (Vitamin D2) 50,000 unit PO Q30D 01/02/20 01/02/20 History [Drisdol] Zolpidem [Ambien] 7.5 mg PO HS PRN 01/02/20 01/02/20 History allopurinoL [Zyloprim] 100 mg PO BID 01/02/20 01/02/20 History Allergies Allergy/AdvReac Type Severity Reaction Status Date / Time Iodinated Contrast Media Allergy Rash/Hives Verified 01/02/20 21:46 [Iodinated Contrast Media - IV Dye] nitroglycerin Allergy passed out Verified 01/02/20 21:46 adhesive AdvReac SKIN TURNS Verified 01/02/20 21:46 RED piperacillin sodium AdvReac Confusion Verified 01/02/20 21:46 [From Zosyn] tazobactam sodium AdvReac Confusion Verified 01/02/20 21:46 [From Zosyn] Physical Exam Vitals: Vital Signs Temp Pulse Pulse Resp BP BP Pulse Ox 01/03/20 03:00 97.5 F L 77 18 104/72 96 01/02/20 21:09 97.9 F 61 19 123/76 97 01/02/20 20:54 72 20 111/83 96 01/02/20 20:04 70 01/02/20 19:49 72 01/02/20 19:38 28 H 01/02/20 19:15 97.9 F 85 30 H 119/81 98 Intake and Output 01/02/20 01/03/20 01/03/20 22:59 06:59 14:59 Intake Total 0 0 Output Total 1890 Balance 0 -1890 Intake: Oral 0 0 Output: Urine 1890 Other: Voiding Method Toilet Urinal # Voids 2 Weight 70.307 kg 62.5 kg Results CBC & Chem 7: 01/03/20 05:28 01/03/20 05:28 Labs: Abnormal Lab Results - Last 24 Hours (Table) 01/02/20 01/02/20 01/02/20 Range/Units 19:46 19:46 19:46 RBC 4.12 L (4.30-5.90) m/uL MCV 102.7 H (80.0-100.0) fL APTT 21.5 L (22.0-30.0) sec Potassium 5.4 H (3.5-5.1) mmol/L Carbon Dioxide (22-30) mmol/L BUN 56 H (9-20) mg/dL Creatinine 2.55 H (0.66-1.25) mg/dL Glucose 102 H (74-99) mg/dL Creatine Kinase 50 L (55-170) U/L 01/03/20 01/03/20 Range/Units 05:28 05:28 RBC 4.12 L (4.30-5.90) m/uL MCV 103.2 H (80.0-100.0) fL APTT (22.0-30.0) sec Potassium (3.5-5.1) mmol/L Carbon Dioxide 34 H (22-30) mmol/L BUN 55 H (9-20) mg/dL Creatinine 2.55 H (0.66-1.25) mg/dL Glucose 103 H (74-99) mg/dL Creatine Kinase (55-170) U/L Thrombosis Risk Factor Assmnt - Choose All That Apply Any of the Below Risk Factors Present?: No Other Risk Factors: Yes Each Risk Factor Represents 3 Points: Age 75 years or older Other congenital or acquired thrombophilia - If yes, enter type in comment: No Thrombosis Risk Factor Assessment Total Risk Factor Score: 3 Thrombosis Risk Factor Assessment Level: Moderate Risk
[2020-01-03 12:38] VITALS: BMI 18.6
[2020-01-03 13:45] LABS: T4, Free (Free Thyroxine) 1.76 ng/dL (0.78-2.19)
--- NOTE | 2020-01-03 18:04 | P.CRDCN ---
History of Present Illness Consult date: 01/03/20 Chief complaint: Shortness of breath History of present illness: This is a very pleasant 74-year-old gentleman with extensive cardiac history con sistent off severe nonischemic cardiomyopathy with an ejection fraction between 30-35%, status post AICD, long standing persistent atrial fibrillation maintaining oral anticoagulation, hypertension, dyslipidemia, and valvular heart disease presented to the hospital complaining of shortness of breath. The patient stated that for the last few days he has been experiencing increasing shortness of breath with exertion and for the last few days his shortness of breath was getting worse every time he lay flat in bed. No dizziness or lightheadedness and no syncope. No symptoms of chest pain or chest discomfort. He stated that he gained weight. The patient clearly stated that he is not very compliant with his diet and it seems also that he is not very compliant with his medications. Because her shortness of breath has gotten worse he decided to come to the hospital. The EKG showed atrial fibrillation with diffuse nonspecific ST and T wave abnormalities. The chest x-ray showed findings consistent with heart failure. The BNP came in to be elevated. The troponin came in to be within normal limits. Subsequently the patient was admitted to the hospital and he was started on Lasix IV. He underwent an echocardiogram during his hospital stay and that revealed an ejection fraction between 25-30% with global hypokinesia and evidence of moderate severe mitral regurgitation which also could be precipitating his symptoms of heart failure. Beside that the BUN was 56 and the creatinine is 2.55. Nephrology is on the case of the patient. Past Medical History Past Medical History: Atrial Fibrillation, Heart Failure, CVA/TIA, Eye Disorder, GERD/Reflux, Hearing Disorder / Deafness, Hyperlipidemia, Hypertension, Memory Impairment, Myocardial Infarction (UT), Osteoarthritis (OA), Prostate Disorder, Renal Disease, Respiratory Disorder, Thyroid Disorder Additional Past Medical History / Comment(s): dysphagia, prev dilation, stage 4 kidney failure, stroke behind rt eye-poor vision, macular degeneration harris eyes, migraine & cluster headaches, UT's x 2 (age unknown), cardiomyopathy, hole in stomach from excedrin -it caused aspiration after which he was in an induced coma and on a ventilator for 9 days, 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 Last Myocardial Infarction Date:: unknown History of Any Multi-Drug Resistant Organisms: MRSA Date of last positivie culture/infection: 08/15/09 MDRO Source:: LUNGS Past Surgical History: AICD, Bowel Resection, Heart Catheterization With Stent, Hernia Repair, Orthopedic Surgery, Pacemaker, Prostate Surgery, Tonsillectomy Additional Past Surgical History / Comment(s): EGD with dilation, 12/28/14 Lap jose fundoplasty with mesh and lap lysis of adhesions. AICD 2008 with replacement 08/2013 (medtronic), 1995 bowel resection d/t perforation with colostomy with eventual reversal of colostomy, 2009-surgery for "hole in stomach", 2007 blephoplasty bilaterally, 2001 deviated septum, 2003 TURP, 1975 vasectomy, 02/2013 R rotator cuff, numerous lipoma removals-4 from L leg, 05/2014, 08/2013 EGD for removal of dentist spray nozzle, 1955 Head surgery at [facility], 1975 vasectomy, lithrotripsy, bilateral inquinal hernia repairs with R side done x3, Past Anesthesia/Blood Transfusion Reactions: Postoperative Nausea & Vomiting (PONV) Additional Past Anesthesia/Blood Transfusion Reaction / Comment(s): Pt has never recieved blood Date of Last Stent Placement:: 2007 Type of Cardiac Device: AICD Device Placement Date:: 08/2013 Medtronic Past Psychological History: Anxiety, Depression Additional Psychological History / Comment(s): . Smoking Status: Former smoker Past Alcohol Use History: None Reported Additional Past Alcohol Use History / Comment(s): Pt started smoking about 1951 and quit in 1981. a pack would last 1.5 days. quit drinking 1969 Past Drug Use History: None Reported - Past Family History Brother(s) Family Medical History: Cancer Additional Family Medical History / Comment(s): Patient has 2 brothers that are both alive. One has history of prostate cancer. Father Family Medical History: Renal Disease, Respiratory Disorder Additional Family Medical History / Comment(s): Father at age 75 from renal failure. Mother Family Medical History: Coronary Artery Disease (CAD), Dementia Additional Family Medical History / Comment(s): Mother at age 94 from Alzheimer dementia. Sister(s) Family Medical History: Osteoarthritis (OA) Additional Family Medical History / Comment(s): Patient has one sister with osteoarthritis. Medications and Allergies Home Medications Medication Instructions Recorded Confirmed Type Dicyclomine [Bentyl] 20 mg PO AC-TID PRN 10/27/13 01/02/20 History Lovastatin [Mevacor] 40 mg PO HS 10/27/13 01/02/20 History Hydrocortisone [Cortef] 10 mg PO BID #0 04/08/18 01/02/20 Rx Midodrine HCl [ProAmatine] 10 mg PO TID #0 05/10/18 01/02/20 Rx Amiodarone [Cordarone] 200 mg PO QAM 07/15/18 01/02/20 History Finasteride [Proscar] 5 mg PO DAILY 07/15/18 01/02/20 History Tamsulosin HCl [Flomax] 0.4 mg PO HS 07/15/18 01/02/20 History Apixaban [Eliquis] 2.5 mg PO BID #60 tab 07/19/18 01/02/20 Rx Albuterol Sulfate [Proair Hfa] 2 puff INHALATION RT-TID PRN 12/07/18 01/02/20 History Potassium Chloride ER [K-Dur 20] 20 meq PO DAILY 12/07/18 01/02/20 History oxyCODONE-APAP 7.5-325MG [Percocet 0.5 - 1 tab PO Q8H PRN 12/07/18 01/02/20 History 7.5-325 mg] Furosemide [Lasix] 40 mg PO BID-W/MEALS 03/08/19 01/02/20 History Furosemide [Lasix] 80 mg PO QAM 03/08/19 01/02/20 History Levothyroxine Sodium [Synthroid] 50 mcg PO DAILY 03/08/19 01/02/20 History calcitrioL [Calcitriol] 0.25 mcg PO DAILY 03/08/19 01/02/20 History Carvedilol [Coreg] 3.125 mg PO BID 01/02/20 01/02/20 History Ergocalciferol (Vitamin D2) 50,000 unit PO Q30D 01/02/20 01/02/20 History [Drisdol] Zolpidem [Ambien] 7.5 mg PO HS PRN 01/02/20 01/02/20 History allopurinoL [Zyloprim] 100 mg PO BID 01/02/20 01/02/20 History Allergies Allergy/AdvReac Type Severity Reaction Status Date / Time Iodinated Contrast Media Allergy Rash/Hives Verified 01/02/20 21:46 [Iodinated Contrast Media - IV Dye] nitroglycerin Allergy passed out Verified 01/02/20 21:46 adhesive AdvReac SKIN TURNS Verified 01/02/20 21:46 RED piperacillin sodium AdvReac Confusion Verified 01/02/20 21:46 [From Zosyn] tazobactam sodium AdvReac Confusion Verified 01/02/20 21:46 [From Zosyn] Physical Exam Vitals: Vital Signs Temp Pulse Pulse Resp BP BP Pulse Ox 01/03/20 16:21 70 01/03/20 16:11 70 01/03/20 15:00 20 01/03/20 12:07 76 01/03/20 11:59 72 01/03/20 09:00 98.1 F 18 121/76 97 01/03/20 08:45 70 01/03/20 08:37 72 01/03/20 03:00 97.5 F L 77 18 104/72 96 01/02/20 21:09 97.9 F 61 19 123/76 97 01/02/20 20:54 72 20 111/83 96 01/02/20 20:04 70 01/02/20 19:49 72 01/02/20 19:38 28 H 01/02/20 19:15 97.9 F 85 30 H 119/81 98 Intake and Output 01/03/20 01/03/20 01/03/20 06:59 14:59 22:59 Intake Total 0 0 Output Total 1890 Balance -1890 0 Intake: Oral 0 0 Output: Urine 1890 Other: Voiding Method Toilet Toilet Toilet Urinal Urinal Urinal # Voids 2 2 Weight 62.5 kg 62.5 kg - Constitutional General appearance: no acute distress - Respiratory Respiratory: bilateral: diminished - Cardiovascular Rhythm: irregularly irregular Heart sounds: normal: S1, S2 Results 01/03/20 05:28 01/03/20 05:28 Cardiac Enzymes 01/02/20 01/02/20 01/02/20 Range/Units 19:46 19:46 19:46 AST 39 (17-59) U/L CK-MB (CK-2) 0.8 (0.0-2.4) ng/mL Troponin I 0.013 (0.000-0.034) ng/mL 01/02/20 01/03/20 01/03/20 Range/Units 22:46 01:28 05:28 AST 22 (17-59) U/L CK-MB (CK-2) (0.0-2.4) ng/mL Troponin I 0.015 <0.012 (0.000-0.034) ng/mL Coagulation 01/02/20 Range/Units 19:46 PT 10.4 (9.0-12.0) sec APTT 21.5 L (22.0-30.0) sec CBC 01/02/20 01/03/20 Range/Units 19:46 05:28 WBC 7.8 6.8 (3.8-10.6) k/uL RBC 4.12 L 4.12 L (4.30-5.90) m/uL Hgb 13.6 13.4 (13.0-17.5) gm/dL Hct 42.3 42.5 (39.0-53.0) % Plt Count 203 194 (150-450) k/uL Comprehensive Metabolic Panel 01/02/20 01/03/20 Range/Units 19:46 05:28 Sodium 137 139 (137-145) mmol/L Potassium 5.4 H 4.3 (3.5-5.1) mmol/L Chloride 100 100 (98-107) mmol/L Carbon Dioxide 30 34 H (22-30) mmol/L BUN 56 H 55 H (9-20) mg/dL Creatinine 2.55 H 2.55 H (0.66-1.25) mg/dL Glucose 102 H 103 H (74-99) mg/dL Calcium 8.7 8.9 (8.4-10.2) mg/dL AST 39 22 (17-59) U/L ALT 14 13 (4-49) U/L Alkaline Phosphatase 60 64 (38-126) U/L Total Protein 7.1 6.6 (6.3-8.2) g/dL Albumin 4.1 3.8 (3.5-5.0) g/dL Current Medications Generic Name Dose Route Start Last Admin Trade Name Freq PRN Reason Stop Dose Admin Albuterol Sulfate 2.5 mg 01/02/20 22:32 Ventolin Nebulized INHALATION RT-TID PRN Shortness Of Breath Albuterol/Ipratropium 3 ml 01/02/20 20:33 01/03/20 16:10 Duoneb 0.5 Mg-3 Mg/3 Ml Soln INHALATION 3 ml RT-QID PRN Administration Shortness Of Breath Or Wheezing Allopurinol 100 mg 01/03/20 09:00 01/03/20 10:35 Zyloprim PO 100 mg BID RADHA Administration Amiodarone HCl 200 mg 01/03/20 09:00 01/03/20 10:35 Cordarone PO 200 mg QAM RADHA Administration Apixaban 2.5 mg 01/03/20 09:00 01/03/20 10:34 Eliquis PO 2.5 mg BID RADHA Administration Atorvastatin Calcium 10 mg 01/03/20 21:00 Lipitor PO HS [facility] Calcitriol 0.25 mcg 01/03/20 09:00 01/03/20 10:34 Rocaltrol PO 0.25 mcg DAILY [facility] Administration Carvedilol 3.125 mg 01/03/20 07:30 01/03/20 10:35 Coreg PO 3.125 mg AC-BID [facility] Administration Dicyclomine HCl 20 mg 01/02/20 22:32 Bentyl PO AC-TID PRN STOMACH Ergocalciferol 50,000 unit 02/01/20 09:00 Vitamin D2 PO Q30D [facility] Finasteride 5 mg 01/03/20 09:00 01/03/20 10:34 Proscar PO Not Given DAILY [facility] Furosemide 40 mg 01/03/20 10:15 01/03/20 10:42 Lasix IV 40 mg Q12HR [facility] Administration Hydrocortisone 10 mg 01/03/20 09:00 01/03/20 10:32 Cortef PO 10 mg BID [facility] Administration Levothyroxine Sodium 50 mcg 01/03/20 06:30 01/03/20 06:00 Synthroid PO 50 mcg DAILY@0630 [facility] Administration Midodrine 10 mg 01/03/20 07:30 01/03/20 12:19 Proamatine PO Not Given AC-TID [facility] Oxycodone/Acetaminophen 0.5 each 01/02/20 22:32 01/03/20 10:36 Percocet 7.5-325 PO 0.5 each Q8H PRN Administration Pain Pantoprazole Sodium 40 mg 01/03/20 07:30 01/03/20 10:33 Protonix PO 40 mg AC-BRKFST RADHA Administration Potassium Chloride 20 meq 01/03/20 09:00 01/03/20 10:35 K-Dur 20 PO 20 meq DAILY RADHA Administration Tamsulosin HCl 0.4 mg 01/03/20 21:00 Flomax PO HS [facility]HA Zolpidem Tartrate 7.5 mg 01/02/20 22:32 Ambien PO HS PRN Insomnia Intake and Output 01/03/20 01/03/20 01/03/20 06:59 14:59 22:59 Intake Total 0 0 Output Total 1890 Balance -1890 0 Intake: Oral 0 0 Output: Urine 1890 Other: Voiding Method Toilet Toilet Toilet Urinal Urinal Urinal # Voids 2 2 Weight 62.5 kg 62.5 kg Patient Weight 01/04/20 06:59 Weight 62.5 kg 01/03/20 05:28 01/03/20 05:28 Assessment and Plan Assessment: Assessment #1 congestive heart failure exacerbation secondary to systolic dysfunction as well as mitral regurgitation #2 long-standing persistent atrial fibrillation was controlled heart rate #3 moderate to severe mitral regurgitation #4 known severe nonischemic cardiomyopathy #5 status post AICD #6 multiple comorbid conditions you Plan #1 continue the current dose of Lasix IV #2 continue monitor the kidney function and electrolytes. Nephrology service on the case #3 the echo was reviewed and revealed severe cardiomyopathy with EF between 20- 25% was evidence of moderate to severe mitral regurgitation #4 consider Entresto once the creatinine is back to baseline #5 follow-up with the patient
--- NOTE | 2020-01-03 20:35 | CONS ---
CONSULTATION REASON FOR CONSULT: Renal failure. HISTORY OF PRESENT ILLNESS: Patient is a 74-year-old male with past history of CKD, stage 4, secondary to nephrosclerosis and cardiorenal syndrome, baseline creatinine about 2.5 to 3 mg/dL. The patient was admitted to the hospital with complaints of increasing shortness of breath. He did have increased weight gain and some lower extremity edema. The patient denied any fevers or chills. No history of nausea, vomiting, abdominal pain. Serum creatinine has been about 2.5 mg/dL. Overall patient states he is feeling better. PAST MEDICAL HISTORY: His past medical history is significant for hypertension, hyperlipidemia, CHF, atrial fibrillation, cardiomyopathy, CKD, COPD, hypothyroidism, hiatal hernia, kidney stones. PAST SURGICAL HISTORY: AICD placement, bowel resection, cardiac catheterization, coronary stent placement, hernia repair, prostatic surgery, tonsillectomy, pacemaker placement, colostomy with reversal of colostomy, vasectomy, lithotripsy, removal of multiple lipomas, history of TURP procedure on the prostate. SOCIAL HISTORY: Patient is a former smoker. No history of drug abuse or alcohol abuse. MEDICATIONS: Medications prior to admission included Bentyl, Mevacor, Cortef, ProAmatine, which is midodrine, Cordarone, Proscar, Flomax, Eliquis, albuterol, potassium, Lasix, calcitriol, Coreg, vitamin D, Ambien, Zyloprim. ALLERGIES: IV CONTRAST, NITROGLYCERIN, ADHESIVE, ZOSYN. PHYSICAL EXAMINATION: Patient is comfortable, awake, not in any acute distress. Blood pressure was 121/76, heart rate 72 per minute. He is afebrile. EXAMINATION OF THE HEART: S1 and S2. EXAMINATION OF LUNGS: Bilateral breath sounds are heard. ABDOMEN: Soft, non-tender. Examination of lower extremities shows edema 1+ bilaterally. [employer] exam is grossly intact. LABS: Labs show sodium of 139, potassium 4.3, chloride 100. CO2 is 34, BUN 55, creatinine 2.5, hemoglobin 13.4 g/dL. ASSESSMENT: 1. Chronic kidney disease, NKF stage 4, secondary to nephrosclerosis and cardiorenal syndrome. Renal function close to baseline. 2. Congestive heart failure, acute on top of chronic, mainly systolic, currently being diuresed. 3. Cardiomyopathy, ejection fraction 25% to 30%, with severely dilated left atrium. 4. Coronary artery disease with history of coronary artery stenting. 5. Hiatal hernia, status post Swapnil fundoplication. 6. History of benign prostatic hypertrophy, status post transurethral resection of prostate procedure. 7. History of atrial fibrillation. 8. History of chronic obstructive pulmonary disease, currently stable, maintained on updraft treatments. 9. History of adrenal insufficiency, maintained on Solu-Cortef. PLAN: Continue to diurese patient. Volume status has improved, according to patient and his . Monitor electrolytes. Check daily weights. Repeat labs in a.m. Patient is instructed regarding avoiding [id number] foods. Thank you for this consultation. Will continue to follow the patient with you during his hospitalization. MMODL / IJN: [id number] /
[2020-01-03] MEDS ORDERED: TAMSULOSIN 0.4 MG CAP.ER.24H PO SCH (21:00)
[2020-01-03] MEDS ORDERED: ATORVASTATIN 10 MG TAB PO SCH (21:00)
[2020-01-04 06:01] LABS: Calcium 8.7 mg/dL (8.4-10.2)
[2020-01-04] MEDS: LEVOTHYROXINE 50 MCG TAB PO SCH (06:43)
[2020-01-04] MEDS: HYDROCORTISONE 10 MG TAB PO SCH (07:48)
[2020-01-04] MEDS: allopurinoL 100 MG TAB PO SCH (07:49)
[2020-01-04] MEDS: FUROSEMIDE 10 MG/ML 4 ML VIAL IV SCH (07:49)
[2020-01-04] MEDS: FINASTERIDE 5 MG TAB PO SCH (07:49)
[2020-01-04] MEDS: POTASSIUM CHLORIDE ER 20 MEQ TAB.ER PO SCH (07:49)
[2020-01-04] MEDS: AMIODARONE 200 MG TAB PO SCH (07:49)
[2020-01-04] MEDS: APIXABAN 2.5 MG TABLET PO SCH (07:49)
[2020-01-04] MEDS: MIDODRINE 5 MG TAB PO SCH ×2 (07:49→11:44)
[2020-01-04] MEDS: carvediloL 3.125 MG TAB PO SCH (07:49)
[2020-01-04] MEDS: PANTOPRAZOLE 40 MG TABLET PO SCH (07:49)
[2020-01-04] MEDS: oxyCODONE-APAP 7.5-325MG 1 EACH TAB PO PRN (07:53)
[2020-01-04 07:59] VITALS: BP 101/55; PULSE 75; RESP 12; TEMP 97.5
--- NOTE | 2020-01-04 08:58 | XR ---
EXAMINATION TYPE: XR chest 2V DATE OF EXAM: 01/04/2020 COMPARISON: Chest x-ray 2 days ago and older studies. CT chest September 01, 2015. HISTORY: CHF progress study. TECHNIQUE: Frontal and lateral views of the chest are obtained. FINDINGS: There is persistent cardiomegaly with single lead pacemaker/AICD and atherosclerotic maldonado e in the thoracic aorta. There is background chronic parenchymal fibrotic change bilaterally along wi th lateral right apical calcified pleural plaque redemonstrated. Improved inspiration on current stud y.. The osseous structures are intact. IMPRESSION: Chronic changes and cardiomegaly with improved interstitial edema. No new focal infiltra te.
[2020-01-04] MEDS ORDERED: SACUBITRIL/VALSARTAN 24 MG-26 MG TABLET PO SCH (09:00)
--- NOTE | 2020-01-04 09:35 | P.DS ---
Providers Date of admission: 01/03/20 08:25 Expected date of discharge: 01/04/20 Attending physician: Merritt Patel Consults: 01/02/20 20:33 Consult Physician Routine Consulting Provider: Mary Logan Consult Reason/Comments: arf Do you want consulting provider notified?: Yes 01/03/20 00:38 Consult Physician Routine Consulting Provider: Tunde Urbina Consult Reason/Comments: CHF Do you want consulting provider notified?: Yes, Notify in am Primary care physician: Merritt Jorge [place] [facility] Course: HISTORY OF PRESENT ILLNESS This is a 74-year-old male one of Dr. Patel with a previous medical history significant for hypertension and hypertensive cardiovascular disease, hyperlipidemia, memory impairment, osteoarthritis, history of chronic systolic heart failure, persistent atrial fibrillation, cardiomyopathy with prior AICD implantation, history of hiatal hernia status post Swapnil fundoplication, benign prostatic hypertrophy, adrenal insufficiency, chronic kidney disease stage 4, anemia of chronic kidney disease, hypothyroidism, COPD, recurrent depression. His last hospitalization was in August 2018 at which time he was treated for acute on chronic systolic heart failure and COPD, acute kidney injury. Patient states that for the past 2-3 days in a row he feels like he is filling up with fluid. He has increasing shortness of breath with PND and orthopnea. He denies having any chest pain. He states he is only able to sleep about 10 minutes at a time. Patient came into [facility] emergency center for evaluation. He was found to be afebrile, heart rate 85, respiratory rate 30, blood pressure 119/81, pulse ox 98% on room air. CBC was unremarkable. Sodium 137, potassium 5.4, chloride 100, CO2 30, BUN 56 and creatinine 2.55. Blood sugar 102. Lactic acid 1.6. Magnesium 2.3. Liver function tests normal. EKG is atrial flutter. Chest x-ray reveals cardiomegaly and probable mild heart failure. Significant clearing of the lower lobe pulmonary infiltrates compared to old exam. Patient to be admitted to the MedSurg floor for heart failure, continue IV Lasix, consult cardiology and nephrology. 01/03: Patient has been seen by both Dr. Urbina and Dr. Logan. Dr. Urbina is recommended Entresto. Patient has been on Entresto in the past and last obtained a prescription and March 2018 at his pharmacy. Patient and his are unable to recall why this would've been discontinued. Patient will be started on low dose which was when he was on in the past. Echocardiogram reveals EF 25-30% with moderate concentric left hypertrophy, moderate to severe mitral regurgitation. Chest x-ray this morning reveals chronic changes and cardiomegaly with improved interstitial edema. No new focal infiltrate. Patient has been afebrile, heart rate 75, blood pressure 101/55, pulse ox 97% on room air. Patient does have midodrine for hypotension to be used as needed. Repeat blood work reveals CO2 31, potassium 5.0, BUN 15 creatinine 2.50, blood sugar 111. Patient will be discharged home today in stable condition. ASSESSMENT AND PLAN 1. Acute on chronic systolic heart failure. 2. Chronic kidney disease stage IV. 3. Hypertension, hypertensive cardiovascular disease. 4. Hyperlipidemia. 5. Persistent atrial fibrillation. 6. Cardiomyopathy with AICD implantation. 7. Adrenal insufficiency. 8. Anemia of chronic kidney disease, stable. 9. COPD, stable. 10. Benign prostatic hypertrophy. 11. Hypothyroidism. 12. Gastroesophageal reflux disease. 13. Insomnia. Discharge plan: Home with [facility] Impression and plan of care have been directed as dictated by the signing physician. Luma Mancera nurse practitioner acting as scribe for signing physician. Patient Condition at Discharge: Good Plan - Discharge Summary Discharge Rx Participant: No New Discharge Prescriptions: New Sacubitril/Valsartan [Entresto 24 mg-26 mg Tablet] 0.5 each PO BID #60 tablet Continue Lovastatin [Mevacor] 40 mg PO HS Dicyclomine [Bentyl] 20 mg PO AC-TID PRN PRN Reason: STOMACH Hydrocortisone [Cortef] 10 mg PO BID #0 Midodrine HCl [ProAmatine] 10 mg PO TID #0 Finasteride [Proscar] 5 mg PO DAILY Tamsulosin HCl [Flomax] 0.4 mg PO HS Amiodarone [Cordarone] 200 mg PO QAM Apixaban [Eliquis] 2.5 mg PO BID #60 tab Potassium Chloride ER [K-Dur 20] 20 meq PO DAILY Albuterol Sulfate [Proair Hfa] 2 puff INHALATION RT-TID PRN PRN Reason: Shortness Of Breath oxyCODONE-APAP 7.5-325MG [Percocet 7.5-325 mg] 0.5 - 1 tab PO Q8H PRN PRN Reason: Pain Furosemide [Lasix] 80 mg PO QAM Furosemide [Lasix] 40 mg PO BID-W/MEALS Levothyroxine Sodium [Synthroid] 50 mcg PO DAILY calcitrioL [Calcitriol] 0.25 mcg PO DAILY Zolpidem [Ambien] 7.5 mg PO HS PRN PRN Reason: Insomnia Ergocalciferol (Vitamin D2) [Drisdol] 50,000 unit PO Q30D allopurinoL [Zyloprim] 100 mg PO BID Carvedilol [Coreg] 3.125 mg PO BID Discharge Medication List Dicyclomine [Bentyl] 20 mg PO AC-TID PRN 10/27/13 [History] Lovastatin [Mevacor] 40 mg PO HS 10/27/13 [History] Hydrocortisone [Cortef] 10 mg PO BID #0 04/08/18 [Rx] Midodrine HCl [ProAmatine] 10 mg PO TID #0 05/10/18 [Rx] Amiodarone [Cordarone] 200 mg PO QAM 07/15/18 [History] Finasteride [Proscar] 5 mg PO DAILY 07/15/18 [History] Tamsulosin HCl [Flomax] 0.4 mg PO HS 07/15/18 [History] Apixaban [Eliquis] 2.5 mg PO BID #60 tab 07/19/18 [Rx] Albuterol Sulfate [Proair Hfa] 2 puff INHALATION RT-TID PRN 12/07/18 [History] Potassium Chloride ER [K-Dur 20] 20 meq PO DAILY 12/07/18 [History] oxyCODONE-APAP 7.5-325MG [Percocet 7.5-325 mg] 0.5 - 1 tab PO Q8H PRN 12/07/18 [History] Furosemide [Lasix] 40 mg PO BID-W/MEALS 03/08/19 [History] Furosemide [Lasix] 80 mg PO QAM 03/08/19 [History] Levothyroxine Sodium [Synthroid] 50 mcg PO DAILY 03/08/19 [History] calcitrioL [Calcitriol] 0.25 mcg PO DAILY 03/08/19 [History] Carvedilol [Coreg] 3.125 mg PO BID 01/02/20 [History] Ergocalciferol (Vitamin D2) [Drisdol] 50,000 unit PO Q30D 01/02/20 [History] Zolpidem [Ambien] 7.5 mg PO HS PRN 01/02/20 [History] allopurinoL [Zyloprim] 100 mg PO BID 01/02/20 [History] Sacubitril/Valsartan [Entresto 24 mg-26 mg Tablet] 0.5 each PO BID #60 tablet 01/04/20 [Rx] Follow up Appointment(s)/Referral(s): [facility] [Provider Group] - 1 Week Merritt Patel MD [Primary Care Provider] - 1 Week Patient Instructions/Handouts: Heart Failure (DC) Discharge Disposition: HOME WITH HOME HEALTH SERVICES
--- NOTE | 2020-01-04 11:48 | P.PN ---
Subjective Progress Note Date: 01/04/20 Principal diagnosis: Shortness of breath This is a very pleasant 74-year-old gentleman with extensive cardiac history consistent off severe nonischemic cardiomyopathy with an ejection fraction between 30-35%, status post AICD, long standing persistent atrial fibrillation maintaining oral anticoagulation, hypertension, dyslipidemia, and valvular heart disease presented to the hospital complaining of shortness of breath. The patient stated that for the last few days he has been experiencing increasing shortness of breath with exertion and for the last few days his shortness of breath was getting worse every time he lay flat in bed. No dizziness or lightheadedness and no syncope. No symptoms of chest pain or chest discomfort. He stated that he gained weight. The patient clearly stated that he is not very compliant with his diet and it seems also that he is not very compliant with his medications. Because her shortness of breath has gotten worse he decided to com e to the hospital. The EKG showed atrial fibrillation with diffuse nonspecific ST and T wave abnormalities. The chest x-ray showed findings consistent with heart failure. The BNP came in to be elevated. The troponin came in to be within normal limits. Subsequently the patient was admitted to the hospital and he was started on Lasix IV. He underwent an echocardiogram during his hospital stay and that revealed an ejection fraction between 25-30% with global hypokinesia and evidence of moderate severe mitral regurgitation which also could be precipitating his symptoms of heart failure. Beside that the BUN was 56 and the creatinine is 2.55. Nephrology is on the case of the patient. The patient was seen today January [id number]. He states that the shortness of breath has improved significantly. No symptoms of chest pain or chest discomfort. From the cardiovascular standpoint of view, the patient can be discharged home. I am going to DC the Lasix IV and start the patient on Lasix by mouth 40 mg twice a day. He was started already on Entresto. Objective - Vital Signs Vital signs: Vital Signs Temp 97.5 F L 01/04/20 07:58 Pulse 75 01/04/20 07:58 Resp 12 01/04/20 07:58 BP 101/55 01/04/20 07:58 Pulse Ox 97 01/04/20 07:58 Intake & Output 01/03/20 01/04/20 01/04/20 18:59 06:59 18:59 Intake Total 0 Output Total 1200 Balance 0 -1200 Weight 62.5 kg 62.6 kg Intake: Oral 0 Output: Urine 1200 Other: Voiding Method Toilet Toilet Urinal Urinal # Voids 2 - Constitutional General appearance: Present: no acute distress - Respiratory Respiratory: bilateral: CTA - Cardiovascular Rhythm: regular - Labs CBC & Chem 7: 01/03/20 05:28 01/04/20 05:35 Labs: Abnormal Lab Results - Last 24 Hours (Table) 01/03/20 01/04/20 Range/Units 05:28 05:35 Carbon Dioxide 31 H (22-30) mmol/L BUN 58 H (9-20) mg/dL Creatinine 2.50 H (0.66-1.25) mg/dL Glucose 111 H (74-99) mg/dL TSH 10.900 H (0.465-4.680) mIU/L Assessment and Plan Assessment: Assessment #1 congestive heart failure exacerbation secondary to systolic dysfunction as well as mitral regurgitation #2 long-standing persistent atrial fibrillation was controlled heart rate #3 moderate to severe mitral regurgitation #4 known severe nonischemic cardiomyopathy #5 status post AICD #6 multiple comorbid conditions you Plan #1 DC Lasix IV and start the patient on Lasix by mouth #2 the patient can be discharged home
[2020-01-04] MEDS ORDERED: FUROSEMIDE 40 MG TAB PO SCH (16:00)
[2020-02-01] MEDS ORDERED: ERGOCALCIFEROL 50,000 UNIT CAP PO SCH (09:00)
== END 2020-01-04 12:25 | disposition home or self-care (01) | DRG 291 ==
LOC: EC 19:14 → 1SOBS 20:34 → OBSVTOIN 01-03 08:25
PROVIDERS: ADMIT Internal Medicine Geriatric Medicine; ATTEND Internal Medicine Geriatric Medicine
DX: I13.0 Hypertensive heart and chronic kidney disease with heart failure and stage 1 through stage 4 chronic kidney disease, or unspecified chronic kidney disease (principal); I50.23 Acute on chronic systolic (congestive) heart failure; E27.40 Unspecified adrenocortical insufficiency; F33.9 Major depressive disorder, recurrent, unspecified; I48.11 Longstanding persistent atrial fibrillation; I48.92 Unspecified atrial flutter; N18.4 Chronic kidney disease, stage 4 (severe); D63.1 Anemia in chronic kidney disease; H35.30 Unspecified macular degeneration; D86.0 Sarcoidosis of lung; E03.9 Hypothyroidism, unspecified; E78.5 Hyperlipidemia, unspecified; F41.9 Anxiety disorder, unspecified; G47.00 Insomnia, unspecified; H91.90 Unspecified hearing loss, unspecified ear; I25.10 Atherosclerotic heart disease of native coronary artery without angina pectoris; I25.2 Old myocardial infarction; I34.0 Nonrheumatic mitral (valve) insufficiency; I42.8 Other cardiomyopathies; J44.9 Chronic obstructive pulmonary disease, unspecified; K21.9 Gastro-esophageal reflux disease without esophagitis; N40.0 Benign prostatic hyperplasia without lower urinary tract symptoms; Z79.01 Long term (current) use of anticoagulants; Z79.890 Hormone replacement therapy; Z79.899 Other long term (current) drug therapy; Z82.0 Family history of epilepsy and other diseases of the nervous system; Z82.49 Family history of ischemic heart disease and other diseases of the circulatory system; Z80.42 Family history of malignant neoplasm of prostate; Z82.61 Family history of arthritis; Z86.73 Personal history of transient ischemic attack (TIA), and cerebral infarction without residual deficits; Z87.442 Personal history of urinary calculi; Z87.891 Personal history of nicotine dependence; Z95.5 Presence of coronary angioplasty implant and graft; Z95.810 Presence of automatic (implantable) cardiac defibrillator; M19.90 Unspecified osteoarthritis, unspecified site; Z90.49 Acquired absence of other specified parts of digestive tract; Z90.89 Acquired absence of other organs; R41.3 Other amnesia; Z90.79 Acquired absence of other genital organ(s); Z88.0 Allergy status to penicillin; Z88.8 Allergy status to other drugs, medicaments and biological substances; Z91.041 Radiographic dye allergy status; Z86.14 Personal history of Methicillin resistant Staphylococcus aureus infection
CPT/HCPCS: 36415; 71045; 71046; 80048; 80053; 82550; 82553; 83605; 83735; 83880; 84439; 84443; 84484; 85025; 85610; 85730; 93005; 93306; 94640; 96374; 99285

== ENCOUNTER 2020-01-09 16:46 | Emergency (ER) | payer MEDICARE ==
[2020-01-09] MEDS ORDERED: LORazepam 1 MG TAB PO STA ×2 (17:03→19:10)
[2020-01-09 17:31] LABS: Basophils # (A) 0.1 k/uL (0-0.2); Basophils % (A) 1 %; Eosinophils # (A) 0.2 k/uL (0-0.7); Eosinophils % (A) 3 %; HCT 42.2 % (39.0-53.0); HGB 13.7 gm/dL (13.0-17.5); Lymphocytes # (A) 1.1 k/uL (1.0-4.8); Lymphocytes % (A) 13 %; MCH 32.4 pg (25.0-35.0); MCHC 32.4 g/dL (31.0-37.0); Macrocytosis Slight; Mean Platelet Volume 9.3; Monocytes # (A) 0.8 k/uL (0-1.0); Monocytes % (A) 9 %; Neutrophils % (A) 71 %; Platelet Count 216 k/uL (150-450); RBC 4.23 m/uL (4.30-5.90); RDW 14.6 % (11.5-15.5); WBC 8.4 k/uL (3.8-10.6)
[2020-01-09 17:41] LABS: Albumin 4.1 g/dL (3.5-5.0); Calcium 9.3 mg/dL (8.4-10.2); Potassium 4.6 mmol/L (3.5-5.1); Total Bilirubin 0.7 mg/dL (0.2-1.3); Total Protein 7.2 g/dL (6.3-8.2)
[2020-01-09 17:44] LABS: Partial Thromboplastin Time 23.9 sec (22.0-30.0); Prothrombin Time 10.5 sec (9.0-12.0)
--- NOTE | 2020-01-09 17:51 | ED ---
General Adult HPI - General Chief complaint: Shortness of Breath Stated complaint: revisit - SOB Time Seen by Provider: 01/09/20 16:51 Source: patient, RN notes reviewed, old records reviewed Mode of arrival: wheelchair Limitations: no limitations - History of Present Illness Initial comments: 74-year-old male patient past history of congestive heart failure presents ED for evaluation of shortness of breath. Patient reports that last night and this morning he has been having social history of breath as well. he also reports that he is feeling anxious.. Denies any chest pain. Denies any pain any other regions. Systemic: Pt denies fatigue, fever/chills, rash. Pt denies weakness, night sweats, weight loss. Neuro: Pt denies headache, visual disturbances, syncope or pre-syncope. HEENT: Pt denies ocular discharge or irritation, otalgia, rhinorrhea, pharyngitis or notable lymphadenopathy. Cardiopulmonary: Pt denies chest pain, SOB, heart palpitations, dyspnea on exertion. Abdominal/GI: Pt denies abdominal pain, n/v/d. : Pt denies dysuria, burning w/ urination, frequency/urgency. Denies new onset urinary or bowel incontinence. MSK: Pt denies myalgia, loss of strength or function in extremities. Neuro: Pt denies new onset weakness, paresthesias. - Related Data Home Medications Medication Instructions Recorded Confirmed Dicyclomine [Bentyl] 20 mg PO AC-TID PRN 10/27/13 01/02/20 Lovastatin [Mevacor] 40 mg PO 10/27/13 01/02/20 Amiodarone [Cordarone] 200 mg PO QA 07/15/18 01/02/20 Finasteride [Proscar] 5 mg PO DAILY 07/15/18 01/02/20 Tamsulosin HCl [Flomax] 0.4 mg PO 07/15/18 01/02/20 Albuterol Sulfate [Proair Hfa] 2 puff INHALATION RT-TID PRN 12/07/18 01/02/20 Potassium Chloride ER [K-Dur 20] 20 meq PO DAILY 12/07/18 01/02/20 oxyCODONE-APAP 7.5-325MG [Percocet 0.5 - 1 tab PO Q8H PRN 12/07/18 01/02/20 7.5-325 mg] Furosemide [Lasix] 40 mg PO BID-W/MEALS 03/08/19 01/02/20 Furosemide [Lasix] 80 mg PO QAM 03/08/19 01/02/20 Levothyroxine Sodium [Synthroid] 50 mcg PO DAILY 03/08/19 01/02/20 calcitrioL [Calcitriol] 0.25 mcg PO DAILY 03/08/19 01/02/20 Carvedilol [Coreg] 3.125 mg PO BID 01/02/20 01/02/20 Ergocalciferol (Vitamin D2) 50,000 unit PO Q30D 01/02/20 01/02/20 [Drisdol] Zolpidem [Ambien] 7.5 mg PO HS PRN 01/02/20 01/02/20 allopurinoL [Zyloprim] 100 mg PO BID 01/02/20 01/02/20 Previous Rx's Medication Instructions Recorded Hydrocortisone [Cortef] 10 mg PO BID #0 04/08/18 Midodrine HCl [ProAmatine] 10 mg PO TID #0 05/10/18 Apixaban [Eliquis] 2.5 mg PO BID #60 tab 07/19/18 Allergies Allergy/AdvReac Type Severity Reaction Status Date / Time Iodinated Contrast Media Allergy Rash/Hives Verified 01/09/20 16:50 [Iodinated Contrast Media - IV Dye] nitroglycerin Allergy passed out Verified 01/09/20 16:50 adhesive AdvReac SKIN TURNS Verified 01/09/20 16:50 RED piperacillin sodium AdvReac Confusion Verified 01/09/20 16:50 [From Zosyn] tazobactam sodium AdvReac Confusion Verified 01/09/20 16:50 [From Zosyn] Review of Systems ROS Statement: Those systems with pertinent positive or pertinent negative responses have been documented in the HPI. ROS Other: All systems not noted in ROS Statement are negative. Past Medical History Past Medical History: Atrial Fibrillation, Heart Failure, CVA/TIA, Eye Disorder, GERD/Reflux, Hearing Disorder / Deafness, Hyperlipidemia, Hypertension, Memory Impairment, Myocardial Infarction ([place]), Osteoarthritis (OA), Prostate Disorder, Renal Disease, Respiratory Disorder, Thyroid Disorder Additional Past Medical History / Comment(s): dysphagia, prev dilation, stage 4 kidney failure, stroke behind rt eye-poor vision, macular degeneration harris eyes, migraine & cluster headaches, IN's x 2 (age unknown), cardiomyopathy, hole in stomach from excedrin -it caused aspiration after which he was in an induced coma and on a ventilator for 9 days, 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 Last Myocardial Infarction Date:: unknown History of Any Multi-Drug Resistant Organisms: MRSA Date of last positivie culture/infection: 08/15/09 MDRO Source:: LUNGS Past Surgical History: AICD, Bowel Resection, Heart Catheterization With Stent, Hernia Repair, Orthopedic Surgery, Pacemaker, Prostate Surgery, Tonsillectomy Additional Past Surgical History / Comment(s): EGD with dilation, 12/28/14 Lap jose fundoplasty with mesh and lap lysis of adhesions. AICD 2008 with replacement 08/2013 (medtronic), 1995 bowel resection d/t perforation with colostomy with eventual reversal of colostomy, 2009-surgery for "hole in stomach", 2007 blephoplasty bilaterally, 2001 deviated septum, 2003 TURP, 1975 vasectomy, 02/2013 R rotator cuff, numerous lipoma removals-4 from L leg, 05/2014, 08/2013 EGD for removal of dentist spray nozzle, 1955 Head surgery at [facility], 1975 vasectomy, lithrotripsy, bilateral inquinal hernia repairs with R side done x3, Past Anesthesia/Blood Transfusion Reactions: Postoperative Nausea & Vomiting (PONV) Additional Past Anesthesia/Blood Transfusion Reaction / Comment(s): Pt has never recieved blood Date of Last Stent Placement:: 2007 Type of Cardiac Device: AICD Device Placement Date:: 08/2013 Medtronic Past Psychological History: Anxiety, Depression Smoking Status: Never smoker Past Alcohol Use History: None Reported Past Drug Use History: None Reported - Past Family History Brother(s) Family Medical History: Cancer Additional Family Medical History / Comment(s): Patient has 2 brothers that are both alive. One has history of prostate cancer. Father Family Medical History: Renal Disease, Respiratory Disorder Additional Family Medical History / Comment(s): Father at age 75 from renal failure. Mother Family Medical History: Coronary Artery Disease (CAD), Dementia Additional Family Medical History / Comment(s): Mother at age 94 from Alzheimer dementia. Sister(s) Family Medical History: Osteoarthritis (OA) Additional Family Medical History / Comment(s): Patient has one sister with osteoarthritis. General Exam - General Exam Comments Initial Comments: Constitutional: NAD, AOX3, Pt has pleasant affect. HEENT: NC/AT, trachea midline, neck supple, no lymphadenopathy. Posterior pharynx non erythematous, without exudates. External ears appear normal, without discharge. Mucous membranes moist. Eyes PERRLA, EOM intact. There is no scleral icterus. No pallor noted. Cardiopulmonary: RRR, no murmurs, rubs or gallops, no JVD noted. Lungs CTAB in anterior and posterior peters. No peripheral edema. Abdominal exam: Abdomen soft and non-distended. Abdomen non-tender to palpation in all 4 quadrants. Bowel sounds active in LLQ. No hepatosplenomegaly. No ecchymosis Neuro: CN II-XII grossly intact. No nuchal rigidity. MSK: No posterior calf tenderness bilaterally, homans sign negative bilaterally. Posterior tibialis and radial pulse +2 bilaterally. Sensation intact in upper and lower extremities. Full active ROM in upper and lower extremities, 5/5 stregnth. Limitations: no limitations Course Vital Signs 01/09/20 01/09/20 01/09/20 16:48 17:27 18:38 Temperature 97.5 F L 98.5 F Pulse Rate 78 77 79 Respiratory 22 20 18 Rate Blood Pressure 103/64 122/80 104/71 O2 Sat by Pulse 100 99 99 Oximetry Medical Decision Making - Medical Decision Making 74-year-old male patient presents to ED for evaluation of shortness of breath. Denies any chest pain. Patient has an extensive past cardiac history including congestive heart failure with an exacerbation about one week ago. Patient will tender stable, afebrile. Physical exam that is acute pathology. Laboratory investigations are overall unimpressive. BNP decreased from prior. EKG slated in atrial fibrillation which patient's history withunchanged from prior. Chest x-ray reveals no pneumonia or CHF. Patient's symptoms resolved entirely with Ativan. Patient reports that due to his congestive heart failure he has some chronic shortness of breath with walking. He reports that this makes him very anxious and believes is shortness of breath is anxiety related. Patient is denying any symptoms at this time. I did offer patient an observation patient like to decline. Patient was discharged to follow up with primary care provider tomorrow return to ER if condition worsens. Case discussed with Dr. Williamson. - Lab Data Result diagrams: 01/09/20 17:09 01/09/20 17:09 Lab Results 01/09/20 01/09/20 01/09/20 Range/Units 17:09 17:09 17:09 WBC 8.4 (3.8-10.6) k/uL RBC 4.23 L (4.30-5.90) m/uL Hgb 13.7 (13.0-17.5) gm/dL Hct 42.2 (39.0-53.0) % MCV 100.0 (80.0-100.0) fL MCH 32.4 (25.0-35.0) pg MCHC 32.4 (31.0-37.0) g/dL RDW 14.6 (11.5-15.5) % Plt Count 216 (150-450) k/uL Neutrophils % 71 % Lymphocytes % 13 % Monocytes % 9 % Eosinophils % 3 % Basophils % 1 % Neutrophils # 6.0 (1.3-7.7) k/uL Lymphocytes # 1.1 (1.0-4.8) k/uL Monocytes # 0.8 (0-1.0) k/uL Eosinophils # 0.2 (0-0.7) k/uL Basophils # 0.1 (0-0.2) k/uL Macrocytosis Slight PT 10.5 (9.0-12.0) sec INR 1.0 (<1.2) APTT 23.9 (22.0-30.0) sec Sodium 137 (137-145) mmol/L Potassium 4.6 (3.5-5.1) mmol/L Chloride 102 (98-107) mmol/L Carbon Dioxide 27 (22-30) mmol/L Anion Gap 8 mmol/L BUN 49 H (9-20) mg/dL Creatinine 2.37 H (0.66-1.25) mg/dL Est GFR (CKD-EPI)AfAm 30 (>60 ml/min/1.73 sqM) Est GFR (CKD-EPI)NonAf 26 (>60 ml/min/1.73 sqM) Glucose 90 (74-99) mg/dL Plasma Lactic Acid Jun (0.7-2.0) mmol/L Calcium 9.3 (8.4-10.2) mg/dL Total Bilirubin 0.7 (0.2-1.3) mg/dL AST 26 (17-59) U/L ALT 14 (4-49) U/L Alkaline Phosphatase 70 (38-126) U/L Troponin I (0.000-0.034) ng/mL NT-Pro-B Natriuret Pep pg/mL Total Protein 7.2 (6.3-8.2) g/dL Albumin 4.1 (3.5-5.0) g/dL 01/09/20 01/09/20 01/09/20 Range/Units 17:09 17:09 17:09 WBC (3.8-10.6) k/uL RBC (4.30-5.90) m/uL Hgb (13.0-17.5) gm/dL Hct (39.0-53.0) % MCV (80.0-100.0) fL MCH (25.0-35.0) pg MCHC (31.0-37.0) g/dL RDW (11.5-15.5) % Plt Count (150-450) k/uL Neutrophils % % Lymphocytes % % Monocytes % % Eosinophils % % Basophils % % Neutrophils # (1.3-7.7) k/uL Lymphocytes # (1.0-4.8) k/uL Monocytes # (0-1.0) k/uL Eosinophils # (0-0.7) k/uL Basophils # (0-0.2) k/uL Macrocytosis PT (9.0-12.0) sec INR (<1.2) APTT (22.0-30.0) sec Sodium (137-145) mmol/L Potassium (3.5-5.1) mmol/L Chloride (98-107) mmol/L Carbon Dioxide (22-30) mmol/L Anion Gap mmol/L BUN (9-20) mg/dL Creatinine (0.66-1.25) mg/dL Est GFR (CKD-EPI)AfAm (>60 ml/min/1.73 sqM) Est GFR (CKD-EPI)NonAf (>60 ml/min/1.73 sqM) Glucose (74-99) mg/dL Plasma Lactic Acid Jun 1.6 (0.7-2.0) mmol/L Calcium (8.4-10.2) mg/dL Total Bilirubin (0.2-1.3) mg/dL AST (17-59) U/L ALT (4-49) U/L Alkaline Phosphatase (38-126) U/L Troponin I <0.012 (0.000-0.034) ng/mL NT-Pro-B Natriuret Pep 2360 pg/mL Total Protein (6.3-8.2) g/dL Albumin (3.5-5.0) g/dL - EKG Data -: EKG Interpreted by Me (and Dr. Williamson ) EKG Comments: Ventricular rate 82, QRS 104, QT/QTc 09/09 was 495. Atrial fibrillation, low blood QRS, nonspecific ST-T wave abnormality. No significant change from prior. No concern for acute ischemia at this time. Disposition Clinical Impression: Shortness of breath, Anxiety Disposition: HOME SELF-CARE Condition: Stable Instructions (If sedation given, give patient instructions): Anxiety (ED), Nicole rtness of Breath (ED) Additional Instructions: Follow up with primary care provider tomorrow. Return to ER if condition worsens. If you do again become anxious break the Ativan tablet I provided you in half and take one half of it. Is patient prescribed a controlled substance at d/c from ED?: No Referrals: Merritt Patel MD [Primary Care Provider] - 1-2 days
--- NOTE | 2020-01-09 17:59 | XR ---
EXAMINATION TYPE: XR chest 2V DATE OF EXAM: 01/09/2020 COMPARISON: 01/04/2020 HISTORY: Short of breath TECHNIQUE: 2 views FINDINGS: Heart is enlarged. There is no gross heart failure. There is very minimal blunting of the c ostophrenic angles. There is left axillary pacemaker. There are chest leads. The bony thorax appears intact. IMPRESSION: Moderate cardiomegaly. Very small pleural effusions unchanged. No obvious heart failure.
[2020-01-09 18:39] VITALS: PULSE 79; TEMP 98.5
[2020-01-09] MEDS ORDERED: VANCOMYCIN IV PER PHARMACY 1 EACH MISC MISCELLANE PRN (18:47)
[2020-01-09] MEDS ORDERED: VANCOMYCIN 1,250 MG in SODIUM CHLORIDE 0.9% 250 ML IVPB ONE (19:15)
[2020-01-09 19:40] VITALS: BP 111/72; RESP 16
[2020-01-10] MEDS ORDERED: VANCOMYCIN 1,250 MG in SODIUM CHLORIDE 0.9% 250 ML IVPB SCH ×4 (12:00)
== END 2020-01-09 19:37 | disposition home or self-care (01) ==
LOC: EC 16:46
DX: R06.02 Shortness of breath (principal); F41.9 Anxiety disorder, unspecified; E78.5 Hyperlipidemia, unspecified; I50.9 Heart failure, unspecified; N18.4 Chronic kidney disease, stage 4 (severe); I13.0 Hypertensive heart and chronic kidney disease with heart failure and stage 1 through stage 4 chronic kidney disease, or unspecified chronic kidney disease; I25.2 Old myocardial infarction; M19.90 Unspecified osteoarthritis, unspecified site; E07.9 Disorder of thyroid, unspecified; J98.9 Respiratory disorder, unspecified; N40.0 Benign prostatic hyperplasia without lower urinary tract symptoms; Z79.890 Hormone replacement therapy; Z79.899 Other long term (current) drug therapy; Z88.8 Allergy status to other drugs, medicaments and biological substances; Z91.041 Radiographic dye allergy status; Z91.048 Other nonmedicinal substance allergy status; Z86.14 Personal history of Methicillin resistant Staphylococcus aureus infection; Z95.5 Presence of coronary angioplasty implant and graft; Z95.810 Presence of automatic (implantable) cardiac defibrillator; Z82.49 Family history of ischemic heart disease and other diseases of the circulatory system
CPT/HCPCS: 36415; 71046; 80053; 83605; 83880; 84484; 85025; 85610; 85730; 93005; 99285

== ENCOUNTER → 2020-02-11 | Outpatient (CLI) | payer MEDICARE ==
[2020-02-11 13:08] VITALS: BP 102/65; PULSE 80; RESP 18; TEMP 98
--- NOTE | 2020-02-11 13:52 | P.GSHP ---
History of Present Illness H&P Date: 02/11/20 Chief Complaint: enlarged left breast Kulwant is a 74 -year-old male seen in consultation for DR. Patel who states he has some enlargement of the left breast. The enlargement started approximately a year ago and became stable about 2 months ago. He does not have any pain. [place] [address]. This revealed a mass like density possible global asymmetry in the subareolar left breast measuring up to 5.4 cm. There was some subareolar gynecomastia on the right no suspicious calcifications. This was felt to be incomplete and a breast ultrasound was recommended[place] [address]. This revealed very dense areas noted within the left breast. No axillary lymphadenopathy. In the right breast a 5 x 5 mm echogenic lesion at 11:00 1 cm from the nipple. Consider surgical evaluation to assess for any suspicious palpable areas that would be amiable to palpation guided biopsy on the left. Right breast ultrasound 6 month follow-up for incidental 11:00 lesion. He does not have any pain in his breast. He has never had any breast biopsy. No history of any trauma or infection in the breast. He has not noted any swelling in his testicles. He has never had prostate cancer, but has enlargement and is on Flomax. Patient also on Finasteride. 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 decreased hearing Social History: smoke: former stopped in 1983 for 20 years, 1/2 PPD alcohol: none last 25 years drugs: none - Constitutional Constitutional: Denies chills, Denies fever - EENT Eyes: bilateral as per HPI Ears: bilateral: decreased hearing Ears, nose, mouth and throat: Reports headache - Breasts Breasts: bilateral: as per HPI - Cardiovascular Cardiovascular: Reports as per HPI - Respiratory Respiratory: Denies cough, Denies 7 - Gastrointestinal Gastrointestinal: Reports as per HPI - Genitourinary (Male) Genitourinary: Reports kidney stones - Musculoskeletal Comment: arthritis Musculoskeletal: Reports myalgias - Integumentary Integumentary: Denies pruritus, Denies rash - Neurological Comment: prior CVA - Psychiatric Psychiatric: Reports anxiety, Reports depression - Endocrine Endocrine: Denies fatigue, Denies weight change - Hematologic/Lymphatic Comment: eloquis - Allergic/Immunologic Allergic/Immunologic: Reports as per HPI Past Medical History Past Medical History: Atrial Fibrillation, Heart Failure, CVA/TIA, Eye Disorder, GERD/Reflux, Hearing Disorder / Deafness, Hyperlipidemia, Hypertension, Memory Impairment, Myocardial Infarction ([place]), Osteoarthritis (OA), Prostate Disorder, Renal Disease, Respiratory Disorder, Thyroid Disorder Additional Past Medical History / Comment(s): dysphagia, prev dilation, stage 4 kidney failure, stroke behind rt eye-poor vision, macular degeneration harris eyes, migraine & cluster headaches, [place]'s x 2 (age unknown), cardiomyopathy, hole in stomach from excedrin -it caused aspiration after which he was in an induced coma and on a ventilator for 9 days, 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 Last Myocardial Infarction Date:: unknown History of Any Multi-Drug Resistant Organisms: MRSA Date of last positivie culture/infection: 08/15/09 MDRO Source:: LUNGS Past Surgical History: AICD, Bowel Resection, Heart Catheterization With Stent, Hernia Repair, Orthopedic Surgery, Pacemaker, Prostate Surgery, Tonsillectomy Additional Past Surgical History / Comment(s): EGD with dilation, 12/28/14 Lap jose fundoplasty with mesh and lap lysis of adhesions. AICD 2008 with rep lacement 08/2013 (medtronic), 1995 bowel resection d/t perforation with colostomy with eventual reversal of colostomy, 2009-surgery for "hole in stomach", 2007 blephoplasty bilaterally, 2001 deviated septum, 2003 TURP, 1975 vasectomy, 02/2013 R rotator cuff, numerous lipoma removals-4 from L leg, 05/2014, 08/2013 EGD for removal of dentist spray nozzle, 1955 Head surgery at [facility], 1975 vasectomy, lithrotripsy, bilateral inquinal hernia repairs with R side done x3, Past Anesthesia/Blood Transfusion Reactions: Postoperative Nausea & Vomiting (PONV) Additional Past Anesthesia/Blood Transfusion Reaction / Comment(s): Pt has never recieved blood Date of Last Stent Placement:: 2007 Type of Cardiac Device: AICD Device Placement Date:: 08/2013 Medtronic Past Psychological History: Anxiety, Depression Additional Psychological History / Comment(s): . Smoking Status: Never smoker Past Alcohol Use History: None Reported Additional Past Alcohol Use History / Comment(s): Pt started smoking about 1951 and quit in 1981. a pack would last 1.5 days. quit drinking 1969 Past Drug Use History: None Reported - Past Family History Brother(s) Family Medical History: Cancer Additional Family Medical History / Comment(s): Patient has 2 brothers that are both alive. One has history of prostate cancer. Father Family Medical History: Renal Disease, Respiratory Disorder Additional Family Medical History / Comment(s): Father at age 75 from renal failure. Mother Family Medical History: Coronary Artery Disease (CAD), Dementia Additional Family Medical History / Comment(s): Mother at age 94 from Alzheimer dementia. Sister(s) Family Medical History: Osteoarthritis (OA) Additional Family Medical History / Comment(s): Patient has one sister with osteoarthritis. Medications and Allergies Home Medications Medication Instructions Recorded Confirmed Type Dicyclomine [Bentyl] 20 mg PO AC-TID PRN 10/27/13 01/02/20 History Lovastatin [Mevacor] 40 mg PO HS 10/27/13 01/02/20 History Hydrocortisone [Cortef] 10 mg PO BID #0 04/08/18 01/02/20 Rx Midodrine HCl [ProAmatine] 10 mg PO TID #0 05/10/18 01/02/20 Rx Amiodarone [Cordarone] 200 mg PO QAM 07/15/18 01/02/20 History Finasteride [Proscar] 5 mg PO DAILY 07/15/18 01/02/20 History Tamsulosin HCl [Flomax] 0.4 mg PO HS 07/15/18 01/02/20 History Apixaban [Eliquis] 2.5 mg PO BID #60 tab 07/19/18 01/02/20 Rx Albuterol Sulfate [Proair Hfa] 2 puff INHALATION RT-TID PRN 12/07/18 01/02/20 History Potassium Chloride ER [K-Dur 20] 20 meq PO DAILY 12/07/18 01/02/20 History oxyCODONE-APAP 7.5-325MG [Percocet 0.5 - 1 tab PO Q8H PRN 12/07/18 01/02/20 History 7.5-325 mg] Furosemide [Lasix] 40 mg PO BID-W/MEALS 03/08/19 01/02/20 History Furosemide [Lasix] 80 mg PO QAM 03/08/19 01/02/20 History Levothyroxine Sodium [Synthroid] 50 mcg PO DAILY 03/08/19 01/02/20 History calcitrioL [Calcitriol] 0.25 mcg PO DAILY 03/08/19 01/02/20 History Carvedilol [Coreg] 3.125 mg PO BID 01/02/20 01/02/20 History Ergocalciferol (Vitamin D2) 50,000 unit PO Q30D 01/02/20 01/02/20 History [Drisdol] Zolpidem [Ambien] 7.5 mg PO HS PRN 01/02/20 01/02/20 History allopurinoL [Zyloprim] 100 mg PO BID 01/02/20 01/02/20 History Allergies Allergy/AdvReac Type Severity Reaction Status Date / Time Iodinated Contrast Media Allergy Rash/Hives Verified 02/11/20 13:05 [Iodinated Contrast Media - IV Dye] nitroglycerin Allergy passed out Verified 02/11/20 13:05 adhesive AdvReac SKIN TURNS Verified 02/11/20 13:05 RED piperacillin sodium AdvReac Confusion Verified 02/11/20 13:05 [From Zosyn] tazobactam sodium AdvReac Confusion Verified 02/11/20 13:05 [From Zosyn] Surgical - Exam Vital Signs Temp Pulse Resp BP Pulse Ox 98.0 F 80 18 102/65 95 02/11/20 13:05 02/11/20 13:05 02/11/20 13:05 02/11/20 13:05 02/11/20 13:05 BMI 21.6 - General thin - Eyes normal ocular movement - ENT decreased hearing - Neck no masses, trachea midline - Respiratory normal respiratory effort, clear to auscultation - Cardiovascular Defibrillator in place left chest wall Heart Sounds: normal: S1, S2 - Abdomen Abdomen: soft, bowel sounds - Integumentary normal turgor - Neurologic no disoriented, no combative - Musculoskeletal normal gait - Psychiatric oriented to time, oriented to person, oriented to place Breast exam: right breast: Findings consistent with gynecomastia Right axilla: No adenopathy of concern Left breast: Multiple positional exam findings consistent with gynecomastia and no discrete dominant mass or nodule of concern, particularly attention is paid to the area noted on the mammogram and ultrasound Left axilla: No adenopathy of concern Bilateral testicular exam: No enlargement of the testicles, no masses of concern Results Mammogram and ultrasound reviewed with Dr. 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 Repeat bilateral ultrasound of the breast in 6 months with physician exam at that time 2. Medical management of medical conditions 3. At this time the patient declines any further workup of the enlargement of the breast I have had a discussion with the patient and his regarding the enlargement of the breast, and asymmetric enlargement of the left breast. I discussed with them that the radiographic findings are not completely consistent with gynecomastia and given them the option of an ultrasound-guided core biopsy of the left breast. At this time he has declined this and states that at most he will do a repeat ultrasound in 6 months. I've also offered to repeat the ultrasound at a shorter interval at 3-4 months and again he has declined. There is nothing palpable that would direct a biopsy of either breast at this time. CC: Dr. Patel encounter 45 minutes, > 50% of time in planning and counselling
== END | disposition home or self-care (01) ==
LOC: WWCWWP 12:46
PROVIDERS: ATTEND Surgery
DX: Z53.9 Procedure and treatment not carried out, unspecified reason (principal)

== ENCOUNTER 2020-08-22 10:35 | Emergency (ER) | payer MEDICARE ==
[2020-08-22 11:02] VITALS: TEMP 97.7
[2020-08-22 13:34] LABS: Potassium 2.7 mmol/L (3.5-5.1)
[2020-08-22] MEDS ORDERED: POTASSIUM CHLORIDE ER 20 MEQ TAB.ER PO STA ×2 (13:41→14:49)
--- NOTE | 2020-08-22 13:46 | ED ---
Medical Decision Making - Lab Data Result diagrams: 08/22/20 15:20 - EKG Data -: EKG Interpreted by Me EKG shows normal: sinus rhythm Rate: normal <Mickey Pinto - Last Filed: 08/22/20 16:10> - Lab Data Result diagrams: 08/22/20 15:20 <Tom Khan - Last Filed: 08/26/20 12:00> - Medical Decision Making Case discussed with Dr. Khan. 20 mEq of potassium ordered for IV, 20 mg ordered for oral we'll recheck potassium after both finished. Potassium did come up to low normal levels after IV infusion. Patient discharged home with at home oral potassium. (Mickey Pinto) Dictation was produced using [employer] dictation software. please excuse any grammatical, word or spelling errors. This patient was cared for during a federal and state declared state of emergency secondary to Covid 19 Medical Screening exam: Patient is a 75-year-old male with multiple comorb idities. He had routine blood testing performed yesterday at the [facility]. Patient denies any symptoms. He states that these labs were performed just per routine schedule. Patient states he got a call today stating that his potassium was low and his renal markers were elevated. He denies any weakness. Denies any symptoms whatsoever. Primary care physician told him to come to the emergency department to have his potassium replaced. Patient has chronic kidney disease. He still makes urine. He no plans for dialysis. Has not seen a kidney doctor. Her ordered by triage nurse. He has potassium 2.7 bicarb of 41 chloride of 88 sodium of 138. I will be ordering a full metabolic panel. Patient has history of renal disease. We will gently replace his potassium. Still states he thinks urine. 09/05/20 1159 is able to get in contact with patient. He did have an appointment with [facility]. He is having his potassium rechecked. Patient denies any complaints at this time. He feels well and has another follow-up appointment on Friday. (Tom Khan) - Lab Data Lab Results 08/22/20 08/22/20 Range/Units 12:02 15:20 Sodium 138 136 L (137-145) mmol/L Potassium 2.7 L* 2.8 L (3.5-5.1) mmol/L Chloride 88 L 89 L (98-107) mmol/L Carbon Dioxide 41 H* 42 H* (22-30) mmol/L Anion Gap 9 7 mmol/L BUN 68 H (9-20) mg/dL Creatinine 3.34 H (0.66-1.25) mg/dL Est GFR (CKD-EPI)AfAm 19 (>60 ml/min/1.73 sqM) Est GFR (CKD-EPI)NonAf 17 (>60 ml/min/1.73 sqM) Glucose 113 H (74-99) mg/dL Calcium 8.4 (8.4-10.2) mg/dL - EKG Data EKG Comments: Ventricular rate 77 bpm, IL interval, QRS duration 162 ms, QT/QTc 548/620, PareT axes *area Ventricular paced rhythm, abnormal ECG./134/-36 (Mickey Pinto) Disposition Is patient prescribed a controlled substance at d/c from ED?: No Time of Disposition: 16:12 <Mickey Pinto - Last Filed: 08/22/20 16:10> Is patient prescribed a controlled substance at d/c from ED?: No <Tom Khan - Last Filed: 08/26/20 12:00> Clinical Impression: Hypokalemia Disposition: HOME SELF-CARE Condition: Stable Instructions (If sedation given, give patient instructions): Hypokalemia (ED) Additional Instructions: Please return to the Emergency Department if symptoms worsen or any other concerns. Follow-up with primary care in 3-5 days. Take at home potassium daily until prescription runs out. May have to get levels rechecked at her primary care. Prescriptions: Potassium Chloride [K-Tab ER] 20 meq PO DAILY 5 Days #5 tablet.er Referrals: Merritt Patel MD [Primary Care Provider] - 1-2 days
[2020-08-22] MEDS ORDERED: POTASSIUM CHLORIDE 10 MEQ in WATER FOR INJECTION 1 100ML.BAG IVPB SCH (14:30)
[2020-08-22] MEDS ORDERED: POTASSIUM CHLORIDE 20 MEQ in WATER FOR INJECTION 1 100ML.BAG IVPB STA (14:50)
[2020-08-22 15:35] LABS: Calcium 8.4 mg/dL (8.4-10.2); Potassium 2.8 mmol/L (3.5-5.1)
[2020-08-22 17:21] VITALS: BP 125/84; PULSE 72; RESP 16
== END 2020-08-22 17:21 | disposition home or self-care (01) ==
LOC: EC 10:35
DX: E87.6 Hypokalemia (principal); N18.9 Chronic kidney disease, unspecified
CPT/HCPCS: 36415; 93005; 80051; 80048; 99284; J3480

== ENCOUNTER → 2020-12-01 | Outpatient (CLI) | payer MEDICARE ==
--- NOTE | 2020-12-01 11:32 | CT ---
EXAMINATION TYPE: CT cervical spine wo con DATE OF EXAM: 12/01/2020 COMPARISON: HISTORY: Neck pain for several years with multiple injuries. CT DLP: 584 mGycm Automated exposure control for dose reduction was used. TECHNIQUE: CT scan of the cervical spine is obtained without contrast, axial images are obtained, sa gittal and coronal reformatted images are also reviewed. FINDINGS: Assessment spinal canal limited due to resolution. Prevertebral soft tissues within normal limits. Visualized parotid glands have a normal appearance an d there is carotid artery calcification. Lung apices are clear and there is biapical pleural thickeni ng. At C2-C3 there is degenerative disc disease and facet arthropathy greater on the left. This results i n moderate left foraminal encroachment. C3-C4 there is severe degenerative disc disease with bilateral uncovertebral joint hypertrophy and fa cet arthropathy greater on the right with severe right-sided foraminal encroachment. C4-C5 there is a 2 mm anterolisthesis with marked right-sided facet arthropathy. Mild bilateral uncov ertebral joint hypertrophy. Mild effacement of thecal sac. Moderate right-sided foraminal encroachmen t. C5-C6 there is severe degenerative disc disease with bilateral uncovertebral joint hypertrophy and fa cet arthropathy. Findings result in moderate bilateral foraminal encroachment. There is effacement of thecal sac. Canal stenosis not excluded. At C6-C7 there is a large right paracentral hypertrophic spur with uncovertebral joint hypertrophy an d facet arthropathy. Suggestion of thecal sac impression and canal stenosis. Severe right-sided jose inal encroachment and mild to moderate left foraminal encroachment. At C7-T1 there is marked facet arthropathy and uncovertebral joint hypertrophy in the left with sever e left-sided foraminal encroachment. Spinal canal limited in assessment due to artifact. IMPRESSION: 1. Multilevel severe degenerative disc disease with hypertrophic spondylosis and facet arthropathy re sulting in multilevel severe foraminal encroachment. Canal stenosis at C4-5, C5-6 and C6-C7 suspected . Recommend follow-up MRI.
== END | disposition home or self-care (01) ==
LOC: RADCTMAIN 10:34
PROVIDERS: ATTEND Nurse Practitioner Acute Care
DX: M48.02 Spinal stenosis, cervical region (principal); M47.812 Spondylosis without myelopathy or radiculopathy, cervical region; M50.323 Other cervical disc degeneration at C6-C7 level; M12.88 Other specific arthropathies, not elsewhere classified, other specified site
CPT/HCPCS: 72125